=== PATIENT | female | born 1945 | race Caucasian/White ===

== ENCOUNTER 2017-07-29 16:50 | Inpatient (IN) | payer MEDICARE, MEDICAID ==
[2017-07-29] VITALS (8 sets, daily range): BP systolic 99–152; BP diastolic 57–74; PULSE 112–167; RESP 18–34; TEMP 97.9; O2SAT 92–100
[~2017-07-29] VITALS: Ht 162.6 cm; Wt 87.0 kg
[~2017-07-29 16:50] MED LIST: AMLO10TA2 PO; ASPI1TAB57 PO; ATOR40TA16 PO; LISI10TA3 PO; MELO15TA20 PO; METF500T PO; VARE1 PO; VENTAER INH
[2017-07-29] MEDS ORDERED: IODIXANOL 320 MG/ML 10 ML VIAL (for Rad CT) IVCONTRAST ONE (16:51)
[2017-07-29] MEDS ORDERED: SODIUM CHLORIDE 0.9% FLUSH 10 ML FLUSH IVF PRN (17:00)
[2017-07-29] MEDS ORDERED: methylPREDNISolone SOD SUCC 125 MG/2 ML VIAL IV PUSH ONE (17:00)
--- NOTE | 2017-07-29 17:06 | PD ---
HPI Chief Complaint: respiratory Time Seen by Provider: 17:00 Travel History International Travel<30 days: No Contact w/Intl Traveler<30days: No History of Present Illness HPI 71-year-old female with PMH of CAD status post CABG, PVD, DM, HTN, COPD, current smoker presents to the ED via EMS for evaluation at 2 day history of worsening shortness of breath. Also complains of tight sensation in the chest. That pain is rated 3/10. No alleviating or exacerbating factors reported. Patient states that the chest pain is chronic but has been worse over the last 2 days. Patient states that she could not sleep lying down last night and had to move to the recliner. She endorses chronic cough productive of pale sputum. She endorses edema in the lower extremities, worsening over the last few days. She denies fevers, chills, palpitations, nausea, vomiting, dysuria. EMS reports that they administered 2 albuterol treatments and gave the patient 3 doses of sublingual nitroglycerin en route. Patient states chest pain is now resolved. Patient took 325 mg of aspirin today. Industrial Psychology Teacher is Dr. Madden. [facility] Social History Tobacco Use: Yes Allergies-Medications (Allergen,Severity, Reaction): Coded Allergies: No Known Allergies (Unverified Allergy, Unknown, 07/29/17) Reported Meds & Prescriptions Reported Meds & Active Scripts Active Metformin (Metformin HCl) 500 Mg Tab 500 Mg PO DAILY With a meal Atorvastatin (Atorvastatin Calcium) 40 Mg Tab 40 Mg PO HS Lisinopril 10 Mg Tab 10 Mg PO DAILY Amlodipine (Amlodipine Besylate) 10 Mg Tab 10 Mg PO DAILY Reported Gabapentin 300 Mg Cap 300 Mg PO HS Aspirin 81 (Aspirin) 81 Mg Tabdr 325 Mg PO DAILY 30 Days Ventolin Hfa 18 GM Inh (Albuterol Sulfate) 90 Mcg/Act Aer 2 Puff INH Q4H PRN Review of Systems Except as stated in HPI: all other systems reviewed are Neg Physical Exam Narrative GENERAL: Well-nourished, well-developed white female in mild respiratory distress. SKIN: Focused skin assessment warm/dry. HEAD: Normocephalic. EYES: No scleral icterus. No injection or drainage. NECK: Supple, trachea midline. No JVD or lymphadenopathy. CARDIOVASCULAR: Irregularly irregular rate and rhythm without murmurs, gallops, or rubs. CHEST: Nontender throughout without deformity or crepitus. No retractions. RESPIRATORY: Breath sounds tight and wheezing bilaterally. Positive accessory muscle use. GASTROINTESTINAL: Abdomen soft, non-tender, nondistended. MUSCULOSKELETAL: No cyanosis. 1+ edema to the mid smith bilaterally. BACK: Nontender without obvious deformity. No CVA tenderness. Data Data Last Documented VS Vital Signs Date Time Temp Pulse Resp B/P (MAP) Pulse Ox O2 Delivery O2 Flow Rate FiO2 07/29/17 19:32 23 07/29/17 18:39 112 111/64 (80) 99 BiPAP 07/29/17 18:02 4.00 07/29/17 16:55 97.9 Orders Orders Complete Blood Count With Diff (07/29/17 17:00) Comprehensive Metabolic Panel (07/29/17 17:00) B-Type Natriuretic Peptide (07/29/17 17:00) Act Partial Throm Time (Ptt) (07/29/17 17:00) Prothrombin Time / Inr (Pt) (07/29/17 17:00) Magnesium (Mg) (07/29/17 17:00) Ckmb (Isoenzyme) Profile (07/29/17 17:00) Troponin I (07/29/17 17:00) Urinalysis - C+S If Indicated (07/29/17 17:00) Iv Access Insert/Monitor (07/29/17 17:00) Electrocardiogram (07/29/17 17:00) Ecg Monitoring (07/29/17 17:00) Oximetry (07/29/17 17:00) Oxygen Administration (07/29/17 17:00) Chest, Single Ap (07/29/17 17:00) Ct Pulmonary Angiogram (07/29/17 17:00) Sodium Chloride 0.9% Flush (Ns Flush) (07/29/17 17:00) Methylprednisolone So Succ Inj (Solumedr (07/29/17 17:00) Albuterol-Ipratropium Neb (Duoneb Neb) (07/29/17 17:00) Nitroglycerin 2% Oint (Nitroglycerin 2% (07/29/17 17:15) Furosemide Inj (Lasix Inj) (07/29/17 18:15) Diltiazem Inj (Cardizem Inj) (07/29/17 18:15) Heparin Inj (Heparin Inj) (07/29/17 18:15) Heparin Inj (Heparin Inj) (07/30/17 00:15) Heparin Inj (Heparin Inj) (07/30/17 00:15) Heparin-D5w 25,000 U/250 Ml (Heparin-D5w (07/29/17 18:15) Resp Bipap / Cpap Non Invas Vt (07/29/17 ) Morphine Inj (Morphine Inj) (07/29/17 18:30) Ondansetron Inj (Zofran Inj) (07/29/17 18:30) Electrocardiogram (07/29/17 17:48) Iodixanol 320 Inj (Rad Ct) (Visipaque 32 (07/29/17 16:51) Act Partial Throm Time (Ptt) (07/30/17 01:30) Admit Order (Ed Use Only) (07/29/17 19:42) Labs Laboratory Tests Test 07/29/17 17:10 White Blood Count 14.9 TH/MM3 Red Blood Count 4.16 MIL/MM3 Hemoglobin 13.4 GM/DL Hematocrit 40.6 % Mean Corpuscular Volume 97.6 FL Mean Corpuscular Hemoglobin 32.3 PG Mean Corpuscular Hemoglobin Concent 33.1 % Red Cell Distribution Width 13.5 % Platelet Count 307 TH/MM3 Mean Platelet Volume 8.8 FL Neutrophils (%) (Auto) 79.7 % Lymphocytes (%) (Auto) 11.4 % Monocytes (%) (Auto) 7.4 % Eosinophils (%) (Auto) 1.0 % Basophils (%) (Auto) 0.5 % Neutrophils # (Auto) 11.9 TH/MM3 Lymphocytes # (Auto) 1.7 TH/MM3 Monocytes # (Auto) 1.1 TH/MM3 Eosinophils # (Auto) 0.2 TH/MM3 Basophils # (Auto) 0.1 TH/MM3 CBC Comment DIFF FINAL Differential Comment Prothrombin Time 10.3 SEC Prothromb Time International Ratio 1.0 RATIO Activated Partial Thromboplast Time 26.9 SEC Blood Urea Nitrogen 20 MG/DL Creatinine 1.59 MG/DL Random Glucose 131 MG/DL Total Protein 8.1 GM/DL Albumin 3.9 GM/DL Calcium Level 9.2 MG/DL Magnesium Level 1.9 MG/DL Alkaline Phosphatase 92 U/L Aspartate Amino Transf (AST/SGOT) 26 U/L Alanine Aminotransferase (ALT/SGPT) 23 U/L Total Bilirubin 0.4 MG/DL Sodium Level 138 MEQ/L Potassium Level 4.3 MEQ/L Chloride Level 104 MEQ/L Carbon Dioxide Level 22.5 MEQ/L Anion Gap 12 MEQ/L Estimat Glomerular Filtration Rate 32 ML/MIN Total Creatine Kinase 91 U/L Troponin I 0.39 NG/ML B-Type Natriuretic Peptide 493 PG/ML MDM Medical Decision Making Medical Screen Exam Complete: Yes Emergency Medical Condition: Yes Differential Diagnosis COPD exacerbation versus pneumonia versus ACS versus angina versus CHF versus other Narrative Course 71-year-old female with PMH of CAD status post CABG, PVD, DM, HTN, COPD, current smoker presents to the ED via EMS for evaluation at 2 day history of worsening SOB and orthopnea. Also complains of tight sensation in the chest, rated 3/10. She endorses chronic cough productive of pale sputum. She endorses worsening edema in the lower extremities 2 days. EMS reports that they administered 2 albuterol treatments and gave the patient 3 doses of sublingual nitroglycerin en route. Patient states chest pain is now resolved. Patient took 325 mg of aspirin today. Industrial Psychology Teacher is Dr. Madden. Patient afebrile, heart rate 139, BP 152/74, respiratory rate 34 with a O2 saturation of 92% on room air on presentation. On exam this is an obese white female in no acute distress. Heart rate irregularly irregular with tight and wheezy breath sounds bilaterally. 1+ LE edema bilaterally. EKG rate 40, A. fib with RVR. Normal axis. ST depression in the lateral leads. Reviewed by Dr. Sigala. CXR: Mild bibasilar infiltrates, interstitial changes in both lung valle. Troponin: 0.39. BNP 493 CBC: WBC 14.9. Hemoglobin 13.4. INR 1.0. CMP: BUN 20, creatinine 1.59. Glucose 131. Patient began to complain of chest pain and repeat EKG was performed with no evolving changes. Nitro paste was applied. On recheck O2 saturations in the low 90s despite 4 L by nasal cannula. BiPAP was applied. Patient was administered 10 mg Cardizem, 40 mg Lasix, heparin bolus and drip was initiated. Patient complained of arthritic pain and was administered 4 mg morphine with an accompanying dose of Zofran. Dr. Porter spoke with Dr. Miller, section maintainer for Dr. Madden, who is agreeable with the care plan and would like the patient made nothing by mouth at midnight. Plan to admit to the residents. The patient is agreeable to this plan. I spoke with the residents who agreed to accept the patient to the medicine service under Dr. Sun. Please see medicine notes for disposition. Ana Paula Fitzgerald Jul 29, 2017 17:05
[2017-07-29] MEDS: RESP: ALBUTEROL 2.5 MG/IPRATROPIUM 0.5 MG NEB (SCH) INH ×2 (17:14→17:15)
[2017-07-29] MEDS ORDERED: ASPIRIN 325 MG TAB PO ONE (17:15)
[2017-07-29] MEDS ORDERED: NITROGLYCERIN 2% OINT 1 GM PACKET TOP ONE (17:15)
--- NOTE | 2017-07-29 17:20 | RADRPT ---
EXAM DATE/TIME: 07/29/2017 17:12 [facility] COMPARISON: No previous studies available for comparison. INDICATIONS : Patient states chest pains. MEDICAL HISTORY : Hypertension. SURGICAL HISTORY : CABG. ENCOUNTER: Initial ACUITY: 1 day PAIN SCORE: 6/10 LOCATION: Bilateral chest FINDINGS: A single view of the chest demonstrates mild infiltrates in both lung bases. There is interstitial ch anges bilaterally suggestive of some interstitial disease. Heart size is within normal limits. There is evidence of previous cardiothoracic surgery. No significant pleural effusions. The bony structures are grossly intact. Board Certified Radiologist. This report was verified electronically. Conclusion: Mild bibasilar infiltrates. Interstitial changes in both lung valle.
[2017-07-29] MEDS ORDERED: GABA300C5 PO (17:26)
[2017-07-29 17:35] LABS: AUTOMATED NEUTROPHIL # 11.9 TH/MM3 (1.8-7.7); BASOPHIL # 0.1 TH/MM3 (0-0.2); BASOPHIL % 0.5 % (0.0-2.0); EOSINOPHIL # 0.2 TH/MM3 (0-0.4); HEMATOCRIT 40.6 % (35.0-46.0); HEMOGLOBIN 13.4 GM/DL (11.6-15.3); LYMPH % 11.4 % (9.0-44.0); LYMPHOCYTE # 1.7 TH/MM3 (1.0-4.8); MEAN CELL VOLUME 97.6 FL (80.0-100.0); MEAN CORPUSCULAR HEMOGLOBIN 32.3 PG (27.0-34.0); MEAN CORPUSCULAR HGB CONC 33.1 % (32.0-36.0); MEAN PLATELET VOLUME 8.8 FL (7.0-11.0); MONO % 7.4 % (0.0-8.0); MONOCYTE # 1.1 TH/MM3 (0-0.9); NEUT % 79.7 % (16.0-70.0); PLATELET COUNT 307 TH/MM3 (150-450); RED BLOOD COUNT 4.16 MIL/MM3 (4.00-5.30); RED CELL DISTRIBUTION WIDTH 13.5 % (11.6-17.2); WHITE BLOOD COUNT 14.9 TH/MM3 (4.0-11.0)
[2017-07-29 17:47] LABS: PROTHROMBIN TIME - PATIENT 10.3 SEC (9.8-11.6)
[2017-07-29 18:02] LABS: ALBUMIN 3.9 GM/DL (3.4-5.0); AST (GOT) 26 U/L (15-37); BICARBONATE 22.5 MEQ/L (21.0-32.0); BLOOD UREA NITROGEN 20 MG/DL (7-18); CALCIUM 9.2 MG/DL (8.5-10.1); CHLORIDE 104 MEQ/L (98-107); CREATININE 1.59 MG/DL (0.50-1.00); GLOMERULAR FILTRATION RATE 32 ML/MIN (>89); GLUCOSE,RANDOM 131 MG/DL (74-106); MAGNESIUM 1.9 MG/DL (1.5-2.5); SODIUM (NA) 138 MEQ/L (136-145)
[2017-07-29 18:04] LABS: ALKALINE PHOSPHATASE 92 U/L (45-117); ALT (GPT) 23 U/L (10-53); TOTAL BILIRUBIN ADULT 0.4 MG/DL (0.2-1.0); TOTAL PROTEIN 8.1 GM/DL (6.4-8.2); TROPONIN I 0.39 NG/ML (0.02-0.05)
[2017-07-29] MEDS ORDERED: FUROSEMIDE 40 MG/4 ML VIAL IV PUSH ONE (18:15)
[2017-07-29] MEDS ORDERED: ACETAMINOPHEN/HYDROcodone 325 MG/5 MG TAB PO ONE (18:15)
[2017-07-29] MEDS ORDERED: DILTIAZEM HCL 25 MG/5 ML VIAL IV ONE (18:15)
[2017-07-29] MEDS ORDERED: HEPARIN SODIUM - IV 10,000 UNITS/10 ML VIAL IV ONE (18:15)
[2017-07-29] MEDS ORDERED: MORPHINE SULFATE 2 MG/ML SYRINGE IV PUSH ONE (18:30)
[2017-07-29] MEDS ORDERED: ONDANSETRON HCL 4 MG/2 ML VIAL IV PUSH ONE (18:30)
--- NOTE | 2017-07-29 18:43 | PD ---
Physical Exam Date Seen by Provider: Jul 29, 2017 Time Seen by Provider: 17:30 Narrative I, Dr. Cole, have reviewed the advance practice practitioner's documentation and am in agreement, met with the patient face to face, made the diagnosis, and the medical decision making was done by me. *My assessment and Findings: Patient seen and evaluated with PA, please see PA notes for further details. She is here for worsening Dyspnea on exertion, chest discomfort, and comes in in respiratory distress. She is tachycardic with A. fib with RVR in the 140s. EKG is notable for T-wave depressions in the lateral leads, questionable underlying unstable angina. Had been given nitroglycerin by EMS with some relief. Saturations are low in the ER. Workup was initiated and nitroglycerin given. Laboratory Tests Test 07/29/17 17:10 White Blood Count 14.9 TH/MM3 (4.0-11.0) Neutrophils (%) (Auto) 79.7 % (16.0-70.0) Neutrophils # (Auto) 11.9 TH/MM3 (1.8-7.7) Monocytes # (Auto) 1.1 TH/MM3 (0-0.9) Blood Urea Nitrogen 20 MG/DL (7-18) Creatinine 1.59 MG/DL (0.50-1.00) Random Glucose 131 MG/DL (74-106) Estimat Glomerular Filtration Rate 32 ML/MIN (>89) Troponin I 0.39 NG/ML (0.02-0.05) B-Type Natriuretic Peptide 493 PG/ML (0-100) Last 24 hours Impressions Chest X-Ray 07/29/17 1700 Signed Impressions: Service Date/Time: Saturday, July 29, 2017 17:12 - CONCLUSION: Mild bibasilar infiltrates. Interstitial changes in both lung valle. MD Chest x-ray is concerning for bilateral infiltrates, questionable underlying pulmonary edema. BNP is 500. She also has elevated troponin as well. She is initiated on Cardizem drip and bolus for rate control, nitroglycerin was given, heparin initiated due to new onset A. fib since we did not know any previous history. Lasix was also given. Case was discussed with Dr. Miller and he states he keep the patient n.p.o. after midnight. He would consider putting the patient on nitroglycerin drip if the above is not improving her symptoms. She was also put on BiPAP as well for respiratory distress. Case is discussed with family practice resident service for admission for further treatment. Data Data Last Documented VS Vital Signs Date Time Temp Pulse Resp B/P (MAP) Pulse Ox O2 Delivery O2 Flow Rate FiO2 07/29/17 18:02 167 24 120/64 (82) 93 Nasal Cannula 4.00 07/29/17 16:55 97.9 Orders Orders Complete Blood Count With Diff (07/29/17 17:00) Comprehensive Metabolic Panel (07/29/17 17:00) B-Type Natriuretic Peptide (07/29/17 17:00) Act Partial Throm Time (Ptt) (07/29/17:00) Prothrombin Time / Inr (Pt) (07/29/17:00) Magnesium (Mg) (07/29/17 17:00) Ckmb (Isoenzyme) Profile (07/29/17 17:00) Troponin I (07/29/17:00) Urinalysis - C+S If Indicated (07/29/17 17:00) Iv Access Insert/Monitor (07/29/17 17:00) Electrocardiogram (07/29/17 17:00) Ecg Monitoring (07/29/17:00) Oximetry (07/29/17 17:00) Oxygen Administration (07/29/17 17:00) Chest, Single Ap (07/29/17 17:00) Ct Pulmonary Angiogram (07/29/17 17:00) Sodium Chloride 0.9% Flush (Ns Flush) (07/29/17 17:00) Methylprednisolone So Succ Inj (Solumedr (07/29/17 17:00) Albuterol-Ipratropium Neb (Duoneb Neb) (07/29/17 17:00) Nitroglycerin 2% Oint (Nitroglycerin 2% (07/29/17 17:15) Furosemide Inj (Lasix Inj) (07/29/17 18:15) Diltiazem Inj (Cardizem Inj) (07/29/17 18:15) Heparin Inj (Heparin Inj) (07/29/17 18:15) Heparin Inj (Heparin Inj) (07/30/17 00:15) Heparin Inj (Heparin Inj) (07/30/17 00:15) Heparin-D5w 25,000 U/250 Ml (Heparin-D5w (07/29/17 18:15) Resp Bipap / Cpap Non Invas Vt (07/29/17 ) Morphine Inj (Morphine Inj) (07/29/17 18:30) Ondansetron Inj (Zofran Inj) (07/29/17 18:30) Labs Laboratory Tests Test 07/29/17 17:10 White Blood Count 14.9 TH/MM3 Red Blood Count 4.16 MIL/MM3 Hemoglobin 13.4 GM/DL Hematocrit 40.6 % Mean Corpuscular Volume 97.6 FL Mean Corpuscular Hemoglobin 32.3 PG Mean Corpuscular Hemoglobin Concent 33.1 % Red Cell Distribution Width 13.5 % Platelet Count 307 TH/MM3 Mean Platelet Volume 8.8 FL Neutrophils (%) (Auto) 79.7 % Lymphocytes (%) (Auto) 11.4 % Monocytes (%) (Auto) 7.4 % Eosinophils (%) (Auto) 1.0 % Basophils (%) (Auto) 0.5 % Neutrophils # (Auto) 11.9 TH/MM3 Lymphocytes # (Auto) 1.7 TH/MM3 Monocytes # (Auto) 1.1 TH/MM3 Eosinophils # (Auto) 0.2 TH/MM3 Basophils # (Auto) 0.1 TH/MM3 CBC Comment DIFF FINAL Differential Comment Prothrombin Time 10.3 SEC Prothromb Time International Ratio 1.0 RATIO Activated Partial Thromboplast Time 26.9 SEC Blood Urea Nitrogen 20 MG/DL Creatinine 1.59 MG/DL Random Glucose 131 MG/DL Total Protein 8.1 GM/DL Albumin 3.9 GM/DL Calcium Level 9.2 MG/DL Magnesium Level 1.9 MG/DL Alkaline Phosphatase 92 U/L Aspartate Amino Transf (AST/SGOT) 26 U/L Alanine Aminotransferase (ALT/SGPT) 23 U/L Total Bilirubin 0.4 MG/DL Sodium Level 138 MEQ/L Potassium Level 4.3 MEQ/L Chloride Level 104 MEQ/L Carbon Dioxide Level 22.5 MEQ/L Anion Gap 12 MEQ/L Estimat Glomerular Filtration Rate 32 ML/MIN Total Creatine Kinase 91 U/L Troponin I 0.39 NG/ML [facility] Medical Record Reviewed: Yes Supervised Visit with JEFFERY: Yes Diagnosis Primary Impression: New onset a-fib Additional Impressions: CHF (congestive heart failure) Unstable angina Admitting Information Admitting Physician Requests: Admit Aida Cole MD Jul 29, 2017 18:43
[2017-07-29] MEDS: HEPARIN-D5W 25,000 U/250 ML 250 ML IV PRN (19:29)
--- NOTE | 2017-07-29 19:36 | RADRPT ---
EXAM DATE/TIME: 07/29/2017 19:11 [facility] COMPARISON: No previous studies available for comparison. INDICATIONS : Chest pain, shortness of breath. IV CONTRAST: 75 cc Visipaque (iodixanol) IV RADIATION DOSE: 10.84 CTDIvol (mGy) MEDICAL HISTORY : Hypertension. SURGICAL HISTORY : CABG Hysterectomy. ENCOUNTER: Initial ACUITY: 1 day PAIN SCALE: 4/10 LOCATION: chest TECHNIQUE: Volumetric scanning of the chest was performed using a pulmonary embolism protocol MIP images were re constructed. Using automated exposure control and adjustment of the mA and/or kV according to patien t size, radiation dose was kept as low as reasonably achievable to obtain optimal diagnostic quality images. DICOM format image data is available electronically for review and comparison. Follow-up recommendations for detected pulmonary nodules are based at a minimum on nodule size and pa tient risk factors according to Fleischner Society Guidelines. FINDINGS: PULMONARY ARTERIES: No filling defects are seen in the pulmonary arteries through the segmental level. LUNGS: There is increased density at the posterior lower lobes bilaterally. PLEURAE: There is no pleural thickening or pleural effusion. MEDIASTINUM: There is good visualization of the great vessels of the middle mediastinum. No evidence of mediastin al or hilar adenopathy/mass. Atherosclerotic calcifications are present. MUSCULOSKELETAL: The patient is status post sternotomy. Spurs are seen in the thoracic spine. MISCELLANEOUS: The visualized upper abdominal organs demonstrate no acute abnormality. CONCLUSION: 1. No pulmonary embolus. 2. Bibasilar areas of consolidation or atelectasis. Jhony Cabrera MD on July 29, 2017 at 19:32 Board Certified Radiologist. This report was verified electronically.
[2017-07-29] MEDS ORDERED: NITROGLYCERIN 0.4 MG SL 25 TABS/BTL SL PRN (20:00)
[2017-07-29] MEDS ORDERED: SODIUM CHLORIDE 0.9% FLUSH 10 ML FLUSH IV FLUSH PRN (20:00)
[2017-07-29] MEDS ORDERED: BISACODYL 10 MG SUPP RECTAL PRN (20:00)
[2017-07-29] MEDS ORDERED: NALOXONE HCL 0.4 MG/ML AMP IV PUSH PRN (20:00)
[2017-07-29] MEDS ORDERED: SENNOSIDES 8.6 MG TAB PO PRN (20:00)
[2017-07-29] MEDS ORDERED: MAGNESIUM HYDROXIDE SUSP 30 ML CUP PO PRN (20:00)
[2017-07-29] MEDS ORDERED: LACTULOSE SYRUP 20 GM/30 ML CUP PO PRN (20:00)
--- NOTE | 2017-07-29 20:18 | HHI.HP ---
HPI Service Family Medicine Primary Care Physician Priyank Freire MD Admission Diagnosis A. fib RVR, elevated troponin, respiratory distress Diagnoses: International Travel<30 Days: No Contact w/Intl Traveler<30days: No Known Affected Area: No History of Present Illness Patient is a 71-year-old female with past medical history of CAD s/p CABG, PVD, DM, HTN, COPD brought to the ED via [facility] after she developed sxs of severe chest pain and shortness of breath. Patient states that she has chronic history of constant CP and SOB but today it was the worst it has been and she decided to call 911. CP is worst with exertion. Endorses palpitations, LE swelling, weight gain, and orthopnea. Denies N/V, abdominal pain, blurry vision. Patient also has history of Left arm pain and states she currently has Left arm pain worst from wrist to hand, she attributes this pain to arthritis but has not be officially diagnosed. 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 Quinteros. Patient reports she had an echo done last wk. She is not on home oxygen and ambulates with a walker at baseline. In the ED patient was found to be in A. fib with RVR, elevated troponin of 0.39 and with heart rate ranging from 110--160s. She was started on heparin drip, given Cardizem 10 mg IV1, lasix 40mg IV x1, morphine 4mg x1, nitroglycerin x1, solumedrol 125mg IV x1, duoneb x3. Patient took home medications aspirin 325mg and atorvastatin this a.m. Patient was also placed on BiPAP due to low oxygen saturation of 92. Review of Systems Constitutional: COMPLAINS OF: Fatigue (past couple months), Weight gain (in 6mons), Dizziness (today, now resolved), Change in appetite (today), DENIES: Fever, Weight loss, Chills Eyes: DENIES: Blurred vision, Vision loss Ears, nose, mouth, throat: COMPLAINS OF: Throat pain, Running Nose Respiratory: COMPLAINS OF: Cough (chronic), Wheezing, Sputum production (pale yellow), Shortness of breath Cardiovascular: COMPLAINS OF: Chest pain, Palpitations, Lower Extremity Edema, DENIES: Syncope Gastrointestinal: DENIES: Abdominal pain, Diarrhea, Nausea, Vomiting Genitourinary: COMPLAINS OF: Urinary frequency, DENIES: Dysuria Musculoskeletal: COMPLAINS OF: Back pain (chronic) Integumentary: DENIES: Rash Hematologic/lymphatic: DENIES: Bruising Neurologic: COMPLAINS OF: Localized weakness (chronic, left arem pain ), Paresthesias (hands), DENIES: Headache Past Family Social History Past Medical History Chronic Lower back pain Diabetes Type 2 - controlled metformin Hypertension Chronic Kidney Disease stage 3 (GFR 39, in 12/2016) COPD A fib Past Surgical History 3 stents in lower extremity Dr. Gardiner; 2015 (Left and right legs, and abdominal aorta) Right knee replacement; 2014 Dr. Alexander Lumbar Spine L5-S1 repair (2 spacers and rods, some hardware removed during second surgery); 2013 Dr. Valdes Right and Left Cataracts; 2005/2006, Dr. Montoya Triple CABG 2005; Dr. Romano Total Hysterectomy 1974 Foot surgery in 1972 Reported Medications Prescriptions Reviewed Last Reconciled on 05/23/17 10:51 by PRIYANK FREIRE 05/22/17 Metformin (Metformin) 500 Mg Tab 500 MG PO DAILY for Blood Sugar Management, #90 TAB 3 Refills Prov: Priyank Freire MD 05/22/17 Atorvastatin (Atorvastatin) 40 Mg Tab 40 MG PO HS for Cholesterol Management, #90 TAB 3 Refills Prov: Priyank Freire MD 05/21/17 Lisinopril (Lisinopril) 10 Mg Tab 10 MG PO DAILY, #90 TAB 3 Refills Prov: Priyank Freire MD 05/11/17 03/18/[address] (Aspirin 81) 81 Mg Tabdr 325MG PO DAILY for 30 Days, #30 TAB 0 Refills Reported 01/09/17 Amlodipine (Amlodipine) 10 Mg Tab 10 MG PO DAILY for Blood Pressure Management, #90 TAB 2 Refills Prov: Ap Huerta MD, R3 01/09/17 Albuterol 18 GM Inh (Ventolin Hfa 18 GM Inh) 90 Mcg/Act Aer 2 PUFF INH Q4H Y for SHORTNESS OF BREATH, #1 INHALER 0 Refills-- 5 -6 times a day advair BID, restarted last wk Allergies: Coded Allergies: No Known Allergies (Unverified Allergy, Unknown, 07/29/17) Family History Father - Diabetes Mellitus, passed at age of 69 y/o Mother - Ovarian cancer at the age 53 y/o 2 sisters - Good health 82 y/o, Nandini 76 y/o 3 children - healthy, son with HTN Social History Retired, lives alone and independent in activities of ADLs. Ambulates with walker at baseline. Current smoker: 1/2 pack per day since a couple of wks ago, prior smoking habit: 1 ppd for past 55 years, Denies alcohol and illicit drug use Son's contact info: Madhav Sosa [phone] Physical Exam Vital Signs Vital Signs Date Time Temp Pulse Resp B/P (MAP) Pulse Ox O2 Delivery O2 Flow Rate FiO2 07/29/17 19:51 121 20 115/64 (81) 100 BiPAP 100 07/29/17 19:32 23 07/29/17 18:39 112 23 111/64 (80) 99 BiPAP 07/29/17 18:02 167 24 120/64 (82) 93 Nasal Cannula 4.00 07/29/17 17:17 28 92 Nasal Cannula 4.00 07/29/17 17:10 93 Nasal Cannula 4.00 07/29/17 16:55 97.9 139 34 152/74 (100) 92 Physical Exam GENERAL: This is a well-nourished, well-developed patient, in no apparent distress. SKIN: No rashes, ecchymoses or lesions. Cool and dry. HEAD: Atraumatic. Normocephalic. EYES: Pupils equal round and reactive. Extraocular motions intact. No scleral icterus. No injection or drainage. ENT: Nose without bleeding, purulent drainage or septal hematoma. Unable to examine throat as pt was on Bipap machine. NECK: Trachea midline. No JVD or lymphadenopathy. Supple, nontender, no meningeal signs. CARDIOVASCULAR: irregular rate and rhythm without murmurs, gallops, or rubs. Chest pain not reproducible upon palpation. RESPIRATORY: Clear to auscultation. No wheezes, rales, or rhonchi. Limited to due bipap machine. GASTROINTESTINAL: Obese abdomen, soft, non-tender, nondistended. No hepato- splenomegaly, or palpable masses. No guarding. MUSCULOSKELETAL: Extremities without clubbing or cyanosis, +2 pedal edema noted BL. No joint tenderness, effusion, or edema noted. No calf tenderness. +2 DP pulses BL. NEUROLOGICAL: Awake and alert. Cranial nerves II through XII intact. Motor and sensory grossly within normal limits. Five out of 5 muscle strength in all muscle groups. Normal speech. Laboratory Laboratory Tests Test 07/29/17 17:10 White Blood Count 14.9 Red Blood Count 4.16 Hemoglobin 13.4 Hematocrit 40.6 Mean Corpuscular Volume 97.6 Mean Corpuscular Hemoglobin 32.3 Mean Corpuscular Hemoglobin Concent 33.1 Red Cell Distribution Width 13.5 Platelet Count 307 Mean Platelet Volume 8.8 Neutrophils (%) (Auto) 79.7 Lymphocytes (%) (Auto) 11.4 Monocytes (%) (Auto) 7.4 Eosinophils (%) (Auto) 1.0 Basophils (%) (Auto) 0.5 Neutrophils # (Auto) 11.9 Lymphocytes # (Auto) 1.7 Monocytes # (Auto) 1.1 Eosinophils # (Auto) 0.2 Basophils # (Auto) 0.1 CBC Comment DIFF FINAL Differential Comment Prothrombin Time 10.3 Prothromb Time International Ratio 1.0 Activated Partial Thromboplast Time 26.9 Blood Urea Nitrogen 20 Creatinine 1.59 Random Glucose 131 Total Protein 8.1 Albumin 3.9 Calcium Level 9.2 Magnesium Level 1.9 Alkaline Phosphatase 92 Aspartate Amino Transf (AST/SGOT) 26 Alanine Aminotransferase (ALT/SGPT) 23 Total Bilirubin 0.4 Sodium Level 138 Potassium Level 4.3 Chloride Level 104 Carbon Dioxide Level 22.5 Anion Gap 12 Estimat Glomerular Filtration Rate 32 Total Creatine Kinase 91 Troponin I 0.39 B-Type Natriuretic Peptide 493 Result Diagram: 07/29/170 07/29/17 171 Imaging Last Impressions Chest X-Ray 07/29/171699 Signed Impressions: Service Date/Time: Saturday, July 29, 2017 17:12 - CONCLUSION: Mild bibasilar infiltrates. Interstitial changes in both lung valle. CT Angiography 07/29/171699 Signed Impressions: Service Date/Time: Saturday, July 29, 2017 19:11 - CONCLUSION: 1. No pulmonary embolus. 2. Bibasilar areas of consolidation or atelectasis. MD Melecio Vazquez VTE Risk Assessment Caprini VTE Risk Assessment: Mod/High Risk (score >= 2) Caprini Risk Assessment Model Point Value = 1 Point Value = 2 Point Value = 3 Point Value = 5 Age 41-60 Minor surgery BMI > 25 kg/m2 Swollen legs Varicose veins or History of unexplained or recurrent spontaneous Oral contraceptives or hormone replacement Sepsis (< 1 month) Serious lung disease, including pneumonia (< 1 month) Abnormal pulmonary function Acute myocardial infarction Congestive heart failure (< 1 month) History of inflammatory bowel disease Medical patient at bed rest Age 61-74 Arthroscopic surgery Major open surgery (> 45 min) Laparoscopic surgery (> 45 min) Malignancy Confined to bed (> 72 hours) Immobilizing plaster cast Central venous access Age >= 75 History of VTE Family history of VTE Factor V Leiden Prothrombin [id number] Lupus anticoagulant Anticardiolipin antibodies Elevated serum homocysteine Heparin-induced thrombocytopenia Other congenital or acquired thrombophilia Stroke (< 1 month) Elective arthroplasty Hip, pelvis, or leg fracture Acute spinal cord injury (< 1 month) Prophylaxis Regimen Total Risk Factor Score Risk Level Prophylaxis Regimen 0-1 Low Early ambulation 2 Moderate Order ONE of the following: *Sequential Compression Device (SCD) *Heparin 5000 units SQ BID 3-4 Higher Order ONE of the following medications: *Heparin 5000 units SQ TID *Enoxaparin/Lovenox 40 mg SQ daily (WT < 150 kg, CrCl > 30 mL/min) *Enoxaparin/Lovenox 30 mg SQ daily (WT < 150 kg, CrCl > 10-29 mL/min) *Enoxaparin/Lovenox 30 mg SQ BID (WT < 150 kg, CrCl > 30 mL/min) AND/OR *Sequential Compression Device (SCD) 5 or more Highest Order ONE of the following medications: *Heparin 5000 units SQ TID (Preferred with Epidurals) *Enoxaparin/Lovenox 40 mg SQ daily (WT < 150 kg, CrCl > 30 mL/min) *Enoxaparin/Lovenox 30 mg SQ daily (WT < 150 kg, CrCl > 10-29 mL/min) *Enoxaparin/Lovenox 30 mg SQ BID (WT < 150 kg, CrCl > 30 mL/min) AND *Sequential Compression Device (SCD) Assessment and Plan Assessment and Plan Patient is a 71-year-old female with past medical history of CAD s/p CABG, PVD, DM, HTN, COPD brought to the ED via [facility] after she developed sxs of severe chest pain and shortness of breath. In he ED patient was found to be in A. fib with RVR, elevated troponin of 0.39 with heart rate ranging from 110--160s and oxygen saturations in the low 90s. Patient admitted for management of NSTEMI and respiratory distress. Code Status Full code Discussed Condition With SDW Dr. Kaden Carter Problem List: (1) NSTEMI (non-ST elevated myocardial infarction) ICD Codes: I21.4 - Non-ST elevation (NSTEMI) myocardial infarction Status: Acute Plan: EKG: Atrial fib with RVR troponin x1 of 0.39 with heart rate ranging from 110--160s In the ED started on heparin drip, given Cardizem 10 mg IV1, lasix 40mg IV x1, morphine 4mg x1, nitroglycerin x1, solumedrol 125mg IV x1, duoneb x3. Patient took home medications aspirin 325mg and atorvastatin this a.m. Patient with improved sxs Imaging: CTA-No pulmonary embolus. Babasilar areas of consolidation or atelectasis BNP of 493, no hx of CHF. Will f/u results of echo that was done last wk per pt. Placed on telemetry Cardiology consulted, appreciate recommendations -patient to be NPO after midnight Trend serial troponin and blueprint duplicator VS f/u am labs (2) Atrial fibrillation with RVR ICD Codes: I48.91 - Unspecified atrial fibrillation Plan: On admission patient found to be in A. fib with RVR on EKG Unclear where this this is new onset although patient stated that she has palpitation "all the time". Patient not on warfarin or any other rhythm alternating agent. Patient asymptomatic, with HR ranging 110-1 Patient received 1 dose of Cardizem 10 mg IV Cardizem drip when necessary with goal heart rate less than or equal to 110. Place on telemetry Will continue to monitor (3) Diabetes ICD Codes: E11.9 - Type 2 diabetes mellitus without complications Plan: Home metformin medication held Placed on SSI low dose hypoglycemia protocol monitor AccuChecks (4) Hypertension ICD Codes: I10 - Essential (primary) hypertension Status: Chronic Plan: resume home medications tomorrow patient given cardizem 10mg IV x1 in the ED BP 123/90s during exam continue to monitor (5) COPD (chronic obstructive pulmonary disease) ICD Codes: J44.9 - Chronic obstructive pulmonary disease, unspecified Status: Chronic Plan: Patient given solumedrol and 3 duoneb treatments in the ED continue to monitor respiratory status After admission exam respiratory therapist were reassessed patient for need of Bipap machine. Pt tolerated being off bipap machine and was placed on NC at 4L Duoneb PRN (6) Chronic kidney disease (CKD) ICD Codes: N18.9 - Chronic kidney disease, unspecified Plan: BUN- 20/Cr- 1.59 Avoid nephrotoxic agents continue to monitor Patient not on HD (7) Nutrition, metabolism, and development symptoms ICD Codes: R63.8 - Other symptoms and signs concerning food and fluid intake Plan: Fluids: not indicated at this time Electrolytes: replete as needed Nutrition: NPO after midnight based on cardiology ( Dr. Miller's) recommendation. DVT ppx: hepatin ggt Physician Certification 2 Midnight Certification Type: Admission for Inpatient Services Order for Inpatient Services The services are ordered in accordance with Medicare regulations or non- Medicare payer requirements, as applicable. In the case of services not specified as inpatient-only, they are appropriately provided as inpatient services in accordance with the 2-midnight benchmark. Estimated LOS (days): 4 days is the estimated time the patient will need to remain in the hospital, assuming treatment plan goals are met and no additional complications. Post-Hospital Plan: Not yet determined Problem Qualifiers (1) Diabetes: (2) Chronic kidney disease (CKD): Qualified Codes: N18.3 - Chronic kidney disease, stage 3 (moderate) Kassi Shah MD, R1 Jul 29, 2017 20:18
[2017-07-29] MEDS ORDERED: DILTIAZEM INJ 125 MG in SODIUM CHLORIDE 0.9% INJ 100 ML IV PRN (21:00)
[2017-07-29] MEDS ORDERED: GLUCAGON 1 MG/ML VIAL OTHER PRN (21:00)
[2017-07-29] MEDS ORDERED: DEXTROSE 50% IN WATER 50 ML VIAL(D50) IV PUSH PRN (21:00)
[2017-07-29] MEDS ORDERED: ATORVASTATIN 40 MG TAB PO SCH (21:00)
[2017-07-29] MEDS: GABAPENTIN 300 MG CAP PO SCH (21:53)
[2017-07-29] MEDS: SODIUM CHLORIDE 0.9% FLUSH 10 ML FLUSH IV FLUSH SCH (21:53)
[2017-07-29] MEDS: DOCUSATE SODIUM 50 MG/SENNA 8.6 MG TAB PO SCH (21:54)
[2017-07-29] MEDS: INSULIN ASPART SUPPLEMENTAL SCALE SQ SCH (21:55)
[2017-07-30] VITALS (19 sets, daily range): BP systolic 90–124; BP diastolic 53–71; PULSE 96–130; RESP 12–32; TEMP 96.1–97.7; O2SAT 92–97
[2017-07-30] MEDS ORDERED: HEPARIN SODIUM - IV 10,000 UNITS/10 ML VIAL IV PRN (00:15)
[2017-07-30 01:03] LABS: TROPONIN I 1.26 NG/ML (0.02-0.05)
[2017-07-30 02:08] LABS: BILIRUBIN, URINE NEG (NEG); BLOOD, URINE NEG (NEG); GLUCOSE,URINE NEG (NEG); HYALINE CAST, URINE 1 /lpf (RARE); KETONE, URINE NEG (NEG); MUCUS URINE FEW /lpf (OCC); NITRITE,URINE NEG (NEG); SQUAMOUS EPITHELIAL CELL URINE 1 /hpf (0-5); TRANSITIONAL EPI CELLS, URINE 1 /hpf; URINE COLOR YELLOW (YELLW/STRAW); URINE LEUKOCYTE ESTERASE LARGE (NEG)
[2017-07-30 05:41] LABS: TROPONIN I 2.18 NG/ML (0.02-0.05)
[2017-07-30] MEDS: INSULIN ASPART SUPPLEMENTAL SCALE SQ SCH ×4 (08:00→20:27)
[2017-07-30] MEDS: SODIUM CHLORIDE 0.9% FLUSH 10 ML FLUSH IV FLUSH SCH ×2 (08:52→19:42)
[2017-07-30] MEDS: METOPROLOL TARTRATE 25 MG TAB PO SCH ×2 (08:52→19:43)
[2017-07-30] MEDS: DOCUSATE SODIUM 50 MG/SENNA 8.6 MG TAB PO SCH ×2 (08:52→19:43)
[2017-07-30] MEDS: ASPIRIN EC 325 MG TABEC PO SCH (08:52)
[2017-07-30] MEDS: LISINOPRIL 5 MG TAB PO SCH (08:57)
[2017-07-30] MEDS ORDERED: LISINOPRIL 10 MG TAB PO SCH (09:00)
[2017-07-30 09:29] LABS: CHOLESTEROL/ HDL RATIO 2.89 RATIO; HDL CHOLESTEROL 51.2 MG/DL (40.0-60.0)
[2017-07-30] MEDS ORDERED: LEVOFLOXACIN 750 MG TAB PO ONE (09:30)
[2017-07-30] MEDS ORDERED: RESP: ALBUTEROL 2.5 MG/3 ML NEB (PRN) INH (09:30)
--- NOTE | 2017-07-30 10:31 | HHI.FPPN ---
Subjective Remarks No acute events overnight. Patient states she is breathing better this morning. Denies substernal chest pain but continues to complain of chest discomfort at the R chest wall. Eating breakfast this morning and tolerating well. (Agustin King MD R1) Objective Vitals Vital Signs Date Time Temp Pulse Resp B/P (MAP) Pulse Ox O2 Delivery O2 Flow Rate FiO2 07/30/17 10:00 126 07/30/17 09:15 95 Nasal Cannula 3.00 07/30/17 09:00 97.7 129 32 97/64 (75) 97 07/30/17 08:00 07/30/17 06:30 103 18 105/69 (81) 96 Room Air 07/30/17 06:27 62 117/66 (83) 68 122/70 (87) 124/71 (88) 07/30/17 05:16 117 90/55 (67) 95 Nasal Cannula 4.00 07/30/17 01:12 106 20 94/53 (67) 94 Nasal Cannula 4.00 07/30/17 00:00 116 20 102/60 (74) 97 Nasal Cannula 4.00 07/29/17 22:52 113 18 102/71 (81) 95 Nasal Cannula 4.00 07/29/17 21:58 115 20 99/70 (80) 94 Nasal Cannula 4.00 07/29/17 21:09 122 20 123/57 (79) 95 Nasal Cannula 4.00 07/29/17 19:51 121 20 115/64 (81) 100 BiPAP 100 07/29/17 19:32 23 07/29/17 18:39 112 23 111/64 (80) 99 BiPAP 07/29/17 18:17 97 100 07/29/17 18:02 167 24 120/64 (82) 93 Nasal Cannula 4.00 07/29/17 17:17 28 92 Nasal Cannula 4.00 07/29/17 17:10 Nasal Cannula 4.00 07/29/17 17:10 93 Nasal Cannula 4.00 07/29/17 16:55 97.9 139 34 152/74 (100) 92 (Agustin King MD R1) Result Diagram: 07/29/17 1710 07/29/17 1710 Objective Remarks GENERAL: This is a well-nourished, well-developed patient, in no apparent distress. NC in place and sitting upright in bed comfortably. SKIN: No rashes, ecchymoses or lesions. Cool and dry. HEAD: Atraumatic. Normocephalic. EYES: Pupils equal round and reactive. Extraocular motions intact. No scleral icterus. No injection or drainage. ENT: Nose without bleeding, purulent drainage or septal hematoma. NECK: Trachea midline. No JVD or lymphadenopathy. Supple, nontender, no meningeal signs. CARDIOVASCULAR: irregular rate and rhythm without murmurs, gallops, or rubs. RESPIRATORY: Clear to auscultation. No wheezes, rales, or rhonchi. GASTROINTESTINAL: Obese abdomen, soft, non-tender, nondistended. No hepato- splenomegaly, or palpable masses. No guarding. MUSCULOSKELETAL: Extremities without clubbing or cyanosis, +2 pedal edema noted BL. No joint tenderness, effusion, or edema noted. No calf tenderness. +2 DP pulses BL. NEUROLOGICAL: Awake and alert. Cranial nerves II through XII intact. Motor and sensory grossly within normal limits. Five out of 5 muscle strength in all muscle groups. Normal speech. (Agustin King MD R1) A/P Assessment and Plan Patient is a 71-year-old female with past medical history of CAD s/p CABG, PVD, DM, HTN, COPD brought to the ED via [facility] after she developed sxs of severe chest pain and shortness of breath. In he ED patient was found to be in A. fib with RVR, elevated troponin of 0.39 with heart rate ranging from 110--160s and oxygen saturations in the low 90s. Patient admitted for management of NSTEMI and respiratory distress. Troponins trended up to 2.18 on morning of 07/30. Cardiology consulted and patient is electing to allow kidney function to improve prior to heart cath. (Agustin King MD R1) Attending Attestation Table rounds this morning with Dr Green, Dr Kaden Carter, Dr King and Dr Shah Patients admission and hospital course discussed in detail EMR reviewed Patient interviewed and examined with medical team Agree with contents of above documentation See Orders (En Sun MD) Problem List: (1) NSTEMI (non-ST elevated myocardial infarction) ICD Codes: I21.4 - Non-ST elevation (NSTEMI) myocardial infarction Status: Acute Plan: EKG: Atrial fib with RVR troponin elevated at 0.39 -> increased to 2.18 on morning of 07/30 In the ED started on heparin drip, given Cardizem 10 mg IV1, lasix 40mg IV x1, morphine 4mg x1, nitroglycerin x1, solumedrol 125mg IV x1, duoneb x3. Patient with improved sxs Placed on telemetry Imaging: CTA-No pulmonary embolus. Babasilar areas of consolidation or atelectasis BNP of 493, no hx of CHF. Echocardiogram pending Cardiology consulted - will await improvement in renal function prior to proceeding with heart cath Continuing Heparin drip protocol Starting ASA 325mg po daily Lipitor 40mg po HS (2) Atrial fibrillation with RVR ICD Codes: I48.91 - Unspecified atrial fibrillation Plan: On admission patient found to be in A. fib with RVR on EKG Unclear where this this is new onset although patient stated that she has palpitation "all the time". Patient not on warfarin or any other rhythm alternating agent. Patient asymptomatic, with HR ranging 110-160 on admission Patient received 1 dose of Cardizem 10 mg IV in ED HR from 100-120 on morning of 07/30 Starting on Metoprolol Tartrate 25mg po BID Metoprolol Tartrate 5mg IV push PRN for HR >110 Telemetry Will continue to monitor (3) COPD (chronic obstructive pulmonary disease) ICD Codes: J44.9 - Chronic obstructive pulmonary disease, unspecified Status: Chronic Plan: Patient given solumedrol and 3 duoneb treatments in the ED Respiratory status improved but still requiring NC With CT findings showing bibasilar consolidation and increase oxygen demand, will treat for COPD exacerbation Levaquin 750mg once, 500mg [id number] (due to creatinine clearance less than 30) for 5 days (started 07/30) Prednisone 50mg daily for 5 days Duonebs, Albuterol PRN (4) Diabetes ICD Codes: E11.9 - Type 2 diabetes mellitus without complications Plan: Home metformin medication held Placed on SSI low dose hypoglycemia protocol monitor AccuChecks (5) Hypertension ICD Codes: I10 - Essential (primary) hypertension Status: Chronic Plan: Borderline hypotensive since admission Lisinopril 2.5mg po daily (decrease from home dose of 10mg) Holding home Amlodipine for now (6) Chronic kidney disease (CKD) ICD Codes: N18.9 - Chronic kidney disease, unspecified Plan: BUN- 20/Cr- 1.59 - received contrast with CT scan in ED Avoid nephrotoxic agents Will continue to trend daily - will need improvement prior to heart cath (7) Nutrition, metabolism, and development symptoms ICD Codes: R63.8 - Other symptoms and signs concerning food and fluid intake Plan: Fluids: not indicated at this time Electrolytes: replete as needed Nutrition: Clear liquid diet DVT ppx: hepatin ggt (Agustin King MD R1) Problem Qualifiers (1) Diabetes: (2) Chronic kidney disease (CKD): Qualified Codes: N18.3 - Chronic kidney disease, stage 3 (moderate) Agustin King MD R1 Jul 30, 2017 10:31 En Sun MD Jul 30, 2017 19:40
[2017-07-30] MEDS: RESP: ALBUTEROL 2.5 MG/IPRATROPIUM 0.5 MG NEB (SCH) INH ×3 (10:34→20:59)
[2017-07-30] MEDS: predniSONE 20 MG TAB PO SCH (10:46)
--- NOTE | 2017-07-30 10:54 | MB ---
cc: Sabi Madden MD DATE: 07/30/2017 REASON FOR CONSULTATION: New onset atrial fibrillation and congestive heart failure. HISTORY OF PRESENT ILLNESS: Ms. Sosa is a 71-year-old lady who does have a history of a CABG x 3 in 2005 with subsequent stenting of the SVG to the RCA and a known EF of 34%. She also has a history of hypertension, hyperlipidemia, diabetes, tobacco abuse and severe PAD with stenting in both of her legs and aorta. The patient had been doing well at home recently. She, in fact, was asymptomatic and undergoing preop evaluation for which she had a nuclear stress test. This did reveal an EF of 34%. There was a large inferolateral area of ischemia. There was also a basal infarct. The patient was asymptomatic until yesterday. She reports yesterday morning she began experiencing symptoms of progressive shortness of breath. She did have some chest pain as well, and this subsequently presented her emergency room visit. In the ER, she was found to be short of breath and in atrial fibrillation with rapid ventricular rate. She underwent a CT scan for PE which was negative. Cardiology was subsequently consulted. This morning, the patient reports that her chest pain has resolved. She still has some shortness of breath, although it is markedly improved. PAST MEDICAL HISTORY: Significant for severe CAD with prior CABG and subsequent stenting as above, ischemic cardiomyopathy, hypertension, hyperlipidemia, diabetes, severe PAD, chronic kidney disease with a recent creatinine of 1.7, tobacco abuse, COPD, and lower back pain. PAST SURGICAL HISTORY: Includes CABG, multiple peripheral stents, right knee replacement, lumbar spine repair, bilateral cataracts, hysterectomy and foot surgery. OUTPATIENT MEDICATIONS: Includes metformin, atorvastatin, lisinopril, aspirin, amlodipine, albuterol. SOCIAL HISTORY: The patient does live alone and continues to smoke. FAMILY HISTORY: Noncontributory. REVIEW OF SYSTEMS: The patient has had a great deal of back pain. Except for this and what is mentioned in the HPI, all 12 systems are negative. PHYSICAL EXAMINATION: VITAL SIGNS: 120, 18, blood pressure is 105/____. GENERAL: She is an obese female who is in no apparent distress. NECK: Free from JVD. LUNGS: Very decreased, but clear to auscultation. CARDIOVASCULAR EXAMINATION: She has an irregularly irregular rhythm. No rubs or gallops were appreciated. ABDOMEN: Soft. EXTREMITIES: Free from edema. LABORATORY DATA: White count of 14.9, creatinine of 1.59 and a BUN of 20. Her initial troponin was 0.39 and increased to a peak of 2.18. The BNP is 493. EKG shows atrial fibrillation with rapid ventricular rate. CT: 75 mL of contrast was used. There are bibasilar areas of consolidation or atelectasis and no pulmonary embolism was appreciated. IMPRESSIONS: Elevated troponin - This is likely multifactorial and certainly a primary ischemic event cannot be completely excluded at this time, although it does seem more likely that it is a secondary NH to the new onset of atrial fibrillation with rapid ventricular rate in the setting of severe kidney disease and preexisting coronary artery disease. In any case, she will need to be managed conservatively initially as she just had a contrast load less than 24 hours ago and has been on metformin. I discussed extensively with her whether or not we should proceed with heart catheterization. She understands that she would be at elevated risk because of her renal insufficiency and that we would likely have to wait several days to allow for her kidneys to stabilize and the inherent risks of catheterization which include, but are not limited to a several percent risk for , myocardial infarction, cerebrovascular accident, peripheral disease complications and bleeding and significant risk for her further renal impairment and even hemodialysis, the patient does wish to proceed with a heart catheterization when it is felt reasonable. In the interim, we will manage her conservatively. New onset atrial fibrillation - The patient does need to be rate controlled. We will use beta blockers given her LV impairment and ACS status. We also extensively discussed future anticoagulation as her CHADS-VASc score is at least a 5 with a point for female, over 65, hypertension, diabetes and PAD. She is going to call her insurance to see if she has any coverage for the new agents. Shortness of breath - This is likely multifactorial with severe chronic obstructive pulmonary disease, possibly congestive heart failure. Ischemic cardiomyopathy - As above. Hyperlipidemia - The patient notes that I recently increased her statin to 80 and she had to back it off to 40 as she had severe cramps. Smoking- asked to quit Sabi Madden MD BAB/DL/ , 08:10 AM , 09:03 AM NAIF
--- NOTE | 2017-07-30 14:02 | EKG ---
Date Performed: 07/29/2017 Time Performed: 17:06:23 PTAGE: 71 years EKG: ATRIAL FIBRILLATION WITH RAPID VENTRICULAR RESPONSE NONSPECIFIC ST & T-WAVE ABNORMALITY CAN NOT EXCLUDE ISCHEMIA ABNORMAL RHYTHM ECG NO PREVIOUS TRACING DOCTOR: Marco Vaca Interpretating Date/Time 07/30/2017 14:01:16
--- NOTE | 2017-07-30 14:03 | EKG ---
Date Performed: 07/29/2017 Time Performed: 17:48:37 PTAGE: 71 years EKG: ATRIAL FIBRILLATION WITH RAPID VENTRICULAR RESPONSE NONSPECIFIC ST & T-WAVE ABNORMALITY CAN NOT EXCLUDE ISCHEMIA ABNORMAL ECG Since PREVIOUS TRACING , no significant change noted PREVIOUS TRACING DOCTOR: Marco Vaca Interpretating Date/Time 07/30/2017 14:01:40
--- NOTE | 2017-07-30 14:03 | EKG ---
Date Performed: 07/29/2017 Time Performed: 19:54:48 PTAGE: 71 years EKG: ATRIAL FIBRILLATION WITH RAPID VENTRICULAR RESPONSE NONSPECIFIC ST & T-WAVE ABNORMALITY ABN ORMAL RHYTHM ECG Compared to PREVIOUS TRACING , the ventricular rate is slower. PREVIOUS TRACIN07/29/2017 17.48 DOCTOR: Marco Vaca Interpretating Date/Time 07/30/2017 14:01:55
[2017-07-30] MEDS: METOPROLOL TARTRATE 5 MG/5 ML VIAL IV PUSH PRN ×2 (14:48→19:40)
[2017-07-30] MEDS: PANTOPRAZOLE SOD 40 MG DELAYED RELEASE TAB PO SCH (18:19)
[2017-07-30] MEDS: NITROGLYCERIN 0.4 MG SL 25 TABS/BTL SL PRN ×2 (18:41→18:47)
[2017-07-30] MEDS: HEPARIN-D5W 25,000 U/250 ML 250 ML IV PRN (18:44)
[2017-07-30] MEDS: MORPHINE SULFATE 4 MG/ML INJ IV PUSH PRN (19:41)
[2017-07-30] MEDS: ONDANSETRON HCL 4 MG/2 ML VIAL IVP PRN (19:42)
[2017-07-30] MEDS: GABAPENTIN 300 MG CAP PO SCH (19:43)
[2017-07-30] MEDS: ATORVASTATIN 40 MG TAB PO SCH (19:43)
[2017-07-30] MEDS ORDERED: CHLORHEXIDINE GLUCONATE 2 % 1 PACK (2 CLOTHS)(extra cloths) TOPICAL PRN (21:30)
[2017-07-31] VITALS (17 sets, daily range): BP systolic 84–112; BP diastolic 62–76; PULSE 83–129; RESP 9–25; TEMP 96.1–98; O2SAT 89–96
[2017-07-31] MEDS: CHLORHEXIDINE GLUCONATE 2 % 1 PACK (2 CLOTHS)(taper/protocol) TOPICAL SCH (04:00)
[2017-07-31] MEDS: RESP: ALBUTEROL 2.5 MG/IPRATROPIUM 0.5 MG NEB (SCH) INH ×4 (04:21→20:38)
[2017-07-31] MEDS: METOPROLOL TARTRATE 5 MG/5 ML VIAL IV PUSH PRN ×2 (05:31→17:59)
[2017-07-31] MEDS: MORPHINE SULFATE 4 MG/ML INJ IV PUSH PRN (05:32)
[2017-07-31] MEDS: ONDANSETRON HCL 4 MG/2 ML VIAL IVP PRN (05:34)
--- NOTE | 2017-07-31 05:48 | RADRPT ---
EXAM DATE/TIME: 07/31/2017 04:41 [facility] COMPARISON: CT PULMONARY ANGIOGRAM, July 29, 2017, 19:11. CHEST SINGLE AP, July 29, 2017, 17:12. INDICATIONS : Cough. MEDICAL HISTORY : Hypertension. SURGICAL HISTORY : CABG. ENCOUNTER: Subsequent ACUITY: 3 days PAIN SCORE: 0/10 LOCATION: chest FINDINGS: Improved consolidation at the bases, now very mild. No effusion seen. No pneumothorax. Heart size stable, upper limits of normal. Patient has had previous median sternotomy. CONCLUSION: Decreasing bibasilar consolidation. Jhony Cheung MD on July 31, 2017 at 5:45 Board Certified Radiologist. This report was verified electronically.
[2017-07-31 05:50] LABS: AUTOMATED NEUTROPHIL # 12.3 TH/MM3 (1.8-7.7); HEMATOCRIT 35.6 % (35.0-46.0); HEMOGLOBIN 11.7 GM/DL (11.6-15.3); MEAN CELL VOLUME 97.1 FL (80.0-100.0); MEAN PLATELET VOLUME 9.2 FL (7.0-11.0); MONO % 5.5 % (0.0-8.0); MONOCYTE # 0.8 TH/MM3 (0-0.9); NEUT % 87.5 % (16.0-70.0); PLATELET COUNT 289 TH/MM3 (150-450); RED BLOOD COUNT 3.66 MIL/MM3 (4.00-5.30); RED CELL DISTRIBUTION WIDTH 13.2 % (11.6-17.2); WHITE BLOOD COUNT 14.1 TH/MM3 (4.0-11.0)
[2017-07-31 06:12] LABS: BICARBONATE 24.7 MEQ/L (21.0-32.0); CALCIUM 8.4 MG/DL (8.5-10.1); CREATININE 1.91 MG/DL (0.50-1.00)
[2017-07-31 06:27] LABS: TROPONIN I 1.76 NG/ML (0.02-0.05)
[2017-07-31] MEDS: INSULIN ASPART SUPPLEMENTAL SCALE SQ SCH ×4 (08:00→20:12)
[2017-07-31] MEDS: LISINOPRIL 5 MG TAB PO SCH (08:25)
[2017-07-31] MEDS: METOPROLOL TARTRATE 25 MG TAB PO SCH ×2 (08:26→19:56)
[2017-07-31] MEDS: predniSONE 20 MG TAB PO SCH (08:26)
[2017-07-31] MEDS: PANTOPRAZOLE SOD 40 MG DELAYED RELEASE TAB PO SCH (08:26)
[2017-07-31] MEDS: ASPIRIN EC 325 MG TABEC PO SCH (08:26)
[2017-07-31] MEDS: SODIUM CHLORIDE 0.9% FLUSH 10 ML FLUSH IV FLUSH SCH ×2 (08:27→20:12)
[2017-07-31] MEDS: DOCUSATE SODIUM 50 MG/SENNA 8.6 MG TAB PO SCH ×2 (08:27→20:00)
[2017-07-31] MEDS ORDERED: LEVOFLOXACIN 500 MG TAB PO SCH (09:00)
--- NOTE | 2017-07-31 10:36 | HHI.FPPN ---
Subjective Remarks Patient was seen and examined this morning. She denies chest pain and difficulty breathing now but did have chest pain overnight associated with tachycardic rate in the 130s, relieved after nitroglycerin and metoprolol. She wants advance in her diet today. She has reportedly only urinated 3 times since arrival to hospital. No bowel movement yet. Objective Vitals Vital Signs Date Time Temp Pulse Resp B/P (MAP) Pulse Ox O2 Delivery O2 Flow Rate FiO2 07/31/17 10:00 122 07/31/17 08:00 96.1 110 17 109/67 (81) 96 07/31/17 08:00 110 07/31/17 07:53 93 Nasal Cannula 3.00 07/31/17 07:00 92 Nasal Cannula 4.00 07/31/17 06:00 86 07/31/17 04:00 98.0 110 12 84/62 (69) 94 07/31/17 04:00 104 07/31/17 03:00 107 20 92/68 (76) 93 07/31/17 02:20 89 Nasal Cannula 4.00 07/31/17 02:00 115 15 99/64 (76) 90 07/31/17 02:00 115 07/31/17 01:00 113 12 101/70 (80) 89 07/31/17 01:00 113 12 101/70 (80) 89 07/31/17 00:01 97.5 120 12 105/72 (83) 90 07/31/17 00:00 93 Nasal Cannula 3.00 07/31/17 00:00 129 07/30/17 23:00 125 12 96/62 (73) 93 07/30/17 22:00 118 15 102/67 (79) 93 07/30/17 22:00 130 07/30/17 21:00 96 16 99/61 (74) 94 07/30/17 20:59 93 Nasal Cannula 3.00 07/30/17 20:00 92 Nasal Cannula 3.00 07/30/17 20:00 97.5 121 16 101/68 (79) 92 07/30/17 20:00 106 07/30/17 19:00 126 07/30/17 18:52 22 07/30/17 18:00 124 07/30/17 16:00 96.1 121 18 102/62 (75) 97 07/30/17 16:00 121 07/30/17 15:00 124 07/30/17 14:00 122 07/30/17 12:00 96.5 120 28 100/59 (73) 95 07/30/17 12:00 120 I/O 07/30/17 07/30/17 07/30/17 07/31/17 07/31/17 07/31/17 07:00 15:00 23:00 07:00 15:00 23:00 Intake Total 720 ml 1031 ml Output Total 525 ml 500 ml Balance 195 ml 531 ml Intake Oral 720 ml 700 ml IV Total 331 ml Output Urine Total 525 ml 500 ml # Bowel Movements 0 Result Diagram: 07/31/17 0425 07/31/17 0425 Imaging Last Impressions Chest X-Ray 07/31/17 0600 Signed Impressions: Service Date/Time: Monday, July 31, 2017 04:41 - CONCLUSION: Decreasing bibasilar consolidation. Jhony Cheung MD CT Angiography 07/29/17 1700 Signed Impressions: Service Date/Time: Saturday, July 29, 2017 19:11 - CONCLUSION: 1. No pulmonary embolus. 2. Bibasilar areas of consolidation or atelectasis. Jhony Cabrera MD Objective Remarks GENERAL: This is a well-nourished, well-developed patient, in no apparent distress. NC in place and sitting upright in bed comfortably. SKIN: No rashes, ecchymoses or lesions. Cool and dry. HEAD: Atraumatic. Normocephalic. EYES: Pupils equal round and reactive. Extraocular motions intact. No scleral icterus. No injection or drainage. ENT: Nose without bleeding or drainage. CARDIOVASCULAR: Irregular rate and rhythm without murmurs. RESPIRATORY: Clear to auscultation. No wheezes, rales, or rhonchi. GASTROINTESTINAL: Obese abdomen, soft, non-tender, nondistended. No hepato- splenomegaly, or palpable masses. No guarding. MUSCULOSKELETAL: Extremities without clubbing or cyanosis, +2 pedal edema noted BL. No joint tenderness, effusion, or edema noted. No calf tenderness. +2 DP pulses BL. NEUROLOGICAL: Awake and alert. Cranial nerves II through XII intact. Motor and sensory grossly within normal limits. Five out of 5 muscle strength in all muscle groups. Normal speech. Medications and IVs Inpatient Medications Albuterol Sulfate (Albuterol Neb) 2.5 mg Q2HR NEB PRN INH SHORTNESS OF BREATH; Start 07/30/17 at 09:30 Albuterol/ Ipratropium (Duoneb Neb) 1 ampule Q6HR NEB INH Last administered on 07/31/17at 07:51; Start 07/30/17 at 10:00 Amlodipine Besylate (Norvasc) 10 mg DAILY PO ; Start 07/30/17 at 09:00; Stop at 09:00; Status DC Aspirin (Ecotrin Ec) 325 mg DAILY PO Last administered on 07/31/17at 08:26; Start 07/30/17 at 09:00 Atorvastatin Calcium (Lipitor) 40 mg HS PO Last administered on 07/30/17at 19:43 ; Start 07/30/17 at 21:00 Bisacodyl (Dulcolax Supp) 10 mg DAILY PRN RECTAL SEVERE CONSITIPATION; Start at 20:00 Chlorhexidine Gluconate (Chlorhexidine 2% Cloth) 3 pack UNSCH PRN TOPICAL HYGIENIC CARE; Start 07/30/17 at 21:30; Stop 08/04/17 at 21:15 Dextrose (D50w (Vial) Inj) 50 ml UNSCH PRN IV PUSH HYPOGLYCEMIA-SEE COMMENTS; Start 07/29/17 at 21:00 Diltiazem HCl (Cardizem Cd) 240 mg DAILY PO Last administered on 07/31/17at 11: 07; Start 07/31/17 at 11:00 Diltiazem HCl (Cardizem Inj) 15 mg ONCE ONCE IV Last administered on at 10:58; Start 07/31/17 at 11:00; Stop 07/31/17 at 11:01; Status DC Diltiazem HCl 125 mg/Sodium Chloride 125 ml @ 5 mls/hr TITRATE PRN IV Tachycardia; Start 07/29/17 at 21:00; Stop 07/30/17 at 08:16; Status DC Furosemide (Lasix Inj) 40 mg ONCE ONCE IV PUSH Last administered on 07/29/17at 18:27; Start 07/29/17 at 18:15; Stop 07/29/17 at 18:18; Status DC Gabapentin (Neurontin) 300 mg HS PO Last administered on 07/30/17 19:43; Start 07/29/17 at 21:00 Glucagon (Glucagon Inj) 1 mg UNSCH PRN OTHER HYPOGLYCEMIA-SEE COMMENTS; Start 07/29/17 at 21:00 Heparin Sodium (Porcine) (Heparin Inj) 2,500 units UNSCH PRN IV APTT 25 TO 39; Start 07/30/17 at 00:15 Heparin Sodium/ Dextrose 250 ml @ 10 mls/hr TITRATE PRN IV Coagulation Management Last administered on 07/30/17at 18:44; Start 07/29/17 at 18:15 Insulin Aspart (NovoLOG SUPPLEMENTAL SCALE) 1 ACHS SLIDING SCALE SQ Last administered on 07/31/17 08:00; Start 07/29/17 at 21:00 Lactulose (Lactulose Liq) 30 ml DAILY PRN PO SEVERE CONSITIPATION; Start at 20:00 Levofloxacin (Levaquin) 500 mg Q48H PO ; Start 08/01/17 at 09:00 Lisinopril (Prinivil) 2.5 mg DAILY PO Last administered on 07/31/17 08:25; Start 07/30/17 at 09:00 Magnesium Hydroxide (Milk Of Magnesia Liq) 30 ml Q12H PRN PO Mild constipation ; Start 07/29/17 at 20:00 Methylprednisolone Sodium Succinate (SoluMEDROL INJ) 125 mg ONCE ONCE IV PUSH Last administered on 07/29/17 17:30; Start 07/29/17 at 17:00; Stop 07/29/17 at 17:02; Status DC Metoprolol Tartrate (Lopressor Inj) 5 mg Q6H PRN IV PUSH HR >110 Last administered on 07/31/17 05:31; Start 07/30/17 at 09:00 Metoprolol Tartrate (Lopressor) 25 mg Q12HR PO Last administered on 07/31/17 08:26; Start 07/30/17 at 09:00 Miscellaneous Information Patient in critical care unit? Ass... Q361D .XX Last administered on 07/30/17 21:30; Start 07/30/17 at 21:30 Morphine Sulfate (Morphine Inj) 2 mg Q30M PRN IV PUSH CHEST PAIN Last administered on 07/31/17 05:32; Start 07/29/17 at 21:15 Naloxone HCl (Narcan Inj) 0.4 mg UNSCH PRN IV PUSH SEE LABEL COMMENTS; Start at 20:00 Nitroglycerin (Nitroglycerin 2% Oint) 1 inch ONCE ONCE TOP Last administered on 07/29/17at 17:30; Start 07/29/17 at 17:15; Stop 07/30/17 at 08:16; Status DC Nitroglycerin (Nitrostat Sl) 0.4 mg Q5M PRN SL CHEST PAIN Last administered on 07/30/17at 18:47; Start 07/29/17 at 21:15 Ondansetron HCl (Zofran Inj) 4 mg Q6H PRN IVP NAUSEA OR VOMITING Last administered on 07/31/17 05:34; Start 07/29/17 at 20:00 Pantoprazole Sodium (Protonix) 40 mg DAILY PO Last administered on 07/31/17 08 :26; Start 07/30/17 at 18:00 Prednisone (Deltasone) 40 mg DAILY PO Last administered on 07/31/17 08:26; Start 07/30/17 at 09:30; Stop 08/04/17 at 09:29 Senna/Docusate Sodium (Neyda-Colace) 1 tab BID PO Last administered on 19:43; Start 07/29/17 at 21:00 Sennosides (Senokot) 17.2 mg Q12H PRN PO Moderate constipation; Start 07/29/17 at 20:00 Sodium Chloride (NS Flush) 2 ml BID IV FLUSH Last administered on 07/31/17 08: 27; Start 07/29/17 at 21:00 Urinary Catheter: No Vascular Central Line Catheter: No A/P Assessment and Plan Patient is a 71-year-old female with past medical history of CAD s/p CABG, PVD, DM, HTN, COPD brought to the ED via [facility] after she developed sxs of severe chest pain and shortness of breath. In he ED patient was found to be in A. fib with RVR, elevated troponin of 0.39 with heart rate ranging from 110--160s and oxygen saturations in the low 90s. Patient admitted for management of NSTEMI and respiratory distress. Troponin trended up to 2.18 on morning of 07/30. Cardiology consulted, anticipate cath but patient has MARSHALL thus deferring cath at this time, heparin gtt and a fib management continuing at this time. Discharge Planning SDW Dr. King, DW Dr. Sun Problem List: (1) NSTEMI (non-ST elevated myocardial infarction) ICD Codes: I21.4 - Non-ST elevation (NSTEMI) myocardial infarction Status: Acute Plan: EKG: Atrial fib with RVR troponin elevated at 0.39 -> 2.18 --> 1.76 In the ED started on heparin drip, given Cardizem 10 mg IV1, Lasix 40mg IV x1, morphine 4mg x1, nitroglycerin x1, solumedrol 125mg IV x1, duoneb x3. Bipap transitioned to NC in ED Placed on telemetry Imaging: CTA-No pulmonary embolus. Bibasilar areas of consolidation or atelectasis BNP of 493, no hx of CHF. Echocardiogram pending Cardiology consulted - will await improvement in renal function prior to proceeding with heart cath Continuing Heparin drip protocol Starting ASA 325mg po daily Lipitor 40mg po HS Cardizem for atrial fibrillation (2) Atrial fibrillation with RVR ICD Codes: I48.91 - Unspecified atrial fibrillation Plan: On admission patient found to be in A. fib with RVR on EKG Unclear where this this is new onset although patient stated that she has palpitation "all the time". Patient not on warfarin or any other rhythm alternating agent. Patient asymptomatic, with HR ranging 110-160 on admission Patient received 1 dose of Cardizem 10 mg IV in ED Telemetry Will continue to monitor 07/30: Metoprolol Tartrate 25mg po BID, Metoprolol Tartrate 5mg IV push PRN for HR >110 07/31: HR 130s this AM. Cardizem 15mg IV x 1 then cardizem PO 240mg daily per cardiology (3) COPD (chronic obstructive pulmonary disease) ICD Codes: J44.9 - Chronic obstructive pulmonary disease, unspecified Status: Chronic Plan: Patient given solumedrol and 3 duoneb treatments in the ED Respiratory status improved but still requiring NC With CT findings showing bibasilar consolidation and increase oxygen demand, will treat for COPD exacerbation Levaquin 750mg once, 500mg [id number] (due to creatinine clearance less than 30) for 5 days (started 07/30) Prednisone 50mg daily for 5 days Duonebs, Albuterol PRN (4) Diabetes ICD Codes: E11.9 - Type 2 diabetes mellitus without complications Plan: Home metformin medication held Placed on SSI low dose hypoglycemia protocol monitor AccuChecks (5) Hypertension ICD Codes: I10 - Essential (primary) hypertension Status: Chronic Plan: Borderline hypotensive since admission Lisinopril 2.5mg PO daily (decrease from home dose of 10mg) Holding home Amlodipine for now Metoprolol 25mg PO BID started 07/30 Cardizem 240mg PO daily started 07/31 (6) Chronic kidney disease (CKD) ICD Codes: N18.9 - Chronic kidney disease, unspecified Plan: BUN- 26/Cr- 1.91, slightly worse today - received contrast with CT scan in ED Avoid nephrotoxic agents Will continue to trend daily - will need improvement prior to heart cath Careful PO hydration given CHF (7) Nutrition, metabolism, and development symptoms ICD Codes: R63.8 - Other symptoms and signs concerning food and fluid intake Plan: Fluids: careful hydration given CHF, PO Electrolytes: replete as needed Nutrition: Diabetic diet, pt will need to be NPO except meds the evening before cath DVT ppx: hepatin ggt Problem Qualifiers (1) Diabetes: (2) Chronic kidney disease (CKD): Qualified Codes: N18.9 - Chronic kidney disease, unspecified Kylah Carter MD Jul 31, 2017 10:35
--- NOTE | 2017-07-31 10:59 | PD.CARD.PN ---
Subjective Subjective Remarks Intermittent chest pain Objective Medications Current Medications Medications (Trade) Dose Ordered Sig/Hilda Route Start Time Stop Time Status Last Admin (Heparin Inj) 5,000 units UNSCH PRN IV 07/30/17 00:15 (Heparin Inj) 2,500 units UNSCH PRN IV 07/30/17 00:15 Heparin Sodium/ Dextrose 250 ml @ 10 mls/hr TITRATE PRN IV 07/29/17 18:15 07/30/17 18:44 (NS Flush) 2 ml UNSCH PRN IV FLUSH 07/29/17 20:00 07/30/17 19:43 (NS Flush) 2 ml BID IV FLUSH 07/29/17 21:00 07/31/17 08:27 (Zofran Inj) 4 mg Q6H PRN IVP 07/29/17 20:00 07/31/17 05:34 (Narcan Inj) 0.4 mg UNSCH PRN IV PUSH 07/29/17 20:00 (Neyda-Colace) 1 tab BID PO 07/29/17 21:00 07/30/17 19:43 (Milk Of Magnesia Liq) 30 ml Q12H PRN PO 07/29/17 20:00 (Senokot) 17.2 mg Q12H PRN PO 07/29/17 20:00 (Dulcolax Supp) 10 mg DAILY PRN RECTAL 07/29/17 20:00 (Lactulose Liq) 30 ml DAILY PRN PO 07/29/17 20:00 (Ecotrin Ec) 325 mg DAILY PO 07/30/17 09:00 07/31/17 08:26 (Neurontin) 300 mg HS PO 07/29/17 21:00 07/30/17 19:43 (D50w (Vial) Inj) 50 ml UNSCH PRN IV PUSH 07/29/17 21:00 (Glucagon Inj) 1 mg UNSCH PRN OTHER 07/29/17 21:00 (NovoLOG SUPPLEMENTAL SCALE) 1 ACHS SLIDING SCALE SQ 07/29/17 21:00 07/31/17 08:00 (Morphine Inj) 2 mg Q30M PRN IV PUSH 07/29/17 21:15 07/31/17 05:32 (Nitrostat Sl) 0.4 mg Q5M PRN SL 07/29/17 21:15 07/30/17 18:47 (Duoneb Neb) 1 ampule Q6HR NEB PRN NEB 07/29/17 22:15 (Prinivil) 2.5 mg DAILY PO 07/30/17 09:00 07/31/17 08:25 (Lopressor) 25 mg Q12HR PO 07/30/17 09:00 07/31/17 08:26 (Lipitor) 40 mg HS PO 07/30/17 21:00 07/30/17 19:43 (Lopressor Inj) 5 mg Q6H PRN IV PUSH 07/30/17 09:00 07/31/17 05:31 (Deltasone) 40 mg DAILY PO 07/30/17 09:30 08/04/17 09:29 07/31/17 08:26 (Duoneb Neb) 1 ampule Q6HR NEB INH 07/30/17 10:00 07/31/17 07:51 (Albuterol Neb) 2.5 mg Q2HR NEB PRN INH 07/30/17 09:30 (Levaquin) 500 mg Q48H PO 08/01/17 09:00 (Protonix) 40 mg DAILY PO 07/30/17 18:00 07/31/17 08:26 Miscellaneous Information Patient in critical care unit? Ass... Q361D .XX 07/30/17 21:30 07/30/17 21:30 (Chlorhexidine 2% Cloth) 3 pack DAILY@04 TOPICAL 07/31/17 04:00 08/04/17 04:01 07/31/17 04:00 (Chlorhexidine 2% Cloth) 3 pack UNSCH PRN TOPICAL 07/30/17 21:30 08/04/17 21:15 (Cardizem Cd) 240 mg DAILY PO 07/31/17 11:00 UNV Vital Signs / I&O Vital Signs Date Time Temp Pulse Resp B/P (MAP) Pulse Ox O2 Delivery O2 Flow Rate FiO2 07/31/17 10:00 122 07/31/17 08:00 96.1 110 17 109/67 (81) 96 07/31/17 08:00 110 07/31/17 07:53 93 Nasal Cannula 3.00 07/31/17 07:00 92 Nasal Cannula 4.00 07/31/17 06:00 86 07/31/17 04:00 98.0 110 12 84/62 (69) 94 07/31/17 04:00 104 07/31/17 03:00 107 20 92/68 (76) 93 07/31/17 02:20 89 Nasal Cannula 4.00 07/31/17 02:00 115 15 99/64 (76) 90 07/31/17 02:00 115 07/31/17 01:00 113 12 101/70 (80) 89 07/31/17 01:00 113 12 101/70 (80) 89 07/31/17 00:01 97.5 120 12 105/72 (83) 90 07/31/17 00:00 93 Nasal Cannula 3.00 07/31/17 00:00 129 07/30/17 23:00 125 12 96/62 (73) 93 07/30/17 22:00 118 15 102/67 (79) 93 07/30/17 22:00 130 07/30/17 21:00 96 16 99/61 (74) 94 07/30/17 20:59 93 Nasal Cannula 3.00 07/30/17 20:00 92 Nasal Cannula 3.00 07/30/17 20:00 97.5 121 16 101/68 (79) 92 07/30/17 20:00 106 07/30/17 19:00 126 07/30/17 18:52 22 07/30/17 18:00 124 07/30/17 16:00 96.1 121 18 102/62 (75) 97 07/30/17 16:00 121 07/30/17 15:00 124 07/30/17 14:00 122 07/30/17 12:00 96.5 120 28 100/59 (73) 95 07/30/17 12:00 120 I/O 07/30/17 07/30/17 07/30/17 07/31/17 07/31/17 07/31/17 07:00 15:00 23:00 07:00 15:00 23:00 Intake Total 720 ml 1031 ml Output Total 525 ml 500 ml Balance 195 ml 531 ml Intake Oral 720 ml 700 ml IV Total 331 ml Output Urine Total 525 ml 500 ml # Bowel Movements 0 Physical Exam Obese, anxious Chest: Wheezing B/L CV S1S2 irr irr tachy Tele AF RVR Abd soft Ext poor LE pulses, intact radial pulses Laboratory Laboratory Tests Test 07/30/17 12:22 07/31/17 04:25 Activated Partial Thromboplast Time 40.8 SEC 44.5 SEC White Blood Count 14.1 TH/MM3 Red Blood Count 3.66 MIL/MM3 Hemoglobin 11.7 GM/DL Hematocrit 35.6 % Mean Corpuscular Volume 97.1 FL Mean Corpuscular Hemoglobin 32.0 PG Mean Corpuscular Hemoglobin Concent 33.0 % Red Cell Distribution Width 13.2 % Platelet Count 289 TH/MM3 Mean Platelet Volume 9.2 FL Neutrophils (%) (Auto) 87.5 % Lymphocytes (%) (Auto) 7.0 % Monocytes (%) (Auto) 5.5 % Eosinophils (%) (Auto) 0.0 % Basophils (%) (Auto) 0.0 % Neutrophils # (Auto) 12.3 TH/MM3 Lymphocytes # (Auto) 1.0 TH/MM3 Monocytes # (Auto) 0.8 TH/MM3 Eosinophils # (Auto) 0.0 TH/MM3 Basophils # (Auto) 0.0 TH/MM3 CBC Comment DIFF FINAL Differential Comment Blood Urea Nitrogen 41 MG/DL Creatinine 1.91 MG/DL Random Glucose 153 MG/DL Calcium Level 8.4 MG/DL Sodium Level 133 MEQ/L Potassium Level 4.8 MEQ/L Chloride Level 97 MEQ/L Carbon Dioxide Level 24.7 MEQ/L Anion Gap 11 MEQ/L Estimat Glomerular Filtration Rate 26 ML/MIN Troponin I 1.76 NG/ML Imaging Last 24 hours Impressions Chest X-Ray 07/31/17 0600 Signed Impressions: Service Date/Time: Monday, July 31, 2017 04:41 - CONCLUSION: Decreasing bibasilar consolidation. Jhony Cheung MD Assessment and Plan Problem List: (1) Tobacco use disorder ICD Codes: F17.200 - Nicotine dependence, unspecified, uncomplicated Plan: counseled cessation (2) Noncompliance ICD Codes: Z91.19 - Patient's noncompliance with other medical treatment and regimen Plan: Has continued to smoke despite CABG, COPD and multiple vascular procedures (3) NSTEMI (non-ST elevated myocardial infarction) ICD Codes: I21.4 - Non-ST elevation (NSTEMI) myocardial infarction Status: Acute (4) Chronic kidney disease (CKD) ICD Codes: N18.9 - Chronic kidney disease, unspecified Plan: Creatinine is worse from yesterday - unsafe to do heart cath (5) Atrial fibrillation with RVR ICD Codes: I48.91 - Unspecified atrial fibrillation Plan: add diltiazem CD 240mg daily. 15 mg IV now to bring HR down Assessment and Plan Prognosis guarded/ complicated patient. Known severe vascular disease. Problem Qualifiers (1) Chronic kidney disease (CKD): Qualified Codes: N18.9 - Chronic kidney disease, unspecified Marco Vaca MD Jul 31, 2017 10:59
[2017-07-31] MEDS ORDERED: DILTIAZEM HCL 50 MG/10 ML VIAL IV ONE (11:00)
[2017-07-31] MEDS: DILTIAZEM-CD 240 MG CAP ER PO SCH (11:07)
--- NOTE | 2017-07-31 11:35 | EKG ---
Date Performed: 07/30/2017 Time Performed: 05:50:52 PTAGE: 71 years EKG: ATRIAL FIBRILLATION WITH RAPID VENTRICULAR RESPONSE NONSPECIFIC ST & T-WAVE ABNORMALITY ABN ORMAL RHYTHM ECG PREVIOUS TRACING : 07/29/2017 23.33 Since the previous tracing, no significant change noted DOCTOR: Karel Carter Interpretating Date/Time 07/31/2017 11:31:00
--- NOTE | 2017-07-31 11:35 | EKG ---
Date Performed: 07/29/2017 Time Performed: 23:33:27 PTAGE: 71 years EKG: ATRIAL FIBRILLATION WITH RAPID VENTRICULAR RESPONSE NONSPECIFIC ST & T-WAVE ABNORMALITY ABN ORMAL RHYTHM ECG PREVIOUS TRACING : 07/29/2017 19.54 Since the previous tracing, no significant change noted DOCTOR: Karel Carter Interpretating Date/Time 07/31/2017 11:30:50
[2017-07-31] MEDS: NITROGLYCERIN 0.4 MG SL 25 TABS/BTL SL PRN ×2 (17:43→18:05)
[2017-07-31] MEDS: ATORVASTATIN 40 MG TAB PO SCH (19:55)
[2017-07-31] MEDS: GABAPENTIN 300 MG CAP PO SCH (19:59)
[2017-07-31] MEDS: HEPARIN-D5W 25,000 U/250 ML 250 ML IV PRN (21:26)
[2017-08-01] VITALS (14 sets, daily range): BP systolic 99–116; BP diastolic 56–76; PULSE 64–119; RESP 10–27; TEMP 96.6–98.1; O2SAT 88–94
[2017-08-01] MEDS: METOPROLOL TARTRATE 5 MG/5 ML VIAL IV PUSH PRN (00:05)
[2017-08-01 03:35] LABS: AUTOMATED NEUTROPHIL # 9.6 TH/MM3 (1.8-7.7); BASOPHIL % 0.1 % (0.0-2.0); HEMOGLOBIN 11.8 GM/DL (11.6-15.3); LYMPHOCYTE # 0.9 TH/MM3 (1.0-4.8); MEAN CELL VOLUME 97.2 FL (80.0-100.0); MEAN CORPUSCULAR HEMOGLOBIN 32.8 PG (27.0-34.0); MEAN CORPUSCULAR HGB CONC 33.7 % (32.0-36.0); MONO % 3.4 % (0.0-8.0); MONOCYTE # 0.4 TH/MM3 (0-0.9); NEUT % 88.5 % (16.0-70.0); PLATELET COUNT 266 TH/MM3 (150-450); RED CELL DISTRIBUTION WIDTH 13.2 % (11.6-17.2); WHITE BLOOD COUNT 10.9 TH/MM3 (4.0-11.0)
[2017-08-01 03:54] LABS: BICARBONATE 23.4 MEQ/L (21.0-32.0); CALCIUM 8.1 MG/DL (8.5-10.1); CREATININE 1.95 MG/DL (0.50-1.00)
[2017-08-01] MEDS: CHLORHEXIDINE GLUCONATE 2 % 1 PACK (2 CLOTHS)(taper/protocol) TOPICAL SCH (04:00)
[2017-08-01] MEDS: RESP: ALBUTEROL 2.5 MG/IPRATROPIUM 0.5 MG NEB (SCH) INH ×4 (04:29→21:28)
[2017-08-01] MEDS: INSULIN ASPART SUPPLEMENTAL SCALE SQ SCH ×4 (07:44→20:39)
[2017-08-01] MEDS: DILTIAZEM-CD 240 MG CAP ER PO SCH (07:45)
[2017-08-01] MEDS: SODIUM CHLORIDE 0.9% FLUSH 10 ML FLUSH IV FLUSH SCH ×2 (07:45→20:29)
[2017-08-01] MEDS: LEVOFLOXACIN 500 MG TAB PO SCH (07:45)
[2017-08-01] MEDS: ASPIRIN EC 325 MG TABEC PO SCH (07:46)
[2017-08-01] MEDS: predniSONE 20 MG TAB PO SCH (07:46)
[2017-08-01] MEDS: DOCUSATE SODIUM 50 MG/SENNA 8.6 MG TAB PO SCH ×2 (07:46→20:29)
[2017-08-01] MEDS: PANTOPRAZOLE SOD 40 MG DELAYED RELEASE TAB PO SCH (07:46)
[2017-08-01] MEDS: METOPROLOL TARTRATE 25 MG TAB PO SCH ×2 (07:46→20:28)
[2017-08-01] MEDS: LISINOPRIL 5 MG TAB PO SCH (09:00)
--- NOTE | 2017-08-01 10:11 | HHI.FPPN ---
Subjective Remarks No acute events overnight. Patient states that her chest pain is mild compared to admission. Yesterday she reported decreased urinary output, somewhat improved today. Her only complaint is a headache that she has had over the last couple of days. Denies shortness of breath, nausea or vomiting. Objective Vitals Vital Signs Date Time Temp Pulse Resp B/P (MAP) Pulse Ox O2 Delivery O2 Flow Rate FiO2 08/01/17 10:06 92 Nasal Cannula 3.00 08/01/17 10:00 68 08/01/17 08:00 76 08/01/17 08:00 97.4 76 27 116/56 (76) 90 08/01/17 07:00 92 Nasal Cannula 4.00 08/01/17 06:00 74 08/01/17 04:00 97.6 86 15 106/63 (77) 92 08/01/17 04:00 86 08/01/17 02:00 85 08/01/17 00:00 119 08/01/17 00:00 97.8 119 10 109/72 (84) 92 07/31/17 22:00 112 07/31/17 20:38 94 Nasal Cannula 4.00 07/31/17 20:00 99 07/31/17 20:00 97.6 99 25 112/76 (88) 93 07/31/17 19:00 92 Nasal Cannula 4.00 07/31/17 18:19 24 07/31/17 18:00 102 07/31/17 16:00 96.1 115 14 93/63 (73) 94 07/31/17 16:00 115 07/31/17 14:00 85 07/31/17 12:00 97.4 83 9 110/69 (83) 91 07/31/17 12:00 83 I/O 07/31/17 07/31/17 07/31/17 08/01/17 08/01/17 08/01/17 07:00 15:00 23:00 07:00 15:00 23:00 Intake Total 1031 ml 730 ml 342 ml Output Total 500 ml 525 ml 500 ml Balance 531 ml 205 ml -158 ml Intake Oral 700 ml 480 ml 240 ml IV Total 331 ml 250 ml 102 ml Output Urine Total 500 ml 525 ml 500 ml # Voids 2 # Bowel Movements 0 0 Result Diagram: 08/01/17 0256 08/01/17 0256 Objective Remarks GENERAL: This is a well-nourished, well-developed patient, in no apparent distress. NC in place and sitting upright in bed comfortably. Speaking in full sentences SKIN: No rashes, ecchymoses or lesions. Cool and dry. HEAD: Atraumatic. Normocephalic. EYES: Pupils equal round and reactive. Extraocular motions intact. No scleral icterus. No injection or drainage. ENT: Nose without bleeding or drainage. CARDIOVASCULAR: Irregular rate and rhythm without murmurs. RESPIRATORY: Clear to auscultation. No wheezes, rales, or rhonchi. GASTROINTESTINAL: Obese abdomen, soft, non-tender, nondistended. No hepato- splenomegaly, or palpable masses. No guarding. MUSCULOSKELETAL: Extremities without clubbing or cyanosis, +2 pedal edema noted BL -unchanged from prior exam. No joint tenderness, effusion, or edema noted. No calf tenderness. +2 DP pulses BL. NEUROLOGICAL: Awake and alert. Cranial nerves II through XII intact. Motor and sensory grossly within normal limits. Five out of 5 muscle strength in all muscle groups. Normal speech. A/P Assessment and Plan Patient is a 71-year-old female with past medical history of CAD s/p CABG, PVD, DM, HTN, COPD brought to the ED via [facility] after she developed sxs of severe chest pain and shortness of breath. In he ED patient was found to be in A. fib with RVR, elevated troponin of 0.39 with heart rate ranging from 110--160s and oxygen saturations in the low 90s. Patient admitted for management of NSTEMI and respiratory distress. Troponin trended up to 2.18 on morning of 07/30. Cardiology consulted, anticipate cath but patient has MARSHALL thus deferring cath at this time, heparin gtt and a fib management continuing at this time. Consulting nephrology on 08/01 as patient's creatinine remains elevated and reported decreased urinary output on 07/31. Renal ultrasound pending. Discharge Planning Patient needs heart cath prior to discharge, will need improvement in renal function prior to that. Problem List: (1) NSTEMI (non-ST elevated myocardial infarction) ICD Codes: I21.4 - Non-ST elevation (NSTEMI) myocardial infarction Status: Acute Plan: EKG: Atrial fib with RVR troponin elevated at 0.39 -> 2.18 --> 1.76 In the ED started on heparin drip, given Cardizem 10 mg IV1, Lasix 40mg IV x1, morphine 4mg x1, nitroglycerin x1, solumedrol 125mg IV x1, duoneb x3. Bipap transitioned to NC in ED Placed on telemetry Imaging: CTA-No pulmonary embolus. Bibasilar areas of consolidation or atelectasis BNP of 493, no hx of CHF. Echocardiogram pending Cardiology consulted - will await improvement in renal function prior to proceeding with heart cath Continuing Heparin drip protocol Starting ASA 325mg po daily Lipitor 40mg po HS Cardizem for atrial fibrillation PT assessment stating patient will need home health with home PT at discharge (2) Atrial fibrillation with RVR ICD Codes: I48.91 - Unspecified atrial fibrillation Plan: On admission patient found to be in A. fib with RVR on EKG Unclear where this this is new onset although patient stated that she has palpitation "all the time". Patient not on warfarin or any other rhythm alternating agent. Patient asymptomatic, with HR ranging 110-160 on admission Patient received 1 dose of Cardizem 10 mg IV in ED Telemetry Will continue to monitor 07/30: Metoprolol Tartrate 25mg po BID, Metoprolol Tartrate 5mg IV push PRN for HR >110 07/31: HR 130s this AM. Cardizem 15mg IV x 1 then cardizem PO 240mg daily per cardiology (3) COPD (chronic obstructive pulmonary disease) ICD Codes: J44.9 - Chronic obstructive pulmonary disease, unspecified Status: Chronic Plan: Patient given solumedrol and 3 duoneb treatments in the ED Respiratory status improved but still requiring NC With CT findings showing bibasilar consolidation and increase oxygen demand, will treat for COPD exacerbation Levaquin 750mg once, 500mg [id number] (due to creatinine clearance less than 30) for 5 days (started 07/30) Prednisone 50mg daily for 5 days Duonebs, Albuterol PRN (4) Diabetes ICD Codes: E11.9 - Type 2 diabetes mellitus without complications Plan: Home metformin medication held Placed on SSI low dose hypoglycemia protocol monitor AccuChecks (5) Hypertension ICD Codes: I10 - Essential (primary) hypertension Status: Chronic Plan: Borderline hypotensive since admission Lisinopril 2.5mg PO daily (decrease from home dose of 10mg) Holding home Amlodipine for now Metoprolol 25mg PO BID started 07/30 Cardizem 240mg PO daily started 07/31 (6) Chronic kidney disease (CKD) ICD Codes: N18.9 - Chronic kidney disease, unspecified Plan: BUN- 45/Cr- 1.95, slightly worse today - received contrast with CT scan in ED Avoid nephrotoxic agents Will continue to trend daily - will need improvement prior to heart cath Careful PO hydration given CHF Consulting nephrology as patient will need improvement in renal function prior to heart cath Renal ultrasound ordered as patient only reported urinating twice today on 07/31 and stated she was having difficulty urinating (7) Nutrition, metabolism, and development symptoms ICD Codes: R63.8 - Other symptoms and signs concerning food and fluid intake Plan: Fluids: careful hydration given CHF, PO Electrolytes: replete as needed Nutrition: Diabetic diet, pt will need to be NPO except meds the evening before cath DVT ppx: hepatin ggt Problem Qualifiers (1) Diabetes: (2) Chronic kidney disease (CKD): Qualified Codes: N18.9 - Chronic kidney disease, unspecified Agustin King MD R1 Aug 01, 2017 10:11
[2017-08-01] MEDS: ACETAMINOPHEN 325 MG TAB PO PRN (11:46)
--- NOTE | 2017-08-01 12:11 | RADRPT ---
EXAM DATE/TIME: 08/01/2017 11:15 [facility] COMPARISON: No previous studies available for comparison. INDICATIONS : Increased BUN/Creatinine. MEDICAL HISTORY : Hypercholesterolemia. Chronic obstructive pulmonary disease. Hypertension. Diabetes. Coronary artery disease. SURGICAL HISTORY : Hysterectomy. CABG. Spinal fusion. Right kne surgery. Stents in both legs. Cataract surgery. ENCOUNTER: Initial ACUITY: 1 day PAIN SCORE: 0/10 LOCATION: Bilateral flank MEASUREMENTS: RIGHT KIDNEY: 9.2 x 4.3 x 4.3 cm LEFT KIDNEY: 9.8 x 5.3 x 1.2 cm FINDINGS: RIGHT KIDNEY: The right kidney is small and atrophic in appearance with cortical thinning and increased echogenicit y. There is no focal mass or hydronephrosis. LEFT KIDNEY: The left kidney is small and atrophic in appearance with cortical thinning and increased echogenicity . There is no focal mass or hydronephrosis. BLADDER: Within normal limits given the degree of distension. CONCLUSION: 1. No hydronephrosis. 2. The kidneys are small and atrophic with increased echogenicity characteristic of medical renal dis ease. Corwin Shine MD on August 01, 2017 at 12:08 Board Certified Radiologist. This report was verified electronically.
--- NOTE | 2017-08-01 13:21 | PD.CARD.PN ---
Subjective Subjective Remarks Intermittent left-side chest pain but not nearly as severe as she had on admit Objective Medications Current Medications Medications (Trade) Dose Ordered Sig/Hilda Route Start Time Stop Time Status Last Admin (Heparin Inj) 5,000 units UNSCH PRN IV 07/30/17 00:15 07/31/17 21:26 (Heparin Inj) 2,500 units UNSCH PRN IV 07/30/17 00:15 Heparin Sodium/ Dextrose 250 ml @ 10 mls/hr TITRATE PRN IV 07/29/17 18:15 07/31/17 21:26 (NS Flush) 2 ml UNSCH PRN IV FLUSH 07/29/17 20:00 07/30/17 19:43 (NS Flush) 2 ml BID IV FLUSH 07/29/17 21:00 08/01/17 07:45 (Zofran Inj) 4 mg Q6H PRN IVP 07/29/17 20:00 07/31/17 05:34 (Narcan Inj) 0.4 mg UNSCH PRN IV PUSH 07/29/17 20:00 (Neyda-Colace) 1 tab BID PO 07/29/17 21:00 08/01/17 07:46 (Milk Of Magnesia Liq) 30 ml Q12H PRN PO 07/29/17 20:00 (Senokot) 17.2 mg Q12H PRN PO 07/29/17 20:00 (Dulcolax Supp) 10 mg DAILY PRN RECTAL 07/29/17 20:00 (Lactulose Liq) 30 ml DAILY PRN PO 07/29/17 20:00 (Ecotrin Ec) 325 mg DAILY PO 07/30/17 09:00 08/01/17 07:46 (Neurontin) 300 mg HS PO 07/29/17 21:00 07/30/17 19:43 (D50w (Vial) Inj) 50 ml UNSCH PRN IV PUSH 07/29/17 21:00 (Glucagon Inj) 1 mg UNSCH PRN OTHER 07/29/17 21:00 (NovoLOG SUPPLEMENTAL SCALE) 1 ACHS SLIDING SCALE SQ 07/29/17 21:00 08/01/17 11:51 (Morphine Inj) 2 mg Q30M PRN IV PUSH 07/29/17 21:15 07/31/17 05:32 (Nitrostat Sl) 0.4 mg Q5M PRN SL 07/29/17 21:15 07/31/17 18:05 (Duoneb Neb) 1 ampule Q6HR NEB PRN NEB 07/29/17 22:15 (Lopressor) 25 mg Q12HR PO 07/30/17 09:00 08/01/17 07:46 (Lipitor) 40 mg HS PO 07/30/17 21:00 07/31/17 19:55 (Lopressor Inj) 5 mg Q6H PRN IV PUSH 07/30/17 09:00 08/01/17 00:05 (Deltasone) 40 mg DAILY PO 07/30/17 09:30 08/04/17 09:29 08/01/17 07:46 (Duoneb Neb) 1 ampule Q6HR NEB INH 07/30/17 10:00 08/01/17 10:06 (Albuterol Neb) 2.5 mg Q2HR NEB PRN INH 07/30/17 09:30 (Levaquin) 500 mg Q48H PO 08/01/17 09:00 08/01/17 07:45 (Protonix) 40 mg DAILY PO 07/30/17 18:00 08/01/17 07:46 Miscellaneous Information Patient in critical care unit? Ass... [id number] .XX 07/30/17 21:30 07/30/17 21:30 (Chlorhexidine 2% Cloth) 3 pack DAILY@04 TOPICAL 07/31/17 04:00 08/04/17 04:01 07/31/17 04:00 (Chlorhexidine 2% Cloth) 3 pack UNSCH PRN TOPICAL 07/30/17 21:30 08/04/17 21:15 (Cardizem Cd) 240 mg DAILY PO 07/31/17 11:00 08/01/17 07:45 (Tylenol) 650 mg Q6H PRN PO 08/01/17 11:30 08/01/17 11:46 (Nitroglycerin 2% Oint) 0.75 inch Q6HR TOPICAL 08/01/17 13:15 UNV Vital Signs / I&O Vital Signs Date Time Temp Pulse Resp B/P (MAP) Pulse Ox O2 Delivery O2 Flow Rate FiO2 08/01/17 10:06 92 Nasal Cannula 3.00 08/01/17 10:00 68 08/01/17 08:00 76 08/01/17 08:00 97.4 76 27 116/56 (76) 90 08/01/17 07:00 92 Nasal Cannula 4.00 08/01/17 06:00 74 08/01/17 04:00 97.6 86 15 106/63 (77) 92 08/01/17 04:00 86 08/01/17 02:00 85 08/01/17 00:00 119 08/01/17 00:00 97.8 119 10 109/72 (84) 92 07/31/17 22:00 112 07/31/17 20:38 94 Nasal Cannula 4.00 07/31/17 20:00 99 07/31/17 20:00 97.6 99 25 112/76 (88) 93 07/31/17 19:00 92 Nasal Cannula 4.00 07/31/17 18:19 24 07/31/17 18:00 102 07/31/17 16:00 96.1 115 14 93/63 (73) 94 07/31/17 16:00 115 07/31/17 14:00 85 I/O 07/31/17 07/31/17 07/31/17 08/01/17 08/01/17 08/01/17 07:00 15:00 23:00 07:00 15:00 23:00 Intake Total 1031 ml 730 ml 342 ml Output Total 500 ml 525 ml 500 ml Balance 531 ml 205 ml -158 ml Intake Oral 700 ml 480 ml 240 ml IV Total 331 ml 250 ml 102 ml Output Urine Total 500 ml 525 ml 500 ml # Voids 2 # Bowel Movements 0 0 Physical Exam Obese, anxious Chest: no wheezing/ clear CV S1S2 irr irr regular rate Tele AF cVR Abd soft Ext no edema. I can feel a right femoral pulse. Radial pulses are weak Laboratory Laboratory Tests Test 07/31/17 18:07 08/01/17 02:56 08/01/17 07:21 08/01/17 10:19 Activated Partial Thromboplast Time 20.7 SEC 48.4 SEC 51.1 SEC 49.7 SEC White Blood Count 10.9 TH/MM3 Red Blood Count 3.60 MIL/MM3 Hemoglobin 11.8 GM/DL Hematocrit 35.0 % Mean Corpuscular Volume 97.2 FL Mean Corpuscular Hemoglobin 32.8 PG Mean Corpuscular Hemoglobin Concent 33.7 % Red Cell Distribution Width 13.2 % Platelet Count 266 TH/MM3 Mean Platelet Volume 9.0 FL Neutrophils (%) (Auto) 88.5 % Lymphocytes (%) (Auto) 8.0 % Monocytes (%) (Auto) 3.4 % Eosinophils (%) (Auto) 0.0 % Basophils (%) (Auto) 0.1 % Neutrophils # (Auto) 9.6 TH/MM3 Lymphocytes # (Auto) 0.9 TH/MM3 Monocytes # (Auto) 0.4 TH/MM3 Eosinophils # (Auto) 0.0 TH/MM3 Basophils # (Auto) 0.0 TH/MM3 CBC Comment DIFF FINAL Differential Comment Blood Urea Nitrogen 45 MG/DL Creatinine 1.95 MG/DL Random Glucose 155 MG/DL Calcium Level 8.1 MG/DL Sodium Level 131 MEQ/L Potassium Level 4.8 MEQ/L Chloride Level 98 MEQ/L Carbon Dioxide Level 23.4 MEQ/L Anion Gap 10 MEQ/L Estimat Glomerular Filtration Rate 25 ML/MIN Imaging Last 24 hours Impressions Renal Ultrasound 08/01/17 0000 Signed Impressions: Service Date/Time: Tuesday, August 01, 2017 11:15 - CONCLUSION: 1. No hydronephrosis. 2. The kidneys are small and atrophic with increased echogenicity characteristic of medical renal disease. Corwin Shine MD Assessment and Plan Problem List: (1) Tobacco use disorder ICD Codes: F17.200 - Nicotine dependence, unspecified, uncomplicated Plan: she says she has quit as of this admit (2) Noncompliance ICD Codes: Z91.19 - Patient's noncompliance with other medical treatment and regimen (3) NSTEMI (non-ST elevated myocardial infarction) ICD Codes: I21.4 - Non-ST elevation (NSTEMI) myocardial infarction Status: Acute (4) Chronic kidney disease (CKD) ICD Codes: N18.9 - Chronic kidney disease, unspecified Plan: creatinine has gone up slightly (5) Atrial fibrillation with RVR ICD Codes: I48.91 - Unspecified atrial fibrillation Plan: heart rate now controlled better (6) Morbid obesity ICD Codes: E66.01 - Morbid (severe) obesity due to excess calories Assessment and Plan DC lisinopril. Add NTP. Will consider cath if creat comes down. Agree with renal consult Problem Qualifiers (1) Chronic kidney disease (CKD): Qualified Codes: N18.9 - Chronic kidney disease, unspecified Marco Vaca MD Aug 01, 2017 13:21
--- NOTE | 2017-08-01 13:35 | MB ---
cc: Fouzia Lay MD DATE: 08/01/2017 REASON FOR CONSULTATION: Elevated BUN and creatinine, for evaluation. HISTORY OF PRESENT ILLNESS: This is a 71-year-old female with past medical history of hypertension, diabetes mellitus, ischemic heart disease, post coronary artery bypass grafting, chronic obstructive pulmonary disease, diabetes mellitus, peripheral vascular disease, and possible chronic kidney disease, who came to the hospital with atrial fibrillation and rapid ventricular rate. I was called to see the patient because of elevated BUN and creatinine. The patient has a creatinine of 1.59 on admission, which has gone up to 1.9 and now it is stable at 1.9. She also has low sodium. It was normal in the beginning, but now it is 131. Patient has increase in troponin. She was seen by the machine operator hop picker and the impression was possible cardiac ischemia and will need cardiac catheterization once the kidney function is stabilized or better. Patient has a CTA was also done on admission, which shows that she has bibasilar consolidation and no pulmonary embolism. The patient denies any chest pain now, but she had some chest pain when she came in. She has mild shortness of breath. She has no dysuria or hematuria. She has a history of taking nonsteroidal anti-inflammatory drugs and recently she is only taking aspirin 325 mg once a day. PAST MEDICAL HISTORY: Hypertension, diabetes mellitus, ischemic heart disease, chronic obstructive pulmonary disease, peripheral vascular disease, diabetes mellitus, and chronic kidney disease. PAST SURGICAL HISTORY: Coronary artery bypass grafting in 2006, hysterectomy, foot surgery, cataract surgery, lumbar spine surgery, right knee replacement, cardiac catheterization with stent in 2016. REVIEW OF SYSTEMS: Patient has generalized weakness, feeling tired, has mild shortness of breath and occasionally has palpitations. No chest pain now, but she had some chest pain when she came in. Denies any headache or dizziness, no nausea or vomiting. No abdominal pain. No history of diarrhea. No dysuria or hematuria. SOCIAL HISTORY: The patient recently moved to this area. She smokes about 1/2 pack per day, has been smoking 1 pack per day for more than 50 years. There is no history of heavy alcoholism. FAMILY HISTORY: Noncontributory. ALLERGIES: SHE HAS NO KNOWN DRUG ALLERGIES. MEDICATIONS: Currently she is on following medications: 1. Neyda-Colace 1 tablet b.i.d. 2. Aspirin 325 mg once a day. 3. Lisinopril 2.5 mg once a day. 4. Prednisone 40 mg once a day. 5. Protonix 40 mg daily. 6. Cardizem 240 mg once a day. 7. Neurontin 300 mg daily. 8. Lipitor 40 mg at bedtime. 9. DuoNeb nebulizer. 10. Lopressor 25 mg q.12 hours. 11. Levaquin 500 mg q.48 hours. 12. Insulin aspart sliding scale. 13. Zofran as needed. PHYSICAL EXAMINATION: GENERAL: Awake, alert. She is not in acute distress. VITAL SIGNS: Her last blood pressure is 116/56, temperature 97.4, oxygen saturation on 3 liters nasal cannula is 92%. The blood pressure occasionally was in the lower side and the lowest reading we have was 84/62 and this was yesterday cell operation supervisor. HEENT: Pupils are mid constricted. Nonicteric sclerae. Conjunctivae are normal. NECK: Supple. JVD is not elevated. LUNGS: The patient has bilateral good air entry with occasional wheezing. HEART: S1, S2, irregular rhythm. ABDOMEN: Soft, lax, distended, nontender. Bowel sounds positive. EXTREMITIES: There is mild pedal edema. INVESTIGATIONS: WBC count is 10.9, hemoglobin 11.8, platelet count of 266, neutrophils 88.5%. Sodium 131, potassium 4.8, chloride 98, bicarbonate 23.4, BUN 45, creatinine 1.9, glucose 8.1. Troponin I is 1.76. Cholesterol is 148, LDL 86, HDL 51.2. AST, ALT was normal on admission. Total protein is 8.1 with albumin of 3.9. PTT is 49.7. Urinalysis showing trace proteinuria. Urine culture showing 50-100,000 mixed aurora. Ultrasound of the kidney was done which shows both kidneys are smaller in size with no hydronephrosis. There is some atrophy with echogenicity. Chest x-ray was done which shows a decreasing bibasilar consolidation. A CT angiogram was done which shows no pulmonary embolism and showing some consolidation. ASSESSMENT AND PLAN: 1. Chronic kidney disease with some acute worsening. 2. Atrial fibrillation with rapid ventricular rate. 3. Ischemic heart disease with possible acute ischemia. 4. Diabetes mellitus. 5. Hypertension. 6. Increased troponin. The patient has chronic kidney disease with mild proteinuria. 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 The kidneys are a little bit smaller in size. Acute worsening could be from the hypotension or could be related to CT angiogram with contrast. At present, she is nonoliguric. Creatinine is stable. Blood pressure is still on the lower side, but it is better than before. Avoid any nephrotoxins and continue to follow the urine output and the BUN and creatinine. Once the creatinine starts improving, then it will be a better time to do the cardiac catheterization if needed. Thank you for the consultation. I will follow the patient while she is in the hospital. Jessica Lay MD AQJ/BONG , 12:57 PM , 01:34 PM
[2017-08-01] MEDS: HEPARIN-D5W 25,000 U/250 ML 250 ML IV PRN (14:27)
[2017-08-01] MEDS: NITROGLYCERIN 2% OINT 1 GM PACKET TOPICAL SCH ×2 (14:27→17:40)
[2017-08-01] MEDS: GABAPENTIN 300 MG CAP PO SCH (20:28)
[2017-08-01] MEDS: ATORVASTATIN 40 MG TAB PO SCH (20:28)
[2017-08-02] VITALS (13 sets, daily range): BP systolic 97–131; BP diastolic 54–75; PULSE 81–131; RESP 18–29; TEMP 97.6–98.4; O2SAT 86–94
[2017-08-02] MEDS: RESP: ALBUTEROL 2.5 MG/IPRATROPIUM 0.5 MG NEB (SCH) INH ×4 (04:00→21:07)
[2017-08-02] MEDS: CHLORHEXIDINE GLUCONATE 2 % 1 PACK (2 CLOTHS)(taper/protocol) TOPICAL SCH (04:00)
[2017-08-02 05:59] LABS: AUTOMATED NEUTROPHIL # 8.3 TH/MM3 (1.8-7.7); BASOPHIL % 0.2 % (0.0-2.0); HEMATOCRIT 35.2 % (35.0-46.0); HEMOGLOBIN 11.8 GM/DL (11.6-15.3); LYMPH % 14.6 % (9.0-44.0); LYMPHOCYTE # 1.5 TH/MM3 (1.0-4.8); MEAN CELL VOLUME 97.6 FL (80.0-100.0); MEAN CORPUSCULAR HEMOGLOBIN 32.6 PG (27.0-34.0); MEAN CORPUSCULAR HGB CONC 33.4 % (32.0-36.0); MEAN PLATELET VOLUME 9.5 FL (7.0-11.0); MONO % 6.8 % (0.0-8.0); MONOCYTE # 0.7 TH/MM3 (0-0.9); NEUT % 78.4 % (16.0-70.0); PLATELET COUNT 274 TH/MM3 (150-450); RED CELL DISTRIBUTION WIDTH 13.2 % (11.6-17.2); WHITE BLOOD COUNT 10.6 TH/MM3 (4.0-11.0)
[2017-08-02] MEDS: NITROGLYCERIN 2% OINT 1 GM PACKET TOPICAL SCH ×4 (06:12→17:05)
[2017-08-02 06:26] LABS: BICARBONATE 22.6 MEQ/L (21.0-32.0); CALCIUM 8.6 MG/DL (8.5-10.1); CREATININE 1.99 MG/DL (0.50-1.00)
[2017-08-02 06:43] LABS: TROPONIN I 0.78 NG/ML (0.02-0.05)
[2017-08-02] MEDS: METOPROLOL TARTRATE 25 MG TAB PO SCH ×2 (07:35→21:20)
[2017-08-02] MEDS: predniSONE 20 MG TAB PO SCH (07:36)
[2017-08-02] MEDS: ASPIRIN EC 325 MG TABEC PO SCH (07:36)
[2017-08-02] MEDS: SODIUM CHLORIDE 0.9% FLUSH 10 ML FLUSH IV FLUSH SCH ×2 (07:36→21:19)
[2017-08-02] MEDS: DILTIAZEM-CD 240 MG CAP ER PO SCH (07:36)
[2017-08-02] MEDS: INSULIN ASPART SUPPLEMENTAL SCALE SQ SCH ×4 (07:36→22:11)
[2017-08-02] MEDS: DOCUSATE SODIUM 50 MG/SENNA 8.6 MG TAB PO SCH ×2 (07:36→21:20)
[2017-08-02] MEDS: PANTOPRAZOLE SOD 40 MG DELAYED RELEASE TAB PO SCH (07:36)
--- NOTE | 2017-08-02 13:09 | RADRPT ---
EXAM DATE/TIME: 08/02/2017 12:52 [facility] COMPARISON: No previous studies available for comparison. INDICATIONS : Chest pain and shortness of breath. MEDICAL HISTORY : Chronic obstructive pulmonary disease. Diabetes mellitus type II. Hypertension. SURGICAL HISTORY : CABG. ENCOUNTER: Subsequent ACUITY: 3 days PAIN SCORE: 8/10 LOCATION: Bilateral chest FINDINGS: Heart is mildly enlarged. Postsurgical changes from previous CABG are noted. Generalized interstitial vascular prominence is noted. Small bilateral effusions are identified. Mild right basilar airspace disease is noted. CONCLUSION: 1. Cardiomegaly with mild CHF 2. Small bilateral effusions 3. Status post CABG Forrest Killian MD on August 02, 2017 at 13:06 Board Certified Radiologist. This report was verified electronically.
--- NOTE | 2017-08-02 15:54 | PD.CARD.PN ---
Subjective Subjective Remarks c/o constipation. Has been at bedrest Objective Medications Current Medications Medications (Trade) Dose Ordered Sig/Hilda Route Start Time Stop Time Status Last Admin (Heparin Inj) 5,000 units UNSCH PRN IV 07/30/17 00:15 07/31/17 21:26 (Heparin Inj) 2,500 units UNSCH PRN IV 07/30/17 00:15 Heparin Sodium/ Dextrose 250 ml @ 10 mls/hr TITRATE PRN IV 07/29/17 18:15 08/01/17 14:27 (NS Flush) 2 ml UNSCH PRN IV FLUSH 07/29/17 20:00 07/30/17 19:43 (NS Flush) 2 ml BID IV FLUSH 07/29/17 21:00 08/02/17 07:36 (Zofran Inj) 4 mg Q6H PRN IVP 07/29/17 20:00 07/31/17 05:34 (Narcan Inj) 0.4 mg UNSCH PRN IV PUSH 07/29/17 20:00 (Neyda-Colace) 1 tab BID PO 07/29/17 21:00 08/02/17 07:36 (Milk Of Magnesia Liq) 30 ml Q12H PRN PO 07/29/17 20:00 (Senokot) 17.2 mg Q12H PRN PO 07/29/17 20:00 (Dulcolax Supp) 10 mg DAILY PRN RECTAL 07/29/17 20:00 (Lactulose Liq) 30 ml DAILY PRN PO 07/29/17 20:00 (Ecotrin Ec) 325 mg DAILY PO 07/30/17 09:00 08/02/17 07:36 (Neurontin) 300 mg HS PO 07/29/17 21:00 07/30/17 19:43 (D50w (Vial) Inj) 50 ml UNSCH PRN IV PUSH 07/29/17 21:00 (Glucagon Inj) 1 mg UNSCH PRN OTHER 07/29/17 21:00 (NovoLOG SUPPLEMENTAL SCALE) 1 ACHS SLIDING SCALE SQ 07/29/17 21:00 08/02/17 12:15 (Morphine Inj) 2 mg Q30M PRN IV PUSH 07/29/17 21:15 07/31/17 05:32 (Nitrostat Sl) 0.4 mg Q5M PRN SL 07/29/17 21:15 07/31/17 18:05 (Duoneb Neb) 1 ampule Q6HR NEB PRN NEB 07/29/17 22:15 (Lopressor) 25 mg Q12HR PO 07/30/17 09:00 08/02/17 07:35 (Lipitor) 40 mg HS PO 07/30/17 21:00 08/01/17 20:28 (Lopressor Inj) 5 mg Q6H PRN IV PUSH 07/30/17 09:00 08/01/17 00:05 (Deltasone) 40 mg DAILY PO 07/30/17 09:30 08/04/17 09:29 08/02/17 07:36 (Duoneb Neb) 1 ampule Q6HR NEB INH 07/30/17 10:00 08/02/17 14:48 (Albuterol Neb) 2.5 mg Q2HR NEB PRN INH 07/30/17 09:30 (Levaquin) 500 mg Q48H PO 08/01/17 09:00 08/01/17 07:45 (Protonix) 40 mg DAILY PO 07/30/17 18:00 08/02/17 07:36 Miscellaneous Information Patient in critical care unit? Ass... Q361D .XX 07/30/17 21:30 07/30/17 21:30 (Chlorhexidine 2% Cloth) 3 pack DAILY@04 TOPICAL 07/31/17 04:00 08/04/17 04:01 08/02/17 04:00 (Chlorhexidine 2% Cloth) 3 pack UNSCH PRN TOPICAL 07/30/17 21:30 08/04/17 21:15 (Cardizem Cd) 240 mg DAILY PO 07/31/17 11:00 08/02/17 07:36 (Tylenol) 650 mg Q6H PRN PO 08/01/17 11:30 08/01/17 11:46 (Nitroglycerin 2% Oint) 0.75 inch Q6HR TOPICAL 08/01/17 13:15 08/02/17 12:15 Vital Signs / I&O Vital Signs Date Time Temp Pulse Resp B/P (MAP) Pulse Ox O2 Delivery O2 Flow Rate FiO2 08/02/17 12:00 86 08/02/17 12:00 97.7 86 29 110/75 (87) 88 08/02/17 10:00 81 08/02/17 09:36 91 Nasal Cannula 5.00 08/02/17 08:00 88 08/02/17 08:00 97.7 88 26 131/66 (87) 86 08/02/17 07:00 92 Nasal Cannula 5.00 08/02/17 06:00 85 08/02/17 04:00 97.7 82 18 111/69 (83) 91 08/02/17 04:00 82 08/02/17 02:00 85 08/02/17 00:00 92 08/02/17 00:00 97.6 92 24 104/55 (71) 92 08/01/17 22:00 90 08/01/17 21:28 92 Nasal Cannula 5.00 08/01/17 20:00 96.6 72 23 115/76 (89) 94 08/01/17 20:00 72 08/01/17 19:00 90 Nasal Cannula 4.00 08/01/17 18:00 82 08/01/17 16:00 98.1 78 18 112/59 (76) 92 08/01/17 16:00 78 I/O 08/01/17 08/01/17 08/01/17 08/02/17 08/02/17 08/02/17 07:00 15:00 23:00 07:00 15:00 23:00 Intake Total 342 ml 250 ml 401.8 ml 382 ml Output Total 500 ml 500 ml 700 ml Balance -158 ml 250 ml -98.2 ml -318 ml Intake Oral 240 ml 360 ml 240 ml IV Total 102 ml 250 ml 41.8 ml 142 ml Output Urine Total 500 ml 500 ml 700 ml # Bowel Movements 0 0 0 Physical Exam Obese, anxious Chest: no wheezing/ clear CV S1S2 irr irr regular rate Tele AF. HR increased to 130 when i had her sit up Abd soft Ext no edema. I can feel a right femoral pulse. Radial pulses are weak Laboratory Laboratory Tests Test 08/01/17 16:33 08/02/17 04:22 08/02/17 08:17 08/02/17 11:58 Activated Partial Thromboplast Time 54.0 SEC 116.4 SEC 54.4 SEC White Blood Count 10.6 TH/MM3 Red Blood Count 3.60 MIL/MM3 Hemoglobin 11.8 GM/DL Hematocrit 35.2 % Mean Corpuscular Volume 97.6 FL Mean Corpuscular Hemoglobin 32.6 PG Mean Corpuscular Hemoglobin Concent 33.4 % Red Cell Distribution Width 13.2 % Platelet Count 274 TH/MM3 Mean Platelet Volume 9.5 FL Neutrophils (%) (Auto) 78.4 % Lymphocytes (%) (Auto) 14.6 % Monocytes (%) (Auto) 6.8 % Eosinophils (%) (Auto) 0.0 % Basophils (%) (Auto) 0.2 % Neutrophils # (Auto) 8.3 TH/MM3 Lymphocytes # (Auto) 1.5 TH/MM3 Monocytes # (Auto) 0.7 TH/MM3 Eosinophils # (Auto) 0.0 TH/MM3 Basophils # (Auto) 0.0 TH/MM3 CBC Comment DIFF FINAL Differential Comment Blood Urea Nitrogen 52 MG/DL Creatinine 1.99 MG/DL Random Glucose 125 MG/DL Calcium Level 8.6 MG/DL Sodium Level 131 MEQ/L Potassium Level 4.2 MEQ/L Chloride Level 98 MEQ/L Carbon Dioxide Level 22.6 MEQ/L Anion Gap 10 MEQ/L Estimat Glomerular Filtration Rate 25 ML/MIN Troponin I 0.78 NG/ML Imaging Last 24 hours Impressions Chest X-Ray 08/02/17 0600 Signed Impressions: Service Date/Time: Wednesday, August 02, 2017 12:52 - CONCLUSION: 1. Cardiomegaly with mild CHF 2. Small bilateral effusions 3. Status post CABG Forrest Killian MD Assessment and Plan Problem List: (1) Tobacco use disorder ICD Codes: F17.200 - Nicotine dependence, unspecified, uncomplicated (2) Noncompliance ICD Codes: Z91.19 - Patient's noncompliance with other medical treatment and regimen (3) NSTEMI (non-ST elevated myocardial infarction) ICD Codes: I21.4 - Non-ST elevation (NSTEMI) myocardial infarction Status: Acute (4) Chronic kidney disease (CKD) ICD Codes: N18.9 - Chronic kidney disease, unspecified Plan: creatinine has not trended down yet (5) Atrial fibrillation with RVR ICD Codes: I48.91 - Unspecified atrial fibrillation Plan: rate too fast. Increase metoprolol to 50mg bid (6) Morbid obesity ICD Codes: E66.01 - Morbid (severe) obesity due to excess calories Assessment and Plan Will plan heart cath once creat trends down. Problem Qualifiers (1) Chronic kidney disease (CKD): Qualified Codes: N18.9 - Chronic kidney disease, unspecified Marco Vaca MD Aug 02, 2017 15:54
--- NOTE | 2017-08-02 16:06 | HHI.NPPN ---
Subjective History of Present Illness 71-year-old female with past medical history of hypertension, diabetes mellitus, ischemic heart disease, post coronary artery bypass grafting, chronic obstructive pulmonary disease, diabetes mellitus, peripheral vascular disease, and possible chronic kidney disease, who came to the hospital with atrial fibrillation and rapid ventricular rate. I was called to see the patient because of elevated BUN and creatinine. The patient has a creatinine of 1.59 on admission. Additional Remarks Patient is alert, no Chest pain, has mild SOB, with nasal cannula. Review of Systems General Constitutional: Fatigue Cardiovascular Cardiac: MARQUEZ Objective Data Data Vital Signs Date Time Temp Pulse Resp B/P (MAP) Pulse Ox O2 Delivery O2 Flow Rate FiO2 08/02/17 12:00 86 08/02/17 12:00 97.7 86 29 110/75 (87) 88 08/02/17 10:00 81 08/02/17 09:36 91 Nasal Cannula 5.00 08/02/17 08:00 88 08/02/17 08:00 97.7 88 26 131/66 (87) 86 08/02/17 07:00 92 Nasal Cannula 5.00 08/02/17 06:00 85 08/02/17 04:00 97.7 82 18 111/69 (83) 91 08/02/17 04:00 82 08/02/17 02:00 85 08/02/17 00:00 92 08/02/17 00:00 97.6 92 24 104/55 (71) 92 08/01/17 22:00 90 08/01/17 21:28 92 Nasal Cannula 5.00 08/01/17 20:00 96.6 72 23 115/76 (89) 94 08/01/17 20:00 72 08/01/17 19:00 90 Nasal Cannula 4.00 08/01/17 18:00 82 -: 08/02/17 0422 08/02/17 0422 Physical Exam General Appearance: No Acute Distress, Comfortable Eyes Eye Exam: Pupils Equal Throat Throat Exam: Oral Mucosa Marcy & Moist Neck Neck Exam: Neck Supple Pulmonary Resp Exam: Breath Sounds Equal, No Distress, Rhonchi, Decreased Bases, Diminished Breath Sounds Cardiology CV Exam: Regular, Normal Sinus Rhythm Gastrointestinal/Abdomen GI Exam: Soft, Non-Tender, Bowel Sounds Present Extremeties Extremities Exam: Trace Edema Neurologic Neuro Exam: Alert, Awake, Oriented Psychiatric Psych Exam: Appropriate Responses Assessment/Plan Assessment Summary: MARSHALL/Acute Renal Failure, Hypertension, CKD Stage III Problem List: (1) NSTEMI (non-ST elevated myocardial infarction) ICD Codes: I21.4 - Non-ST elevation (NSTEMI) myocardial infarction Status: Acute (2) Hypertension ICD Codes: I10 - Essential (primary) hypertension Status: Chronic (3) Diabetes ICD Codes: E11.9 - Type 2 diabetes mellitus without complications (4) COPD (chronic obstructive pulmonary disease) ICD Codes: J44.9 - Chronic obstructive pulmonary disease, unspecified Status: Chronic (5) New onset a-fib ICD Codes: I48.91 - Unspecified atrial fibrillation Status: Acute (6) Chronic kidney disease (CKD) ICD Codes: N18.9 - Chronic kidney disease, unspecified Plan Patient has stage 3 chronic kidney disease, possibly due to Hypertensive or Diabetic renal disease. Now develop MARSHALL, possibly related to contrast. Creatinine is still elevated at 1.8, K is normal. Non oliguric. Metoprolol increased. BP is stable. Avoid Nephrotoxins, and follow the urine out put and BMP. Problem Qualifiers (1) Diabetes: (2) Chronic kidney disease (CKD): Qualified Codes: N18.9 - Chronic kidney disease, unspecified Jessica Lay MD Aug 02, 2017 16:06
[2017-08-02] MEDS: HEPARIN-D5W 25,000 U/250 ML 250 ML IV PRN (17:14)
--- NOTE | 2017-08-02 18:00 | HHI.FPPN ---
Subjective Remarks Patient seen and examined bedside. Patient has been on 5 L nasal cannula for the last 2 days. She states her shortness of breath has much improved but it is still present. Her chest pain has much improved as well. When she came in on the day of admission she had severe chest pain. Over the last 2 days she has felt occasional epigastric pain and she says it feels like acid reflux. She has not had any radiation down either arm. She has not had any nausea vomiting or sweating associated with the chest pain. No acute events overnight. No fever/ chills. No dizziness. Objective Vitals Vital Signs Date Time Temp Pulse Resp B/P (MAP) Pulse Ox O2 Delivery O2 Flow Rate FiO2 08/02/17 16:00 95 08/02/17 14:00 83 08/02/17 12:00 86 08/02/17 12:00 97.7 86 29 110/75 (87) 88 08/02/17 10:00 81 08/02/17 09:36 91 Nasal Cannula 5.00 08/02/17 08:00 88 08/02/17 08:00 97.7 88 26 131/66 (87) 86 08/02/17 07:00 92 Nasal Cannula 5.00 08/02/17 06:00 85 08/02/17 04:00 97.7 82 18 111/69 (83) 91 08/02/17 04:00 82 08/02/17 02:00 85 08/02/17 00:00 92 08/02/17 00:00 97.6 92 24 104/55 (71) 92 08/01/17 22:00 90 08/01/17 21:28 92 Nasal Cannula 5.00 08/01/17 20:00 96.6 72 23 115/76 (89) 94 08/01/17 20:00 72 08/01/17 19:00 90 Nasal Cannula 4.00 08/01/17 18:00 82 I/O 08/01/17 08/01/17 08/01/17 08/02/17 08/02/17 08/02/17 07:00 15:00 23:00 07:00 15:00 23:00 Intake Total 342 ml 250 ml 401.8 ml 382 ml Output Total 500 ml 500 ml 700 ml Balance -158 ml 250 ml -98.2 ml -318 ml Intake Oral 240 ml 360 ml 240 ml IV Total 102 ml 250 ml 41.8 ml 142 ml Output Urine Total 500 ml 500 ml 700 ml # Bowel Movements 0 0 0 Result Diagram: 08/02/1742108/02/17421 Objective Remarks GENERAL: This is a well-nourished, well-developed patient, in no apparent distress. NC in place and 5 L and sitting upright in bed comfortably. Speaking in full sentences SKIN: No rashes, ecchymoses or lesions. Cool and dry. HEAD: Atraumatic. Normocephalic. EYES: Pupils equal round and reactive. Extraocular motions intact. No scleral icterus. No injection or drainage. ENT: Nose without bleeding or drainage. CARDIOVASCULAR: Irregular rate and rhythm without murmurs. RESPIRATORY: Clear to auscultation. No wheezes, rales, or rhonchi. GASTROINTESTINAL: Obese abdomen, soft, non-tender, nondistended. No hepato- splenomegaly, or palpable masses. No guarding. MUSCULOSKELETAL: Extremities without clubbing or cyanosis, +2 pedal edema noted BL -unchanged from prior exam. No joint tenderness, effusion, or edema noted. No calf tenderness. +2 DP pulses BL. NEUROLOGICAL: Awake and alert. Cranial nerves II through XII intact. Motor and sensory grossly within normal limits. Five out of 5 muscle strength in all muscle groups. Normal speech. A/P Assessment and Plan Patient is a 71-year-old female with past medical history of CAD s/p CABG, PVD, DM, HTN, COPD brought to the ED via [facility] after she developed sxs of severe chest pain and shortness of breath. In he ED patient was found to be in A. fib with RVR, elevated troponin of 0.39 with heart rate ranging from 110--160s and oxygen saturations in the low 90s. Patient admitted for management of NSTEMI and respiratory distress. Troponin trended up to 2.18 on morning of 07/30. Cardiology consulted, anticipate cath but patient has MARSHALL thus deferring cath at this time, heparin gtt and a fib management continuing at this time. Consulting nephrology on 08/01 as patient's creatinine remains elevated and reported decreased urinary output on 07/31. Renal ultrasound reveals small atrophic kidneys characteristic of medical renal disease. Discharge Planning Patient needs heart cath prior to discharge, will need improvement in renal function prior to that. Problem List: (1) NSTEMI (non-ST elevated myocardial infarction) ICD Codes: I21.4 - Non-ST elevation (NSTEMI) myocardial infarction Status: Acute Plan: EKG: Atrial fib with RVR troponin elevated at 0.39 -> 2.18 --> 1.76 In the ED started on heparin drip, given Cardizem 10 mg IV1, Lasix 40mg IV x1, morphine 4mg x1, nitroglycerin x1, solumedrol 125mg IV x1, duoneb x3. Bipap transitioned to NC in ED Placed on telemetry Imaging: CTA-No pulmonary embolus. Bibasilar areas of consolidation or atelectasis BNP of 493, no hx of CHF. Echocardiogram pending Cardiology consulted - will await improvement in renal function prior to proceeding with heart cath, awaiting for creatinine to trend down Continuing Heparin drip protocol ASA 325mg po daily Lipitor 40mg po HS Cardizem for atrial fibrillation Metoprolol 50 mg twice a day Repeat EKG ordered by cardiology today PT assessment stating patient will need home health with home PT at discharge (2) Atrial fibrillation with RVR ICD Codes: I48.91 - Unspecified atrial fibrillation Plan: On admission patient found to be in A. fib with RVR on EKG Unclear where this this is new onset although patient stated that she has palpitation "all the time". Patient not on warfarin or any other rhythm alternating agent. Patient asymptomatic, with HR ranging 110-160 on admission Patient received 1 dose of Cardizem 10 mg IV in ED Telemetry Will continue to monitor 07/30: Metoprolol Tartrate 25mg po BID, Metoprolol Tartrate 5mg IV push PRN for HR >110 07/31: HR 130s this AM. Cardizem 15mg IV x 1 then cardizem PO 240mg daily per cardiology (3) COPD (chronic obstructive pulmonary disease) ICD Codes: J44.9 - Chronic obstructive pulmonary disease, unspecified Status: Chronic Plan: Patient given solumedrol and 3 duoneb treatments in the ED Respiratory status improved but still requiring NC With CT findings showing bibasilar consolidation and increase oxygen demand, will treat for COPD exacerbation Levaquin 750mg once, 500mg [id number] (due to creatinine clearance less than 30) for 5 days (started 07/30) Prednisone 50mg daily for 5 days (done on 08/04) Duonebs, Albuterol PRN (4) Diabetes ICD Codes: E11.9 - Type 2 diabetes mellitus without complications Plan: Home metformin medication held Placed on SSI low dose hypoglycemia protocol monitor AccuChecks BG range 120-244 (5) Hypertension ICD Codes: I10 - Essential (primary) hypertension Status: Chronic Plan: Borderline hypotensive since admission Lisinopril 2.5mg PO daily (decrease from home dose of 10mg) Holding home Amlodipine for now Metoprolol 25mg PO BID started 07/30, Increased to 50mg BID on 08/02 Cardizem 240mg PO daily started 07/31 (6) Chronic kidney disease (CKD) ICD Codes: N18.9 - Chronic kidney disease, unspecified Plan: Creat 1.9 (from 1.59 on admission) - received contrast with CT scan in ED Avoid nephrotoxic agents Will continue to trend daily - will need improvement prior to heart cath Careful PO hydration given CHF Consulting nephrology as patient will need improvement in renal function prior to heart cath (7) Nutrition, metabolism, and development symptoms ICD Codes: R63.8 - Other symptoms and signs concerning food and fluid intake Plan: Fluids: careful hydration given CHF, PO Electrolytes: replete as needed Nutrition: Diabetic diet, pt will need to be NPO except meds the evening before cath DVT ppx: hepatin ggt Problem Qualifiers (1) Diabetes: (2) Chronic kidney disease (CKD): Qualified Codes: N18.9 - Chronic kidney disease, unspecified Freya Rush MD R2 Aug 02, 2017 18:00
[2017-08-02] MEDS: ATORVASTATIN 40 MG TAB PO SCH (21:20)
[2017-08-02] MEDS: GABAPENTIN 300 MG CAP PO SCH (21:20)
[2017-08-02] MEDS: HEPARIN SODIUM - IV 10,000 UNITS/10 ML VIAL IV PRN (22:33)
[2017-08-03] VITALS (16 sets, daily range): BP systolic 105–146; BP diastolic 57–79; PULSE 65–94; RESP 16–24; TEMP 97.6–98.4; O2SAT 92–97
[2017-08-03] MEDS: NITROGLYCERIN 2% OINT 1 GM PACKET TOPICAL SCH ×5 (00:27→23:07)
[2017-08-03] MEDS: RESP: ALBUTEROL 2.5 MG/IPRATROPIUM 0.5 MG NEB (SCH) INH (03:36)
[2017-08-03] MEDS: CHLORHEXIDINE GLUCONATE 2 % 1 PACK (2 CLOTHS)(taper/protocol) TOPICAL SCH ×2 (04:00→23:07)
[2017-08-03 06:51] LABS: AUTOMATED NEUTROPHIL # 6.2 TH/MM3 (1.8-7.7); BASOPHIL % 0.3 % (0.0-2.0); EOSINOPHIL % 0.2 % (0.0-4.0); HEMATOCRIT 34.6 % (35.0-46.0); HEMOGLOBIN 11.5 GM/DL (11.6-15.3); LYMPH % 22.3 % (9.0-44.0); MEAN CELL VOLUME 97.4 FL (80.0-100.0); MEAN CORPUSCULAR HEMOGLOBIN 32.3 PG (27.0-34.0); MEAN CORPUSCULAR HGB CONC 33.2 % (32.0-36.0); MEAN PLATELET VOLUME 9.6 FL (7.0-11.0); MONOCYTE # 0.8 TH/MM3 (0-0.9); NEUT % 68.2 % (16.0-70.0); PLATELET COUNT 269 TH/MM3 (150-450); RED BLOOD COUNT 3.55 MIL/MM3 (4.00-5.30); RED CELL DISTRIBUTION WIDTH 13.1 % (11.6-17.2); WHITE BLOOD COUNT 9.1 TH/MM3 (4.0-11.0)
[2017-08-03 07:12] LABS: ALBUMIN 3.3 GM/DL (3.4-5.0); ALT (GPT) 30 U/L (10-53); AST (GOT) 15 U/L (15-37); BICARBONATE 26.3 MEQ/L (21.0-32.0); BLOOD UREA NITROGEN 45 MG/DL (7-18); CALCIUM 8.5 MG/DL (8.5-10.1); CHLORIDE 104 MEQ/L (98-107); CREATININE 2.17 MG/DL (0.50-1.00); GLOMERULAR FILTRATION RATE 22 ML/MIN (>89); GLUCOSE,RANDOM 101 MG/DL (74-106); SODIUM (NA) 136 MEQ/L (136-145)
[2017-08-03 07:13] LABS: ALKALINE PHOSPHATASE 62 U/L (45-117); TOTAL BILIRUBIN ADULT 0.3 MG/DL (0.2-1.0); TOTAL PROTEIN 6.6 GM/DL (6.4-8.2)
[2017-08-03] MEDS: INSULIN ASPART SUPPLEMENTAL SCALE SQ SCH ×4 (08:00→20:08)
[2017-08-03] MEDS: METOPROLOL TARTRATE 25 MG TAB PO SCH ×2 (08:52→20:07)
[2017-08-03] MEDS: PANTOPRAZOLE SOD 40 MG DELAYED RELEASE TAB PO SCH (08:52)
[2017-08-03] MEDS: DOCUSATE SODIUM 50 MG/SENNA 8.6 MG TAB PO SCH ×2 (08:52→20:08)
[2017-08-03] MEDS: LEVOFLOXACIN 500 MG TAB PO SCH (08:53)
[2017-08-03] MEDS: DILTIAZEM-CD 240 MG CAP ER PO SCH (08:53)
[2017-08-03] MEDS: ASPIRIN EC 325 MG TABEC PO SCH (08:53)
[2017-08-03] MEDS: predniSONE 20 MG TAB PO SCH (08:53)
--- NOTE | 2017-08-03 09:21 | PD.CARD.PN ---
Subjective Subjective Remarks No angina. HR goes up with minimal activity Objective Medications Current Medications Medications (Trade) Dose Ordered Sig/Hilda Route Start Time Stop Time Status Last Admin (Heparin Inj) 5,000 units UNSCH PRN IV 07/30/17 00:15 07/31/17 21:26 (Heparin Inj) 2,500 units UNSCH PRN IV 07/30/17 00:15 08/02/17 22:33 Heparin Sodium/ Dextrose 250 ml @ 10 mls/hr TITRATE PRN IV 07/29/17 18:15 08/02/17 17:14 (NS Flush) 2 ml UNSCH PRN IV FLUSH 07/29/17 20:00 07/30/17 19:43 (NS Flush) 2 ml BID IV FLUSH 07/29/17 21:00 08/02/17 21:19 (Zofran Inj) 4 mg Q6H PRN IVP 07/29/17 20:00 07/31/17 05:34 (Narcan Inj) 0.4 mg UNSCH PRN IV PUSH 07/29/17 20:00 (Neyda-Colace) 1 tab BID PO 07/29/17 21:00 08/03/17 08:52 (Milk Of Magnesia Liq) 30 ml Q12H PRN PO 07/29/17 20:00 (Senokot) 17.2 mg Q12H PRN PO 07/29/17 20:00 (Dulcolax Supp) 10 mg DAILY PRN RECTAL 07/29/17 20:00 (Lactulose Liq) 30 ml DAILY PRN PO 07/29/17 20:00 (Ecotrin Ec) 325 mg DAILY PO 07/30/17 09:00 08/03/17 08:53 (Neurontin) 300 mg HS PO 07/29/17 21:00 08/02/17 21:20 (D50w (Vial) Inj) 50 ml UNSCH PRN IV PUSH 07/29/17 21:00 (Glucagon Inj) 1 mg UNSCH PRN OTHER 07/29/17 21:00 (NovoLOG SUPPLEMENTAL SCALE) 1 ACHS SLIDING SCALE SQ 07/29/17 21:00 08/02/17 22:11 (Morphine Inj) 2 mg Q30M PRN IV PUSH 07/29/17 21:15 07/31/17 05:32 (Nitrostat Sl) 0.4 mg Q5M PRN SL 07/29/17 21:15 07/31/17 18:05 (Duoneb Neb) 1 ampule Q6HR NEB PRN NEB 07/29/17 22:15 (Lipitor) 40 mg HS PO 07/30/17 21:00 08/02/17 21:20 (Lopressor Inj) 5 mg Q6H PRN IV PUSH 07/30/17 09:00 08/01/17 00:05 (Deltasone) 40 mg DAILY PO 07/30/17 09:30 08/04/17 09:29 08/03/17 08:53 (Duoneb Neb) 1 ampule Q6HR NEB INH 07/30/17 10:00 08/03/17 03:36 (Albuterol Neb) 2.5 mg Q2HR NEB PRN INH 07/30/17 09:30 (Levaquin) 500 mg Q48H PO 08/01/17 09:00 08/03/17 08:53 (Protonix) 40 mg DAILY PO 07/30/17 18:00 08/03/17 08:52 Miscellaneous Information Patient in critical care unit? Ass... Q361D .XX 07/30/17 21:30 07/30/17 21:30 (Chlorhexidine 2% Cloth) 3 pack DAILY@04 TOPICAL 07/31/17 04:00 08/04/17 04:01 08/03/17 04:00 (Chlorhexidine 2% Cloth) 3 pack UNSCH PRN TOPICAL 07/30/17 21:30 08/04/17 21:15 (Cardizem Cd) 240 mg DAILY PO 07/31/17 11:00 08/03/17 08:53 (Tylenol) 650 mg Q6H PRN PO 08/01/17 11:30 08/01/17 11:46 (Nitroglycerin 2% Oint) 0.75 inch Q6HR TOPICAL 08/01/17 13:15 08/03/17 06:16 (Lopressor) 50 mg Q12HR PO 08/02/17 21:00 08/03/17 08:52 Vital Signs / I&O Vital Signs Date Time Temp Pulse Resp B/P (MAP) Pulse Ox O2 Delivery O2 Flow Rate FiO2 08/03/17 08:00 98.0 90 17 146/66 (92) 92 08/03/17 06:00 94 08/03/17 04:00 97.7 79 20 105/65 (78) 96 08/03/17 04:00 79 08/03/17 02:00 84 08/03/17 00:00 98.4 86 20 116/79 (91) 93 08/03/17 00:00 91 08/02/17 21:07 93 Nasal Cannula 4.00 08/02/17 20:00 98.4 131 20 104/71 (82) 94 08/02/17 20:00 131 08/02/17 19:00 95 Nasal Cannula 5.00 08/02/17 18:00 113 08/02/17 16:00 95 08/02/17 16:00 98.2 95 20 97/54 (68) 94 08/02/17 14:00 83 08/02/17 12:00 86 08/02/17 12:00 97.7 86 29 110/75 (87) 88 08/02/17 10:00 81 08/02/17 09:36 91 Nasal Cannula 5.00 I/O 08/02/17 08/02/17 08/02/17 08/03/17 08/03/17 08/03/17 07:00 15:00 23:00 07:00 15:00 23:00 Intake Total 382 ml 310.8 ml 360 ml Output Total 700 ml 1100 ml 1200 ml Balance -318 ml -789.2 ml -840 ml Intake Oral 240 ml 300 ml 360 ml IV Total 142 ml 10.8 ml Output Urine Total 700 ml 1100 ml 1200 ml # Bowel Movements 0 0 0 Physical Exam Obese, anxious Chest: no wheezing/ clear CV S1S2 irr irr regular rate Tele AF. HR increases with minimal activity Abd soft Ext no edema. I can feel a right femoral pulse. Radial pulses are weak Laboratory Laboratory Tests Test 08/02/17 11:58 08/02/17 16:26 08/02/17 20:36 08/03/17 05:22 Activated Partial Thromboplast Time 54.4 SEC 39.2 SEC 36.0 SEC 45.2 SEC White Blood Count 9.1 TH/MM3 Red Blood Count 3.55 MIL/MM3 Hemoglobin 11.5 GM/DL Hematocrit 34.6 % Mean Corpuscular Volume 97.4 FL Mean Corpuscular Hemoglobin 32.3 PG Mean Corpuscular Hemoglobin Concent 33.2 % Red Cell Distribution Width 13.1 % Platelet Count 269 TH/MM3 Mean Platelet Volume 9.6 FL Neutrophils (%) (Auto) 68.2 % Lymphocytes (%) (Auto) 22.3 % Monocytes (%) (Auto) 9.0 % Eosinophils (%) (Auto) 0.2 % Basophils (%) (Auto) 0.3 % Neutrophils # (Auto) 6.2 TH/MM3 Lymphocytes # (Auto) 2.0 TH/MM3 Monocytes # (Auto) 0.8 TH/MM3 Eosinophils # (Auto) 0.0 TH/MM3 Basophils # (Auto) 0.0 TH/MM3 CBC Comment DIFF FINAL Differential Comment Blood Urea Nitrogen 45 MG/DL Creatinine 2.17 MG/DL Random Glucose 101 MG/DL Total Protein 6.6 GM/DL Albumin 3.3 GM/DL Calcium Level 8.5 MG/DL Alkaline Phosphatase 62 U/L Aspartate Amino Transf (AST/SGOT) 15 U/L Alanine Aminotransferase (ALT/SGPT) 30 U/L Total Bilirubin 0.3 MG/DL Sodium Level 136 MEQ/L Potassium Level 4.3 MEQ/L Chloride Level 104 MEQ/L Carbon Dioxide Level 26.3 MEQ/L Anion Gap 6 MEQ/L Estimat Glomerular Filtration Rate 22 ML/MIN Assessment and Plan Problem List: (1) Tobacco use disorder ICD Codes: F17.200 - Nicotine dependence, unspecified, uncomplicated (2) NSTEMI (non-ST elevated myocardial infarction) ICD Codes: I21.4 - Non-ST elevation (NSTEMI) myocardial infarction Status: Acute (3) Chronic kidney disease (CKD) ICD Codes: N18.9 - Chronic kidney disease, unspecified Plan: Creatinine has gone up again. Cath pushed back - maybe Thursday? (4) Atrial fibrillation with RVR ICD Codes: I48.91 - Unspecified atrial fibrillation Plan: Increase Dilt to 360mg. (5) Morbid obesity ICD Codes: E66.01 - Morbid (severe) obesity due to excess calories Assessment and Plan Will plan heart cath once creat trends down. Problem Qualifiers (1) Chronic kidney disease (CKD): Qualified Codes: N18.9 - Chronic kidney disease, unspecified Marco Vaca MD Aug 03, 2017 09:21
[2017-08-03] MEDS: SODIUM CHLORIDE 0.9% FLUSH 10 ML FLUSH IV FLUSH SCH ×2 (10:16→20:06)
--- NOTE | 2017-08-03 15:02 | HHI.FPPN ---
Subjective Remarks Mrs. Sosa reports doing well today. She reports that her chest pain has subsided. She reports that her breathing is "better." She has not had a bowel movement over the past several days. She does report some acid reflux symptoms. She is concerned that she is not getting her meals on time, and that the quality of food is poor. She denies any fevers or chills. He does admit to adequate by mouth intake, and normal urinary functions. She has had 2.3 L of output over the past 24 hours. Objective Vitals Vital Signs Date Time Temp Pulse Resp B/P (MAP) Pulse Ox O2 Delivery O2 Flow Rate FiO2 08/03/17 12:00 98.2 80 16 105/59 (74) 97 08/03/17 08:00 98.0 90 17 146/66 (92) 92 08/03/17 08:00 90 08/03/17 07:00 98 Nasal Cannula 4.00 08/03/17 06:00 94 08/03/17 04:00 97.7 79 20 105/65 (78) 96 08/03/17 04:00 79 08/03/17 02:00 84 08/03/17 00:00 98.4 86 20 116/79 (91) 93 08/03/17 00:00 91 08/02/17 21:07 93 Nasal Cannula 4.00 08/02/17 20:00 98.4 131 20 104/71 (82) 94 08/02/17 20:00 131 08/02/17 19:00 95 Nasal Cannula 5.00 08/02/17 18:00 113 08/02/17 16:00 95 08/02/17 16:00 98.2 95 20 97/54 (68) 94 I/O 08/02/17 08/02/17 08/02/17 08/03/17 08/03/17 08/03/17 07:00 15:00 23:00 07:00 15:00 23:00 Intake Total 382 ml 310.8 ml 360 ml Output Total 700 ml 1100 ml 1200 ml Balance -318 ml -789.2 ml -840 ml Intake Oral 240 ml 300 ml 360 ml IV Total 142 ml 10.8 ml Output Urine Total 700 ml 1100 ml 1200 ml # Bowel Movements 0 0 0 Result Diagram: 08/03/1752108/03/17521 Imaging Last 72 hours Impressions Chest X-Ray 08/02/17 0600 Signed Impressions: Service Date/Time: Wednesday, August 02, 2017 12:52 - CONCLUSION: 1. Cardiomegaly with mild CHF 2. Small bilateral effusions 3. Status post CABG Forrest Killian MD Renal Ultrasound 08/01/17 0000 Signed Impressions: Service Date/Time: Tuesday, August 01, 2017 11:15 - CONCLUSION: 1. No hydronephrosis. 2. The kidneys are small and atrophic with increased echogenicity characteristic of medical renal disease. Corwin Shine MD Objective Remarks GENERAL: This is a well-nourished, well-developed patient, in no apparent distress. NC in place and 5 L and sitting upright in bed comfortably. Speaking in full sentences SKIN: No rashes, ecchymoses or lesions. Cool and dry. HEAD: Atraumatic. Normocephalic. EYES: Pupils equal round and reactive. Extraocular motions intact. No scleral icterus. No injection or drainage. ENT: Nose without bleeding or drainage. CARDIOVASCULAR: Irregular rate and rhythm without murmurs. RESPIRATORY: Clear to auscultation. No wheezes, rales, or rhonchi. GASTROINTESTINAL: Obese abdomen, soft, non-tender, nondistended. No hepato- splenomegaly, or palpable masses. No guarding. MUSCULOSKELETAL: Extremities without clubbing or cyanosis, +2 pedal edema noted BL -unchanged from prior exam. No joint tenderness, effusion, or edema noted. No calf tenderness. +2 DP pulses BL. NEUROLOGICAL: Awake and alert. Cranial nerves II through XII intact. Motor and sensory grossly within normal limits. Five out of 5 muscle strength in all muscle groups. Normal speech. A/P Assessment and Plan Patient is a 71-year-old female with past medical history of CAD s/p CABG, PVD, DM, HTN, COPD brought to the ED via [facility] after she developed sxs of severe chest pain and shortness of breath. In he ED patient was found to be in A. fib with RVR, elevated troponin of 0.39 with heart rate ranging from 110--160s and oxygen saturations in the low 90s. Patient admitted for management of NSTEMI and respiratory distress. Troponin trended up to 2.18 on morning of 07/30. Cardiology consulted, anticipate cath but patient has MARSHALL thus deferring cath at this time, heparin gtt and a fib management continuing at this time. Consulting nephrology on 08/01 as patient's creatinine remains elevated and reported decreased urinary output on 07/31. Renal ultrasound reveals small atrophic kidneys characteristic of medical renal disease. Discharge Planning Patient needs heart cath prior to discharge, will need improvement in renal function prior to that. Problem List: (1) NSTEMI (non-ST elevated myocardial infarction) ICD Codes: I21.4 - Non-ST elevation (NSTEMI) myocardial infarction Status: Acute Plan: EKG: Atrial fib with RVR troponin elevated at 0.39 -> 2.18 --> 1.76 In the ED started on heparin drip, given Cardizem 10 mg IV1, Lasix 40mg IV x1, morphine 4mg x1, nitroglycerin x1, solumedrol 125mg IV x1, duoneb x3. Bipap transitioned to NC in ED Placed on telemetry Imaging: CTA-No pulmonary embolus. Bibasilar areas of consolidation or atelectasis BNP of 493, no hx of CHF. Echocardiogram pending Cardiology consulted - will await improvement in renal function prior to proceeding with heart cath, awaiting for creatinine to trend down. Continuing Heparin drip protocol ASA 325mg po daily Lipitor 40mg po HS Cardizem for atrial fibrillation - increased to 360 mg daily. Metoprolol 50 mg twice a day. PT assessment stating patient will need home health with home PT at discharge. (2) Atrial fibrillation with RVR ICD Codes: I48.91 - Unspecified atrial fibrillation Plan: On admission patient found to be in A. fib with RVR on EKG Unclear where this this is new onset although patient stated that she has palpitation "all the time". Patient not on warfarin or any other rhythm alternating agent. Patient asymptomatic, with HR ranging 110-160 on admission Patient received 1 dose of Cardizem 10 mg IV in ED Telemetry Will continue to monitor 07/30: Metoprolol Tartrate 25mg po BID, Metoprolol Tartrate 5mg IV push PRN for HR >110 07/31: HR 130s this AM. Cardizem 15mg IV x 1 then cardizem PO 240mg daily per cardiology 08/03: Increased dose of metoprolol to 40 mg twice a day, as well as diltiazem 360 mg daily. Having increased heart rate with minimal activity. (3) COPD (chronic obstructive pulmonary disease) ICD Codes: J44.9 - Chronic obstructive pulmonary disease, unspecified Status: Chronic Plan: Patient given solumedrol and 3 duoneb treatments in the ED Respiratory status improved but still requiring NC With CT findings showing bibasilar consolidation and increase oxygen demand, will treat for COPD exacerbation Levaquin 750mg once, 500mg [id number] (due to creatinine clearance less than 30) for 5 days (started 07/30) Prednisone 50mg daily for 5 days (done on 08/04) Duonebs, Albuterol PRN (4) Diabetes ICD Codes: E11.9 - Type 2 diabetes mellitus without complications Plan: Home metformin medication held Placed on SSI low dose hypoglycemia protocol monitor AccuChecks BG range 120-244 (5) Hypertension ICD Codes: I10 - Essential (primary) hypertension Status: Chronic Plan: Borderline hypotensive since admission Lisinopril 2.5mg PO daily (decrease from home dose of 10mg) Holding home Amlodipine for now Metoprolol 25mg PO BID started 07/30, Increased to 50mg BID on 08/02 Cardizem 240mg PO daily started 07/31, increased to 360 mg qd on 08/03. (6) Chronic kidney disease (CKD) ICD Codes: N18.9 - Chronic kidney disease, unspecified Plan: Creat 1.9 (from 1.59 on admission) - received contrast with CT scan in ED Avoid nephrotoxic agents Will continue to trend daily - will need improvement prior to heart cath Careful PO hydration given CHF Appreciate the assistance of nephrology. (7) Nutrition, metabolism, and development symptoms ICD Codes: R63.8 - Other symptoms and signs concerning food and fluid intake Plan: Fluids: careful hydration given CHF, PO Electrolytes: replete as needed Nutrition: Diabetic diet, pt will need to be NPO except meds the evening before cath DVT ppx: hepatin ggt Problem Qualifiers (1) Diabetes: (2) Chronic kidney disease (CKD): Qualified Codes: N18.9 - Chronic kidney disease, unspecified Ap Huerta MD, R3 Aug 03, 2017 15:02
--- NOTE | 2017-08-03 16:37 | HHI.NPPN ---
Subjective History of Present Illness 71-year-old female with past medical history of hypertension, diabetes mellitus, ischemic heart disease, post coronary artery bypass grafting, chronic obstructive pulmonary disease, diabetes mellitus, peripheral vascular disease, and possible chronic kidney disease, who came to the hospital with atrial fibrillation and rapid ventricular rate. I was called to see the patient because of elevated BUN and creatinine. The patient has a creatinine of 1.59 on admission. Additional Remarks Patient is alert, no Chest pain, and has mild SOB. Heparin gtt infusing. (Sujatha Barrett) General Problems: Heart Disease Renal Failure: Chronic, Acute, Stage III (Jessica Lay MD) Review of Systems General Constitutional: Fatigue (Sujatha Barrett) Respiratory Lungs: SOB Respiratory Remarks Mild (Sujatha Barrett) Cardiovascular Cardiac: MARQUEZ Cardiac Remarks No CP (Sujatha Barrett) Gastrointestinal GI Remarks No abdominal pain (Sujatha Barrett) Objective Data Data Vital Signs Date Time Temp Pulse Resp B/P (MAP) Pulse Ox O2 Delivery O2 Flow Rate FiO2 08/03/17 16:00 78 08/03/17 14:00 77 08/03/17 12:00 98.2 80 16 105/59 (74) 97 08/03/17 12:00 80 08/03/17 10:00 81 08/03/17 08:00 98.0 90 17 146/66 (92) 92 08/03/17 08:00 90 08/03/17 07:00 98 Nasal Cannula 4.00 08/03/17 06:00 94 08/03/17 04:00 97.7 79 20 105/65 (78) 96 08/03/17 04:00 79 08/03/17 02:00 84 08/03/17 00:00 98.4 86 20 116/79 (91) 93 08/03/17 00:00 91 08/02/17 21:07 93 Nasal Cannula 4.00 08/02/17 20:00 98.4 131 20 104/71 (82) 94 08/02/17 20:00 131 08/02/17 19:00 95 Nasal Cannula 5.00 08/02/17 18:00 113 (Sujatha Barrett) -: 08/03/17 0522 08/03/17 0522 Imaging Last Impressions Chest X-Ray 08/02/17 0600 Signed Impressions: Service Date/Time: Wednesday, August 02, 2017 12:52 - CONCLUSION: 1. Cardiomegaly with mild CHF 2. Small bilateral effusions 3. Status post CABG Forrest Killian MD Renal Ultrasound 08/01/17 0000 Signed Impressions: Service Date/Time: Tuesday, August 01, 2017 11:15 - CONCLUSION: 1. No hydronephrosis. 2. The kidneys are small and atrophic with increased echogenicity characteristic of medical renal disease. Corwin Shine MD CT Angiography 07/29/17 1700 Signed Impressions: Service Date/Time: Saturday, July 29, 2017 19:11 - CONCLUSION: 1. No pulmonary embolus. 2. Bibasilar areas of consolidation or atelectasis. Jhony Cabrera MD (Sujatha Barrett) Physical Exam General Appearance: No Acute Distress, Comfortable (Sujatha Barrett) Eyes Eye Exam: Pupils Equal (Sujatha Barrett) Throat Throat Exam: Oral Mucosa [place] & Moist (Sujatha Barrett) Neck Neck Exam: Neck Supple (Sujatha Barrett) Pulmonary Resp Exam: Breath Sounds Equal, No Distress, Rhonchi, Decreased Bases, Diminished Breath Sounds (Sujatha BarrettP) Cardiology CV Exam: Regular, Normal Sinus Rhythm (Sujatha Barrett) Gastrointestinal/Abdomen GI Exam: Soft, Non-Tender, Bowel Sounds Present (Sujatha Barrett) Extremeties Extremities Exam: Trace Edema (Sujatha Barrett) Neurologic Neuro Exam: Alert, Awake, Oriented (Sujatha Barrett) Psychiatric Psych Exam: Appropriate Responses (Sujatha Barrett) Assessment/Plan Assessment Summary: MARSHALL/Acute Renal Failure, Hypertension, CKD Stage III Problem List: (1) NSTEMI (non-ST elevated myocardial infarction) ICD Codes: I21.4 - Non-ST elevation (NSTEMI) myocardial infarction Status: Acute (2) Hypertension ICD Codes: I10 - Essential (primary) hypertension Status: Chronic (3) Diabetes ICD Codes: E11.9 - Type 2 diabetes mellitus without complications (4) COPD (chronic obstructive pulmonary disease) ICD Codes: J44.9 - Chronic obstructive pulmonary disease, unspecified Status: Chronic (5) New onset a-fib ICD Codes: I48.91 - Unspecified atrial fibrillation Status: Acute (6) Chronic kidney disease (CKD) ICD Codes: N18.9 - Chronic kidney disease, unspecified Plan Patient has stage 3 chronic kidney disease, possibly due to Hypertensive or Diabetic renal disease. Now develop MARSHALL, possibly related to contrast. Creatinine at 2.17 up from 1.99 Plan Fluids encouraged Avoid Nephrotoxins Follow the urine out put and BMP. (Sujatha Barrett) Problem List: (1) Atrial fibrillation with RVR ICD Codes: I48.91 - Unspecified atrial fibrillation (2) Chronic kidney disease (CKD) ICD Codes: N18.9 - Chronic kidney disease, unspecified (3) Hypertension ICD Codes: I10 - Essential (primary) hypertension Status: Chronic (4) Diabetes ICD Codes: E11.9 - Type 2 diabetes mellitus without complications (5) COPD (chronic obstructive pulmonary disease) ICD Codes: J44.9 - Chronic obstructive pulmonary disease, unspecified Status: Chronic (6) NSTEMI (non-ST elevated myocardial infarction) ICD Codes: I21.4 - Non-ST elevation (NSTEMI) myocardial infarction Status: Acute Plan Patient seen and examined, agree with above. Creatinine still increasing, possibly has Contrast related. (Jessica Lay MD) Problem Qualifiers (1) Diabetes: (2) Chronic kidney disease (CKD): Qualified Codes: N18.9 - Chronic kidney disease, unspecified Sujatha Barrett Aug 03, 2017 16:37 Jessica Lay MD Aug 03, 2017 18:21
[2017-08-03] MEDS: DILTIAZEM-CD 120 MG CAP ER PO SCH (17:42)
[2017-08-03] MEDS: HEPARIN SODIUM - IV 10,000 UNITS/10 ML VIAL IV PRN (18:26)
[2017-08-03] MEDS: ATORVASTATIN 40 MG TAB PO SCH (20:06)
[2017-08-03] MEDS: GABAPENTIN 300 MG CAP PO SCH (20:07)
[2017-08-03] MEDS: HEPARIN-D5W 25,000 U/250 ML 250 ML IV PRN (20:18)
[2017-08-04] VITALS (14 sets, daily range): BP systolic 90–121; BP diastolic 57–77; PULSE 74–98; RESP 12–37; TEMP 97.7–98.6; O2SAT 95–97
[2017-08-04 04:33] LABS: BICARBONATE 25.7 MEQ/L (21.0-32.0); CALCIUM 8.2 MG/DL (8.5-10.1); CREATININE 1.98 MG/DL (0.50-1.00)
[2017-08-04] MEDS: NITROGLYCERIN 2% OINT 1 GM PACKET TOPICAL SCH ×4 (05:18→22:47)
[2017-08-04] MEDS: INSULIN ASPART SUPPLEMENTAL SCALE SQ SCH ×4 (08:00→22:46)
[2017-08-04] MEDS ORDERED: DILTIAZEM-CD 240 MG CAP ER PO SCH (09:00)
[2017-08-04] MEDS: ASPIRIN EC 325 MG TABEC PO SCH (09:15)
[2017-08-04] MEDS: PANTOPRAZOLE SOD 40 MG DELAYED RELEASE TAB PO SCH (09:15)
[2017-08-04] MEDS: DOCUSATE SODIUM 50 MG/SENNA 8.6 MG TAB PO SCH ×2 (09:15→21:00)
[2017-08-04] MEDS: predniSONE 20 MG TAB PO SCH (09:15)
[2017-08-04] MEDS: METOPROLOL TARTRATE 25 MG TAB PO SCH ×2 (09:16→21:00)
--- NOTE | 2017-08-04 10:05 | PD.CARD.PN ---
Subjective Subjective Remarks No angina. Objective Medications Current Medications Medications (Trade) Dose Ordered Sig/Hilda Route Start Time Stop Time Status Last Admin (Heparin Inj) 5,000 units UNSCH PRN IV 07/30/17 00:15 07/31/17 21:26 (Heparin Inj) 2,500 units UNSCH PRN IV 07/30/17 00:15 08/03/17 18:26 Heparin Sodium/ Dextrose 250 ml @ 10 mls/hr TITRATE PRN IV 07/29/17 18:15 08/03/17 20:18 (NS Flush) 2 ml UNSCH PRN IV FLUSH 07/29/17 20:00 07/30/17 19:43 (NS Flush) 2 ml BID IV FLUSH 07/29/17 21:00 08/03/17 20:06 (Zofran Inj) 4 mg Q6H PRN IVP 07/29/17 20:00 07/31/17 05:34 (Narcan Inj) 0.4 mg UNSCH PRN IV PUSH 07/29/17 20:00 (Neyda-Colace) 1 tab BID PO 07/29/17 21:00 08/04/17 09:15 (Milk Of Magnesia Liq) 30 ml Q12H PRN PO 07/29/17 20:00 08/03/17 10:15 (Senokot) 17.2 mg Q12H PRN PO 07/29/17 20:00 (Dulcolax Supp) 10 mg DAILY PRN RECTAL 07/29/17 20:00 (Lactulose Liq) 30 ml DAILY PRN PO 07/29/17 20:00 (Ecotrin Ec) 325 mg DAILY PO 07/30/17 09:00 08/04/17 09:15 (Neurontin) 300 mg HS PO 07/29/17 21:00 08/03/17 20:07 (D50w (Vial) Inj) 50 ml UNSCH PRN IV PUSH 07/29/17 21:00 (Glucagon Inj) 1 mg UNSCH PRN OTHER 07/29/17 21:00 (NovoLOG SUPPLEMENTAL SCALE) 1 ACHS SLIDING SCALE SQ 07/29/17 21:00 08/04/17 08:00 (Morphine Inj) 2 mg Q30M PRN IV PUSH 07/29/17 21:15 07/31/17 05:32 (Nitrostat Sl) 0.4 mg Q5M PRN SL 07/29/17 21:15 07/31/17 18:05 (Duoneb Neb) 1 ampule Q6HR NEB PRN NEB 07/29/17 22:15 (Lipitor) 40 mg HS PO 07/30/17 21:00 08/03/17 20:06 (Lopressor Inj) 5 mg Q6H PRN IV PUSH 07/30/17 09:00 08/01/17 00:05 (Albuterol Neb) 2.5 mg Q2HR NEB PRN INH 07/30/17 09:30 (Levaquin) 500 mg Q48H PO 08/01/17 09:00 08/03/17 08:53 (Protonix) 40 mg DAILY PO 07/30/17 18:00 08/04/17 09:15 Miscellaneous Information Patient in critical care unit? Ass... [id number] .XX 07/30/17 21:30 07/30/17 21:30 (Chlorhexidine 2% Cloth) 3 pack UNSCH PRN TOPICAL 07/30/17 21:30 08/04/17 21:15 (Tylenol) 650 mg Q6H PRN PO 08/01/17 11:30 08/01/17 11:46 (Nitroglycerin 2% Oint) 0.75 inch Q6HR TOPICAL 08/01/17 13:15 08/04/17 05:18 (Lopressor) 50 mg Q12HR PO 08/02/17 21:00 08/04/17 09:16 (Cardizem Cd) 120 mg DAILY@1600 PO 08/03/17 16:00 08/03/17 17:42 (Cardizem Cd) 240 mg DAILY PO 08/04/17 09:00 08/04/17 09:15 Vital Signs / I&O Vital Signs Date Time Temp Pulse Resp B/P (MAP) Pulse Ox O2 Delivery O2 Flow Rate FiO2 08/04/17 06:00 78 08/04/17 04:00 77 08/04/17 04:00 98.6 79 12 116/63 (80) 97 08/04/17 02:00 83 08/04/17 00:00 98.2 74 14 111/61 (78) 96 08/04/17 00:00 74 08/03/17 23:00 74 08/03/17 22:01 71 08/03/17 22:00 70 08/03/17 21:00 70 08/03/17 20:47 95 Nasal Cannula 4.00 08/03/17 20:00 65 08/03/17 20:00 97.6 65 24 111/59 (76) 94 08/03/17 19:00 94 Nasal Cannula 4.00 08/03/17 18:00 98.2 69 19 105/57 (73) 95 08/03/17 16:00 78 08/03/17 14:00 77 08/03/17 12:00 98.2 80 16 105/59 (74) 97 08/03/17 12:00 80 I/O 08/03/17 08/03/17 08/03/17 08/04/17 08/04/17 08/04/17 07:00 15:00 23:00 07:00 15:00 23:00 Intake Total 360 ml 1250 ml 480 ml Output Total 1200 ml 1500 ml Balance -840 ml -250 ml 480 ml Intake Oral 360 ml 1000 ml 480 ml IV Total 250 ml Output Urine Total 1200 ml 1500 ml # Voids 4 # Bowel Movements 0 1 3 Physical Exam Obese, anxious Chest: no wheezing/ clear CV S1S2 irr irr regular rate Tele AF. HR MUCH BETTER CONTROLLED Abd soft Ext no edema. I can feel a right femoral pulse. Radial pulses are weak Creatinine has gone down from the previous day instead of up for the first time this admit Laboratory Laboratory Tests Test 08/03/17 15:48 08/04/17 03:18 08/04/17 05:08 08/04/17 07:24 Activated Partial Thromboplast Time 34.3 SEC 209.6 SEC 104.1 SEC Blood Urea Nitrogen 44 MG/DL Creatinine 1.98 MG/DL Random Glucose 125 MG/DL Calcium Level 8.2 MG/DL Sodium Level 136 MEQ/L Potassium Level 4.8 MEQ/L Chloride Level 102 MEQ/L Carbon Dioxide Level 25.7 MEQ/L Anion Gap 8 MEQ/L Estimat Glomerular Filtration Rate 25 ML/MIN Assessment and Plan Problem List: (1) Tobacco use disorder ICD Codes: F17.200 - Nicotine dependence, unspecified, uncomplicated (2) NSTEMI (non-ST elevated myocardial infarction) ICD Codes: I21.4 - Non-ST elevation (NSTEMI) myocardial infarction Status: Acute (3) Chronic kidney disease (CKD) ICD Codes: N18.9 - Chronic kidney disease, unspecified (4) Atrial fibrillation with RVR ICD Codes: I48.91 - Unspecified atrial fibrillation Plan: now controlled (5) Morbid obesity ICD Codes: E66.01 - Morbid (severe) obesity due to excess calories Assessment and Plan Will plan heart cath 7:30AM tomorrow Problem Qualifiers (1) Chronic kidney disease (CKD): Qualified Codes: N18.9 - Chronic kidney disease, unspecified Marco Vaca MD Aug 04, 2017 10:05
--- NOTE | 2017-08-04 10:31 | HHI.FPPN ---
Subjective Remarks Patient seen and examined bedside this morning. Patient continues to feel 2 out of 8 chest discomfort that has not changed. She denies any changes in her chest pain. Denies any radiation down either arm. Patient denies any shortness of breath or dizziness. She is eating and drinking without difficulty. She has spoken with the special effects artist this morning is excited for the patient to catheterization tomorrow. Objective Vitals Vital Signs Date Time Temp Pulse Resp B/P (MAP) Pulse Ox O2 Delivery O2 Flow Rate FiO2 08/04/17 06:00 78 08/04/17 04:00 77 08/04/17 04:00 98.6 79 12 116/63 (80) 97 08/04/17 02:00 83 08/04/17 00:00 98.2 74 14 111/61 (78) 96 08/04/17 00:00 74 08/03/17 23:00 74 08/03/17 22:01 71 08/03/17 22:00 70 08/03/17 21:00 70 08/03/17 20:47 95 Nasal Cannula 4.00 08/03/17 20:00 65 08/03/17 20:00 97.6 65 24 111/59 (76) 94 08/03/17 19:00 94 Nasal Cannula 4.00 08/03/17 18:00 98.2 69 19 105/57 (73) 95 08/03/17 16:00 78 08/03/17 14:00 77 08/03/17 12:00 98.2 80 16 105/59 (74) 97 08/03/17 12:00 80 I/O 08/03/17 08/03/17 08/03/17 08/04/17 08/04/17 08/04/17 07:00 15:00 23:00 07:00 15:00 23:00 Intake Total 360 ml 1250 ml 480 ml Output Total 1200 ml 1500 ml Balance -840 ml -250 ml 480 ml Intake Oral 360 ml 1000 ml 480 ml IV Total 250 ml Output Urine Total 1200 ml 1500 ml # Voids 4 # Bowel Movements 0 1 3 Result Diagram: 08/03/17 0522 08/04/17 0318 Objective Remarks GENERAL: This is a well-nourished, well-developed patient, in no apparent distress. NC in place and 5 L and sitting upright in bed comfortably. Speaking in full sentences SKIN: No rashes, ecchymoses or lesions. Cool and dry. HEAD: Atraumatic. Normocephalic. EYES: Pupils equal round and reactive. Extraocular motions intact. No scleral icterus. No injection or drainage. ENT: Nose without bleeding or drainage. CARDIOVASCULAR: Irregular rate and rhythm without murmurs. RESPIRATORY: Clear to auscultation. No wheezes, rales, or rhonchi. GASTROINTESTINAL: Obese abdomen, soft, non-tender, nondistended. No hepato- splenomegaly, or palpable masses. No guarding. MUSCULOSKELETAL: Extremities without clubbing or cyanosis, +2 pedal edema noted BL -unchanged from prior exam. No joint tenderness, effusion, or edema noted. No calf tenderness. +2 DP pulses BL. NEUROLOGICAL: Awake and alert. Cranial nerves II through XII intact. Motor and sensory grossly within normal limits. Five out of 5 muscle strength in all muscle groups. Normal speech. A/P Assessment and Plan Patient is a 71-year-old female with past medical history of CAD s/p CABG, PVD, DM, HTN, COPD brought to the ED via [facility] after she developed sxs of severe chest pain and shortness of breath. In he ED patient was found to be in A. fib with RVR, elevated troponin of 0.39 with heart rate ranging from 110--160s and oxygen saturations in the low 90s. Patient admitted for management of NSTEMI and respiratory distress. Nephrology has been consulted for MARSHALL on CKD, thought to be due to contrast for imaging. Creatinine downtrending over last day, and patient scheduled for catheterization tomorrow. Discharge Planning Patient needs heart cath prior to discharge Problem List: (1) NSTEMI (non-ST elevated myocardial infarction) ICD Codes: I21.4 - Non-ST elevation (NSTEMI) myocardial infarction Status: Acute Plan: EKG: Atrial fib with RVR On admission: troponin elevated at 0.39 -> 2.18 --> 1.76 In the ED started on heparin drip, given Cardizem 10 mg IV1, Lasix 40mg IV x1, morphine 4mg x1, nitroglycerin x1, solumedrol 125mg IV x1, duoneb x3. Bipap transitioned to NC in ED Placed on telemetry Imaging: CTA-No pulmonary embolus. Bibasilar areas of consolidation or atelectasis BNP of 493, no hx of CHF. Echocardiogram pending Cardiology consulted -plan for cardiac catheterization tomorrow on 08/05 Continuing Heparin drip protocol ASA 325mg po daily Lipitor 40mg po HS Cardizem for atrial fibrillation -240 mg daily Metoprolol 50 mg twice a day Nitroglycerin ointment every 6 scheduled. PT assessment stating patient will need home health with home PT at discharge. (2) Atrial fibrillation with RVR ICD Codes: I48.91 - Unspecified atrial fibrillation Plan: Heart rate 78 today, no tachycardia last 24 hours On admission patient found to be in A. fib with RVR on EKG Unclear where this this is new onset although patient stated that she has palpitation "all the time". Patient not on warfarin or any other rhythm alternating agent. Patient asymptomatic, with HR ranging 110-160 on admission Patient received 1 dose of Cardizem 10 mg IV in ED Telemetry Will continue to monitor 07/30: Metoprolol Tartrate 25mg po BID, Metoprolol Tartrate 5mg IV push PRN for HR >110 07/31: HR 130s this AM. Cardizem 15mg IV x 1 then cardizem PO 240mg daily per cardiology 08/03: Increased dose of metoprolol to 40 mg twice a day, as well as diltiazem 360 mg daily. Having increased heart rate with minimal activity. (3) COPD (chronic obstructive pulmonary disease) ICD Codes: J44.9 - Chronic obstructive pulmonary disease, unspecified Status: Chronic Plan: Patient given solumedrol and 3 duoneb treatments in the ED Respiratory status improved but still requiring NC 4 L s/p treatment for COPD exacerbation Levaquin 750mg once, 500mg [id number] (due to creatinine clearance less than 30) for 5 days ( 07/30 - 08/04, 2 doses only given q48 for MARSHALL) Prednisone 50mg daily for 5 days (07/30- 08/04) Duonebs, Albuterol PRN Chest x-ray on admission 07/29: Mild bibasilar infiltrates, interstitial changes Chest x-ray on 08/02: Mild CHF with mild bilateral effusions, no consolidations (4) Diabetes ICD Codes: E11.9 - Type 2 diabetes mellitus without complications Plan: Home metformin medication held Placed on SSI low dose hypoglycemia protocol monitor AccuChecks BG range 120-244, patient on steroids (5) Hypertension ICD Codes: I10 - Essential (primary) hypertension Status: Chronic Plan: Borderline hypotensive since admission Holding home Amlodipine for now Metoprolol 50mg BID Cardizem 240mg PO daily (6) Chronic kidney disease (CKD) ICD Codes: N18.9 - Chronic kidney disease, unspecified Plan: Creat 1.9 (from 1.59 on admission) - received contrast with CT scan in ED Avoid nephrotoxic agents Will continue to trend daily - will need improvement prior to heart cath Careful PO hydration given CHF Appreciate the assistance of nephrology. (7) Nutrition, metabolism, and development symptoms ICD Codes: R63.8 - Other symptoms and signs concerning food and fluid intake Plan: Fluids: careful hydration given CHF, PO, nothing by mouth at midnight for cath Electrolytes: replete as needed Nutrition: Diabetic diet, pt will need to be NPO except meds the evening before cath DVT ppx: hepatin ggt Problem Qualifiers (1) Diabetes: (2) Chronic kidney disease (CKD): Qualified Codes: N18.9 - Chronic kidney disease, unspecified Freya Rush MD R2 Aug 04, 2017 10:31
[2017-08-04] MEDS: SODIUM CHLORIDE 0.9% FLUSH 10 ML FLUSH IV FLUSH SCH ×2 (11:54→22:44)
[2017-08-04] MEDS: HEPARIN SODIUM - IV 10,000 UNITS/10 ML VIAL IV PRN (12:02)
[2017-08-04] MEDS ORDERED: diphenhydrAMINE HCL 25 MG CAP PO SCH (12:15)
[2017-08-04] MEDS ORDERED: DIAZEPAM 5 MG TAB PO SCH (12:15)
--- NOTE | 2017-08-04 15:16 | HHI.NPPN ---
Subjective General Problems: Heart Disease Renal Failure: Chronic, Acute, Stage III History of Present Illness 71-year-old female with past medical history of hypertension, diabetes mellitus, ischemic heart disease, post coronary artery bypass grafting, chronic obstructive pulmonary disease, diabetes mellitus, peripheral vascular disease, and possible chronic kidney disease, who came to the hospital with atrial fibrillation and rapid ventricular rate. I was called to see the patient because of elevated BUN and creatinine. The patient has a creatinine of 1.59 on admission. Additional Remarks Patient is alert, no Chest pain, and has mild SOB. Heparin gtt infusing. Plans for heart cath tomorrow. (Sujatha Barrett) Review of Systems General Constitutional: Fatigue (Sujatha Barrett) Respiratory Lungs: SOB Respiratory Remarks Mild (Sujatha Barrett) Cardiovascular Cardiac: MARQUEZ Cardiac Remarks No CP (Sujatha Barrett) Gastrointestinal GI Remarks No abdominal pain (Sujatha Barrett) Objective Data Data Vital Signs Date Time Temp Pulse Resp B/P (MAP) Pulse Ox O2 Delivery O2 Flow Rate FiO2 08/04/17 10:38 97 Nasal Cannula 4.00 08/04/17 06:00 78 08/04/17 04:00 77 08/04/17 04:00 98.6 79 12 116/63 (80) 97 08/04/17 02:00 83 08/04/17 00:00 98.2 74 14 111/61 (78) 96 08/04/17 00:00 74 08/03/17 23:00 74 08/03/17 22:01 71 08/03/17 22:00 70 08/03/17 21:00 70 08/03/17 20:47 95 Nasal Cannula 4.00 08/03/17 20:00 65 08/03/17 20:00 97.6 65 24 111/59 (76) 94 08/03/17 19:00 94 Nasal Cannula 4.00 08/03/17 18:00 98.2 69 19 105/57 (73) 95 08/03/17 16:00 78 (Sujatha Barrett) -: 08/03/17 0522 08/04/17 0318 Imaging Last Impressions Chest X-Ray 08/02/17 0600 Signed Impressions: Service Date/Time: Wednesday, August 02, 2017 12:52 - CONCLUSION: 1. Cardiomegaly with mild CHF 2. Small bilateral effusions 3. Status post CABG Forrest Killian MD Renal Ultrasound 08/01/17 0000 Signed Impressions: Service Date/Time: Tuesday, August 01, 2017 11:15 - CONCLUSION: 1. No hydronephrosis. 2. The kidneys are small and atrophic with increased echogenicity characteristic of medical renal disease. Corwin Shine MD CT Angiography 07/29/17 1700 Signed Impressions: Service Date/Time: Saturday, July 29, 2017 19:11 - CONCLUSION: 1. No pulmonary embolus. 2. Bibasilar areas of consolidation or atelectasis. Jhony Cabrera MD (GelSujatha carlos. BEHAVIORAL SCIENCES INSTRUCTOR) Physical Exam General Appearance: No Acute Distress, Comfortable (GellermannSelenaSujatha M. BEHAVIORAL SCIENCES INSTRUCTOR) Eyes Eye Exam: Pupils Equal (GellerSelena channe M. BEHAVIORAL SCIENCES INSTRUCTOR) Throat Throat Exam: Oral Mucosa Foyil & Moist (GellerSelena channe M. BEHAVIORAL SCIENCES INSTRUCTOR) Neck Neck Exam: Neck Supple (GellermannSelenaSujatha M. BEHAVIORAL SCIENCES INSTRUCTOR) Pulmonary Resp Exam: Breath Sounds Equal, No Distress, Diminished Breath Sounds (GellerSelena channe M. BEHAVIORAL SCIENCES INSTRUCTOR) Cardiology CV Exam: Regular, Normal Sinus Rhythm (GellerSelena channe M. BEHAVIORAL SCIENCES INSTRUCTOR) Gastrointestinal/Abdomen GI Exam: Soft, Non-Tender, Bowel Sounds Present (GellermannSelenaSujatha M. BEHAVIORAL SCIENCES INSTRUCTOR) Extremeties Extremities Exam: Trace Edema (LudylerSelena channe M. BEHAVIORAL SCIENCES INSTRUCTOR) Neurologic Neuro Exam: Alert, Awake, Oriented (GellerSelena channe M. BEHAVIORAL SCIENCES INSTRUCTOR) Psychiatric Psych Exam: Appropriate Responses (GellerSelena channe M. BEHAVIORAL SCIENCES INSTRUCTOR) Assessment/Plan Assessment Summary: MARSHALL/Acute Renal Failure, Hypertension, CKD Stage III Problem List: (1) Atrial fibrillation with RVR ICD Codes: I48.91 - Unspecified atrial fibrillation (2) Chronic kidney disease (CKD) ICD Codes: N18.9 - Chronic kidney disease, unspecified (3) Hypertension ICD Codes: I10 - Essential (primary) hypertension Status: Chronic (4) Diabetes ICD Codes: E11.9 - Type 2 diabetes mellitus without complications (5) COPD (chronic obstructive pulmonary disease) ICD Codes: J44.9 - Chronic obstructive pulmonary disease, unspecified Status: Chronic (6) NSTEMI (non-ST elevated myocardial infarction) ICD Codes: I21.4 - Non-ST elevation (NSTEMI) myocardial infarction Status: Acute Plan Patient has stage 3 chronic kidney disease, possibly due to Hypertensive or Diabetic renal disease. Develop MARSHALL, possibly related to contrast. Creatinine improved at 1.98 from 2.17 today Plan Plan for heart cath tomorrow will order IVF for 12 hours prior to procedure. Discussed MIKE and risk factors. Follow the urine out put and BMP. (Sujatha Barrett) Plan Patient seen and examined, agree with above. Creatinine slightly better, for Cardiac Cath. in AM. (Jessica Lay MD) Problem Qualifiers (1) Chronic kidney disease (CKD): Qualified Codes: N18.9 - Chronic kidney disease, unspecified (2) Diabetes: Sujatha Barrett Aug 04, 2017 15:16 Jessica Lay MD Aug 04, 2017 18:53
[2017-08-04] MEDS: DILTIAZEM-CD 120 MG CAP ER PO SCH (18:13)
[2017-08-04] MEDS: RESP: ALBUTEROL 2.5 MG/IPRATROPIUM 0.5 MG NEB (PRN) NEB (20:34)
[2017-08-04] MEDS: ATORVASTATIN 40 MG TAB PO SCH (22:44)
[2017-08-04] MEDS: SODIUM CHLOR 0.9% 1000 ML INJ 1,000 ML IV SCH (22:44)
[2017-08-04] MEDS: GABAPENTIN 300 MG CAP PO SCH (22:45)
[2017-08-05] VITALS (19 sets, daily range): BP systolic 105–156; BP diastolic 59–106; PULSE 64–125; RESP 12–34; TEMP 97.4–98.9; O2SAT 90–100
[2017-08-05 05:56] LABS: AUTOMATED NEUTROPHIL # 9.9 TH/MM3 (1.8-7.7); BASOPHIL % 0.4 % (0.0-2.0); EOSINOPHIL % 0.1 % (0.0-4.0); HEMATOCRIT 34.1 % (35.0-46.0); HEMOGLOBIN 11.1 GM/DL (11.6-15.3); LYMPH % 13.8 % (9.0-44.0); LYMPHOCYTE # 1.7 TH/MM3 (1.0-4.8); MEAN CELL VOLUME 98.1 FL (80.0-100.0); MEAN CORPUSCULAR HGB CONC 32.6 % (32.0-36.0); MEAN PLATELET VOLUME 9.7 FL (7.0-11.0); MONO % 5.9 % (0.0-8.0); MONOCYTE # 0.7 TH/MM3 (0-0.9); NEUT % 79.8 % (16.0-70.0); PLATELET COUNT 265 TH/MM3 (150-450); RED BLOOD COUNT 3.48 MIL/MM3 (4.00-5.30); RED CELL DISTRIBUTION WIDTH 13.5 % (11.6-17.2); WHITE BLOOD COUNT 12.3 TH/MM3 (4.0-11.0)
[2017-08-05] MEDS: NITROGLYCERIN 2% OINT 1 GM PACKET TOPICAL SCH ×3 (06:04→17:12)
[2017-08-05 06:19] LABS: BICARBONATE 25.8 MEQ/L (21.0-32.0); CALCIUM 8.4 MG/DL (8.5-10.1); CREATININE 1.72 MG/DL (0.50-1.00)
[2017-08-05] MEDS ORDERED: HEPARIN-NS/PF FLUSH BAG 2,000 ML IV FLUSH ONE (07:24)
[2017-08-05] MEDS: SODIUM CHLOR 0.9% 1000 ML INJ 1,000 ML IV SCH ×5 (07:25→22:23)
[2017-08-05] MEDS ORDERED: LIDOCAINE HCL 1% PF 30 ML VIAL ONE (07:32)
[2017-08-05] MEDS ORDERED: MIDAZOLAM HCL 2 MG/2 ML VIAL ONE (07:43)
[2017-08-05] MEDS ORDERED: MORPHINE SULFATE 10 MG/ML INJ ONE (07:55)
[2017-08-05] MEDS: INSULIN ASPART SUPPLEMENTAL SCALE SQ SCH ×4 (08:00→20:14)
[2017-08-05] MEDS ORDERED: VERAPAMIL HCL 5 MG/2 ML VIAL ONE (08:44)
[2017-08-05] MEDS ORDERED: HEPARIN SODIUM - IV 10,000 UNITS/10 ML VIAL ONE (08:44)
[2017-08-05] MEDS ORDERED: NITROGLYCERIN INJ 5 ML ONE (08:44)
[2017-08-05] MEDS: PANTOPRAZOLE SOD 40 MG DELAYED RELEASE TAB PO SCH (09:00)
[2017-08-05] MEDS: DOCUSATE SODIUM 50 MG/SENNA 8.6 MG TAB PO SCH ×2 (09:00→20:14)
[2017-08-05] MEDS ORDERED: STERILE WATER FOR INJECTION 10 ML VIAL ONE (09:49)
[2017-08-05] MEDS ORDERED: BIVALIRUDIN 250 MG VIAL ONE (09:49)
[2017-08-05] MEDS ORDERED: PHENYLEPHRINE HCL 10 MG/ML VIAL ONE (09:55)
[2017-08-05] MEDS ORDERED: ONDANSETRON HCL 4 MG/2 ML VIAL ONE (10:02)
[2017-08-05] MEDS ORDERED: FUROSEMIDE 40 MG/4 ML VIAL ONE (10:37)
[2017-08-05] MEDS ORDERED: TICAGRELOR 90 MG TAB PO ONE ×2 (10:41)
[2017-08-05] MEDS ORDERED: BIVALIRUDIN INJ 250 MG in SODIUM CHLORIDE 0.9% INJ 50 ML IV SCH (10:50)
[2017-08-05] MEDS ORDERED: MISC INFORMATION XX ONE (11:00)
[2017-08-05] MEDS ORDERED: ATROPINE SULFATE 1 MG/ML VIAL IV PUSH PRN (11:00)
[2017-08-05] MEDS ORDERED: SODIUM CHLORIDE 0.9% FLUSH 10 ML FLUSH IV FLUSH PRN (11:00)
[2017-08-05] MEDS ORDERED: ONDANSETRON HCL 4 MG/2 ML VIAL IV PUSH PRN (11:00)
[2017-08-05] MEDS ORDERED: BACITRACIN OINT 0.9 GM PKT TOP ONE (11:00)
--- NOTE | 2017-08-05 11:01 | CATHPROC ---
TrackIF HIS Report Study Information Study Number Admission Scheduled Start Study Start [id number] Jul 29 2017 7:44PM 08/05/2017 Aug 05 2017 7:01AM [place] [facility] Cardiac Catheterization Admit Source Facility Department Other [facility] - Seafood Service Team Member Physician and Clinical Staff Initial Marco Moreira Screw Machine Tool Setter Zuleima Agarwal,BENITO Other Kelsey Victor ,RT(R) Recorder Enoch OLIVER, Barbara Brunner,RT(R) Procedures Performed Procedure Location (Site) Vessel Name Coronary Angiograms LCA Left Coronary Coronary Angiograms EWING-LAD Left Coronary Coronary Angiograms SVG-PDA Right Coronary Coronary Angiograms Gft. Stump 1 SVG Graft Drug Eluting Inflatio CIRC Prox CIRC Drug Eluting Inflatio Lft Main Ost Left Coronary IVUS CIRC Prox CIRC L Heart Cath Pacemaker Temp Fem Vein (right) Femoral Vein PTCA CIRC Prox CIRC Rotablator Lft Main Ost Left Coronary Stent CIRC Prox CIRC Wire insertion Fem Art (right) Femoral Art Equipment Time Cornice Maker Description Size Mfg Part Number Used/Scraped [id number] 09:48 [employer] WIRE, ASAAL GRANDSLAM 300CM 300CM Used *[id number] 08:49 YOO HIRSCH PACING CATHETER J CURVE FR 5 Used *[id number] TRANSDUCER, TRUWAVE [id number] 07:53 YOO HIRSCH * Used W/STOCKCOCK *[id number] 09:21 [employer]OSTON SCI[employer] CATHETER, FR1.5 ROTA-LINK FR 1.5 Used *[id number] 09:06 [employer] WIRE, ROTA-WIRE FLOPPY 330CM 330CM Used *[id number] INTRODUCER SET, [id number] 07:54 [employer]. FR 5 Used MICROPUNCTURE *[id number] 534-660T *[id number] 534-617T *[id number] 534-672T *8820734 534-642T *0071516 670-054-00 *5312730 670-056-00 *5673515 778-056-00 *[id number] [id number] 07:53 MEDLINE INDUSTRIES PACK, CCL CUSTOM * Used *[id number] 07:53 MEDLINE PACER PEN, SKIN DUAL W/ RULER * Used *[id number] BALLOON, 1.25 X 15MM [id number] 09:46 MEDTRONIC 15MM Used SPRINTER LEGEND OTW *6915152 [id number] 09:55 MEDTRONIC BALLOON, 2.5 X 20MM EUPHORA 20MM Used *[id number] BALLOON, 3.5 X 15MM NC [id number] 10:21 MEDTRONIC 15MM Used EUPHORA *[id number] 10:03 MEDTRONIC STENT, 2.75 18MM JORGE LUIS 2.75 18MM Used *7054872 [id number] 09:38 MEDTRONIC STENT, 2.75 18MM JORGE LUIS 2.75 18MM Used *[id number] [id number] 10:08 MEDTRONIC STENT, 3.5 15MM JORGE LUIS 3.5 15MM Used *0845218 [id number] 09:00 Spins.FM MEDICAL 30 ASHUTOSH INDEFLATOR Used *[id number] 08:48 Spins.FM MEDICAL SHEATH, FR6.5 PRELUDE 11CM FR 6.5 038ACT Used *4758127 [id number]- 07:53 Spins.FM MEDICAL SHEATH, FR6.5 PRELUDE 11CM FR 6.5 038ACT Used *4432632 [id number] 07:53 Spins.FM MEDICAL WIRE, 3MMJ .035 180CM 180CM Used *[id number] [id number] 07:53 NAMIC MANIFOLD, 4 PORT * Used *[id number] 07:53 NYCOMED OMNIPAQUE, 350 MG, 100ML 100ML [id number] Used 09:07 NYCOMED OMNIPAQUE, 350 MG, 150ML 150ML [id number] Used 09:07 NYCOMED OMNIPAQUE, 350 MG, 150ML 150ML [id number] Used [id number] 07:53 [employer] BLANKET,WARM AIR CCL * Used *[id number] [id number] 08:55 TERUMO MEDICAL SHEATH, FR7 TERUMO (10CM) FR 7 Used *[id number] CATHETER, NAKNEK EYE FLANDREAU [id number] 10:18 VOLCANO Used IMAGING *[id number] Equipment Model, Serial, Lot Number and Expiration Data Description Model Number Serial Number Lot Number Expiration Date STENT, 2.75 18MM JORGE LUIS [id number] 02-12-2019 STENT, 2.75 18MM JORGE LUIS [id number] 04-02-2019 STENT, 3.5 15MM JORGE LUIS [id number] 03-10-2019 WIRE, ROTA-WIRE FLOPPY 330CM [id number] 12-18-2018 History: Current Medications Medication Dosage/Unit Route Frequency Last Date/Time Taken Statins (any) Beta Rae Imdur ASA History: Allergies Allergy Reaction NKDA History: Risk Factors Family History of Hypertension Dyslipidemia Previous DE Previous Heart Failure Premature CAD Yes No No No No Prior Valve Prior PCI Prior CABG Prior CABGDate Surgery No No Yes 05/04/2005 Cerebrovascular Peripheral Artery Chronic Lung On Dialysis Diabetes Diabetes Therapy Disease Disease Disease No No Yes Yes Yes Oral History: Stress Tests Stress or Imaging Studies Performed No Labs Hgb (g/dl) Hct (%) WBC (l/cumm) Platelets (thousands) 11.60-17.00 35.00-51.00 4.00-11.00 150.00-450.00 11.1 34.1 12.3 265 Glucose (mg/dl) BUN (mg/dl) Creatinine (mg/dl) BUN:Creatinine (1:x) 74.00-106.00 7.00-18.00 0.50-1.30 10.00-20.00 134 39 1.7 22.9 Na (meq/l) K (meq/l) 136.00-145.00 3.50-5.10 137 4.6 INR (PTT:PT) 0.90-1.10 1 Troponin I (ng/ml) CPK (u/l) 0.02-0.05 26.00-308.00 0.8 173 Medication Medication Total Dose (Bolus/Oral) Medication Total Dosage/Unit 1% XYLOCAINE 10 mL ANGIOMAX BOLUS 14 mL BRILINTA 180 mg FENTANYL 50 mcg LASIX 40 mg MORPHINE 8 mg VERSED 2 mg ZOFRAN 8 mg Medications (Bolus/Oral) Medication Time Given Dosage/Unit Administered By Reason MORPHINE 08/05/2017 7:56:26 AM 4 mg Zuleima Agarwal 4 mg MORPHINE given by Zuleima Agarwal, RN via Peripheral IV. Ordered by Marco Vaca. 1% XYLOCAINE 08/05/2017 7:58:11 AM 10 mL Marco Vaca 10 mL 1% XYLOCAINE given by Marco Vaca in Right Groin via Subcutaneous. Ordered by Marco Vaca. VERSED 08/05/2017 7:59:42 AM 1 mg Zuleima Agarwal 1 mg VERSED given by Zuleima Agarwal RN via Peripheral IV. Ordered by Marco Vaca. MORPHINE 08/05/2017 8:29:48 AM 4 mg Zuleima Agarwal 4 mg MORPHINE given by Zuleima Agarwal RN via Peripheral IV. Ordered by Marco Vaca. ANGIOMAX BOLUS 08/05/2017 9:06:52 AM 14 mL Zuleima Agarwal 14 mL ANGIOMAX BOLUS given by Zuleima Agarwal RN via Peripheral IV. Ordered by Marco Vaca. VERSED 08/05/2017 9:54:27 AM 1 mg Zuleima Agrawal 1 mg VERSED given in lab by Zuleima Agarwal RN via Peripheral IV. Ordered by Marco Vaca. FENTANYL 08/05/2017 9:55:43 AM 50 mcg Zuleima Agarwal 50 mcg FENTANYL given in lab by Zuleima Agarwal RN via Peripheral IV. Ordered by Marco Vaca. ZOFRAN 08/05/2017 10:04:29 AM 4 mg Zuleima Agarwal 4 mg ZOFRAN given in lab by Zuleima Agarwal RN via Central IV. Ordered by Marco Vaca. ZOFRAN 08/05/2017 10:04:53 AM 4 mg Zuleima Agarwal 4 mg ZOFRAN given in lab by Zuleima Agarwal RN via Central IV. Ordered by Marco Vaca. LASIX 08/05/2017 10:39:33 AM 40 mg Zuleima Agarwal 40 mg LASIX given in lab by Zuleima Agarwal RN via Peripheral IV. Ordered by Marco Vaca. BRILINTA 08/05/2017 10:40:53 AM 180 mg Zuleima Agarwal 180 mg BRILINTA given in lab by Zuleima Agarwal RN. Ordered by Marco Vaca. Medication (Drip) Medication Time Given Dosage/Unit Concentration/Unit Diluent (ml) Solution ANGIOMAX DRIP 08/05/2017 9:08:11 AM 1.75 mg/kg/hr 250 mg 50 NaCl .9 1.75 mg/kg/hr ANGIOMAX DRIP given by Zuleima Agarwal RN via Peripheral IV. Pump/Drip Flow = 31.5 ml/ hr using NaCl .9 with a concentration of 250 mg in 50 ml. Ordered by Marco Vaca. ELEN-SYNEPHRINE 08/05/2017 9:54:23 AM 50 mcg 50 mcg ELEN-SYNEPHRINE given in lab by Zuleima Agarwal, RN via Peripheral IV. Ordered by Marco Vaca . ELEN-SYNEPHRINE 08/05/2017 9:55:09 AM 50 mcg 50 mcg ELEN-SYNEPHRINE given in lab by Zuleima Agarwal, RN via Peripheral IV. Ordered by Marco Vaca . Initial Case Assessment Cardiovascular HR NIBP Chest Pain 74 128/77 0 Edema Present Skin color Skin None Normal Warm Dry Circulatory - Right Pulses Dorsalis Pedis Femoral 1 1 Scale (0,1,2,3,4,d) Circulatory - Left Pulses Dorsalis Pedis Femoral 1 1 Scale (0,1,2,3,4,d) Neurological State Oriented to time-place- Alert Moves all extremities person Respiration - General SpO2 (%) 93 Chronological Log Time Study Chronological Log 7:19:43 Patient arrived via Bed. 7:19:45 Patient Name, D.O.B, / Armband Verified By R.N. 7:19:48 Consent signed by the physician and the patient and verified by the Seafood Service Team Member staff. 7:19:50 Pre-op and post- op instructions given; patient acknowledges understanding of instructions. 7:19:54 Patient has been NPO for More than 6Hrs. 7:32:50 History and physical on the chart or being dictated. 7:34:32 Skin Breakdown- none reported by patient Vitals capture started with the following parameters, Patient=Adult, Interval=5 min, Initial P qqvfofg=304 mmHg, 7:34:39 Deflation Rate=5 mmHg, Cuff placed on Unknown 7:35:13 Darren Prominences Protected 7:35:19 HR=88 bpm, YVAH=422/77 mmhg, Resp=17 B/min, Julissa=10 7:40:55 HR=73 bpm, DBPN=677/62 mmhg, SpO2=93.0 %, Resp=18 B/min, Ziegler=2 7:42:40 Reference ECG taken Assessment: Initial Case, HR=74 BPM, HWCQ=330/77 mmhg, Chest Pain=0, Edema=None, Color=Normal, S kin = Warm, Dry Right Pulses: Christian Ped=1, Femoral=1 7:43:18 Left Pulses: Christian Ped=1, Femoral=1 Neurological: State=Alert, Ox3, ZUNIGA Respiration: SpO2=93 % 7:44:06 Bilateral groins prepped with 2% chlorhexidine, and draped after a 3 minute waiting time. 7:45:17 HR=86 bpm, CBVM=358/81 mmhg, SpO2=96.0 %, Resp=21 B/min, Ziegler=2 7:47:47 MD paged 7:48:58 Pressure channel 1 zeroed. 7:50:18 HR=82 bpm, YQKT=548/81 mmhg, Resp=14 B/min, Ziegler=2 7:51:06 MD arrived. 7:55:21 HR=71 bpm, DVXP=094/68 mmhg, SpO2=97.0 %, Resp=17 B/min, Ziegler=2 7:56:26 4 mg MORPHINE given by Zuleima Agarwal, RN via Peripheral IV. Ordered by Marco Vaca. Time Out. Correct patient, correct procedure, correct physician, power injector loaded, or not l oaded with contrast with 7:57:09 surgical team present. Time Out Concurred by MD and individual staff in procedure. 7:58:00 Case Start 7:58:11 10 mL 1% XYLOCAINE given by Marco Vaca in Right Groin via Subcutaneous. Ordered by Marco Vaca. 7:59:42 1 mg VERSED given by Zuleima Agarwal, RN via Peripheral IV. Ordered by Marco Vaca. 8:00:20 HR=73 bpm, ENTD=550/79 mmhg, SpO2=95.0 %, Resp=28 B/min, Ziegler=2 8:01:10 Access site was Right Femoral Artery. A INTRODUCER SET, MICROPUNCTURE FR 5 was advanced into the Fem Art (right) using the Modified Se anne 8:01:28 technique. A SHEATH, FR6.5 PRELUDE 11CM FR 6.5 was exchanged in the Fem Art (right). This was necessary in order to 8:01:45 accomodate a larger catheter. A MPA-2 INFINITI CATHETER FR 6 was advanced over a wire. 8:02:10 Recorded Pressure: Ao, HR=79, Condition=Condition 1 8:02:45 (Aorta) Ao 123/66/92 8:04:45 The SVG-PDA was injected and visualized at various angles. OMNIPAQUE, 350 MG, 100ML 100ML us ed. 8:05:19 HR=72 bpm, UAMO=586/72 mmhg, SpO2=91.0 %, Resp=12 B/min, Ziegler=4 After removing the current catheter a LCB INFINITI CATHETER FR 6 was advanced over a WIRE, 3MMJ .035 180CM 8:06:51 180CM. 8:10:11 The Gft. Stump 1 was injected and visualized at various angles. 8:10:22 HR=78 bpm, GHLR=479/79 mmhg, SpO2=93.0 %, Resp=11 B/min, Ziegler=4 After removing the current catheter a JL 4.5 INFINITI CATHETER FR 6 was advanced over a WIRE, 3M MJ .035 180CM 8:14:32 180CM. 8:15:51 The LCA was injected and visualized at various angles. OMNIPAQUE, 350 MG, 100ML 100ML used. 8:15:56 HR=81 bpm, XJVB=576/80 mmhg, SpO2=95.0 %, Resp=16 B/min, Ziegler=4 8:20:20 HR=72 bpm, TAWG=164/76 mmhg, SpO2=94.0 %, Resp=11 B/min, Ziegler=4 8:25:21 HR=78 bpm, YJUL=811/85 mmhg, SpO2=92.0 %, Resp=14 B/min, Ziegler=4 After removing the current catheter a MISHA INFINITI CATHETER FR 6 was advanced over a WIRE, 3MMJ .035 180CM 8:26:51 180CM. 8:29:48 4 mg MORPHINE given by Zuleima Agarwal, BENITO via Peripheral IV. Ordered by Marco Vaca. 8:29:51 The EWING-LAD was injected and visualized at various angles. OMNIPAQUE, 350 MG, 100ML 100ML u sed. 8:30:24 HR=76 bpm, YOVF=136/73 mmhg, SpO2=93.0 %, Resp=15 B/min, Ziegler=4 8:35:15 Catheter was removed 8:35:21 HR=96 bpm, BMYA=108/81 mmhg, SpO2=93.0 %, Resp=11 B/min, Ziegler=4 8:40:27 HR=71 bpm, PDBC=491/75 mmhg, SpO2=94.0 %, Resp=2 B/min, Ziegler=4 8:45:30 HR=80 bpm, STBX=582/65 mmhg, SpO2=93.0 %, Resp=11 B/min, Ziegler=4 8:47:22 Access site was Right Femoral Vein. A SHEATH, FR6.5 PRELUDE 11CM FR 6.5 was advanced into the Fem Vein (right) using the Modified Se anne 8:47:30 technique. 8:49:31 A PACING CATHETER J CURVE FR 5 was advanced to the right ventricle. Rate = 50, Output = 0.2, MA = 5. 8:50:21 HR=56 bpm, XHIU=288/80 mmhg, SpO2=94.0 %, Resp=17 B/min, Ziegler=4 8:54:57 Lead placement verified under fluoroscopy A SHEATH, FR7 TERUMO (10CM) FR 7 was exchanged in the Fem Art (right). This was necessary in ord er to 8:55:23 accomodate a larger catheter. 8:55:24 HR=67 bpm, VBRY=334/76 mmhg, SpO2=93.0 %, Resp=9 B/min, Ziegler=4 8:58:41 A XB 4.0 GUIDE CATHETER FR 7 was advanced over a wire. 9:00:27 HR=77 bpm, NUBY=963/78 mmhg, SpO2=92 %, Resp=14 B/min, Ziegler=4 After removing the current catheter a XB 4.0 GUIDE CATHETER FR 6 was advanced over a WIRE, 3MMJ .035 180CM 9:03:44 180CM. 9:05:28 HR=71 bpm, INJA=650/80 mmhg, SpO2=95.0 %, Resp=14 B/min, Ziegler=4 9:06:52 14 mL ANGIOMAX BOLUS given by Zuleima Agarwal, BENITO via Peripheral IV. Ordered by Deann Vaca After removing the current catheter a XB 3.5 GUIDE CATHETER FR 6 was advanced over a WIRE, 3MMJ .035 180CM 9:07:26 180CM. 1.75 mg/kg/hr ANGIOMAX DRIP given by Zuleima Agarwal, BENITO via Peripheral IV. Pump/Drip Flow = 31. 5 ml/hr using 9:08:11 NaCl .9 with a concentration of 250 mg in 50 ml. Ordered by Marco Vaca. 9:10:31 HR=96 bpm, FNZZ=719/69 mmhg, SpO2=93.0 %, Resp=16 B/min, Ziegler=4 9:11:11 A WIRE, ROTA-WIRE FLOPPY 330CM 330CM was inserted via Fem Art (right). 9:15:28 HR=83 bpm, FJAF=119/84 mmhg, SpO2=94.0 %, Resp=16 B/min, Ziegler=4 9:20:29 HR=91 bpm, QTQP=537/81 mmhg, SpO2=92.0 %, Resp=11 B/min 9:25:28 HR=72 bpm, PFZE=005/88 mmhg, SpO2=93.0 %, Resp=16 B/min, Ziegler=4 9:27:20 A CATHETER, FR1.5 ROTA-LINK FR 1.5 was advanced throuogh the XB 3.5 GUIDE CATHETER FR 6 into the Lft Main Ost. 9:30:31 HR=75 bpm, BBAM=939/74 mmhg, SpO2=93.0 %, Resp=7 B/min, Ziegler=4 A CATHETER, FR1.5 ROTA-LINK FR 1.5 was advanced through the XB 3.5 GUIDE CATHETER FR 6 over a WI RE, ROTA- 9:31:19 WIRE FLOPPY 330CM 330CM. After placement in the Lft Main Ost the rotoblator was set from ~HI RPM~,000 rpm to ~LOWRPM~,000 rpm and was passed ~PASSES~ times through the lesion. A CATHETER, FR1.5 ROTA-LINK FR 1.5 was advanced through the XB 3.5 GUIDE CATHETER FR 6 over a WI RE, ROTA- 9:32:51 WIRE FLOPPY 330CM 330CM. After placement in the Lft Main Ost the rotoblator was set from ~HI RPM~,000 rpm to ~LOWRPM~,000 rpm and was passed ~PASSES~ times through the lesion. 9:35:28 HR=78 bpm, NIBP=97/63 mmhg, SpO2=90.0 %, Resp=10 B/min, Ziegler=4 9:37:08 Jackson removed A STENT, 2.75 18MM JORGE LUIS 2.75 18MM was advanced through a XB 3.5 GUIDE CATHETER FR 6 over a WIRE, ROTA- 9:40:16 WIRE FLOPPY 330CM 330CM. 9:40:27 HR=78 bpm, NIBP=82/55 mmhg, Resp=11 B/min, Ziegler=4 9:45:22 HR=78 bpm, NIBP=86/61 mmhg, SpO2=89.0 %, Resp=14 B/min, Ziegler=4 9:45:52 Stent not deployed. Stent removed and intact. A BALLOON, 1.25 X 15MM SPRINTER LEGEND OTW 15MM was inserted over WIRE, ROTA-WIRE FLOPPY 330CM 3 30CM 9:46:02 via the Lft Main Ost. 9:50:10 The previous wire was exchanged for a WIRE, ASAHI GRANDSLAM 300CM 300CM. 9:50:27 HR=78 bpm, NIBP=78/53 mmhg, SpO2=90 %, Resp=10 B/min, Ziegler=4 9:50:30 Balloon Removed. 9:54:23 50 mcg ELEN-SYNEPHRINE given in lab by Zuleima Agarwal RN via Peripheral IV. Ordered by Marco Roth. 9:54:27 1 mg VERSED given in lab by Zuleima Agarwal RN via Peripheral IV. Ordered by Marco Vaca. A BALLOON, 2.5 X 20MM EUPHORA 20MM was inserted over WIRE, ASAHI GRANDSLAM 300CM 300CM via the Fem Art 9:54:51 (right). 9:55:09 50 mcg ELEN-SYNEPHRINE given in lab by Zuleima Agarwal RN via Peripheral IV. Ordered by Marco Roth. 9:55:24 HR=78 bpm, NIBP=78/53 mmhg, SpO2=90 %, Resp=18 B/min, Ziegler=4 9:55:43 50 mcg FENTANYL given in lab by Zuleima Agarwal RN via Peripheral IV. Ordered by Yara Vaca. A BALLOON, 2.5 X 20MM EUPHORA 20MM over a WIRE, ASAHI GRANDSLAM 300CM 300CM in the CIRC Prox wa s 9:56:29 inflated using a 30 ASHUTOSH INDEFLATOR at 8 ashutosh for 25 sec. A BALLOON, 2.5 X 20MM EUPHORA 20MM over a WIRE, ASAHI GRANDSLAM 300CM 300CM in the CIRC Prox wa s 9:57:17 inflated using a 30 ASHUTOSH INDEFLATOR at 8 ashutosh for 30 sec. 9:58:24 Balloon Removed. An STENT, 2.75 18MM JORGE LUIS 2.75 18MM Drug eluding Stent was inserted through a XB 3.[address] FR 6 10:00:30 over a WIRE, ASAAL GRANDSLAM 300CM 300CM. A STENT, 2.75 18MM JORGE LUIS 2.75 18MM was deployed using a 30 ASHUTOSH INDEFLATOR at 6 atmospheres for 2 0 seconds in 10:00:49 the CIRC Prox. 10:00:54 HR=78 bpm, NRWE=321/65 mmhg, SpO2=87.0 %, Resp=11 B/min, Ziegler=4 A STENT, 2.75 18MM JORGE LUIS 2.75 18MM was advanced through a XB 3.5 GUIDE CATHETER FR 6 over a WIRE , [facility] 10:03:43 GRANDSLAM 300CM 300CM. 10:04:29 4 mg ZOFRAN given in lab by Zuleima Agarwal, BENITO via Central IV. Ordered by Marco Vaca. A STENT, 2.75 18MM JORGE LUIS 2.75 18MM was deployed using a 30 ASHUTOSH INDEFLATOR at 14 atmospheres for 40 seconds 10:04:37 in the CIRC Prox. 10:04:53 4 mg ZOFRAN given in lab by Zuleima Agarwal, RN via Central IV. Ordered by Marco Vaca. 10:05:28 HR=78 bpm, NIBP=86/62 mmhg, SpO2=86.0 %, Resp=17 B/min, Ziegler=3 A STENT, 3.5 15MM JORGE LUIS 3.5 15MM was advanced through a XB 3.5 GUIDE CATHETER FR 6 over a WIRE, ASAHI 10:08:02 GRANDSLAM 300CM 300CM. A STENT, 3.5 15MM JORGE LUIS 3.5 15MM was deployed using a 30 ASHUTOSH INDEFLATOR at 18 atmospheres for 30 seconds in 10:09:37 the Lft Main Ost. 10:10:25 HR=78 bpm, NIBP=79/57 mmhg, SpO2=84.0 %, Resp=16 B/min, Ziegler=3 10:15:53 HR=78 bpm, PMVM=219/70 mmhg, SpO2=87.0 %, Resp=15 B/min, Ziegler=3 10:17:47 An CATHETER, NAKNEK EYE FLANDREAU IMAGING was advanced through the lesion. Images saved on to IVUS hard drive 10:20:30 HR=65 bpm, EWJF=695/66 mmhg, SpO2=88.0 %, Resp=11 B/min, Ziegler=4 10:22:15 IVUS catheter removed A BALLOON, 3.5 X 15MM NC EUPHORA 15MM was inserted over WIRE, ASANENA GRANDSLAM 300CM 300CM via t he CIRC 10:22:18 Prox. 10:24:17 Balloon Removed. 10:24:27 Wire removed 10:25:25 Catheter was removed 10:25:33 HR=65 bpm, JWBI=504/70 mmhg, SpO2=88.0 %, Resp=19 B/min, Ziegler=4 10:28:38 Case End 10:28:43 TEMPORARY PACING WIRE REMOVED 10:30:09 In the Fem Art (right) the SHEATH, FR7 TERUMO (10CM) FR [address] by Yamileth Rodriguez RT(R). 10:30:20 In the Fem Vein (right) the SHEATH, FR6.5 PRELUDE 11CM FR 6.[address] by Barbara Payne RT(R). 10:30:32 HR=65 bpm, OJGZ=174/74 mmhg, SpO2=85.0 %, Resp=22 B/min, Ziegler=4 10:31:58 Sterile dressing applied to site 10:32:01 No case complications noted. 10:35:23 Bedside Report will be given. 10:35:25 HR=71 bpm, HIDE=226/80 mmhg, SpO2=77.0 %, Resp=20 B/min 10:39:33 40 mg LASIX given in lab by Zuleima Agarwal, RN via Peripheral IV. Ordered by Deann Vaca 10:40:53 180 mg BRILINTA given in lab by Zuleima Agarwal, RN. Ordered by Marco Vaca. 10:41:07 HR=72 bpm, HPBP=348/89 mmhg, SpO2=89.0 %, Resp=20 B/min, Ziegler=4 10:45:37 HR=78 bpm, QPVE=655/75 mmhg, SpO2=97.0 %, Resp=21 B/min, Ziegler=2 10:49:07 CIC called. Spoke to Vivi 10:50:30 HR=76 bpm, BTKN=047/81 mmhg, SpO2=99.0 %, Resp=10 B/min 10:50:52 Vitals capture stopped. 10:56:58 [facility] to [facility] 10:57:01 A Left Heart Cath was performed. End Study - Contrast Media Used In Study Contrast Total Opened (mL) Total Used (mL) Total Wasted (mL) Omnipaque 200 200 0 End Study - Maximum Contrast Load Max Contrast Load (mL) 264.7 End Study - Radiation Exposure Fluoro Time (minutes) 36.8 End Study - Patient Disposition Complications Transferred To Interventional Outcome No Critical Care Bed successful
--- NOTE | 2017-08-05 11:15 | MA ---
cc: Marco Vaca MD DATE: 08/05/2017 PROCEDURE PERFORMED: Coronary angiography, bypass graft angiography, rotational atherectomy of the left main coronary artery, balloon angioplasty and drug-eluting stent implantation in the proximal circumflex artery and left main coronary artery, temporary transvenous pacemaker via the right femoral vein. DESCRIPTION OF PROCEDURE: The patient was brought to the cardiac prosthetics lab technician in a fasting state. The right groin was prepped in sterile fashion. Using a micropuncture set, access was obtained in the right femoral artery and a 6 [place] sheath placed. Only a single stick was needed. Angiography was obtained of the vein graft to the right coronary artery first. Angiography of the occluded vein graft to the circumflex was performed second. Angiography of the huslia left coronary artery was then performed. This was with a left 4.5 Katie. Angiography of the left internal mammary bypass was performed using an MISHA catheter. Films were studied. Decided the patient needed intervention on the left main. Intravenous Angiomax was started. Access was obtained in the right femoral vein. A 5 [place] balloon tipped pacemaker was inserted into the right ventricle and backup pacing initiated. A 7 [place] XB4 guide would not adequately engage. A 6 [place] XB4 guide seemed large, so I went to a 6 [place] XB3.5 guide without sideholes and was able to engage adequately. A Rotafloppy wire was then used to pass the left main stenosis and it went into the circumflex vessel. The wire was carefully positioned distally in the circumflex. Rotational atherectomy was then performed using a 1.5 mm bur. Angiography now demonstrated a dissection in the proximal circumflex vessel, which was markedly tortuous. I tried to direct stent, but the stent would not cross. I used a 1.5 mm Sprinter over the wire balloon to exchange to a [place] wire into the distal circumflex vessel. Balloon angioplasty was obtained of the proximal circumflex with a 2.5 mm balloon. I then proceeded in placing 3 stents sequentially. Most distal stent that goes out a ways into the circumflex artery was a 2.75 x 18 mm Tino stent at 6 atmospheres. Overlapping with this was a 2.75 x 18 mm Fellows stent at 14 atmospheres. Overlapping with this extending out to the ostium of the left main was a 3.5 x 15 mm Tino balloon deployed at 18 atmospheres. Angiography demonstrated optimal positioning of the left main stent. Intravascular ultrasound was performed. I was considering doing repeat balloon angioplasty the process of catheter exchanges and loss of wire position. Angiographic result looks excellent. She became unstable during the procedure with drops in blood pressure and drops in saturation and drops in heart rate. The temporary pacemaker took care of the latter. By the end of the case, she was in her own rhythm. Blood pressure came up over 100 without pharmacological assistance. Sats diminished at the end of the case. She received 40 of Lasix IV. Total contrast load was 200 mL. Total fluids administered was 1 liter of normal saline. FINDINGS: 1. HEMODYNAMICS: Aortic pressure is 123/66 with a mean of 92. 2. CORONARY ANGIOGRAPHY: Left main coronary artery has a 99% ostial stenosis, bifurcates into the LAD and circumflex vessels. The LAD has smooth 20% stenosis. It feeds a very large diagonal branch, which has about 40% mid disease and somewhat diffuse disease. There is competitive flow in the LAD. The LAD itself beyond the diagonal probably has 90% stenosis with competitive flow from the internal mammary artery. The circumflex artery has occlusion of the graft. Circumflex artery has 60% proximal stenosis, which is calcified on a curve. It gives off a few small marginal branches. The right coronary artery is totally occluded proximally. 3. BYPASS GRAFTS: Left internal mammary bypass graft is widely patent to the mid LAD. There is a widely patent vein graft to the posterior descending artery branch of the right coronary artery. Graft shows diffuse disease. Worst part of this is in the middle of the graft where it is about 30% stenosed. The saphenous vein graft to the circumflex artery demonstrates sequential 99% subtotal lesions with only JATIN 1 flow. 4. RESULTS OF STENTING: Following stenting of the left main and proximal circumflex artery, 0% residual stenosis had been achieved with scientology of grade JATIN 3 flow. CONCLUSIONS: 1. Three-vessel coronary artery disease. 2. Continued patency of the left internal mammary artery to the left anterior descending and a saphenous vein graft to the right coronary artery. 3. Probably recent closure of the vein graft to the circumflex artery. 4. Critical left main disease, now successfully stented. 5. Dissection of the proximal circumflex artery with stenosis, now successfully stented. PLAN: The patient is being given Brilinta. Will continue aspirin, Brilinta. Angiomax will run in and then be stopped and then her sheaths will be pulled out manually. She will be readmitted back to her ICU bed to carefully watch her renal function. MD MELL Landon/LILIA , 10:47 AM , 11:14 AM
[2017-08-05] MEDS ORDERED: IOHEXOL 350 MG/ML 100 ML BTL (for Cath Lab) OTHER ONE (11:23)
[2017-08-05] MEDS: SODIUM CHLORIDE 0.9% FLUSH 10 ML FLUSH IV FLUSH SCH ×2 (11:55→20:12)
--- NOTE | 2017-08-05 12:54 | EKG ---
Date Performed: 08/05/2017 Time Performed: 11:41:04 PTAGE: 71 years EKG: ATRIAL FIBRILLATION MINIMAL ST DEPRESSION ABNORMAL RHYTHM ECG PREVIOUS TRACING : 07/30/2017 05.50 DOCTOR: Nicola Garcia Interpretating Date/Time 08/05/2017 12:54:12
--- NOTE | 2017-08-05 15:08 | HHI.FPPN ---
Subjective Remarks Patient seen and examined after catheterization procedure today. Patient seems tired and says that she is not sure what happened and the procedure but she feels that it was a very long procedure. Patient denies any current chest pain or shortness of breath. Patient denies any dizziness. Vital signs stable. Objective Vitals Vital Signs Date Time Temp Pulse Resp B/P (MAP) Pulse Ox O2 Delivery O2 Flow Rate FiO2 08/05/17 14:00 125 08/05/17 12:30 86 17 144/70 (94) 95 08/05/17 12:00 98.0 85 21 133/60 (84) 100 147/72 (97) 08/05/17 12:00 85 08/05/17 11:45 104 34 147/75 (99) 96 08/05/17 11:30 76 19 151/75 (100) 100 08/05/17 11:15 85 26 151/72 (98) 90 08/05/17 07:00 84 28 105/63 (77) 96 08/05/17 07:00 84 28 105/63 (77) 96 08/05/17 07:00 96 Nasal Cannula 4.00 08/05/17 06:00 77 08/05/17 04:00 98.2 72 12 105/62 (76) 97 08/05/17 04:00 72 08/05/17 02:00 76 08/05/17 00:00 98.9 79 13 108/59 (75) 97 08/05/17 00:00 79 08/04/17 22:00 78 08/04/17 20:00 98 08/04/17 20:00 98.0 98 37 121/73 (89) 96 08/04/17 19:09 97 Nasal Cannula 4.00 08/04/17 19:00 98 Nasal Cannula 4.00 08/04/17 18:00 75 08/04/17 16:00 76 08/04/17 16:00 97.7 76 21 90/57 (68) 97 I/O 08/04/17 08/04/17 08/04/17 08/05/17 08/05/17 08/05/17 07:00 15:00 23:00 07:00 15:00 23:00 Intake Total 480 ml 850 ml 480 ml 1042 ml Output Total 1400 ml Balance 480 ml -550 ml 480 ml 1042 ml Intake Oral 480 ml 850 ml 480 ml IV Total 1042 ml Output Urine Total 1400 ml # Voids 4 3 # Bowel Movements 3 1 2 Result Diagram: 08/05/17 0414 08/05/17 0411 Objective Remarks GENERAL: This is a well-nourished, well-developed patient, in no apparent distress. NC in place and 5 L and sitting upright in bed comfortably. Speaking in full sentences SKIN: No rashes, ecchymoses or lesions. Cool and dry. HEAD: Atraumatic. Normocephalic. EYES: Pupils equal round and reactive. Extraocular motions intact. No scleral icterus. No injection or drainage. ENT: Nose without bleeding or drainage. CARDIOVASCULAR: Irregular rate and rhythm without murmurs. RESPIRATORY: Clear to auscultation. No wheezes, rales, or rhonchi. GASTROINTESTINAL: Obese abdomen, soft, non-tender, nondistended. No hepato- splenomegaly, or palpable masses. No guarding. MUSCULOSKELETAL: Extremities without clubbing or cyanosis, +2 pedal edema noted BL -unchanged from prior exam. No joint tenderness, effusion, or edema noted. No calf tenderness. +2 DP pulses BL. NEUROLOGICAL: Awake and alert. Cranial nerves II through XII intact. Motor and sensory grossly within normal limits. Five out of 5 muscle strength in all muscle groups. Normal speech. A/P Assessment and Plan Patient is a 71-year-old female with past medical history of CAD s/p CABG, PVD, DM, HTN, COPD brought to the ED via [facility] after she developed sxs of severe chest pain and shortness of breath. In he ED patient was found to be in A. fib with RVR, elevated troponin of 0.39 with heart rate ranging from 110--160s and oxygen saturations in the low 90s. Patient admitted for management of NSTEMI and respiratory distress. Nephrology has been consulted for MARSHALL on CKD, thought to be due to contrast for imaging. Creatinine downtrending over last day, and authorization completed on 08/05. Catheterization reveals three-vessel coronary artery disease, with critical left main disease stented and proximal circumflex artery stented. Discharge Planning Patient needs heart cath prior to discharge Problem List: (1) NSTEMI (non-ST elevated myocardial infarction) ICD Codes: I21.4 - Non-ST elevation (NSTEMI) myocardial infarction Status: Acute Plan: Catheterization reveals three-vessel coronary artery disease, with critical left main disease stented and proximal circumflex artery stented. f/u recs of cardiology: continue Brilinta, Aspirin, f/u Creat EKG: Atrial fib with RVR On admission: troponin elevated at 0.39 -> 2.18 --> 1.76 In the ED started on heparin drip, given Cardizem 10 mg IV1, Lasix 40mg IV x1, morphine 4mg x1, nitroglycerin x1, solumedrol 125mg IV x1, duoneb x3. Bipap transitioned to NC in ED Placed on telemetry Imaging: CTA-No pulmonary embolus. Bibasilar areas of consolidation or atelectasis BNP of 493, no hx of CHF. Echocardiogram pending Cardiology consulted -cardiac catheterization 08/05, f/u recs Continuing Heparin drip protocol ASA 325mg po daily Lipitor 40mg po HS Cardizem for atrial fibrillation -240 mg daily Metoprolol 50 mg twice a day Nitroglycerin ointment every 6 scheduled. PT assessment stating patient will need home health with home PT at discharge. (2) Atrial fibrillation with RVR ICD Codes: I48.91 - Unspecified atrial fibrillation Plan: Rate and rhythm has been well controlled over last 24 hours On admission patient found to be in A. fib with RVR on EKG Unclear where this this is new onset although patient stated that she has palpitation "all the time". Patient not on warfarin or any other rhythm alternating agent. Patient asymptomatic, with HR ranging 110-160 on admission Patient received 1 dose of Cardizem 10 mg IV in ED Telemetry Will continue to monitor 07/30: Metoprolol Tartrate 25mg po BID, Metoprolol Tartrate 5mg IV push PRN for HR >110 07/31: HR 130s this AM. Cardizem 15mg IV x 1 then cardizem PO 240mg daily per cardiology 08/03: Increased dose of metoprolol to 40 mg twice a day, as well as diltiazem 360 mg daily. Having increased heart rate with minimal activity. (3) COPD (chronic obstructive pulmonary disease) ICD Codes: J44.9 - Chronic obstructive pulmonary disease, unspecified Status: Chronic Plan: Patient given solumedrol and 3 duoneb treatments in the ED Respiratory status improved but still requiring NC 4 L s/p treatment for COPD exacerbation Levaquin 750mg once, 500mg [id number] (due to creatinine clearance less than 30) for 5 days ( 07/30 - 08/04, 2 doses only given q48 for MARSHALL) Prednisone 50mg daily for 5 days (07/30- 08/04) Duonebs, Albuterol PRN Chest x-ray on admission 07/29: Mild bibasilar infiltrates, interstitial changes Chest x-ray on 08/02: Mild CHF with mild bilateral effusions, no consolidations (4) Diabetes ICD Codes: E11.9 - Type 2 diabetes mellitus without complications Plan: Home metformin medication held Placed on SSI low dose hypoglycemia protocol monitor AccuChecks BG range 120-244, patient on steroids (5) Hypertension ICD Codes: I10 - Essential (primary) hypertension Status: Chronic Plan: Borderline hypotensive since admission Holding home Amlodipine for now Metoprolol 50mg BID Cardizem 240mg PO daily (6) Chronic kidney disease (CKD) ICD Codes: N18.9 - Chronic kidney disease, unspecified Plan: Creat 1.72 (from 1.59 on admission) - received contrast with CT scan in ED Avoid nephrotoxic agents Will continue to trend daily - will need improvement prior to heart cath Careful PO hydration given CHF Appreciate the assistance of nephrology. (7) Nutrition, metabolism, and development symptoms ICD Codes: R63.8 - Other symptoms and signs concerning food and fluid intake Plan: Fluids: careful hydration given CHF, PO Electrolytes: replete as needed Nutrition: Heart healthy diet DVT ppx: hepatin ggt Problem Qualifiers (1) Diabetes: (2) Chronic kidney disease (CKD): Qualified Codes: N18.9 - Chronic kidney disease, unspecified Freya Rush MD R2 Aug 05, 2017 15:08
[2017-08-05] MEDS: DILTIAZEM HCL 60 MG TAB PO SCH ×2 (15:33→20:15)
[2017-08-05] MEDS: ACETAMINOPHEN 325 MG TAB PO PRN (15:33)
--- NOTE | 2017-08-05 16:18 | HHI.NPPN ---
Subjective General Problems: Heart Disease Renal Failure: Chronic, Acute, Stage III History of Present Illness 71-year-old female with past medical history of hypertension, diabetes mellitus, ischemic heart disease, post coronary artery bypass grafting, chronic obstructive pulmonary disease, diabetes mellitus, peripheral vascular disease, and possible chronic kidney disease, who came to the hospital with atrial fibrillation and rapid ventricular rate. I was called to see the patient because of elevated BUN and creatinine. The patient has a creatinine of 1.59 on admission. Additional Remarks Patient is lying flat complaining of back discomfort s/p heart cath. (Sujatha Barrett) Review of Systems General Constitutional: Fatigue (Sujatha Barrett) Respiratory Lungs: SOB Respiratory Remarks Mild (Sujatha Barrett) Cardiovascular Cardiac: MARQUEZ Cardiac Remarks No CP (Sujatha Barrett) Gastrointestinal GI Remarks No abdominal pain (Sujatha Barrett) Objective Data Data 08/05/17 08/06/17 19:00 07:00 Intake Total 1042 ml Balance 1042 ml IV Total 1042 ml Vital Signs Date Time Temp Pulse Resp B/P (MAP) Pulse Ox O2 Delivery O2 Flow Rate FiO2 08/05/17 14:00 125 08/05/17 12:30 86 17 144/70 (94) 95 08/05/17 12:00 98.0 85 21 133/60 (84) 100 147/72 (97) 08/05/17 12:00 85 08/05/17 11:45 104 34 147/75 (99) 96 08/05/17 11:30 76 19 151/75 (100) 100 08/05/17 11:15 85 26 151/72 (98) 90 08/05/17 07:00 84 28 105/63 (77) 96 08/05/17 07:00 84 28 105/63 (77) 96 08/05/17 07:00 96 Nasal Cannula 4.00 08/05/17 06:00 77 08/05/17 04:00 98.2 72 12 105/62 (76) 97 08/05/17 04:00 72 08/05/17 02:00 76 08/05/17 00:00 98.9 79 13 108/59 (75) 97 08/05/17 00:00 79 08/04/17 22:00 78 08/04/17 20:00 98 08/04/17 20:00 98.0 98 37 121/73 (89) 96 08/04/17 19:09 97 Nasal Cannula 4.00 08/04/17 19:00 98 Nasal Cannula 4.00 08/04/17 18:00 75 (Sujatha Barrett) -: 08/05/17 0414 08/05/17 0411 Physical Exam General Appearance: No Acute Distress, Comfortable (Sujatha Barrett) Eyes Eye Exam: Pupils Equal (Sujatha Barrett) Throat Throat Exam: Oral Mucosa [place] & Moist (Sujatha Barrett) Neck Neck Exam: Neck Supple (Sujatha Barrett) Pulmonary Resp Exam: Breath Sounds Equal, No Distress, Diminished Breath Sounds (Sujatha Barrett) Cardiology CV Exam: Regular, Normal Sinus Rhythm (Sujatha Barrett) Gastrointestinal/Abdomen GI Exam: Soft, Non-Tender, Bowel Sounds Present (Sujatha Barrett) Extremeties Extremities Exam: Trace Edema (Sujatha Barrett) Neurologic Neuro Exam: Alert, Awake, Oriented (Sujatha Barrett) Psychiatric Psych Exam: Appropriate Responses (Sujatha Barrett) Assessment/Plan Assessment Summary: MARSHALL/Acute Renal Failure, Hypertension, CKD Stage III Problem List: (1) Chronic kidney disease (CKD) ICD Codes: N18.9 - Chronic kidney disease, unspecified Plan: Patient has stage 3 chronic kidney disease, possibly due to Hypertensive or Diabetic renal disease. Develop MARSHALL, possibly related to contrast. Creatinine improved at 1.78 from 1.98 today Plan S/P heart cath continue to run IVF until tomorrow Continue to follow the urine out put and BMP. labs in AM (2) Atrial fibrillation with RVR ICD Codes: I48.91 - Unspecified atrial fibrillation (3) Hypertension ICD Codes: I10 - Essential (primary) hypertension Status: Chronic (4) Diabetes ICD Codes: E11.9 - Type 2 diabetes mellitus without complications (5) COPD (chronic obstructive pulmonary disease) ICD Codes: J44.9 - Chronic obstructive pulmonary disease, unspecified Status: Chronic (6) NSTEMI (non-ST elevated myocardial infarction) ICD Codes: I21.4 - Non-ST elevation (NSTEMI) myocardial infarction Status: Acute Plan . (Sujatha Barrett) Problem List: (1) Chronic kidney disease (CKD) ICD Codes: N18.9 - Chronic kidney disease, unspecified Plan: Patient has stage 3 chronic kidney disease, possibly due to Hypertensive or Diabetic renal disease. Develop MARSHALL, possibly related to contrast. Creatinine improved at 1.78 from 1.98 today Plan S/P heart cath continue to run IVF until tomorrow Continue to follow the urine out put and BMP. labs in AM. Patient seen and examined, agree with above. Seen Post Cardiac Cath. Follow the urine out put and BMP. (2) Atrial fibrillation with RVR ICD Codes: I48.91 - Unspecified atrial fibrillation (3) Hypertension ICD Codes: I10 - Essential (primary) hypertension Status: Chronic (4) Diabetes ICD Codes: E11.9 - Type 2 diabetes mellitus without complications (5) COPD (chronic obstructive pulmonary disease) ICD Codes: J44.9 - Chronic obstructive pulmonary disease, unspecified Status: Chronic (6) NSTEMI (non-ST elevated myocardial infarction) ICD Codes: I21.4 - Non-ST elevation (NSTEMI) myocardial infarction Status: Acute (Jessica Lay MD) Problem Qualifiers (1) Chronic kidney disease (CKD): Qualified Codes: N18.9 - Chronic kidney disease, unspecified (2) Diabetes: Sujatha Barrett Aug 05, 2017 16:18 Jessica Lay MD Aug 05, 2017 18:13
[2017-08-05] MEDS: ATORVASTATIN 40 MG TAB PO SCH (20:12)
[2017-08-05] MEDS: GABAPENTIN 300 MG CAP PO SCH (20:13)
[2017-08-05] MEDS: METOPROLOL TARTRATE 50 MG TAB PO SCH (20:13)
[2017-08-05] MEDS ORDERED: METOPROLOL TARTRATE 25 MG TAB PO SCH (21:00)
[2017-08-05] MEDS ORDERED: NITROGLYCERIN 2% OINT 1 GM PACKET TOPICAL PRN (22:45)
--- NOTE | 2017-08-05 23:01 | HHI.PR ---
Addendum to Inpatient Note Addendum Reason: Additional Documentation Additional Information S: Resident team was paged by nursing staff to clarify IV fluid orders, standing nitroglycerin order, and more importantly, because patient was complaining of shortness of breath. Patient reports that she just can't seem " to get her breath." She takes 5 or 6 deep breaths and feels that she's better for about a minute, then goes back to feeling like she just can't get her breath. She denies any chest pain, diaphoresis, visual changes, abdominal pain. She reports a little bit of lightheadedness and a little bit of nonproductive cough. O: Vitals: Pulse in the 50s to 60s, blood pressure 108/77, pulse ox 95% on 4 L nasal cannula, respiratory rate 21 Gen.: Elderly female lying in bed in no acute distress HEENT: Moist mucous membranes. Neck: No JVD Cardiovascular: Irregularly irregular borderline bradycardic Respiratory: Clear to auscultation patient bilaterally. No increased work of breathing. No signs of respiratory distress. Abdomen: Soft, nontender, nondistended. Extremities: No pitting edema. No calf tenderness. Neuro: Afocal. Alert and oriented. A/P: Patient is a 71-year-old female with a history of COPD, postop day 0 status post cardiac catheterization who complains of shortness of breath. -Vital signs and physical exam stable -EKG c/f new flipped T waves in V4,5,6; called motor analyst Dr. Vaca who did not seem concerned, and said these changes are to be expected. He was okay with breathing treatments. -No signs of fluid overload on exam. Nevertheless, stopped IVF and ordered nitro PRN instead of scheduled. -If EKG is not concerning for UT, will likely continue breathing treatments. -Considered getting cardiac enzymes, but they will likely still be elevated from initial insult s/d/w Dr. Matt Olmos,Corwin Spann MD R2 Aug 05, 2017 23:01
[2017-08-06] VITALS (12 sets, daily range): BP systolic 97–131; BP diastolic 51–76; PULSE 71–97; RESP 13–33; TEMP 97.5–98.7; O2SAT 95–99
[2017-08-06 04:23] LABS: AUTOMATED NEUTROPHIL # 8.1 TH/MM3 (1.8-7.7); BASOPHIL % 0.4 % (0.0-2.0); EOSINOPHIL # 0.1 TH/MM3 (0-0.4); EOSINOPHIL % 1.2 % (0.0-4.0); HEMATOCRIT 35.7 % (35.0-46.0); LYMPH % 18.5 % (9.0-44.0); LYMPHOCYTE # 2.1 TH/MM3 (1.0-4.8); MEAN CELL VOLUME 96.9 FL (80.0-100.0); MEAN CORPUSCULAR HEMOGLOBIN 32.5 PG (27.0-34.0); MEAN CORPUSCULAR HGB CONC 33.6 % (32.0-36.0); MEAN PLATELET VOLUME 8.5 FL (7.0-11.0); MONO % 9.7 % (0.0-8.0); MONOCYTE # 1.1 TH/MM3 (0-0.9); NEUT % 70.2 % (16.0-70.0); PLATELET COUNT 268 TH/MM3 (150-450); RED BLOOD COUNT 3.68 MIL/MM3 (4.00-5.30); RED CELL DISTRIBUTION WIDTH 13.5 % (11.6-17.2); WHITE BLOOD COUNT 11.5 TH/MM3 (4.0-11.0)
[2017-08-06 04:57] LABS: BICARBONATE 28.8 MEQ/L (21.0-32.0); CALCIUM 8.5 MG/DL (8.5-10.1); CREATININE 1.62 MG/DL (0.50-1.00)
[2017-08-06] MEDS: DILTIAZEM HCL 60 MG TAB PO SCH ×4 (05:07→21:40)
[2017-08-06] MEDS: INSULIN ASPART SUPPLEMENTAL SCALE SQ SCH ×4 (08:00→20:38)
[2017-08-06] MEDS: SODIUM CHLORIDE 0.9% FLUSH 10 ML FLUSH IV FLUSH SCH ×2 (08:13→20:36)
[2017-08-06] MEDS: METOPROLOL TARTRATE 50 MG TAB PO SCH ×2 (08:14→20:38)
[2017-08-06] MEDS: TICAGRELOR 90 MG TAB PO SCH ×2 (08:14→20:36)
[2017-08-06] MEDS: PANTOPRAZOLE SOD 40 MG DELAYED RELEASE TAB PO SCH (08:14)
[2017-08-06] MEDS: DOCUSATE SODIUM 50 MG/SENNA 8.6 MG TAB PO SCH ×2 (08:14→20:38)
[2017-08-06] MEDS: ASPIRIN 81 MG CHEW TAB PO SCH (08:14)
--- NOTE | 2017-08-06 08:46 | PD.CARD.PN ---
Subjective Subjective Remarks No angina. Was SOB last night Objective Medications Current Medications Medications (Trade) Dose Ordered Sig/Hilda Route Start Time Stop Time Status Last Admin (Narcan Inj) 0.4 mg UNSCH PRN IV PUSH 07/29/17 20:00 (Neyda-Colace) 1 tab BID PO 07/29/17 21:00 08/06/17 08:14 (Milk Of Magnesia Liq) 30 ml Q12H PRN PO 07/29/17 20:00 08/03/17 10:15 (Senokot) 17.2 mg Q12H PRN PO 07/29/17 20:00 (Dulcolax Supp) 10 mg DAILY PRN RECTAL 07/29/17 20:00 (Lactulose Liq) 30 ml DAILY PRN PO 07/29/17 20:00 (Neurontin) 300 mg HS PO 07/29/17 21:00 08/05/17 20:13 (D50w (Vial) Inj) 50 ml UNSCH PRN IV PUSH 07/29/17 21:00 (Glucagon Inj) 1 mg UNSCH PRN OTHER 07/29/17 21:00 (NovoLOG SUPPLEMENTAL SCALE) 1 ACHS SLIDING SCALE SQ 07/29/17 21:00 08/05/17 17:12 (Morphine Inj) 2 mg Q30M PRN IV PUSH 07/29/17 21:15 07/31/17 05:32 (Nitrostat Sl) 0.4 mg Q5M PRN SL 07/29/17 21:15 07/31/17 18:05 (Duoneb Neb) 1 ampule Q6HR NEB PRN NEB 07/29/17 22:15 08/04/17 20:34 (Lipitor) 40 mg HS PO 07/30/17 21:00 08/05/17 20:12 (Lopressor Inj) 5 mg Q6H PRN IV PUSH 07/30/17 09:00 08/01/17 00:05 (Albuterol Neb) 2.5 mg Q2HR NEB PRN INH 07/30/17 09:30 08/05/17 19:13 (Protonix) 40 mg DAILY PO 07/30/17 18:00 08/06/17 08:14 Miscellaneous Information Patient in critical care unit? Ass... Q361D .XX 07/30/17 21:30 07/30/17 21:30 (Tylenol) 650 mg Q6H PRN PO 08/01/17 11:30 08/05/17 15:33 (Cardizem Cd) 240 mg DAILY PO 08/04/17 09:00 Future Hold 08/04/17 09:15 (Benadryl) 25 mg BAND LEADER PO 08/04/17 12:15 08/08/17 12:14 08/05/17 07:09 (Valium) 5 mg BAND LEADER PO 08/04/17 12:15 08/08/17 12:14 08/05/17 07:09 (NS Flush) 2 ml UNSCH PRN IV FLUSH 08/05/17 11:00 08/06/17 08:13 (NS Flush) 2 ml BID IV FLUSH 08/05/17 21:00 08/06/17 08:13 (Aspirin Chew) 81 mg DAILY PO 08/06/17 09:00 08/06/17 08:14 (Brilinta) 90 mg BID PO 08/06/17 09:00 08/06/17 08:14 (Atropine Inj) 0.5 mg UNSCH PRN IV PUSH 08/05/17 11:00 (Zofran Inj) 4 mg Q4H PRN IV PUSH 08/05/17 11:00 08/05/17 10:03 (Lopressor) 50 mg Q12HR PO 08/05/17 21:00 08/06/17 08:14 (Cardizem) 60 mg Q6H PO 08/05/17 16:00 08/06/17 05:07 (Nitroglycerin 2% Oint) 0.75 inch Q6H PRN TOPICAL 08/05/17 22:45 Vital Signs / I&O Vital Signs Date Time Temp Pulse Resp B/P (MAP) Pulse Ox O2 Delivery O2 Flow Rate FiO2 08/06/17 06:00 89 08/06/17 04:00 98.7 88 16 130/76 (94) 97 08/06/17 04:00 88 08/06/17 02:00 76 08/06/17 00:00 71 08/06/17 00:00 98.3 71 13 102/60 (74) 97 08/05/17 22:00 64 08/05/17 21:16 98 Nasal Cannula 4.00 08/05/17 20:00 86 08/05/17 20:00 97.4 86 21 117/69 (85) 96 Arterial Line 08/05/17 19:15 96 Nasal Cannula 4.00 08/05/17 19:00 96 Nasal Cannula 4.00 08/05/17 18:00 88 08/05/17 16:00 118 08/05/17 16:00 97.6 118 13 124/80 (95) 96 08/05/17 15:00 103 17 110/72 (85) 97 08/05/17 14:00 125 25 126/61 (82) 91 08/05/17 14:00 125 08/05/17 13:00 121 23 156/106 (123) 90 145/75 (98) 08/05/17 12:30 86 17 144/70 (94) 95 08/05/17 12:00 98.0 85 21 133/60 (84) 100 147/72 (97) 08/05/17 12:00 85 08/05/17 11:45 104 34 147/75 (99) 96 08/05/17 11:30 76 19 151/75 (100) 100 08/05/17 11:15 85 26 151/72 (98) 90 08/05/17 09:55 57 74/30 I/O 08/05/17 08/05/17 08/05/17 08/06/17 08/06/17 08/06/17 07:00 15:00 23:00 07:00 15:00 23:00 Intake Total 480 ml 1042 ml 1836 ml 340 ml Output Total 2500 ml Balance 480 ml 1042 ml -664 ml 340 ml Intake Oral 480 ml 236 ml 240 ml IV Total 1042 ml 1600 ml 100 ml Output Urine Total 2500 ml # Voids 3 4 # Bowel Movements 2 0 Physical Exam Obese, anxious Chest: few basilar crackles CV S1S2 irr irr regular rate Tele AF controlled Abd soft Ext no edema. right groin OK Creatinine has gone down. Laboratory Laboratory Tests Test 08/05/17 14:22 08/06/17 04:02 Activated Partial Thromboplast Time 52.7 SEC White Blood Count 11.5 TH/MM3 Red Blood Count 3.68 MIL/MM3 Hemoglobin 12.0 GM/DL Hematocrit 35.7 % Mean Corpuscular Volume 96.9 FL Mean Corpuscular Hemoglobin 32.5 PG Mean Corpuscular Hemoglobin Concent 33.6 % Red Cell Distribution Width 13.5 % Platelet Count 268 TH/MM3 Mean Platelet Volume 8.5 FL Neutrophils (%) (Auto) 70.2 % Lymphocytes (%) (Auto) 18.5 % Monocytes (%) (Auto) 9.7 % Eosinophils (%) (Auto) 1.2 % Basophils (%) (Auto) 0.4 % Neutrophils # (Auto) 8.1 TH/MM3 Lymphocytes # (Auto) 2.1 TH/MM3 Monocytes # (Auto) 1.1 TH/MM3 Eosinophils # (Auto) 0.1 TH/MM3 Basophils # (Auto) 0.0 TH/MM3 CBC Comment DIFF FINAL Differential Comment Blood Urea Nitrogen 35 MG/DL Creatinine 1.62 MG/DL Random Glucose 82 MG/DL Calcium Level 8.5 MG/DL Sodium Level 138 MEQ/L Potassium Level 4.3 MEQ/L Chloride Level 102 MEQ/L Carbon Dioxide Level 28.8 MEQ/L Anion Gap 7 MEQ/L Estimat Glomerular Filtration Rate 31 ML/MIN Total Creatine Kinase 44 U/L Assessment and Plan Problem List: (1) Tobacco use disorder ICD Codes: F17.200 - Nicotine dependence, unspecified, uncomplicated (2) NSTEMI (non-ST elevated myocardial infarction) ICD Codes: I21.4 - Non-ST elevation (NSTEMI) myocardial infarction Status: Acute (3) Chronic kidney disease (CKD) ICD Codes: N18.9 - Chronic kidney disease, unspecified (4) Atrial fibrillation with RVR ICD Codes: I48.91 - Unspecified atrial fibrillation Plan: Rate OK now. Will wait at least another day before starting anticoagulation. (5) Morbid obesity ICD Codes: E66.01 - Morbid (severe) obesity due to excess calories (6) Stented coronary artery ICD Codes: Z95.5 - Presence of coronary angioplasty implant and graft Plan: currently on ASA and Brilinta. Assessment and Plan Transfer out of ICU. Consult physical therapy/ begin moblization. Problem Qualifiers (1) Chronic kidney disease (CKD): Qualified Codes: N18.9 - Chronic kidney disease, unspecified Marco Vaca MD Aug 06, 2017 08:46
--- NOTE | 2017-08-06 09:42 | HHI.NPPN ---
Subjective General Problems: Heart Disease Renal Failure: Chronic, Acute, Stage III History of Present Illness 71-year-old female with past medical history of hypertension, diabetes mellitus, ischemic heart disease, post coronary artery bypass grafting, chronic obstructive pulmonary disease, diabetes mellitus, peripheral vascular disease, and possible chronic kidney disease, who came to the hospital with atrial fibrillation and rapid ventricular rate. I was called to see the patient because of elevated BUN and creatinine. The patient has a creatinine of 1.59 on admission. Additional Remarks Patient sitting up in bed. Some SOB last night but improved this morning. (Sujatha Barrett) Review of Systems General Constitutional: Fatigue (Sujatha Barrett) Respiratory Lungs: SOB Respiratory Remarks Mild (Sujatha Barrett) Cardiovascular Cardiac: MARQUEZ Cardiac Remarks No CP (Sujatha Barrett) Gastrointestinal GI Remarks No abdominal pain (Sujatha Barrett) Objective Data Data Vital Signs Date Time Temp Pulse Resp B/P (MAP) Pulse Ox O2 Delivery O2 Flow Rate FiO2 08/06/17 06:00 89 08/06/17 04:00 98.7 88 16 130/76 (94) 97 08/06/17 04:00 88 08/06/17 02:00 76 08/06/17 00:00 71 08/06/17 00:00 98.3 71 13 102/60 (74) 97 08/05/17 22:00 64 08/05/17 21:16 98 Nasal Cannula 4.00 08/05/17 20:00 86 08/05/17 20:00 97.4 86 21 117/69 (85) 96 Arterial Line 08/05/17 19:15 96 Nasal Cannula 4.00 08/05/17 19:00 96 Nasal Cannula 4.00 08/05/17 18:00 88 08/05/17 16:00 118 08/05/17 16:00 97.6 118 13 124/80 (95) 96 08/05/17 15:00 103 17 110/72 (85) 97 08/05/17 14:00 125 25 126/61 (82) 91 08/05/17 14:00 125 08/05/17 13:00 121 23 156/106 (123) 90 145/75 (98) 08/05/17 12:30 86 17 144/70 (94) 95 08/05/17 12:00 98.0 85 21 133/60 (84) 100 147/72 (97) 08/05/17 12:00 85 08/05/17 11:45 104 34 147/75 (99) 96 08/05/17 11:30 76 19 151/75 (100) 100 08/05/17 11:15 85 26 151/72 (98) 90 08/05/17 09:55 57 74/30 (Sujatha Barrett) -: 08/06/17 0402 08/06/17 0402 Imaging Last Impressions Chest X-Ray 08/02/17 0600 Signed Impressions: Service Date/Time: Wednesday, August 02, 2017 12:52 - CONCLUSION: 1. Cardiomegaly with mild CHF 2. Small bilateral effusions 3. Status post CABG Forrest Killian MD Renal Ultrasound 08/01/17 0000 Signed Impressions: Service Date/Time: Tuesday, August 01, 2017 11:15 - CONCLUSION: 1. No hydronephrosis. 2. The kidneys are small and atrophic with increased echogenicity characteristic of medical renal disease. Corwin Shine MD CT Angiography 07/29/17 1700 Signed Impressions: Service Date/Time: Saturday, July 29, 2017 19:11 - CONCLUSION: 1. No pulmonary embolus. 2. Bibasilar areas of consolidation or atelectasis. Jhony Cabrera MD (Sujatha Barrett) Physical Exam General Appearance: No Acute Distress, Comfortable (Sujatha Barrett) Eyes Eye Exam: Pupils Equal (Sujatha Barrett) Throat Throat Exam: Oral Mucosa [place] & Moist (Sujatha Barrett) Neck Neck Exam: Neck Supple (Sujatha Barrett) Pulmonary Resp Exam: Breath Sounds Equal, No Distress, Diminished Breath Sounds (Sujatha Barrett) Cardiology CV Exam: Regular, Normal Sinus Rhythm (Sujatha Barrett) Gastrointestinal/Abdomen GI Exam: Soft, Non-Tender, Bowel Sounds Present (Sujatha Barrett) Extremeties Extremities Exam: Trace Edema (Sujatha Barrett) Neurologic Neuro Exam: Alert, Awake, Oriented (Sujatha Barrett) Psychiatric Psych Exam: Appropriate Responses (Sujatha Barrett) Assessment/Plan Assessment Summary: MARSHALL/Acute Renal Failure, Hypertension, CKD Stage III Problem List: (1) Chronic kidney disease (CKD) ICD Codes: N18.9 - Chronic kidney disease, unspecified Plan: Patient has stage 3 chronic kidney disease, possibly due to Hypertensive or Diabetic renal disease. Develop MARSHALL, possibly related to contrast. Creatinine improving at 1.62 from 1.71 S/P heart cath 4/4 with stent placement Plan IVF is discontinued Continue to follow the urine out put and BMP. PT for mobilization (2) Atrial fibrillation with RVR ICD Codes: I48.91 - Unspecified atrial fibrillation (3) Hypertension ICD Codes: I10 - Essential (primary) hypertension Status: Chronic (4) Diabetes ICD Codes: E11.9 - Type 2 diabetes mellitus without complications (5) COPD (chronic obstructive pulmonary disease) ICD Codes: J44.9 - Chronic obstructive pulmonary disease, unspecified Status: Chronic (6) NSTEMI (non-ST elevated myocardial infarction) ICD Codes: I21.4 - Non-ST elevation (NSTEMI) myocardial infarction Status: Acute Plan . (Sujatha Barrett) Problem List: (1) Chronic kidney disease (CKD) ICD Codes: N18.9 - Chronic kidney disease, unspecified Plan: Patient has stage 3 chronic kidney disease, possibly due to Hypertensive or Diabetic renal disease. Develop MARSHALL, possibly related to contrast. Creatinine improving at 1.62 from 1.71 S/P heart cath 4/4 with stent placement Plan IVF is discontinued Continue to follow the urine out put and BMP. PT for mobilization. Patient seen and examined, agree with above. Develop SOB, CXR noted. Started on antibiotics, follow the Vanco. level. (2) Atrial fibrillation with RVR ICD Codes: I48.91 - Unspecified atrial fibrillation (3) Hypertension ICD Codes: I10 - Essential (primary) hypertension Status: Chronic (4) Diabetes ICD Codes: E11.9 - Type 2 diabetes mellitus without complications (5) COPD (chronic obstructive pulmonary disease) ICD Codes: J44.9 - Chronic obstructive pulmonary disease, unspecified Status: Chronic (6) NSTEMI (non-ST elevated myocardial infarction) ICD Codes: I21.4 - Non-ST elevation (NSTEMI) myocardial infarction Status: Acute (Jessica Lay MD) Problem Qualifiers (1) Chronic kidney disease (CKD): Qualified Codes: N18.9 - Chronic kidney disease, unspecified (2) Diabetes: Sujatha Barrett Aug 06, 2017 09:42 Jessica Lay MD Aug 06, 2017 18:39
[2017-08-06] MEDS: RESP: ALBUTEROL 2.5 MG/IPRATROPIUM 0.5 MG NEB (PRN) NEB ×2 (10:33→20:53)
--- NOTE | 2017-08-06 10:38 | HHI.FPPN ---
Subjective Remarks Patient seen and examined bedside this morning. Patient experienced shortness of breath and was evaluated by the on-call team. Her shortness of breath felt like" it was hard to catch her breath" and felt different from her COPD exacerbations in the past. She did not have any chest pain during the episode. EKG was done revealing T-wave inversions, this information was relayed to the on -call night disabilities services officer Dr. Vaca who confirmed that this is normal status post catheterization. (Freya Rush MD R2) Objective Vitals Vital Signs Date Time Temp Pulse Resp B/P (MAP) Pulse Ox O2 Delivery O2 Flow Rate FiO2 08/06/17 09:53 96 Nasal Cannula 3.00 08/06/17 07:00 98 Nasal Cannula 2.00 08/06/17 06:00 89 08/06/17 04:00 98.7 88 16 130/76 (94) 97 08/06/17 04:00 88 08/06/17 02:00 76 08/06/17 00:00 71 08/06/17 00:00 98.3 71 13 102/60 (74) 97 08/05/17 22:00 64 08/05/17 21:16 98 Nasal Cannula 4.00 08/05/17 20:00 86 08/05/17 20:00 97.4 86 21 117/69 (85) 96 Arterial Line 08/05/17 19:15 96 Nasal Cannula 4.00 08/05/17 19:00 96 Nasal Cannula 4.00 08/05/17 18:00 88 08/05/17 16:00 118 08/05/17 16:00 97.6 118 13 124/80 (95) 96 08/05/17 15:00 103 17 110/72 (85) 97 08/05/17 14:00 125 25 126/61 (82) 91 08/05/17 14:00 125 08/05/17 13:00 121 23 156/106 (123) 90 145/75 (98) 08/05/17 12:30 86 17 144/70 (94) 95 08/05/17 12:00 98.0 85 21 133/60 (84) 100 147/72 (97) 08/05/17 12:00 85 08/05/17 11:45 104 34 147/75 (99) 96 08/05/17 11:30 76 19 151/75 (100) 100 08/05/17 11:15 85 26 151/72 (98) 90 I/O 08/05/17 08/05/17 08/05/17 08/06/17 08/06/17 08/06/17 07:00 15:00 23:00 07:00 15:00 23:00 Intake Total 480 ml 1042 ml 1836 ml 340 ml Output Total 2500 ml Balance 480 ml 1042 ml -664 ml 340 ml Intake Oral 480 ml 236 ml 240 ml IV Total 1042 ml 1600 ml 100 ml Output Urine Total 2500 ml # Voids 3 4 # Bowel Movements 2 0 (Freya Rush MD R2) Result Diagram: 08/06/1740108/06/17401 Objective Remarks GENERAL: This is a well-nourished, well-developed patient, in no apparent distress. NC in place and 5 L and sitting upright in bed comfortably. Speaking in full sentences SKIN: No rashes, ecchymoses or lesions. Cool and dry. HEAD: Atraumatic. Normocephalic. EYES: Pupils equal round and reactive. Extraocular motions intact. No scleral icterus. No injection or drainage. ENT: Nose without bleeding or drainage. CARDIOVASCULAR: Irregular rate and rhythm without murmurs. RESPIRATORY: Clear to auscultation. Wheezing on inspiration in lower lobes GASTROINTESTINAL: Obese abdomen, soft, non-tender, nondistended. No hepato- splenomegaly, or palpable masses. No guarding. MUSCULOSKELETAL: Extremities without clubbing or cyanosis, +2 pedal edema noted BL -unchanged from prior exam. No joint tenderness, effusion, or edema noted. No calf tenderness. +2 DP pulses BL. NEUROLOGICAL: Awake and alert. Cranial nerves II through XII intact. Motor and sensory grossly within normal limits. Five out of 5 muscle strength in all muscle groups. Normal speech. (Freya Rush MD R2) A/P Assessment and Plan Patient is a 71-year-old female with past medical history of CAD s/p CABG, PVD, DM, HTN, COPD brought to the ED via [facility] after she developed sxs of severe chest pain and shortness of breath. In he ED patient was found to be in A. fib with RVR, elevated troponin of 0.39 with heart rate ranging from 110--160s and oxygen saturations in the low 90s. Patient admitted for management of NSTEMI and respiratory distress. Nephrology has been consulted for MARSHALL on CKD, thought to be due to contrast for imaging. Creatinine downtrending since admission on , and catheterization completed on 08/05. Catheterization reveals three-vessel coronary artery disease, with critical left main disease stented and proximal circumflex artery stented. Discharge Planning Patient needs heart cath prior to discharge (Freya Rush MD R2) Attending Attestation Patient seen and examined, discussed with resident team. I agree with assessment and management as documented and discussed with me. Pt reports SOB has improved, with acute onset overnight. CXR demontrates LLL pneumonia, and antibiotics have been appropriately initiated. Pt is stable; transfer from ICU to floor today. (Dionne Metcalf MD) Problem List: (1) NSTEMI (non-ST elevated myocardial infarction) ICD Codes: I21.4 - Non-ST elevation (NSTEMI) myocardial infarction Status: Acute Plan: Catheterization reveals three-vessel coronary artery disease, with critical left main disease stented and proximal circumflex artery stented.' EKG with T-wave inversions overnight, deemed to be okay by cardiology f/u recs of cardiology: continue Brilinta, Aspirin, f/u Creat, will wait at least one more day before starting anticoagulation EKG: Atrial fib with RVR On admission: troponin elevated at 0.39 -> 2.18 --> 1.76 In the ED started on heparin drip, given Cardizem 10 mg IV1, Lasix 40mg IV x1, morphine 4mg x1, nitroglycerin x1, solumedrol 125mg IV x1, duoneb x3. Bipap transitioned to NC in ED Placed on telemetry Imaging: CTA-No pulmonary embolus. Bibasilar areas of consolidation or atelectasis BNP of 493, no hx of CHF. Echocardiogram pending Cardiology consulted -cardiac catheterization 08/05, f/u recs Continuing Heparin drip protocol ASA 325mg po daily Lipitor 40mg po HS Cardizem for atrial fibrillation -240 mg daily Metoprolol 50 mg twice a day Nitroglycerin ointment every 6 scheduled. PT assessment stating patient will need home health with home PT at discharge. (2) Atrial fibrillation with RVR ICD Codes: I48.91 - Unspecified atrial fibrillation Plan: Rate and rhythm has been well controlled over last 24 hours And start anticoagulation in the next 1-2 days On admission patient found to be in A. fib with RVR on EKG Unclear where this this is new onset although patient stated that she has palpitation "all the time". Patient not on warfarin or any other rhythm alternating agent. Patient asymptomatic, with HR ranging 110-160 on admission Patient received 1 dose of Cardizem 10 mg IV in ED Telemetry Will continue to monitor 07/30: Metoprolol Tartrate 25mg po BID, Metoprolol Tartrate 5mg IV push PRN for HR >110 07/31: HR 130s this AM. Cardizem 15mg IV x 1 then cardizem PO 240mg daily per cardiology 08/03: Increased dose of metoprolol to 40 mg twice a day, as well as diltiazem 360 mg daily. Having increased heart rate with minimal activity. (3) COPD (chronic obstructive pulmonary disease) ICD Codes: J44.9 - Chronic obstructive pulmonary disease, unspecified Status: Chronic Plan: Shortness of breath last night Differential includes atelectasis versus COPD exacerbation versus cardiac Patient is on DuoNeb every 6 when necessary shortness of breath, with albuterol PRN Incentive spirometry and PT/OT ordered s/p treatment for COPD exacerbation Levaquin 750mg once, 500mg [id number] (due to creatinine clearance less than 30) for 5 days ( 07/30 - 08/04, 2 doses only given q48 for MARSHALL) Prednisone 50mg daily for 5 days (07/30- 08/04) Duonebs, Albuterol PRN Chest x-ray on admission 07/29: Mild bibasilar infiltrates, interstitial changes Chest x-ray on 08/02: Mild CHF with mild bilateral effusions, no consolidations (4) Diabetes ICD Codes: E11.9 - Type 2 diabetes mellitus without complications Plan: Home metformin medication held Placed on SSI low dose hypoglycemia protocol monitor AccuChecks BG range 120-244, patient on steroids (5) Hypertension ICD Codes: I10 - Essential (primary) hypertension Status: Chronic Plan: Follow-up recommendations per cardiology Holding home Amlodipine for now Metoprolol 50mg BID Cardizem 60 mg every 6 hours (6) Chronic kidney disease (CKD) ICD Codes: N18.9 - Chronic kidney disease, unspecified Plan: Creat 1.72 (from 1.59 on admission) - received contrast with CT scan in ED Avoid nephrotoxic agents Will continue to trend daily - will need improvement prior to heart cath Careful PO hydration given CHF Appreciate the assistance of nephrology. (7) Nutrition, metabolism, and development symptoms ICD Codes: R63.8 - Other symptoms and signs concerning food and fluid intake Plan: Fluids: careful hydration given CHF, PO Electrolytes: replete as needed Nutrition: Heart healthy diet DVT ppx: SCDs, plan to start anticoagulation for Afibb in next 1-2 days (Freya Rush MD R2) Problem Qualifiers (1) Diabetes: (2) Chronic kidney disease (CKD): Qualified Codes: N18.9 - Chronic kidney disease, unspecified Freya Rush MD R2 Aug 06, 2017 10:38 Dionne Metcalf MD Aug 07, 2017 20:24
--- NOTE | 2017-08-06 12:48 | RADRPT ---
EXAM DATE/TIME: 08/06/2017 12:01 [facility] COMPARISON: CHEST PA & LAT, August 02, 2017, 12:52. INDICATIONS : Short of breath. MEDICAL HISTORY : Chronic obstructive pulmonary disease. Diabetes mellitus type II. Hypertension. SURGICAL HISTORY : CABG. Coronary artery stent. ENCOUNTER: Initial ACUITY: 3 days PAIN SCORE: 0/10 LOCATION: Bilateral chest FINDINGS: Focal consolidation with a small effusion seen posteriorly the left lung base. Right lung currently r easonably clear. No pneumothorax. Heart size stable, upper limits of normal. Patient has had previous median sternotomy. CONCLUSION: Left lower lobe pneumonia with adjacent small pleural effusion. Jhony Cheung MD on August 06, 2017 at 12:46 Board Certified Radiologist. This report was verified electronically.
--- NOTE | 2017-08-06 13:56 | EKG ---
Date Performed: 08/06/2017 Time Performed: 07:06:46 PTAGE: 71 years EKG: ATRIAL FIBRILLATION ST DEVIATION AND MODERATE T-WAVE ABNORMALITY, CONSIDER INFERIOR ISCHEMI A ABNORMAL ECG Since the PREVIOUS TRACING , no significant change noted PREVIOUS TRACIN08/05/2017 11.41 DOCTOR: Diane Morrell Interpretating Date/Time 08/06/2017 13:55:11
[2017-08-06] MEDS ORDERED: Vancomycin Consult Pharmacy 1 EA OTHER SCH (14:00)
[2017-08-06] MEDS ORDERED: PIPERACIL-TAZO 4.5 GM PREMIX 100 ML IV SCH (15:00)
[2017-08-06] MEDS ORDERED: VANCOMYCIN INJ 1,250 MG in SODIUM CHLOR 0.9% 250 ML INJ 250 ML IV ONE (18:00)
[2017-08-06] MEDS: PIPERACIL-TAZO 3.375 GM PREMIX 50 ML IV SCH (20:36)
[2017-08-06] MEDS: ATORVASTATIN 40 MG TAB PO SCH (20:37)
[2017-08-06] MEDS: GABAPENTIN 300 MG CAP PO SCH (20:38)
[2017-08-07] VITALS (7 sets, daily range): BP systolic 100–129; BP diastolic 53–75; PULSE 52–100; RESP 17–22; TEMP 97.6–98.1; O2SAT 94–99
[2017-08-07] MEDS: PIPERACIL-TAZO 3.375 GM PREMIX 50 ML IV SCH ×4 (01:51→19:57)
[2017-08-07] MEDS: DILTIAZEM HCL 60 MG TAB PO SCH ×4 (04:26→21:21)
[2017-08-07] MEDS: INSULIN ASPART SUPPLEMENTAL SCALE SQ SCH ×4 (08:00→20:07)
--- NOTE | 2017-08-07 09:32 | PD.CARD.PN ---
Subjective Subjective Remarks SOB supine. Constipated Objective Medications Current Medications Medications (Trade) Dose Ordered Sig/Hilda Route Start Time Stop Time Status Last Admin (Narcan Inj) 0.4 mg UNSCH PRN IV PUSH 07/29/17 20:00 (Neyda-Colace) 1 tab BID PO 07/29/17 21:00 08/06/17 20:38 (Milk Of Magnesia Liq) 30 ml Q12H PRN PO 07/29/17 20:00 08/03/17 10:15 (Senokot) 17.2 mg Q12H PRN PO 07/29/17 20:00 (Dulcolax Supp) 10 mg DAILY PRN RECTAL 07/29/17 20:00 (Lactulose Liq) 30 ml DAILY PRN PO 07/29/17 20:00 (Neurontin) 300 mg HS PO 07/29/17 21:00 08/06/17 20:38 (D50w (Vial) Inj) 50 ml UNSCH PRN IV PUSH 07/29/17 21:00 (Glucagon Inj) 1 mg UNSCH PRN OTHER 07/29/17 21:00 (NovoLOG SUPPLEMENTAL SCALE) 1 ACHS SLIDING SCALE SQ 07/29/17 21:00 08/05/17 17:12 (Morphine Inj) 2 mg Q30M PRN IV PUSH 07/29/17 21:15 07/31/17 05:32 (Nitrostat Sl) 0.4 mg Q5M PRN SL 07/29/17 21:15 07/31/17 18:05 (Duoneb Neb) 1 ampule Q6HR NEB PRN NEB 07/29/17 22:15 08/06/17 20:53 (Lipitor) 40 mg HS PO 07/30/17 21:00 08/06/17 20:37 (Lopressor Inj) 5 mg Q6H PRN IV PUSH 07/30/17 09:00 08/01/17 00:05 (Albuterol Neb) 2.5 mg Q2HR NEB PRN INH 07/30/17 09:30 08/05/17 19:13 (Protonix) 40 mg DAILY PO 07/30/17 18:00 08/06/17 08:14 Miscellaneous Information Patient in critical care unit? Ass... Q361D .XX 07/30/17 21:30 07/30/17 21:30 (Tylenol) 650 mg Q6H PRN PO 08/01/17 11:30 08/05/17 15:33 (Cardizem Cd) 240 mg DAILY PO 08/04/17 09:00 Future Hold 08/04/17 09:15 (Benadryl) 25 mg BODY AND FRAME MAN PO 08/04/17 12:15 08/08/17 12:14 08/05/17 07:09 (Valium) 5 mg BODY AND FRAME MAN PO 08/04/17 12:15 08/08/17 12:14 08/05/17 07:09 (NS Flush) 2 ml UNSCH PRN IV FLUSH 08/05/17 11:00 08/06/17 08:13 (NS Flush) 2 ml BID IV FLUSH 08/05/17 21:00 08/06/17 20:36 (Aspirin Chew) 81 mg DAILY PO 08/06/17 09:00 08/06/17 08:14 (Brilinta) 90 mg BID PO 08/06/17 09:00 08/06/17 20:36 (Atropine Inj) 0.5 mg UNSCH PRN IV PUSH 08/05/17 11:00 (Zofran Inj) 4 mg Q4H PRN IV PUSH 08/05/17 11:00 08/05/17 10:03 (Lopressor) 50 mg Q12HR PO 08/05/17 21:00 08/06/17 20:38 (Cardizem) 60 mg Q6H PO 08/05/17 16:00 08/07/17 04:26 (Nitroglycerin 2% Oint) 0.75 inch Q6H PRN TOPICAL 08/05/17 22:45 Pharmacy Profile Note 0 ml @ 0 mls/hr UNSCH OTHER 08/06/17 14:00 Piperacillin Sod/ Tazobactam Sod 50 ml @ 100 mls/hr Q6H IV 08/06/17 20:00 08/07/17 01:51 Vancomycin HCl 1000 mg/Sodium Chloride 250 ml @ 250 mls/hr Q24H IV 08/07/17 18:00 Miscellaneous Information SPECIFIC LAB TO BE DRAWN:[facility] TROUGH DATE TO BE DREthel.. ONCE ONCE .XX 08/09/17 17:45 08/09/17 17:46 Vital Signs / I&O Vital Signs Date Time Temp Pulse Resp B/P (MAP) Pulse Ox O2 Delivery O2 Flow Rate FiO2 08/07/17 04:00 98.1 94 19 103/59 (74) 97 08/07/17 00:00 97.7 70 20 120/57 (78) 94 08/06/17 22:15 97.7 97 19 116/56 (76) 95 08/06/17 22:15 Nasal Cannula 2.00 08/06/17 20:56 96 Nasal Cannula 2.50 08/06/17 20:00 98.6 86 17 124/58 (80) 95 08/06/17 20:00 86 08/06/17 19:00 95 Nasal Cannula 2.00 08/06/17 16:00 98.3 90 13 122/65 (84) 97 08/06/17 16:00 90 08/06/17 12:30 97.5 81 33 97/51 (66) 99 08/06/17 12:00 81 08/06/17 09:53 96 Nasal Cannula 3.00 I/O 08/06/17 08/06/17 08/06/17 08/07/17 08/07/17 08/07/17 07:00 15:00 23:00 07:00 15:00 23:00 Intake Total 340 ml 1356.5 ml 240 ml Output Total 1400 ml 550 ml Balance 340 ml -43.5 ml -310 ml Intake Oral 240 ml 944 ml 240 ml IV Total 100 ml 412.5 ml Output Urine Total 1400 ml 550 ml # Voids 4 # Bowel Movements 0 0 Physical Exam Obese, anxious Chest: exp wheezes CV S1S2 irr irr regular rate Tele AF controlled Abd soft Ext no edema. right groin OK Labs pending Laboratory Laboratory Tests Test 07/29/17 17:10 07/30/17 01:46 07/30/17 04:55 07/30/17 08:15 Prothrombin Time 10.3 SEC Prothromb Time International Ratio 1.0 RATIO Blood Urea Nitrogen 20 MG/DL Creatinine 1.59 MG/DL Random Glucose 131 MG/DL Total Protein 8.1 GM/DL Albumin 3.9 GM/DL Calcium Level 9.2 MG/DL Magnesium Level 1.9 MG/DL Alkaline Phosphatase 92 U/L Aspartate Amino Transf (AST/SGOT) 26 U/L Alanine Aminotransferase (ALT/SGPT) 23 U/L Total Bilirubin 0.4 MG/DL Sodium Level 138 MEQ/L Potassium Level 4.3 MEQ/L Chloride Level 104 MEQ/L Carbon Dioxide Level 22.5 MEQ/L B-Type Natriuretic Peptide 493 PG/ML Urine Color YELLOW Urine Turbidity CLEAR Urine pH 5.0 Urine Specific [place] 1.037 Urine Protein TRACE mg/dL Urine Glucose (UA) NEG mg/dL Urine Ketones NEG mg/dL Urine Occult Blood NEG Urine Nitrite NEG Urine Bilirubin NEG Urine Urobilinogen LESS THAN 2.0 MG/DL Urine Leukocyte Esterase LARGE Urine RBC 1 /hpf Urine WBC 13 /hpf Urine Squamous Epithelial Cells 1 /hpf Urine Transitional Epithelial Cells 1 /hpf Urine Hyaline Casts 1 /lpf Urine Mucus FEW /lpf Microscopic Urinalysis Comment CULTURE INDICATED Triglycerides Level 54 MG/DL Cholesterol Level 148 MG/DL LDL Cholesterol 86 MG/DL HDL Cholesterol 51.2 MG/DL Cholesterol/HDL Ratio 2.89 RATIO Nasal Screen MRSA (PCR) MRSA NOT DETECTED Test 08/02/17 04:22 08/03/17 05:22 08/05/17 14:22 08/06/17 04:02 Troponin I 0.78 NG/ML Blood Urea Nitrogen 45 MG/DL 35 MG/DL Creatinine 2.17 MG/DL 1.62 MG/DL Random Glucose 101 MG/DL 82 MG/DL Total Protein 6.6 GM/DL Albumin 3.3 GM/DL Calcium Level 8.5 MG/DL 8.5 MG/DL Alkaline Phosphatase 62 U/L Aspartate Amino Transf (AST/SGOT) 15 U/L Alanine Aminotransferase (ALT/SGPT) 30 U/L Total Bilirubin 0.3 MG/DL Sodium Level 136 MEQ/L 138 MEQ/L Potassium Level 4.3 MEQ/L 4.3 MEQ/L Chloride Level 104 MEQ/L 102 MEQ/L Carbon Dioxide Level 26.3 MEQ/L 28.8 MEQ/L Activated Partial Thromboplast Time 52.7 SEC White Blood Count 11.5 TH/MM3 Red Blood Count 3.68 MIL/MM3 Hemoglobin 12.0 GM/DL Hematocrit 35.7 % Mean Corpuscular Volume 96.9 FL Mean Corpuscular Hemoglobin 32.5 PG Mean Corpuscular Hemoglobin Concent 33.6 % Red Cell Distribution Width 13.5 % Platelet Count 268 TH/MM3 Mean Platelet Volume 8.5 FL Neutrophils (%) (Auto) 70.2 % Lymphocytes (%) (Auto) 18.5 % Monocytes (%) (Auto) 9.7 % Eosinophils (%) (Auto) 1.2 % Basophils (%) (Auto) 0.4 % Neutrophils # (Auto) 8.1 TH/MM3 Lymphocytes # (Auto) 2.1 TH/MM3 Monocytes # (Auto) 1.1 TH/MM3 Eosinophils # (Auto) 0.1 TH/MM3 Basophils # (Auto) 0.0 TH/MM3 CBC Comment DIFF FINAL Differential Comment Anion Gap 7 MEQ/L Estimat Glomerular Filtration Rate 31 ML/MIN Total Creatine Kinase 44 U/L Imaging Last 48 hours Impressions Chest X-Ray 08/06/17 0000 Signed Impressions: Service Date/Time: August 12:01 - CONCLUSION: Left lower lobe pneumonia with adjacent small pleural effusion. Jhony Cheung MD Assessment and Plan Problem List: (1) Tobacco use disorder ICD Codes: F17.200 - Nicotine dependence, unspecified, uncomplicated (2) NSTEMI (non-ST elevated myocardial infarction) ICD Codes: I21.4 - Non-ST elevation (NSTEMI) myocardial infarction Status: Acute (3) Chronic kidney disease (CKD) ICD Codes: N18.9 - Chronic kidney disease, unspecified Plan: Await results of lab - large contrast load from PCI but well hydrated and hopefully will be OK (4) Atrial fibrillation with RVR ICD Codes: I48.91 - Unspecified atrial fibrillation (5) Morbid obesity ICD Codes: E66.01 - Morbid (severe) obesity due to excess calories (6) Stented coronary artery ICD Codes: Z95.5 - Presence of coronary angioplasty implant and graft Plan: Complex but successful procedure (7) Debilitated patient ICD Codes: R53.81 - Other malaise Plan: Prolonged bedrest has left her weak. PT Problem Qualifiers (1) Chronic kidney disease (CKD): Qualified Codes: N18.9 - Chronic kidney disease, unspecified Marco Vaca MD Aug 07, 2017 09:32
[2017-08-07] MEDS: METOPROLOL TARTRATE 50 MG TAB PO SCH ×2 (09:52→19:58)
[2017-08-07] MEDS: TICAGRELOR 90 MG TAB PO SCH ×2 (09:52→19:58)
[2017-08-07] MEDS: PANTOPRAZOLE SOD 40 MG DELAYED RELEASE TAB PO SCH (09:52)
[2017-08-07] MEDS: DOCUSATE SODIUM 50 MG/SENNA 8.6 MG TAB PO SCH ×2 (09:52→19:58)
[2017-08-07] MEDS: ASPIRIN 81 MG CHEW TAB PO SCH (09:53)
[2017-08-07] MEDS: SODIUM CHLORIDE 0.9% FLUSH 10 ML FLUSH IV FLUSH SCH ×2 (09:58→19:59)
[2017-08-07 10:32] LABS: HEMATOCRIT 36.1 % (35.0-46.0); HEMOGLOBIN 12.2 GM/DL (11.6-15.3); MEAN CELL VOLUME 96.5 FL (80.0-100.0); MEAN CORPUSCULAR HEMOGLOBIN 32.5 PG (27.0-34.0); MEAN CORPUSCULAR HGB CONC 33.7 % (32.0-36.0); MEAN PLATELET VOLUME 8.7 FL (7.0-11.0); PLATELET COUNT 252 TH/MM3 (150-450); RED BLOOD COUNT 3.74 MIL/MM3 (4.00-5.30); RED CELL DISTRIBUTION WIDTH 13.5 % (11.6-17.2); WHITE BLOOD COUNT 10.6 TH/MM3 (4.0-11.0)
[2017-08-07 11:00] LABS: BICARBONATE 30.8 MEQ/L (21.0-32.0); CALCIUM 8.7 MG/DL (8.5-10.1); CREATININE 1.85 MG/DL (0.50-1.00)
--- NOTE | 2017-08-07 11:39 | EKG ---
Date Performed: 08/05/2017 Time Performed: 23:06:02 PTAGE: 71 years EKG: Atrial fibrillation. LVH with secondary repolarization abnormality Extensive ST-T changes m ay be due to hypertrophy and/or ischemia Abnormal ECG PREVIOUS TRACING 08/05/17 Since the prior tracing, the inferolateral T-wave changes are new. Cli nical correlation will be important. DOCTOR: Diane Morrell Interpretating Date/Time 08/07/2017 11:38:20
[2017-08-07] MEDS: APIXABAN 2.5 MG TABLET PO SCH ×2 (11:44→19:58)
[2017-08-07] MEDS: RESP: ALBUTEROL 2.5 MG/IPRATROPIUM 0.5 MG NEB (PRN) NEB (12:10)
--- NOTE | 2017-08-07 12:24 | HHI.NPPN ---
Subjective General Problems: Heart Disease Renal Failure: Chronic, Acute, Stage III History of Present Illness 71-year-old female with past medical history of hypertension, diabetes mellitus, ischemic heart disease, post coronary artery bypass grafting, chronic obstructive pulmonary disease, diabetes mellitus, peripheral vascular disease, and possible chronic kidney disease, who came to the hospital with atrial fibrillation and rapid ventricular rate. I was called to see the patient because of elevated BUN and creatinine. The patient has a creatinine of 1.59 on admission. Additional Remarks Patient reports continued SOB. Mild lower extremity edema. Reports that she just does not feel well. (Sujatha Barrett) Review of Systems General Constitutional: Fatigue (Sujatha Barrett) Respiratory Lungs: SOB Respiratory Remarks Mild (Sujatha Barrett) Cardiovascular Cardiac: Chest Pain, MARQUEZ (Sujatha Barrett) Gastrointestinal GI Remarks No abdominal pain (Sujatha Barrett) Objective Data Data Vital Signs Date Time Temp Pulse Resp B/P (MAP) Pulse Ox O2 Delivery O2 Flow Rate FiO2 08/07/17 12:14 95 Nasal Cannula 2.00 08/07/17 08:00 97.6 52 18 101/61 (74) 94 08/07/17 04:00 98.1 94 19 103/59 (74) 97 08/07/17 00:00 97.7 70 20 120/57 (78) 94 08/06/17 22:15 97.7 97 19 116/56 (76) 95 08/06/17 22:15 Nasal Cannula 2.00 08/06/17 20:56 96 Nasal Cannula 2.50 08/06/17 20:00 98.6 86 17 124/58 (80) 95 08/06/17 20:00 86 08/06/17 19:00 95 Nasal Cannula 2.00 08/06/17 16:00 98.3 90 13 122/65 (84) 97 08/06/17 16:00 90 08/06/17 12:30 97.5 81 33 97/51 (66) 99 (Sujatha Barrett) -: 08/07/17 0958 08/07/17 0958 Microbiology 08/06/17 Aerobic Blood Culture - Preliminary, Resulted NO GROWTH IN 1 DAY 08/06/17 Anaerobic Blood Culture - Preliminary, Resulted NO GROWTH IN 1 DAY 08/06/17 Aerobic Blood Culture - Preliminary, Resulted NO GROWTH IN 1 DAY 08/06/17 Anaerobic Blood Culture - Preliminary, Resulted NO GROWTH IN 1 DAY Imaging Last Impressions Chest X-Ray 08/06/17 0000 Signed Impressions: Service Date/Time: August 12:01 - CONCLUSION: Left lower lobe pneumonia with adjacent small pleural effusion. Jhony Cheung MD Renal Ultrasound 08/01/17 0000 Signed Impressions: Service Date/Time: Tuesday, August 01, 2017 11:15 - CONCLUSION: 1. No hydronephrosis. 2. The kidneys are small and atrophic with increased echogenicity characteristic of medical renal disease. Corwin Shine MD CT Angiography 07/29/17 1700 Signed Impressions: Service Date/Time: Saturday, July 29, 2017 19:11 - CONCLUSION: 1. No pulmonary embolus. 2. Bibasilar areas of consolidation or atelectasis. Jhony Cabrera MD (Sujatha Barrett) Physical Exam General Appearance: No Acute Distress, Comfortable (LudylerSujatha chan. FRUIT PRESERVER) Eyes Eye Exam: Pupils Equal (Sujatha BarrettP) Throat Throat Exam: Oral Mucosa Gandy & Moist (Sujatha Barrett. FRUIT PRESERVER) Neck Neck Exam: Neck Supple (GellerSujatha chan. FRUIT PRESERVER) Pulmonary Resp Exam: Breath Sounds Equal, No Distress, Diminished Breath Sounds (LudylerSujatha chan. FRUIT PRESERVER) Cardiology CV Exam: Regular, Normal Sinus Rhythm (Sujatha Barrett. FRUIT PRESERVER) Gastrointestinal/Abdomen GI Exam: Soft, Non-Tender, Bowel Sounds Present (LudylerSujatha chan. FRUIT PRESERVER) Extremeties Extremities Exam: Trace Edema (Sujatha Barrett. FRUIT PRESERVER) Neurologic Neuro Exam: Alert, Awake, Oriented (Sujatha Barrett. FRUIT PRESERVER) Psychiatric Psych Exam: Appropriate Responses (Sujatha BarrettP) Assessment/Plan Assessment Summary: MARSHALL/Acute Renal Failure, Hypertension, CKD Stage III Problem List: (1) Chronic kidney disease (CKD) ICD Codes: N18.9 - Chronic kidney disease, unspecified Plan: Patient has stage 3 chronic kidney disease, possibly due to Hypertensive or Diabetic renal disease. Develop MARSHALL, possibly related to contrast. Creatinine slightly increased at 1.85 from 1.63 S/P heart cath 4/4 with stent placement Plan Left lower lobe pneumonia on zosyn and vancomycin Continue to follow the urine out put and BMP. (2) Atrial fibrillation with RVR ICD Codes: I48.91 - Unspecified atrial fibrillation Plan: rate controlled on Eliquis (3) Hypertension ICD Codes: I10 - Essential (primary) hypertension Status: Chronic (4) Diabetes ICD Codes: E11.9 - Type 2 diabetes mellitus without complications Plan: Maintain BS 140 to 180 mg/dl (5) COPD (chronic obstructive pulmonary disease) ICD Codes: J44.9 - Chronic obstructive pulmonary disease, unspecified Status: Chronic Plan: Breathing treatments PRN (6) NSTEMI (non-ST elevated myocardial infarction) ICD Codes: I21.4 - Non-ST elevation (NSTEMI) myocardial infarction Status: Acute Plan: S/P stent placement Plan . (Sujatha Barrett) Problem List: (1) Chronic kidney disease (CKD) ICD Codes: N18.9 - Chronic kidney disease, unspecified Plan: Patient has stage 3 chronic kidney disease, possibly due to Hypertensive or Diabetic renal disease. Develop MARSHALL, possibly related to contrast. Creatinine slightly increased at 1.85 from 1.63 S/P heart cath 4/4 with stent placement Plan Left lower lobe pneumonia on Zosyn and vancomycin Continue to follow the urine out put and BMP. Patient seen and examined, agree with above. Creatinine increase slightly to 1.8, follow the BMP. (2) Atrial fibrillation with RVR ICD Codes: I48.91 - Unspecified atrial fibrillation Plan: rate controlled on Eliquis (3) Hypertension ICD Codes: I10 - Essential (primary) hypertension Status: Chronic (4) Diabetes ICD Codes: E11.9 - Type 2 diabetes mellitus without complications Plan: Maintain BS 140 to 180 mg/dl (5) COPD (chronic obstructive pulmonary disease) ICD Codes: J44.9 - Chronic obstructive pulmonary disease, unspecified Status: Chronic Plan: Breathing treatments PRN (6) NSTEMI (non-ST elevated myocardial infarction) ICD Codes: I21.4 - Non-ST elevation (NSTEMI) myocardial infarction Status: Acute Plan: S/P stent placement (Jessica Lay MD) Problem Qualifiers (1) Chronic kidney disease (CKD): Qualified Codes: N18.9 - Chronic kidney disease, unspecified (2) Diabetes: Sujatha Barrett Aug 07, 2017 12:24 Jessica Lay MD Aug 07, 2017 17:48
--- NOTE | 2017-08-07 15:57 | EKG ---
Date Performed: 08/07/2017 Time Performed: 12:26:30 PTAGE: 71 years EKG: ATRIAL FIBRILLATION NONSPECIFIC ST & T-WAVE ABNORMALITY ABNORMAL RHYTHM ECG PREVIOUS TRACING : 08/06/2017 07.06 No significant change from previous tracing noted. DOCTOR: Kosta Augustine Interpretating Date/Time 08/07/2017 15:55:48
[2017-08-07] MEDS: VANCOMYCIN 1,000 MG/NS 250 ML IV SCH ×2 (17:09)
--- NOTE | 2017-08-07 19:30 | HHI.FPPN ---
Subjective Remarks Patient was seen and evaluated this afternoon. She reports left-sided 2/10 non- reproducible chest pain since earlier in the morning. Topical nitroglycerin did not relieve her pain. She voices annoyance over the pain rather than concern. She is also questioning the lack of physical therapy she has received since the cath. Patient denies shortness of breath, nausea, vomiting, diarrhea and constipation. All questions were answered. (Adelaida Renteria MD R1) Objective Vitals Vital Signs Date Time Temp Pulse Resp B/P (MAP) Pulse Ox O2 Delivery O2 Flow Rate FiO2 08/07/17 16:00 97.6 81 22 129/75 (93) 99 08/07/17 12:14 95 Nasal Cannula 2.00 08/07/17 12:00 98.0 100 22 100/53 (69) 96 08/07/17 08:00 76 08/07/17 08:00 96 Nasal Cannula 2.00 100 08/07/17 08:00 97.6 52 18 101/61 (74) 94 08/07/17 04:00 98.1 94 19 103/59 (74) 97 08/07/17 00:00 97.7 70 20 120/57 (78) 94 08/06/17 22:15 97.7 97 19 116/56 (76) 95 08/06/17 22:15 Nasal Cannula 2.00 08/06/17 20:56 96 Nasal Cannula 2.50 08/06/17 20:00 98.6 86 17 124/58 (80) 95 08/06/17 20:00 86 08/06/17 19:00 95 Nasal Cannula 2.00 I/O 08/06/17 08/06/17 08/06/17 08/07/17 08/07/17 08/07/17 07:00 15:00 23:00 07:00 15:00 23:00 Intake Total 340 ml 1356.5 ml 240 ml 50 ml 1500 ml Output Total 1400 ml 550 ml 1000 ml Balance 340 ml -43.5 ml -310 ml 50 ml 500 ml Intake Oral 240 ml 944 ml 240 ml 1200 ml IV Total 100 ml 412.5 ml 50 ml 300 ml Output Urine Total 1400 ml 550 ml 1000 ml # Voids 4 # Bowel Movements 0 0 0 (Adelaida Renteria MD R1) Result Diagram: 08/07/17 0958 08/07/17 0958 Other Results EKG 08/07: ATRIAL FIBRILLATION NONSPECIFIC ST & T-WAVE ABNORMALITY ABNORMAL RHYTHM ECG. Imaging Last 72 hours Impressions Chest X-Ray 08/06/17 0000 Signed Impressions: Service Date/Time: August 12:01 - CONCLUSION: Left lower lobe pneumonia with adjacent small pleural effusion. Jhony Cheung MD Objective Remarks GENERAL: This is a well-nourished, well-developed patient, in no apparent distress. NC in place; patient receiving 2 L oxygen. She is speaking in complete sentences. SKIN: No rashes, ecchymoses or lesions. Warm and dry. HEAD: Atraumatic. Normocephalic. EYES: Pupils equal round. Extraocular motions intact. No scleral icterus. No injection or drainage. ENT: Nose without bleeding or drainage. CARDIOVASCULAR: Irregular rate and rhythm without murmurs. Chest pain non- reproducible. RESPIRATORY: Clear to auscultation. Wheezing on inspiration in lower lobes. GASTROINTESTINAL: Obese abdomen, soft, non-tender, nondistended. No hepato- splenomegaly, or palpable masses. No guarding. MUSCULOSKELETAL: Extremities without clubbing or cyanosis. No joint tenderness, effusion, or edema noted. No calf tenderness. NEUROLOGICAL: Awake and alert. Cranial nerves II through XII intact. Motor and sensory grossly within normal limits. Five out of 5 muscle strength in all muscle groups. Normal speech. Medications and IVs Current Medications Medications (Trade) Dose Ordered Sig/Hilda Route Start Time Stop Time Status Last Admin (Narcan Inj) 0.4 mg UNSCH PRN IV PUSH 07/29/17 20:00 (Neyda-Colace) 1 tab BID PO 07/29/17 21:00 08/07/17 09:52 (Milk Of Magnesia Liq) 30 ml Q12H PRN PO 07/29/17 20:00 08/03/17 10:15 (Senokot) 17.2 mg Q12H PRN PO 07/29/17 20:00 (Dulcolax Supp) 10 mg DAILY PRN RECTAL 07/29/17 20:00 (Lactulose Liq) 30 ml DAILY PRN PO 07/29/17 20:00 08/07/17 17:08 (Neurontin) 300 mg HS PO 07/29/17 21:00 08/06/17 20:38 (D50w (Vial) Inj) 50 ml UNSCH PRN IV PUSH 07/29/17 21:00 (Glucagon Inj) 1 mg UNSCH PRN OTHER 07/29/17 21:00 (NovoLOG SUPPLEMENTAL SCALE) 1 ACHS SLIDING SCALE SQ 07/29/17 21:00 08/05/17 17:12 (Morphine Inj) 2 mg Q30M PRN IV PUSH 07/29/17 21:15 07/31/17 05:32 (Nitrostat Sl) 0.4 mg Q5M PRN SL 07/29/17 21:15 07/31/17 18:05 (Duoneb Neb) 1 ampule Q6HR NEB PRN NEB 07/29/17 22:15 08/07/17 12:10 (Lipitor) 40 mg HS PO 07/30/17 21:00 08/06/17 20:37 (Lopressor Inj) 5 mg Q6H PRN IV PUSH 07/30/17 09:00 08/01/17 00:05 (Albuterol Neb) 2.5 mg Q2HR NEB PRN INH 07/30/17 09:30 08/05/17 19:13 (Protonix) 40 mg DAILY PO 07/30/17 18:00 08/07/17 09:52 Miscellaneous Information Patient in critical care unit? Ass... Q361D .XX 07/30/17 21:30 07/30/17 21:30 (Tylenol) 650 mg Q6H PRN PO 08/01/17 11:30 08/05/17 15:33 (Cardizem Cd) 240 mg DAILY PO 08/04/17 09:00 Future Hold 08/04/17 09:15 (Benadryl) 25 mg BEAUTY THERAPIST PO 08/04/17 12:15 08/08/17 12:14 08/05/17 07:09 (Valium) 5 mg BEAUTY THERAPIST PO 08/04/17 12:15 08/08/17 12:14 08/05/17 07:09 (NS Flush) 2 ml UNSCH PRN IV FLUSH 08/05/17 11:00 08/06/17 08:13 (NS Flush) 2 ml BID IV FLUSH 08/05/17 21:00 08/07/17 09:58 (Aspirin Chew) 81 mg DAILY PO 08/06/17 09:00 08/07/17 09:53 (Brilinta) 90 mg BID PO 08/06/17 09:00 08/07/17 09:52 (Atropine Inj) 0.5 mg UNSCH PRN IV PUSH 08/05/17 11:00 (Zofran Inj) 4 mg Q4H PRN IV PUSH 08/05/17 11:00 08/05/17 10:03 (Lopressor) 50 mg Q12HR PO 08/05/17 21:00 08/07/17 09:52 (Cardizem) 60 mg Q6H PO 08/05/17 16:00 08/07/17 15:09 (Nitroglycerin 2% Oint) 0.75 inch Q6H PRN TOPICAL 08/05/17 22:45 08/07/17 12:04 Pharmacy Profile Note 0 ml @ 0 mls/hr UNSCH OTHER 08/06/17 14:00 Piperacillin Sod/ Tazobactam Sod 50 ml @ 100 mls/hr Q6H IV 08/06/17 20:00 08/07/17 15:09 Vancomycin HCl 1000 mg/Sodium Chloride 250 ml @ 250 mls/hr Q24H IV 08/07/17 18:00 08/07/17 17:09 Miscellaneous Information SPECIFIC LAB TO BE DRAWN:[facility] TROUGH DATE TO BE DR... ONCE ONCE .XX 08/09/17 17:45 08/09/17 17:46 (Eliquis) 2.5 mg BID PO 08/07/17 11:00 08/07/17 11:44 (Adelaida Renteria MD R1) Urinary Catheter: No (Adelaida Renteria MD R1) Vascular Central Line Catheter: No (Adelaida Renteria MD R1) A/P Assessment and Plan Patient is a 71-year-old female with a past medical history of CAD s/p CABG, PVD , DM, HTN, COPD brought to the ED via [facility] after she developed symptoms of severe chest pain and shortness of breath. In he ED patient was found to be in A. fib with RVR, elevated troponin of 0.39 with heart rate ranging from 110-- 160s and oxygen saturations in the low 90s. Patient admitted for management of NSTEMI and respiratory distress. Nephrology has been consulted for MARSHALL on CKD, thought to be due to contrast for imaging. Creatinine downtrending since admission on 07/29, and catheterization completed on 08/05. Catheterization reveals three-vessel coronary artery disease, with critical left main disease stented and proximal circumflex artery stented. Discharge Planning Pending clinical improvement. PT recommends PT at rehab. (Adelaida Renteria MD R1) Attending Attestation Patient seen, examined, and discussed with resident team. I agree with assessment and management as documented and discussed with me. PT reports mild chest pain, 2/10, since this morning. Unchanged with nitropaste. EKGs, troponins reassuring. PT entering the room at the time of our exam. Anticipate discharge to SNF in the next few days. (Dionne Metcalf MD) Problem List: (1) NSTEMI (non-ST elevated myocardial infarction) ICD Codes: I21.4 - Non-ST elevation (NSTEMI) myocardial infarction Status: Acute Plan: Catheterization reveals three-vessel coronary artery disease, with critical left main disease stented and proximal circumflex artery stented. Cardiology recommendation after cath 08/05: continue Brilinta, Aspirin, f/u creat , will wait at least one more day before starting anticoagulation 08/07: Patient reports 2/10 non-reproducible left-sided chest pain not relieved with nitroglycerin. Troponin elevated but downtrending. EKG with ATRIAL FIBRILLATION NONSPECIFIC ST & T-WAVE ABNORMALITY ABNORMAL RHYTHM ECG. Serial troponin and EKG pending. Follow-up. PT assessment recommends patient will need home health with home PT at discharge. Hospital Course: On admission: * EKG: Atrial fib with RVR * Troponin elevated at 0.39 -> 2.18 --> 1.76 * In the ED started on heparin drip, given Cardizem 10 mg IV1, Lasix 40mg IV x1 , morphine 4mg x1, nitroglycerin x1, solumedrol 125mg IV x1, duoneb x3. * Bipap transitioned to NC in ED * Placed on telemetry Cardiology consulted -cardiac catheterization 08/05. Heparin drip protocol. ASA 325mg po daily. Lipitor 40mg po HS. Cardizem for atrial fibrillation -240 mg daily. Metoprolol 50 mg twice a day. Nitroglycerin ointment every 6 scheduled. (2) Atrial fibrillation with RVR ICD Codes: I48.91 - Unspecified atrial fibrillation Plan: Irregular rate and rhythm today. HR <100. Metoprolol 50mg q12hr. Metoprolol 5mg q6hr IV PRN HR >110. Eliquis 2.5mg PO BID. Hospital Course: * On admission patient found to be in A. fib with RVR on EKG. Unclear whether this is new onset although patient stated that she has palpitation "all the time ". Patient not on warfarin or any other rhythm alternating agent. * Patient asymptomatic, with HR ranging 110-160 on admission. * Patient received 1 dose of Cardizem 10 mg IV in ED. * Telemetry. * Will continue to monitor. 07/30: Metoprolol Tartrate 25mg po BID, Metoprolol Tartrate 5mg IV push PRN for HR >110 07/31: HR 130s this AM. Cardizem 15mg IV x 1 then cardizem PO 240mg daily per cardiology 08/03: Increased dose of metoprolol to 40 mg twice a day, as well as diltiazem 360 mg daily. Having increased heart rate with minimal activity. (3) COPD (chronic obstructive pulmonary disease) ICD Codes: J44.9 - Chronic obstructive pulmonary disease, unspecified Status: Chronic Plan: Shortness of breath 08/07. Reports no relief with breathing treatments. Differential includes atelectasis versus COPD exacerbation versus cardiac origin. DuoNeb q6hr PRN Shortness of breath Albuterol 2.5mg q2hr PRN Shortness of breath Incentive spirometry. Hospital Course: s/p treatment for COPD exacerbation. Levaquin 750mg once, 500mg [id number] (due to creatinine clearance less than 30) for 5 days ( 07/30 - 08/04, 2 doses only given q48 for MARSHALL). Prednisone 50mg daily for 5 days (07/30- 08/04). Chest x-ray on admission 07/29: Mild bibasilar infiltrates, interstitial changes. Chest x-ray on 08/02: Mild CHF with mild bilateral effusions, no consolidations. (4) Diabetes ICD Codes: E11.9 - Type 2 diabetes mellitus without complications Plan: Blood glucose range over 24hr: 110-154. Home metformin medication held. Placed on SSI low dose. Hypoglycemia protocol. Monitor AccuChecks. (5) Hypertension ICD Codes: I10 - Essential (primary) hypertension Status: Chronic Plan: Patient with history of hypertension. * Home meds held. * Monitor. (6) Chronic kidney disease (CKD) ICD Codes: N18.9 - Chronic kidney disease, unspecified Plan: Cr 1.85 on 08/07. Small increase likely due to cath. Will continue to trend and monitor closely. Avoid nephrotoxic agents. Will continue to trend daily. (7) Nutrition, metabolism, and development symptoms ICD Codes: R63.8 - Other symptoms and signs concerning food and fluid intake Plan: Fluids: Tolerating PO. Electrolytes: Monitor and replete as necessary. Nutrition: Heart healthy diet. DVT prophylaxis: SCDs, Eliquis (Adelaida Renteria MD R1) Problem Qualifiers (1) Diabetes: (2) Chronic kidney disease (CKD): Qualified Codes: N18.9 - Chronic kidney disease, unspecified Adelaida Renteria MD R1 Aug 07, 2017 19:30 Dionne Metcalf MD Aug 07, 2017 20:57
[2017-08-07] MEDS: ATORVASTATIN 40 MG TAB PO SCH (19:57)
[2017-08-07] MEDS: GABAPENTIN 300 MG CAP PO SCH (19:58)
[2017-08-08] VITALS (9 sets, daily range): BP systolic 113–124; BP diastolic 65–78; PULSE 67–105; RESP 16–20; TEMP 97.7–99.3; O2SAT 91–98
[2017-08-08] MEDS: PIPERACIL-TAZO 3.375 GM PREMIX 50 ML IV SCH ×4 (03:01→20:35)
[2017-08-08] MEDS: DILTIAZEM HCL 60 MG TAB PO SCH ×4 (04:10→21:31)
[2017-08-08] MEDS: INSULIN ASPART SUPPLEMENTAL SCALE SQ SCH ×4 (07:54→21:33)
[2017-08-08 08:59] LABS: AUTOMATED NEUTROPHIL # 8.4 TH/MM3 (1.8-7.7); BASOPHIL # 0.1 TH/MM3 (0-0.2); BASOPHIL % 0.5 % (0.0-2.0); EOSINOPHIL # 0.4 TH/MM3 (0-0.4); EOSINOPHIL % 3.2 % (0.0-4.0); HEMATOCRIT 34.6 % (35.0-46.0); HEMOGLOBIN 11.3 GM/DL (11.6-15.3); LYMPH % 12.1 % (9.0-44.0); LYMPHOCYTE # 1.4 TH/MM3 (1.0-4.8); MEAN CELL VOLUME 96.6 FL (80.0-100.0); MEAN CORPUSCULAR HEMOGLOBIN 31.7 PG (27.0-34.0); MEAN CORPUSCULAR HGB CONC 32.8 % (32.0-36.0); MEAN PLATELET VOLUME 8.4 FL (7.0-11.0); MONO % 11.5 % (0.0-8.0); MONOCYTE # 1.3 TH/MM3 (0-0.9); NEUT % 72.7 % (16.0-70.0); PLATELET COUNT 241 TH/MM3 (150-450); RED BLOOD COUNT 3.58 MIL/MM3 (4.00-5.30); RED CELL DISTRIBUTION WIDTH 13.6 % (11.6-17.2); WHITE BLOOD COUNT 11.6 TH/MM3 (4.0-11.0)
[2017-08-08 09:00] LABS: BICARBONATE 25.4 MEQ/L (21.0-32.0); CALCIUM 8.5 MG/DL (8.5-10.1); CREATININE 1.83 MG/DL (0.50-1.00)
[2017-08-08] MEDS: DOCUSATE SODIUM 50 MG/SENNA 8.6 MG TAB PO SCH ×2 (09:00→20:35)
[2017-08-08] MEDS: TICAGRELOR 90 MG TAB PO SCH ×2 (09:23→21:31)
[2017-08-08] MEDS: PANTOPRAZOLE SOD 40 MG DELAYED RELEASE TAB PO SCH (09:23)
[2017-08-08] MEDS: ASPIRIN 81 MG CHEW TAB PO SCH (09:23)
[2017-08-08] MEDS: APIXABAN 2.5 MG TABLET PO SCH ×2 (09:24→20:36)
[2017-08-08] MEDS: SODIUM CHLORIDE 0.9% FLUSH 10 ML FLUSH IV FLUSH SCH ×2 (09:25→20:36)
[2017-08-08] MEDS: METOPROLOL TARTRATE 50 MG TAB PO SCH ×2 (10:12→20:35)
[2017-08-08] MEDS: RESP: ALBUTEROL 2.5 MG/IPRATROPIUM 0.5 MG NEB (PRN) NEB (15:30)
[2017-08-08] MEDS: VANCOMYCIN 1,000 MG/NS 250 ML IV SCH ×2 (17:11)
--- NOTE | 2017-08-08 17:17 | EKG ---
Date Performed: 08/07/2017 Time Performed: 17:21:59 PTAGE: 71 years EKG: ATRIAL FIBRILLATION NONSPECIFIC ST-T CHANGE Since the previous tracing, no significant gaytan ge noted ABNORMAL ECG PREVIOUS TRACING : 08/07/2017 12.26 DOCTOR: Jose F Soto Interpretating Date/Time 08/08/2017 17:17:05
--- NOTE | 2017-08-08 17:53 | HHI.NPPN ---
Subjective General Problems: Heart Disease Renal Failure: Chronic, Acute, Stage III History of Present Illness 71-year-old female with past medical history of hypertension, diabetes mellitus, ischemic heart disease, post coronary artery bypass grafting, chronic obstructive pulmonary disease, diabetes mellitus, peripheral vascular disease, and possible chronic kidney disease, who came to the hospital with atrial fibrillation and rapid ventricular rate. I was called to see the patient because of elevated BUN and creatinine. The patient has a creatinine of 1.59 on admission. Additional Remarks Patient Mild lower extremity edema. Review of Systems General Constitutional: Fatigue Respiratory Lungs: SOB Respiratory Remarks Mild Cardiovascular Cardiac: Chest Pain, MARQUEZ Gastrointestinal GI Remarks No abdominal pain Objective Data Data Vital Signs Date Time Temp Pulse Resp B/P (MAP) Pulse Ox O2 Delivery O2 Flow Rate FiO2 08/08/17 16:00 98.2 80 19 114/78 (90) 08/08/17 16:00 82 08/08/17 12:00 97.8 88 18 118/67 (84) 94 08/08/17 12:00 100 08/08/17 10:42 98 Nasal Cannula 1.00 08/08/17 08:00 97.7 85 20 124/78 (93) 91 08/08/17 08:00 Nasal Cannula 2.00 100 08/08/17 08:00 94 08/08/17 04:12 Nasal Cannula 2.00 08/08/17 04:00 88 08/08/17 04:00 98.5 72 16 113/65 (81) 94 08/08/17 00:00 98.9 105 17 116/65 (82) 96 08/08/17 00:00 Nasal Cannula 2.00 08/08/17 00:00 67 08/07/17 20:00 83 08/07/17 20:00 97.8 87 17 124/59 (80) 95 08/07/17 19:30 Nasal Cannula 2.00 -: 08/08/17 0750 08/08/17 0711 Physical Exam General Appearance: No Acute Distress, Comfortable Eyes Eye Exam: Pupils Equal Throat Throat Exam: Oral Mucosa [place] & Moist Neck Neck Exam: Neck Supple Pulmonary Resp Exam: Breath Sounds Equal, No Distress, Diminished Breath Sounds Cardiology CV Exam: Regular, Normal Sinus Rhythm Gastrointestinal/Abdomen GI Exam: Soft, Non-Tender, Bowel Sounds Present Extremeties Extremities Exam: Trace Edema Neurologic Neuro Exam: Alert, Awake, Oriented Psychiatric Psych Exam: Appropriate Responses Assessment/Plan Assessment Summary: MARSHALL/Acute Renal Failure, Hypertension, CKD Stage III Problem List: (1) Chronic kidney disease (CKD) ICD Codes: N18.9 - Chronic kidney disease, unspecified Plan: Patient has stage 3 chronic kidney disease, possibly due to Hypertensive or Diabetic renal disease. Develop MARSHALL, possibly related to contrast. Creatinine slightly increased at 1.85 from 1.63 S/P heart cath 08/05 with stent placement Plan Left lower lobe pneumonia on Zosyn and vancomycin Continue to follow the urine out put and BMP. Patient seen and examined, agree with above. Creatinine increase slightly to 1.8, follow the BMP. Dr. Lay to follow (2) Atrial fibrillation with RVR ICD Codes: I48.91 - Unspecified atrial fibrillation Plan: rate controlled on Eliquis (3) Hypertension ICD Codes: I10 - Essential (primary) hypertension Status: Chronic (4) Diabetes ICD Codes: E11.9 - Type 2 diabetes mellitus without complications Plan: Maintain BS 140 to 180 mg/dl (5) COPD (chronic obstructive pulmonary disease) ICD Codes: J44.9 - Chronic obstructive pulmonary disease, unspecified Status: Chronic Plan: Breathing treatments PRN (6) NSTEMI (non-ST elevated myocardial infarction) ICD Codes: I21.4 - Non-ST elevation (NSTEMI) myocardial infarction Status: Acute Plan: S/P stent placement Plan . Problem Qualifiers (1) Chronic kidney disease (CKD): Qualified Codes: N18.9 - Chronic kidney disease, unspecified (2) Diabetes: Dang Conde MD Aug 08, 2017 17:53
--- NOTE | 2017-08-08 17:54 | HHI.FPPN ---
Subjective Remarks Patient was seen and evaluated this morning. She feels well overall. Patient denies shortness of breath, chest pain and abdominal pain, nausea, vomiting, diarrhea and constipation. All questions were answered. (Adelaida Renteria MD R1) Objective Vitals Vital Signs Date Time Temp Pulse Resp B/P (MAP) Pulse Ox O2 Delivery O2 Flow Rate FiO2 08/08/17 16:00 98.2 80 19 114/78 (90) 08/08/17 16:00 82 08/08/17 12:00 97.8 88 18 118/67 (84) 94 08/08/17 12:00 100 08/08/17 10:42 98 Nasal Cannula 1.00 08/08/17 08:00 97.7 85 20 124/78 (93) 91 08/08/17 08:00 Nasal Cannula 2.00 100 08/08/17 08:00 94 08/08/17 04:12 Nasal Cannula 2.00 08/08/17 04:00 88 08/08/17 04:00 98.5 72 16 113/65 (81) 94 08/08/17 00:00 98.9 105 17 116/65 (82) 96 08/08/17 00:00 Nasal Cannula 2.00 08/08/17 00:00 67 08/07/17 20:00 83 08/07/17 20:00 97.8 87 17 124/59 (80) 95 08/07/17 19:30 Nasal Cannula 2.00 I/O 08/07/17 08/07/17 08/07/17 08/08/17 08/08/17 08/08/17 07:00 15:00 23:00 07:00 15:00 23:00 Intake Total 240 ml 50 ml 1500 ml 360 ml Output Total 550 ml 1000 ml Balance -310 ml 50 ml 500 ml 360 ml Intake Oral 240 ml 1200 ml 360 ml IV Total 50 ml 300 ml Output Urine Total 550 ml 1000 ml # Voids 3 # Bowel Movements 0 0 1 (Adelaida Renteria MD R1) Result Diagram: 08/08/17 0750 08/08/17 0711 Imaging Last 72 hours Impressions Chest X-Ray 08/06/17 0000 Signed Impressions: Service Date/Time: August 12:01 - CONCLUSION: Left lower lobe pneumonia with adjacent small pleural effusion. Jhony Cheung MD Objective Remarks GENERAL: This is a well-nourished, well-developed patient, in no apparent distress. NC in place; patient receiving 2 L oxygen. She is speaking in complete sentences. SKIN: No rashes, ecchymoses or lesions. Warm and dry. HEAD: Atraumatic. Normocephalic. EYES: Pupils equal round. Extraocular motions intact. No scleral icterus. No injection or drainage. ENT: Nose without bleeding or drainage. CARDIOVASCULAR: Regular rate and rhythm without murmurs. RESPIRATORY: Clear to auscultation. Wheezing on inspiration in lower lobes. GASTROINTESTINAL: Obese abdomen, soft, non-tender, nondistended. No hepato- splenomegaly, or palpable masses. No guarding. MUSCULOSKELETAL: Extremities without clubbing or cyanosis. No joint tenderness, effusion, or edema noted. No calf tenderness. NEUROLOGICAL: Awake and alert. Cranial nerves II through XII intact. Motor and sensory grossly within normal limits. Five out of 5 muscle strength in all muscle groups. Normal speech. Medications and IVs Current Medications Medications (Trade) Dose Ordered Sig/Hilda Route Start Time Stop Time Status Last Admin (Narcan Inj) 0.4 mg UNSCH PRN IV PUSH 07/29/17 20:00 (Neyda-Colace) 1 tab BID PO 07/29/17 21:00 08/07/17 19:58 (Milk Of Magnesia Liq) 30 ml Q12H PRN PO 07/29/17 20:00 08/03/17 10:15 (Senokot) 17.2 mg Q12H PRN PO 07/29/17 20:00 (Dulcolax Supp) 10 mg DAILY PRN RECTAL 07/29/17 20:00 (Lactulose Liq) 30 ml DAILY PRN PO 07/29/17 20:00 08/07/17 17:08 (Neurontin) 300 mg HS PO 07/29/17 21:00 08/07/17 19:58 (D50w (Vial) Inj) 50 ml UNSCH PRN IV PUSH 07/29/17 21:00 (Glucagon Inj) 1 mg UNSCH PRN OTHER 07/29/17 21:00 (NovoLOG SUPPLEMENTAL SCALE) 1 ACHS SLIDING SCALE SQ 07/29/17 21:00 08/07/17 20:07 (Morphine Inj) 2 mg Q30M PRN IV PUSH 07/29/17 21:15 07/31/17 05:32 (Nitrostat Sl) 0.4 mg Q5M PRN SL 07/29/17 21:15 07/31/17 18:05 (Duoneb Neb) 1 ampule Q6HR NEB PRN NEB 07/29/17 22:15 08/08/17 15:30 (Lipitor) 40 mg HS PO 07/30/17 21:00 08/07/17 19:57 (Lopressor Inj) 5 mg Q6H PRN IV PUSH 07/30/17 09:00 08/01/17 00:05 (Albuterol Neb) 2.5 mg Q2HR NEB PRN INH 07/30/17 09:30 08/05/17 19:13 (Protonix) 40 mg DAILY PO 07/30/17 18:00 08/08/17 09:23 Miscellaneous Information Patient in critical care unit? Ass... Q361D .XX 07/30/17 21:30 07/30/17 21:30 (Tylenol) 650 mg Q6H PRN PO 08/01/17 11:30 08/05/17 15:33 (Cardizem Cd) 240 mg DAILY PO 08/04/17 09:00 Future Hold 08/04/17 09:15 (NS Flush) 2 ml UNSCH PRN IV FLUSH 08/05/17 11:00 08/06/17 08:13 (NS Flush) 2 ml BID IV FLUSH 08/05/17 21:00 08/08/17 09:25 (Aspirin Chew) 81 mg DAILY PO 08/06/17 09:00 08/08/17 09:23 (Brilinta) 90 mg BID PO 08/06/17 09:00 08/08/17 09:23 (Atropine Inj) 0.5 mg UNSCH PRN IV PUSH 08/05/17 11:00 (Zofran Inj) 4 mg Q4H PRN IV PUSH 08/05/17 11:00 08/05/17 10:03 (Lopressor) 50 mg Q12HR PO 08/05/17 21:00 08/08/17 10:12 (Cardizem) 60 mg Q6H PO 08/05/17 16:00 08/08/17 17:10 (Nitroglycerin 2% Oint) 0.75 inch Q6H PRN TOPICAL 08/05/17 22:45 08/07/17 12:04 Pharmacy Profile Note 0 ml @ 0 mls/hr UNSCH OTHER 08/06/17 14:00 Piperacillin Sod/ Tazobactam Sod 50 ml @ 100 mls/hr Q6H IV 08/06/17 20:00 08/08/17 13:40 Vancomycin HCl 1000 mg/Sodium Chloride 250 ml @ 250 mls/hr Q24H IV 08/07/17 18:00 08/08/17 17:11 Miscellaneous Information SPECIFIC LAB TO BE DRAWN:VANCO TROUGH DATE TO BE DR... ONCE ONCE .XX 08/09/17 17:45 08/09/17 17:46 (Eliquis) 2.5 mg BID PO 08/07/17 11:00 08/08/17 09:24 (Adelaida Renteria MD R1) Urinary Catheter: No (Adelaida Renteria MD R1) Vascular Central Line Catheter: No (Adelaida Renteria MD R1) A/P Assessment and Plan Patient is a 71-year-old female with a past medical history of CAD s/p CABG, PVD , DM, HTN, COPD brought to the ED via [facility] after she developed symptoms of severe chest pain and shortness of breath. In he ED patient was found to be in A. fib with RVR, elevated troponin of 0.39 with heart rate ranging from 110-- 160s and oxygen saturations in the low 90s. Patient admitted for management of NSTEMI and respiratory distress. Nephrology has been consulted for MARSHALL on CKD, thought to be due to contrast for imaging. Creatinine downtrending since admission on 07/29, and catheterization completed on 08/05. Catheterization reveals three-vessel coronary artery disease, with critical left main disease stented and proximal circumflex artery stented. Discharge Planning Pending clinical improvement. PT recommends PT at rehab. (Adelaida Renteria MD R1) Attending Attestation Patient seen,examined, and discussed with Dr Renteria. I agree with assessment and management as documented and discussed with me. Pt without new complaints. Denies SOB, chest pain. Anticipate discharge Thursday, once SNF arranged. (Dionne Metcalf MD) Problem List: (1) NSTEMI (non-ST elevated myocardial infarction) ICD Codes: I21.4 - Non-ST elevation (NSTEMI) myocardial infarction Status: Acute Plan: Catheterization reveals three-vessel coronary artery disease, with critical left main disease stented and proximal circumflex artery stented. Cardiology recommendation after cath 08/05: continue Brilinta, Aspirin, f/u creat , will wait at least one more day before starting anticoagulation 08/07: Patient reports 06/13 non-reproducible left-sided chest pain not relieved with nitroglycerin. Troponin elevated but downtrending. EKG with ATRIAL FIBRILLATION NONSPECIFIC ST & T-WAVE ABNORMALITY ABNORMAL RHYTHM ECG. Serial troponin and EKG pending. Follow-up. PT assessment recommends patient will need home health with home PT at discharge. 08/08: Patient reports resolution of chest pain. Discharge likely on Thursday. Hospital Course: On admission: * EKG: Atrial fib with RVR * Troponin elevated at 0.39 -> 2.18 --> 1.76 * In the ED started on heparin drip, given Cardizem 10 mg IV1, Lasix 40mg IV x1 , morphine 4mg x1, nitroglycerin x1, solumedrol 125mg IV x1, duoneb x3. * Bipap transitioned to NC in ED * Placed on telemetry Cardiology consulted -cardiac catheterization 08/05. Heparin drip protocol. ASA 325mg po daily. Lipitor 40mg po HS. Cardizem for atrial fibrillation -240 mg daily. Metoprolol 50 mg twice a day. Nitroglycerin ointment every 6 scheduled. (2) Atrial fibrillation with RVR ICD Codes: I48.91 - Unspecified atrial fibrillation Plan: Regular rate and rhythm today. HR <100. Metoprolol 50mg q12hr. Metoprolol 5mg q6hr IV PRN HR >110. Eliquis 2.5mg PO BID. Hospital Course: * On admission patient found to be in A. fib with RVR on EKG. Unclear whether this is new onset although patient stated that she has palpitation "all the time ". Patient not on warfarin or any other rhythm alternating agent. * Patient asymptomatic, with HR ranging 110-160 on admission. * Patient received 1 dose of Cardizem 10 mg IV in ED. * Telemetry. * Will continue to monitor. 07/30: Metoprolol Tartrate 25mg po BID, Metoprolol Tartrate 5mg IV push PRN for HR >110 07/31: HR 130s this AM. Cardizem 15mg IV x 1 then cardizem PO 240mg daily per cardiology 08/03: Increased dose of metoprolol to 40 mg twice a day, as well as diltiazem 360 mg daily. Having increased heart rate with minimal activity. (3) COPD (chronic obstructive pulmonary disease) ICD Codes: J44.9 - Chronic obstructive pulmonary disease, unspecified Status: Chronic Plan: Continues with shortness of breath 08/08. Reports no relief with breathing treatments. Differential includes atelectasis versus COPD exacerbation versus cardiac origin. DuoNeb q6hr PRN Shortness of breath Albuterol 2.5mg q2hr PRN Shortness of breath Incentive spirometry. Hospital Course: s/p treatment for COPD exacerbation. Levaquin 750mg once, 500mg [id number] (due to creatinine clearance less than 30) for 5 days ( 07/30 - 08/04, 2 doses only given q48 for MARSHALL). Prednisone 50mg daily for 5 days (07/30- 08/04). Chest x-ray on admission 07/29: Mild bibasilar infiltrates, interstitial changes. Chest x-ray on 08/02: Mild CHF with mild bilateral effusions, no consolidations. (4) Diabetes ICD Codes: E11.9 - Type 2 diabetes mellitus without complications Plan: Blood glucose range over 24hr: 109-143. Home metformin medication held. Placed on SSI low dose. Hypoglycemia protocol. Monitor AccuChecks. (5) Hypertension ICD Codes: I10 - Essential (primary) hypertension Status: Chronic Plan: Patient with history of hypertension. * Home meds held. * Monitor. (6) Chronic kidney disease (CKD) ICD Codes: N18.9 - Chronic kidney disease, unspecified Plan: Cr 1.83 on 08/08. Will continue to trend and monitor closely. Avoid nephrotoxic agents. Will continue to trend daily. (7) Nutrition, metabolism, and development symptoms ICD Codes: R63.8 - Other symptoms and signs concerning food and fluid intake Plan: Fluids: Tolerating PO. Electrolytes: Monitor and replete as necessary. Nutrition: Heart healthy diet. DVT prophylaxis: SCDs, Eliquis (Adelaida Renteria MD R1) Problem Qualifiers (1) Diabetes: (2) Chronic kidney disease (CKD): Qualified Codes: N18.9 - Chronic kidney disease, unspecified Adelaida Renteria MD R1 Aug 08, 2017 17:54 Dionne Metcalf MD Aug 09, 2017 08:10
[2017-08-08] MEDS: ACETAMINOPHEN 325 MG TAB PO PRN (19:34)
[2017-08-08] MEDS: GABAPENTIN 300 MG CAP PO SCH (20:35)
[2017-08-08] MEDS: ATORVASTATIN 40 MG TAB PO SCH (20:35)
[2017-08-08] MEDS ORDERED: ACETAMINOPHEN 325 MG TAB PO PRN (21:00)
[2017-08-08] MEDS: ACETAMINOPHEN/HYDROcodone 325 MG/5 MG TAB PO PRN (21:31)
[2017-08-09] VITALS (10 sets, daily range): BP systolic 116–131; BP diastolic 56–66; PULSE 61–100; RESP 19–22; TEMP 97.4–98; O2SAT 95–98
[2017-08-09] MEDS: ACETAMINOPHEN/HYDROcodone 325 MG/5 MG TAB PO PRN ×3 (02:13→18:33)
[2017-08-09] MEDS: PIPERACIL-TAZO 3.375 GM PREMIX 50 ML IV SCH ×4 (02:13→20:24)
[2017-08-09] MEDS: DILTIAZEM HCL 60 MG TAB PO SCH ×4 (04:29→22:44)
[2017-08-09 07:57] LABS: AUTOMATED NEUTROPHIL # 8.2 TH/MM3 (1.8-7.7); BASOPHIL % 0.3 % (0.0-2.0); EOSINOPHIL # 0.4 TH/MM3 (0-0.4); EOSINOPHIL % 3.2 % (0.0-4.0); HEMATOCRIT 34.7 % (35.0-46.0); HEMOGLOBIN 11.2 GM/DL (11.6-15.3); LYMPH % 14.2 % (9.0-44.0); LYMPHOCYTE # 1.6 TH/MM3 (1.0-4.8); MEAN CELL VOLUME 97.7 FL (80.0-100.0); MEAN CORPUSCULAR HEMOGLOBIN 31.6 PG (27.0-34.0); MEAN CORPUSCULAR HGB CONC 32.3 % (32.0-36.0); MEAN PLATELET VOLUME 8.7 FL (7.0-11.0); MONO % 11.4 % (0.0-8.0); MONOCYTE # 1.3 TH/MM3 (0-0.9); NEUT % 70.9 % (16.0-70.0); PLATELET COUNT 222 TH/MM3 (150-450); RED BLOOD COUNT 3.54 MIL/MM3 (4.00-5.30); RED CELL DISTRIBUTION WIDTH 13.6 % (11.6-17.2); WHITE BLOOD COUNT 11.6 TH/MM3 (4.0-11.0)
[2017-08-09] MEDS: INSULIN ASPART SUPPLEMENTAL SCALE SQ SCH ×4 (08:00→20:44)
[2017-08-09 08:13] LABS: ALBUMIN 2.9 GM/DL (3.4-5.0); ALT (GPT) 21 U/L (10-53); AST (GOT) 9 U/L (15-37); BICARBONATE 25.9 MEQ/L (21.0-32.0); BLOOD UREA NITROGEN 22 MG/DL (7-18); CALCIUM 8.6 MG/DL (8.5-10.1); CHLORIDE 104 MEQ/L (98-107); CREATININE 1.74 MG/DL (0.50-1.00); GLOMERULAR FILTRATION RATE 29 ML/MIN (>89); GLUCOSE,RANDOM 89 MG/DL (74-106); SODIUM (NA) 139 MEQ/L (136-145)
[2017-08-09 08:16] LABS: ALKALINE PHOSPHATASE 55 U/L (45-117); TOTAL BILIRUBIN ADULT 0.5 MG/DL (0.2-1.0); TOTAL PROTEIN 6.5 GM/DL (6.4-8.2)
[2017-08-09] MEDS: PANTOPRAZOLE SOD 40 MG DELAYED RELEASE TAB PO SCH (08:54)
[2017-08-09] MEDS: APIXABAN 2.5 MG TABLET PO SCH ×2 (08:54→20:26)
[2017-08-09] MEDS: ASPIRIN 81 MG CHEW TAB PO SCH (08:54)
[2017-08-09] MEDS: METOPROLOL TARTRATE 50 MG TAB PO SCH ×2 (08:54→20:25)
[2017-08-09] MEDS: TICAGRELOR 90 MG TAB PO SCH ×2 (08:54→20:25)
[2017-08-09] MEDS: DOCUSATE SODIUM 50 MG/SENNA 8.6 MG TAB PO SCH ×2 (08:55→20:25)
[2017-08-09] MEDS: SODIUM CHLORIDE 0.9% FLUSH 10 ML FLUSH IV FLUSH SCH ×2 (08:56→20:24)
[2017-08-09] MEDS: RESP: ALBUTEROL 2.5 MG/IPRATROPIUM 0.5 MG NEB (PRN) NEB ×3 (12:45→21:34)
--- NOTE | 2017-08-09 12:47 | HHI.FPPN ---
Subjective Remarks Patient was seen and evaluated this morning. She feels well overall. Patient denies shortness of breath at rest, chest pain and abdominal pain, nausea, vomiting, diarrhea and constipation. Patient would like to shower and freshen up. All questions were answered. (Adelaida Renteria MD R1) Objective Vitals Vital Signs Date Time Temp Pulse Resp B/P (MAP) Pulse Ox O2 Delivery O2 Flow Rate FiO2 08/09/17 12:00 68 08/09/17 08:00 97.4 65 22 120/63 (82) 98 08/09/17 08:00 Nasal Cannula 2.00 100 08/09/17 07:04 97.8 86 20 116/61 (79) 97 08/09/17 03:48 61 08/09/17 00:08 Nasal Cannula 2.00 08/09/17 00:08 98.0 69 20 117/56 (76) 98 08/08/17 23:41 80 08/08/17 20:34 Nasal Cannula 2.00 08/08/17 20:34 99.3 89 20 123/72 (89) 95 08/08/17 19:55 81 08/08/17 16:00 98.2 80 19 114/78 (90) 08/08/17 16:00 82 I/O 08/08/17 08/08/17 08/08/17 08/09/17 08/09/17 08/09/17 07:00 15:00 23:00 07:00 15:00 23:00 Intake Total 360 ml 200 ml 2050 ml 50 ml 240 ml Balance 360 ml 200 ml 2050 ml 50 ml 240 ml Intake Oral 360 ml 1750 ml 240 ml IV Total 200 ml 300 ml 50 ml # Voids 3 6 2 # Bowel Movements 1 4 (Adelaida Renteria MD R1) Result Diagram: 08/09/17 0650 08/09/17 0650 Objective Remarks GENERAL: This is a well-nourished, well-developed patient, in no apparent distress. NC in place; patient receiving 2 L oxygen. She is speaking in complete sentences. SKIN: Warm and dry. HEAD: Atraumatic. Normocephalic. EYES: Pupils equal round. Extraocular motions intact. No scleral icterus. No injection or drainage. ENT: Nose without bleeding or drainage. CARDIOVASCULAR: Regular rate and rhythm without murmurs. RESPIRATORY: Clear to auscultation. Mild crackles noted in lower lobes. GASTROINTESTINAL: Obese abdomen, soft, non-tender, nondistended. No hepato- splenomegaly, or palpable masses. No guarding. MUSCULOSKELETAL: Extremities without clubbing or cyanosis. No joint tenderness, effusion, or edema noted. No calf tenderness. NEUROLOGICAL: Awake and alert. Cranial nerves II through XII intact. Motor and sensory grossly within normal limits. Five out of 5 muscle strength in all muscle groups. Normal speech. Medications and IVs Current Medications Medications (Trade) Dose Ordered Sig/Hilda Route Start Time Stop Time Status Last Admin (Narcan Inj) 0.4 mg UNSCH PRN IV PUSH 07/29/17 20:00 (Neyda-Colace) 1 tab BID PO 07/29/17 21:00 08/07/17 19:58 (Milk Of Magnesia Liq) 30 ml Q12H PRN PO 07/29/17 20:00 08/03/17 10:15 (Senokot) 17.2 mg Q12H PRN PO 07/29/17 20:00 (Dulcolax Supp) 10 mg DAILY PRN RECTAL 07/29/17 20:00 (Lactulose Liq) 30 ml DAILY PRN PO 07/29/17 20:00 08/07/17 17:08 (Neurontin) 300 mg HS PO 07/29/17 21:00 08/08/17 20:35 (D50w (Vial) Inj) 50 ml UNSCH PRN IV PUSH 07/29/17 21:00 (Glucagon Inj) 1 mg UNSCH PRN OTHER 07/29/17 21:00 (NovoLOG SUPPLEMENTAL SCALE) 1 ACHS SLIDING SCALE SQ 07/29/17 21:00 08/08/17 21:33 (Morphine Inj) 2 mg Q30M PRN IV PUSH 07/29/17 21:15 07/31/17 05:32 (Nitrostat Sl) 0.4 mg Q5M PRN SL 07/29/17 21:15 07/31/17 18:05 (Duoneb Neb) 1 ampule Q6HR NEB PRN NEB 07/29/17 22:15 08/08/17 15:30 (Lipitor) 40 mg HS PO 07/30/17 21:00 08/08/17 20:35 (Lopressor Inj) 5 mg Q6H PRN IV PUSH 07/30/17 09:00 08/01/17 00:05 (Albuterol Neb) 2.5 mg Q2HR NEB PRN INH 07/30/17 09:30 08/05/17 19:13 (Protonix) 40 mg DAILY PO 07/30/17 18:00 08/09/17 08:54 Miscellaneous Information Patient in critical care unit? Ass... Q361D .XX 07/30/17 21:30 07/30/17 21:30 (Cardizem Cd) 240 mg DAILY PO 08/04/17 09:00 Future Hold 08/04/17 09:15 (NS Flush) 2 ml UNSCH PRN IV FLUSH 08/05/17 11:00 08/06/17 08:13 (NS Flush) 2 ml BID IV FLUSH 08/05/17 21:00 08/08/17 20:36 (Aspirin Chew) 81 mg DAILY PO 08/06/17 09:00 08/09/17 08:54 (Brilinta) 90 mg BID PO 08/06/17 09:00 08/09/17 08:54 (Atropine Inj) 0.5 mg UNSCH PRN IV PUSH 08/05/17 11:00 (Zofran Inj) 4 mg Q4H PRN IV PUSH 08/05/17 11:00 08/05/17 10:03 (Lopressor) 50 mg Q12HR PO 08/05/17 21:00 08/09/17 08:54 (Cardizem) 60 mg Q6H PO 08/05/17 16:00 08/09/17 09:01 (Nitroglycerin 2% Oint) 0.75 inch Q6H PRN TOPICAL 08/05/17 22:45 08/07/17 12:04 Pharmacy Profile Note 0 ml @ 0 mls/hr UNSCH OTHER 08/06/17 14:00 Piperacillin Sod/ Tazobactam Sod 50 ml @ 100 mls/hr Q6H IV 08/06/17 20:00 08/09/17 08:50 Vancomycin HCl 1000 mg/Sodium Chloride 250 ml @ 250 mls/hr Q24H IV 08/07/17 18:00 08/08/17 17:11 Miscellaneous Information SPECIFIC LAB TO BE DRAWN:VANCO TROUGH DATE TO BE .. ONCE ONCE .XX 08/09/17 17:45 08/09/17 17:46 (Eliquis) 2.5 mg BID PO 08/07/17 11:00 08/09/17 08:54 (Tylenol) 650 mg Q6H PRN PO 08/08/17 21:00 ([place] 5-325 Mg) 1 tab Q4H PRN PO 08/08/17 21:00 08/09/17 11:00 (Adelaida Renteria MD R1) Urinary Catheter: No (Adelaida Renteria MD R1) Vascular Central Line Catheter: No (Adelaida Renteria MD R1) A/P Assessment and Plan Patient is a 71-year-old female with a past medical history of CAD s/p CABG, PVD , DM, HTN, COPD brought to the ED via [facility] after she developed symptoms of severe chest pain and shortness of breath. In he ED patient was found to be in A. fib with RVR, elevated troponin of 0.39 with heart rate ranging from 110-- 160s and oxygen saturations in the low 90s. Patient admitted for management of NSTEMI and respiratory distress. Nephrology has been consulted for MARSHALL on CKD, thought to be due to contrast for imaging. Creatinine downtrending since admission on 07/29, and catheterization completed on 08/05. Catheterization reveals three-vessel coronary artery disease, with critical left main disease stented and proximal circumflex artery stented. Discharge Planning Pending clinical improvement. PT recommends PT at rehab. (Adelaida Renteria MD R1) Attending Attestation Patient seen and examined, discussed with Dr Renteria. I agree with assessment and management as documented and discussed with me. Pt reports no new concerns. She is seen after her shower, and is winded a bit getting back into bed. 96-96% on room air at the time of my exam, after ~45 minutes off oxygen supplementation for shower. She denies chest pain. Await auth from insurance for SNF placement. (Dionne Metcalf MD) Problem List: (1) NSTEMI (non-ST elevated myocardial infarction) ICD Codes: I21.4 - Non-ST elevation (NSTEMI) myocardial infarction Status: Acute Plan: Catheterization reveals three-vessel coronary artery disease, with critical left main disease stented and proximal circumflex artery stented. Cardiology recommendation after cath 08/05: continue Brilinta, Aspirin, f/u creat , will wait at least one more day before starting anticoagulation 08/07: Patient reports 2/10 non-reproducible left-sided chest pain not relieved with nitroglycerin. Troponin elevated but downtrending. EKG with ATRIAL FIBRILLATION NONSPECIFIC ST & T-WAVE ABNORMALITY ABNORMAL RHYTHM ECG. Serial troponin and EKG pending. Follow-up. PT assessment recommends patient will need home health with home PT at discharge. 08/08: Patient reports resolution of chest pain. Discharge likely on Thursday. 08/09: Patient denies chest pain. Discharge likely on Thursday. Hospital Course: On admission: * EKG: Atrial fib with RVR * Troponin elevated at 0.39 -> 2.18 --> 1.76 * In the ED started on heparin drip, given Cardizem 10 mg IV1, Lasix 40mg IV x1 , morphine 4mg x1, nitroglycerin x1, solumedrol 125mg IV x1, duoneb x3. * Bipap transitioned to NC in ED * Placed on telemetry Cardiology consulted -cardiac catheterization 08/05. Heparin drip protocol. ASA 325mg po daily. Lipitor 40mg po HS. Cardizem for atrial fibrillation -240 mg daily. Metoprolol 50 mg twice a day. Nitroglycerin ointment every 6 scheduled. (2) Atrial fibrillation with RVR ICD Codes: I48.91 - Unspecified atrial fibrillation Plan: Regular rate and rhythm today. HR <100. Metoprolol 50mg q12hr. Metoprolol 5mg q6hr IV PRN HR >110. Eliquis 2.5mg PO BID. Hospital Course: * On admission patient found to be in A. fib with RVR on EKG. Unclear whether this is new onset although patient stated that she has palpitation "all the time ". Patient not on warfarin or any other rhythm alternating agent. * Patient asymptomatic, with HR ranging 110-160 on admission. * Patient received 1 dose of Cardizem 10 mg IV in ED. * Telemetry. * Will continue to monitor. 07/30: Metoprolol Tartrate 25mg po BID, Metoprolol Tartrate 5mg IV push PRN for HR >110 07/31: HR 130s this AM. Cardizem 15mg IV x 1 then cardizem PO 240mg daily per cardiology 08/03: Increased dose of metoprolol to 40 mg twice a day, as well as diltiazem 360 mg daily. Having increased heart rate with minimal activity. (3) COPD (chronic obstructive pulmonary disease) ICD Codes: J44.9 - Chronic obstructive pulmonary disease, unspecified Status: Chronic Plan: Continues with shortness of breath 08/09. Reports no relief with breathing treatments. Differential includes atelectasis versus COPD exacerbation versus cardiac origin. DuoNeb q6hr PRN Shortness of breath Albuterol 2.5mg q2hr PRN Shortness of breath Incentive spirometry. Hospital Course: s/p treatment for COPD exacerbation. Levaquin 750mg once, 500mg [id number] (due to creatinine clearance less than 30) for 5 days ( 07/30 - 08/04, 2 doses only given q48 for MARSHALL). Prednisone 50mg daily for 5 days (07/30- 08/04). Chest x-ray on admission 07/29: Mild bibasilar infiltrates, interstitial changes. Chest x-ray on 08/02: Mild CHF with mild bilateral effusions, no consolidations. (4) Diabetes ICD Codes: E11.9 - Type 2 diabetes mellitus without complications Plan: Blood glucose range over 24hr: 100-223. Home metformin medication held. Placed on SSI low dose. Hypoglycemia protocol. Monitor AccuChecks. (5) Hypertension ICD Codes: I10 - Essential (primary) hypertension Status: Chronic Plan: Patient with history of hypertension. * Home meds held. * Monitor. (6) Chronic kidney disease (CKD) ICD Codes: N18.9 - Chronic kidney disease, unspecified Plan: Cr 1.74 on 08/09. Will continue to trend and monitor closely. Avoid nephrotoxic agents. Will continue to trend daily. (7) Nutrition, metabolism, and development symptoms ICD Codes: R63.8 - Other symptoms and signs concerning food and fluid intake Plan: Fluids: Tolerating PO. Electrolytes: Monitor and replete as necessary. Nutrition: Heart healthy diet. DVT prophylaxis: SCDs, Eliquis (Adelaida Renteria MD R1) Problem Qualifiers (1) Diabetes: (2) Chronic kidney disease (CKD): Qualified Codes: N18.9 - Chronic kidney disease, unspecified Adelaida Renteria MD R1 Aug 09, 2017 12:47 Dionne Metcalf MD Aug 10, 2017 14:35
--- NOTE | 2017-08-09 14:48 | HHI.NPPN ---
Subjective General Problems: Heart Disease Renal Failure: Chronic, Acute, Stage III History of Present Illness 71-year-old female with past medical history of hypertension, diabetes mellitus, ischemic heart disease, post coronary artery bypass grafting, chronic obstructive pulmonary disease, diabetes mellitus, peripheral vascular disease, and possible chronic kidney disease, who came to the hospital with atrial fibrillation and rapid ventricular rate. I was called to see the patient because of elevated BUN and creatinine. The patient has a creatinine of 1.59 on admission. Additional Remarks Patient Mild lower extremity edema. Review of Systems General Constitutional: Fatigue Respiratory Lungs: SOB Respiratory Remarks Mild Cardiovascular Cardiac: Chest Pain, MARQUEZ Gastrointestinal GI Remarks No abdominal pain Objective Data Data 08/09/17 08/10/17 19:00 07:00 Intake Total 240 ml Balance 240 ml Intake Oral 240 ml # Voids 2 Vital Signs Date Time Temp Pulse Resp B/P (MAP) Pulse Ox O2 Delivery O2 Flow Rate FiO2 08/09/17 12:00 68 08/09/17 12:00 97.5 72 21 118/66 (83) 96 08/09/17 08:00 97.4 65 22 120/63 (82) 98 08/09/17 08:00 Nasal Cannula 2.00 100 08/09/17 07:04 97.8 86 20 116/61 (79) 97 08/09/17 03:48 61 08/09/17 00:08 Nasal Cannula 2.00 08/09/17 00:08 98.0 69 20 117/56 (76) 98 08/08/17 23:41 80 08/08/17 20:34 Nasal Cannula 2.00 08/08/17 20:34 99.3 89 20 123/72 (89) 95 08/08/17 19:55 81 08/08/17 16:00 98.2 80 19 114/78 (90) 08/08/17 16:00 82 -: 08/09/17 0650 08/09/17 0650 Physical Exam General Appearance: No Acute Distress, Comfortable Eyes Eye Exam: Pupils Equal Throat Throat Exam: Oral Mucosa [place] & Moist Neck Neck Exam: Neck Supple Pulmonary Resp Exam: Breath Sounds Equal, No Distress, Diminished Breath Sounds Cardiology CV Exam: Regular, Normal Sinus Rhythm Gastrointestinal/Abdomen GI Exam: Soft, Non-Tender, Bowel Sounds Present Extremeties Extremities Exam: Trace Edema Neurologic Neuro Exam: Alert, Awake, Oriented Psychiatric Psych Exam: Appropriate Responses Assessment/Plan Assessment Summary: MARSHALL/Acute Renal Failure, Hypertension, CKD Stage III Problem List: (1) Chronic kidney disease (CKD) ICD Codes: N18.9 - Chronic kidney disease, unspecified Plan: Patient has stage 3 chronic kidney disease, possibly due to Hypertensive or Diabetic renal disease. Develop MARSHALL, possibly related to contrast. Creatinine slightly increased at 1.85 from 1.63 S/P heart cath 08/05 with stent placement Plan Left lower lobe pneumonia on Zosyn and vancomycin Continue to follow the urine out put and BMP. Creatinine decrease slightly to 1.7, follow the BMP. Dr. Lay to follow (2) Atrial fibrillation with RVR ICD Codes: I48.91 - Unspecified atrial fibrillation Plan: rate controlled on Eliquis (3) Hypertension ICD Codes: I10 - Essential (primary) hypertension Status: Chronic (4) Diabetes ICD Codes: E11.9 - Type 2 diabetes mellitus without complications Plan: Maintain BS 140 to 180 mg/dl (5) COPD (chronic obstructive pulmonary disease) ICD Codes: J44.9 - Chronic obstructive pulmonary disease, unspecified Status: Chronic Plan: Breathing treatments PRN (6) NSTEMI (non-ST elevated myocardial infarction) ICD Codes: I21.4 - Non-ST elevation (NSTEMI) myocardial infarction Status: Acute Plan: S/P stent placement Plan . Problem Qualifiers (1) Chronic kidney disease (CKD): Qualified Codes: N18.9 - Chronic kidney disease, unspecified (2) Diabetes: Dang Conde MD Aug 09, 2017 14:48
[2017-08-09] MEDS ORDERED: PHARMACY ORDERED LAB ONE (17:45)
[2017-08-09] MEDS: VANCOMYCIN 1,000 MG/NS 250 ML IV SCH ×2 (18:32)
[2017-08-09] MEDS: GABAPENTIN 300 MG CAP PO SCH (20:25)
[2017-08-09] MEDS: ATORVASTATIN 40 MG TAB PO SCH (20:25)
[2017-08-09] MEDS ORDERED: LORazepam 1 MG TAB PO PRN (22:45)
[2017-08-10] VITALS (12 sets, daily range): BP systolic 96–130; BP diastolic 58–80; PULSE 60–97; RESP 18–21; TEMP 97.3–99.2; O2SAT 97–98
[2017-08-10] MEDS: PIPERACIL-TAZO 3.375 GM PREMIX 50 ML IV SCH ×2 (01:53→08:36)
[2017-08-10] MEDS: DILTIAZEM HCL 60 MG TAB PO SCH (04:40)
[2017-08-10] MEDS ORDERED: ADVA250A INH (04:58)
[2017-08-10] MEDS: RESP: ALBUTEROL 2.5 MG/IPRATROPIUM 0.5 MG NEB (PRN) NEB (05:02)
[2017-08-10 07:29] LABS: HEMATOCRIT 34.3 % (35.0-46.0); HEMOGLOBIN 11.2 GM/DL (11.6-15.3); MEAN CELL VOLUME 97.6 FL (80.0-100.0); MEAN CORPUSCULAR HGB CONC 32.8 % (32.0-36.0); MEAN PLATELET VOLUME 8.4 FL (7.0-11.0); PLATELET COUNT 200 TH/MM3 (150-450); RED BLOOD COUNT 3.51 MIL/MM3 (4.00-5.30); RED CELL DISTRIBUTION WIDTH 13.6 % (11.6-17.2); WHITE BLOOD COUNT 10.7 TH/MM3 (4.0-11.0)
[2017-08-10 07:48] LABS: BICARBONATE 24.5 MEQ/L (21.0-32.0); CALCIUM 8.5 MG/DL (8.5-10.1); CREATININE 1.65 MG/DL (0.50-1.00)
[2017-08-10] MEDS: INSULIN ASPART SUPPLEMENTAL SCALE SQ SCH ×4 (08:00→21:00)
--- NOTE | 2017-08-10 08:00 | PD.CARD.PN ---
Subjective Subjective Remarks No angina. Noticing ongoing dyspnea Objective Medications Current Medications Medications (Trade) Dose Ordered Sig/Hilda Route Start Time Stop Time Status Last Admin (Narcan Inj) 0.4 mg UNSCH PRN IV PUSH 07/29/17 20:00 (Neyda-Colace) 1 tab BID PO 07/29/17 21:00 08/07/17 19:58 (Milk Of Magnesia Liq) 30 ml Q12H PRN PO 07/29/17 20:00 08/03/17 10:15 (Senokot) 17.2 mg Q12H PRN PO 07/29/17 20:00 (Dulcolax Supp) 10 mg DAILY PRN RECTAL 07/29/17 20:00 (Lactulose Liq) 30 ml DAILY PRN PO 07/29/17 20:00 08/07/17 17:08 (Neurontin) 300 mg HS PO 07/29/17 21:00 08/09/17 20:25 (D50w (Vial) Inj) 50 ml UNSCH PRN IV PUSH 07/29/17 21:00 (Glucagon Inj) 1 mg UNSCH PRN OTHER 07/29/17 21:00 (NovoLOG SUPPLEMENTAL SCALE) 1 ACHS SLIDING SCALE SQ 07/29/17 21:00 08/08/17 21:33 (Morphine Inj) 2 mg Q30M PRN IV PUSH 07/29/17 21:15 07/31/17 05:32 (Nitrostat Sl) 0.4 mg Q5M PRN SL 07/29/17 21:15 07/31/17 18:05 (Duoneb Neb) 1 ampule Q6HR NEB PRN NEB 07/29/17 22:15 08/10/17 05:02 (Lipitor) 40 mg HS PO 07/30/17 21:00 08/09/17 20:25 (Lopressor Inj) 5 mg Q6H PRN IV PUSH 07/30/17 09:00 08/01/17 00:05 (Albuterol Neb) 2.5 mg Q2HR NEB PRN INH 07/30/17 09:30 08/05/17 19:13 (Protonix) 40 mg DAILY PO 07/30/17 18:00 08/09/17 08:54 Miscellaneous Information Patient in critical care unit? Ass... Q361D .XX 07/30/17 21:30 07/30/17 21:30 (Cardizem Cd) 240 mg DAILY PO 08/04/17 09:00 Future Hold 08/04/17 09:15 (NS Flush) 2 ml UNSCH PRN IV FLUSH 08/05/17 11:00 08/06/17 08:13 (NS Flush) 2 ml BID IV FLUSH 08/05/17 21:00 08/09/17 20:24 (Aspirin Chew) 81 mg DAILY PO 08/06/17 09:00 08/09/17 08:54 (Brilinta) 90 mg BID PO 08/06/17 09:00 08/09/17 20:25 (Atropine Inj) 0.5 mg UNSCH PRN IV PUSH 08/05/17 11:00 (Zofran Inj) 4 mg Q4H PRN IV PUSH 08/05/17 11:00 08/05/17 10:03 (Lopressor) 50 mg Q12HR PO 08/05/17 21:00 08/09/17 20:25 (Cardizem) 60 mg Q6H PO 08/05/17 16:00 08/10/17 04:40 (Nitroglycerin 2% Oint) 0.75 inch Q6H PRN TOPICAL 08/05/17 22:45 08/07/17 12:04 Pharmacy Profile Note 0 ml @ 0 mls/hr UNSCH OTHER 08/06/17 14:00 Piperacillin Sod/ Tazobactam Sod 50 ml @ 100 mls/hr Q6H IV 08/06/17 20:00 08/10/17 01:53 Vancomycin HCl 1000 mg/Sodium Chloride 250 ml @ 250 mls/hr Q24H IV 08/07/17 18:00 08/09/17 18:32 (Eliquis) 2.5 mg BID PO 08/07/17 11:00 08/09/17 20:26 (Tylenol) 650 mg Q6H PRN PO 08/08/17 21:00 ([place] 5-325 Mg) 1 tab Q4H PRN PO 08/08/17 21:00 08/09/17 18:33 Miscellaneous Information SPECIFIC LAB TO BE DRAWN:[facility] TROUGH DATE TO BE DREthel.. ONCE ONCE .XX 08/10/17 17:45 08/10/17 17:46 (Ativan) 1 mg Q6H PRN PO 08/09/17 22:45 08/09/17 22:44 Vital Signs / I&O Vital Signs Date Time Temp Pulse Resp B/P (MAP) Pulse Ox O2 Delivery O2 Flow Rate FiO2 08/10/17 04:42 99.2 82 18 111/80 (90) 98 08/10/17 04:42 Nasal Cannula 2.00 08/10/17 03:46 72 08/10/17 00:00 Nasal Cannula 2.00 08/10/17 00:00 98.8 80 21 130/60 (83) 97 08/09/17 23:44 76 08/09/17 21:37 95 21 08/09/17 20:00 97.9 100 19 131/63 (85) 96 08/09/17 20:00 Room Air 08/09/17 19:45 77 08/09/17 16:00 97.4 72 19 121/64 (83) 98 08/09/17 16:00 87 08/09/17 12:00 68 08/09/17 12:00 97.5 72 21 118/66 (83) 96 08/09/17 08:00 97.4 65 22 120/63 (82) 98 08/09/17 08:00 Nasal Cannula 2.00 100 I/O 08/09/17 08/09/17 08/09/17 08/10/17 08/10/17 08/10/17 07:00 15:00 23:00 07:00 15:00 23:00 Intake Total 50 ml 240 ml 850 ml 600 ml Balance 50 ml 240 ml 850 ml 600 ml Intake Oral 240 ml 800 ml 550 ml IV Total 50 ml 50 ml 50 ml # Voids 2 3 4 # Bowel Movements 2 1 Physical Exam Obese, anxious Chest: decreased at bases CV S1S2 irr irr regular rate Tele AF controlled Abd soft Ext no edema. right groin OK Labs show kidneys stable Laboratory Laboratory Tests Test 08/10/17 00:18 08/10/17 06:15 Troponin I 0.16 NG/ML White Blood Count 10.7 TH/MM3 Red Blood Count 3.51 MIL/MM3 Hemoglobin 11.2 GM/DL Hematocrit 34.3 % Mean Corpuscular Volume 97.6 FL Mean Corpuscular Hemoglobin 32.0 PG Mean Corpuscular Hemoglobin Concent 32.8 % Red Cell Distribution Width 13.6 % Platelet Count 200 TH/MM3 Mean Platelet Volume 8.4 FL Blood Urea Nitrogen 17 MG/DL Creatinine 1.65 MG/DL Random Glucose 108 MG/DL Calcium Level 8.5 MG/DL Sodium Level 135 MEQ/L Potassium Level 4.0 MEQ/L Chloride Level 102 MEQ/L Carbon Dioxide Level 24.5 MEQ/L Anion Gap 9 MEQ/L Estimat Glomerular Filtration Rate 30 ML/MIN Assessment and Plan Problem List: (1) Tobacco use disorder ICD Codes: F17.200 - Nicotine dependence, unspecified, uncomplicated (2) NSTEMI (non-ST elevated myocardial infarction) ICD Codes: I21.4 - Non-ST elevation (NSTEMI) myocardial infarction Status: Acute (3) Chronic kidney disease (CKD) ICD Codes: N18.9 - Chronic kidney disease, unspecified Plan: stable since cath (4) Atrial fibrillation with RVR ICD Codes: I48.91 - Unspecified atrial fibrillation Plan: controlled (5) Morbid obesity ICD Codes: E66.01 - Morbid (severe) obesity due to excess calories (6) Stented coronary artery ICD Codes: Z95.5 - Presence of coronary angioplasty implant and graft (7) Debilitated patient ICD Codes: R53.81 - Other malaise (8) Dyspnea ICD Codes: R06.00 - Dyspnea, unspecified Plan: CHF vs COPD vs pneumonia vs Brilinta. Check CXR Assessment and Plan Check CXR PA and lat Problem Qualifiers (1) Chronic kidney disease (CKD): Qualified Codes: N18.9 - Chronic kidney disease, unspecified Marco Vaca MD Aug 10, 2017 08:00
[2017-08-10] MEDS: PANTOPRAZOLE SOD 40 MG DELAYED RELEASE TAB PO SCH (08:36)
[2017-08-10] MEDS: ASPIRIN 81 MG CHEW TAB PO SCH (08:37)
[2017-08-10] MEDS: APIXABAN 2.5 MG TABLET PO SCH ×2 (08:37→20:57)
[2017-08-10] MEDS: DOCUSATE SODIUM 50 MG/SENNA 8.6 MG TAB PO SCH ×2 (08:38→20:56)
[2017-08-10] MEDS: TICAGRELOR 90 MG TAB PO SCH ×2 (08:38→20:57)
[2017-08-10] MEDS: METOPROLOL TARTRATE 50 MG TAB PO SCH ×2 (08:38→20:57)
--- NOTE | 2017-08-10 09:36 | HHI.FPPN ---
Subjective Remarks Patient has been seen and evaluated this morning. She reports shortness of breath overnight. Per patient, cardiology explained that her shortness of breath may likely be due to Brilinta; there is no plan to make medication change. The patient is optimistic about transition to rehab today. She denies shortness of breath this morning, she denies chest pain, nausea, vomiting, diarrhea and constipation. All questions were answered. (Adelaida Renteria MD R1) Objective Vitals Vital Signs Date Time Temp Pulse Resp B/P (MAP) Pulse Ox O2 Delivery O2 Flow Rate FiO2 08/10/17 08:00 97.3 95 18 105/58 (74) 98 08/10/17 04:42 99.2 82 18 111/80 (90) 98 08/10/17 04:42 Nasal Cannula 2.00 08/10/17 03:46 72 08/10/17 00:00 Nasal Cannula 2.00 08/10/17 00:00 98.8 80 21 130/60 (83) 97 08/09/17 23:44 76 08/09/17 21:37 95 21 08/09/17 20:00 97.9 100 19 131/63 (85) 96 08/09/17 20:00 Room Air 08/09/17 19:45 77 08/09/17 16:00 97.4 72 19 121/64 (83) 98 08/09/17 16:00 87 08/09/17 12:00 68 08/09/17 12:00 97.5 72 21 118/66 (83) 96 I/O 08/09/17 08/09/17 08/09/17 08/10/17 08/10/17 08/10/17 07:00 15:00 23:00 07:00 15:00 23:00 Intake Total 50 ml 240 ml 850 ml 600 ml Balance 50 ml 240 ml 850 ml 600 ml Intake Oral 240 ml 800 ml 550 ml IV Total 50 ml 50 ml 50 ml # Voids 2 3 4 # Bowel Movements 2 1 (Adelaida Renteria MD R1) Result Diagram: 08/10/17 0615 08/10/17 0615 Objective Remarks GENERAL: This is a well-nourished, well-developed patient, in no apparent distress. NC in place; patient receiving 2 L oxygen. She is speaking in complete sentences. SKIN: Warm and dry. HEAD: Atraumatic. Normocephalic. EYES: Pupils equal round. Extraocular motions intact. No scleral icterus. No injection or drainage. ENT: Nose without bleeding or drainage. CARDIOVASCULAR: Regular rate and rhythm without murmurs. RESPIRATORY: Clear to auscultation. Mild crackles noted in lower lobes. GASTROINTESTINAL: Obese abdomen, soft, non-tender, nondistended. No hepato- splenomegaly, or palpable masses. No guarding. MUSCULOSKELETAL: Extremities without clubbing or cyanosis. No joint tenderness, effusion, or edema noted. No calf tenderness. NEUROLOGICAL: Awake and alert. Cranial nerves II through XII intact. Motor and sensory grossly within normal limits. Five out of 5 muscle strength in all muscle groups. Normal speech. Medications and IVs Current Medications Medications (Trade) Dose Ordered Sig/Hilda Route Start Time Stop Time Status Last Admin (Narcan Inj) 0.4 mg UNSCH PRN IV PUSH 07/29/17 20:00 (Neyda-Colace) 1 tab BID PO 07/29/17 21:00 08/07/17 19:58 (Milk Of Magnesia Liq) 30 ml Q12H PRN PO 07/29/17 20:00 08/03/17 10:15 (Senokot) 17.2 mg Q12H PRN PO 07/29/17 20:00 (Dulcolax Supp) 10 mg DAILY PRN RECTAL 07/29/17 20:00 (Lactulose Liq) 30 ml DAILY PRN PO 07/29/17 20:00 08/07/17 17:08 (Neurontin) 300 mg HS PO 07/29/17 21:00 08/09/17 20:25 (D50w (Vial) Inj) 50 ml UNSCH PRN IV PUSH 07/29/17 21:00 (Glucagon Inj) 1 mg UNSCH PRN OTHER 07/29/17 21:00 (NovoLOG SUPPLEMENTAL SCALE) 1 ACHS SLIDING SCALE SQ 07/29/17 21:00 08/08/17 21:33 (Morphine Inj) 2 mg Q30M PRN IV PUSH 07/29/17 21:15 07/31/17 05:32 (Nitrostat Sl) 0.4 mg Q5M PRN SL 07/29/17 21:15 07/31/17 18:05 (Duoneb Neb) 1 ampule Q6HR NEB PRN NEB 07/29/17 22:15 08/10/17 05:02 (Lipitor) 40 mg HS PO 07/30/17 21:00 08/09/17 20:25 (Lopressor Inj) 5 mg Q6H PRN IV PUSH 07/30/17 09:00 08/01/17 00:05 (Albuterol Neb) 2.5 mg Q2HR NEB PRN INH 07/30/17 09:30 08/05/17 19:13 (Protonix) 40 mg DAILY PO 07/30/17 18:00 08/10/17 08:36 Miscellaneous Information Patient in critical care unit? Ass... Q361D .XX 07/30/17 21:30 07/30/17 21:30 (Cardizem Cd) 240 mg DAILY PO 08/04/17 09:00 Future Hold 08/04/17 09:15 (NS Flush) 2 ml UNSCH PRN IV FLUSH 08/05/17 11:00 08/06/17 08:13 (NS Flush) 2 ml BID IV FLUSH 08/05/17 21:00 08/09/17 20:24 (Aspirin Chew) 81 mg DAILY PO 08/06/17 09:00 08/10/17 08:37 (Brilinta) 90 mg BID PO 08/06/17 09:00 08/10/17 08:38 (Atropine Inj) 0.5 mg UNSCH PRN IV PUSH 08/05/17 11:00 (Zofran Inj) 4 mg Q4H PRN IV PUSH 08/05/17 11:00 08/05/17 10:03 (Lopressor) 50 mg Q12HR PO 08/05/17 21:00 08/10/17 08:38 Pharmacy Profile Note 0 ml @ 0 mls/hr UNSCH OTHER 08/06/17 14:00 Piperacillin Sod/ Tazobactam Sod 50 ml @ 100 mls/hr Q6H IV 08/06/17 20:00 08/10/17 08:36 Vancomycin HCl 1000 mg/Sodium Chloride 250 ml @ 250 mls/hr Q24H IV 08/07/17 18:00 08/09/17 18:32 (Eliquis) 2.5 mg BID PO 08/07/17 11:00 08/10/17 08:37 (Tylenol) 650 mg Q6H PRN PO 08/08/17 21:00 ([place] 5-325 Mg) 1 tab Q4H PRN PO 08/08/17 21:00 08/09/17 18:33 Miscellaneous Information SPECIFIC LAB TO BE DRAWN:[facility]AN[facility] TROUGH DATE TO BE DR... ONCE ONCE .XX 08/10/17 17:45 08/10/17 17:46 (Ativan) 1 mg Q6H PRN PO 08/09/17 22:45 08/09/17 22:44 (Cardizem Cd) 240 mg DAILY PO 08/10/17 09:00 (Imdur) 30 mg DAILY@07 PO 08/10/17 08:00 (Adelaida Renteria MD R1) Urinary Catheter: No (Adelaida Renteria MD R1) Vascular Central Line Catheter: No (Adelaida Renteria MD R1) A/P Assessment and Plan Patient is a 71-year-old female with a past medical history of CAD s/p CABG, PVD , DM, HTN, COPD brought to the ED via [facility] after she developed symptoms of severe chest pain and shortness of breath. In he ED patient was found to be in A. fib with RVR, elevated troponin of 0.39 with heart rate ranging from 110-- 160s and oxygen saturations in the low 90s. Patient admitted for management of NSTEMI and respiratory distress. Nephrology has been consulted for MARSHALL on CKD, thought to be due to contrast for imaging. Creatinine downtrending since admission on 07/29, and catheterization completed on 08/05. Catheterization reveals three-vessel coronary artery disease, with critical left main disease stented and proximal circumflex artery stented. Discharge Planning Likely today. PT recommends PT at rehab. (Adelaida Renteria MD R1) Attending Attestation Patient seen and examined, discussed with resident team. I agree with assessment and management as documented and discussed with me. Pt reports some anxiety and SOB overnight. She denies any chest pain. She feels ready for discharge to SNF - await auth from insurance, as well as echo report as ordered by cardiology this morning. (Dionne Metcalf MD) Problem List: (1) NSTEMI (non-ST elevated myocardial infarction) ICD Codes: I21.4 - Non-ST elevation (NSTEMI) myocardial infarction Status: Acute Plan: Catheterization reveals three-vessel coronary artery disease, with critical left main disease stented and proximal circumflex artery stented. Cardiology recommendation after cath 08/05: continue Brilinta, Aspirin, f/u creat , will wait at least one more day before starting anticoagulation 08/07: Patient reports 2/10 non-reproducible left-sided chest pain not relieved with nitroglycerin. Troponin elevated but downtrending. EKG with ATRIAL FIBRILLATION NONSPECIFIC ST & T-WAVE ABNORMALITY ABNORMAL RHYTHM ECG. Serial troponin and EKG pending. Follow-up. PT assessment recommends patient will need home health with home PT at discharge. 08/08: Patient reports resolution of chest pain. Discharge likely on Thursday. 08/09: Patient denies chest pain. Discharge likely on Thursday. 08/10: Patient reports shortness of breath overnight but denies any this morning. She denies chest pain. Likely discharge today. Hospital Course: On admission: * EKG: Atrial fib with RVR * Troponin elevated at 0.39 -> 2.18 --> 1.76 * In the ED started on heparin drip, given Cardizem 10 mg IV1, Lasix 40mg IV x1 , morphine 4mg x1, nitroglycerin x1, solumedrol 125mg IV x1, duoneb x3. * Bipap transitioned to NC in ED * Placed on telemetry Cardiology consulted -cardiac catheterization 08/05. Heparin drip protocol. ASA 325mg po daily. Lipitor 40mg po HS. Cardizem for atrial fibrillation -240 mg daily. Metoprolol 50 mg twice a day. Nitroglycerin ointment every 6 scheduled. (2) Atrial fibrillation with RVR ICD Codes: I48.91 - Unspecified atrial fibrillation Plan: Regular rate and rhythm today. HR <100. Metoprolol 50mg q12hr. Metoprolol 5mg q6hr IV PRN HR >110. Eliquis 2.5mg PO BID. Hospital Course: * On admission patient found to be in A. fib with RVR on EKG. Unclear whether this is new onset although patient stated that she has palpitation "all the time ". Patient not on warfarin or any other rhythm alternating agent. * Patient asymptomatic, with HR ranging 110-160 on admission. * Patient received 1 dose of Cardizem 10 mg IV in ED. * Telemetry. * Will continue to monitor. 07/30: Metoprolol Tartrate 25mg po BID, Metoprolol Tartrate 5mg IV push PRN for HR >110 07/31: HR 130s this AM. Cardizem 15mg IV x 1 then cardizem PO 240mg daily per cardiology 08/03: Increased dose of metoprolol to 40 mg twice a day, as well as diltiazem 360 mg daily. Having increased heart rate with minimal activity. (3) COPD (chronic obstructive pulmonary disease) ICD Codes: J44.9 - Chronic obstructive pulmonary disease, unspecified Status: Chronic Plan: Continues with shortness of breath 08/10. Reports no relief with breathing treatments. Differential includes atelectasis versus COPD exacerbation versus cardiac origin. DuoNeb q6hr PRN Shortness of breath Albuterol 2.5mg q2hr PRN Shortness of breath Incentive spirometry. Walking test prior to discharge. Hospital Course: s/p treatment for COPD exacerbation. Levaquin 750mg once, 500mg [id number] (due to creatinine clearance less than 30) for 5 days ( 07/30 - 08/04, 2 doses only given q48 for MARSHALL). Prednisone 50mg daily for 5 days (07/30- 08/04). Chest x-ray on admission 07/29: Mild bibasilar infiltrates, interstitial changes. Chest x-ray on 08/02: Mild CHF with mild bilateral effusions, no consolidations. (4) Diabetes ICD Codes: E11.9 - Type 2 diabetes mellitus without complications Plan: Blood glucose range over 24hr: 100-141. Home metformin medication held. Placed on SSI low dose. Hypoglycemia protocol. Monitor AccuChecks. (5) Hypertension ICD Codes: I10 - Essential (primary) hypertension Status: Chronic Plan: Patient with history of hypertension. * Home meds held. * Monitor. (6) Chronic kidney disease (CKD) ICD Codes: N18.9 - Chronic kidney disease, unspecified Plan: Cr 1.65 on 08/10. Will continue to trend and monitor closely. Avoid nephrotoxic agents. Will continue to trend daily. (7) Nutrition, metabolism, and development symptoms ICD Codes: R63.8 - Other symptoms and signs concerning food and fluid intake Plan: Fluids: Tolerating PO. Electrolytes: Monitor and replete as necessary. Nutrition: Heart healthy diet. DVT prophylaxis: SCDs, Eliquis (Adelaida Renteria MD R1) Problem Qualifiers (1) Diabetes: (2) Chronic kidney disease (CKD): Qualified Codes: N18.9 - Chronic kidney disease, unspecified Adelaida Renteria MD R1 Aug 10, 2017 09:36 Dionne Metcalf MD Aug 10, 2017 19:59
[2017-08-10] MEDS ORDERED: APIX2.5T PO (09:42)
[2017-08-10] MEDS ORDERED: BRIL90TA PO (09:42)
[2017-08-10] MEDS ORDERED: Albuterol-Ipratropium Neb NEB (09:42)
[2017-08-10] MEDS ORDERED: METO-309 PO (09:42)
--- NOTE | 2017-08-10 10:28 | HHI.NPPN ---
Subjective General Problems: Heart Disease Renal Failure: Chronic, Acute, Stage III History of Present Illness 71-year-old female with past medical history of hypertension, diabetes mellitus, ischemic heart disease, post coronary artery bypass grafting, chronic obstructive pulmonary disease, diabetes mellitus, peripheral vascular disease, and possible chronic kidney disease, who came to the hospital with atrial fibrillation and rapid ventricular rate. I was called to see the patient because of elevated BUN and creatinine. The patient has a creatinine of 1.59 on admission. Additional Remarks OOB in Chair. SOB has improved no edema. (Sujatha Barrett) Review of Systems Cardiovascular Cardiac: MARQUEZ Cardiac Remarks Denies CP (Sujatha Barrett) Gastrointestinal GI Remarks No abdominal pain (Sujatha Barrett) Objective Data Data Vital Signs Date Time Temp Pulse Resp B/P (MAP) Pulse Ox O2 Delivery O2 Flow Rate FiO2 08/10/17 08:00 97.3 95 18 105/58 (74) 98 08/10/17 04:42 99.2 82 18 111/80 (90) 98 08/10/17 04:42 Nasal Cannula 2.00 08/10/17 03:46 72 08/10/17 00:00 Nasal Cannula 2.00 08/10/17 00:00 98.8 80 21 130/60 (83) 97 08/09/17 23:44 76 08/09/17 21:37 95 21 08/09/17 20:00 97.9 100 19 131/63 (85) 96 08/09/17 20:00 Room Air 08/09/17 19:45 77 08/09/17 16:00 97.4 72 19 121/64 (83) 98 08/09/17 16:00 87 08/09/17 12:00 68 08/09/17 12:00 97.5 72 21 118/66 (83) 96 (Sujatha Barrett) -: 08/10/17 0615 08/10/17 0615 Imaging Last Impressions Chest X-Ray 08/06/17 0000 Signed Impressions: Service Date/Time: August 12:01 - CONCLUSION: Left lower lobe pneumonia with adjacent small pleural effusion. Jhony Cheung MD Renal Ultrasound 08/01/17 0000 Signed Impressions: Service Date/Time: Tuesday, August 01, 2017 11:15 - CONCLUSION: 1. No hydronephrosis. 2. The kidneys are small and atrophic with increased echogenicity characteristic of medical renal disease. Corwin Shine MD CT Angiography 07/29/17 1700 Signed Impressions: Service Date/Time: Saturday, July 29, 2017 19:11 - CONCLUSION: 1. No pulmonary embolus. 2. Bibasilar areas of consolidation or atelectasis. Jhony Cabrera MD (Gellermann,Sujatha M. CRM ARCHITECT) Physical Exam General Appearance: No Acute Distress, Comfortable (Gellermann,Sujatha M. CRM ARCHITECT) Eyes Eye Exam: Pupils Equal (Gellermann,Sujatha M. CRM ARCHITECT) Throat Throat Exam: Oral Mucosa [place] & Moist (Gellermann,Sujatha M. CRM ARCHITECT) Neck Neck Exam: Neck Supple (Gellermann,Sujatha M. CRM ARCHITECT) Pulmonary Resp Exam: Breath Sounds Equal, No Distress, Diminished Breath Sounds (Gellermann,Sujatha M. CRM ARCHITECT) Cardiology CV Exam: Regular, Normal Sinus Rhythm (Gellermann,Sujatha M. CRM ARCHITECT) Gastrointestinal/Abdomen GI Exam: Soft, Non-Tender, Bowel Sounds Present (Gellermann,Sujatha M. CRM ARCHITECT) Extremeties Extremities Exam: Trace Edema (Gellermann,Sujatha M. CRM ARCHITECT) Neurologic Neuro Exam: Alert, Awake, Oriented (Gellermann,Sujatha M. CRM ARCHITECT) Psychiatric Psych Exam: Appropriate Responses (GellermannSujatha M. CRM ARCHITECT) Assessment/Plan Assessment Summary: MARSHALL/Acute Renal Failure, Hypertension, CKD Stage III Problem List: (1) Chronic kidney disease (CKD) ICD Codes: N18.9 - Chronic kidney disease, unspecified Plan: Patient has stage 3 chronic kidney disease, possibly due to Hypertensive or Diabetic renal disease. Develop MARSHALL, possibly related to contrast. Creatinine stable S/P heart cath 08/05 with stent placement Plan Plans for possible discharge today Creatinine is stable Continue to avoid nephrotoxins (2) Atrial fibrillation with RVR ICD Codes: I48.91 - Unspecified atrial fibrillation Plan: rate controlled on Eliquis (3) Hypertension ICD Codes: I10 - Essential (primary) hypertension Status: Chronic (4) Diabetes ICD Codes: E11.9 - Type 2 diabetes mellitus without complications Plan: Maintain BS 140 to 180 mg/dl (5) COPD (chronic obstructive pulmonary disease) ICD Codes: J44.9 - Chronic obstructive pulmonary disease, unspecified Status: Chronic Plan: Breathing treatments PRN (6) NSTEMI (non-ST elevated myocardial infarction) ICD Codes: I21.4 - Non-ST elevation (NSTEMI) myocardial infarction Status: Acute Plan: S/P stent placement Plan . (Sujatha Barrett) Problem List: (1) Chronic kidney disease (CKD) ICD Codes: N18.9 - Chronic kidney disease, unspecified Plan: Patient has stage 3 chronic kidney disease, possibly due to Hypertensive or Diabetic renal disease. Develop MARSHALL, possibly related to contrast. Creatinine stable S/P heart cath 08/05 with stent placement Plan Plans for possible discharge today Creatinine is stable Continue to avoid nephrotoxins. Patient seen and examine, agree with above. Creatinine is slightly better. (2) Atrial fibrillation with RVR ICD Codes: I48.91 - Unspecified atrial fibrillation Plan: rate controlled on Eliquis (3) Hypertension ICD Codes: I10 - Essential (primary) hypertension Status: Chronic (4) Diabetes ICD Codes: E11.9 - Type 2 diabetes mellitus without complications Plan: Maintain BS 140 to 180 mg/dl (5) COPD (chronic obstructive pulmonary disease) ICD Codes: J44.9 - Chronic obstructive pulmonary disease, unspecified Status: Chronic Plan: Breathing treatments PRN (6) NSTEMI (non-ST elevated myocardial infarction) ICD Codes: I21.4 - Non-ST elevation (NSTEMI) myocardial infarction Status: Acute Plan: S/P stent placement (Jessica Lay MD) Problem Qualifiers (1) Chronic kidney disease (CKD): Qualified Codes: N18.9 - Chronic kidney disease, unspecified (2) Diabetes: Sujatha Barrett Aug 10, 2017 10:27 Jessica Lay MD Aug 10, 2017 19:04
[2017-08-10] MEDS: DILTIAZEM-CD 240 MG CAP ER PO SCH (11:16)
[2017-08-10] MEDS: ISOSORBIDE MONONITRATE 30 MG CR TAB (IMDUR) PO SCH (11:16)
[2017-08-10] MEDS: SODIUM CHLORIDE 0.9% FLUSH 10 ML FLUSH IV FLUSH SCH ×2 (11:16→21:00)
--- NOTE | 2017-08-10 11:18 | RADRPT ---
EXAM DATE/TIME: 08/10/2017 10:06 [facility] COMPARISON: CHEST PA & LAT, August 06, 2017, 12:01. INDICATIONS : Short of breath, chest pain MEDICAL HISTORY : Chronic obstructive pulmonary disease. Congestive heart failure. Diabetes mellitus type II. AAA SURGICAL HISTORY : CABG. Coronary artery stent. Abdominal aortic aneurysm repair. ENCOUNTER: Subsequent ACUITY: 4 - 6 days PAIN SCORE: 5/10 LOCATION: Bilateral chest FINDINGS: The cardiac silhouette is normal in transverse diameter. Median sternotomy wires are present. There i s prominence of the central pulmonary vasculature with indistinct vascular margins compatible with va scular congestion but no evidence of overt failure. No pleural effusions are identified. CONCLUSION: Cardiomegaly and findings of vascular congestion without overt failure. The findings are improved whe n compared with the prior exam. Karel Olson MD on August 10, 2017 at 11:12 Board Certified Radiologist. This report was verified electronically.
--- NOTE | 2017-08-10 15:28 | EKG ---
Date Performed: 08/09/2017 Time Performed: 18:09:02 PTAGE: 71 years EKG: Atrial fibrillation. Poor R wave progression - probable normal variant Inferior/lateral ST- T changes are nonspecific Since the previous tracing, no significant change noted Abnormal ECG PREVIOUS TRACING : 08/07/2017 17.21 DOCTOR: Payal Ramirez Interpretating Date/Time 08/10/2017 15:20:07
[2017-08-10] MEDS: LEVOFLOXACIN 750 MG TAB PO SCH (15:54)
[2017-08-10] MEDS ORDERED: ISOS30TA3 PO (16:44)
[2017-08-10] MEDS ORDERED: DILT240C44 PO (16:44)
[2017-08-10] MEDS ORDERED: ASPI81 PO (16:46)
--- NOTE | 2017-08-10 16:51 | HHI.DS ---
Discharge Summary Admission Date Jul 29, 2017 at 19:44 Discharge Date: Aug 11, 2017 Admitting Diagnosis A. fib RVR, elevated troponin, respiratory distress (1) NSTEMI (non-ST elevated myocardial infarction) Plan: Catheterization reveals three-vessel coronary artery disease, with critical left main disease stented and proximal circumflex artery stented. Cardiology recommendation after cath 08/05: continue Brilinta, Aspirin, f/u creat , will wait at least one more day before starting anticoagulation 08/07: Patient reports 2/10 non-reproducible left-sided chest pain not relieved with nitroglycerin. Troponin elevated but downtrending. EKG with ATRIAL FIBRILLATION NONSPECIFIC ST & T-WAVE ABNORMALITY ABNORMAL RHYTHM ECG. Serial troponin and EKG pending. Follow-up. PT assessment recommends patient will need home health with home PT at discharge. 08/08: Patient reports resolution of chest pain. Discharge likely on Thursday. 08/09: Patient denies chest pain. Discharge likely on Thursday. 08/10: Patient reports shortness of breath overnight but denies any this morning. She denies chest pain. Likely discharge today. Hospital Course: On admission: * EKG: Atrial fib with RVR * Troponin elevated at 0.39 -> 2.18 --> 1.76 * In the ED started on heparin drip, given Cardizem 10 mg IV1, Lasix 40mg IV x1 , morphine 4mg x1, nitroglycerin x1, solumedrol 125mg IV x1, duoneb x3. * Bipap transitioned to NC in ED * Placed on telemetry Cardiology consulted -cardiac catheterization 08/05. Heparin drip protocol. ASA 325mg po daily. Lipitor 40mg po HS. Cardizem for atrial fibrillation -240 mg daily. Metoprolol 50 mg twice a day. Nitroglycerin ointment every 6 scheduled. ICD Codes: I21.4 - Non-ST elevation (NSTEMI) myocardial infarction Status: Acute (2) Atrial fibrillation with RVR Plan: Regular rate and rhythm today. HR <100. Metoprolol 50mg q12hr. Metoprolol 5mg q6hr IV PRN HR >110. Eliquis 2.5mg PO BID. Hospital Course: * On admission patient found to be in A. fib with RVR on EKG. Unclear whether this is new onset although patient stated that she has palpitation "all the time ". Patient not on warfarin or any other rhythm alternating agent. * Patient asymptomatic, with HR ranging 110-160 on admission. * Patient received 1 dose of Cardizem 10 mg IV in ED. * Telemetry. * Will continue to monitor. 07/30: Metoprolol Tartrate 25mg po BID, Metoprolol Tartrate 5mg IV push PRN for HR >110 07/31: HR 130s this AM. Cardizem 15mg IV x 1 then cardizem PO 240mg daily per cardiology 08/03: Increased dose of metoprolol to 40 mg twice a day, as well as diltiazem 360 mg daily. Having increased heart rate with minimal activity. ICD Codes: I48.91 - Unspecified atrial fibrillation (3) COPD (chronic obstructive pulmonary disease) Plan: Continues with shortness of breath 08/10. Reports no relief with breathing treatments. Differential includes atelectasis versus COPD exacerbation versus cardiac origin. DuoNeb q6hr PRN Shortness of breath Albuterol 2.5mg q2hr PRN Shortness of breath Incentive spirometry. Walking test prior to discharge. Hospital Course: s/p treatment for COPD exacerbation. Levaquin 750mg once, 500mg [id number] (due to creatinine clearance less than 30) for 5 days ( 07/30 - 08/04, 2 doses only given q48 for MARSHALL). Prednisone 50mg daily for 5 days (07/30- 08/04). Chest x-ray on admission 07/29: Mild bibasilar infiltrates, interstitial changes. Chest x-ray on 08/02: Mild CHF with mild bilateral effusions, no consolidations. ICD Codes: J44.9 - Chronic obstructive pulmonary disease, unspecified Status: Chronic (4) Diabetes Plan: Blood glucose range over 24hr: 100-141. Home metformin medication held. Placed on SSI low dose. Hypoglycemia protocol. Monitor AccuChecks. ICD Codes: E11.9 - Type 2 diabetes mellitus without complications (5) Hypertension Plan: Patient with history of hypertension. * Home meds held. * Monitor. ICD Codes: I10 - Essential (primary) hypertension Status: Chronic (6) Chronic kidney disease (CKD) Plan: Cr 1.65 on 08/10. Will continue to trend and monitor closely. Avoid nephrotoxic agents. Will continue to trend daily. ICD Codes: N18.9 - Chronic kidney disease, unspecified (7) Nutrition, metabolism, and development symptoms Plan: Fluids: Tolerating PO. Electrolytes: Monitor and replete as necessary. Nutrition: Heart healthy diet. DVT prophylaxis: SCDs, Eliquis ICD Codes: R63.8 - Other symptoms and signs concerning food and fluid intake Brief History Patient is a 71-year-old female with past medical history of CAD s/p CABG, PVD, DM, HTN, COPD brought to the ED via [facility] after she developed sxs of severe chest pain and shortness of breath. Patient states that she has chronic history of constant CP and SOB but today it was the worst it has been and she decided to call 911. CP is worst with exertion. Endorses palpitations, LE swelling, weight gain, and orthopnea. Denies N/V, abdominal pain, blurry vision. Patient also has history of Left arm pain and states she currently has Left arm pain worst from wrist to hand, she attributes this pain to arthritis but has not be officially diagnosed. Patient's jewel sawyer is Dr. Quinteros. Patient reports she had an echo done last wk. She is not on home oxygen and ambulates with a walker at baseline. In the ED patient was found to be in A. fib with RVR, elevated troponin of 0.39 and with heart rate ranging from 110--160s. She was started on heparin drip, given Cardizem 10 mg IV1, lasix 40mg IV x1, morphine 4mg x1, nitroglycerin x1, solumedrol 125mg IV x1, duoneb x3. Patient took home medications aspirin 325mg and atorvastatin this a.m. Patient was also placed on BiPAP due to low oxygen saturation of 92. CBC/BMP: 08/10/17 0615 08/10/17 0615 Significant Findings Laboratory Tests Test 08/07/17 20:09 08/08/17 07:11 08/08/17 07:50 08/08/17 17:28 Troponin I 0.45 NG/ML (0.02-0.05) Blood Urea Nitrogen 24 MG/DL (7-18) Creatinine 1.83 MG/DL (0.50-1.00) Estimat Glomerular Filtration Rate 27 ML/MIN (>89) White Blood Count 11.6 TH/MM3 (4.0-11.0) Red Blood Count 3.58 MIL/MM3 (4.00-5.30) Hemoglobin 11.3 GM/DL (11.6-15.3) Hematocrit 34.6 % (35.0-46.0) Neutrophils (%) (Auto) 72.7 % (16.0-70.0) Monocytes (%) (Auto) 11.5 % (0.0-8.0) Neutrophils # (Auto) 8.4 TH/MM3 (1.8-7.7) Monocytes # (Auto) 1.3 TH/MM3 (0-0.9) Test 08/09/17 06:50 08/10/17 00:18 08/10/17 06:15 White Blood Count 11.6 TH/MM3 (4.0-11.0) Red Blood Count 3.54 MIL/MM3 (4.00-5.30) 3.51 MIL/MM3 (4.00-5.30) Hemoglobin 11.2 GM/DL (11.6-15.3) 11.2 GM/DL (11.6-15.3) Hematocrit 34.7 % (35.0-46.0) 34.3 % (35.0-46.0) Neutrophils (%) (Auto) 70.9 % (16.0-70.0) Monocytes (%) (Auto) 11.4 % (0.0-8.0) Neutrophils # (Auto) 8.2 TH/MM3 (1.8-7.7) Monocytes # (Auto) 1.3 TH/MM3 (0-0.9) Blood Urea Nitrogen 22 MG/DL (7-18) Creatinine 1.74 MG/DL (0.50-1.00) 1.65 MG/DL (0.50-1.00) Albumin 2.9 GM/DL (3.4-5.0) Aspartate Amino Transf (AST/SGOT) 9 U/L (15-37) Estimat Glomerular Filtration Rate 29 ML/MIN (>89) 30 ML/MIN (>89) Troponin I 0.16 NG/ML (0.02-0.05) Random Glucose 108 MG/DL (74-106) Sodium Level 135 MEQ/L (136-145) PE at Discharge GENERAL: This is a well-nourished, well-developed patient, in no apparent distress. NC in place; patient receiving 2 L oxygen. She is speaking in complete sentences. SKIN: Warm and dry. HEAD: Atraumatic. Normocephalic. EYES: Pupils equal round. Extraocular motions intact. No scleral icterus. No injection or drainage. ENT: Nose without bleeding or drainage. CARDIOVASCULAR: Regular rate and rhythm without murmurs. RESPIRATORY: Clear to auscultation. Mild crackles noted in lower lobes. GASTROINTESTINAL: Obese abdomen, soft, non-tender, nondistended. No hepato- splenomegaly, or palpable masses. No guarding. MUSCULOSKELETAL: Extremities without clubbing or cyanosis. No joint tenderness, effusion, or edema noted. No calf tenderness. NEUROLOGICAL: Awake and alert. Cranial nerves II through XII intact. Motor and sensory grossly within normal limits. Five out of 5 muscle strength in all muscle groups. Normal speech. Hospital Course Patient is a 71-year-old female with past medical history of CAD s/p CABG, PVD, DM, HTN, COPD brought to the ED via [facility] after she developed sxs of severe chest pain and shortness of breath. In the ED she was found be in A. fib with RVR with an elevated troponin and admitted for an STEMI in respiratory distress. Cardiology and nephrology was following and delaying the catheterization until AKA I was stabilized. Creatinine finally down trended and catheterization was completed on 08/05. Three-vessel disease was noted and 2 stents were placed. On day of discharge patient does not have any chest pain or shortness of breath and is ready to go to a SNF. Pt Condition on Discharge: Stable Discharge Disposition: Discharge to SNF Discharge Instructions DIET: Follow Instructions for: Heart Healthy Diet Activities you can perform: Regular-No Restrictions New Medications: Levofloxacin (Levofloxacin) 750 Mg Tablet 750 MG PO DAILY for Infection for 4 Days, #4 TAB 0 Refills Oxygen tank (Oxygen tank) 1 Ea Tank LITER PA.CANULA CONTINUOUS for HYPOXEMIA PREVENTION, #1 Oxygen Concentrator Portable Gaseous 2 L/min via Nasal Cannula Continuous For 99 months Apixaban (Eliquis) 2.5 Mg Tab 2.5 MG PO BID, #60 TAB Aspirin (Tgt Aspirin) 81 Mg Chw 81 MG PO DAILY for 30 Days, #30 EA Diltiazem CD 24 HR (Diltiazem CD 24 HR) 240 Mg Caper 240 MG PO DAILY for 30 Days, #30 CAP Isosorbide Mononitrate ER (Isosorbide Mononitrate ER) 30 Mg Sagar 30 MG PO DAILY@07 for 30 Days, #30 TAB Metoprolol Tartrate (Lopressor) 50 Mg Tab 50 MG PO Q12HR, #60 TAB Ticagrelor (Brilinta) 90 Mg Tab 90 MG PO BID, #60 TAB [Albuterol-Ipratropium Neb] () 1 AMPULE NEBU 1 AMPULE NEB Q6HR NEB PRN for SHORTNESS OF BREATH for 14 Days, #56 AMPULE Continued Medications: Albuterol 18 GM Inh (Ventolin Hfa 18 GM Inh) 90 Mcg/Act Aer 2 PUFF INH Q4H PRN for SHORTNESS OF BREATH, #1 INHALER 0 Refills Atorvastatin (Atorvastatin) 40 Mg Tab 40 MG PO HS for Cholesterol Management, #90 TAB 3 Refills Fluticasone-Salmeterol Inh (Advair Diskus Inh) 250-50 Mcg/Blist Aer 1 PUFF INH BID, #1 INHALER 0 Refills Rinse mouth after use. Gabapentin (Gabapentin) 300 Mg Cap 300 MG PO HS, #30 CAP 0 Refills Metformin (Metformin) 500 Mg Tab 500 MG PO DAILY for Blood Sugar Management, #90 TAB 3 Refills With a meal Discontinued Medications: Amlodipine (Amlodipine) 10 Mg Tab 10 MG PO DAILY for Blood Pressure Management, #90 TAB [address] (Aspirin 81) 81 Mg Tabdr 325 MG PO DAILY for 30 Days, #120 TAB 0 Refills Lisinopril (Lisinopril) 10 Mg Tab 10 MG PO DAILY, #90 TAB 3 Refills Freya Rush MD R2 Aug 10, 2017 16:51
--- NOTE | 2017-08-10 16:51 | HHI.DCPOC ---
Discharge Care Plan Diagnosis: (1) CHF (congestive heart failure) (2) New onset a-fib (3) COPD (chronic obstructive pulmonary disease) Goals to Promote Your Health * To prevent worsening of your condition and complications * To maintain your health at the optimal level Directions to Meet Your Goals Take your medications as prescribed Follow your dietary instruction Follow activity as directed Keep your appointments as scheduled Take your immunizations and boosters as scheduled If your symptoms worsen call your PCP, if no PCP go to Urgent Care Center or Emergency Room Smoking is Dangerous to Your Health. Avoid second hand smoke Call the 24-hour hour crisis hotline for domestic abuse at Freya Rush MD R2 Aug 10, 2017 16:51
[2017-08-10] MEDS ORDERED: LEVO750T3 PO (16:54)
[2017-08-10] MEDS ORDERED: PHARMACY ORDERED LAB ONE (17:45)
[2017-08-10] MEDS: ATORVASTATIN 40 MG TAB PO SCH (20:57)
[2017-08-10] MEDS: GABAPENTIN 300 MG CAP PO SCH (20:57)
[2017-08-11 00:48] VITALS: BP 112/63; PULSE 84; RESP 16; O2SAT 98
[2017-08-11 03:48] VITALS: PULSE 75
[2017-08-11 04:52] VITALS: BP 128/57; PULSE 86; RESP 16; TEMP 98.1; O2SAT 97
[2017-08-11] MEDS: ISOSORBIDE MONONITRATE 30 MG CR TAB (IMDUR) PO SCH (06:07)
[2017-08-11 07:14] LABS: HEMATOCRIT 31.9 % (35.0-46.0); HEMOGLOBIN 10.7 GM/DL (11.6-15.3); MEAN CELL VOLUME 96.8 FL (80.0-100.0); MEAN CORPUSCULAR HEMOGLOBIN 32.4 PG (27.0-34.0); MEAN CORPUSCULAR HGB CONC 33.4 % (32.0-36.0); MEAN PLATELET VOLUME 8.5 FL (7.0-11.0); PLATELET COUNT 202 TH/MM3 (150-450); RED CELL DISTRIBUTION WIDTH 13.5 % (11.6-17.2)
[2017-08-11] MEDS ORDERED: OXYGENTANK NAS.CANULA (07:27)
[2017-08-11 07:41] LABS: ALBUMIN 2.9 GM/DL (3.4-5.0); BICARBONATE 26.3 MEQ/L (21.0-32.0); BLOOD UREA NITROGEN 16 MG/DL (7-18); CALCIUM 8.9 MG/DL (8.5-10.1); CHLORIDE 107 MEQ/L (98-107); CREATININE 1.61 MG/DL (0.50-1.00); GLOMERULAR FILTRATION RATE 31 ML/MIN (>89); GLUCOSE,RANDOM 90 MG/DL (74-106); SODIUM (NA) 139 MEQ/L (136-145)
[2017-08-11 07:42] LABS: ALT (GPT) 18 U/L (10-53); AST (GOT) 12 U/L (15-37)
[2017-08-11 07:44] LABS: ALKALINE PHOSPHATASE 63 U/L (45-117); TOTAL BILIRUBIN ADULT 0.6 MG/DL (0.2-1.0); TOTAL PROTEIN 6.8 GM/DL (6.4-8.2)
[2017-08-11 08:00] VITALS: BP 97/61; PULSE 73; PULSE 85; RESP 20; TEMP 97.2; O2SAT 95
[2017-08-11] MEDS: INSULIN ASPART SUPPLEMENTAL SCALE SQ SCH ×2 (08:00→12:00)
[2017-08-11] MEDS: METOPROLOL TARTRATE 50 MG TAB PO SCH (08:15)
[2017-08-11] MEDS: TICAGRELOR 90 MG TAB PO SCH (08:15)
[2017-08-11] MEDS: SODIUM CHLORIDE 0.9% FLUSH 10 ML FLUSH IV FLUSH SCH (08:15)
[2017-08-11] MEDS: APIXABAN 2.5 MG TABLET PO SCH (08:15)
[2017-08-11] MEDS: PANTOPRAZOLE SOD 40 MG DELAYED RELEASE TAB PO SCH (08:15)
[2017-08-11] MEDS: ASPIRIN 81 MG CHEW TAB PO SCH (08:15)
[2017-08-11] MEDS: DILTIAZEM-CD 240 MG CAP ER PO SCH (08:15)
[2017-08-11] MEDS: LEVOFLOXACIN 750 MG TAB PO SCH (08:15)
[2017-08-11] MEDS: DOCUSATE SODIUM 50 MG/SENNA 8.6 MG TAB PO SCH (08:35)
[2017-08-11 12:00] VITALS: BP 109/66; PULSE 78; RESP 20; TEMP 97.8; O2SAT 99
--- NOTE | 2017-08-11 12:00 | HHI.FPPN ---
Subjective Remarks Patient was seen and evaluated this morning. She is doing well. She states that neither the ECHO nor the walk test were completed yesterday. She denies chest pain, shortness of breath, nausea, vomiting, diarrhea and constipation. She is eager to be discharged to SNF. At this time, discharge is held up by a delayed response from patient's insurance company to the authorization request. All questions were answered. (Adelaida Renteria MD R1) Objective Vitals Vital Signs Date Time Temp Pulse Resp B/P (MAP) Pulse Ox O2 Delivery O2 Flow Rate FiO2 08/11/17 08:00 85 08/11/17 08:00 97.2 73 20 97/61 (73) 95 08/11/17 08:00 Nasal Cannula 3.00 08/11/17 04:52 98.1 86 16 128/57 (80) 97 08/11/17 04:00 Nasal Cannula 3.00 08/11/17 03:48 75 08/11/17 00:48 84 16 112/63 (79) 98 08/11/17 00:00 Nasal Cannula 2.00 08/10/17 23:44 95 08/10/17 21:46 21 08/10/17 21:00 Nasal Cannula 2.00 08/10/17 20:07 97 08/10/17 20:00 97.8 94 18 100/68 (79) 98 08/10/17 16:57 98 2.00 08/10/17 16:41 70 08/10/17 16:00 97.5 74 20 108/77 (87) 98 08/10/17 13:20 60 08/10/17 13:20 98 Nasal Cannula 2.00 08/10/17 12:00 97.3 80 18 96/64 (75) 98 I/O 08/10/17 08/10/17 08/10/17 08/11/17 08/11/17 08/11/17 07:00 15:00 23:00 07:00 15:00 23:00 Intake Total 600 ml 640 ml Balance 600 ml 640 ml Intake Oral 550 ml 640 ml IV Total 50 ml # Voids 4 3 2 # Bowel Movements 1 2 (Adelaida Renteria MD R1) Result Diagram: 08/11/17 0545 08/11/17 0545 Imaging Last 72 hours Impressions Chest X-Ray 08/10/17 0000 Signed Impressions: Service Date/Time: Thursday, August 10, 2017 10:06 - CONCLUSION: Cardiomegaly and findings of vascular congestion without overt failure. The findings are improved when compared with the prior exam. Karel Olson MD Objective Remarks GENERAL: This is a well-nourished, well-developed patient, in no apparent distress. NC in place; patient receiving 2 L oxygen. She is speaking in complete sentences. SKIN: Warm and dry. HEAD: Atraumatic. Normocephalic. EYES: Pupils equal round. Extraocular motions intact. No scleral icterus. No injection or drainage. ENT: Nose without bleeding or drainage. CARDIOVASCULAR: Regular rate and rhythm without murmurs. RESPIRATORY: Clear to auscultation. Mild crackles noted in lower lobes. GASTROINTESTINAL: Obese abdomen, soft, non-tender, nondistended. No hepato- splenomegaly, or palpable masses. No guarding. MUSCULOSKELETAL: Extremities without clubbing or cyanosis. No joint tenderness, effusion, or edema noted. No calf tenderness. NEUROLOGICAL: Awake and alert. Cranial nerves II through XII intact. Motor and sensory grossly within normal limits. Five out of 5 muscle strength in all muscle groups. Normal speech. Medications and IVs Current Medications Medications (Trade) Dose Ordered Sig/Hilda Route Start Time Stop Time Status Last Admin (Narcan Inj) 0.4 mg UNSCH PRN IV PUSH 07/29/17 20:00 (Neyda-Colace) 1 tab BID PO 07/29/17 21:00 08/07/17 19:58 (Milk Of Magnesia Liq) 30 ml Q12H PRN PO 07/29/17 20:00 08/03/17 10:15 (Senokot) 17.2 mg Q12H PRN PO 07/29/17 20:00 (Dulcolax Supp) 10 mg DAILY PRN RECTAL 07/29/17 20:00 (Lactulose Liq) 30 ml DAILY PRN PO 07/29/17 20:00 08/07/17 17:08 (Neurontin) 300 mg HS PO 07/29/17 21:00 08/10/17 20:57 (D50w (Vial) Inj) 50 ml UNSCH PRN IV PUSH 07/29/17 21:00 (Glucagon Inj) 1 mg UNSCH PRN OTHER 07/29/17 21:00 (NovoLOG SUPPLEMENTAL SCALE) 1 ACHS SLIDING SCALE SQ 07/29/17 21:00 08/08/17 21:33 (Morphine Inj) 2 mg Q30M PRN IV PUSH 07/29/17 21:15 07/31/17 05:32 (Nitrostat Sl) 0.4 mg Q5M PRN SL 07/29/17 21:15 07/31/17 18:05 (Duoneb Neb) 1 ampule Q6HR NEB PRN NEB 07/29/17 22:15 08/10/17 05:02 (Lipitor) 40 mg HS PO 07/30/17 21:00 08/10/17 20:57 (Lopressor Inj) 5 mg Q6H PRN IV PUSH 07/30/17 09:00 08/01/17 00:05 (Albuterol Neb) 2.5 mg Q2HR NEB PRN INH 07/30/17 09:30 08/05/17 19:13 (Protonix) 40 mg DAILY PO 07/30/17 18:00 08/11/17 08:15 Miscellaneous Information Patient in critical care unit? Ass... [id number] .XX 07/30/17 21:30 07/30/17 21:30 (Cardizem Cd) 240 mg DAILY PO 08/04/17 09:00 Future Hold 08/04/17 09:15 (NS Flush) 2 ml UNSCH PRN IV FLUSH 08/05/17 11:00 08/06/17 08:13 (NS Flush) 2 ml BID IV FLUSH 08/05/17 21:00 08/11/17 08:15 (Aspirin Chew) 81 mg DAILY PO 08/06/17 09:00 08/11/17 08:15 (Brilinta) 90 mg BID PO 08/06/17 09:00 08/11/17 08:15 (Atropine Inj) 0.5 mg UNSCH PRN IV PUSH 08/05/17 11:00 (Zofran Inj) 4 mg Q4H PRN IV PUSH 08/05/17 11:00 08/05/17 10:03 (Lopressor) 50 mg Q12HR PO 08/05/17 21:00 08/11/17 08:15 (Eliquis) 2.5 mg BID PO 08/07/17 11:00 08/11/17 08:15 (Tylenol) 650 mg Q6H PRN PO 08/08/17 21:00 (Ativan) 1 mg Q6H PRN PO 08/09/17 22:45 08/09/17 22:44 (Cardizem Cd) 240 mg DAILY PO 08/10/17 09:00 08/11/17 08:15 (Imdur) 30 mg DAILY@07 PO 08/10/17 08:00 08/11/17 06:07 (Levaquin) 750 mg DAILY PO 08/10/17 15:00 08/11/17 08:15 (Adelaida Renteria MD R1) Urinary Catheter: No (Adelaida Renteria MD R1) Vascular Central Line Catheter: No (Adelaida Renteria MD R1) A/P Assessment and Plan Patient is a 71-year-old female with a past medical history of CAD s/p CABG, PVD , DM, HTN, COPD brought to the ED via [facility] after she developed symptoms of severe chest pain and shortness of breath. In he ED patient was found to be in A. fib with RVR, elevated troponin of 0.39 with heart rate ranging from 110-- 160s and oxygen saturations in the low 90s. Patient admitted for management of NSTEMI and respiratory distress. Nephrology has been consulted for MARSHALL on CKD, thought to be due to contrast for imaging. Creatinine downtrending since admission on 07/29, and catheterization completed on 08/05. Catheterization reveals three-vessel coronary artery disease, with critical left main disease stented and proximal circumflex artery stented. Discharge Planning Discharge to SNF likely today, awaiting authorization. (Adelaida Renteria MD R1) Attending Attestation Patient seen and examined, discussed with resident team. I agree with assessment and management as documented and discussed with me. Pt without complaints. She denies CP, SOB. She feels ready to be discharged to SNF, once authorization is received from insurance. (Dionne Metcalf MD) Problem List: (1) NSTEMI (non-ST elevated myocardial infarction) ICD Codes: I21.4 - Non-ST elevation (NSTEMI) myocardial infarction Status: Acute Plan: Cardiology consulted - cardiac catheterization 08/05. Catheterization reveals three-vessel coronary artery disease, with critical left main disease stented and proximal circumflex artery stented. Cardiology recommendation after cath 08/05: continue Brilinta, Aspirin 08/11: Patient denies chest pain and shortness of breath. She feels well and is eager to be transitioned to SNF. Hospital Course: On admission: * EKG: Atrial fib with RVR. * Troponin elevated at 0.39 -> 2.18 --> 1.76. * Placed on telemetry. 08/07: Patient reports 2/10 non-reproducible left-sided chest pain not relieved with nitroglycerin. Troponin elevated but downtrending. EKG with ATRIAL FIBRILLATION NONSPECIFIC ST & T-WAVE ABNORMALITY ABNORMAL RHYTHM ECG. Serial troponin and EKG pending. Follow-up. PT assessment recommends patient will need home health with home PT at discharge. 08/08: Patient reports resolution of chest pain. Discharge likely on Thursday. 08/09: Patient denies chest pain. Discharge likely on Thursday. 08/10: Patient reports shortness of breath overnight but denies any this morning. She denies chest pain. Likely discharge today. (2) Atrial fibrillation with RVR ICD Codes: I48.91 - Unspecified atrial fibrillation Plan: Regular rate and rhythm today. HR <100. Metoprolol 50mg q12hr. Metoprolol 5mg q6hr IV PRN HR >110. Eliquis 2.5mg PO BID. Hospital Course: * On admission patient found to be in A. fib with RVR on EKG. Unclear whether this is new onset although patient stated that she has palpitation "all the time ". Patient not on warfarin or any other rhythm alternating agent. * Patient asymptomatic, with HR ranging 110-160 on admission. * Patient received 1 dose of Cardizem 10 mg IV in ED. * Telemetry. * Will continue to monitor. 07/30: Metoprolol Tartrate 25mg po BID, Metoprolol Tartrate 5mg IV push PRN for HR >110 07/31: HR 130s this AM. Cardizem 15mg IV x 1 then cardizem PO 240mg daily per cardiology 08/03: Increased dose of metoprolol to 40 mg twice a day, as well as diltiazem 360 mg daily. Having increased heart rate with minimal activity. (3) COPD (chronic obstructive pulmonary disease) ICD Codes: J44.9 - Chronic obstructive pulmonary disease, unspecified Status: Chronic Plan: Improved shortness of breath 08/11. DuoNeb q6hr PRN Shortness of breath Albuterol 2.5mg q2hr PRN Shortness of breath Incentive spirometry. Walk test prior to discharge. Hospital Course: * s/p treatment for COPD exacerbation. * Levaquin 750mg once, 500mg [id number] (due to creatinine clearance less than 30 ) for 5 days ( 07/30 - 08/04, 2 doses only given q48 for MARSHALL). * Prednisone 50mg daily for 5 days (07/30- 08/04). * Chest x-ray on admission 07/29: Mild bibasilar infiltrates, interstitial changes. * Chest x-ray on 08/02: Mild CHF with mild bilateral effusions, no consolidations. * Chest x-ray on 08/10: Cardiomegaly and findings of vascular congestion without overt failure. The findings are improved when compared with prior exam. (4) Diabetes ICD Codes: E11.9 - Type 2 diabetes mellitus without complications Plan: Blood glucose range over 24hr: 89 - 122. Home metformin medication held. Placed on SSI low dose. Hypoglycemia protocol. Monitor AccuChecks. (5) Hypertension ICD Codes: I10 - Essential (primary) hypertension Status: Chronic Plan: Patient with history of hypertension. * Home meds held. * Monitor. (6) Chronic kidney disease (CKD) ICD Codes: N18.9 - Chronic kidney disease, unspecified Plan: Cr 1.61 on 08/11. Will continue to trend and monitor closely. Avoid nephrotoxic agents. Will continue to trend daily. (7) Nutrition, metabolism, and development symptoms ICD Codes: R63.8 - Other symptoms and signs concerning food and fluid intake Plan: Fluids: Tolerating PO. Electrolytes: Monitor and replete as necessary. Nutrition: Heart healthy diet. DVT prophylaxis: SCDs, Eliquis (Adelaida Renteria MD R1) Problem Qualifiers (1) Diabetes: (2) Chronic kidney disease (CKD): Qualified Codes: N18.9 - Chronic kidney disease, unspecified Adelaida Renteria MD R1 Aug 11, 2017 12:00 Dionne Metcalf MD Aug 12, 2017 12:30
--- NOTE | 2017-08-11 16:38 | ECHRPT ---
Indication: Atherosclerotic heart disease of council coronary artery with unstable angina pectoris CONCLUSIONS Technically very difficult study. The left ventricular systolic function is low normal to mildly re duced with an estimated ejection fraction of 45-50%. Regional wall motion abnormalities cannot be excluded. Wall thickness is measured at the upper limits of normal. Left ventricular size is upper normal. Mild mitral valve regurgitation. Trace aortic valve regurgitation. Moderate leaflet sclerosis without evidence for aortic stenosis. There is mild tricuspid regurgitation. The estimated pulmonary arterial pressure is 37 mmHg. BP: 97 / 61 HR: 85 Rhythm: MEASUREMENTS (Male / Female) Normal Values Technical Quality: 2D ECHO LV Diastolic Diameter PLAX 5.4 cm 4.2 - 5.9 / 3.9 - 5.3 cm LV Systolic Diameter PLAX 4.2 cm IVS Diastolic Thickness 1.1 cm 0.6 - 1.0 / 0.6 - 0.9 cm LVPW Diastolic Thickness 1.0 cm 0.6 - 1.0 / 0.6 - 0.9 cm LV Relative Wall Thickness 0.4 LVOT Diameter 2.2 cm M-MODE Aortic Root Diameter MM 3.2 cm LA Systolic Diameter MM 4.3 cm LA Ao Ratio MM 1.3 AV Cusp Separation MM 1.7 cm DOPPLER AV Peak Velocity 207.0 cm/s AV Peak Gradient 17.1 mmHg AI Peak Velocity 403.5 cm/s AI Peak Gradient 65.1 mmHg AI Pressure Half Time 508.0 ms LVOT Peak Velocity 79.0 cm/s LVOT Peak Gradient 2.5 mmHg AV Area Cont Eq pk 1.5 cm MR Peak Velocity 481.0 cm/s MR Peak Gradient 92.5 mmHg TR Peak Velocity 261.0 cm/s TR Peak Gradient 27.2 mmHg Right Atrial Pressure 10.0 mmHg Pulmonary Artery Systolic Pressu 37.2 mmHg Right Ventricular Systolic Press 37.2 mmHg PV Peak Velocity 78.7 cm/s PV Peak Gradient 2.5 mmHg FINDINGS LEFT VENTRICLE Technically very difficult study. The left ventricular systolic function is low normal to mildly re duced with an estimated ejection fraction of 45-50%. Regional wall motion abnormalities cannot be excluded. Wall thickness is measured at the upper limits of normal. Left ventricular size is upper normal. RIGHT VENTRICLE Normal right ventricular size and systolic function. LEFT ATRIUM The left atrial size is normal. RIGHT ATRIUM The right atrial size is normal. ATRIAL SEPTUM Normal atrial septal thickness without atrial level shunting by limited color doppler interrogation. AORTA The aortic root and proximal ascending aorta are normal in size on limited imaging. MITRAL VALVE Mild mitral valve regurgitation. AORTIC VALVE Trace aortic valve regurgitation. Moderate leaflet sclerosis without evidence for aortic stenosis. TRICUSPID VALVE There is mild tricuspid regurgitation. The estimated pulmonary arterial pressure is 37 mmHg. PULMONARY VALVE No pulmonary valve regurgitation or stenosis. VESSELS The inferior vena cava is normal in size. PERICARDIUM No pericardial effusion. Kosta Augustine MD (Electronically Signed) Final Date:11 August 2017 16:37
--- NOTE | 2017-08-11 17:55 | HHI.NPPN ---
Subjective General Problems: Heart Disease Renal Failure: Chronic, Acute, Stage III History of Present Illness 71-year-old female with past medical history of hypertension, diabetes mellitus, ischemic heart disease, post coronary artery bypass grafting, chronic obstructive pulmonary disease, diabetes mellitus, peripheral vascular disease, and possible chronic kidney disease, who came to the hospital with atrial fibrillation and rapid ventricular rate. I was called to see the patient because of elevated BUN and creatinine. The patient has a creatinine of 1.59 on admission. Additional Remarks Patient seen in the afternoon, breathing is better, with nasal cannula. Review of Systems Cardiovascular Cardiac: MARQUEZ Cardiac Remarks Denies CP Gastrointestinal GI Remarks No abdominal pain Objective Data Data Vital Signs Date Time Temp Pulse Resp B/P (MAP) Pulse Ox O2 Delivery O2 Flow Rate FiO2 08/11/17 08:00 85 08/11/17 08:00 97.2 73 20 97/61 (73) 95 08/11/17 08:00 Nasal Cannula 3.00 08/11/17 04:52 98.1 86 16 128/57 (80) 97 08/11/17 04:00 Nasal Cannula 3.00 08/11/17 03:48 75 08/11/17 00:48 84 16 112/63 (79) 98 08/11/17 00:00 Nasal Cannula 2.00 08/10/17 23:44 95 08/10/17 21:46 21 08/10/17 21:00 Nasal Cannula 2.00 08/10/17 20:07 97 08/10/17 20:00 97.8 94 18 100/68 (79) 98 -: 08/11/17 0545 08/11/17 0545 Physical Exam General Appearance: No Acute Distress, Comfortable Eyes Eye Exam: Pupils Equal Throat Throat Exam: Oral Mucosa Hodges & Moist Neck Neck Exam: Neck Supple Pulmonary Resp Exam: Breath Sounds Equal, No Distress, Diminished Breath Sounds Cardiology CV Exam: Regular, Normal Sinus Rhythm Gastrointestinal/Abdomen GI Exam: Soft, Non-Tender, Bowel Sounds Present Extremeties Extremities Exam: Trace Edema Neurologic Neuro Exam: Alert, Awake, Oriented Psychiatric Psych Exam: Appropriate Responses Assessment/Plan Assessment Summary: MARSHALL/Acute Renal Failure, Hypertension, CKD Stage III Problem List: (1) Chronic kidney disease (CKD) ICD Codes: N18.9 - Chronic kidney disease, unspecified Plan: Patient has stage 3 chronic kidney disease, possibly due to Hypertensive or Diabetic renal disease. Develop MARSHALL, possibly related to contrast. Creatinine stable S/P heart cath 08/05 with stent placement Plan Plans for possible discharge today Has stage 3 chronic kidney disease and develop MARSHALL, most likely contrast related. Creatinine is stable, now 1.6, close to her baseline. Now for D/C to SNF. Follow up with me in 1 month. (2) Atrial fibrillation with RVR ICD Codes: I48.91 - Unspecified atrial fibrillation Plan: rate controlled on Eliquis (3) Hypertension ICD Codes: I10 - Essential (primary) hypertension Status: Chronic (4) Diabetes ICD Codes: E11.9 - Type 2 diabetes mellitus without complications Plan: Maintain BS 140 to 180 mg/dl (5) COPD (chronic obstructive pulmonary disease) ICD Codes: J44.9 - Chronic obstructive pulmonary disease, unspecified Status: Chronic Plan: Breathing treatments PRN (6) NSTEMI (non-ST elevated myocardial infarction) ICD Codes: I21.4 - Non-ST elevation (NSTEMI) myocardial infarction Status: Acute Plan: S/P stent placement Plan . Problem Qualifiers (1) Chronic kidney disease (CKD): Qualified Codes: N18.9 - Chronic kidney disease, unspecified (2) Diabetes: Jessica Lay MD Aug 11, 2017 17:54
== END 2017-08-11 14:50 | DRG 246 ==
LOC: NEPE 16:50 → NEDA 19:44 → NEDH 07-30 03:50 → HIME 07-30 08:05 → N04A 08-06 22:02
PROVIDERS: ADMIT Family Medicine; ATTEND Family Medicine
PROC: 5A09357 Assistance with Respiratory Ventilation, Less than 24 Consecutive Hours, Continuous Positive Airway Pressure (ICD-10-PCS; 2017-07-29)
PROC: X2C0361 Extirpation of Matter from Coronary Artery, One Artery using Orbital Atherectomy Technology, Percutaneous Approach, New Technology Group 1 (ICD-10-PCS; 2017-08-05)
PROC: B241ZZ3 Ultrasonography of Multiple Coronary Arteries, Intravascular (ICD-10-PCS; 2017-08-05)
PROC: 4A023N7 Measurement of Cardiac Sampling and Pressure, Left Heart, Percutaneous Approach (ICD-10-PCS; 2017-08-05)
PROC: B2121ZZ Fluoroscopy of Single Coronary Artery Bypass Graft using Low Osmolar Contrast (ICD-10-PCS; 2017-08-05)
PROC: B2181ZZ Fluoroscopy of Left Internal Mammary Bypass Graft using Low Osmolar Contrast (ICD-10-PCS; 2017-08-05)
PROC: B2111ZZ Fluoroscopy of Multiple Coronary Arteries using Low Osmolar Contrast (ICD-10-PCS; 2017-08-05)
PROC: 027136Z Dilation of Coronary Artery, Two Arteries with Three Drug-eluting Intraluminal Devices, Percutaneous Approach (ICD-10-PCS; principal; 2017-08-05 07:30)
DX: I21.4 Non-ST elevation (NSTEMI) myocardial infarction (principal); J18.9 Pneumonia, unspecified organism; N17.9 Acute kidney failure, unspecified; I13.0 Hypertensive heart and chronic kidney disease with heart failure and stage 1 through stage 4 chronic kidney disease, or unspecified chronic kidney disease; E11.22 Type 2 diabetes mellitus with diabetic chronic kidney disease; E11.51 Type 2 diabetes mellitus with diabetic peripheral angiopathy without gangrene; I50.9 Heart failure, unspecified; E66.01 Morbid (severe) obesity due to excess calories; I25.719 Atherosclerosis of autologous vein coronary artery bypass graft(s) with unspecified angina pectoris; J44.0 Chronic obstructive pulmonary disease with (acute) lower respiratory infection; J44.1 Chronic obstructive pulmonary disease with (acute) exacerbation; R06.03 Acute respiratory distress; I25.119 Atherosclerotic heart disease of native coronary artery with unspecified angina pectoris; I48.91 Unspecified atrial fibrillation; N18.3 Chronic kidney disease, stage 3 (moderate); F17.210 Nicotine dependence, cigarettes, uncomplicated; M19.90 Unspecified osteoarthritis, unspecified site; Z96.651 Presence of right artificial knee joint; K21.9 Gastro-esophageal reflux disease without esophagitis; K59.00 Constipation, unspecified; Z95.820 Peripheral vascular angioplasty status with implants and grafts; Z95.1 Presence of aortocoronary bypass graft; Z90.710 Acquired absence of both cervix and uterus; Z91.19 Patient's noncompliance with other medical treatment and regimen; Z80.41 Family history of malignant neoplasm of ovary; Z83.3 Family history of diabetes mellitus; Z68.32 Body mass index [BMI] 32.0-32.9, adult; E78.5 Hyperlipidemia, unspecified; I25.5 Ischemic cardiomyopathy; M54.5 Low back pain; Z79.84 Long term (current) use of oral hypoglycemic drugs; Z79.82 Long term (current) use of aspirin
CPT/HCPCS: 33210; 71045; 71046; 71275; 76775; 80048; 80053; 80061; 81001; 82550; 82948; 83735; 83880; 84484; 85025; 85027; 85610; 85730; 87040; 87086; 87641; 92933; 92978; 93005; 93306; 93454; 94002; 94150; 94640; 94664; 96374; 96375; 99152; 99153; C1714; C1725; C1753; C1769; C1874; C1887; C1893; J0583; J1644; J1815; J1940; J2250; J2270; J2370; J2405; J2543; J2930; J3370; J7030; J7050; J7512; J7613; Q9967

== ENCOUNTER 2017-09-09 12:42 | Observation (INO) | payer MEDICARE ==
[~2017-09-09] VITALS: Ht 162.6 cm; Wt 83.7 kg
[2017-09-09] MEDS: BUDESONIDE-FORMOTEROL 160/4.5 MCG INHALER INH SCH
[~2017-09-09 12:42] MED LIST changes: +ADVA250A INH; -AMLO10TA2 PO; +APIX2.5T PO; -ASPI1TAB57 PO; +ASPI81 PO; +Albuterol-Ipratropium Neb NEB; +BRIL90TA PO; +DILT240C44 PO; +GABA300C5 PO; +ISOS30TA3 PO; +LEVO750T3 PO; -LISI10TA3 PO; -MELO15TA20 PO; +METO-309 PO; +OXYGENTANK NAS.CANULA; -VARE1 PO
[2017-09-09 12:55] VITALS: BP 129/82; PULSE 142; RESP 22; TEMP 98.4; O2SAT 93; O2SAT 97
[2017-09-09] MEDS ORDERED: SODIUM CHLORIDE 0.9% FLUSH 10 ML FLUSH IVF PRN (13:00)
[2017-09-09] MEDS ORDERED: METOPROLOL TARTRATE 5 MG/5 ML VIAL IV PUSH ONE (13:00)
[2017-09-09 13:09] VITALS: BP 110/54; PULSE 120; RESP 22; O2SAT 98
[2017-09-09] MEDS ORDERED: AMLO5TAB2 PO (13:19)
[2017-09-09] MEDS ORDERED: FURO20TA PO (13:19)
[2017-09-09] MEDS ORDERED: LYRI150C PO (13:19)
[2017-09-09] MEDS ORDERED: LISI10TA3 PO (13:19)
[2017-09-09] MEDS ORDERED: HYDR-3516 PO (13:19)
[2017-09-09] MEDS ORDERED: PLAV75TA29 PO (13:19)
[2017-09-09 13:27] LABS: AUTOMATED NEUTROPHIL # 5.9 TH/MM3 (1.8-7.7); BASOPHIL # 0.1 TH/MM3 (0-0.2); EOSINOPHIL # 0.4 TH/MM3 (0-0.4); EOSINOPHIL % 4.2 % (0.0-4.0); HEMATOCRIT 34.3 % (35.0-46.0); HEMOGLOBIN 11.4 GM/DL (11.6-15.3); LYMPH % 17.9 % (9.0-44.0); LYMPHOCYTE # 1.6 TH/MM3 (1.0-4.8); MEAN CELL VOLUME 94.7 FL (80.0-100.0); MEAN CORPUSCULAR HEMOGLOBIN 31.4 PG (27.0-34.0); MEAN CORPUSCULAR HGB CONC 33.2 % (32.0-36.0); MEAN PLATELET VOLUME 9.3 FL (7.0-11.0); MONO % 9.1 % (0.0-8.0); MONOCYTE # 0.8 TH/MM3 (0-0.9); NEUT % 67.8 % (16.0-70.0); PLATELET COUNT 215 TH/MM3 (150-450); RED BLOOD COUNT 3.63 MIL/MM3 (4.00-5.30); RED CELL DISTRIBUTION WIDTH 14.5 % (11.6-17.2); WHITE BLOOD COUNT 8.8 TH/MM3 (4.0-11.0)
[2017-09-09 13:39] LABS: INTERNATIONAL NORMALIZED RATIO 1.1 RATIO; PROTHROMBIN TIME - PATIENT 11.5 SEC (9.8-11.6)
--- NOTE | 2017-09-09 13:39 | RADRPT ---
EXAM DATE/TIME: 09/09/2017 13:09 [facility] COMPARISON: CHEST SINGLE AP, July 31, 2017, 4:41. INDICATIONS : Chest pains with pressure and shortness of breath. MEDICAL HISTORY : Myocardial infarction. SURGICAL HISTORY : Coronary artery stent. CABG. ENCOUNTER: Initial ACUITY: 2 days PAIN SCORE: 5/10 LOCATION: Bilateral chest FINDINGS: A single view of the chest demonstrates the lungs to be symmetrically aerated without evidence of mas s, infiltrate or effusion. Sternal wires previous bypass are noted. The cardiomediastinal contours are unremarkable. Osseous structures are intact. CONCLUSION: No acute disease. Mat Franz MD FACR on September 09, 2017 at 13:36 Board Certified Radiologist. This report was verified electronically.
[2017-09-09 13:45] LABS: ALBUMIN 3.7 GM/DL (3.4-5.0); AST (GOT) 23 U/L (15-37); BICARBONATE 21.6 MEQ/L (21.0-32.0); BLOOD UREA NITROGEN 17 MG/DL (7-18); CALCIUM 9.3 MG/DL (8.5-10.1); CHLORIDE 104 MEQ/L (98-107); GLOMERULAR FILTRATION RATE 26 ML/MIN (>89); GLUCOSE,RANDOM 103 MG/DL (74-106); MAGNESIUM 1.8 MG/DL (1.5-2.5); SODIUM (NA) 137 MEQ/L (136-145)
[2017-09-09 13:52] LABS: ALKALINE PHOSPHATASE 100 U/L (45-117); ALT (GPT) 23 U/L (10-53); TOTAL BILIRUBIN ADULT 0.6 MG/DL (0.2-1.0); TOTAL PROTEIN 7.5 GM/DL (6.4-8.2); TROPONIN I LESS THAN 0.02 NG/ML (0.02-0.05)
--- NOTE | 2017-09-09 14:22 | HHI.HP ---
[facility] Service Family Medicine Primary Care Physician Barak Madden MD (Ditcher Operator) Admission Diagnosis Diagnoses: International Travel<30 Days: No Contact w/Intl Traveler<30days: No Known Affected Area: No History of Present Illness 71-year-old female with a significant cardiac history including triple bypass in 2005, nstemi with 2 stent placement in 08/2017; being closely followed with her health promotion manager, Dr. Madden. Patient states she checks her heart rate regularly with her blood pressure cuff. She states for most days since being discharged in August, her heart rate has been elevated greater than 110; she states she saw her health promotion manager a couple of weeks ago, but she is not sure what her heart rate was at that time. Patient states earlier today she was with her sister and her sister commented that she did not look good. She noticed her heart rate was elevated to 130. She called her health promotion manager office who recommended she come to the emergency room. Patient states overall she has been feeling very tired for the past few weeks. She states she will walk 10 paces and become out of breath. Furthermore, she is unable to lay flat; she states she sleeps in a recliner and when she lays flat, she becomes severely short of breath. She has been feeling palpitations since being in the emergency room, and not before. Her health promotion manager was reached while the patient was in the emergency room and it was recommended to discontinue amlodipine and start rate control with p.o. Cardizem. She denies chest pain, nausea, vomiting, fever, chills. (Dayo Parry MD R3) Review of Systems Constitutional: DENIES: Fever, Chills Eyes: DENIES: Blurred vision, Diplopia Respiratory: COMPLAINS OF: Cough, Sputum production, Shortness of breath, DENIES: Apneas Cardiovascular: COMPLAINS OF: Palpitations, DENIES: Chest pain, Syncope Gastrointestinal: COMPLAINS OF: Constipation, DENIES: Abdominal pain, Black stools, Bloody stools, Diarrhea, Nausea, Vomiting Neurologic: DENIES: Abnormal gait, Headache Psychiatric: DENIES: Anxiety, Confusion (Dayo Parry MD R3) Past Family Social History Past Medical History Chronic Lower back pain Diabetes Type 2 - controlled metformin Hypertension Chronic Kidney Disease stage 3 (GFR 39, in 12/2016) COPD A fib Past Surgical History Cardiac stents x 2 on 08/2017 3 stents in lower extremity Dr. Gardiner; 2016 (Left and right legs, and abdominal aorta) Right knee replacement; 2014 Dr. Alexander Lumbar Spine L5-S1 repair (2 spacers and rods, some hardware removed during second surgery); 2013 Dr. Valdes Right and Left Cataracts; , Dr. Montoya Triple CABG 2005; Dr. Romano Total Hysterectomy 1974 Foot surgery in 1973 Reported Medications Reported Meds & Active Scripts Active Oxygen tank (Oxygen) 1 Ea Tank Liter PA.CANULA CONTINUOUS Oxygen Concentrator Portable Gaseous 2 L/min via Nasal Cannula Continuous (she is not on this at home, but is trying to get it) For 99 months Isosorbide Mononitrate ER (Isosorbide Mononitrate) 30 Mg Sagar 30 Mg PO DAILY@ 07 30 Days Diltiazem CD 24 HR 240 Mg Caper 240 Mg PO DAILY 30 Days [Albuterol-Ipratropium Neb] 1 AMPULE Nebu 1 Ampule NEB Q6HR NEB PRN 14 Days Lopressor (Metoprolol Tartrate) 25 Mg Tab 25 Mg PO Q12HR Metformin (Metformin HCl) 500 Mg Tab 500 Mg PO DAILY With a meal Atorvastatin (Atorvastatin Calcium) 40 Mg Tab 40 Mg PO HS Reported Lyrica (Pregabalin) 150 Mg Cap 150 Mg PO DAILY Furosemide 20 Mg Tab 20 Mg PO DAILY Plavix (Clopidogrel Bisulfate) 75 Mg Tab 75 Mg PO DAILY Lisinopril 10 Mg Tab 10 Mg PO DAILY Amlodipine (Amlodipine Besylate) 5 Mg Tab 5 Mg PO DAILY- stopping this per cardiology Hydrocodone-Acetaminophen 5-325 mg Tab 1 Tab PO Q6H PRN- for back pain Advair Diskus Inh (Fluticasone-Salmeterol Inh) 250-50 Mcg/Blist Aer 1 Puff INH BID Rinse mouth after use. Gabapentin 300 Mg Cap 300 Mg PO HS Ventolin Hfa 18 GM Inh (Albuterol Sulfate) 90 Mcg/Act Aer 2 Puff INH Q4H PRN (Dayo Parry MD R3) Allergies: Coded Allergies: No Known Allergies (Unverified Allergy, Unknown, 07/29/17) Active Ordered Medications Active Medications Metoprolol Tartrate (Lopressor Inj) 5 mg ONCE ONCE IV PUSH Last administered on 09/09/17at 13:07; Admin Dose 5 MG; Start 09/09/17 at 13:00; Stop 09/09/17 at 13: 02; Status DC Sodium Chloride (NS Flush) 2 ml UNSCH PRN IVF; Start 09/09/17 at 13:00 Family History Father - Diabetes Mellitus, passed at age of 69 y/o Mother - Ovarian cancer at the age 53 y/o 2 sisters - Good health 82 y/o, Nandini 76 y/o 3 children - healthy, son with HTN Social History Retired, lives alone and independent in activities of ADLs; however her sister goes to the grocery store. Ambulates with walker at baseline. Current smoker: 4 cigarettes per day since a couple of wks ago, prior smoking habit:1 ppd for past 55 years, Denies alcohol and illicit drug use Son's contact info: Madhav Sosa [phone] (Dayo Parry MD R3) Physical Exam Vital Signs Vital Signs Date Time Temp Pulse Resp B/P (MAP) Pulse Ox O2 Delivery O2 Flow Rate FiO2 09/09/17 13:09 120 22 110/54 (72) 98 Nasal Cannula 2.00 09/09/17 12:55 97 Nasal Cannula 2.00 09/09/17 12:55 97 Nasal Cannula 2.00 09/09/17 12:55 98.4 142 22 129/82 (98) 93 09/09/17 12:55 135 24 93 Room Air Physical Exam GENERAL: This is a well-nourished, well-developed patient, in no apparent distress. SKIN: Cool and dry. HEAD: Atraumatic. Normocephalic. No temporal or scalp tenderness. EYES: Pupils equal round and reactive. Extraocular motions intact. No scleral icterus. No injection or drainage. ENT: Nose without bleeding, purulent drainage or septal hematoma. Throat without erythema, tonsillar hypertrophy or exudate. Uvula midline. Airway patent. NECK: Trachea midline. No JVD or lymphadenopathy. Supple, nontender, no meningeal signs. CARDIOVASCULAR: Tachycardic rate and irregular rhythm without murmurs, gallops, or rubs. RESPIRATORY: Mild expiratory wheezes, more prominent on the right. GASTROINTESTINAL: Abdomen soft, non-tender, nondistended. No hepato-splenomegaly , or palpable masses. No guarding. MUSCULOSKELETAL: Extremities without clubbing, cyanosis, or edema. No joint tenderness, effusion. Mild 1+ pedal edema of the right foot. No calf tenderness. Negative Homans sign bilaterally. NEUROLOGICAL: Awake and alert. Cranial nerves II through XII intact. Motor and sensory grossly within normal limits. Five out of 5 muscle strength in all muscle groups. Normal speech. Laboratory Laboratory Tests Test 09/09/17 13:00 White Blood Count 8.8 Red Blood Count 3.63 Hemoglobin 11.4 Hematocrit 34.3 Mean Corpuscular Volume 94.7 Mean Corpuscular Hemoglobin 31.4 Mean Corpuscular Hemoglobin Concent 33.2 Red Cell Distribution Width 14.5 Platelet Count 215 Mean Platelet Volume 9.3 Neutrophils (%) (Auto) 67.8 Lymphocytes (%) (Auto) 17.9 Monocytes (%) (Auto) 9.1 Eosinophils (%) (Auto) 4.2 Basophils (%) (Auto) 1.0 Neutrophils # (Auto) 5.9 Lymphocytes # (Auto) 1.6 Monocytes # (Auto) 0.8 Eosinophils # (Auto) 0.4 Basophils # (Auto) 0.1 CBC Comment DIFF FINAL Differential Comment Prothrombin Time 11.5 Prothromb Time International Ratio 1.1 Activated Partial Thromboplast Time 27.1 Blood Urea Nitrogen 17 Creatinine 1.90 Random Glucose 103 Total Protein 7.5 Albumin 3.7 Calcium Level 9.3 Magnesium Level 1.8 Alkaline Phosphatase 100 Aspartate Amino Transf (AST/SGOT) 23 Alanine Aminotransferase (ALT/SGPT) 23 Total Bilirubin 0.6 Sodium Level 137 Potassium Level 4.0 Chloride Level 104 Carbon Dioxide Level 21.6 Anion Gap 11 Estimat Glomerular Filtration Rate 26 Total Creatine Kinase 97 Troponin I LESS THAN 0.02 B-Type Natriuretic Peptide 699 Lipase 73 (Dayo Parry MD R3) Result Diagram: 09/09/17 1300 09/09/17 1300 Imaging Last Impressions Chest X-Ray 09/09/17 1300 Signed Impressions: Service Date/Time: Saturday, September 09, 2017 13:09 - CONCLUSION: No acute disease. Mat Franz MD FACR (Dayo Parry MD R3) Caprini VTE Risk Assessment Caprini VTE Risk Assessment: Mod/High Risk (score >= 2) Caprini Risk Assessment Model Point Value = 1 Point Value = 2 Point Value = 3 Point Value = 5 Age 41-60 Minor surgery BMI > 25 kg/m2 Swollen legs Varicose veins or History of unexplained or recurrent spontaneous Oral contraceptives or hormone replacement Sepsis (< 1 month) Serious lung disease, including pneumonia (< 1 month) Abnormal pulmonary function Acute myocardial infarction Congestive heart failure (< 1 month) History of inflammatory bowel disease Medical patient at bed rest Age 61-74 Arthroscopic surgery Major open surgery (> 45 min) Laparoscopic surgery (> 45 min) Malignancy Confined to bed (> 72 hours) Immobilizing plaster cast Central venous access Age >= 75 History of VTE Family history of VTE Factor V Leiden Prothrombin [id number] Lupus anticoagulant Anticardiolipin antibodies Elevated serum homocysteine Heparin-induced thrombocytopenia Other congenital or acquired thrombophilia Stroke (< 1 month) Elective arthroplasty Hip, pelvis, or leg fracture Acute spinal cord injury (< 1 month) Prophylaxis Regimen Total Risk Factor Score Risk Level Prophylaxis Regimen 0-1 Low Early ambulation 2 Moderate Order ONE of the following: *Sequential Compression Device (SCD) *Heparin 5000 units SQ BID 3-4 Higher Order ONE of the following medications: *Heparin 5000 units SQ TID *Enoxaparin/Lovenox 40 mg SQ daily (WT < 150 kg, CrCl > 30 mL/min) *Enoxaparin/Lovenox 30 mg SQ daily (WT < 150 kg, CrCl > 10-29 mL/min) *Enoxaparin/Lovenox 30 mg SQ BID (WT < 150 kg, CrCl > 30 mL/min) AND/OR *Sequential Compression Device (SCD) 5 or more Highest Order ONE of the following medications: *Heparin 5000 units SQ TID (Preferred with Epidurals) *Enoxaparin/Lovenox 40 mg SQ daily (WT < 150 kg, CrCl > 30 mL/min) *Enoxaparin/Lovenox 30 mg SQ daily (WT < 150 kg, CrCl > 10-29 mL/min) *Enoxaparin/Lovenox 30 mg SQ BID (WT < 150 kg, CrCl > 30 mL/min) AND *Sequential Compression Device (SCD) (Dayo Parry MD R3) Assessment and Plan Assessment and Plan 71-year-old female with extensive cardiac history presents with atrial fibrillation RVR. Given 5 mg IV metoprolol in the emergency room, will continue with Cardizem 60 mg p.o. 4 times daily and cardiology consult. Code Status Full code Discussed Condition With Dr. Shaikh (Dayo Parry MD R3) Problem List: (1) Atrial fibrillation with RVR ICD Codes: I48.91 - Unspecified atrial fibrillation Status: Acute Plan: Per HPI, likely patient has been in RVR for multiple days Admit to CCU Cardiology, Dr. Madden, consulted Repeat ECHO Given 5 mg IV metoprolol in the emergency room Per cardiology, continue Cardizem p.o. 60 mg 4 times daily Continue metoprolol 50 mg twice daily If continues to fail obtaining rate control, consider increasing cardizem vs IV metoprolol vs amiodarone vs digoxin Anticoagulation as below and per cardiology recommendations Chads 2 score greater than 2 monitoring coordinator (2) CAD (coronary artery disease) ICD Codes: I25.10 - Atherosclerotic heart disease of [place] coronary artery without angina pectoris Status: Chronic Plan: History of triple bypass and recently 2 stents placed in August Continues to smoke Follows with cardiology Continue Plavix, atorvastatin, lisinopril Smoking abuse counseling provided (3) CHF (congestive heart failure) ICD Codes: I50.9 - Heart failure, unspecified Status: Chronic Plan: Echo 08/2017-ejection fraction 45-50% Continue metoprolol, lisinopril, Lasix Cardiology consulted (4) COPD (chronic obstructive pulmonary disease) ICD Codes: J44.9 - Chronic obstructive pulmonary disease, unspecified Status: Chronic Plan: Patient needs to quit smoking Counseling provided Continue inhalers while inpatient Patient is requesting oxygen, may need an oxygen walk test prior to discharge Oxygen as needed to keep sats greater than 92% while inpatient (5) Diabetes ICD Codes: E11.9 - Type 2 diabetes mellitus without complications Plan: Continue medical management as above On metformin as an outpatient, will hold while inpatient; Given kidney disease, patient may need to be on a different medication ( glipizide) upon discharge; to be discussed with the patient Sliding scale insulin while inpatient (6) Hypertension ICD Codes: I10 - Essential (primary) hypertension Status: Chronic Plan: Continue medications as above (7) Chronic kidney disease (CKD) ICD Codes: N18.9 - Chronic kidney disease, unspecified Plan: Avoid nephrotoxins May need to change metformin as an outpatient given low GFR (8) Nutrition, metabolism, and development symptoms ICD Codes: R63.8 - Other symptoms and signs concerning food and fluid intake Status: Acute Plan: Fluids: Tolerating p.o. Electrolytes: Monitor and replace as needed Nutrition: Heart healthy diet Prophylaxis: Heparin 3 times daily (Dayo Parry MD R3) Problem List: (1) Atrial fibrillation with RVR ICD Codes: I48.91 - Unspecified atrial fibrillation Status: Acute Plan: Per HPI, likely patient has been in RVR for multiple days Admit to CCU Cardiology, Dr. Madden, consulted Repeat ECHO Given 5 mg IV metoprolol in the emergency room Per cardiology, continue Cardizem p.o. 60 mg 4 times daily Continue metoprolol 50 mg twice daily If continues to fail obtaining rate control, consider increasing cardizem vs IV metoprolol vs amiodarone vs digoxin Anticoagulation as below and per cardiology recommendations Chads 2 score greater than 2 monitoring coordinator (2) CAD (coronary artery disease) ICD Codes: I25.10 - Atherosclerotic heart disease of [place] coronary artery without angina pectoris Status: Chronic Plan: History of triple bypass and recently 2 stents placed in August Continues to smoke Follows with cardiology Continue Plavix, atorvastatin, lisinopril Smoking abuse counseling provided (3) CHF (congestive heart failure) ICD Codes: I50.9 - Heart failure, unspecified Status: Chronic Plan: Echo 08/2017-ejection fraction 45-50% Continue metoprolol, lisinopril, Lasix Cardiology consulted (4) COPD (chronic obstructive pulmonary disease) ICD Codes: J44.9 - Chronic obstructive pulmonary disease, unspecified Status: Chronic Plan: Patient needs to quit smoking Counseling provided Continue inhalers while inpatient Patient is requesting oxygen, may need an oxygen walk test prior to discharge Oxygen as needed to keep sats greater than 92% while inpatient (5) Diabetes ICD Codes: E11.9 - Type 2 diabetes mellitus without complications Plan: Continue medical management as above On metformin as an outpatient, will hold while inpatient; Given kidney disease, patient may need to be on a different medication ( glipizide) upon discharge; to be discussed with the patient Sliding scale insulin while inpatient (6) Hypertension ICD Codes: I10 - Essential (primary) hypertension Status: Chronic Plan: Continue medications as above (7) Chronic kidney disease (CKD) ICD Codes: N18.9 - Chronic kidney disease, unspecified Plan: Avoid nephrotoxins May need to change metformin as an outpatient given low GFR (8) Nutrition, metabolism, and development symptoms ICD Codes: R63.8 - Other symptoms and signs concerning food and fluid intake Status: Acute Plan: Fluids: Tolerating p.o. Electrolytes: Monitor and replace as needed Nutrition: Heart healthy diet Prophylaxis: Heparin 3 times daily Patient will be placed on Lovenox. We will then transfer him to Eliquis or rel. See the residents documentation for details. I saw and evaluated the patient regarding the guadalupe portions of this evaluation and agree with the residents findings and plans as written. Parts of this note were created using [employer] voice recognition software program. While efforts were made to correct any mistakes made by this software, some mistakes, errors, and omissions may remain in the final note that were not caught when the note was originally created. Plan of care was discussed and agreed upon with the patient as specifically documented in the above note. An opportunity to ask questions with explanation was provided. Patient voiced understanding on all information reviewed and discussed. (Adi Paz MD) Physician Certification 2 Midnight Certification Type: Admission for Inpatient Services Order for Inpatient Services The services are ordered in accordance with Medicare regulations or non- Medicare payer requirements, as applicable. In the case of services not specified as inpatient-only, they are appropriately provided as inpatient services in accordance with the 2-midnight benchmark. Estimated LOS (days): 2 days is the estimated time the patient will need to remain in the hospital, assuming treatment plan goals are met and no additional complications. Post-Hospital Plan: Not yet determined (Dayo Parry MD R3) Problem Qualifiers (1) CAD (coronary artery disease): Qualified Codes: I25.10 - Atherosclerotic heart disease of [place] coronary artery without angina pectoris (2) CHF (congestive heart failure): Qualified Codes: I50.9 - Heart failure, unspecified (3) COPD (chronic obstructive pulmonary disease): Qualified Codes: J44.9 - Chronic obstructive pulmonary disease, unspecified (4) Diabetes: Qualified Codes: E11.8 - Type 2 diabetes mellitus with unspecified complications (5) Hypertension: Qualified Codes: I10 - Essential (primary) hypertension (6) Chronic kidney disease (CKD): Qualified Codes: N18.3 - Chronic kidney disease, stage 3 (moderate) Dayo Parry MD R3 September 09, 2017 14:22 Adi Paz MD September 10, 2017 14:48
[2017-09-09] MEDS ORDERED: ALBUTEROL SULFATE 90 MCG/ACT HFA 8 GM INHALER INH PRN (14:45)
[2017-09-09] MEDS ORDERED: ACETAMINOPHEN/HYDROcodone 325 MG/5 MG TAB PO PRN (14:45)
--- NOTE | 2017-09-09 14:53 | PD ---
HPI Chief Complaint: Cardiac Complaint Time Seen by Provider: 12:52 Travel History International Travel<30 days: No Contact w/Intl Traveler<30days: No Traveled to known affect area: No History of Present Illness HPI 71-year-old female that presents to the ED for evaluation of shortness of breath with exertion and heart rate elevated. Patient was recently evaluated here just about a month ago. Patient was admitted to the hospital secondary to A. fib and RVR with COPD exacerbation and had to have a heart cath that showed severe stenosis of the arteries having to have 3 stents. She states that ever since having the stents and being released she has been having shortness of breath but she is noted that is being worsening the past couple of days. Per patient she today check her heart rate and was very high. She try to call her cone examiner Dr. Madden and the recommended that she comes here because of her heart rate being so high. She states compliance with her medications. She takes amlodipine, Cardizem as well as metoprolol and Plavix. She denies any chest pain. No chest pressure. Per patient she does not have any other symptoms and she had when she had the stents other than the shortness of breath. She denies any head injury. No falls. She does have a history of COPD and continues to smoke. History of high cholesterol and hypertension. She has currently no pain. No urinary or bowel movement issues. PFSH Past Medical History Arthritis: Yes Cancer: No Cardiovascular Problems: Yes High Cholesterol: Yes Chest Pain: Yes COPD: Yes Coronary Artery Disease: Yes Diabetes: Yes Diminished Hearing: No Hypertension: Yes Musculoskeletal: Yes Neurologic: No Psychiatric: No Respiratory: Yes Ectopic : Yes Past Surgical History Cardiac Surgery: Yes (triple bypass) Hysterectomy: Yes Other Surgery: Yes (right knee, karen feet, stents L and R leg AND Aorta, cataracts, detached ret) Social History Alcohol Use: Yes (RARELY) Tobacco Use: Yes Substance Use: No Allergies-Medications (Allergen,Severity, Reaction): Coded Allergies: No Known Allergies (Unverified Allergy, Unknown, 07/29/17) Reported Meds & Prescriptions Reported Meds & Active Scripts Active Oxygen tank (Oxygen) 1 Ea Tank Liter PA.CANLOOKSIMA CONTINUOUS Oxygen Concentrator Portable Gaseous 2 L/min via Nasal Cannula Continuous For 99 months Levofloxacin 750 Mg Tablet 750 Mg PO DAILY 4 Days Tgt Aspirin (Aspirin) 81 Mg Chw 81 Mg PO DAILY 30 Days Isosorbide Mononitrate ER (Isosorbide Mononitrate) 30 Mg Sagar 30 Mg PO DAILY@ 07 30 Days [Albuterol-Ipratropium Neb] 1 AMPULE Nebu 1 Ampule NEB Q6HR NEB PRN 14 Days Lopressor (Metoprolol Tartrate) 50 Mg Tab 50 Mg PO Q12HR Brilinta (Ticagrelor) 90 Mg Tab 90 Mg PO BID Metformin (Metformin HCl) 500 Mg Tab 500 Mg PO DAILY With a meal Atorvastatin (Atorvastatin Calcium) 40 Mg Tab 40 Mg PO HS Reported Lyrica (Pregabalin) 150 Mg Cap 150 Mg PO DAILY Furosemide 20 Mg Tab 20 Mg PO DAILY Plavix (Clopidogrel Bisulfate) 75 Mg Tab 75 Mg PO DAILY Lisinopril 10 Mg Tab 10 Mg PO DAILY Amlodipine (Amlodipine Besylate) 5 Mg Tab 5 Mg PO DAILY Hydrocodone-Acetaminophen 5-325 mg Tab 1 Tab PO Q6H PRN Advair Diskus Inh (Fluticasone-Salmeterol Inh) 250-50 Mcg/Blist Aer 1 Puff INH BID Rinse mouth after use. Ventolin Hfa 18 GM Inh (Albuterol Sulfate) 90 Mcg/Act Aer 2 Puff INH Q4H PRN Review of Systems Except as stated in HPI: all other systems reviewed are Neg Physical Exam Narrative GENERAL: SKIN: Warm and dry. HEAD: Atraumatic. Normocephalic. EYES: Pupils equal and round. No scleral icterus. No injection or drainage. ENT: No nasal bleeding or discharge. Mucous membranes pink and moist. Tongue is midline. No blood deviation. NECK: Trachea midline. No JVD. CARDIOVASCULAR: Irregular rate and rhythm. No murmurs, S3, S4. RESPIRATORY: No accessory muscle use. Clear to auscultation. Breath sounds equal bilaterally. GASTROINTESTINAL: Abdomen soft, non-tender, nondistended. Hepatic and splenic margins not palpable. MUSCULOSKELETAL: Extremities without clubbing, cyanosis, or edema. No obvious deformities. Full range of motion of the upper and lower extremities bilaterally. 2+ pulses bilaterally. NEUROLOGICAL: Awake and alert. No obvious cranial nerve deficits. Motor grossly within normal limits. Five out of 5 muscle strength in the arms and legs. Normal speech. PSYCHIATRIC: Appropriate mood and affect; insight and judgment normal. Data Data Last Documented VS Vital Signs Date Time Temp Pulse Resp B/P (MAP) Pulse Ox O2 Delivery O2 Flow Rate FiO2 09/09/17 13:09 120 22 110/54 (72) 98 Nasal Cannula 2.00 09/09/17 12:55 98.4 Orders Orders Electrocardiogram (09/09/17 13:00) B-Type Natriuretic Peptide (09/09/17 13:00) Ckmb (Isoenzyme) Profile (09/09/17 13:00) Complete Blood Count With Diff (09/09/17:) Comprehensive Metabolic Panel (09/09/17:00) Magnesium (Mg) (09/09/17:00) Prothrombin Time / Inr (Pt) (09/09/17:00) Act Partial Throm Time (Ptt) (09/09/17:00) Troponin I (09/09/17:00) Lipase (09/09/17 13:00) Chest, Single Ap (09/09/17:00) Ecg Monitoring (09/09/17:00) Bilateral Bp Monitoring (09/09/17:00) Iv Access Insert/Monitor (09/09/17:00) Oximetry (09/09/17 13:00) Oxygen Administration (09/09/17 13:00) Sodium Chloride 0.9% Flush (Ns Flush) (09/09/17 13:00) Metoprolol Tartrate Inj (Lopressor Inj) (09/09/17 13:00) Admit Order (Ed Use Only) (09/09/17 14:29) Labs Laboratory Tests Test 09/09/17 13:00 White Blood Count 8.8 TH/MM3 Red Blood Count 3.63 MIL/MM3 Hemoglobin 11.4 GM/DL Hematocrit 34.3 % Mean Corpuscular Volume 94.7 FL Mean Corpuscular Hemoglobin 31.4 PG Mean Corpuscular Hemoglobin Concent 33.2 % Red Cell Distribution Width 14.5 % Platelet Count 215 TH/MM3 Mean Platelet Volume 9.3 FL Neutrophils (%) (Auto) 67.8 % Lymphocytes (%) (Auto) 17.9 % Monocytes (%) (Auto) 9.1 % Eosinophils (%) (Auto) 4.2 % Basophils (%) (Auto) 1.0 % Neutrophils # (Auto) 5.9 TH/MM3 Lymphocytes # (Auto) 1.6 TH/MM3 Monocytes # (Auto) 0.8 TH/MM3 Eosinophils # (Auto) 0.4 TH/MM3 Basophils # (Auto) 0.1 TH/MM3 CBC Comment DIFF FINAL Differential Comment Prothrombin Time 11.5 SEC Prothromb Time International Ratio 1.1 RATIO Activated Partial Thromboplast Time 27.1 SEC Blood Urea Nitrogen 17 MG/DL Creatinine 1.90 MG/DL Random Glucose 103 MG/DL Total Protein 7.5 GM/DL Albumin 3.7 GM/DL Calcium Level 9.3 MG/DL Magnesium Level 1.8 MG/DL Alkaline Phosphatase 100 U/L Aspartate Amino Transf (AST/SGOT) 23 U/L Alanine Aminotransferase (ALT/SGPT) 23 U/L Total Bilirubin 0.6 MG/DL Sodium Level 137 MEQ/L Potassium Level 4.0 MEQ/L Chloride Level 104 MEQ/L Carbon Dioxide Level 21.6 MEQ/L Anion Gap 11 MEQ/L Estimat Glomerular Filtration Rate 26 ML/MIN Total Creatine Kinase 97 U/L Troponin I LESS THAN 0.02 NG/ML B-Type Natriuretic Peptide 699 PG/ML Lipase 73 U/L MDM Medical Decision Making Medical Screen Exam Complete: Yes Emergency Medical Condition: Yes Medical Record Reviewed: Yes Interpretation(s) EKG showed atrial fibrillation in RVR HR of 130s Troponin and CK-MB negative. CBC & BMP Diagram 09/09/17 13:00 Total Protein 7.5, Albumin 3.7, Calcium Level 9.3, Magnesium Level 1.8, Alkaline Phosphatase 100, Aspartate Amino Transf (AST/SGOT) 23, Alanine Aminotransferase (ALT/SGPT) 23, Total Bilirubin 0.6 Last Impressions Chest X-Ray 09/09/17 1300 Signed Impressions: Service Date/Time: Saturday, September 09, 2017 13:09 - CONCLUSION: No acute disease. Mat Franz MD FACR BNP in the 600s Differential Diagnosis Atrial fibrillation versus atrial fibrillation RVR versus COPD versus ACS Narrative Course 71-year-old female that presents to the ED for evaluation of shortness of breath and elevated heart rate. Patient was properly examined and was found to have signs and symptoms very consistent with appears to be atrial fibrillation with RVR. Unfortunately we have no Cardizem in the ED IV so patient was given metoprolol IV to help with a heart rate after discussing the case with my attending Dr. Shaikh. However he was initially in the 160s 140s and they came down to the 130s 110s. Her blood pressure became down a little bit as well from 130 systolic to 100 systolic. Patient still symptomatic. Patient still in A. fib RVR. Labs and imaging were essentially unremarkable otherwise. Recommendation is transfer admission for further eval and treatment of the A. fib and RVR. Case discussed with my attending Dr. Shaikh who agrees with admission plan. Case discussed with Dr. Madden who recommends at this time stopping the amlodipine and starting patient on p.o. Cardizem to help with the rate. Dr. Harding for the residents agreed to admission to the resident team. Diagnosis Primary Impression: Atrial fibrillation with RVR Admitting Information Admitting Physician Requests: Admit Reynaldo Mckeon September 09, 2017 14:53
[2017-09-09] MEDS ORDERED: BISACODYL 10 MG SUPP RECTAL PRN (15:00)
[2017-09-09] MEDS ORDERED: ONDANSETRON HCL 4 MG/2 ML VIAL IVP PRN (15:00)
[2017-09-09] MEDS ORDERED: LACTULOSE SYRUP 20 GM/30 ML CUP PO PRN (15:00)
[2017-09-09] MEDS ORDERED: SENNOSIDES 8.6 MG TAB PO PRN (15:00)
[2017-09-09] MEDS ORDERED: NALOXONE HCL 0.4 MG/ML AMP IV PUSH PRN (15:00)
[2017-09-09] MEDS ORDERED: ACETAMINOPHEN 325 MG TAB PO PRN (15:00)
[2017-09-09] MEDS ORDERED: MAGNESIUM HYDROXIDE SUSP 30 ML CUP PO PRN (15:00)
[2017-09-09] MEDS ORDERED: SODIUM CHLORIDE 0.9% FLUSH 10 ML FLUSH IV FLUSH PRN (15:00)
[2017-09-09] MEDS: DILTIAZEM HCL 60 MG TAB PO SCH ×2 (15:29→21:39)
[2017-09-09] MEDS ORDERED: RESP: ALBUTEROL 2.5 MG/IPRATROPIUM 0.5 MG NEB (PRN) NEB (15:30)
[2017-09-09] MEDS ORDERED: GLUCAGON 1 MG/ML VIAL OTHER PRN (16:00)
[2017-09-09] MEDS ORDERED: DEXTROSE 50% IN WATER 50 ML VIAL(D50) IV PUSH PRN (16:00)
[2017-09-09] MEDS ORDERED: DIGOXIN 0.5 MG/2 ML VIAL IV PUSH ONE (17:00)
--- NOTE | 2017-09-09 17:20 | MB ---
cc: Kosta Augustine MD, Beth A MD DATE: 09/09/2017 REASON FOR CONSULTATION: Atrial fibrillation with a rapid ventricular response. HISTORY OF PRESENT ILLNESS: The patient is a 71-year-old white female, followed in our office by Dr. Sabi Madden, with a history of multiple medical problems including paroxysmal atrial fibrillation, coronary artery disease, diabetes, COPD, hypertension, peripheral vascular disease, and chronic renal insufficiency, who presented to the hospital with fairly severe dyspnea on exertion as well as rapid palpitations. Since she was discharged from the hospital about a month ago, she has noticed progressively worsening shortness of breath. In the last few days, she has also noticed rapid palpitations, most notably today. At times, she has felt mildly lightheaded without syncope or near syncope. She denies pedal edema, paroxysmal nocturnal dyspnea, but has had to sleep in a recliner at night. She reports compliance with her medications. Since coming in to the hospital, her dyspnea has considerably improved. The patient also denies cough, fever, hemoptysis, pleurisy, and angina. PAST MEDICAL HISTORY: 1. Paroxysmal atrial fibrillation diagnosed 07/30/2017. 2. Coronary artery disease, status post 3-vessel bypass surgery 2005 and subsequent stent of the vein graft to the right coronary artery. Her last heart catheterization was by Dr. Marco Vaca 08/05/2017 showing 99% ostial left main, 20% proximal LAD, 40% mid LAD, 90% mid LAD, 60% proximal left circumflex, totally occluded proximal right coronary, patent left internal mammary artery to the LAD, 30% mid lesion in the vein graft to the posterior descending artery, subtotally occluded vein graft to the left circumflex with sequential 99% lesions. She subsequently underwent a complex rotational atherectomy of the left main and stenting of the left circumflex/left main using two 2.75 mm Resolute [place] stents as well as a 3.5 mm Resolute [place] stent. 3. Diabetes. 4. Chronic obstructive pulmonary disease. 5. Hypertension. 6. Hyperlipidemia. 7. Mild ischemic cardiomyopathy with ejection fraction 45-50% by echo 08/11/2017. 8. Peripheral vascular disease with history of bilateral lower extremity vascular stents, as well as reported stenting of the aorta. It is unclear whether this was for an abdominal aortic aneurysm. 9. Chronic renal insufficiency. MEDICATIONS: Her cardiac medications at home were reviewed, as they are all in a grocery bag. They include: 1. Clopidogrel 75 mg daily. 2. Lisinopril 10 mg daily. 3. Amlodipine 5 mg daily. 4. Atorvastatin 40 mg at bedtime. 5. Isosorbide mononitrate 30 mg daily. 6. Metoprolol 25 mg b.i.d. 7. Furosemide 20 mg daily. ALLERGIES: NO KNOWN DRUG ALLERGIES. FAMILY HISTORY: Noncontributory. SOCIAL HISTORY: The patient smokes about 2-3 cigarettes a day. She denies alcohol abuse. REVIEW OF SYSTEMS: As any history of present illness, otherwise negative or noncontributory. She also denies headache, visual changes, unilateral weakness or numbness, abdominal pain, melena, dyspepsia, or bright red blood per rectum. PHYSICAL EXAMINATION: VITAL SIGNS: Her blood pressure 110/54 with a pulse of 120, respirations 22. GENERAL: She is a well-developed, well-nourished white female, in no acute distress. NECK: Jugular venous pressure is normal. Carotid pulses are 2+ bilaterally and without bruits. CHEST: Examination reveals clear lung valle. HEART: She has a tachycardic irregular rhythm with a grade II/ mid to late systolic murmur at the apex. No definite gallop is audible. ABDOMEN: She has a soft, obese, nontender abdomen. Bowel sounds are present. There is no definite hepatosplenomegaly. EXTREMITIES: Reveals no clubbing, cyanosis or edema. DIAGNOSTIC STUDIES: EKG shows atrial fibrillation, nonspecific ST and T-wave abnormalities. LABORATORY DATA: Includes BUN 17, creatinine 1.90. CK 97, troponin less than 0.02. Potassium 4.0. WBC 8.8, hemoglobin 11.4, platelets 215. IMAGING STUDIES: Chest x-ray shows no acute disease. IMPRESSION: Increased shortness of breath, elevated heart rates in this 71-year-old white female with history of paroxysmal atrial fibrillation diagnosed 07/30/2017, history of coronary artery disease, status post fairly recent stenting of the left main and left circumflex by Dr. Marco Vaca, diabetes, chronic obstructive pulmonary disease, chronic renal insufficiency, peripheral vascular disease, ejection fraction 45-50%. At this time, her heart rates continue to be mildly elevated. There is no definite evidence for acute coronary syndrome or pulmonary embolism. Her medication list at the present time in comparison to what she was discharged home on last admission is very confusing. For some reason she is no longer taking Brilinta, but rather Plavix. For some reason she is no longer on aspirin. In addition, it appears she was discharged on Eliquis 2.5 mg b.i.d., which she is also not taking. In addition, amlodipine was stopped last admission in favor of Cardizem, which she has not been taking. Her metoprolol dose was supposed to be 50 mg b.i.d. and she has been taking only half of this dosage. Indeed, her thromboembolic risk with the atrial fibrillation is high. RECOMMENDATIONS: 1) Sort out all her medications. At this point, would continue the Plavix and resume daily baby aspirin, stop her lisinopril given her renal insufficiency, stop amlodipine in favor of Cardizem, resume Eliquis 2.5 mg b.i.d., resume the higher dosing of metoprolol 50 mg b.i.d. MD ANIRUDH Moreira/KD , 04:56 PM , 05:19 PM MTDD
[2017-09-09 17:51] VITALS: BP 102/56; PULSE 90; RESP 19; O2SAT 94
[2017-09-09] MEDS ORDERED: HEPARIN SODIUM - SQ 10,000 UNITS/ML VIAL SQ SCH (18:00)
[2017-09-09] MEDS: INSULIN ASPART SUPPLEMENTAL SCALE SQ SCH ×2 (18:31→21:00)
[2017-09-09 18:35] VITALS: BP 115/65; PULSE 77; RESP 20; O2SAT 97
[2017-09-09] MEDS ORDERED: ENOXAPARIN SODIUM 80 MG/0.8 ML SYRINGE SQ SCH (20:00)
[2017-09-09] MEDS ORDERED: ATORVASTATIN 40 MG TAB PO SCH (21:00)
[2017-09-09 21:17] VITALS: BP 119/90; PULSE 78; RESP 16; TEMP 97.5; O2SAT 95
[2017-09-09] MEDS: APIXABAN 2.5 MG TABLET PO SCH (21:39)
[2017-09-09] MEDS: DOCUSATE SODIUM 50 MG/SENNA 8.6 MG TAB PO SCH (21:39)
[2017-09-09] MEDS: SODIUM CHLORIDE 0.9% FLUSH 10 ML FLUSH IV FLUSH SCH (21:40)
[2017-09-09] MEDS: METOPROLOL TARTRATE 50 MG TAB PO SCH (21:40)
[2017-09-10] VITALS (17 sets, daily range): BP systolic 100–121; BP diastolic 55–82; PULSE 50–90; RESP 18–20; TEMP 97.5–98.2; O2SAT 93–97
[2017-09-10] MEDS ORDERED: ISOSORBIDE MONONITRATE 30 MG CR TAB (IMDUR) PO SCH (07:00)
--- NOTE | 2017-09-10 07:39 | PD.CARD.PN ---
Subjective Subjective Remarks Feeling "much better". Denies palpitations, CP, dyspnea, dizziness. Slept fairly well. Objective Medications Item Value Date Time Clopidogrel 75 mg 09/10/17 0900 Bisulfate DAILY/PO (Plavix) Furosemide 20 mg 09/10/17 0900 (Lasix) DAILY/PO Aspirin 81 mg 09/10/17 0900 (Ecotrin Ec) DAILY/PO Isosorbide 30 mg 09/10/17 0700 Mononitrate DAILY@07/PO (Imdur) Atorvastatin 40 mg 09/09/17 2100 Calcium HS/PO 09/09/172139 (Lipitor) Metoprolol 50 mg 09/09/17 2100 Tartrate Q12HR/PO 09/09/17 214 (Lopressor) Apixaban 2.5 mg 09/09/172099 (Eliquis) BID/PO 09/09/172138 Diltiazem HCl 60 mg 09/09/17 1600 (Cardizem) QID/PO 09/09/172138 Current Medications Medications (Trade) Dose Ordered Sig/Hilda Route Start Time Stop Time Status Last Admin (Proair Hfa Inh) 2 puff Q4H PRN INH 09/09/17 14:45 (Lipitor) 40 mg HS PO 09/09/17 21:00 09/09/17 21:40 (Plavix) 75 mg DAILY PO 09/10/17 09:00 (Lasix) 20 mg DAILY PO 09/10/17 09:00 ([place] 5-325 Mg) 1 tab Q6H PRN PO 09/09/17 14:45 (Imdur) 30 mg DAILY@07 PO 09/10/17 07:00 (Lopressor) 50 mg Q12HR PO 09/09/17 21:00 09/09/17 21:40 (Lyrica) 150 mg DAILY PO 09/10/17 09:00 (Symbicort 160-4.5 Mcg Inh) 2 puff BID INH 09/09/17 21:00 09/09/17 00:00 (Duoneb Neb) 1 ampule Q6HR NEB PRN NEB 09/09/17 15:30 (NS Flush) 2 ml UNSCH PRN IV FLUSH 09/09/17 15:00 (NS Flush) 2 ml BID IV FLUSH 09/09/17 21:00 09/09/17 21:40 (Tylenol) 650 mg Q4H PRN PO 09/09/17 15:00 (Zofran Inj) 4 mg Q6H PRN IVP 09/09/17 15:00 (Narcan Inj) 0.4 mg UNSCH PRN IV PUSH 09/09/17 15:00 (Neyda-Colace) 1 tab BID PO 09/09/17 21:00 09/09/17 21:39 (Milk Of Magnesia Liq) 30 ml Q12H PRN PO 09/09/17 15:00 (Senokot) 17.2 mg Q12H PRN PO 09/09/17 15:00 (Dulcolax Supp) 10 mg DAILY PRN RECTAL 09/09/17 15:00 (Lactulose Liq) 30 ml DAILY PRN PO 09/09/17 15:00 (Cardizem) 60 mg QID PO 09/09/17 16:00 09/09/17 21:39 (D50w (Vial) Inj) 50 ml UNSCH PRN IV PUSH 09/09/17 16:00 (Glucagon Inj) 1 mg UNSCH PRN OTHER 09/09/17 16:00 (NovoLOG SUPPLEMENTAL SCALE) 1 ACHS SLIDING SCALE SQ 09/09/17 17:00 (Ecotrin Ec) 81 mg DAILY PO 09/10/17 09:00 (Eliquis) 2.5 mg BID PO 09/09/17 21:00 09/09/17 21:39 Vital Signs / I&O Vital Signs Date Time Temp Pulse Resp B/P (MAP) Pulse Ox O2 Delivery O2 Flow Rate FiO2 09/10/17 05:00 98.2 68 18 119/70 (86) 96 09/10/17 04:30 60 09/10/17 00:00 77 09/09/17 21:17 97.5 78 16 119/90 (100) 95 09/09/17 20:15 09/09/17 18:35 77 20 115/65 (82) 97 Nasal Cannula 2.00 09/09/17 17:51 90 19 102/56 (71) 94 Nasal Cannula 2.00 09/09/17 13:09 120 22 110/54 (72) 98 Nasal Cannula 2.00 09/09/17 12:55 97 Nasal Cannula 2.00 09/09/17 12:55 97 Nasal Cannula 2.00 09/09/17 12:55 98.4 142 22 129/82 (98) 93 09/09/17 12:55 135 24 93 Room Air I/O 09/09/17 09/09/17 09/09/17 09/10/17 09/10/17 09/10/17 07:00 15:00 23:00 07:00 15:00 23:00 Intake Total 240 ml Output Total 900 ml Balance -660 ml Intake Oral 240 ml Output Urine Total 900 ml Physical Exam GENERAL: Well developed, well nourished. No acute distress. HEENT: Jugular venous pressure is normal. CHEST: Lungs clear to auscultation bilaterally. Unlabored respiratory effort. CARDIAC: Irregular rate and rhythm without S3, S4. I/ systolic murmur apex. ABDOMEN: Soft, nontender, no hepatosplenomegaly. Bowel sounds present. EXTREMITIES: No clubbing, cyanosis, or edema. Laboratory Laboratory Tests Test 09/09/17 13:00 09/09/17 18:30 09/10/17 00:28 White Blood Count 8.8 TH/MM3 Red Blood Count 3.63 MIL/MM3 Hemoglobin 11.4 GM/DL Hematocrit 34.3 % Mean Corpuscular Volume 94.7 FL Mean Corpuscular Hemoglobin 31.4 PG Mean Corpuscular Hemoglobin Concent 33.2 % Red Cell Distribution Width 14.5 % Platelet Count 215 TH/MM3 Mean Platelet Volume 9.3 FL Neutrophils (%) (Auto) 67.8 % Lymphocytes (%) (Auto) 17.9 % Monocytes (%) (Auto) 9.1 % Eosinophils (%) (Auto) 4.2 % Basophils (%) (Auto) 1.0 % Neutrophils # (Auto) 5.9 TH/MM3 Lymphocytes # (Auto) 1.6 TH/MM3 Monocytes # (Auto) 0.8 TH/MM3 Eosinophils # (Auto) 0.4 TH/MM3 Basophils # (Auto) 0.1 TH/MM3 CBC Comment DIFF FINAL Differential Comment Prothrombin Time 11.5 SEC Prothromb Time International Ratio 1.1 RATIO Activated Partial Thromboplast Time 27.1 SEC Blood Urea Nitrogen 17 MG/DL Creatinine 1.90 MG/DL Random Glucose 103 MG/DL Total Protein 7.5 GM/DL Albumin 3.7 GM/DL Calcium Level 9.3 MG/DL Magnesium Level 1.8 MG/DL Alkaline Phosphatase 100 U/L Aspartate Amino Transf (AST/SGOT) 23 U/L Alanine Aminotransferase (ALT/SGPT) 23 U/L Total Bilirubin 0.6 MG/DL Sodium Level 137 MEQ/L Potassium Level 4.0 MEQ/L Chloride Level 104 MEQ/L Carbon Dioxide Level 21.6 MEQ/L Anion Gap 11 MEQ/L Estimat Glomerular Filtration Rate 26 ML/MIN Total Creatine Kinase 97 U/L Troponin I LESS THAN 0.02 NG/ML 0.02 NG/ML LESS THAN 0.02 NG/ML B-Type Natriuretic Peptide 699 PG/ML Lipase 73 U/L Imaging Last 24 hours Impressions Chest X-Ray 09/09/17 1300 Signed Impressions: Service Date/Time: Saturday, September 09, 2017 13:09 - CONCLUSION: No acute disease. Mat Franz MD FACR Assessment and Plan Problem List: (1) Paroxysmal atrial fibrillation ICD Codes: I48.0 - Paroxysmal atrial fibrillation Status: Acute Plan: Remains in atrial fibrillation. HR's much better on current medical regimen. Back on Eliquis 2.5 mg bid. REC OK to discharge home today from cardiac standpoint on current medications except change diltiazem to long acting form; she needs concise list of what medications she should be taking she has f/u with Dr. Madden later this month (2) CAD (coronary artery disease) ICD Codes: I25.10 - Atherosclerotic heart disease of [place] coronary artery without angina pectoris Status: Chronic Plan: CAD status stable s/p recent complex PCI of left main and left circumflex. No recurrent angina. Negative cardiac enzymes. Continue Plavix and baby aspirin. (3) Hypertension ICD Codes: I10 - Essential (primary) hypertension Status: Chronic Plan: Stable. Normotensive. Code Status full code Discussed Condition With patient Problem Qualifiers (1) CAD (coronary artery disease): Qualified Codes: I25.10 - Atherosclerotic heart disease of [place] coronary artery without angina pectoris (2) Hypertension: Qualified Codes: I10 - Essential (primary) hypertension Kosta Augustine MD September 10, 2017 07:38
[2017-09-10] MEDS: INSULIN ASPART SUPPLEMENTAL SCALE SQ SCH ×2 (08:00→12:00)
[2017-09-10] MEDS: APIXABAN 2.5 MG TABLET PO SCH (08:11)
[2017-09-10] MEDS: BUDESONIDE-FORMOTEROL 160/4.5 MCG INHALER INH SCH (08:12)
[2017-09-10] MEDS: SODIUM CHLORIDE 0.9% FLUSH 10 ML FLUSH IV FLUSH SCH (08:12)
[2017-09-10] MEDS: DOCUSATE SODIUM 50 MG/SENNA 8.6 MG TAB PO SCH (08:13)
[2017-09-10] MEDS: METOPROLOL TARTRATE 50 MG TAB PO SCH (08:13)
[2017-09-10 08:17] LABS: CALCIUM 9.3 MG/DL (8.5-10.1); CREATININE 1.65 MG/DL (0.50-1.00)
[2017-09-10] MEDS ORDERED: LISINOPRIL 10 MG TAB PO SCH (09:00)
[2017-09-10] MEDS ORDERED: FUROSEMIDE 20 MG TAB PO SCH (09:00)
[2017-09-10] MEDS ORDERED: DILTIAZEM-CD 240 MG CAP ER PO SCH (09:00)
[2017-09-10] MEDS ORDERED: ASPIRIN EC 81 MG TABEC PO SCH (09:00)
[2017-09-10] MEDS ORDERED: CLOPIDOGREL 75 MG TAB PO SCH (09:00)
[2017-09-10] MEDS ORDERED: PREGABALIN 75 MG CAP PO SCH (09:00)
--- NOTE | 2017-09-10 11:12 | HHI.FPPN ---
Subjective Remarks No acute events overnight. Patient feeling much better this morning. No chest pain, dizziness, palpitations. (Agustin King MD R1) Objective Vitals Vital Signs Date Time Temp Pulse Resp B/P (MAP) Pulse Ox O2 Delivery O2 Flow Rate FiO2 09/10/17 08:15 97.5 71 20 121/82 (95) 95 09/10/17 05:00 98.2 68 18 119/70 (86) 96 09/10/17 04:30 60 09/10/17 00:00 77 09/09/17 21:17 97.5 78 16 119/90 (100) 95 09/09/17 20:15 09/09/17 18:35 77 20 115/65 (82) 97 Nasal Cannula 2.00 09/09/17 17:51 90 19 102/56 (71) 94 Nasal Cannula 2.00 09/09/17 13:09 120 22 110/54 (72) 98 Nasal Cannula 2.00 09/09/17 12:55 97 Nasal Cannula 2.00 09/09/17 12:55 97 Nasal Cannula 2.00 09/09/17 12:55 98.4 142 22 129/82 (98) 93 09/09/17 12:55 135 24 93 Room Air I/O 09/09/17 09/09/17 09/09/17 09/10/17 09/10/17 09/10/17 07:00 15:00 23:00 07:00 15:00 23:00 Intake Total 240 ml Output Total 900 ml Balance -660 ml Intake Oral 240 ml Output Urine Total 900 ml (Agustin King MD R1) Result Diagram: 09/09/17 1300 09/10/17 0653 Objective Remarks GENERAL: This is a well-nourished, well-developed patient, in no apparent distress. SKIN: Cool and dry. CARDIOVASCULAR: Normal rate and irregular rhythm without murmurs, gallops, or rubs. RESPIRATORY: Clear to auscultation bilaterally. GASTROINTESTINAL: Abdomen soft, non-tender, nondistended. No hepato-splenomegaly , or palpable masses. No guarding. MUSCULOSKELETAL: Extremities without clubbing, cyanosis, or edema. No joint tenderness, effusion. No calf tenderness. NEUROLOGICAL: Awake and alert. Normal speech. (Agustin King MD R1) A/P Assessment and Plan 71-year-old female with extensive cardiac history presents with atrial fibrillation RVR. Given 5 mg IV metoprolol in the emergency room, will continue with Cardizem 60 mg p.o. 4 times daily and cardiology consult. Rate controlled on Cardizem and cardiology cleared for discharge on 09/10 Discharge Planning Discharge today (Agustin King MD R1) Problem List: (1) Atrial fibrillation with RVR ICD Codes: I48.91 - Unspecified atrial fibrillation Status: Acute Plan: Per HPI, likely patient has been in RVR for multiple days Admitted to [facility]U Cardiology, Dr. Madden, consulted Repeat ECHO pending Given 5 mg IV metoprolol in the emergency room Per cardiology, continue Cardizem p.o. 60 mg 4 times daily -rate well controlled on this medication and will switch to long-acting Cardizem on discharge Continue metoprolol 50 mg twice daily Anticoagulation as below and per cardiology recommendations -starting Eliquis along with home medications (2) CAD (coronary artery disease) ICD Codes: I25.10 - Atherosclerotic heart disease of [place] coronary artery without angina pectoris Status: Chronic Plan: History of triple bypass and recently 2 stents placed in August Continues to smoke Follows with cardiology Continue Plavix, atorvastatin, lisinopril Smoking abuse counseling provided (3) CHF (congestive heart failure) ICD Codes: I50.9 - Heart failure, unspecified Status: Chronic Plan: Echo 08/2017-ejection fraction 45-50% Continue metoprolol, lisinopril, Lasix Cardiology consulted (4) COPD (chronic obstructive pulmonary disease) ICD Codes: J44.9 - Chronic obstructive pulmonary disease, unspecified Status: Chronic Plan: Patient needs to quit smoking Counseling provided Continue inhalers while inpatient Patient is requesting oxygen, may need an oxygen walk test prior to discharge Oxygen as needed to keep sats greater than 92% while inpatient (5) Diabetes ICD Codes: E11.9 - Type 2 diabetes mellitus without complications Plan: Continue medical management as above On metformin as an outpatient, will hold while inpatient; Sliding scale insulin while inpatient (6) Hypertension ICD Codes: I10 - Essential (primary) hypertension Status: Chronic Plan: Continue medications as above (7) Chronic kidney disease (CKD) ICD Codes: N18.9 - Chronic kidney disease, unspecified Plan: Avoid nephrotoxins May need to change metformin as an outpatient given low GFR (8) Nutrition, metabolism, and development symptoms ICD Codes: R63.8 - Other symptoms and signs concerning food and fluid intake Status: Acute Plan: Fluids: Tolerating p.o. Electrolytes: Monitor and replace as needed Nutrition: Heart healthy diet Prophylaxis: Heparin 3 times daily (Agustin King MD R1) Problem List: (1) Atrial fibrillation with RVR ICD Codes: I48.91 - Unspecified atrial fibrillation Status: Acute Plan: Per HPI, likely patient has been in RVR for multiple days Admitted to CCU Cardiology, Dr. Madden, consulted Repeat ECHO pending Given 5 mg IV metoprolol in the emergency room Per cardiology, continue Cardizem p.o. 60 mg 4 times daily -rate well controlled on this medication and will switch to long-acting Cardizem on discharge Continue metoprolol 50 mg twice daily Anticoagulation as below and per cardiology recommendations -starting Eliquis along with home medications (2) CAD (coronary artery disease) ICD Codes: I25.10 - Atherosclerotic heart disease of [place] coronary artery without angina pectoris Status: Chronic Plan: History of triple bypass and recently 2 stents placed in August Continues to smoke Follows with cardiology Continue Plavix, atorvastatin, lisinopril Smoking abuse counseling provided (3) CHF (congestive heart failure) ICD Codes: I50.9 - Heart failure, unspecified Status: Chronic Plan: Echo 08/2017-ejection fraction 45-50% Continue metoprolol, lisinopril, Lasix Cardiology consulted (4) COPD (chronic obstructive pulmonary disease) ICD Codes: J44.9 - Chronic obstructive pulmonary disease, unspecified Status: Chronic Plan: Patient needs to quit smoking Counseling provided Continue inhalers while inpatient Patient is requesting oxygen, may need an oxygen walk test prior to discharge Oxygen as needed to keep sats greater than 92% while inpatient (5) Diabetes ICD Codes: E11.9 - Type 2 diabetes mellitus without complications Plan: Continue medical management as above On metformin as an outpatient, will hold while inpatient; Sliding scale insulin while inpatient (6) Hypertension ICD Codes: I10 - Essential (primary) hypertension Status: Chronic Plan: Continue medications as above (7) Chronic kidney disease (CKD) ICD Codes: N18.9 - Chronic kidney disease, unspecified Plan: Avoid nephrotoxins May need to change metformin as an outpatient given low GFR (8) Nutrition, metabolism, and development symptoms ICD Codes: R63.8 - Other symptoms and signs concerning food and fluid intake Status: Acute Plan: Fluids: Tolerating p.o. Electrolytes: Monitor and replace as needed Nutrition: Heart healthy diet Prophylaxis: Heparin 3 times daily See the residents documentation for details. I saw and evaluated the patient regarding the guadalupe portions of this evaluation and agree with the residents findings and plans as written. Parts of this note were created using [employer] voice recognition software program. While efforts were made to correct any mistakes made by this software, some mistakes, errors, and omissions may remain in the final note that were not caught when the note was originally created. Plan of care was discussed and agreed upon with the patient as specifically documented in the above note. An opportunity to ask questions with explanation was provided. Patient voiced understanding on all information reviewed and discussed. (Adi Paz MD) Problem Qualifiers (1) CAD (coronary artery disease): Qualified Codes: I25.10 - Atherosclerotic heart disease of [place] coronary artery without angina pectoris (2) CHF (congestive heart failure): Qualified Codes: I50.9 - Heart failure, unspecified (3) COPD (chronic obstructive pulmonary disease): Qualified Codes: J44.9 - Chronic obstructive pulmonary disease, unspecified (4) Diabetes: Qualified Codes: E11.8 - Type 2 diabetes mellitus with unspecified complications (5) Hypertension: Qualified Codes: I10 - Essential (primary) hypertension (6) Chronic kidney disease (CKD): Qualified Codes: N18.3 - Chronic kidney disease, stage 3 (moderate) Agustin King MD R1 September 10, 2017 11:12 Adi Paz MD September 10, 2017 14:49
[2017-09-10] MEDS ORDERED: DILT240C44 PO (11:18)
[2017-09-10] MEDS ORDERED: APIX2.5T PO (11:19)
--- NOTE | 2017-09-10 11:21 | HHI.DCPOC ---
Discharge Care Plan Diagnosis: (1) Atrial fibrillation with RVR (2) CAD (coronary artery disease) (3) CHF (congestive heart failure) (4) Chronic kidney disease (CKD) (5) Diabetes Goals to Promote Your Health * To prevent worsening of your condition and complications * To maintain your health at the optimal level Directions to Meet Your Goals Take your medications as prescribed Follow your dietary instruction Follow activity as directed Keep your appointments as scheduled Take your immunizations and boosters as scheduled If your symptoms worsen call your PCP, if no PCP go to Urgent Care Center or Emergency Room Smoking is Dangerous to Your Health. Avoid second hand smoke Call the 24-hour hour crisis hotline for domestic abuse at Agustin King MD R1 September 10, 2017 11:21
[2017-09-10] MEDS ORDERED: OXYGENTANK NAS.CANULA (13:39)
--- NOTE | 2017-09-10 18:48 | ECHRPT ---
Indication: EF assessment of CHF CONCLUSIONS Mildly dilated left ventricle. Wall thickness is normal. The left ventricular systolic function is jccupdws-et-sowfzew reduced with an estimated ejection fra ction in the range of 35-40%. There is global left ventricular dysfunction. The left atrial size is bxcvxvpu-fd-ecqcsgvq dilated. The right atrial size is moderately dilated. Mild thickening of the mitral valve leaflets. severe mitral valve regurgitation. Aortic valve sclerosis is present. Mild aortic valve regurgitation. There is moderate tricuspid regurgitation. The estimated pulmonary arterial pressure is 44.3 mmHg. possible mild mitral valve stenosis peak gradient=9 mm hg BP: / HR: Rhythm: Atrial fibrillation, Atrial flut ter MEASUREMENTS (Male / Female) Normal Values Technical Quality:Fair 2D ECHO LV Diastolic Diameter PLAX 6.1 cm 4.2 - 5.9 / 3.9 - 5.3 cm LV Systolic Diameter PLAX 5.1 cm IVS Diastolic Thickness 0.9 cm 0.6 - 1.0 / 0.6 - 0.9 cm LVPW Diastolic Thickness 0.9 cm 0.6 - 1.0 / 0.6 - 0.9 cm LV Relative Wall Thickness 0.3 RV Internal Dim ED PLAX 2.7 cm LVOT Diameter 2.3 cm Aortic Root Diameter 2.9 cm LA Systolic Diameter LX 4.7 cm 3.0 - 4.0 / 2.7 - 3.8 cm M-MODE AV Cusp Separation MM 1.3 cm DOPPLER AV Peak Velocity 191.5 cm/s AV Peak Gradient 14.7 mmHg AV Mean Gradient 8.5 mmHg AV Velocity Time Integral 34.4 cm LVOT Peak Velocity 45.0 cm/s LVOT Peak Gradient 0.8 mmHg LVOT Velocity Time Integral 9.5 cm AV Area Cont Eq vti 1.1 cm AV Area Cont Eq pk 1.0 cm Mitral E Point Velocity 147.5 cm/s LV E' Lateral Velocity 13.3 cm/s Mitral E to LV E' Lateral Ratio 11.1 LV E' Septal Velocity 7.1 cm/s Mitral E to LV E' Septal Ratio 20.7 TR Peak Velocity 293.0 cm/s TR Peak Gradient 34.3 mmHg Right Atrial Pressure 10.0 mmHg Pulmonary Artery Systolic Pressu 44.3 mmHg Right Ventricular Systolic Press 44.3 mmHg PV Peak Velocity 57.3 cm/s PV Peak Gradient 1.3 mmHg FINDINGS LEFT VENTRICLE Mildly dilated left ventricle. Wall thickness is normal. The left ventricular systolic function is eyaidwij-gh-guzatjw reduced with an estimated ejection fra ction in the range of 35-40%. There is global left ventricular dysfunction. RIGHT VENTRICLE Normal right ventricular size and systolic function. LEFT ATRIUM The left atrial size is chxzuvjh-wj-qvlxympy dilated. RIGHT ATRIUM The right atrial size is moderately dilated. ATRIAL SEPTUM No atrial level shunt is demonstrated by color flow Doppler interrogation. AORTA The aortic root and proximal ascending aorta are not well visualized. MITRAL VALVE Mild thickening of the mitral valve leaflets. Yyutjweq-rc-eocclr mitral valve regurgitation. AORTIC VALVE Aortic valve sclerosis is present. Mild aortic valve regurgitation. TRICUSPID VALVE There is moderate tricuspid regurgitation. The estimated pulmonary arterial pressure is 44.3 mmHg. PULMONARY VALVE No pulmonary valve regurgitation or stenosis. VESSELS The inferior vena cava is normal in size. PERICARDIUM No pericardial effusion. Jonathan Johnson MD, FACC, [facility] (Electronically Signed) Final Date:10 Sep 2017 18:47
--- NOTE | 2017-09-10 20:35 | EKG ---
Date Performed: 09/09/2017 Time Performed: 12:56:11 PTAGE: 71 years EKG: ATRIAL FIBRILLATION WITH RAPID VENTRICULAR RESPONSE Diffuse ST-T wave abnormalities. Cannot exclude ischemia. The ventricular yrerl6n faster and the ST-T changes are more Prominant when compar ed to previous tracing. ABNORMAL ECG PREVIOUS TRACING : 08/09/2017 18.09 DOCTOR: Marco Vaca Interpretating Date/Time 09/10/2017 20:34:36
--- NOTE | 2017-09-10 20:37 | EKG ---
Date Performed: 09/09/2017 Time Performed: 19:12:00 PTAGE: 71 years EKG: ATRIAL FIBRILLATION WITH SLOW VENTRICULAR RESPONSE NONSPECIFIC ST & T-WAVE ABNORMALITY When compared to previous tracing, the rate is slower and the ST Changes are less prominent. ABNORMAL ECG PREVIOUS TRACING : 09/09/2017 12.56 DOCTOR: Marco Vaca Interpretating Date/Time 09/10/2017 20:35:48
--- NOTE | 2017-09-10 20:38 | EKG ---
Date Performed: 09/10/2017 Time Performed: 00:38:16 PTAGE: 71 years EKG: Atrial fibrillation with controlled ventricular rate. Possible anterior infarct - age undet ermined Inferior/lateral ST-T changes are nonspecific Since previous tracing, no significant change n oted Abnormal ECG PREVIOUS TRACING : 09/09/2017 19.12 DOCTOR: Marco Vaca Interpretating Date/Time 09/10/2017 20:36:45
== END 2017-09-10 16:44 | disposition home or self-care (01) ==
LOC: NEPE 12:42 → NEDA 14:30 → INTOOBSV 14:30 → HCIS 20:16
PROVIDERS: ADMIT Family Medicine; ATTEND Family Medicine
DX: I48.0 Paroxysmal atrial fibrillation (principal); R00.0 Tachycardia, unspecified; R94.31 Abnormal electrocardiogram [ECG] [EKG]; I25.10 Atherosclerotic heart disease of native coronary artery without angina pectoris; I13.0 Hypertensive heart and chronic kidney disease with heart failure and stage 1 through stage 4 chronic kidney disease, or unspecified chronic kidney disease; I50.9 Heart failure, unspecified; N18.3 Chronic kidney disease, stage 3 (moderate); E11.22 Type 2 diabetes mellitus with diabetic chronic kidney disease; I25.5 Ischemic cardiomyopathy; J44.9 Chronic obstructive pulmonary disease, unspecified; E11.51 Type 2 diabetes mellitus with diabetic peripheral angiopathy without gangrene; E78.5 Hyperlipidemia, unspecified; I25.2 Old myocardial infarction; R00.2 Palpitations; M54.5 Low back pain; G89.29 Other chronic pain; F17.210 Nicotine dependence, cigarettes, uncomplicated; Z79.899 Other long term (current) drug therapy; Z79.84 Long term (current) use of oral hypoglycemic drugs; Z95.5 Presence of coronary angioplasty implant and graft
CPT/HCPCS: 71045; 80048; 80053; 82550; 82948; 83690; 83735; 83880; 84484; 85025; 85610; 85730; 93005; 93308; 94618; 97162; 99285; G0378; J1160

== ENCOUNTER 2017-09-24 02:08 | Inpatient (IN) | payer MEDICARE, MEDICAID ==
[2017-09-24] VITALS (25 sets, daily range): BP systolic 105–164; BP diastolic 57–94; PULSE 63–138; RESP 14–28; TEMP 97.5–98.9; O2SAT 96–100
[~2017-09-24] VITALS: Ht 160 cm; Wt 81.9 kg
[~2017-09-24 02:08] MED LIST changes: -ASPI81 PO; +FURO20TA PO; -GABA300C5 PO; +HYDR-3516 PO; -LEVO750T3 PO; +LISI10TA3 PO; +LYRI150C PO; +PLAV75TA29 PO
--- NOTE | 2017-09-24 02:18 | PD ---
HPI . respiratory failure Chief Complaint: Respiratory Distress Time Seen by Provider: 02:16 Travel History International Travel<30 days: No Contact w/Intl Traveler<30days: No Traveled to known affect area: No History of Present Illness HPI Patient is a 72-year-old female who has a shortness of breath and RVR A. fib and then his deteriorating could not breathe a prone CPAP she failed CPAP she got anxious pull that off started to desat to 68 they said if they could intubate her she said yes she agrees to be intubated with 2 of Versed and etomidate and then repeated to Versed again and she comes in intubated satting 100% blood pressure 148/100 heart rate is A. fib at a rate of 170 down to 120 irregularly irregular she is unable to give HPI or ROS due to be intubated and respiratory distress and sedated PFSH Past Medical History Arthritis: Yes Heart Rhythm Problems: Yes (Afib) Cancer: No Cardiovascular Problems: Yes High Cholesterol: Yes Chest Pain: No COPD: Yes Coronary Artery Disease: Yes Diabetes: Yes Patient Takes Glucophage: No (EDGAR) Diminished Hearing: No Gastrointestinal Disorders: Yes GERD: Yes Hypertension: Yes Implanted Vascular Access Dvce: Yes Musculoskeletal: Yes Neurologic: No Psychiatric: No Respiratory: Yes Ulcer: Yes Tetanus Vaccination: Unknown Influenza Vaccination: No Ectopic : Yes Past Surgical History Body Medical Devices: rods, screws, spacers in lumbar spine Cardiac Surgery: Yes (triple bypass) Eye Surgery: Yes (bilat cataract, detached retina 10 years ago.) Hysterectomy: Yes Joint Replacement: Yes (right knee 6 years ago.) Oral Surgery: Yes (Esophagus stretched) Other Surgery: Yes (right knee, karen feet, stents L and R leg AND Aorta, cataracts, detached ret) Social History Alcohol Use: Yes (RARELY) Tobacco Use: Yes Substance Use: No Allergies-Medications (Allergen,Severity, Reaction): Coded Allergies: No Known Allergies (Unverified Allergy, Unknown, 09/24/17) Reported Meds & Prescriptions Reported Meds & Active Scripts Active Oxygen tank (Oxygen) 1 Ea Tank Liter PA.CANULA CONTINUOUS Oxygen Concentrator Portable Gaseous 2 L/min via Nasal Cannula Continuous For 99 months Eliquis (Apixaban) 2.5 Mg Tab 2.5 Mg PO BID Diltiazem CD 24 HR 240 Mg Caper 240 Mg PO DAILY 30 Days Oxygen tank (Oxygen) 1 Ea Tank Liter PA.CANRent Jungle CONTINUOUS Oxygen Concentrator Portable Gaseous 2 L/min via Nasal Cannula Continuous For 99 months Isosorbide Mononitrate ER (Isosorbide Mononitrate) 30 Mg Sagar 30 Mg PO DAILY@ 07 30 Days [Albuterol-Ipratropium Neb] 1 AMPULE Nebu 1 Ampule NEB Q6HR NEB PRN 14 Days Lopressor (Metoprolol Tartrate) 50 Mg Tab 50 Mg PO Q12HR Brilinta (Ticagrelor) 90 Mg Tab 90 Mg PO BID Metformin (Metformin HCl) 500 Mg Tab 500 Mg PO DAILY With a meal Atorvastatin (Atorvastatin Calcium) 40 Mg Tab 40 Mg PO HS Reported Lyrica (Pregabalin) 150 Mg Cap 150 Mg PO DAILY Furosemide 20 Mg Tab 20 Mg PO DAILY Plavix (Clopidogrel Bisulfate) 75 Mg Tab 75 Mg PO DAILY Lisinopril 10 Mg Tab 10 Mg PO DAILY Hydrocodone-Acetaminophen 5-325 mg Tab 1 Tab PO Q6H PRN Advair Diskus Inh (Fluticasone-Salmeterol Inh) 250-50 Mcg/Blist Aer 1 Puff INH BID Rinse mouth after use. Ventolin Hfa 18 GM Inh (Albuterol Sulfate) 90 Mcg/Act Aer 2 Puff INH Q4H PRN Review of Systems ROS Limitations: Intubated, Unresponsive Physical Exam Narrative GENERAL: Patient is intubated sedated with Versed ET tube in place air in the abdomen ET tube is in place by auscultation SKIN: Warm and dry. Diaphoretic HEAD: Atraumatic. Normocephalic. EYES: Pupils equal and round. No scleral icterus. No injection or drainage. ENT: No nasal bleeding or discharge. Mucous membranes pink and moist. NECK: Trachea midline. No JVD. CARDIOVASCULAR: Irregularly irregular rapid heart rate 144 fluctuating down to 120 RESPIRATORY: No accessory muscle use. Clear to auscultation. Breath sounds equal bilaterally. Coarse breath sounds auscultated at the axilla bilaterally right is louder than the left GASTROINTESTINAL: Abdomen soft, non-tender, nondistended. Hepatic and splenic margins not palpable. MUSCULOSKELETAL: Extremities 1+ edema. No obvious deformities. NEUROLOGICAL: Sedated unconscious intubated she is not fighting the tube at this time its. PSYCHIATRIC: Sedated obtunded Data Data Last Documented VS Orders Orders Chest, Single Ap (09/24/17 ) Complete Blood Count With Diff (09/24/17 02:18) Comprehensive Metabolic Panel (09/24/17 02:18) Ckmb (Isoenzyme) Profile (09/24/17 02:18) Troponin I (09/24/17 02:18) Lipase (09/24/17 02:18) Magnesium (Mg) (09/24/17 02:18) Propofol 1000 Mg/100 Ml Inj (Diprivan 10 (09/24/17 02:26) Propofol 1000 Mg/100 Ml Inj (Diprivan 10 (09/24/17 02:30) Fentanyl Drip (Fentanyl Drip) (09/24/17 02:30) Midazolam 100 Mg/100 Ml Inj (Versed Inj) (09/24/17 02:30) Fentanyl Drip (Fentanyl Drip) (09/24/17 02:36) Midazolam 50 Mg/50 Ml Inj (Versed Inj) (09/24/17 02:36) Ceftriaxone Inj (Rocephin Inj) (09/24/17 02:45) B-Type Natriuretic Peptide (09/24/17 02:41) Midazolam 50 Mg/50 Ml Inj (Versed Inj) (09/24/17 03:00) Arterial Blood Gas (Abg) (09/24/17 02:44) C Diff Toxin Pcr (09/24/17 02:59) Urinary Catheter Management DEB.Q8H (09/24/17 02:59) Urinalysis - C+S If Indicated (09/24/17 03:05) Nitroglycerin 2% Oint (Nitroglycerin 2% (09/24/17 03:45) Electrocardiogram (09/24/17 ) Admit Order (Ed Use Only) (09/24/17 04:05) Labs Laboratory Tests Test 09/24/17 02:39 09/24/17 02:44 09/24/17 03:07 White Blood Count 10.1 TH/MM3 Red Blood Count 3.78 MIL/MM3 Hemoglobin 11.6 GM/DL Hematocrit 36.5 % Mean Corpuscular Volume 96.7 FL Mean Corpuscular Hemoglobin 30.6 PG Mean Corpuscular Hemoglobin Concent 31.7 % Red Cell Distribution Width 15.3 % Platelet Count 296 TH/MM3 Mean Platelet Volume 9.2 FL Neutrophils (%) (Auto) 63.8 % Lymphocytes (%) (Auto) 23.0 % Monocytes (%) (Auto) 6.2 % Eosinophils (%) (Auto) 6.4 % Basophils (%) (Auto) 0.6 % Neutrophils # (Auto) 6.5 TH/MM3 Lymphocytes # (Auto) 2.3 TH/MM3 Monocytes # (Auto) 0.6 TH/MM3 Eosinophils # (Auto) 0.6 TH/MM3 Basophils # (Auto) 0.1 TH/MM3 CBC Comment DIFF FINAL Differential Comment Blood Urea Nitrogen 18 MG/DL Creatinine 1.65 MG/DL Random Glucose 182 MG/DL Total Protein 7.7 GM/DL Albumin 3.5 GM/DL Calcium Level 8.3 MG/DL Magnesium Level 2.0 MG/DL Alkaline Phosphatase 136 U/L Aspartate Amino Transf (AST/SGOT) 50 U/L Alanine Aminotransferase (ALT/SGPT) 63 U/L Total Bilirubin 0.5 MG/DL Sodium Level 140 MEQ/L Potassium Level 4.4 MEQ/L Chloride Level 106 MEQ/L Carbon Dioxide Level 24.9 MEQ/L Anion Gap 9 MEQ/L Estimat Glomerular Filtration Rate 30 ML/MIN Total Creatine Kinase 51 U/L Troponin I LESS THAN 0.02 NG/ML B-Type Natriuretic Peptide 692 PG/ML Lipase 93 U/L Blood Gas Puncture Site LT RADIAL Blood Gas Patient Temperature 98.6 Blood Gas HCO3 25 mmol/L Blood Gas Base Excess -1.5 mmol/L Blood Gas Oxygen Saturation 98 % Arterial Blood pH 7.25 Arterial Blood Partial Pressure CO2 59 mmHg Arterial Blood Partial Pressure O2 451 mmHG Arterial Blood Oxygen Content 16.7 Vol % Arterial Blood Carboxyhemoglobin 1.3 % Arterial Blood Methemoglobin 0.7 % Blood Gas Hemoglobin 11.3 G/DL Oxygen Delivery Device VENT Blood Gas Ventilator Setting PRVC/AC Blood Gas Inspired Oxygen 100 % Urine Color YELLOW Urine Turbidity CLEAR Urine pH 5.5 Urine Specific Lee 1.008 Urine Protein TRACE mg/dL Urine Glucose (UA) NEG mg/dL Urine Ketones NEG mg/dL Urine Occult Blood NEG Urine Nitrite NEG Urine Bilirubin NEG Urine Urobilinogen LESS THAN 2.0 MG/DL Urine Leukocyte Esterase NEG Urine WBC LESS THAN 1 /hpf Urine Squamous Epithelial Cells <1 /hpf Urine Bacteria RARE /hpf Urine Hyaline Casts 2 /lpf Microscopic Urinalysis Comment CATH-CULTURE IND Stool C. difficile Toxin (PCR) POSITIVE Stl C. difficile Toxin Epiderm 027 PRESUMPTIVE NEGATIVE MDM Medical Decision Making Medical Screen Exam Complete: Yes Emergency Medical Condition: Yes Medical Record Reviewed: Yes Differential Diagnosis PNA vs CHF vs COPD with CO2 retention vs PTX vs brochitis vs aspiration PNA vs ACS arrhythmia cuasing sudden SOB to failure Narrative Course pt intubated in the field and sedated has CHEST XRAY Appears CHF and possible RLL PNA trated with lasix and antibiotics and admitted to ICU labs reviewed Chest xray reviewed for ET placement and diagnosis Critical Care Narrative 30 mins Diagnosis Primary Impression: Respiratory failure Qualified Codes: J96.00 - Acute respiratory failure, unspecified whether with hypoxia or hypercapnia Additional Impression: CHF (congestive heart failure) Qualified Codes: I50.9 - Heart failure, unspecified Admitting Information Admitting Physician Requests: Gulshan Boss MD September 24, 2017 02:18
[2017-09-24] MEDS ORDERED: PROPOFOL 1000 MG/100 ML BTL IV STA (02:26)
[2017-09-24] MEDS ORDERED: MIDAZOLAM 100 MG/100 ML INJ 100 ML IV PRN (02:30)
[2017-09-24] MEDS ORDERED: fentaNYL DRIP 250 ML IV PRN (02:30)
[2017-09-24] MEDS ORDERED: PROPOFOL 1000 MG/100 ML INJ 100 ML IV PRN (02:30)
[2017-09-24] MEDS ORDERED: MIDAZOLAM 50 MG/50 ML INJ 50 ML IV ONE (02:36)
[2017-09-24] MEDS ORDERED: fentaNYL DRIP 250 ML ONE (02:36)
[2017-09-24] MEDS ORDERED: cefTRIAXone INJ 1,000 MG in SODIUM CHLORIDE 0.9% INJ 100 ML IV ONE (02:45)
--- NOTE | 2017-09-24 02:45 | RADRPT ---
EXAM DATE: 09/24/2017 2:35 AM EDT AGE/SEX: 72 years / Female INDICATIONS: Intubation. Respiratory failure. CLINICAL DATA: This is the patient's initial encounter. Patient reports that signs and symptoms have been present for 1 day and indicates a pain score of Nonresponsive. MEDICAL/SURGICAL HISTORY: Chronic obstructive pulmonary disease. Diabetes mellitus type II. C ongestive heart failure. AAA Coronary artery stent. Abdominal aortic aneurysm repair. CABG. COMPARISON: [facility], CHEST SINGLE AP, 09/09/2017. . FINDINGS: A single AP semierect portable view of the chest was obtained and demonstrates new hazy opacity in th e perihilar regions and both lung bases right greater than left. There is no distinct effusion. The h eart size is mildly enlarged. Endotracheal tube is been placed with the tip approximately 4 cm above the corazon. The patient is again noted to be status post median sternotomy. There are overlying elect rocardiogram leads and oxygen tubing. CONCLUSION: 1. Status post intubation. 2. New bilateral hazy opacity of concern for pulmonary edema. 3. Mild cardiomegaly. Electronically signed by: Corwin Shine MD 09/24/2017 2:44 AM EDT
[2017-09-24] MEDS: MIDAZOLAM 50 MG/NS 50 ML DRIP Premix IV PRN ×2 (02:51→21:15)
[2017-09-24 02:57] LABS: AUTOMATED NEUTROPHIL # 6.5 TH/MM3 (1.8-7.7); BASOPHIL # 0.1 TH/MM3 (0-0.2); BASOPHIL % 0.6 % (0.0-2.0); EOSINOPHIL # 0.6 TH/MM3 (0-0.4); EOSINOPHIL % 6.4 % (0.0-4.0); HEMATOCRIT 36.5 % (35.0-46.0); HEMOGLOBIN 11.6 GM/DL (11.6-15.3); LYMPHOCYTE # 2.3 TH/MM3 (1.0-4.8); MEAN CELL VOLUME 96.7 FL (80.0-100.0); MEAN CORPUSCULAR HEMOGLOBIN 30.6 PG (27.0-34.0); MEAN CORPUSCULAR HGB CONC 31.7 % (32.0-36.0); MEAN PLATELET VOLUME 9.2 FL (7.0-11.0); MONO % 6.2 % (0.0-8.0); MONOCYTE # 0.6 TH/MM3 (0-0.9); NEUT % 63.8 % (16.0-70.0); PLATELET COUNT 296 TH/MM3 (150-450); RED BLOOD COUNT 3.78 MIL/MM3 (4.00-5.30); RED CELL DISTRIBUTION WIDTH 15.3 % (11.6-17.2); WHITE BLOOD COUNT 10.1 TH/MM3 (4.0-11.0)
[2017-09-24 03:18] LABS: ALBUMIN 3.5 GM/DL (3.4-5.0); AST (GOT) 50 U/L (15-37); BICARBONATE 24.9 MEQ/L (21.0-32.0); BLOOD UREA NITROGEN 18 MG/DL (7-18); CALCIUM 8.3 MG/DL (8.5-10.1); CHLORIDE 106 MEQ/L (98-107); CREATININE 1.65 MG/DL (0.50-1.00); GLOMERULAR FILTRATION RATE 30 ML/MIN (>89); GLUCOSE,RANDOM 182 MG/DL (74-106); SODIUM (NA) 140 MEQ/L (136-145)
[2017-09-24 03:23] LABS: ALKALINE PHOSPHATASE 136 U/L (45-117); ALT (GPT) 63 U/L (10-53); TOTAL BILIRUBIN ADULT 0.5 MG/DL (0.2-1.0); TOTAL PROTEIN 7.7 GM/DL (6.4-8.2); TROPONIN I LESS THAN 0.02 NG/ML (0.02-0.05)
[2017-09-24] MEDS ORDERED: NITROGLYCERIN 2% OINT 1 GM PACKET TOPICAL ONE (03:45)
[2017-09-24 04:19] LABS: BACTERIA, URINE RARE /hpf; BILIRUBIN, URINE NEG (NEG); BLOOD, URINE NEG (NEG); GLUCOSE,URINE NEG (NEG); HYALINE CAST, URINE 2 /lpf (RARE); KETONE, URINE NEG (NEG); NITRITE,URINE NEG (NEG); PH, URINE 5.5 (5.0-8.5); SQUAMOUS EPITHELIAL CELL URINE <1 /hpf (0-5); URINE COLOR YELLOW (YELLW/STRAW); URINE LEUKOCYTE ESTERASE NEG (NEG)
[2017-09-24] MEDS ORDERED: SODIUM CHLORIDE 0.9% FLUSH 10 ML FLUSH IV FLUSH PRN (05:45)
[2017-09-24] MEDS ORDERED: SENNOSIDES 8.6 MG TAB PO PRN (05:45)
[2017-09-24] MEDS ORDERED: ACETAMINOPHEN 325 MG TAB PO PRN (05:45)
[2017-09-24] MEDS ORDERED: LACTULOSE SYRUP 20 GM/30 ML CUP PO PRN (05:45)
[2017-09-24] MEDS ORDERED: RESP: ALBUTEROL 2.5 MG/3 ML NEB (PRN) INH (05:45)
[2017-09-24] MEDS ORDERED: BISACODYL 10 MG SUPP RECTAL PRN (05:45)
[2017-09-24] MEDS ORDERED: CHLORHEXIDINE GLUCONATE 2 % 1 PACK (2 CLOTHS) TOP PRN (05:45)
[2017-09-24] MEDS ORDERED: MAGNESIUM HYDROXIDE SUSP 30 ML CUP PO PRN (05:45)
[2017-09-24] MEDS ORDERED: NURSING INFORMATION XX SCH (05:45)
[2017-09-24] MEDS: DILTIAZEM HCL 60 MG TAB OG-TUBE SCH ×3 (06:00→17:32)
[2017-09-24] MEDS ORDERED: PANTOPRAZOLE SODIUM 40 MG VIAL IV PUSH SCH (08:00)
[2017-09-24] MEDS: SODIUM CHLORIDE 0.9% FLUSH 10 ML FLUSH IV FLUSH SCH ×2 (08:04→20:20)
[2017-09-24] MEDS ORDERED: DOCUSATE SODIUM 50 MG/SENNA 8.6 MG TAB PO SCH (09:00)
[2017-09-24] MEDS ORDERED: metroNIDAZOLE 500 MG INJ 100 ML IV SCH (09:00)
[2017-09-24] MEDS ORDERED: LANSOPRAZOLE SOLUTAB 30 MG TAB G-TUBE SCH (09:00)
--- NOTE | 2017-09-24 10:23 | HHI.HP ---
HPI Service Family Medicine Primary Care Physician Priyank Freire MD Admission Diagnosis Resp failure CHF Diagnoses: Chief Complaint: SOB International Travel<30 Days: No Contact w/Intl Traveler<30days: No Known Affected Area: No History of Present Illness Ms Sosa is a 72 YO female w/PMHx COPD, CAD s/p 3 vessel CABG 2009 and left heart cath (w/2 stents) August 2017, Afib with RVR, HLD, DM and GERD who presents to the ED with SOB and in Afib RVR at rate to 170 who failed prone CPAP , desaturated to 68%, then agreed to intubation. Pt was intubated and sedated with versed, etomidate, fentanyl and propofol. S/p intubation pt satted at 100% , RVR reduced to 120, and then to 90s this morning. Pt unable to provide HPI or ROS due to resp distress last night, then intubation/sedation. Pt had 3 vessel CABG of left main, circumflex, LAD with two stents placed in August. Follow up ECHO 09/10/17 shows EF 35-40% mild LV dilation and global dysfunction, normal RV , LA mod-severe dilation with mod-severe MR, RA dilation with moderate TR, mild aortic regurg, and pulm artery pressure 44.3 mmHg. Pt is followed by Dr Madden. Review of Systems ROS Limitations: Clinical Condition, Intubated Past Family Social History Past Medical History CAD s/p 3 vessel CABG (w/ 2 stents) August 2017 AFib w/RVR CHF HTN HLD COPD with 2L O2 requirement DM CKD GERD Past Surgical History Left heart cath August 2017 3 stents in lower extremity Dr. Gardiner; 2015 (Left and right legs, and abdominal aorta) Right knee replacement; 2014 Dr. Alexander Lumbar Spine L5-S1 repair (2 spacers and rods, some hardware removed during second surgery); 2013 Dr. Valdes Right and Left Cataracts; , Dr. Montoya Triple CABG 2004; Dr. Romano Total Hysterectomy 1973 Bilateral foot surgery in 1972 Esophageal surgery (stretched) Reported Medications Reported Meds & Active Scripts Active Oxygen tank (Oxygen) 1 Ea Tank Liter PA.CANULA CONTINUOUS Oxygen Concentrator Portable Gaseous 2 L/min via Nasal Cannula Continuous For 99 months Eliquis (Apixaban) 2.5 Mg Tab 2.5 Mg PO BID Diltiazem CD 24 HR 240 Mg Caper 240 Mg PO DAILY 30 Days Oxygen tank (Oxygen) 1 Ea Tank Liter PA.CANULA CONTINUOUS Oxygen Concentrator Portable Gaseous 2 L/min via Nasal Cannula Continuous For 99 months Isosorbide Mononitrate ER (Isosorbide Mononitrate) 30 Mg Sagar 30 Mg PO DAILY@ 07 30 Days [Albuterol-Ipratropium Neb] 1 AMPULE Nebu 1 Ampule NEB Q6HR NEB PRN 14 Days Lopressor (Metoprolol Tartrate) 50 Mg Tab 50 Mg PO Q12HR Brilinta (Ticagrelor) 90 Mg Tab 90 Mg PO BID Metformin (Metformin HCl) 500 Mg Tab 500 Mg PO DAILY With a meal Atorvastatin (Atorvastatin Calcium) 40 Mg Tab 40 Mg PO HS Reported Lyrica (Pregabalin) 150 Mg Cap 150 Mg PO DAILY Furosemide 20 Mg Tab 20 Mg PO DAILY Plavix (Clopidogrel Bisulfate) 75 Mg Tab 75 Mg PO DAILY Lisinopril 10 Mg Tab 10 Mg PO DAILY Hydrocodone-Acetaminophen 5-325 mg Tab 1 Tab PO Q6H PRN Advair Diskus Inh (Fluticasone-Salmeterol Inh) 250-50 Mcg/Blist Aer 1 Puff INH BID Rinse mouth after use. Ventolin Hfa 18 GM Inh (Albuterol Sulfate) 90 Mcg/Act Aer 2 Puff INH Q4H PRN Allergies: Coded Allergies: No Known Allergies (Unverified Allergy, Unknown, 09/24/17) Active Ordered Medications Current Medications Medications (Trade) Dose Ordered Sig/Hilda Route Start Time Stop Time Status Last Admin Propofol 100 ml @ 0 mls/hr TITRATE PRN IV 09/24/17 02:30 09/24/17 02:46 Fentanyl Citrate 250 ml @ 5 mls/hr TITRATE PRN IV 09/24/17 02:30 09/24/17 02:46 Midazolam HCl 50 ml @ 2 mls/hr TITRATE PRN IV 09/24/17 03:00 09/24/17 02:51 (Cardizem) 60 mg Q6HR OG-TUBE 09/24/17 06:00 09/24/17 06:00 (NS Flush) 2 ml UNSCH PRN IV FLUSH 09/24/17 05:45 (NS Flush) 2 ml BID IV FLUSH 09/24/17 09:00 (Tylenol) 650 mg Q6H PRN PO 09/24/17 05:45 (Duoneb Neb) 1 ampule Q6HR NEB INH 09/24/17 10:00 (Albuterol Neb) 2.5 mg Q2HR NEB PRN INH 09/24/17 05:45 ([facility] Information) 1 Q361D XX 09/24/17 05:45 09/24/17 05:45 (Chlorhexidine 2% Cloth) 3 pack Taper DAILY@04 TOP 09/25/17 04:00 09/21/18 03:59 (Chlorhexidine 2% Cloth) 3 pack UNSCH PRN TOP 09/24/17 05:45 (Neyda-Colace) 1 tab BID PO 09/24/17 09:00 (Milk Of Magnesia Liq) 30 ml Q12H PRN PO 09/24/17 05:45 (Senokot) 17.2 mg Q12H PRN PO 09/24/17 05:45 (Dulcolax Supp) 10 mg DAILY PRN RECTAL 09/24/17 05:45 (Lactulose Liq) 30 ml DAILY PRN PO 09/24/17 05:45 (Protonix Inj) 40 mg Q24H IV PUSH 09/24/17 08:00 Metronidazole 100 ml @ 100 mls/hr Q8H IV 09/24/17 09:00 Family History Father - Diabetes Mellitus, passed at age of 69 y/o Mother - Ovarian cancer at the age 53 y/o 2 sisters - Good health 82 y/o, Nandini 76 y/o mental problems 3 children - healthy, son with HTN (reported from previous H&P) Social History EtOH - rarely Tobacco - yes; 1ppd x 55 years Other drugs - no 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) Physical Exam Vital Signs Vital Signs Date Time Temp Pulse Resp B/P (MAP) Pulse Ox O2 Delivery O2 Flow Rate FiO2 09/24/17 08:57 100 60 09/24/17 08:00 97.5 95 17 105/57 (73) 100 09/24/17 08:00 95 09/24/17 06:36 86 09/24/17 06:35 100 09/24/17 06:34 97.7 86 14 128/66 (86) 100 09/24/17 06:25 09/24/17 06:10 96 60 09/24/17 05:06 100 80 09/24/17 05:05 98.7 87 16 109/71 (84) 100 Ventilator 60 09/24/17 04:01 91 14 112/59 (76) 100 Ventilator 80 09/24/17 03:11 107 14 115/60 (78) 100 Ventilator 100 09/24/17 02:55 100 Ventilator 80 09/24/17 02:53 100 09/24/17 02:53 104 14 123/81 (95) 100 Ventilator 100 09/24/17 02:30 126 18 164/92 (116) 100 Ventilator 100 09/24/17 02:22 100 100 09/24/17 02:11 98.9 138 28 148/94 (112) 100 Ventilator 100 Physical Exam GENERAL: This is a well-nourished, well-developed patient in no apparent distress, intubated and sedated in the ICU. SKIN: No rashes, ecchymoses or lesions. Cool and dry. HEAD: Atraumatic. Normocephalic. No temporal or scalp tenderness. EYES: Pupils equal round and reactive. Extraocular motions intact. No scleral icterus. No injection or drainage. ENT: Nose without drainage. Airway maintained by intubation. NECK: Trachea midline. No JVD or lymphadenopathy. Supple, nontender, no meningeal signs. CARDIOVASCULAR: Irregular rate and rhythm without murmurs, gallops, or rubs. RESPIRATORY: Clear to auscultation. Breath sounds equal bilaterally. No wheezes , rales, or rhonchi. No crackles. Intubated on PRVC/AC with TV 0.45L/5.5L min/ PEEP 5/FiO2 45% GASTROINTESTINAL: Abdomen soft, non-tender, nondistended. No hepato-splenomegaly , or palpable masses. No guarding. Normal BS. : [place] in place draining yellow urine w/o sediment. MUSCULOSKELETAL: Extremities cool and dry without clubbing, cyanosis, or edema. No joint tenderness, effusion, or edema noted. Right knee surgical scar well healed. No calf tenderness or erythema. NEUROLOGICAL: Intubated and sedated. Does not withdraw to painful stimuli; does not arouse to name/voice. Does not follow commands. Laboratory Laboratory Tests Test 09/24/17 02:39 09/24/17 02:44 09/24/17 03:07 09/24/17 06:30 White Blood Count 10.1 Red Blood Count 3.78 Hemoglobin 11.6 Hematocrit 36.5 Mean Corpuscular Volume 96.7 Mean Corpuscular Hemoglobin 30.6 Mean Corpuscular Hemoglobin Concent 31.7 Red Cell Distribution Width 15.3 Platelet Count 296 Mean Platelet Volume 9.2 Neutrophils (%) (Auto) 63.8 Lymphocytes (%) (Auto) 23.0 Monocytes (%) (Auto) 6.2 Eosinophils (%) (Auto) 6.4 Basophils (%) (Auto) 0.6 Neutrophils # (Auto) 6.5 Lymphocytes # (Auto) 2.3 Monocytes # (Auto) 0.6 Eosinophils # (Auto) 0.6 Basophils # (Auto) 0.1 CBC Comment DIFF FINAL Differential Comment Blood Urea Nitrogen 18 Creatinine 1.65 Random Glucose 182 Total Protein 7.7 Albumin 3.5 Calcium Level 8.3 Magnesium Level 2.0 Alkaline Phosphatase 136 Aspartate Amino Transf (AST/SGOT) 50 Alanine Aminotransferase (ALT/SGPT) 63 Total Bilirubin 0.5 Sodium Level 140 Potassium Level 4.4 Chloride Level 106 Carbon Dioxide Level 24.9 Anion Gap 9 Estimat Glomerular Filtration Rate 30 Total Creatine Kinase 51 Troponin I LESS THAN 0.02 B-Type Natriuretic Peptide 692 Lipase 93 Blood Gas Puncture Site LT RADIAL Blood Gas Patient Temperature 98.6 Blood Gas HCO3 25 Blood Gas Base Excess -1.5 Blood Gas Oxygen Saturation 98 Arterial Blood pH 7.25 Arterial Blood Partial Pressure CO2 59 Arterial Blood Partial Pressure O2 451 Arterial Blood Oxygen Content 16.7 Arterial Blood Carboxyhemoglobin 1.3 Arterial Blood Methemoglobin 0.7 Blood Gas Hemoglobin 11.3 Oxygen Delivery Device VENT Blood Gas Ventilator Setting PRVC/AC Blood Gas Inspired Oxygen 100 Urine Color YELLOW Urine Turbidity CLEAR Urine pH 5.5 Urine Specific [place] 1.008 Urine Protein TRACE Urine Glucose (UA) NEG Urine Ketones NEG Urine Occult Blood NEG Urine Nitrite NEG Urine Bilirubin NEG Urine Urobilinogen LESS THAN 2.0 Urine Leukocyte Esterase NEG Urine WBC LESS THAN 1 Urine Squamous Epithelial Cells <1 Urine Bacteria RARE Urine Hyaline Casts 2 Microscopic Urinalysis Comment CATH-CULTURE IND Stool C. difficile Toxin (PCR) POSITIVE Stl C. difficile Toxin Epiderm 027 PRESUMPTIVE NEGATIVE Date/Time Source Procedure Growth Status 09/24/17 05:47 Sputum Endotracheal Gram Stain Pending Received 09/24/17 05:47 Sputum Endotracheal Sputum Culture Pending Received 09/24/17 03:07 Urine Catheterized Urine Urine Culture Pending Received Result Diagram: 09/24/17 0239 09/24/17 0239 Imaging Last Impressions Chest X-Ray 09/24/17 0000 Signed Impressions: CONCLUSION: 1. Status post intubation. 2. New bilateral hazy opacity of concern for pulmonary edema. 3. Mild cardiomegaly. Septic Shock Reassessment Septic shock perfusion: reassessment completed Caprini VTE Risk Assessment Caprini VTE Risk Assessment: Mod/High Risk (score >= 2) Caprini Risk Assessment Model Point Value = 1 Point Value = 2 Point Value = 3 Point Value = 5 Age 41-60 Minor surgery BMI > 25 kg/m2 Swollen legs Varicose veins or History of unexplained or recurrent spontaneous Oral contraceptives or hormone replacement Sepsis (< 1 month) Serious lung disease, including pneumonia (< 1 month) Abnormal pulmonary function Acute myocardial infarction Congestive heart failure (< 1 month) History of inflammatory bowel disease Medical patient at bed rest Age 61-74 Arthroscopic surgery Major open surgery (> 45 min) Laparoscopic surgery (> 45 min) Malignancy Confined to bed (> 72 hours) Immobilizing plaster cast Central venous access Age >= 75 History of VTE Family history of VTE Factor V Leiden Prothrombin [id number] Lupus anticoagulant Anticardiolipin antibodies Elevated serum homocysteine Heparin-induced thrombocytopenia Other congenital or acquired thrombophilia Stroke (< 1 month) Elective arthroplasty Hip, pelvis, or leg fracture Acute spinal cord injury (< 1 month) Prophylaxis Regimen Total Risk Factor Score Risk Level Prophylaxis Regimen 0-1 Low Early ambulation 2 Moderate Order ONE of the following: *Sequential Compression Device (SCD) *Heparin 5000 units SQ BID 3-4 Higher Order ONE of the following medications: *Heparin 5000 units SQ TID *Enoxaparin/Lovenox 40 mg SQ daily (WT < 150 kg, CrCl > 30 mL/min) *Enoxaparin/Lovenox 30 mg SQ daily (WT < 150 kg, CrCl > 10-29 mL/min) *Enoxaparin/Lovenox 30 mg SQ BID (WT < 150 kg, CrCl > 30 mL/min) AND/OR *Sequential Compression Device (SCD) 5 or more Highest Order ONE of the following medications: *Heparin 5000 units SQ TID (Preferred with Epidurals) *Enoxaparin/Lovenox 40 mg SQ daily (WT < 150 kg, CrCl > 30 mL/min) *Enoxaparin/Lovenox 30 mg SQ daily (WT < 150 kg, CrCl > 10-29 mL/min) *Enoxaparin/Lovenox 30 mg SQ BID (WT < 150 kg, CrCl > 30 mL/min) AND *Sequential Compression Device (SCD) Assessment and Plan Assessment and Plan 72 YO female w/PMHx COPD, CAD s/p 3 vessel CABG (w/2 stents) August 2017, Afib with RVR, HLD, DM and GERD who presents to the ED with SOB and in Afib RVR at rate to 170 who failed prone CPAP and was intubated and admitted to ICU with Afib w/RVR, CHF, pulmonary edema, and acute hypoxic respiratory failure; subsequently found C Diff positive on PCR. Impression: ABG pH 7.35 / PCO2 59 / PO2 451 / HCO3 16.7 - acute respiratory acidosis CBC wnl CMP showing Cr 1.65 / GFR est 30; serum glucose 182; slightly elevated LFTs AST 50 / ALT 63 / AP 136 with normal Lipase EKG non-specific ST changes; AFib/RVR, low voltage extremity leads; QTc 430 BNP 692 Troponin <0.02 x2 UA with rare bacteria, 2 hyaline casts, trace protein; urine cx pending CXR showing bilateral hazy opacities with pulm edema and mild cardiomegaly sputum cx pending C Diff tox PCR positive PLAN: 1. Respiratory pt presenting with respiratory acidosis and acute respiratory failure in setting of low cardiac reserve and failed prone CPAP in ED -Pt intubated and sedated with versed, etomidate, fentanyl, propofol: versed 2mg /hr, fentanyl 50mcg/hr, propofol 7.2ml/hr -administered Rocephin 1g IV in ED -Vent settings: PRVC/AC with TV 0.45L/14bpm/5.5L/min/PEEP 5.0/FiO2 45% - pulse ox 100% -CXR showing bilateral hazy opacities with pulm edema and mild cardiomegaly -Daily CPAP trials with goal of extubation -Hold home Albuterol due to RVR -Duonebs scheduled q6h, with PRN q4h -Continue home Advair 1 puff BID -Hold steroids due to normal lung exam/no crackles -CXR tomorrow 2. Cardiovascular pt presenting with uncontrolled AFib with RVR to 170; EKG w/AFib RVR, non- specific ST changes; ECHO 09/10/17 EF 35-40% w/mod-severe MR, TR, LV dysfunction -Rate controlled in low 90s on Diltiazem 60mg q6h per OG-tube -Hold home dose Dilt 240mg; possible non-compliance -Hold home dose Lasix 20mg daily -Lasix 40mg IV due to pulm edema, CHF -Isosorbide nitrate topical PRN -Serial troponins x2, r/o ischemia -Cardiology consult, Dr Madden -Continue home dose medications: -Metoprolol tartrate 50mg q12h -Eliquis 2.5mg BID -Plavix 75mg daily -Brilinta 90mg BID -Atorvastatin 40mg qhs -Hold home Lisinopril 10mg daily -Hold home Isosorbide nitrate ER 30mg 3. GI/Liver -C Diff positive on PCR; no reported diarrhea thus far; possible maroon stool reported; Hgb 10.6 -Discontinue Flagyl 500mg IV q8h started in ED -Start Vancomycin 125mg via OG-tube q6h -Stop Protonix 40mg IV daily -Start Pepcid 20mg liquid daily via OG tube -Contact precautions -Elevated LFTs with normal Lipase -Abdominal/Liver US -GI consulted 4. Endocrine/DM -Hold home Metformin -Low SSI -Accuchecks 5. /Renal / CKD -Cr 1.65 on admission, close to known baseline this year -Hold Lisinopril to avoid hypotension -Caution on IV fluids due to presenting with pulm edema 6. Neuro -Neuro checks per protocol 7. FEN/GI/PPx: Fluids: holding for now Electrolytes: wnl Nutrition: Start Glucerna 1.5 at 30cc/hr and advance towards goal of 60cc/hr GI: Pepcid as above PPx: Plavix, Eliquis, Brilinta as above PRN bowel regimen; scheduled Neyda-colace discontinued due to C Diff positive Tylenol 650mg q6h pain or fever >100.4 PT/OT/ST tomorrow Code Status FULL Discussed Condition With Dr Washington Problem List: (1) FEN/GI/PPx (2) C. difficile colitis ICD Codes: A04.72 - Enterocolitis due to Clostridium difficile, not specified as recurrent (3) COPD (chronic obstructive pulmonary disease) ICD Codes: J44.9 - Chronic obstructive pulmonary disease, unspecified Status: Chronic (4) Diabetes ICD Codes: E11.9 - Type 2 diabetes mellitus without complications (5) Hypertension ICD Codes: I10 - Essential (primary) hypertension Status: Chronic (6) Chronic kidney disease (CKD) ICD Codes: N18.9 - Chronic kidney disease, unspecified (7) CAD (coronary artery disease) ICD Codes: I25.10 - Atherosclerotic heart disease of [place] coronary artery without angina pectoris Status: Chronic (8) Atrial fibrillation with RVR ICD Codes: I48.91 - Unspecified atrial fibrillation Status: Acute (9) Respiratory failure ICD Codes: J96.90 - Respiratory failure, unspecified, unspecified whether with hypoxia or hypercapnia Status: Acute (10) CHF (congestive heart failure) ICD Codes: I50.9 - Heart failure, unspecified Status: Chronic (11) Tobacco use disorder ICD Codes: F17.200 - Nicotine dependence, unspecified, uncomplicated (12) Dyspnea ICD Codes: R06.00 - Dyspnea, unspecified Physician Certification 2 Midnight Certification Type: Admission for Inpatient Services Order for Inpatient Services The services are ordered in accordance with Medicare regulations or non- Medicare payer requirements, as applicable. In the case of services not specified as inpatient-only, they are appropriately provided as inpatient services in accordance with the 2-midnight benchmark. Estimated LOS (days): 3 days is the estimated time the patient will need to remain in the hospital, assuming treatment plan goals are met and no additional complications. Post-Hospital Plan: Not yet determined Problem Qualifiers (1) Respiratory failure: Qualified Codes: J96.00 - Acute respiratory failure, unspecified whether with hypoxia or hypercapnia (2) CHF (congestive heart failure): Qualified Codes: I50.9 - Heart failure, unspecified Hay Cervantes MD R1 September 24, 2017 10:22
--- NOTE | 2017-09-24 11:57 | PD.CONS ---
HPI History of Present Illness This is a 72 year old frail female who was admitted on 09/24/2017 with shortness of breath and rapid atrial fib to the intensive care unit. According to the record patient initially agreed to intubation and is currently being managed with ventilator and sedation. Gastroenterology was consulted for maroon stools and according to the record patient has been on Eliquis. Currently Eliquis is on hold. Current heart rate noted 81 atrial fibrillation, NG tube with small red specks and clear serous drainage connected to suction. Patient has Longoria catheter with clear yellow urine. Current labs include hemoglobin at 11.6, recheck was done and shows 10.6. WBC count 10.1, LFTs AST 50, ALT 63 which could be related to shock liver. Current bilirubin 0.5. Alkaline phosphatase 136. Patient is positive for C. difficile and according to the staff was discharged from [facility] back in August to a SNF. (Shirlene Avila) PFSH Past Medical History Medical history according to the record arthritis Atrial fib Cardiovascular disease Hyperlipidemia COPD Coronary artery disease Diabetes GERD Hypertension Arthritis Past Surgical History According to the record lumbar's spine surgery with gm and screws Triple bypass Bilateral cataract surgery for detached retina 10 years ago Hysterectomy Joint replacement right knee Previous dilation of esophagus (Shirlene Avila) Coded Allergies: No Known Allergies (Unverified Allergy, Unknown, 09/24/17) Medications Administered Medications Medications (Trade) Dose Ordered Sig/Hilda Route PRN Reason Start Time Stop Time Status Last Admin Dose Admin Propofol 100 ml @ 0 mls/hr TITRATE PRN IV SEDATION 09/24/17 02:30 09/24/17 02:46 Fentanyl Citrate 250 ml @ 5 mls/hr TITRATE PRN IV SEDATION 09/24/17 02:30 09/24/17 02:46 Midazolam HCl 50 ml @ 2 mls/hr TITRATE PRN IV SEDATION 09/24/17 03:00 09/24/17 02:51 Diltiazem HCl (Cardizem) 60 mg Q6HR OG-TUBE 09/24/17 06:00 09/24/17 06:00 Miscellaneous Information ([facility] Nursing Information) 1 [id number] XX 09/24/17 05:45 09/24/17 05:45 Metronidazole 100 ml @ 100 mls/hr Q8H IV 09/24/17 09:00 09/24/17 10:10 Family History Unknown Social History Unknown except the patient was recently discharged from the hospital and was sent to a SNF (Shirlene Avila) GI Exam Vitals I&O Vital Signs Date Time Temp Pulse Resp B/P (MAP) Pulse Ox O2 Delivery O2 Flow Rate FiO2 09/24/17 11:04 100 45 09/24/17 10:00 84 09/24/17 08:57 100 60 09/24/17 08:00 97.5 95 17 105/57 (73) 100 09/24/17 08:00 95 09/24/17 08:00 100 09/24/17 06:36 86 09/24/17 06:35 100 09/24/17 06:34 97.7 86 14 128/66 (86) 100 09/24/17 06:25 09/24/17 06:10 96 60 09/24/17 05:06 100 80 09/24/17 05:05 98.7 87 16 109/71 (84) 100 Ventilator 60 09/24/17 04:01 91 14 112/59 (76) 100 Ventilator 80 09/24/17 03:11 107 14 115/60 (78) 100 Ventilator 100 09/24/17 02:55 100 Ventilator 80 09/24/17 02:53 100 09/24/17 02:53 104 14 123/81 (95) 100 Ventilator 100 09/24/17 02:30 126 18 164/92 (116) 100 Ventilator 100 09/24/17 02:22 100 100 09/24/17 02:11 98.9 138 28 148/94 (112) 100 Ventilator 100 I/O 09/23/17 09/23/17 09/23/17 09/24/17 09/24/17 09/24/17 07:00 15:00 23:00 07:00 15:00 23:00 Intake Total 100 ml Balance 100 ml Intake IV Total 100 ml Imaging Last Impressions Chest X-Ray 09/24/17 0000 Signed Impressions: CONCLUSION: 1. Status post intubation. 2. New bilateral hazy opacity of concern for pulmonary edema. 3. Mild cardiomegaly. Laboratory Test 09/24/17 02:39 09/24/17 02:44 09/24/17 03:07 5/24/18 06:30 White Blood Count 10.1 TH/MM3 Red Blood Count 3.78 MIL/MM3 Hemoglobin 11.6 GM/DL Hematocrit 36.5 % Mean Corpuscular Volume 96.7 FL Mean Corpuscular Hemoglobin 30.6 PG Mean Corpuscular Hemoglobin Concent 31.7 % Red Cell Distribution Width 15.3 % Platelet Count 296 TH/MM3 Mean Platelet Volume 9.2 FL Neutrophils (%) (Auto) 63.8 % Lymphocytes (%) (Auto) 23.0 % Monocytes (%) (Auto) 6.2 % Eosinophils (%) (Auto) 6.4 % Basophils (%) (Auto) 0.6 % Neutrophils # (Auto) 6.5 TH/MM3 Lymphocytes # (Auto) 2.3 TH/MM3 Monocytes # (Auto) 0.6 TH/MM3 Eosinophils # (Auto) 0.6 TH/MM3 Basophils # (Auto) 0.1 TH/MM3 CBC Comment DIFF FINAL Differential Comment Blood Urea Nitrogen 18 MG/DL Creatinine 1.65 MG/DL Random Glucose 182 MG/DL Total Protein 7.7 GM/DL Albumin 3.5 GM/DL Calcium Level 8.3 MG/DL Magnesium Level 2.0 MG/DL Alkaline Phosphatase 136 U/L Aspartate Amino Transf (AST/SGOT) 50 U/L Alanine Aminotransferase (ALT/SGPT) 63 U/L Total Bilirubin 0.5 MG/DL Sodium Level 140 MEQ/L Potassium Level 4.4 MEQ/L Chloride Level 106 MEQ/L Carbon Dioxide Level 24.9 MEQ/L Anion Gap 9 MEQ/L Estimat Glomerular Filtration Rate 30 ML/MIN Total Creatine Kinase 51 U/L Troponin I LESS THAN 0.02 NG/ML B-Type Natriuretic Peptide 692 PG/ML Lipase 93 U/L Blood Gas Puncture Site LT RADIAL Blood Gas Patient Temperature 98.6 Blood Gas HCO3 25 mmol/L Blood Gas Base Excess -1.5 mmol/L Blood Gas Oxygen Saturation 98 % Arterial Blood pH 7.25 Arterial Blood Partial Pressure CO2 59 mmHg Arterial Blood Partial Pressure O2 451 mmHG Arterial Blood Oxygen Content 16.7 Vol % Arterial Blood Carboxyhemoglobin 1.3 % Arterial Blood Methemoglobin 0.7 % Blood Gas Hemoglobin 11.3 G/DL Oxygen Delivery Device VENT Blood Gas Ventilator Setting PRVC/AC Blood Gas Inspired Oxygen 100 % Urine Color YELLOW Urine Turbidity CLEAR Urine pH 5.5 Urine Specific Asher 1.008 Urine Protein TRACE mg/dL Urine Glucose (UA) NEG mg/dL Urine Ketones NEG mg/dL Urine Occult Blood NEG Urine Nitrite NEG Urine Bilirubin NEG Urine Urobilinogen LESS THAN 2.0 MG/DL Urine Leukocyte Esterase NEG Urine WBC LESS THAN 1 /hpf Urine Squamous Epithelial Cells <1 /hpf Urine Bacteria RARE /hpf Urine Hyaline Casts 2 /lpf Microscopic Urinalysis Comment CATH-CULTURE IND Stool C. difficile Toxin (PCR) POSITIVE Stl C. difficile Toxin Epiderm 027 PRESUMPTIVE NEGATIVE Nasal Screen MRSA (PCR) MRSA NOT DETECTED Test 09/24/17 10:26 Hemoglobin 10.6 GM/DL Troponin I LESS THAN 0.02 NG/ML Date/Time Source Procedure Growth Status 09/24/17 05:47 Sputum Endotracheal Gram Stain Pending Received 09/24/17 05:47 Sputum Endotracheal Sputum Culture Pending Received 09/24/17 03:07 Urine Catheterized Urine Urine Culture Pending Received Physical Examination HEENT: normocephalic; atraumatic; no jaundice. Throat is clear. NECK: Neck is supple, no JVD, no lymphadenopathy. CHEST: Diminished breath sounds in her bases positive rhonchi CARDIAC: Irregular rhythm, 81 ABDOMEN: Round, soft, bowel sounds soft EXTREMITIES: Some mild generalized edema SKIN: Pale no rash; no jaundice. DOCENT COORDINATOR: Sedated (Shirlene Avila) Assessment and Plan Assessment: (1) Morbid obesity ICD Codes: E66.01 - Morbid (severe) obesity due to excess calories (2) C. difficile colitis ICD Codes: A04.72 - Enterocolitis due to Clostridium difficile, not specified as recurrent Plan 72-year-old morbidly obese female admitted on 09/24/2017 with shortness of breath and rapid atrial fib which required intubation on admission. She is currently being managed in the intensive care unit now with a controlled heart rate of atrial fib 81 and on sedation and ventilator management. Currently patient has some mild elevated LFTs which is probably related to shock liver and she is also positive for C. difficile. Current hemoglobin on admission 11.6 now 10.6. Was noted on admission that she had maroon stools and had been on Eliquis and GI was consulted. According to the nurses she has had no further maroon stools, and Eliquis is on hold. Patient was discharged sometime back in August to a [facility] and is now returned back to the hospital positive for C. difficile. Current abdomen is soft round, obese,, NG tube has some small red specks and clear serous drainage noted and connected to suction. Plan N.p.o. for now Flagyl IV Protonix IV Antiemetics Hold Eliquis for now Monitor for any further bleeding or maroon stools , Hemoccult if needed Transfuse as necessary Monitor lab There is currently no family is present but maintained supportive care Further recommendations to follow Patient was seen per myself and Dr. Gleason, note was written on his behalf (Shirlene Avila) Physician Comments Patient seen and examined Agree with above Continue with current supportive care Monitor labs Patient also noted to have mild elevation of the liver function tests with an abnormality seen on the ultrasound suggestive of a liver possibly cystic mass versus hemangioma it is also noted the patient has chronic kidney disease and as such is unable to receive contrast at this point for a better evaluation For now we will continue to monitor labs Once renal function improves I think we need to pursue either contrasted CT or an MRI to further evaluate this mass Tumor markers have been ordered (Tomasz Gleason MD) Shirlene Avila September 24, 2017 11:57 Tomasz Gleason MD September 24, 2017 21:46
[2017-09-24] MEDS ORDERED: RESP: ALBUTEROL 2.5 MG/IPRATROPIUM 0.5 MG NEB (PRN) NEB (12:00)
[2017-09-24] MEDS ORDERED: NITROGLYCERIN 2% OINT 1 GM PACKET TOPICAL PRN (12:00)
--- NOTE | 2017-09-24 13:12 | RADRPT ---
EXAM DATE: 09/24/2017 10:38 AM EDT AGE/SEX: 72 years / Female INDICATIONS: Elevated liver function tests and creatinine. CLINICAL DATA: This is the patient's subsequent encounter. Patient reports that signs and symptoms h ave been present for 1 day and indicates a pain score of Nonresponsive. MEDICAL/SURGICAL HISTORY: . MS. Hypercholesterol. HTN. COPD. GERD. Diabetic. Ectopic preg [place]. . Right knee surgery. Bilateral foot surgery. Stents right and left leg. Aortic stent. Sp inal fusion. Hysterectomy. CABG. COMPARISON: [facility] [place], [place] PULMONARY ANGIOGRAM, 07/29/2017. . No external comparison. MEASUREMENTS: Liver:__ 18.4 cm. Common Bile Duct:___ 9mm. Right Kidney:___9.3 x 4.6 x 4.6 . Left Kidney:___10.0 x 4.0 x 4.7 . Spleen:___12.4 . Aorta: The proximal portion measures 2.0 cm maximal. FINDINGS: Liver: There is a hyperechoic subcapsular mass in the right lobe of the liver measuring 1.2 x 1.8 x 1.0 cm. Liver otherwise demonstrates normal echogenicity without significant volume loss or intrahepa tic ductal dilatation. Portal Vein: Hepatofugal flow seen in portal vein. Common Duct: Slightly prominent measuring up to 9 mm without focal lesion. Gallbladder: Multiple nonshadowing nonmobile echogenic foci in the gallbladder measuring up to 9 mm . No significant gallbladder wall thickening. No pericholecystic fluid or sonographic Montalvo sign. Ga llbladder Wall: 2 mm Pancreas: Slightly prominent pancreatic duct. Otherwise, unremarkable. Right Kidney: No mass or hydronephrosis. Measures Left Kidney: No mass or hydronephrosis. Measures Ascites: Trace ascites with fluid primarily near the inferior margin of the liver. Pleural Effusion: Bilateral Spleen: No focal lesion. Measures Aorta: Non aneurysmal. IVC: Within normal limits CONCLUSION: 1. 1.8 cm hypoechoic subcapsular mass in the right lobe of the liver. This may represent focal fatty infiltration. However, differential considerations include hemangioma and malignancy. Further charac terization may be performed with MRI exam on an outpatient basis as clinically warranted. 2. Slightly prominent common bile duct and pancreatic duct without focal abnormality. This is nonspe cific although a partial ampullary obstruction cannot be entirely excluded. 3. Gallbladder polyps versus adherent stones. No sonographic evidence for cholecystitis. 4. Trace ascites and small bilateral pleural effusions. Electronically signed by: Michael Licea MD 09/24/2017 1:11 PM EDT
[2017-09-24] MEDS: FAMOTIDINE 20 MG TAB NG SCH (13:45)
[2017-09-24] MEDS: VANCOMYCIN 500 MG VIAL (FOR ORAL USE ONLY) PO SCH ×3 (13:45→20:19)
[2017-09-24] MEDS: CLOPIDOGREL 75 MG TAB PO SCH (14:02)
--- NOTE | 2017-09-24 14:02 | HHI.HP ---
HPI Service Critical Care Medicine Primary Care Physician Priyank Freire MD Admission Diagnosis Resp failure CHF Diagnosis: Chief Complaint: SOB Travel History International Travel<30 Days: No Contact w/Intl Traveler <30 Da: No Traveled to Known Affected Are: No Sepsis Criteria SIRS Criteria (2 or more): Heart rate over 90 (170), RR > 20 or PaCO2 < 32 Sepsis Criteria (SIRS+source): Infect source susp/known Severe Sepsis (+one): Organ Dysfunction History of Present Illness 09/23: Ms Sosa is a 72 YO female w/PMHx COPD, CAD s/p 3 vessel CABG 2009 and left heart cath (w/2 stents) August 2017, Afib with RVR, HLD, DM and GERD who presents to the ED with SOB and in Afib RVR at rate to 170 who failed prone CPAP , desaturated to 68%, then agreed to intubation. Pt was intubated and sedated with versed, etomidate, fentanyl and propofol. S/p intubation pt satted at 100% , RVR reduced to 120, and then to 90s this morning. Pt unable to provide HPI or ROS due to resp distress last night, then intubation/sedation. Pt had 3 vessel CABG of left main, circumflex, LAD with two stents placed in August. Follow up ECHO 09/10/17 shows EF 35-40% mild LV dilation and global dysfunction, normal RV , LA mod-severe dilation with mod-severe MR, RA dilation with moderate TR, mild aortic regurg, and pulm artery pressure 44.3 mmHg. Pt is followed by Dr Madden. Review of Systems ROS Limitations: Clinical Condition, Intubated Past Family Social History Allergies: Coded Allergies: No Known Allergies (Unverified Allergy, Unknown, 09/24/17) Past Medical History Left Heart Cath (w/ 2 stents) August 2017 CAD s/p 3 vessel CABG 2004 AFib w/RVR CHF HTN HLD COPD with 2L O2 requirement DM CKD Past Surgical History Left heart cath August 2017 3 stents in lower extremity Dr. Gardiner; 2015 (Left and right legs, and abdominal aorta) Right knee replacement; 2014 Dr. Alexander Lumbar Spine L5-S1 repair (2 spacers and rods, some hardware removed during second surgery); 2013 Dr. Valdes Right and Left Cataracts; , Dr. Montoya Triple CABG 2004; Dr. Romano Total Hysterectomy 1974 Bilateral foot surgery in 1972 Esophageal surgery (stretched) Reported Medications Reported Meds & Active Scripts Active Oxygen tank (Oxygen) 1 Ea Tank Liter PA.CANULA CONTINUOUS Oxygen Concentrator Portable Gaseous 2 L/min via Nasal Cannula Continuous For 99 months Eliquis (Apixaban) 2.5 Mg Tab 2.5 Mg PO BID Diltiazem CD 24 HR 240 Mg Caper 240 Mg PO DAILY 30 Days Oxygen tank (Oxygen) 1 Ea Tank Liter PA.CANULA CONTINUOUS Oxygen Concentrator Portable Gaseous 2 L/min via Nasal Cannula Continuous For 99 months Isosorbide Mononitrate ER (Isosorbide Mononitrate) 30 Mg Sagar 30 Mg PO DAILY@ 07 30 Days [Albuterol-Ipratropium Neb] 1 AMPULE Nebu 1 Ampule NEB Q6HR NEB PRN 14 Days Lopressor (Metoprolol Tartrate) 50 Mg Tab 50 Mg PO Q12HR Brilinta (Ticagrelor) 90 Mg Tab 90 Mg PO BID Metformin (Metformin HCl) 500 Mg Tab 500 Mg PO DAILY With a meal Atorvastatin (Atorvastatin Calcium) 40 Mg Tab 40 Mg PO HS Reported Lyrica (Pregabalin) 150 Mg Cap 150 Mg PO DAILY Furosemide 20 Mg Tab 20 Mg PO DAILY Plavix (Clopidogrel Bisulfate) 75 Mg Tab 75 Mg PO DAILY Lisinopril 10 Mg Tab 10 Mg PO DAILY Hydrocodone-Acetaminophen 5-325 mg Tab 1 Tab PO Q6H PRN Advair Diskus Inh (Fluticasone-Salmeterol Inh) 250-50 Mcg/Blist Aer 1 Puff INH BID Rinse mouth after use. Ventolin Hfa 18 GM Inh (Albuterol Sulfate) 90 Mcg/Act Aer 2 Puff INH Q4H PRN Active Ordered Medications Current Medications Medications (Trade) Dose Ordered Sig/Hilda Route Start Time Stop Time Status Last Admin Propofol 100 ml @ 0 mls/hr TITRATE PRN IV 09/24/17 02:30 09/24/17 02:46 Fentanyl Citrate 250 ml @ 5 mls/hr TITRATE PRN IV 09/24/17 02:30 09/24/17 02:46 Midazolam HCl 50 ml @ 2 mls/hr TITRATE PRN IV 09/24/17 03:00 09/24/17 02:51 (Cardizem) 60 mg Q6HR OG-TUBE 09/24/17 06:00 09/24/17 06:00 (NS Flush) 2 ml UNSCH PRN IV FLUSH 09/24/17 05:45 (NS Flush) 2 ml BID IV FLUSH 09/24/17 09:00 (Tylenol) 650 mg Q6H PRN PO 09/24/17 05:45 (Duoneb Neb) 1 ampule Q6HR NEB INH 09/24/17 10:00 ([facility]) 1 Q361D XX 09/24/17 05:45 09/24/17 05:45 (Chlorhexidine 2% Cloth) 3 pack Taper DAILY@04 TOP 09/25/17 04:00 09/21/18 03:59 (Chlorhexidine 2% Cloth) 3 pack UNSCH PRN TOP 09/24/17 05:45 (Milk Of Magnesia Liq) 30 ml Q12H PRN PO 09/24/17 05:45 (Senokot) 17.2 mg Q12H PRN PO 09/24/17 05:45 (Dulcolax Supp) 10 mg DAILY PRN RECTAL 09/24/17 05:45 (Lactulose Liq) 30 ml DAILY PRN PO 09/24/17 05:45 (Duoneb Neb) 1 ampule Q4HR NEB PRN NEB 09/24/17 12:00 (Pepcid) 20 mg DAILY NG 09/24/17 11:15 (Nitroglycerin 2% Oint) 0.5 inch Q8HR PRN TOPICAL 09/24/17 12:00 (Lopressor) 50 mg Q12HR PO 09/24/17 21:00 (Eliquis) 2.5 mg BID PO 09/24/17 21:00 (Plavix) 75 mg DAILY PO 09/24/17 13:00 (Brilinta) 90 mg BID PO 09/24/17 21:00 (Lipitor) 40 mg DAILY PO 09/25/17 09:00 (VANCOMYCIN for oral use only) 125 mg QID PO 09/24/17 13:00 (Symbicort 160-4.5 Mcg Inh) 2 puff BID INH 09/24/17 21:00 Family History Father - Diabetes Mellitus, passed at age of 69 y/o Mother - Ovarian cancer at the age 53 y/o 2 sisters - Good health 82 y/o, Nandini 76 y/o 3 children - healthy, son with HTN Social History Retired, lives alone and independent in activities of ADLs. Ambulates with walker at baseline. Current smoker: 1/2 pack per day (reported 07/29/17), prior smoking habit:1 ppd for past 55 years, Denies illicit drug use Rare EtOH use Son's contact info: Madhav Sosa [phone] Physical Exam Vital Signs Vital Signs Date Time Temp Pulse Resp B/P (MAP) Pulse Ox O2 Delivery O2 Flow Rate FiO2 09/24/17 11:04 100 45 09/24/17 10:00 84 09/24/17 08:57 100 60 09/24/17 08:00 97.5 95 17 105/57 (73) 100 09/24/17 08:00 95 09/24/17 08:00 100 09/24/17 06:36 86 09/24/17 06:35 100 09/24/17 06:34 97.7 86 14 128/66 (86) 100 09/24/17 06:25 09/24/17 06:10 96 60 09/24/17 05:06 100 80 09/24/17 05:05 98.7 87 16 109/71 (84) 100 Ventilator 60 09/24/17 04:01 91 14 112/59 (76) 100 Ventilator 80 09/24/17 03:11 107 14 115/60 (78) 100 Ventilator 100 09/24/17 02:55 100 Ventilator 80 09/24/17 02:53 100 09/24/17 02:53 104 14 123/81 (95) 100 Ventilator 100 09/24/17 02:30 126 18 164/92 (116) 100 Ventilator 100 09/24/17 02:22 100 100 09/24/17 02:11 98.9 138 28 148/94 (112) 100 Ventilator 100 Physical Exam GENERAL: This is a well-nourished, well-developed patient in no apparent distress, intubated and sedated in the ICU. SKIN: No rashes, ecchymoses or lesions. Cool and dry. HEAD: Atraumatic. Normocephalic. No temporal or scalp tenderness. EYES: Pupils equal round and reactive. Extraocular motions intact. No scleral icterus. No injection or drainage. ENT: Nose without drainage. Airway maintained by intubation. NECK: Trachea midline. No JVD or lymphadenopathy. Supple, nontender, no meningeal signs. CARDIOVASCULAR: Irregular rate and rhythm without murmurs, gallops, or rubs. RESPIRATORY: Clear to auscultation. Breath sounds equal bilaterally. No wheezes , rales, or rhonchi. No crackles. Intubated on PRVC/AC with TV 0.45L/5.5L min/ PEEP 5/FiO2 45% GASTROINTESTINAL: Abdomen soft, non-tender, nondistended. No hepato-splenomegaly , or palpable masses. No guarding. Normal BS. : [place] in place draining yellow urine w/o sediment. MUSCULOSKELETAL: Extremities cool and dry without clubbing, cyanosis, or edema. No joint tenderness, effusion, or edema noted. Right knee surgical scar well healed. No calf tenderness or erythema. NEUROLOGICAL: Intubated and sedated. Does not withdraw to painful stimuli; does not arouse to name/voice. Does not follow commands. Laboratory Laboratory Tests Test 09/24/17 02:39 09/24/17 02:44 09/24/17 03:07 09/24/17 06:30 White Blood Count 10.1 Red Blood Count 3.78 Hemoglobin 11.6 Hematocrit 36.5 Mean Corpuscular Volume 96.7 Mean Corpuscular Hemoglobin 30.6 Mean Corpuscular Hemoglobin Concent 31.7 Red Cell Distribution Width 15.3 Platelet Count 296 Mean Platelet Volume 9.2 Neutrophils (%) (Auto) 63.8 Lymphocytes (%) (Auto) 23.0 Monocytes (%) (Auto) 6.2 Eosinophils (%) (Auto) 6.4 Basophils (%) (Auto) 0.6 Neutrophils # (Auto) 6.5 Lymphocytes # (Auto) 2.3 Monocytes # (Auto) 0.6 Eosinophils # (Auto) 0.6 Basophils # (Auto) 0.1 CBC Comment DIFF FINAL Differential Comment Blood Urea Nitrogen 18 Creatinine 1.65 Random Glucose 182 Total Protein 7.7 Albumin 3.5 Calcium Level 8.3 Magnesium Level 2.0 Alkaline Phosphatase 136 Aspartate Amino Transf (AST/SGOT) 50 Alanine Aminotransferase (ALT/SGPT) 63 Total Bilirubin 0.5 Sodium Level 140 Potassium Level 4.4 Chloride Level 106 Carbon Dioxide Level 24.9 Anion Gap 9 Estimat Glomerular Filtration Rate 30 Total Creatine Kinase 51 Troponin I LESS THAN 0.02 B-Type Natriuretic Peptide 692 Lipase 93 Blood Gas Puncture Site LT RADIAL Blood Gas Patient Temperature 98.6 Blood Gas HCO3 25 Blood Gas Base Excess -1.5 Blood Gas Oxygen Saturation 98 Arterial Blood pH 7.25 Arterial Blood Partial Pressure CO2 59 Arterial Blood Partial Pressure O2 451 Arterial Blood Oxygen Content 16.7 Arterial Blood Carboxyhemoglobin 1.3 Arterial Blood Methemoglobin 0.7 Blood Gas Hemoglobin 11.3 Oxygen Delivery Device VENT Blood Gas Ventilator Setting PRVC/AC Blood Gas Inspired Oxygen 100 Urine Color YELLOW Urine Turbidity CLEAR Urine pH 5.5 Urine Specific Clayton 1.008 Urine Protein TRACE Urine Glucose (UA) NEG Urine Ketones NEG Urine Occult Blood NEG Urine Nitrite NEG Urine Bilirubin NEG Urine Urobilinogen LESS THAN 2.0 Urine Leukocyte Esterase NEG Urine WBC LESS THAN 1 Urine Squamous Epithelial Cells <1 Urine Bacteria RARE Urine Hyaline Casts 2 Microscopic Urinalysis Comment CATH-CULTURE IND Stool C. difficile Toxin (PCR) POSITIVE Stl C. difficile Toxin Epiderm 027 PRESUMPTIVE NEGATIVE Nasal Screen MRSA (PCR) MRSA NOT DETECTED Test 09/24/17 10:26 Hemoglobin 10.6 Troponin I LESS THAN 0.02 Date/Time Source Procedure Growth Status 09/24/17 05:47 Sputum Endotracheal Gram Stain Pending Received 09/24/17 05:47 Sputum Endotracheal Sputum Culture Pending Received 09/24/17 03:07 Urine Catheterized Urine Urine Culture Pending Received Result Diagram: 09/24/17 1026 09/24/17 0239 Imaging Last Impressions Chest X-Ray 09/24/17 0000 Signed Impressions: CONCLUSION: 1. Status post intubation. 2. New bilateral hazy opacity of concern for pulmonary edema. 3. Mild cardiomegaly. Abdomen Ultrasound 09/24/17 0000 Signed Impressions: CONCLUSION: 1. 1.8 cm hypoechoic subcapsular mass in the right lobe of the liver. This may represent focal fatty infiltration. However, differential considerations inclu de hemangioma and malignancy. Further characterization may be performed with MR I exam on an outpatient basis as clinically warranted. 2. Slightly prominent common bile duct and pancreatic duct without focal abnor mality. This is nonspecific although a partial ampullary obstruction cannot be entirely excluded. 3. Gallbladder polyps versus adherent stones. No sonographic evidence for chol ecystitis. 4. Trace ascites and small bilateral pleural effusions. Septic Shock Reassessment Septic shock perfusion: reassessment completed Caprini VTE Risk Assessment Caprini VTE Risk Assessment: Mod/High Risk (score >= 2) Caprini Risk Assessment Model Point Value = 1 Point Value = 2 Point Value = 3 Point Value = 5 Age 41-60 Minor surgery BMI > 25 kg/m2 Swollen legs Varicose veins or History of unexplained or recurrent spontaneous Oral contraceptives or hormone replacement Sepsis (< 1 month) Serious lung disease, including pneumonia (< 1 month) Abnormal pulmonary function Acute myocardial infarction Congestive heart failure (< 1 month) History of inflammatory bowel disease Medical patient at bed rest Age 61-74 Arthroscopic surgery Major open surgery (> 45 min) Laparoscopic surgery (> 45 min) Malignancy Confined to bed (> 72 hours) Immobilizing plaster cast Central venous access Age >= 75 History of VTE Family history of VTE Factor V Leiden Prothrombin [id number] Lupus anticoagulant Anticardiolipin antibodies Elevated serum homocysteine Heparin-induced thrombocytopenia Other congenital or acquired thrombophilia Stroke (< 1 month) Elective arthroplasty Hip, pelvis, or leg fracture Acute spinal cord injury (< 1 month) Prophylaxis Regimen Total Risk Factor Score Risk Level Prophylaxis Regimen 0-1 Low Early ambulation 2 Moderate Order ONE of the following: *Sequential Compression Device (SCD) *Heparin 5000 units SQ BID 3-4 Higher Order ONE of the following medications: *Heparin 5000 units SQ TID *Enoxaparin/Lovenox 40 mg SQ daily (WT < 150 kg, CrCl > 30 mL/min) *Enoxaparin/Lovenox 30 mg SQ daily (WT < 150 kg, CrCl > 10-29 mL/min) *Enoxaparin/Lovenox 30 mg SQ BID (WT < 150 kg, CrCl > 30 mL/min) AND/OR *Sequential Compression Device (SCD) 5 or more Highest Order ONE of the following medications: *Heparin 5000 units SQ TID (Preferred with Epidurals) *Enoxaparin/Lovenox 40 mg SQ daily (WT < 150 kg, CrCl > 30 mL/min) *Enoxaparin/Lovenox 30 mg SQ daily (WT < 150 kg, CrCl > 10-29 mL/min) *Enoxaparin/Lovenox 30 mg SQ BID (WT < 150 kg, CrCl > 30 mL/min) AND *Sequential Compression Device (SCD) Assessment and Plan Problem List: (1) FEN/GI/PPx (2) Atrial fibrillation with RVR ICD Code: I48.91 - Unspecified atrial fibrillation Status: Acute (3) C. difficile colitis ICD Code: A04.72 - Enterocolitis due to Clostridium difficile, not specified as recurrent (4) Chronic kidney disease (CKD) ICD Code: N18.9 - Chronic kidney disease, unspecified (5) Hypertension ICD Code: I10 - Essential (primary) hypertension Status: Chronic (6) Tobacco use disorder ICD Code: F17.200 - Nicotine dependence, unspecified, uncomplicated (7) Dyspnea ICD Code: R06.00 - Dyspnea, unspecified (8) Diabetes ICD Code: E11.9 - Type 2 diabetes mellitus without complications (9) CAD (coronary artery disease) ICD Code: I25.10 - Atherosclerotic heart disease of upper [place] coronary artery without angina pectoris Status: Chronic (10) COPD (chronic obstructive pulmonary disease) ICD Code: J44.9 - Chronic obstructive pulmonary disease, unspecified Status: Chronic (11) CHF (congestive heart failure) ICD Code: I50.9 - Heart failure, unspecified Status: Chronic (12) Respiratory failure ICD Code: J96.90 - Respiratory failure, unspecified, unspecified whether with hypoxia or hypercapnia Status: Acute Assessment and Plan 72 YO female w/PMHx COPD, CAD s/p 3 vessel CABG (w/2 stents) August 2017, Afib with RVR, HLD, DM and GERD who presents to the ED with SOB and in Afib RVR at rate to 170 who failed prone CPAP and was intubated and admitted to ICU with Afib w/RVR, CHF, pulmonary edema, and acute hypoxic respiratory failure; subsequently found C Diff positive on PCR. Impression: A. fib with RVR Acute respiratory failure on mechanical ventilation Suspected pulmonary edema C. difficile positive ABG pH 7.35 / PCO2 59 / PO2 451 / HCO3 16.7 - acute respiratory acidosis CBC wnl CMP showing Cr 1.65 / GFR est 30; serum glucose 182; slightly elevated LFTs AST 50 / ALT 63 / AP 136 with normal Lipase EKG non-specific ST changes; AFib/RVR, low voltage extremity leads; QTc 430 BNP 692 Troponin <0.02 x2 UA with rare bacteria, 2 hyaline casts, trace protein; urine cx pending CXR showing bilateral hazy opacities with pulm edema and mild cardiomegaly sputum cx pending C Diff tox PCR positive PLAN: 1. Respiratory pt presenting with respiratory acidosis and acute respiratory failure in setting of low cardiac reserve and failed prone CPAP in ED -Pt intubated and sedated with versed, etomidate, fentanyl, propofol: versed 2mg /hr, fentanyl 50mcg/hr, propofol 7.2ml/hr -administered Rocephin 1g IV in ED -Vent settings: PRVC/AC with TV 0.45L/14bpm/5.5L/min/PEEP 5.0/FiO2 45% - pulse ox 100% -CXR showing bilateral hazy opacities with pulm edema and mild cardiomegaly -Daily CPAP trials with goal of extubation -Hold home Albuterol due to RVR -Duonebs scheduled q6h, with PRN q4h -Continue home Advair 1 puff BID -Hold steroids due to normal lung exam/no crackles -CXR tomorrow 2. Cardiovascular pt presenting with uncontrolled AFib with RVR to 170; EKG w/AFib RVR, non- specific ST changes; ECHO 09/10/17 EF 35-40% w/mod-severe MR, TR, LV dysfunction -Rate controlled in low 90s on Diltiazem 60mg q6h per OG-tube -Hold home dose Dilt 240mg; possible non-compliance -Hold home dose Lasix 20mg daily -Lasix 40mg IV due to pulm edema, CHF -Isosorbide nitrate topical PRN -Serial troponins x2, r/o ischemia -Cardiology consult, Dr Madden -Continue home dose medications: -Metoprolol tartrate 50mg q12h -Eliquis 2.5mg BID -Plavix 75mg daily -Brilinta 90mg BID -Atorvastatin 40mg qhs -Hold home Lisinopril 10mg daily -Hold home Isosorbide nitrate ER 30mg 3. GI/Liver -C Diff positive on PCR; no reported diarrhea thus far; possible maroon stool reported; Hgb 10.6 -Discontinue Flagyl 500mg IV q8h started in ED -Start Vancomycin 125mg via OG-tube q6h -Stop Protonix 40mg IV daily -Start Pepcid 20mg liquid daily via OG tube -Contact precautions -Elevated LFTs with normal Lipase -Abdominal/Liver US -GI consulted 4. Endocrine/DM -Hold home Metformin -Low SSI -Accuchecks 5. /Renal / CKD -Cr 1.65 on admission, close to known baseline this year -Hold Lisinopril to avoid hypotension -Caution on IV fluids due to presenting with pulm edema 6. Neuro -Neuro checks per protocol 7. FEN/GI/PPx: Fluids: holding for now Electrolytes: wnl Nutrition: Start Glucerna 1.5 at 30cc/hr and advance towards goal of 60cc/hr GI: Pepcid as above PPx: Plavix, Eliquis, Brilinta as above PRN bowel regimen; scheduled Neyda-colace discontinued due to C Diff positive Tylenol 650mg q6h pain or fever >100.4 PT/OT/ST tomorrow Addendum: Patient seen and examined earlier. Discussed findings, assessment and plan with Dr. Hay Cervantes. Agree with above note. Condition remains critical. Patient remains intubated on mechanical ventilation for acute respiratory failure, pulmonary edema and A. fib with RVR. Awaiting cardiology and GI evaluation. Time spent on critical care excluding procedures 45 minutes Code Status FULL Discussed Condition With Dr Washington Problem Qualifiers (1) CHF (congestive heart failure): Qualified Codes: I50.9 - Heart failure, unspecified (2) Respiratory failure: Qualified Codes: J96.00 - Acute respiratory failure, unspecified whether with hypoxia or hypercapnia Hay Cervantes MD R1 September 24, 2017 14:02 Jean Washington MD September 24, 2017 16:36
[2017-09-24] MEDS: RESP: ALBUTEROL 2.5 MG/IPRATROPIUM 0.5 MG NEB (SCH) INH ×2 (15:28→20:27)
--- NOTE | 2017-09-24 18:34 | MB ---
cc: Marco Vaca MD DATE: 09/24/2017 REASON FOR CONSULTATION: For evaluation of atrial fibrillation and coronary artery disease. HISTORY OF PRESENT ILLNESS: Zuleima Sosa is a 72-year-old woman followed by Dr. Madden. She has known coronary artery disease. I actually did her last cardiac procedure, which was a complex Rotablator stent of her left main and circumflex artery because her circumflex graft had closed. This was done 08/05/2017. I saw that she was in after that and there was big confusion on her medications. She was on Brilinta, but apparently is now on Plavix and comes in now with respiratory failure. She had to be intubated. There is no history I can obtain from the patient at this point while she is intubated, apparently developed acute respiratory distress. Chest x-ray showed some mild failure. The patient is noted to have COPD, hypertensive heart disease. Her last echocardiogram was on 09/10/2017, which showed ejection fraction 35-40%, severe mitral regurgitation, moderate tricuspid regurgitation. PAST MEDICAL HISTORY: Includes coronary artery disease, atrial fibrillation, carotid disease, chronic back pain, chronic kidney disease, diabetes, hyperlipidemia, hypertension, previous non-STEMI, obesity, arthritis, peripheral arterial disease, history of smoking. I do not know whether she is still smoking or not. PAST SURGICAL HISTORY: Includes her cardiac procedures, previous bypass surgery in 2005, foot surgery, hysterectomy, right knee replacement, peripheral stents in the past. SOCIAL HISTORY: Her last office visit, she was still smoking. PHYSICAL EXAMINATION: GENERAL: Reveals an obese white female, intubated. HEENT: Unremarkable. NECK: No obvious JVD. CHEST: Shows diminished breath sounds. There are a few rhonchi. CARDIAC: S1, S2, regular rate and rhythm, 1/6 systolic murmur. ABDOMEN: Soft. EXTREMITIES: Reveal trace edema. LABORATORY DATA AND IMAGING: Cardiac enzymes are negative. Creatinine is 1.65. AST, ALT mildly elevated. Abnormal chest x-ray seen. She is apparently guaiac positive. Abdominal ultrasound results noted. Chest x-ray shows bilateral haziness, opacity concerning for pulmonary edema. She has received IV Lasix. IMPRESSION AND PLAN: A combination of congestive heart failure, chronic obstructive pulmonary disease exacerbation. No evidence for myocardial infarction. Respiratory status is improving. Her atrial fibrillation was apparently fast before, but now under control. Further therapy to be determined. MD MELL Landon/Jamaal , 04:52 PM , 05:11 PM
[2017-09-24] MEDS: METOPROLOL TARTRATE 50 MG TAB PO SCH (20:19)
[2017-09-24] MEDS ORDERED: APIXABAN 2.5 MG TABLET PO SCH (21:00)
[2017-09-24] MEDS: TICAGRELOR 90 MG TAB PO SCH (21:16)
[2017-09-24] MEDS: BUDESONIDE-FORMOTEROL 160/4.5 MCG INHALER INH SCH (21:16)
[2017-09-25] VITALS (19 sets, daily range): BP systolic 108–155; BP diastolic 57–88; PULSE 72–155; RESP 14–28; TEMP 98.5–98.9; O2SAT 92–100
[2017-09-25] MEDS: DILTIAZEM HCL 60 MG TAB OG-TUBE SCH ×4 (00:12→16:53)
[2017-09-25] MEDS: RESP: ALBUTEROL 2.5 MG/IPRATROPIUM 0.5 MG NEB (SCH) INH ×4 (03:26→21:28)
[2017-09-25] MEDS: CHLORHEXIDINE GLUCONATE 2 % 1 PACK (2 CLOTHS) TOP SCH (04:00)
--- NOTE | 2017-09-25 06:17 | RADRPT ---
EXAM DATE: 09/25/2017 6:10 AM EDT AGE/SEX: 72 years / Female INDICATIONS: Evaluate heart size. CLINICAL DATA: This is the patient's initial encounter. Patient reports that signs and symptoms have been present for 1 day and indicates a pain score of Nonresponsive. MEDICAL/SURGICAL HISTORY: . Chronic obstructive pulmonary disease. Diabetes mellitus type II. C ongestive heart failure. . AAA Coronary artery stent. Abdominal aortic aneurysm repair. CABG. COMPARISON: [facility] [place], CHEST SINGLE AP, 09/24/2017. . FINDINGS: The ET tube and NG tube are well placed. The patient is status post sternotomy. The heart size is nor mal. The lungs are grossly clear. CONCLUSION: ET tube and NG tube in good position. The heart size is within normal limits for an AP portable chest x-ray. Electronically signed by: Jhony Cabrera MD 09/25/2017 6:16 AM EDT
--- NOTE | 2017-09-25 07:27 | EKG ---
Date Performed: 09/24/2017 Time Performed: 08:16:28 PTAGE: 72 years EKG: Atrial fibrillation. Extensive ST-T changes are nonspecific Low QRS voltages in limb leads Abnormal ECG PREVIOUS TRACING : 09/24/2017 02.23 DOCTOR: Ruby Miramontes Interpretating Date/Time 09/25/2017 07:22:19
--- NOTE | 2017-09-25 07:34 | EKG ---
Date Performed: 09/24/2017 Time Performed: 02:23:18 PTAGE: 72 years EKG: ATRIAL FIBRILLATION WITH RAPID VENTRICULAR RESPONSE ST DEVIATION AND MODERATE T-WAVE ABNORM ALITY, CONSIDER LATERAL ISCHEMIA ABNORMAL ECG INTERPRETATION BASED ON A DEFAULT AGE OF 40 YEARS NO PREVIOUS TRACING DOCTOR: Ruby Miramontes Interpretating Date/Time 09/25/2017 07:29:29
[2017-09-25] MEDS: ATORVASTATIN 40 MG TAB PO SCH (08:14)
[2017-09-25] MEDS: VANCOMYCIN 500 MG VIAL (FOR ORAL USE ONLY) PO SCH ×4 (08:14→20:35)
[2017-09-25] MEDS: TICAGRELOR 90 MG TAB PO SCH ×2 (08:14→20:34)
[2017-09-25] MEDS: FAMOTIDINE 20 MG TAB NG SCH (08:14)
[2017-09-25] MEDS: CLOPIDOGREL 75 MG TAB PO SCH (08:15)
[2017-09-25] MEDS: BUDESONIDE-FORMOTEROL 160/4.5 MCG INHALER INH SCH ×2 (08:15→20:34)
[2017-09-25] MEDS: METOPROLOL TARTRATE 50 MG TAB PO SCH ×2 (08:15→20:34)
[2017-09-25] MEDS: SODIUM CHLORIDE 0.9% FLUSH 10 ML FLUSH IV FLUSH SCH ×2 (08:16→20:35)
[2017-09-25 11:19] LABS: BASOPHIL # 0.1 TH/MM3 (0-0.2); BASOPHIL % 0.7 % (0.0-2.0); EOSINOPHIL # 0.4 TH/MM3 (0-0.4); EOSINOPHIL % 5.1 % (0.0-4.0); HEMATOCRIT 37.8 % (35.0-46.0); LYMPHOCYTE # 1.1 TH/MM3 (1.0-4.8); MEAN CELL VOLUME 95.4 FL (80.0-100.0); MEAN CORPUSCULAR HEMOGLOBIN 30.3 PG (27.0-34.0); MEAN CORPUSCULAR HGB CONC 31.8 % (32.0-36.0); MEAN PLATELET VOLUME 8.8 FL (7.0-11.0); MONO % 9.4 % (0.0-8.0); MONOCYTE # 0.7 TH/MM3 (0-0.9); NEUT % 69.8 % (16.0-70.0); PLATELET COUNT 286 TH/MM3 (150-450); RED BLOOD COUNT 3.96 MIL/MM3 (4.00-5.30); RED CELL DISTRIBUTION WIDTH 15.3 % (11.6-17.2); WHITE BLOOD COUNT 7.2 TH/MM3 (4.0-11.0)
[2017-09-25 11:46] LABS: CARCINOEMBRYONIC ANTIGEN 1.9 NG/ML (0.2-5.0)
[2017-09-25 11:47] LABS: ALBUMIN 3.3 GM/DL (3.4-5.0); ALKALINE PHOSPHATASE 131 U/L (45-117); ALT (GPT) 44 U/L (10-53); AST (GOT) 26 U/L (15-37); BICARBONATE 26.1 MEQ/L (21.0-32.0); BLOOD UREA NITROGEN 18 MG/DL (7-18); CALCIUM 9.2 MG/DL (8.5-10.1); CHLORIDE 104 MEQ/L (98-107); CREATININE 1.46 MG/DL (0.50-1.00); GLOMERULAR FILTRATION RATE 35 ML/MIN (>89); GLUCOSE,RANDOM 112 MG/DL (74-106); MAGNESIUM 2.2 MG/DL (1.5-2.5); PHOSPHORUS 2.6 MG/DL (2.5-4.9); SODIUM (NA) 139 MEQ/L (136-145); TOTAL BILIRUBIN ADULT 0.6 MG/DL (0.2-1.0); TOTAL PROTEIN 7.5 GM/DL (6.4-8.2)
--- NOTE | 2017-09-25 12:17 | HHI.GIFU ---
Subjective Remarks Ventilator support with orogastric tube Sedated but does arouse briefly to tactile stimulation Current hemoglobin 12, WBC count 7.2 Afebrile (Shirlene Avila) Objective Vitals I&O Vital Signs Date Time Temp Pulse Resp B/P (MAP) Pulse Ox O2 Delivery O2 Flow Rate FiO2 09/25/17 12:00 87 09/25/17 11:51 100 35 09/25/17 10:00 93 09/25/17 09:30 100 35 09/25/17 09:30 35 09/25/17 08:00 98.8 76 14 126/61 (82) 100 09/25/17 08:00 76 09/25/17 08:00 35 09/25/17 07:54 100 35 09/25/17 06:00 77 09/25/17 04:35 100 35 09/25/17 04:00 73 09/25/17 04:00 35 09/25/17 04:00 98.9 73 23 108/57 (74) 100 09/25/17 02:00 72 09/25/17 01:06 100 40 09/25/17 00:00 75 09/25/17 00:00 40 09/25/17 00:00 98.8 75 14 125/62 (83) 100 09/24/17 23:08 100 40 09/24/17 22:00 64 09/24/17 20:30 100 40 09/24/17 20:00 40 09/24/17 20:00 98.3 76 14 125/73 (90) 100 09/24/17 20:00 76 09/24/17 18:00 65 09/24/17 16:00 63 09/24/17 16:00 97.5 63 21 111/64 (80) 100 09/24/17 16:00 100 09/24/17 15:28 100 40 09/24/17 14:00 82 I/O 09/24/17 09/24/17 09/24/17 09/25/17 09/25/17 09/25/17 06:59 14:59 22:59 06:59 14:59 22:59 Intake Total 100 ml 428.4 ml 567 ml Output Total 1350.0 ml 425.0 ml 0 ml Balance 100 ml -921.6 ml 142.0 ml 0 ml Intake IV Total 100 ml 283.4 ml Tube Feeding 145 ml 40 ml Tube Irrigant 307 ml Other 220 ml Output Urine Total 1350 ml 325 ml Tube Feeding Residual Discard 0 ml 100.0 ml 0 ml # Bowel Movements 0 Laboratory Laboratory Tests Test 09/24/17 14:54 09/24/17 20:15 09/25/17 10:48 Troponin I LESS THAN 0.02 LESS THAN 0.02 Hemoglobin 13.0 12.0 Hepatitis A IgM Antibody NONREACTIVE Hepatitis B Surface Antigen NONREACTIVE Hepatitis B Core IgM Antibody NONREACTIVE Hepatitis C IgG Antibody NONREACTIVE White Blood Count 7.2 Red Blood Count 3.96 Hematocrit 37.8 Mean Corpuscular Volume 95.4 Mean Corpuscular Hemoglobin 30.3 Mean Corpuscular Hemoglobin Concent 31.8 Red Cell Distribution Width 15.3 Platelet Count 286 Mean Platelet Volume 8.8 Neutrophils (%) (Auto) 69.8 Lymphocytes (%) (Auto) 15.0 Monocytes (%) (Auto) 9.4 Eosinophils (%) (Auto) 5.1 Basophils (%) (Auto) 0.7 Neutrophils # (Auto) 5.0 Lymphocytes # (Auto) 1.1 Monocytes # (Auto) 0.7 Eosinophils # (Auto) 0.4 Basophils # (Auto) 0.1 CBC Comment DIFF FINAL Differential Comment Blood Urea Nitrogen 18 Creatinine 1.46 Random Glucose 112 Total Protein 7.5 Albumin 3.3 Calcium Level 9.2 Phosphorus Level 2.6 Magnesium Level 2.2 Alkaline Phosphatase 131 Aspartate Amino Transf (AST/SGOT) 26 Alanine Aminotransferase (ALT/SGPT) 44 Total Bilirubin 0.6 Sodium Level 139 Potassium Level 4.3 Chloride Level 104 Carbon Dioxide Level 26.1 Anion Gap 9 Estimat Glomerular Filtration Rate 35 Tumor Marker Alpha Fetoprotein 2.1 Carcinoembryonic Antigen 1.9 Date/Time Source Procedure Growth Status 09/24/17 05:47 Sputum Endotracheal Gram Stain - Final Resulted 09/24/17 05:47 Sputum Endotracheal Sputum Culture - Preliminary LIGHT GROWTH NORMAL RESPIRATORY KEMAL... Resulted 09/24/17 03:07 Urine Catheterized Urine Urine Culture - Preliminary NO GROWTH IN 24 HOURS. Resulted Imaging Last Impressions Chest X-Ray 09/25/17 0600 Signed Impressions: CONCLUSION: ET tube and NG tube in good position. The heart size is within normal limits fo r an AP portable chest x-ray. Abdomen Ultrasound 09/24/17 0000 Signed Impressions: CONCLUSION: 1. 1.8 cm hypoechoic subcapsular mass in the right lobe of the liver. This may represent focal fatty infiltration. However, differential considerations inclu de hemangioma and malignancy. Further characterization may be performed with MR I exam on an outpatient basis as clinically warranted. 2. Slightly prominent common bile duct and pancreatic duct without focal abnor mality. This is nonspecific although a partial ampullary obstruction cannot be entirely excluded. 3. Gallbladder polyps versus adherent stones. No sonographic evidence for chol ecystitis. 4. Trace ascites and small bilateral pleural effusions. Physical Exam HEENT: Mild facial edema, normocephalic; atraumatic; ventilator and gastric tube support NECK: Neck is supple, short obese CHEST: Diminished breath sounds CARDIAC: RRR ABDOMEN: Soft, large, obese, round, mild distention, positive bowel sounds EXTREMITIES: Mild lower extremity edema. 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 difficile colitis ICD Codes: A04.72 - Enterocolitis due to Clostridium difficile, not specified as recurrent Plan 72-year-old morbidly obese female admitted on 09/24/2017 with shortness of breath and rapid atrial fib which required intubation on admission. She is currently being managed in the intensive care unit now with a controlled heart rate of atrial fib 81 and on sedation and ventilator management. Currently patient has some mild elevated LFTs which is probably related to shock liver and she is also positive for C. difficile. Current hemoglobin on admission 11.6 now 10.6. Was noted on admission that she had maroon stools and had been on Eliquis and GI was consulted. According to the nurses she has had no further maroon stools, and Eliquis is on hold. Patient was discharged sometime back in August to a [facility] and is now returned back to the hospital positive for C. difficile. Current abdomen is soft round, obese,, NG tube has some small red specks and clear serous drainage noted and connected to suction. 09/25/2017, abdominal ultrasound noted on 09/24/2017 which showed 1.8 hyper in miotic subcapsular mass in the right lobe of liver this may be fatty liver infiltrations but needs to consider hemangioma or malignancy further characteristics may be performed per MR exam on an outpatient basis if warranted. Slightly prominent common bile duct and pancreatic duct without focal abnormality. This is nonspecific although a partial ampullary obstruction cannot be entirely excluded. Gallbladder polyps versus adherent stones no evidence of cholecystitis. Trace of ascites and small bilateral pleural effusions. Labs include alpha-fetoprotein 2.1 LFTs normal with AST 26, ALT 44, alkaline phosphatase 131, WBC count 7.2, hemoglobin 12. Patient may have cystic mass versus hemangioma and will need further evaluation once she is stable. Tumor markers normal. No further maroon stools seen since Eliquis has been held. No family present Plan N.p.o. Flagyl IV, PPI Antiemetics Patient will need CT or MRI on to evaluate mass once she is stable Monitor for any further bleeding or maroon stools , Hemoccult if needed Transfuse as necessary Monitor labs, Further recommendations to follow Patient was seen per myself and Dr. Gleason, note was written on his behalf (Shirlene Avila) Physician Comments Patient seen and examined Agree with above Continue with current supportive care Monitor labs (Tomasz Gleason MD) Shirlene Avila September 25, 2017 12:17 Tomasz Gleason MD September 25, 2017 13:22
[2017-09-25 12:23] LABS: CA 125 64.7 U/ML (0.0-30.2)
--- NOTE | 2017-09-25 14:24 | HHI.CCPN ---
Subjective Remarks/Hospital Course 09/23: Ms Sosa is a 72 YO female w/PMHx COPD, CAD s/p 3 vessel CABG 2009 and left heart cath (w/2 stents) August 2017, Afib with RVR, HLD, DM and GERD who presents to the ED with SOB and in Afib RVR at rate to 170 who failed prone CPAP , desaturated to 68%, then agreed to intubation. Pt was intubated and sedated with versed, etomidate, fentanyl and propofol. S/p intubation pt satted at 100% , RVR reduced to 120, and then to 90s this morning. Pt unable to provide HPI or ROS due to resp distress last night, then intubation/sedation. Pt had 3 vessel CABG of left main, circumflex, LAD with two stents placed in August. Follow up ECHO 09/10/17 shows EF 35-40% mild LV dilation and global dysfunction, normal RV , LA mod-severe dilation with mod-severe MR, RA dilation with moderate TR, mild aortic regurg, and pulm artery pressure 44.3 mmHg. Pt is followed by Dr Madden. 09/24: Sedated, orally intubated on mechanical ventilation. Objective Vital Signs Date Time Temp Pulse Resp B/P (MAP) Pulse Ox O2 Delivery O2 Flow Rate FiO2 09/25/17 12:00 35 09/25/17 12:00 98.5 87 16 152/77 (102) 100 09/24/17 05:05 Ventilator Intake and Output 09/25/17 09/25/17 09/26/17 08:00 16:00 00:00 Intake Total 567 ml Output Total 385.0 ml Balance 182.0 ml Result Diagram: 09/25/17 1048 09/25/17 1048 Imaging Last Impressions Chest X-Ray 09/24/17 0000 Signed Impressions: CONCLUSION: 1. Status post intubation. 2. New bilateral hazy opacity of concern for pulmonary edema. 3. Mild cardiomegaly. Abdomen Ultrasound 09/24/17 0000 Signed Impressions: CONCLUSION: 1. 1.8 cm hypoechoic subcapsular mass in the right lobe of the liver. This may represent focal fatty infiltration. However, differential considerations inclu de hemangioma and malignancy. Further characterization may be performed with MR I exam on an outpatient basis as clinically warranted. 2. Slightly prominent common bile duct and pancreatic duct without focal abnor mality. This is nonspecific although a partial ampullary obstruction cannot be entirely excluded. 3. Gallbladder polyps versus adherent stones. No sonographic evidence for chol ecystitis. 4. Trace ascites and small bilateral pleural effusions. Objective Remarks HEENT/ Neuro: Sedated, orally intubated, Pallor present, no icterus, tongue/ mucosa dry Neck: No JVD Chest/Pulm: on mech vent, good air entry bilaterally, no wheezing or crackles CVS: S1-S2 regular, no murmur GI/abdomen: soft, nontender, bowel sounds sluggish Extremities: warm bilaterally, no edema A/P Problem List: (1) FEN/GI/PPx (2) Atrial fibrillation with RVR ICD Code: I48.91 - Unspecified atrial fibrillation Status: Acute (3) C. difficile colitis ICD Code: A04.72 - Enterocolitis due to Clostridium difficile, not specified as recurrent (4) Chronic kidney disease (CKD) ICD Code: N18.9 - Chronic kidney disease, unspecified (5) Hypertension ICD Code: I10 - Essential (primary) hypertension Status: Chronic (6) Tobacco use disorder ICD Code: F17.200 - Nicotine dependence, unspecified, uncomplicated (7) Dyspnea ICD Code: R06.00 - Dyspnea, unspecified (8) Diabetes ICD Code: E11.9 - Type 2 diabetes mellitus without complications (9) CAD (coronary artery disease) ICD Code: I25.10 - Atherosclerotic heart disease of [place] coronary artery without angina pectoris Status: Chronic (10) COPD (chronic obstructive pulmonary disease) ICD Code: J44.9 - Chronic obstructive pulmonary disease, unspecified Status: Chronic (11) CHF (congestive heart failure) ICD Code: I50.9 - Heart failure, unspecified Status: Chronic (12) Respiratory failure ICD Code: J96.90 - Respiratory failure, unspecified, unspecified whether with hypoxia or hypercapnia Status: Acute Assessment and Plan 72 YO female w/PMHx COPD, CAD s/p 3 vessel CABG (w/2 stents) August 2017, Afib with RVR, HLD, DM and GERD who presents to the ED with SOB and in Afib RVR at rate to 170 who failed prone CPAP and was intubated and admitted to ICU with Afib w/RVR, CHF, pulmonary edema, and acute hypoxic respiratory failure; subsequently found C Diff positive on PCR. Impression: A. fib with RVR Acute respiratory failure on mechanical ventilation Suspected pulmonary edema C. difficile positive ABG pH 7.35 / PCO2 59 / PO2 451 / HCO3 16.7 - acute respiratory acidosis CBC wnl CMP showing Cr 1.65 / GFR est 30; serum glucose 182; slightly elevated LFTs AST 50 / ALT 63 / AP 136 with normal Lipase EKG non-specific ST changes; AFib/RVR, low voltage extremity leads; QTc 430 BNP 692 Troponin <0.02 x2 UA with rare bacteria, 2 hyaline casts, trace protein; urine cx pending CXR showing bilateral hazy opacities with pulm edema and mild cardiomegaly sputum cx C Diff tox PCR positive PLAN: 1. Respiratory pt presenting with respiratory acidosis and acute respiratory failure in setting of low cardiac reserve and failed prone CPAP in ED -Pt intubated and sedated with versed, etomidate, fentanyl, propofol: versed 2mg /hr, fentanyl 50mcg/hr, propofol 7.2ml/hr -administered Rocephin 1g IV in ED -Vent settings: PRVC/AC with TV 0.45L/14bpm/5.5L/min/PEEP 5.0/FiO2 45% - pulse ox 100% -CXR showing bilateral hazy opacities with pulm edema and mild cardiomegaly -Daily CPAP trials with goal of extubation -Hold home Albuterol due to RVR -Duonebs scheduled q6h, with PRN q4h -Continue home Advair 1 puff BID -Hold steroids due to normal lung exam/no crackles -CXR tomorrow 2. Cardiovascular pt presenting with uncontrolled AFib with RVR to 170; EKG w/AFib RVR, non- specific ST changes; ECHO 09/10/17 EF 35-40% w/mod-severe MR, TR, LV dysfunction -Rate controlled in low 90s on Diltiazem 60mg q6h per OG-tube -Hold home dose Dilt 240mg; possible non-compliance -Hold home dose Lasix 20mg daily -Lasix 40mg IV due to pulm edema, CHF -Isosorbide nitrate topical PRN -Serial troponins x2, r/o ischemia -Cardiology consulted-Dr. Vaca following. Defer antiplatelet therapy to cardiology -Continue home dose medications: -Metoprolol tartrate 50mg q12h -Eliquis 2.5mg BID -Plavix 75mg daily -Brilinta 90mg BID -Atorvastatin 40mg qhs -Hold home Lisinopril 10mg daily -Hold home Isosorbide nitrate ER 30mg 3. GI/Liver -C Diff positive on PCR; no reported diarrhea thus far; possible maroon stool reported; Hgb 10.6 -Discontinue Flagyl 500mg IV q8h started in ED -Start Vancomycin 125mg via OG-tube q6h -Stop Protonix 40mg IV daily -Start Pepcid 20mg liquid daily via OG tube -Contact precautions -Elevated LFTs with normal Lipase -Abdominal/Liver US -GI consulted 4. Endocrine/DM -Hold home Metformin -Low SSI -Accuchecks 5. /Renal / CKD -Cr 1.65 on admission, close to known baseline this year -Hold Lisinopril to avoid hypotension -Caution on IV fluids due to presenting with pulm edema 6. Neuro -Neuro checks per protocol 7. FEN/GI/PPx: Fluids: holding for now Electrolytes: wnl Nutrition: Start Glucerna 1.5 at 30cc/hr and advance towards goal of 60cc/hr GI: Pepcid as above PPx: Plavix, Eliquis, Brilinta as above PRN bowel regimen; scheduled Neyda-colace discontinued due to C Diff positive Tylenol 650mg q6h pain or fever >100.4 PT/OT/ST Time spent on critical care excluding procedures 35 minutes Problem Qualifiers (1) CHF (congestive heart failure): Qualified Codes: I50.9 - Heart failure, unspecified (2) Respiratory failure: Qualified Codes: J96.00 - Acute respiratory failure, unspecified whether with hypoxia or hypercapnia Jean Washington MD September 25, 2017 14:24
--- NOTE | 2017-09-25 17:26 | PD.CARD.PN ---
Subjective Subjective Remarks lethargic, not talking, extubated earlier today Objective Medications Current Medications Medications (Trade) Dose Ordered Sig/Hilda Route Start Time Stop Time Status Last Admin Propofol 100 ml @ 0 mls/hr TITRATE PRN IV 09/24/17 02:30 09/24/17 02:46 Fentanyl Citrate 250 ml @ 5 mls/hr TITRATE PRN IV 09/24/17 02:30 09/24/17 02:46 Midazolam HCl 50 ml @ 2 mls/hr TITRATE PRN IV 09/24/17 03:00 09/24/17 21:15 (NS Flush) 2 ml UNSCH PRN IV FLUSH 09/24/17 05:45 (NS Flush) 2 ml BID IV FLUSH 09/24/17 09:00 09/25/17 08:16 (Tylenol) 650 mg Q6H PRN PO 09/24/17 05:45 (Duoneb Neb) 1 ampule Q6HR NEB INH 09/24/17 10:00 09/25/17 15:20 ([facility]) 1 Q361D XX 09/24/17 05:45 09/24/17 05:45 (Chlorhexidine 2% Cloth) 3 pack Taper DAILY@04 TOP 09/25/17 04:00 09/21/18 03:59 09/25/17 04:00 (Chlorhexidine 2% Cloth) 3 pack UNSCH PRN TOP 09/24/17 05:45 (Milk Of Magnesia Liq) 30 ml Q12H PRN PO 09/24/17 05:45 (Senokot) 17.2 mg Q12H PRN PO 09/24/17 05:45 (Dulcolax Supp) 10 mg DAILY PRN RECTAL 09/24/17 05:45 (Lactulose Liq) 30 ml DAILY PRN PO 09/24/17 05:45 (Duoneb Neb) 1 ampule Q4HR NEB PRN NEB 09/24/17 12:00 (Pepcid) 20 mg DAILY NG 09/24/17 11:15 09/25/17 08:14 (Nitroglycerin 2% Oint) 0.5 inch Q8HR PRN TOPICAL 09/24/17 12:00 (Lopressor) 50 mg Q12HR PO 09/24/17 21:00 09/25/17 08:15 (Eliquis) 2.5 mg BID PO 09/24/17 21:00 Future Hold (Brilinta) 90 mg BID PO 09/24/17 21:00 09/25/17 08:14 (Lipitor) 40 mg DAILY PO 09/25/17 09:00 09/25/17 08:14 (VANCOMYCIN for oral use only) 125 mg QID PO 09/24/17 13:00 09/25/17 16:53 (Symbicort 160-4.5 Mcg Inh) 2 puff BID INH 09/24/17 21:00 09/24/17 21:16 (Cardizem) 90 mg Q6HR OG-TUBE 09/25/17 18:00 UNV Vital Signs / I&O Vital Signs Date Time Temp Pulse Resp B/P (MAP) Pulse Ox O2 Delivery O2 Flow Rate FiO2 09/25/17 16:00 98.6 105 22 155/72 (99) 99 09/25/17 16:00 105 09/25/17 14:25 99 Nasal Cannula 4.00 09/25/17 14:25 99 Nasal Cannula 4 09/25/17 14:00 111 09/25/17 12:00 35 09/25/17 12:00 98.5 87 16 152/77 (102) 100 09/25/17 12:00 87 09/25/17 11:51 100 35 09/25/17 10:00 93 09/25/17 09:30 100 35 09/25/17 09:30 35 09/25/17 08:00 98.8 76 14 126/61 (82) 100 09/25/17 08:00 76 09/25/17 08:00 35 09/25/17 07:54 100 35 09/25/17 06:00 77 09/25/17 04:35 100 35 09/25/17 04:00 73 09/25/17 04:00 35 09/25/17 04:00 98.9 73 23 108/57 (74) 100 09/25/17 02:00 72 09/25/17 01:06 100 40 09/25/17 00:00 75 09/25/17 00:00 40 09/25/17 00:00 98.8 75 14 125/62 (83) 100 09/24/17 23:08 100 40 09/24/17 22:00 64 09/24/17 20:30 100 40 09/24/17 20:00 40 09/24/17 20:00 98.3 76 14 125/73 (90) 100 09/24/17 20:00 76 09/24/17 18:00 65 I/O 09/24/17 09/24/17 09/24/17 09/25/17 09/25/17 09/25/17 07:00 15:00 23:00 07:00 15:00 23:00 Intake Total 100 ml 428.4 ml 567 ml Output Total 1350.0 ml 425.0 ml 0 ml Balance 100 ml -921.6 ml 142.0 ml 0 ml Intake IV Total 100 ml 283.4 ml Tube Feeding 145 ml 40 ml Tube Irrigant 307 ml Other 220 ml Output Urine Total 1350 ml 325 ml Tube Feeding Residual Discard 0 ml 100.0 ml 0 ml # Bowel Movements 0 Physical Exam lethargic Severely obese Chest: few wheezes CV S1S2 irr irr. no murmur heard (HS distant, Rate a little fast no edema Laboratory Laboratory Tests Test 09/24/17 20:15 09/25/17 10:48 Hemoglobin 13.0 GM/DL 12.0 GM/DL Troponin I LESS THAN 0.02 NG/ML Hepatitis A IgM Antibody NONREACTIVE Hepatitis B Surface Antigen NONREACTIVE Hepatitis B Core IgM Antibody NONREACTIVE Hepatitis C IgG Antibody NONREACTIVE White Blood Count 7.2 TH/MM3 Red Blood Count 3.96 MIL/MM3 Hematocrit 37.8 % Mean Corpuscular Volume 95.4 FL Mean Corpuscular Hemoglobin 30.3 PG Mean Corpuscular Hemoglobin Concent 31.8 % Red Cell Distribution Width 15.3 % Platelet Count 286 TH/MM3 Mean Platelet Volume 8.8 FL Neutrophils (%) (Auto) 69.8 % Lymphocytes (%) (Auto) 15.0 % Monocytes (%) (Auto) 9.4 % Eosinophils (%) (Auto) 5.1 % Basophils (%) (Auto) 0.7 % Neutrophils # (Auto) 5.0 TH/MM3 Lymphocytes # (Auto) 1.1 TH/MM3 Monocytes # (Auto) 0.7 TH/MM3 Eosinophils # (Auto) 0.4 TH/MM3 Basophils # (Auto) 0.1 TH/MM3 CBC Comment DIFF FINAL Differential Comment Blood Urea Nitrogen 18 MG/DL Creatinine 1.46 MG/DL Random Glucose 112 MG/DL Total Protein 7.5 GM/DL Albumin 3.3 GM/DL Calcium Level 9.2 MG/DL Phosphorus Level 2.6 MG/DL Magnesium Level 2.2 MG/DL Alkaline Phosphatase 131 U/L Aspartate Amino Transf (AST/SGOT) 26 U/L Alanine Aminotransferase (ALT/SGPT) 44 U/L Total Bilirubin 0.6 MG/DL Sodium Level 139 MEQ/L Potassium Level 4.3 MEQ/L Chloride Level 104 MEQ/L Carbon Dioxide Level 26.1 MEQ/L Anion Gap 9 MEQ/L Estimat Glomerular Filtration Rate 35 ML/MIN Tumor Marker Alpha Fetoprotein 2.1 NG/ML Carcinoembryonic Antigen 1.9 NG/ML CA 19-9 Antigen 19.0 U/ML CA 125 Antigen 64.7 U/ML Imaging Last 24 hours Impressions Chest X-Ray 09/25/17 0600 Signed Impressions: CONCLUSION: ET tube and NG tube in good position. The heart size is within normal limits fo r an AP portable chest x-ray. Assessment and Plan Problem List: (1) COPD (chronic obstructive pulmonary disease) ICD Codes: J44.9 - Chronic obstructive pulmonary disease, unspecified Status: Chronic (2) CAD (coronary artery disease) ICD Codes: I25.10 - Atherosclerotic heart disease of [place] coronary artery without angina pectoris Status: Chronic Plan: troponins nl (3) Tobacco use disorder ICD Codes: F17.200 - Nicotine dependence, unspecified, uncomplicated (4) Atrial fibrillation with RVR ICD Codes: I48.91 - Unspecified atrial fibrillation Status: Acute Plan: titrate diltiazem to 90mg q6h. Change Eliquis to 5mg bid based on recommended dose for age, body weight, creatinine. (5) Stented coronary artery ICD Codes: Z95.5 - Presence of coronary angioplasty implant and graft Plan: Surprised to see her on Brilinta and clopidogrel at same time. Stop clopidogrel. If she needs to switch to clopidogrel in future, would wait 24 hours after last dose of Brilinta and then load her with 600mg of clopidogrel. For now advise using Brilinta. Marco Vaca MD September 25, 2017 17:26
[2017-09-25] MEDS ORDERED: DILTIAZEM HCL 60 MG TAB OG-TUBE SCH (18:00)
[2017-09-25] MEDS ORDERED: DILTIAZEM HCL 30 MG TAB PO ONE (18:15)
[2017-09-25] MEDS: APIXABAN 5 MG TABLET PO SCH (20:34)
[2017-09-25] MEDS: DILTIAZEM HCL 90 MG TAB OG-TUBE SCH (23:45)
[2017-09-25] MEDS: MORPHINE SULFATE 4 MG/ML INJ IV PUSH PRN (23:45)
[2017-09-26] VITALS (37 sets, daily range): BP systolic 107–199; BP diastolic 56–94; PULSE 58–119; RESP 12–37; TEMP 97.6–98.3; O2SAT 90–100
[2017-09-26] MEDS: RESP: ALBUTEROL 2.5 MG/IPRATROPIUM 0.5 MG NEB (SCH) INH ×4 (03:10→21:19)
[2017-09-26] MEDS: CHLORHEXIDINE GLUCONATE 2 % 1 PACK (2 CLOTHS) TOP SCH (04:00)
[2017-09-26] MEDS: MORPHINE SULFATE 4 MG/ML INJ IV PUSH PRN (04:12)
[2017-09-26] MEDS: DILTIAZEM HCL 90 MG TAB OG-TUBE SCH ×3 (06:32→18:00)
--- NOTE | 2017-09-26 08:21 | PD.CARD.PN ---
Subjective Subjective Remarks Denies CP, dyspnea, dizziness, palpitations, orthopnea. Objective Medications Item Value Date Time Diltiazem HCl 90 mg 09/26/17 0000 (Cardizem) Q6HR/OG-TUBE 09/26/17 0632 Apixaban 5 mg 09/25/17 2100 (Eliquis) BID/PO 09/25/172033 Atorvastatin 40 mg 09/25/17 0900 Calcium DAILY/PO 09/25/17 0814 (Lipitor) Metoprolol 50 mg 09/24/17 2100 Tartrate Q12HR/PO 09/25/172033 (Lopressor) Ticagrelor 90 mg 09/24/17 2100 (Brilinta) BID/PO 09/25/172033 Current Medications Medications (Trade) Dose Ordered Sig/Hilda Route Start Time Stop Time Status Last Admin Propofol 100 ml @ 0 mls/hr TITRATE PRN IV 09/24/17 02:30 09/24/17 02:46 Fentanyl Citrate 250 ml @ 5 mls/hr TITRATE PRN IV 09/24/17 02:30 09/24/17 02:46 Midazolam HCl 50 ml @ 2 mls/hr TITRATE PRN IV 09/24/17 03:00 09/24/17 21:15 (NS Flush) 2 ml UNSCH PRN IV FLUSH 09/24/17 05:45 (NS Flush) 2 ml BID IV FLUSH 09/24/17 09:00 09/25/17 20:35 (Tylenol) 650 mg Q6H PRN PO 09/24/17 05:45 (Duoneb Neb) 1 ampule Q6HR NEB INH 09/24/17 10:00 09/26/17 03:10 [place] [place] 1 Q361D XX 09/24/17 05:45 09/24/17 05:45 (Chlorhexidine 2% Cloth) 3 pack Taper DAILY@04 TOP 09/25/17 04:00 09/21/18 03:59 09/26/17 04:00 (Chlorhexidine 2% Cloth) 3 pack UNSCH PRN TOP 09/24/17 05:45 (Milk Of Magnesia Liq) 30 ml Q12H PRN PO 09/24/17 05:45 (Senokot) 17.2 mg Q12H PRN PO 09/24/17 05:45 (Dulcolax Supp) 10 mg DAILY PRN RECTAL 09/24/17 05:45 (Lactulose Liq) 30 ml DAILY PRN PO 09/24/17 05:45 (Duoneb Neb) 1 ampule Q4HR NEB PRN NEB 09/24/17 12:00 (Pepcid) 20 mg DAILY NG 09/24/17 11:15 09/25/17 08:14 (Nitroglycerin 2% Oint) 0.5 inch Q8HR PRN TOPICAL 09/24/17 12:00 (Lopressor) 50 mg Q12HR PO 09/24/17 21:00 09/25/17 20:34 (Brilinta) 90 mg BID PO 09/24/17 21:00 09/25/17 20:34 (Lipitor) 40 mg DAILY PO 09/25/17 09:00 09/25/17 08:14 (VANCOMYCIN for oral use only) 125 mg QID PO 09/24/17 13:00 09/25/17 20:35 (Symbicort 160-4.5 Mcg Inh) 2 puff BID INH 09/24/17 21:00 09/25/17 20:34 (Eliquis) 5 mg BID PO 09/25/17 21:00 09/25/17 20:34 (Cardizem) 90 mg Q6HR OG-TUBE 09/26/17 00:00 09/26/17 06:32 (Tylenol) 650 mg Q4H PRN PO 09/25/17 23:30 (Morphine Inj) 2 mg Q4H PRN IV PUSH 09/25/17 23:30 09/26/17 04:12 Vital Signs / I&O Vital Signs Date Time Temp Pulse Resp B/P (MAP) Pulse Ox O2 Delivery O2 Flow Rate FiO2 09/26/17 06:00 62 09/26/17 04:00 97.6 73 27 129/77 (94) 100 09/26/17 04:00 73 09/26/17 02:00 86 09/26/17 00:00 91 09/26/17 00:00 98.3 91 19 147/81 (103) 98 09/25/17 22:00 83 09/25/17 21:31 99 Nasal Cannula 3.00 09/25/17 20:00 155 09/25/17 20:00 98.9 155 28 141/88 (105) 92 09/25/17 18:00 117 09/25/17 16:00 98.6 105 22 155/72 (99) 99 09/25/17 16:00 105 09/25/17 14:25 99 Nasal Cannula 4.00 09/25/17 14:25 99 Nasal Cannula 4 09/25/17 14:00 111 09/25/17 12:00 35 09/25/17 12:00 98.5 87 16 152/77 (102) 100 09/25/17 12:00 87 09/25/17 11:51 100 35 09/25/17 10:00 93 09/25/17 09:30 100 35 09/25/17 09:30 35 I/O 09/25/17 09/25/17 09/25/17 09/26/17 09/26/17 09/26/17 07:00 15:00 23:00 07:00 15:00 23:00 Intake Total 567 ml 178 ml 200 ml Output Total 425.0 ml 0 ml 550 ml 1600 ml Balance 142.0 ml 0 ml -372 ml -1400 ml Intake Oral 200 ml Tube Feeding 40 ml 78 ml Tube Irrigant 307 ml 100 ml Other 220 ml Output Urine Total 325 ml 550 ml 1600 ml Tube Feeding Residual Discard 100.0 ml 0 ml # Bowel Movements 0 0 0 Physical Exam GENERAL: Well developed, well nourished. No acute distress. HEENT: Jugular venous pressure is normal. CHEST: Lungs clear to auscultation anteriorly. CARDIAC: Irregular rate and rhythm without S3, S4. II/ KATHRINE base. Normal S2. ABDOMEN: Soft, nontender, no hepatosplenomegaly. Bowel sounds present. EXTREMITIES: No clubbing, cyanosis, or edema. Laboratory Laboratory Tests Test 09/25/17 10:48 White Blood Count 7.2 TH/MM3 Red Blood Count 3.96 MIL/MM3 Hemoglobin 12.0 GM/DL Hematocrit 37.8 % Mean Corpuscular Volume 95.4 FL Mean Corpuscular Hemoglobin 30.3 PG Mean Corpuscular Hemoglobin Concent 31.8 % Red Cell Distribution Width 15.3 % Platelet Count 286 TH/MM3 Mean Platelet Volume 8.8 FL Neutrophils (%) (Auto) 69.8 % Lymphocytes (%) (Auto) 15.0 % Monocytes (%) (Auto) 9.4 % Eosinophils (%) (Auto) 5.1 % Basophils (%) (Auto) 0.7 % Neutrophils # (Auto) 5.0 TH/MM3 Lymphocytes # (Auto) 1.1 TH/MM3 Monocytes # (Auto) 0.7 TH/MM3 Eosinophils # (Auto) 0.4 TH/MM3 Basophils # (Auto) 0.1 TH/MM3 CBC Comment DIFF FINAL Differential Comment Blood Urea Nitrogen 18 MG/DL Creatinine 1.46 MG/DL Random Glucose 112 MG/DL Total Protein 7.5 GM/DL Albumin 3.3 GM/DL Calcium Level 9.2 MG/DL Phosphorus Level 2.6 MG/DL Magnesium Level 2.2 MG/DL Alkaline Phosphatase 131 U/L Aspartate Amino Transf (AST/SGOT) 26 U/L Alanine Aminotransferase (ALT/SGPT) 44 U/L Total Bilirubin 0.6 MG/DL Sodium Level 139 MEQ/L Potassium Level 4.3 MEQ/L Chloride Level 104 MEQ/L Carbon Dioxide Level 26.1 MEQ/L Anion Gap 9 MEQ/L Estimat Glomerular Filtration Rate 35 ML/MIN Tumor Marker Alpha Fetoprotein 2.1 NG/ML Carcinoembryonic Antigen 1.9 NG/ML CA 19-9 Antigen 19.0 U/ML CA 125 Antigen 64.7 U/ML Assessment and Plan Problem List: (1) CHF (congestive heart failure) ICD Codes: I50.9 - Heart failure, unspecified Status: Acute Plan: Stable s/p extubation. EF by echo last month 45-50%. CHF possibly precipitated by uncontrolled HR's. Continue beta rob, add JAMES-I. (2) Paroxysmal atrial fibrillation ICD Codes: I48.0 - Paroxysmal atrial fibrillation Status: Chronic Plan: Remains in atrial fibrillation. HR's controlled today. Continue to monitor. Continue apixaban, diltiazem, metoprolol. (3) CAD (coronary artery disease) ICD Codes: I25.10 - Atherosclerotic heart disease of samish coronary artery without angina pectoris Status: Chronic Plan: Stable. No recent angina. Continue Brilinta. Code Status full code Discussed Condition With patient Problem Qualifiers (1) CHF (congestive heart failure): Qualified Codes: I50.9 - Heart failure, unspecified (2) CAD (coronary artery disease): Qualified Codes: I25.10 - Atherosclerotic heart disease of samish coronary artery without angina pectoris Kosta Augustine MD September 26, 2017 08:21
[2017-09-26] MEDS: METOPROLOL TARTRATE 50 MG TAB PO SCH ×2 (09:00→21:30)
[2017-09-26] MEDS: BUDESONIDE-FORMOTEROL 160/4.5 MCG INHALER INH SCH ×2 (09:11→21:30)
[2017-09-26] MEDS: ATORVASTATIN 40 MG TAB PO SCH (09:12)
[2017-09-26] MEDS: APIXABAN 5 MG TABLET PO SCH ×2 (09:12→21:29)
[2017-09-26] MEDS: SODIUM CHLORIDE 0.9% FLUSH 10 ML FLUSH IV FLUSH SCH ×2 (09:12→21:27)
[2017-09-26] MEDS: FAMOTIDINE 20 MG TAB NG SCH (09:12)
[2017-09-26] MEDS: ENALAPRIL MALEATE 5 MG TAB PO SCH ×2 (09:12→21:30)
[2017-09-26] MEDS: VANCOMYCIN 500 MG VIAL (FOR ORAL USE ONLY) PO SCH ×3 (09:13→18:00)
[2017-09-26] MEDS: TICAGRELOR 90 MG TAB PO SCH ×2 (09:14→21:30)
--- NOTE | 2017-09-26 18:24 | PD.CONS ---
HPI Service Family Medicine Consult Requested By Dr. Jean Washington Reason for Consult Transition to med/surg care Primary Care Physician Priyank Freire MD History of Present Illness Ms Sosa is a 72 YO female w/PMHx COPD, CAD s/p 3 vessel CABG 2009 and left heart cath (w/2 stents) August 2017, Afib, HLD, DM and GERD who presented to the ED with SOB and Afib RVR at rate to 170 who failed prone CPAP, desaturated to 68 %, then agreed to intubation. Pt was intubated 09/24 and sedated with versed, etomidate, fentanyl and propofol. S/p intubation pt satted at 100%, RVR reduced to 120, and then to 90s this morning. Pt had 3 vessel CABG of left main, circumflex, LAD with two stents placed in August. Follow up ECHO 08/11/17 shows EF 35-40% mild LV dilation and global dysfunction, normal RV, LA mod-severe dilation with moderate MR, RA dilation with moderate TR, mild aortic regurg, and pulm artery pressure 37 mmHg. Pt is followed by Dr Madden. She was extubated on 09/25 and tolerated well. At present, she says she feels "like she's being held prisoner," but denies chest pains, SOB, wheezing, abdominal pain, dysuria. On arrival at bedside she is in soft restraints of bilateral upper extremities due to having been disoriented and trying to remove her IV/Longoria and get out of the bed. staff development nurse report her being confused and occasionally agitated. No diarrhea noted. Review of Systems Constitutional: DENIES: Fatigue, Fever, Chills Endocrine: DENIES: Polyuria Eyes: DENIES: Vision loss Ears, nose, mouth, throat: DENIES: Ear Pain Respiratory: DENIES: Cough, Wheezing, Shortness of breath Cardiovascular: DENIES: Chest pain, Palpitations, Lower Extremity Edema Gastrointestinal: DENIES: Abdominal pain, Nausea Genitourinary: DENIES: Dysuria Musculoskeletal: COMPLAINS OF: Joint pain, DENIES: Muscle aches Integumentary: DENIES: Rash Hematologic/lymphatic: DENIES: Bruising Immunologic/allergic: DENIES: Urticaria Neurologic: DENIES: Headache, Localized weakness Psychiatric: COMPLAINS OF: Confusion, DENIES: Anxiety, Depression Past Family Social History Past Medical History CAD s/p 3 vessel CABG (w/ 2 stents) August 2017 AFib w/RVR CHF HTN HLD COPD with 2L O2 requirement DM CKD GERD Past Surgical History Left heart cath August 2017 3 stents in lower extremity Dr. Gardiner; 2015 (Left and right legs, and abdominal aorta) Right knee replacement; 2014 Dr. Alexander Lumbar Spine L5-S1 repair (2 spacers and rods, some hardware removed during second surgery); 2013 Dr. Valdes Right and Left Cataracts; , Dr. Montoya Triple CABG 2004; Dr. Romano Total Hysterectomy 1973 Bilateral foot surgery in 1972 Esophageal surgery (stretched) Reported Medications Reported Meds & Active Scripts Active Oxygen tank (Oxygen) 1 Ea Tank Liter PA.CANULA CONTINUOUS Oxygen Concentrator Portable Gaseous 2 L/min via Nasal Cannula Continuous For 99 months Eliquis (Apixaban) 2.5 Mg Tab 2.5 Mg PO BID Diltiazem CD 24 HR 240 Mg Caper 240 Mg PO DAILY 30 Days Oxygen tank (Oxygen) 1 Ea Tank Liter PA.CANULA CONTINUOUS Oxygen Concentrator Portable Gaseous 2 L/min via Nasal Cannula Continuous For 99 months Isosorbide Mononitrate ER (Isosorbide Mononitrate) 30 Mg Sagar 30 Mg PO DAILY@ 07 30 Days [Albuterol-Ipratropium Neb] 1 AMPULE Nebu 1 Ampule NEB Q6HR NEB PRN 14 Days Lopressor (Metoprolol Tartrate) 50 Mg Tab 50 Mg PO Q12HR Brilinta (Ticagrelor) 90 Mg Tab 90 Mg PO BID Metformin (Metformin HCl) 500 Mg Tab 500 Mg PO DAILY With a meal Atorvastatin (Atorvastatin Calcium) 40 Mg Tab 40 Mg PO HS Reported Lyrica (Pregabalin) 150 Mg Cap 150 Mg PO DAILY Furosemide 20 Mg Tab 20 Mg PO DAILY Plavix (Clopidogrel Bisulfate) 75 Mg Tab 75 Mg PO DAILY Lisinopril 10 Mg Tab 10 Mg PO DAILY Hydrocodone-Acetaminophen 5-325 mg Tab 1 Tab PO Q6H PRN Advair Diskus Inh (Fluticasone-Salmeterol Inh) 250-50 Mcg/Blist Aer 1 Puff INH BID Rinse mouth after use. Ventolin Hfa 18 GM Inh (Albuterol Sulfate) 90 Mcg/Act Aer 2 Puff INH Q4H PRN Allergies: Coded Allergies: No Known Allergies (Unverified Allergy, Unknown, 09/24/17) Active Ordered Medications Current Medications Medications (Trade) Dose Ordered Sig/Hilda Route Start Time Stop Time Status Last Admin (NS Flush) 2 ml UNSCH PRN IV FLUSH 09/24/17 05:45 (NS Flush) 2 ml BID IV FLUSH 09/24/17 09:00 09/26/17 09:12 (Duoneb Neb) 1 ampule Q6HR NEB INH 09/24/17 10:00 09/26/17 16:39 ([facility] [place] [facility] [place]) 1 Q361D XX 09/24/17 05:45 09/24/17 05:45 (Chlorhexidine 2% Cloth) 3 pack Taper DAILY@04 TOP 09/25/17 04:00 09/21/18 03:59 09/26/17 04:00 (Chlorhexidine 2% Cloth) 3 pack UNSCH PRN TOP 09/24/17 05:45 (Milk Of Magnesia Liq) 30 ml Q12H PRN PO 09/24/17 05:45 (Senokot) 17.2 mg Q12H PRN PO 09/24/17 05:45 (Dulcolax Supp) 10 mg DAILY PRN RECTAL 09/24/17 05:45 (Lactulose Liq) 30 ml DAILY PRN PO 09/24/17 05:45 (Duoneb Neb) 1 ampule Q4HR NEB PRN NEB 09/24/17 12:00 (Nitroglycerin 2% Oint) 0.5 inch Q8HR PRN TOPICAL 09/24/17 12:00 (Lopressor) 50 mg Q12HR PO 09/24/17 21:00 09/25/17 20:34 (Brilinta) 90 mg BID PO 09/24/17 21:00 09/26/17 09:14 (Lipitor) 40 mg DAILY PO 09/25/17 09:00 09/26/17 09:12 (VANCOMYCIN for oral use only) 125 mg QID PO 09/24/17 13:00 09/26/17 14:46 (Symbicort 160-4.5 Mcg Inh) 2 puff BID INH 09/24/17 21:00 09/26/17 09:11 (Eliquis) 5 mg BID PO 09/25/17 21:00 09/26/17 09:12 (Tylenol) 650 mg Q4H PRN PO 09/25/17 23:30 (Morphine Inj) 2 mg Q4H PRN IV PUSH 09/25/17 23:30 09/26/17 04:12 (Vasotec) 5 mg BID PO 09/26/17 09:00 09/26/17 09:12 (Vaseline Oint) 1 applic UNSCH PRN TOPICAL 09/26/17 18:30 (Cardizem) 90 mg Q6HR PO 09/27/17 00:00 (Pepcid) 20 mg DAILY PO 09/27/17 09:00 Family History Father - Diabetes Mellitus, passed at age of 69 y/o Mother - Ovarian cancer at the age 53 y/o 2 sisters - Good health 82 y/o, Nandini 76 y/o mental problems 3 children - healthy, son with HTN (reported from previous H&P) Social History EtOH - rarely Tobacco - yes; 1ppd x 55 years Other drugs - no 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) Physical Exam Vital Signs Vital Signs Date Time Temp Pulse Resp B/P (MAP) Pulse Ox O2 Delivery O2 Flow Rate FiO2 09/26/17 16:00 97.8 83 17 160/68 (98) 100 09/26/17 16:00 83 09/26/17 14:00 104 09/26/17 12:00 76 09/26/17 12:00 97.7 76 16 146/74 (98) 99 09/26/17 10:00 68 09/26/17 09:02 98 Nasal Cannula 2.00 09/26/17 08:00 97.9 58 12 107/56 (73) 100 09/26/17 08:00 58 09/26/17 06:00 62 09/26/17 04:00 97.6 73 27 129/77 (94) 100 09/26/17 04:00 73 09/26/17 02:00 86 09/26/17 00:00 91 09/26/17 00:00 98.3 91 19 147/81 (103) 98 09/25/17 22:00 83 09/25/17 21:31 99 Nasal Cannula 3.00 09/25/17 20:00 155 09/25/17 20:00 98.9 155 28 141/88 (105) 92 Physical Exam GENERAL: WDWN adult white female resting comfortably in bed, pleasant, NAD. SKIN: Cool and dry. 5x5 cm stage 1 sacral decubitus ulcer (redness but no skin breakdown). HEAD: NC/AT EYES: PERRL. EOMI. No conjunctival injection or drainage. ENT: MMM, OP without erythema, tonsillar swelling, or exudate. NECK: Supple. No JVD. CARDIOVASCULAR: Borderline tachycardic with regular rhythm. Normal S1/S2. No MRG RESPIRATORY: Normal rate and effort. Poor air movement but CTAB. No crackles or wheezes. GASTROINTESTINAL: Abdomen soft, non-distended, non-tender. MUSCULOSKELETAL: Extremities without clubbing, cyanosis, or edema. NEUROLOGICAL: Awake and alert. Oriented to name and location (knows it's a hospital, thinks it's [place]). Not to time (thought year was 1917). Cranial nerves II through XII grossly intact. Moves all extremities without difficulty. Normal speech. Laboratory Date/Time Source Procedure Growth Status 09/24/17 05:47 Sputum Endotracheal Gram Stain - Final Complete 09/24/17 05:47 Sputum Endotracheal Sputum Culture - Final LIGHT GROWTH NORMAL RESPIRATORY [facility] Complete 09/24/17 03:07 Urine Catheterized Urine Urine Culture - Final NO GROWTH IN 48 HOURS. Complete Result Diagram: 09/25/17 1048 09/25/17 1048 Imaging Last Impressions Chest X-Ray 09/25/17 0600 Signed Impressions: CONCLUSION: ET tube and NG tube in good position. The heart size is within normal limits fo r an AP portable chest x-ray. Abdomen Ultrasound 09/24/17 0000 Signed Impressions: CONCLUSION: 1. 1.8 cm hypoechoic subcapsular mass in the right lobe of the liver. This may represent focal fatty infiltration. However, differential considerations inclu de hemangioma and malignancy. Further characterization may be performed with MR I exam on an outpatient basis as clinically warranted. 2. Slightly prominent common bile duct and pancreatic duct without focal abnor mality. This is nonspecific although a partial ampullary obstruction cannot be entirely excluded. 3. Gallbladder polyps versus adherent stones. No sonographic evidence for chol ecystitis. 4. Trace ascites and small bilateral pleural effusions. Assessment and Plan Assessment and Plan 72 yo smoker with HTN, CHF, COPD, DM, AFib, CAD presenting with: Problem List: (1) Respiratory failure ICD Codes: J96.90 - Respiratory failure, unspecified, unspecified whether with hypoxia or hypercapnia Status: Resolved Plan: Likely due to RVR in patient with significant CAD versus pulmonary edema / CHF based on initial CXR and BNP in the 600s Now resolved, tolerated extubation well; still needing oxygen - Wean O2 as tolerated - Manage comorbid conditions as below (2) Delirium ICD Codes: R41.0 - Disorientation, unspecified Status: Acute Plan: Likely related to sedation and ICU stay; labs and exam benign - Ensure pain control: Tylenol with Thornton PRN for breakthrough - Day/night rhythm regulation - Avoid restraints if possible - Monitor clinically (3) Stage 1 skin ulcer of sacral region ICD Codes: L98.429 - Non-pressure chronic ulcer of back with unspecified severity Status: Acute Plan: Exam shows stage 1 ulcer with no skin breakdown - Ulcer prevention protocol - Consider routine wound care consult if does not improve (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 Likely represents fatty infiltrate, though malignancy could not be excluded per radiology report. Recommended MRI as outpatient to better characterize mass. CA-125 slightly elevated CEA, AFP, CA 19-9 normal - Advise MRI as outpatient (6) Atrial fibrillation with RVR ICD Codes: I48.91 - Unspecified atrial fibrillation Status: Resolved Plan: Presented with AFib in RVR, HR now at goal Troponin negative x3 - Cardiology consulted, appreciate recs - Diltiazem 90 mg PO Q6H - Anticoagulation with Eliquis - Continue telemetry; if no events next 24 hours can discontinue (7) CHF (congestive heart failure) ICD Codes: I50.9 - Heart failure, unspecified Status: Acute Plan: Symptomatically improved Initially presented with respiratory failure, pulmonary edema on CXR Echo 08/11/17 with EF 45-50%, low-normal to mild systolic dysfunction BNP in 600s on admission - Repeat CXR, BNP in AM - Resume home Lasix 20 mg PO daily - Cardiology following, appreciate recs - Continue home BB - Added enalapril 5 mg BID (8) COPD (chronic obstructive pulmonary disease) ICD Codes: J44.9 - Chronic obstructive pulmonary disease, unspecified Status: Chronic Plan: Possibly contributed to respiratory failure, though clinical picture more likely CHF Sputum culture with light growth normal respiratory aurora - Continue DuoNeb Q6H scheduled, Q6H PRN - Continue home Symbicort (9) CAD (coronary artery disease) ICD Codes: I25.10 - Atherosclerotic heart disease of ambler coronary artery without angina pectoris Status: Chronic Plan: CAD with stable angina Troponin negative x3 - Cardiology consulted, assistance appreciated - Continue Brillinta - Continue statin - CHF and AFib meds as above (10) Diabetes ICD Codes: E11.9 - Type 2 diabetes mellitus without complications Plan: On metformin at home, in good control - Hold metformin - Accu-cheks, low novolog scale - hypoglycemia protocol - glucose goal 140-180 (11) Hypertension ICD Codes: I10 - Essential (primary) hypertension Status: Chronic Plan: BP stable - Continue beta rob, ACEi, diltiazem - Vasotec PRN BP > 200/100 (12) Chronic kidney disease (CKD) ICD Codes: N18.9 - Chronic kidney disease, unspecified Status: Chronic Plan: Baseline creatinine 1.6 on review of outpatient record - Renally dose meds - Trend BMP (13) Tobacco use disorder ICD Codes: F17.200 - Nicotine dependence, unspecified, uncomplicated Plan: Can offer nicotine patch if patient requests (14) FEN/GI/PPx Plan: Fluids: Caution given CHF. PO only for now. Elecs: Monitor, replete PRN Nutrition: Diet heart healthy with 2 gm sodium restriction DVT: On Eliquis GI: Famotidine 20 mg daily Dispo: If stable tomorrow morning can transfer out of ICU. Discharge plan to be based on PT/OT recs, need for further O2 Case discussed with critical care physician Dr. Jean Washington Problem Qualifiers (1) Respiratory failure: Qualified Codes: J96.01 - Acute respiratory failure with hypoxia (2) CHF (congestive heart failure): Qualified Codes: I50.23 - Acute on chronic systolic (congestive) heart failure (3) COPD (chronic obstructive pulmonary disease): Qualified Codes: J44.9 - Chronic obstructive pulmonary disease, unspecified (4) CAD (coronary artery disease): Qualified Codes: I25.10 - Atherosclerotic heart disease of ambler coronary artery without angina pectoris (5) Diabetes: Qualified Codes: E11.22 - Type 2 diabetes mellitus with diabetic chronic kidney disease; N18.3 - Chronic kidney disease, stage 3 (moderate) (6) Hypertension: Qualified Codes: I10 - Essential (primary) hypertension (7) Chronic kidney disease (CKD): Qualified Codes: N18.3 - Chronic kidney disease, stage 3 (moderate) Pb [place] MD R2 September 26, 2017 18:24
[2017-09-26] MEDS ORDERED: PETROLATUM 30 GM TUBE TOPICAL PRN (18:30)
--- NOTE | 2017-09-26 18:40 | HHI.GIFU ---
Subjective Remarks Agitated and confused Objective Vitals I&O Vital Signs Date Time Temp Pulse Resp B/P (MAP) Pulse Ox O2 Delivery O2 Flow Rate FiO2 09/26/17 18:00 95 09/26/17 16:00 97.8 83 17 160/68 (98) 100 09/26/17 16:00 83 09/26/17 14:00 104 09/26/17 12:00 76 09/26/17 12:00 97.7 76 16 146/74 (98) 99 09/26/17 10:00 68 09/26/17 09:02 98 Nasal Cannula 2.00 09/26/17 08:00 97.9 58 12 107/56 (73) 100 09/26/17 08:00 58 09/26/17 06:00 62 09/26/17 04:00 97.6 73 27 129/77 (94) 100 09/26/17 04:00 73 09/26/17 02:00 86 09/26/17 00:00 91 09/26/17 00:00 98.3 91 19 147/81 (103) 98 09/25/17 22:00 83 09/25/17 21:31 99 Nasal Cannula 3.00 09/25/17 20:00 155 09/25/17 20:00 98.9 155 28 141/88 (105) 92 I/O 09/25/17 09/25/17 09/25/17 09/26/17 09/26/17 09/26/17 07:00 15:00 23:00 07:00 15:00 23:00 Intake Total 567 ml 178 ml 200 ml 0 ml Output Total 425.0 ml 0 ml 550 ml 1600 ml 500 ml Balance 142.0 ml 0 ml -372 ml -1400 ml -500 ml Intake Oral 200 ml 0 ml Tube Feeding 40 ml 78 ml Tube Irrigant 307 ml 100 ml Other 220 ml Output Urine Total 325 ml 550 ml 1600 ml 500 ml Tube Feeding Residual Discard 100.0 ml 0 ml # Bowel Movements 0 0 0 0 Laboratory Date/Time Source Procedure Growth Status 09/24/17 05:47 Sputum Endotracheal Gram Stain - Final Complete 09/24/17 05:47 Sputum Endotracheal Sputum Culture - Final LIGHT GROWTH NORMAL RESPIRATORY KEMAL Complete 09/24/17 03:07 Urine Catheterized Urine Urine Culture - Final NO GROWTH IN 48 HOURS. Complete Imaging Last 48 hours Impressions Chest X-Ray 09/25/17 0600 Signed Impressions: CONCLUSION: ET tube and NG tube in good position. The heart size is within normal limits fo r an AP portable chest x-ray. Physical Exam HEENT: normocephalic; atraumatic; patient has been extubated NECK: Neck is supple, short obese CHEST: Clear to auscultation CARDIAC: RRR ABDOMEN: Soft, large, obese, round, mild distention, positive bowel sounds EXTREMITIES: Mild lower extremity edema. SKIN: No obvious rash or breakdown DOOR TO DOOR SELLING AGENT: Agitated and confused Assessment and Plan Assessment: (1) Morbid obesity ICD Codes: E66.01 - Morbid (severe) obesity due to excess calories (2) C. difficile colitis ICD Codes: A04.72 - Enterocolitis due to Clostridium difficile, not specified as recurrent Plan 72-year-old morbidly obese female admitted on 09/24/2017 with shortness of breath and rapid atrial fib which required intubation on admission. She is currently being managed in the intensive care unit now with a controlled heart rate of atrial fib 81 and on sedation and ventilator management. Currently patient has some mild elevated LFTs which is probably related to shock liver and she is also positive for C. difficile. Current hemoglobin on admission 11.6 now 10.6. Was noted on admission that she had maroon stools and had been on Eliquis and GI was consulted. According to the nurses she has had no further maroon stools, and Eliquis is on hold. Patient was discharged sometime back in August to a [facility] and is now returned back to the hospital positive for C. difficile. Current abdomen is soft round, obese,, NG tube has some small red specks and clear serous drainage noted and connected to suction. 09/25/2017, abdominal ultrasound noted on 09/24/2017 which showed 1.8 hyper in miotic subcapsular mass in the right lobe of liver this may be fatty liver infiltrations but needs to consider hemangioma or malignancy further characteristics may be performed per MR exam on an outpatient basis if warranted. Slightly prominent common bile duct and pancreatic duct without focal abnormality. This is nonspecific although a partial ampullary obstruction cannot be entirely excluded. Gallbladder polyps versus adherent stones no evidence of cholecystitis. Trace of ascites and small bilateral pleural effusions. Labs include alpha-fetoprotein 2.1 LFTs normal with AST 26, ALT 44, alkaline phosphatase 131, WBC count 7.2, hemoglobin 12. Patient may have cystic mass versus hemangioma and will need further evaluation once she is stable. Tumor markers normal. No further maroon stools seen since Eliquis has been held. No family present Plan According to the nurse no bowel movements Flagyl IV, PPI Antiemetics Patient will need CT or MRI on to evaluate mass once she is stable Tumor marker reveals a slight elevation of the CA 125 this is of unclear significance at this point Monitor for any further bleeding or maroon stools , Hemoccult if needed Transfuse as necessary Monitor labs, Further recommendations to follow Tomasz Gleason MD September 26, 2017 18:40
[2017-09-26] MEDS ORDERED: ENALAPRILAT 1.25 MG/ML VIAL IV PUSH PRN (19:15)
[2017-09-26] MEDS ORDERED: DEXTROSE 50% IN WATER 50 ML VIAL(D50) IV PUSH PRN (19:45)
[2017-09-26] MEDS ORDERED: GLUCAGON 1 MG/ML VIAL OTHER PRN (19:45)
[2017-09-26] MEDS: INSULIN ASPART SUPPLEMENTAL SCALE SQ SCH (21:00)
[2017-09-26] MEDS: DILTIAZEM HCL 90 MG TAB PO SCH (23:13)
[2017-09-26] MEDS: ACETAMINOPHEN/HYDROcodone 325 MG/5 MG TAB PO PRN (23:13)
[2017-09-27] VITALS (55 sets, daily range): BP systolic 108–145; BP diastolic 55–88; PULSE 53–106; RESP 11–144; TEMP 97.5–98; O2SAT 83–100
[2017-09-27] MEDS: RESP: ALBUTEROL 2.5 MG/IPRATROPIUM 0.5 MG NEB (SCH) INH ×4 (03:45→21:24)
[2017-09-27] MEDS: CHLORHEXIDINE GLUCONATE 2 % 1 PACK (2 CLOTHS) TOP SCH (04:00)
--- NOTE | 2017-09-27 05:33 | RADRPT ---
EXAM DATE: 09/27/2017 4:47 AM EDT AGE/SEX: 72 years / Female INDICATIONS: Shortness of breath, possible pulmonary disease. CLINICAL DATA: This is the patient's subsequent encounter. Patient reports that signs and symptoms h ave been present for 3 days and indicates a pain score of Nonresponsive. MEDICAL/SURGICAL HISTORY: Chronic obstructive pulmonary disease. Diabetes mellitus type II. C ongestive heart failure. AAA. Coronary artery stent. CABG. Abdominal aortic aneurysm repair. COMPARISON: [facility], CHEST SINGLE AP, 09/25/2017. . FINDINGS: Mild and not significantly changed parenchymal consolidation seen medially of the right lung base. No pleural effusion demonstrated. No pneumothorax. Mild cardiomegaly unchanged. Endotracheal tube and nasogastric tube out. Median sternotomy changes are again noted. CONCLUSION: Mild atelectasis right medial lung base. Interim extubation and nasogastric tube removal. Electronically signed by: Jhony Cheung MD 09/27/2017 5:31 AM EDT
[2017-09-27] MEDS: DILTIAZEM HCL 90 MG TAB PO SCH (06:23)
[2017-09-27 06:42] LABS: AUTOMATED NEUTROPHIL # 4.1 TH/MM3 (1.8-7.7); BASOPHIL % 0.4 % (0.0-2.0); EOSINOPHIL # 0.3 TH/MM3 (0-0.4); EOSINOPHIL % 4.8 % (0.0-4.0); HEMATOCRIT 33.1 % (35.0-46.0); HEMOGLOBIN 10.9 GM/DL (11.6-15.3); LYMPH % 15.9 % (9.0-44.0); LYMPHOCYTE # 0.9 TH/MM3 (1.0-4.8); MEAN CELL VOLUME 93.8 FL (80.0-100.0); MEAN CORPUSCULAR HEMOGLOBIN 30.8 PG (27.0-34.0); MEAN CORPUSCULAR HGB CONC 32.8 % (32.0-36.0); MEAN PLATELET VOLUME 8.6 FL (7.0-11.0); MONO % 9.9 % (0.0-8.0); MONOCYTE # 0.6 TH/MM3 (0-0.9); PLATELET COUNT 258 TH/MM3 (150-450); RED BLOOD COUNT 3.53 MIL/MM3 (4.00-5.30)
[2017-09-27 07:11] LABS: BICARBONATE 29.2 MEQ/L (21.0-32.0); CALCIUM 9.2 MG/DL (8.5-10.1); CREATININE 1.19 MG/DL (0.50-1.00); PHOSPHORUS 2.9 MG/DL (2.5-4.9)
[2017-09-27] MEDS: INSULIN ASPART SUPPLEMENTAL SCALE SQ SCH ×4 (08:00→21:00)
[2017-09-27] MEDS: SODIUM CHLORIDE 0.9% FLUSH 10 ML FLUSH IV FLUSH SCH ×2 (09:22→22:26)
[2017-09-27] MEDS: BUDESONIDE-FORMOTEROL 160/4.5 MCG INHALER INH SCH ×2 (09:23→21:00)
[2017-09-27] MEDS: FUROSEMIDE 20 MG TAB PO SCH (09:23)
[2017-09-27] MEDS: APIXABAN 5 MG TABLET PO SCH ×2 (09:23→22:18)
[2017-09-27] MEDS: FAMOTIDINE 20 MG TAB PO SCH (09:23)
[2017-09-27] MEDS: ENALAPRIL MALEATE 5 MG TAB PO SCH ×2 (09:23→22:18)
[2017-09-27] MEDS: ATORVASTATIN 40 MG TAB PO SCH (09:23)
[2017-09-27] MEDS: METOPROLOL TARTRATE 50 MG TAB PO SCH ×2 (09:23→22:18)
[2017-09-27] MEDS: TICAGRELOR 90 MG TAB PO SCH ×2 (09:23→22:18)
[2017-09-27] MEDS ORDERED: POTASSIUM CHLORIDE 20 MEQ CONTROLLED RELEASE TAB PO ONE (09:30)
--- NOTE | 2017-09-27 09:31 | HHI.FPPN ---
Subjective Remarks Mrs. Sosa was afebrile with stable vital signs overnight; patient with normal O2 saturations. I&O -260ml overnight. Patient was alert and oriented this morning. Patient does not report chest pain , shortness of breath, or abdominal pain. Patient has been urinating on bed mejia since she removed her [place] yesterday. 1 bowel movement overnight. (Sylvester Valentin MD R3) Objective Vitals Vital Signs Date Time Temp Pulse Resp B/P (MAP) Pulse Ox O2 Delivery O2 Flow Rate FiO2 09/27/17 09:00 96 Nasal Cannula 2.00 09/27/17 06:00 80 09/27/17 04:30 76 14 97 09/27/17 04:15 74 11 99 09/27/17 04:01 80 15 109/55 (73) 100 09/27/17 04:00 97.5 09/27/17 04:00 83 14 100 09/27/17 04:00 83 09/27/17 03:45 79 22 99 09/27/17 03:30 66 17 100 09/27/17 03:15 67 11 98 09/27/17 03:00 64 12 124/66 (85) 99 09/27/17 02:45 70 24 100 09/27/17 02:30 66 15 100 09/27/17 02:15 65 16 99 09/27/17 02:01 72 16 132/59 (83) 100 09/27/17 02:00 72 09/27/17 02:00 72 21 100 09/27/17 01:45 64 13 99 09/27/17 01:30 69 51 99 09/27/17 01:15 76 34 95 09/27/17 01:00 60 12 131/61 (84) 99 09/27/17 00:45 54 28 99 09/27/17 00:30 61 18 100 09/27/17 00:15 53 20 98 09/27/17 00:01 66 20 112/56 (74) 97 09/27/17 00:00 65 09/27/17 00:00 65 26 95 09/27/17 00:00 97.7 09/26/17 23:45 75 27 99 09/26/17 23:30 76 19 09/26/17 23:15 82 27 09/26/17 23:00 93 36 09/26/17 22:45 88 37 09/26/17 22:30 68 13 98 09/26/17 22:15 78 13 98 09/26/17 22:01 75 15 156/74 (101) 99 09/26/17 22:00 76 09/26/17 22:00 76 15 99 09/26/17 21:45 91 24 99 09/26/17 21:30 110 25 90 09/26/17 21:20 97 Nasal Cannula 2.00 09/26/17 21:15 84 26 98 09/26/17 21:01 119 34 151/94 (113) 95 09/26/17 21:00 93 20 99 09/26/17 20:45 82 15 99 09/26/17 20:30 70 13 99 09/26/17 20:15 77 13 99 09/26/17 20:01 76 19 154/75 (101) 99 09/26/17 20:00 90 09/26/17 20:00 80 15 99 09/26/17 20:00 97.9 80 21 154/75 (101) 99 09/26/17 19:45 71 13 97 09/26/17 19:30 79 13 98 09/26/17 19:15 75 14 98 09/26/17 19:01 75 17 162/69 (100) 100 09/26/17 18:00 95 25 180/92 (121) 100 09/26/17 18:00 95 09/26/17 17:00 92 18 171/82 (111) 100 09/26/17 16:00 97.8 83 17 160/68 (98) 100 09/26/17 16:00 98.0 83 17 160/68 (98) 100 09/26/17 16:00 83 09/26/17 15:01 107 37 199/91 (127) 99 09/26/17 14:00 104 28 162/66 (98) 98 09/26/17 14:00 104 09/26/17 12:00 97.8 76 16 146/74 (98) 99 09/26/17 12:00 76 09/26/17 12:00 97.7 76 16 146/74 (98) 99 09/26/17 10:00 68 22 122/69 (86) 99 09/26/17 10:00 68 I/O 5/2609/26/17 09/26/17 09/27/17 09/27/17 09/27/17 07:00 15:00 23:00 07:00 15:00 23:00 Intake Total 200 ml 0 ml 240 ml Output Total 1600 ml 500 ml Balance -1400 ml -500 ml 240 ml Intake Oral 200 ml 0 ml 240 ml Output Urine Total 1600 ml 500 ml # Voids 2 # Bowel Movements 0 0 1 (Sylvester Valentin MD R3) Result Diagram: 09/27/1760409/27/17604 Imaging Last Impressions Chest X-Ray 09/27/17 07 Signed Impressions: CONCLUSION: Mild atelectasis right medial lung base. Interim extubation and nasogastric tub e removal. Abdomen Ultrasound 09/24/17 0000 Signed Impressions: CONCLUSION: 1. 1.8 cm hypoechoic subcapsular mass in the right lobe of the liver. This may represent focal fatty infiltration. However, differential considerations inclu de hemangioma and malignancy. Further characterization may be performed with MR I exam on an outpatient basis as clinically warranted. 2. Slightly prominent common bile duct and pancreatic duct without focal abnor mality. This is nonspecific although a partial ampullary obstruction cannot be entirely excluded. 3. Gallbladder polyps versus adherent stones. No sonographic evidence for chol ecystitis. 4. Trace ascites and small bilateral pleural effusions. Objective Remarks GENERAL: NAD SKIN: No visible rashes. Sacral ulcer not visualized today EYES: EOM grossly I. No conjunctival injection or drainage. ENT: MMM CARDIOVASCULAR: Regular rate and rhythm. Normal S1/S2. No MRG RESPIRATORY: Normal rate and effort. CTAB; decreased breath sounds without wheezing or focal congestion GASTROINTESTINAL: Abdomen soft, non-distended, non-tender. MUSCULOSKELETAL: Extremities without edema. NEUROLOGICAL: Awake and alert. Oriented to month/year/location. Cranial nerves grossly intact. Grossly normal peripheral motor and sensory function. Normal speech. (Sylvester Valentin MD R3) A/P Assessment and Plan 72 yo smoker with HTN, CHF, COPD, DM, AFib, CAD presenting with: (Sylvester Valentin MD R3) Attending Attestation Medical rounds with Dr Valentin this morning FMR reviewed Patient seen and examined Agree with above documentation See Orders (En Sun MD) Problem List: (1) Respiratory failure ICD Codes: J96.90 - Respiratory failure, unspecified, unspecified whether with hypoxia or hypercapnia Status: Resolved Plan: Impression: Patient intubated 09/24 after failing CPAP in ED and having desaturations <70%. ABG on admission with pH 7.25. Patient improved and was subsequently extubated. Likely due to RVR in patient with significant CAD versus pulmonary edema / CHF based on initial CXR and BNP in the 600s Now resolved, tolerated extubation well; still needing oxygen - Wean O2 as tolerated - Manage comorbid conditions as below (2) CHF (congestive heart failure) ICD Codes: I50.9 - Heart failure, unspecified Status: Acute Plan: Impression: Symptomatically improved Initially presented with respiratory failure, pulmonary edema on CXR Echo 08/11/17 with EF 45-50%, low-normal to mild systolic dysfunction BNP in 600s on admission. Per Cardiology; possibly precipitated by uncontrolled HR - Repeat CXR, BNP in AM - Resume home Lasix 20 mg PO daily -Will start KCl 10 mEq daily - Cardiology following, appreciate recs - Continue home BB - Continue enalapril 5 mg BID (3) Atrial fibrillation with RVR ICD Codes: I48.91 - Unspecified atrial fibrillation Status: Resolved Plan: Presented with AFib in RVR, HR now at goal Troponin negative x3 - Cardiology consulted, appreciate recs - Diltiazem 90 mg PO Q6H -Metoprolol 50mg BID - Anticoagulation with Eliquis - Continue telemetry (4) Delirium ICD Codes: R41.0 - Disorientation, unspecified Status: Resolved Plan: 09/27: No concern for delirium at this time Impression: Previous delerium likely related to sedation and ICU stay; labs and exam benign - Ensure pain control: Tylenol with [place] PRN for breakthrough - Avoid restraints if possible - Monitor clinically (5) Stage 1 skin ulcer of sacral region ICD Codes: L98.429 - Non-pressure chronic ulcer of back with unspecified severity Status: Acute Plan: Exam shows stage 1 ulcer with no skin breakdown - Ulcer prevention protocol - Consider routine wound care consult if does not improve (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 Likely represents fatty infiltrate, though malignancy could not be excluded per radiology report. Recommended MRI as outpatient to better characterize mass. CA-125 slightly elevated CEA, AFP, CA 19-9 normal - Advise MRI as outpatient (8) COPD (chronic obstructive pulmonary disease) ICD Codes: J44.9 - Chronic obstructive pulmonary disease, unspecified Status: Chronic Plan: Possibly contributed to respiratory failure, though clinical picture more likely CHF Sputum culture with light growth normal respiratory aurora - Continue DuoNeb Q6H scheduled, Q6H PRN - Continue home Symbicort (9) CAD (coronary artery disease) ICD Codes: I25.10 - Atherosclerotic heart disease of [place] coronary artery without angina pectoris Status: Chronic Plan: Impression: CAD; no recent angina symptoms. Troponin negative x3 - Cardiology consulted, assistance appreciated - Continue Brillinta - Continue statin -JAMES and BB as above (10) Diabetes ICD Codes: E11.9 - Type 2 diabetes mellitus without complications Plan: On metformin at home, in good control - Hold metformin - Accu-cheks, low novolog scale - hypoglycemia protocol - glucose goal 140-180 (11) Hypertension ICD Codes: I10 - Essential (primary) hypertension Status: Chronic Plan: BP stable - Continue beta rob, ACEi, diltiazem - Vasotec PRN BP > 200/100 (12) Chronic kidney disease (CKD) ICD Codes: N18.9 - Chronic kidney disease, unspecified Status: Chronic Plan: 09/27: Cr 1.19 Impression: Mild CKD chronically; Baseline creatinine 1.6 on review of outpatient record - Renally dose meds - Trend BMP (13) Tobacco use disorder ICD Codes: F17.200 - Nicotine dependence, unspecified, uncomplicated Plan: Can offer nicotine patch if patient requests (14) FEN/GI/PPx Plan: Fluids: Caution given CHF. PO only for now. Elecs: Monitor, replete PRN Nutrition: Diet heart healthy with 2 gm sodium restriction DVT: On Eliquis GI: Famotidine 20 mg daily Dispo: Will transfer to med/surg floor. Discharge plan to be based on PT/OT recs , need for further O2 Case discussed with Dr. Sun (Sylvester Valentin MD R3) Problem Qualifiers (1) Respiratory failure: Qualified Codes: J96.01 - Acute respiratory failure with hypoxia (2) CHF (congestive heart failure): Qualified Codes: I50.23 - Acute on chronic systolic (congestive) heart failure (3) COPD (chronic obstructive pulmonary disease): Qualified Codes: J44.9 - Chronic obstructive pulmonary disease, unspecified (4) CAD (coronary artery disease): Qualified Codes: I25.10 - Atherosclerotic heart disease of [place] coronary artery without angina pectoris (5) Diabetes: Qualified Codes: E11.22 - Type 2 diabetes mellitus with diabetic chronic kidney disease; N18.3 - Chronic kidney disease, stage 3 (moderate) (6) Hypertension: Qualified Codes: I10 - Essential (primary) hypertension (7) Chronic kidney disease (CKD): Qualified Codes: N18.3 - Chronic kidney disease, stage 3 (moderate) Sylvester Valentin MD R3 September 27, 2017 09:31 En Sun MD September 27, 2017 17:17
--- NOTE | 2017-09-27 11:31 | PD.CARD.PN ---
Subjective Subjective Remarks Denies CP, dizziness, palpitations, orthopnea. Mild dyspnea at rest. Objective Medications Item Value Date Time Potassium Chloride 10 meq 09/27/172099 (KCl) Q12HR/PO Furosemide 20 mg 09/27/17 0900 (Lasix) DAILY/PO 09/27/17 09 Diltiazem HCl 90 mg 09/27/17 0000 (Cardizem) Q6HR/PO 09/27/17 06 Enalapril Maleate 5 mg 09/26/17 0900 (Vasotec) BID/PO 09/27/17 09 Apixaban 5 mg 09/25/17 2100 (Eliquis) BID/PO 09/27/17922 Atorvastatin 40 mg 09/25/17899 Calcium DAILY/PO 09/27/17922 (Lipitor) Metoprolol 50 mg 09/24/172099 Tartrate Q12HR/PO 09/27/17922 (Lopressor) Ticagrelor 90 mg 09/24/172099 (Brilinta) BID/PO 09/27/17922 Current Medications Medications (Trade) Dose Ordered Sig/Hilda Route Start Time Stop Time Status Last Admin (NS Flush) 2 ml UNSCH PRN IV FLUSH 09/24/17 05:45 (NS Flush) 2 ml BID IV FLUSH 09/24/17 09:00 09/27/17 09:22 (Duoneb Neb) 1 ampule Q6HR NEB INH 09/24/17 10:00 09/27/17 09:00 ([facility] [place] [facility] Information) 1 Q361D XX 09/24/17 05:45 09/24/17 05:45 (Chlorhexidine 2% Cloth) 3 pack Taper DAILY@04 TOP 09/25/17 04:00 09/21/18 03:59 09/26/17 04:00 (Chlorhexidine 2% Cloth) 3 pack UNSCH PRN TOP 09/24/17 05:45 (Milk Of Magnesia Liq) 30 ml Q12H PRN PO 09/24/17 05:45 (Senokot) 17.2 mg Q12H PRN PO 09/24/17 05:45 (Dulcolax Supp) 10 mg DAILY PRN RECTAL 09/24/17 05:45 (Lactulose Liq) 30 ml DAILY PRN PO 09/24/17 05:45 (Duoneb Neb) 1 ampule Q4HR NEB PRN NEB 09/24/17 12:00 (Nitroglycerin 2% Oint) 0.5 inch Q8HR PRN TOPICAL 09/24/17 12:00 (Lopressor) 50 mg Q12HR PO 09/24/17 21:00 09/27/17 09:23 (Brilinta) 90 mg BID PO 09/24/17 21:00 09/27/17 09:23 (Lipitor) 40 mg DAILY PO 09/25/17 09:00 09/27/17 09:23 (VANCOMYCIN for oral use only) 125 mg QID PO 09/24/17 13:00 Future Hold 09/26/17 14:46 (Symbicort 160-4.5 Mcg Inh) 2 puff BID INH 09/24/17 21:00 09/27/17 09:23 (Eliquis) 5 mg BID PO 09/25/17 21:00 09/27/17 09:23 (Tylenol) 650 mg Q4H PRN PO 09/25/17 23:30 (Vasotec) 5 mg BID PO 09/26/17 09:00 09/27/17 09:23 (Vaseline Oint) 1 applic UNSCH PRN TOPICAL 09/26/17 18:30 (Cardizem) 90 mg Q6HR PO 09/27/17 00:00 09/27/17 06:23 (Pepcid) 20 mg DAILY PO 09/27/17 09:00 09/27/17 09:23 (Vasotec Inj) 1.25 mg Q6H PRN IV PUSH 09/26/17 19:15 ([place] 5-325 Mg) 1 tab Q6H PRN PO 09/26/17 19:15 09/26/17 23:13 (Lasix) 20 mg DAILY PO 09/27/17 09:00 09/27/17 09:23 (D50w (Vial) Inj) 50 ml UNSCH PRN IV PUSH 09/26/17 19:45 (Glucagon Inj) 1 mg UNSCH PRN OTHER 09/26/17 19:45 (NovoLOG SUPPLEMENTAL SCALE) 1 ACHS SLIDING SCALE SQ 09/26/17 21:00 (KCl) 10 meq Q12HR PO 09/27/17 21:00 Vital Signs / I&O Vital Signs Date Time Temp Pulse Resp B/P (MAP) Pulse Ox O2 Delivery O2 Flow Rate FiO2 09/27/17 11:00 97.6 72 20 126/64 (84) 100 09/27/17 10:00 82 09/27/17 09:00 96 Nasal Cannula 2.00 09/27/17 08:00 53 09/27/17 07:00 97.5 75 35 135/62 (86) 100 09/27/17 06:00 80 09/27/17 04:30 76 14 97 09/27/17 04:15 74 11 99 09/27/17 04:01 80 15 109/55 (73) 100 09/27/17 04:00 97.5 09/27/17 04:00 83 14 100 09/27/17 04:00 83 09/27/17 03:45 79 22 99 09/27/17 03:30 66 17 100 09/27/17 03:15 67 11 98 09/27/17 03:00 64 12 124/66 (85) 99 09/27/17 02:45 70 24 100 09/27/17 02:30 66 15 100 09/27/17 02:15 65 16 99 09/27/17 02:01 72 16 132/59 (83) 100 09/27/17 02:00 72 09/27/17 02:00 72 21 100 09/27/17 01:45 64 13 99 09/27/17 01:30 69 51 99 09/27/17 01:15 76 34 95 09/27/17 01:00 60 12 131/61 (84) 99 09/27/17 00:45 54 28 99 09/27/17 00:30 61 18 100 09/27/17 00:15 53 20 98 09/27/17 00:01 66 20 112/56 (74) 97 09/27/17 00:00 65 09/27/17 00:00 65 26 95 09/27/17 00:00 97.7 09/26/17 23:45 75 27 99 09/26/17 23:30 76 19 09/26/17 23:15 82 27 09/26/17 23:00 93 36 09/26/17 22:45 88 37 09/26/17 22:30 68 13 98 09/26/17 22:15 78 13 98 09/26/17 22:01 75 15 156/74 (101) 99 09/26/17 22:00 76 09/26/17 22:00 76 15 99 09/26/17 21:45 91 24 99 09/26/17 21:30 110 25 90 09/26/17 21:20 97 Nasal Cannula 2.00 09/26/17 21:15 84 26 98 09/26/17 21:01 119 34 151/94 (113) 95 09/26/17 21:00 93 20 99 09/26/17 20:45 82 15 99 09/26/17 20:30 70 13 99 09/26/17 20:15 77 13 99 09/26/17 20:01 76 19 154/75 (101) 99 09/26/17 20:00 90 09/26/17 20:00 80 15 99 09/26/17 20:00 97.9 80 21 154/75 (101) 99 09/26/17 19:45 71 13 97 09/26/17 19:30 79 13 98 09/26/17 19:15 75 14 98 09/26/17 19:01 75 17 162/69 (100) 100 09/26/17 18:00 95 25 180/92 (121) 100 09/26/17 18:00 95 09/26/17 17:00 92 18 171/82 (111) 100 09/26/17 16:00 97.8 83 17 160/68 (98) 100 09/26/17 16:00 98.0 83 17 160/68 (98) 100 09/26/17 16:00 83 09/26/17 15:01 107 37 199/91 (127) 99 09/26/17 14:00 104 28 162/66 (98) 98 09/26/17 14:00 104 09/26/17 12:00 97.8 76 16 146/74 (98) 99 09/26/17 12:00 76 09/26/17 12:00 97.7 76 16 146/74 (98) 99 I/O 09/26/17 09/26/17 09/26/17 09/27/17 09/27/17 09/27/17 07:00 15:00 23:00 07:00 15:00 23:00 Intake Total 200 ml 0 ml 240 ml Output Total 1600 ml 500 ml Balance -1400 ml -500 ml 240 ml Intake Oral 200 ml 0 ml 240 ml Output Urine Total 1600 ml 500 ml # Voids 2 # Bowel Movements 0 0 1 Physical Exam GENERAL: Well developed, well nourished. No acute distress. HEENT: Jugular venous pressure is normal. CHEST: Lungs clear to auscultation anteriorly. CARDIAC: Irregular rate and rhythm without S3, S4. II/ KATHRINE base. Normal S2. ABDOMEN: Soft, nontender, no hepatosplenomegaly. Bowel sounds present. EXTREMITIES: No clubbing, cyanosis, or edema. Laboratory Laboratory Tests Test 09/27/17 06:05 White Blood Count 6.0 TH/MM3 Red Blood Count 3.53 MIL/MM3 Hemoglobin 10.9 GM/DL Hematocrit 33.1 % Mean Corpuscular Volume 93.8 FL Mean Corpuscular Hemoglobin 30.8 PG Mean Corpuscular Hemoglobin Concent 32.8 % Red Cell Distribution Width 15.0 % Platelet Count 258 TH/MM3 Mean Platelet Volume 8.6 FL Neutrophils (%) (Auto) 69.0 % Lymphocytes (%) (Auto) 15.9 % Monocytes (%) (Auto) 9.9 % Eosinophils (%) (Auto) 4.8 % Basophils (%) (Auto) 0.4 % Neutrophils # (Auto) 4.1 TH/MM3 Lymphocytes # (Auto) 0.9 TH/MM3 Monocytes # (Auto) 0.6 TH/MM3 Eosinophils # (Auto) 0.3 TH/MM3 Basophils # (Auto) 0.0 TH/MM3 CBC Comment DIFF FINAL Differential Comment Blood Urea Nitrogen 14 MG/DL Creatinine 1.19 MG/DL Random Glucose 109 MG/DL Calcium Level 9.2 MG/DL Phosphorus Level 2.9 MG/DL Magnesium Level 2.0 MG/DL Sodium Level 142 MEQ/L Potassium Level 3.4 MEQ/L Chloride Level 105 MEQ/L Carbon Dioxide Level 29.2 MEQ/L Anion Gap 8 MEQ/L Estimat Glomerular Filtration Rate 44 ML/MIN B-Type Natriuretic Peptide 446 PG/ML Imaging Last 24 hours Impressions Chest X-Ray 09/27/17 0700 Signed Impressions: CONCLUSION: Mild atelectasis right medial lung base. Interim extubation and nasogastric tub e removal. Assessment and Plan Problem List: (1) Paroxysmal atrial fibrillation ICD Codes: I48.0 - Paroxysmal atrial fibrillation Status: Chronic Plan: Remains in atrial fibrillation. HR's controlled.. Continue apixaban, diltiazem (change to CD form), metoprolol. Will f/u as needed. (2) CHF (congestive heart failure) ICD Codes: I50.9 - Heart failure, unspecified Status: Acute Plan: Stable s/p extubation. No definite CHF by today's CXR and exam. EF by echo last month 45-50%. CHF possibly precipitated by uncontrolled HR's. Continue beta rob, JAMES-I. Will f/u as needed. (3) CAD (coronary artery disease) ICD Codes: I25.10 - Atherosclerotic heart disease of [place] coronary artery without angina pectoris Status: Chronic Plan: Stable. No recent angina. Continue Brilinta. Code Status full code Discussed Condition With patient Problem Qualifiers (1) CHF (congestive heart failure): Qualified Codes: I50.23 - Acute on chronic systolic (congestive) heart failure (2) CAD (coronary artery disease): Qualified Codes: I25.10 - Atherosclerotic heart disease of [place] coronary artery without angina pectoris Kosta Augustine MD September 27, 2017 11:31
--- NOTE | 2017-09-27 11:40 | HHI.GIFU ---
Subjective Remarks Off the ventilator sitting up in the bed sleeping on liquids Mild altered mental status but answering a few questions Patient states EGD colonoscopy years ago in another part of [place] Currently on oxygen at 2 L no shortness of breath No abdominal pain (Shirlene Avila) Objective Vitals I&O Vital Signs Date Time Temp Pulse Resp B/P (MAP) Pulse Ox O2 Delivery O2 Flow Rate FiO2 09/27/17 11:00 97.6 72 20 126/64 (84) 100 09/27/17 10:00 82 09/27/17 09:00 96 Nasal Cannula 2.00 09/27/17 08:00 53 09/27/17 07:00 97.5 75 35 135/62 (86) 100 09/27/17 06:00 80 09/27/17 04:30 76 14 97 09/27/17 04:15 74 11 99 09/27/17 04:01 80 15 109/55 (73) 100 09/27/17 04:00 97.5 09/27/17 04:00 83 14 100 09/27/17 04:00 83 09/27/17 03:45 79 22 99 09/27/17 03:30 66 17 100 09/27/17 03:15 67 11 98 09/27/17 03:00 64 12 124/66 (85) 99 09/27/17 02:45 70 24 100 09/27/17 02:30 66 15 100 09/27/17 02:15 65 16 99 09/27/17 02:01 72 16 132/59 (83) 100 09/27/17 02:00 72 09/27/17 02:00 72 21 100 09/27/17 01:45 64 13 99 09/27/17 01:30 69 51 99 09/27/17 01:15 76 34 95 09/27/17 01:00 60 12 131/61 (84) 99 09/27/17 00:45 54 28 99 09/27/17 00:30 61 18 100 09/27/17 00:15 53 20 98 09/27/17 00:01 66 20 112/56 (74) 97 09/27/17 00:00 65 09/27/17 00:00 65 26 95 09/27/17 00:00 97.7 09/26/17 23:45 75 27 99 09/26/17 23:30 76 19 09/26/17 23:15 82 27 09/26/17 23:00 93 36 09/26/17 22:45 88 37 09/26/17 22:30 68 13 98 09/26/17 22:15 78 13 98 09/26/17 22:01 75 15 156/74 (101) 99 09/26/17 22:00 76 09/26/17 22:00 76 15 99 09/26/17 21:45 91 24 99 09/26/17 21:30 110 25 90 09/26/17 21:20 97 Nasal Cannula 2.00 09/26/17 21:15 84 26 98 09/26/17 21:01 119 34 151/94 (113) 95 09/26/17 21:00 93 20 99 09/26/17 20:45 82 15 99 09/26/17 20:30 70 13 99 09/26/17 20:15 77 13 99 09/26/17 20:01 76 19 154/75 (101) 99 09/26/17 20:00 90 09/26/17 20:00 80 15 99 09/26/17 20:00 97.9 80 21 154/75 (101) 99 09/26/17 19:45 71 13 97 09/26/17 19:30 79 13 98 09/26/17 19:15 75 14 98 09/26/17 19:01 75 17 162/69 (100) 100 09/26/17 18:00 95 25 180/92 (121) 100 09/26/17 18:00 95 09/26/17 17:00 92 18 171/82 (111) 100 09/26/17 16:00 97.8 83 17 160/68 (98) 100 09/26/17 16:00 98.0 83 17 160/68 (98) 100 09/26/17 16:00 83 09/26/17 15:01 107 37 199/91 (127) 99 09/26/17 14:00 104 28 162/66 (98) 98 09/26/17 14:00 104 09/26/17 12:00 97.8 76 16 146/74 (98) 99 09/26/17 12:00 76 09/26/17 12:00 97.7 76 16 146/74 (98) 99 I/O 09/26/17 09/26/17 09/26/17 09/27/17 09/27/17 09/27/17 07:00 15:00 23:00 07:00 15:00 23:00 Intake Total 200 ml 0 ml 240 ml Output Total 1600 ml 500 ml Balance -1400 ml -500 ml 240 ml Intake Oral 200 ml 0 ml 240 ml Output Urine Total 1600 ml 500 ml # Voids 2 # Bowel Movements 0 0 1 Laboratory Laboratory Tests Test 09/27/17 06:05 White Blood Count 6.0 Red Blood Count 3.53 Hemoglobin 10.9 Hematocrit 33.1 Mean Corpuscular Volume 93.8 Mean Corpuscular Hemoglobin 30.8 Mean Corpuscular Hemoglobin Concent 32.8 Red Cell Distribution Width 15.0 Platelet Count 258 Mean Platelet Volume 8.6 Neutrophils (%) (Auto) 69.0 Lymphocytes (%) (Auto) 15.9 Monocytes (%) (Auto) 9.9 Eosinophils (%) (Auto) 4.8 Basophils (%) (Auto) 0.4 Neutrophils # (Auto) 4.1 Lymphocytes # (Auto) 0.9 Monocytes # (Auto) 0.6 Eosinophils # (Auto) 0.3 Basophils # (Auto) 0.0 CBC Comment DIFF FINAL Differential Comment Blood Urea Nitrogen 14 Creatinine 1.19 Random Glucose 109 Calcium Level 9.2 Phosphorus Level 2.9 Magnesium Level 2.0 Sodium Level 142 Potassium Level 3.4 Chloride Level 105 Carbon Dioxide Level 29.2 Anion Gap 8 Estimat Glomerular Filtration Rate 44 B-Type Natriuretic Peptide 446 Date/Time Source Procedure Growth Status 09/24/17 05:47 Sputum Endotracheal Gram Stain - Final Complete 09/24/17 05:47 Sputum Endotracheal Sputum Culture - Final LIGHT GROWTH NORMAL RESPIRATORY KEMAL Complete 09/24/17 03:07 Urine Catheterized Urine Urine Culture - Final NO GROWTH IN 48 HOURS. Complete Imaging Last Impressions Chest X-Ray 09/27/17 0700 Signed Impressions: CONCLUSION: Mild atelectasis right medial lung base. Interim extubation and nasogastric tub e removal. Abdomen Ultrasound 09/24/17 0000 Signed Impressions: CONCLUSION: 1. 1.8 cm hypoechoic subcapsular mass in the right lobe of the liver. This may represent focal fatty infiltration. However, differential considerations inclu de hemangioma and malignancy. Further characterization may be performed with MR I exam on an outpatient basis as clinically warranted. 2. Slightly prominent common bile duct and pancreatic duct without focal abnor mality. This is nonspecific although a partial ampullary obstruction cannot be entirely excluded. 3. Gallbladder polyps versus adherent stones. No sonographic evidence for chol ecystitis. 4. Trace ascites and small bilateral pleural effusions. Physical Exam HEENT: normocephalic; atraumatic; extubated, obese morbid NECK: Neck is supple, short obese CHEST: Mild diminished breath sounds CARDIAC: RRR ABDOMEN: Soft, large, obese, round, positive bowel sounds EXTREMITIES: Mild lower extremity edema. 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 (Shirlene Avila) Assessment and Plan Assessment: (1) Morbid obesity ICD Codes: E66.01 - Morbid (severe) obesity due to excess calories (2) C. difficile colitis ICD Codes: A04.72 - Enterocolitis due to Clostridium difficile, not specified as recurrent Plan 72-year-old morbidly obese female admitted on 09/24/2017 with shortness of breath and rapid atrial fib which required intubation on admission. She is currently being managed in the intensive care unit now with a controlled heart rate of atrial fib 81 and on sedation and ventilator management. Currently patient has some mild elevated LFTs which is probably related to shock liver and she is also positive for C. difficile. Current hemoglobin on admission 11.6 now 10.6. Was noted on admission that she had maroon stools and had been on Eliquis and GI was consulted. According to the nurses she has had no further maroon stools, and Eliquis is on hold. Patient was discharged sometime back in August to a [place] [facility] and is now returned back to the hospital positive for C. difficile. Current abdomen is soft round, obese,, NG tube has some small red specks and clear serous drainage noted and connected to suction. 09/25/2017, abdominal ultrasound noted on 09/24/2017 which showed 1.8 hyper in miotic subcapsular mass in the right lobe of liver this may be fatty liver infiltrations but needs to consider hemangioma or malignancy further characteristics may be performed per MR exam on an outpatient basis if warranted. Slightly prominent common bile duct and pancreatic duct without focal abnormality. This is nonspecific although a partial ampullary obstruction cannot be entirely excluded. Gallbladder polyps versus adherent stones no evidence of cholecystitis. Trace of ascites and small bilateral pleural effusions. Labs include alpha-fetoprotein 2.1 LFTs normal with AST 26, ALT 44, alkaline phosphatase 131, WBC count 7.2, hemoglobin 12. Patient may have cystic mass versus hemangioma and will need further evaluation once she is stable. Tumor markers normal. No further maroon stools seen since Eliquis has been held. No family present 09/28/2017 patient has been extubated greater than 24 hours managing with oxygen at 2 L. Patient does note history of EGD and colonoscopy years ago but does not remember exactly what the results were. She states history of GERD and takes [id number] medicines as needed. She does note history of constipation. Discussed possible EGD colonoscopy with her and currently she is refusing colonoscopy. Abdominal ultrasound results noted. No further rectal bleeding noted this was possibly due to her Eliquis. Current hemoglobin 10.9. Anemia Could be related to subcapsular bleed. Will schedule pending EGD in the a.m. evaluate for any further upper GI bleeding after MRI results in. ABD MRI ordered for a.m. to evaluate subcapsular mass in the right lobe of the liver. Tumor marker reveals a slight elevation of CA 125 but unclear significance for now. Plan Diet PPI Antiemetics MRI ABD in the morning. evaluate subcapsular bleed Consent for EGD in the a.m. pending MRI ABD. Call GI in the am . Audrey العلي. Monitor for any further bleeding or maroon stools , Hemoccult if needed Transfuse as necessary Monitor labs, Further recommendations to follow Patient was seen per myself and Dr. Gleason, note was written on his behalf (Shirlene Avila) Physician Comments Patient seen and examined Agree with above Continue with current supportive care Monitor labs Agree with MRI of the abdomen EGD tomorrow (Tomasz Gleason MD) Shirlene Avila September 27, 2017 11:40 Tomasz Gleason MD September 27, 2017 22:35
[2017-09-27] MEDS ORDERED: POTASSIUM CHLORIDE 10 MEQ CONTROLLED RELEASE TAB PO SCH (21:00)
[2017-09-27] MEDS: ACETAMINOPHEN/HYDROcodone 325 MG/5 MG TAB PO PRN (22:19)
[2017-09-27] MEDS: DILTIAZEM-CD 300 MG CAP ER PO SCH (22:26)
[2017-09-27] MEDS ORDERED: PROMETHAZINE INJ 25 MG/ML VIAL IM PRN (22:45)
[2017-09-27] MEDS ORDERED: ONDANSETRON ODT 4 MG TAB PO PRN (22:45)
[2017-09-28] VITALS (31 sets, daily range): BP systolic 106–145; BP diastolic 57–69; PULSE 63–84; RESP 13–151; TEMP 97.3–98.1; O2SAT 95–100
[2017-09-28] MEDS: RESP: ALBUTEROL 2.5 MG/IPRATROPIUM 0.5 MG NEB (SCH) INH ×2 (03:50→09:06)
[2017-09-28] MEDS: CHLORHEXIDINE GLUCONATE 2 % 1 PACK (2 CLOTHS) TOP SCH (04:00)
[2017-09-28 05:40] LABS: AUTOMATED NEUTROPHIL # 3.7 TH/MM3 (1.8-7.7); BASOPHIL % 0.5 % (0.0-2.0); EOSINOPHIL # 0.3 TH/MM3 (0-0.4); EOSINOPHIL % 5.7 % (0.0-4.0); HEMOGLOBIN 10.9 GM/DL (11.6-15.3); LYMPH % 21.3 % (9.0-44.0); LYMPHOCYTE # 1.3 TH/MM3 (1.0-4.8); MEAN CELL VOLUME 93.4 FL (80.0-100.0); MEAN CORPUSCULAR HGB CONC 33.2 % (32.0-36.0); MEAN PLATELET VOLUME 8.8 FL (7.0-11.0); MONO % 11.7 % (0.0-8.0); MONOCYTE # 0.7 TH/MM3 (0-0.9); NEUT % 60.8 % (16.0-70.0); PLATELET COUNT 264 TH/MM3 (150-450); RED BLOOD COUNT 3.53 MIL/MM3 (4.00-5.30)
[2017-09-28] MEDS: ACETAMINOPHEN/HYDROcodone 325 MG/5 MG TAB PO PRN ×2 (05:50→21:49)
[2017-09-28 06:07] LABS: BICARBONATE 29.2 MEQ/L (21.0-32.0); CALCIUM 9.4 MG/DL (8.5-10.1); CREATININE 1.29 MG/DL (0.50-1.00)
[2017-09-28] MEDS: INSULIN ASPART SUPPLEMENTAL SCALE SQ SCH ×4 (08:00→21:00)
[2017-09-28] MEDS: TICAGRELOR 90 MG TAB PO SCH (09:00)
[2017-09-28] MEDS: APIXABAN 5 MG TABLET PO SCH (09:00)
--- NOTE | 2017-09-28 09:56 | HHI.FPPN ---
Subjective Remarks Mrs. Sosa was afebrile with stable vital signs overnight. Elevated RR per EMR ( 26-33 bpm); per discussion with nursing staff patient has not actually been tachypneic. Patient accompanied by family today. Patient states that she is doing well. NO reported chest pain, shortness of breath, abdominal pain, or abnormal urination. 2 BM overnight; patient states one of these was soft but the other wasn't. Patient reports "spit"ting up yesterday (per discussion with night team , patient received Phenergan for this). (Sylvester Valentin MD R3) Objective Vitals Vital Signs Date Time Temp Pulse Resp B/P (MAP) Pulse Ox O2 Delivery O2 Flow Rate FiO2 09/28/17 09:08 98 Nasal Cannula 2.00 09/28/17 06:00 72 09/28/17 05:15 63 16 99 09/28/17 05:00 70 31 98 09/28/17 04:45 65 33 99 09/28/17 04:30 76 130 99 09/28/17 04:15 67 87 98 09/28/17 04:00 74 09/28/17 04:00 74 116 106/57 (73) 98 09/28/17 04:00 97.8 09/28/17 03:45 72 95 99 09/28/17 03:30 69 101 99 09/28/17 03:15 67 151 99 09/28/17 03:00 67 136 99 09/28/17 02:45 63 134 99 09/28/17 02:30 72 19 100 09/28/17 02:15 79 105 99 09/28/17 02:01 74 31 115/58 (77) 99 09/28/17 02:00 72 09/28/17 02:00 72 17 98 09/28/17 01:45 73 17 98 09/28/17 01:30 76 25 99 09/28/17 01:15 76 18 99 09/28/17 01:00 76 13 98 09/28/17 00:45 76 26 99 09/28/17 00:30 78 14 99 09/28/17 00:15 82 26 99 09/28/17 00:01 84 27 131/65 (87) 09/28/17 00:00 80 21 09/28/17 00:00 98.1 09/28/17 00:00 80 09/27/17 23:45 89 24 83 09/27/17 23:30 88 16 99 09/27/17 23:15 79 25 99 09/27/17 23:00 89 27 139/88 (105) 99 09/27/17 22:45 92 30 99 09/27/17 22:30 95 115 99 09/27/17 22:15 99 142 100 09/27/17 22:00 89 144 145/67 (93) 99 09/27/17 22:00 89 09/27/17 21:45 91 100 99 09/27/17 21:30 106 41 100 09/27/17 21:25 100 Nasal Cannula 2.00 09/27/17 21:15 98 29 93 09/27/17 21:01 85 122 126/77 (93) 100 09/27/17 21:00 89 24 98 09/27/17 20:45 86 111 98 09/27/17 20:30 91 33 99 09/27/17 20:15 99 18 90 09/27/17 20:01 91 127 112/69 (83) 97 09/27/17 20:00 98.0 09/27/17 20:00 81 09/27/17 20:00 81 121 99 09/27/17 19:45 103 28 96 09/27/17 19:30 92 26 99 09/27/17 19:15 99 24 100 09/27/17 18:00 105 09/27/17 16:00 92 09/27/17 15:00 97.7 88 14 108/69 (82) 100 09/27/17 14:00 88 09/27/17 12:00 78 09/27/17 11:00 97.6 72 20 126/64 (84) 100 09/27/17 10:00 82 I/O 09/27/17 09/27/17 09/27/17 09/28/17 09/28/17 09/28/17 07:00 15:00 23:00 07:00 15:00 23:00 Intake Total 240 ml 280 ml 280 ml Balance 240 ml 280 ml 280 ml Intake Oral 240 ml 280 ml 280 ml # Voids 2 3 2 # Bowel Movements 1 3 1 (Sylvester Valentin MD R3) Result Diagram: 5/28/18 0458 5/28/18 0458 Imaging Last Impressions Chest X-Ray 09/27/17 0700 Signed Impressions: CONCLUSION: Mild atelectasis right medial lung base. Interim extubation and nasogastric tub e removal. Abdomen Ultrasound 09/24/17 0000 Signed Impressions: CONCLUSION: 1. 1.8 cm hypoechoic subcapsular mass in the right lobe of the liver. This may represent focal fatty infiltration. However, differential considerations inclu de hemangioma and malignancy. Further characterization may be performed with MR I exam on an outpatient basis as clinically warranted. 2. Slightly prominent common bile duct and pancreatic duct without focal abnor mality. This is nonspecific although a partial ampullary obstruction cannot be entirely excluded. 3. Gallbladder polyps versus adherent stones. No sonographic evidence for chol ecystitis. 4. Trace ascites and small bilateral pleural effusions. Objective Remarks GENERAL: NAD SKIN: No visible rashes. Sacral ulcer not visualized today EYES: EOM grossly I. No conjunctival injection or drainage. ENT: MMM CARDIOVASCULAR: Regular rate and rhythm. No MRG RESPIRATORY: Normal rate and effort. On room air. CTAB; decreased breath sounds without wheezing or focal congestion GASTROINTESTINAL: Abdomen soft, non-distended, non-tender. MUSCULOSKELETAL: Extremities without edema. NEUROLOGICAL: Awake and alert. Oriented to month/year/location. Cranial nerves grossly intact. Grossly normal peripheral motor and sensory function. Normal speech. (Sylvester Valentin MD R3) A/P Assessment and Plan 72 yo smoker with HTN, CHF, COPD, DM, AFib, CAD presenting with: (Sylvester Valentin MD R3) Attending Attestation Patient seen and examined with Dr Valentin EMR reviewed Agree with above documentation See current orders (En Sun MD) Problem List: (1) Respiratory failure ICD Codes: J96.90 - Respiratory failure, unspecified, unspecified whether with hypoxia or hypercapnia Status: Resolved Plan: 09/28: Breathing well on room air. Normal rate Impression: Patient intubated 09/24 after failing CPAP in ED and having desaturations <70%. ABG on admission with pH 7.25. Patient improved and was subsequently extubated. Likely due to RVR in patient with significant CAD versus pulmonary edema / CHF based on initial CXR and BNP in the 600s Now resolved, tolerated extubation well; still needing oxygen - Manage comorbid conditions as below (2) CHF (congestive heart failure) ICD Codes: I50.9 - Heart failure, unspecified Status: Acute Plan: Impression: Symptomatically improved Initially presented with respiratory failure, pulmonary edema on CXR Echo 08/11/17 with EF 45-50%, low-normal to mild systolic dysfunction BNP in 600s on admission. Per Cardiology; possibly precipitated by uncontrolled HR - Resume home Lasix 20 mg PO daily -Continue KCl 10 mEq daily - Cardiology following, appreciate recs - Continue home BB - Continue enalapril 5 mg BID (3) Atrial fibrillation with RVR ICD Codes: I48.91 - Unspecified atrial fibrillation Status: Resolved Plan: Presented with AFib in RVR, HR now at goal Troponin negative x3 - Cardiology consulted, appreciate recs - Diltiazem 90 mg PO Q6H -Metoprolol 50mg BID - Anticoagulation with Eliquis - Continue telemetry (4) CAD (coronary artery disease) ICD Codes: I25.10 - Atherosclerotic heart disease of [place] coronary artery without angina pectoris Status: Chronic Plan: Impression: CAD; no recent angina symptoms. Troponin negative x3 - Cardiology consulted, assistance appreciated - Continue Brillinta - Continue statin -JAMES and BB as above (5) Delirium ICD Codes: R41.0 - Disorientation, unspecified Status: Resolved Plan: 09/27: No concern for delirium at this time Impression: Previous delirium likely related to sedation and ICU stay; labs and exam benign - Ensure pain control: Tylenol with [place] PRN for breakthrough - Avoid restraints if possible - Monitor clinically (6) Stage 1 skin ulcer of sacral region ICD Codes: L98.429 - Non-pressure chronic ulcer of back with unspecified severity Status: Acute Plan: Exam shows stage 1 ulcer with no skin breakdown - Ulcer prevention protocol - Consider routine wound care consult if does not improve (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 ICD Codes: Z22.1 - Carrier of other intestinal infectious diseases Plan: 09/28: No concern for Cdiff infection currently based on stool consistency Impression: C difficile toxin PCR positive, however patient had no diarrhea or leukocytosis or fever Suspect likely colonization - Hold vancomycin PO - Trend vitals, CBC; restart vancomycin if symptoms or signs of colitis develop (8) Abnormal findings on diagnostic imaging of abdomen ICD Codes: R93.5 - Abnormal findings on diagnostic imaging of other abdominal regions, including retroperitoneum Status: Acute Plan: Impression: Mild LFT elevations and concern for maroon colored stools on admission US Abdomen 09/24- 1.8 cm hypoechoic subcapsular mass in the right lobe of the liver. This may represent focal fatty infiltration. However, differential considerations include hemangioma and malignancy. Further characterization may be performed with MRI exam on an outpatient basis as clinically warranted. Slightly prominent common bile duct and pancreatic duct without focal abnormality. This is nonspecific although a partial ampullary obstruction cannot be entirely excluded. Gallbladder polyps versus adherent stones. No sonographic evidence for cholecystitis. Labs: LFT's: 09/24 (AST 50, ALT 63, ALKP 136) -> 09/25 (AST 50, ALT 63, ALKP 136) - likely elevated transiently from CHF CA-125 slightly elevated CEA, AFP, CA 19-9 normal -GI consulted -Plan for EGD -NPO after midnight -Hold Brilinta and Eliquis -Monitor H/H -CT abdomen w/o contrast (9) COPD (chronic obstructive pulmonary disease) ICD Codes: J44.9 - Chronic obstructive pulmonary disease, unspecified Status: Chronic Plan: Possibly contributed to respiratory failure, though clinical picture more likely CHF Sputum culture with light growth normal respiratory aurora - Continue DuoNeb Q6H scheduled, Q6H PRN - Continue home Symbicort (10) Diabetes ICD Codes: E11.9 - Type 2 diabetes mellitus without complications Plan: On metformin at home, in good control - Hold metformin - Accu-cheks, low novolog scale - hypoglycemia protocol - glucose goal 140-180 (11) Hypertension ICD Codes: I10 - Essential (primary) hypertension Status: Chronic Plan: Impression: Recently normotenstive - Continue beta rob, ACEi, diltiazem - Vasotec PRN BP > 200/100 (12) Chronic kidney disease (CKD) ICD Codes: N18.9 - Chronic kidney disease, unspecified Status: Chronic Plan: 09/28: Cr 1.29 Impression: Mild CKD chronically; Baseline creatinine 1.6 on review of outpatient record - Renally dose meds - Trend BMP (13) Tobacco use disorder ICD Codes: F17.200 - Nicotine dependence, unspecified, uncomplicated Plan: Can offer nicotine patch if patient requests (14) FEN/GI/PPx Plan: Fluids: Caution given CHF. PO only for now. Elecs: Monitor, replete PRN Nutrition: Diet heart healthy with 2 gm sodium restriction DVT: On Eliquis GI: Famotidine 20 mg daily Dispo: Will transfer to med/surg floor. Discharge plan to be based on PT/OT recs , need for further O2 Case discussed with Dr. Sun (Sylvester Valentin MD R3) Problem Qualifiers (1) Respiratory failure: Qualified Codes: J96.01 - Acute respiratory failure with hypoxia (2) CHF (congestive heart failure): Qualified Codes: I50.23 - Acute on chronic systolic (congestive) heart failure (3) CAD (coronary artery disease): Qualified Codes: I25.10 - Atherosclerotic heart disease of [place] coronary artery without angina pectoris (4) COPD (chronic obstructive pulmonary disease): Qualified Codes: J44.9 - Chronic obstructive pulmonary disease, unspecified (5) Diabetes: Qualified Codes: E11.22 - Type 2 diabetes mellitus with diabetic chronic kidney disease; N18.3 - Chronic kidney disease, stage 3 (moderate) (6) Hypertension: Qualified Codes: I10 - Essential (primary) hypertension (7) Chronic kidney disease (CKD): Qualified Codes: N18.3 - Chronic kidney disease, stage 3 (moderate) Sylvester Valentin MD R3 September 28, 2017 09:56 En Sun MD September 29, 2017 18:26
--- NOTE | 2017-09-28 11:02 | HHI.GIFU ---
Subjective Remarks Pt resting in bed, in no apparent distress Denies abdominal pain Spoke with RN Steffanie, she states no BM yet today Pt denies nausea, vomiting (Audrey Alexandra) Objective Vitals I&O Vital Signs Date Time Temp Pulse Resp B/P (MAP) Pulse Ox O2 Delivery O2 Flow Rate FiO2 09/28/17 09:08 98 Nasal Cannula 2.00 09/28/17 06:00 72 09/28/17 05:15 63 16 99 09/28/17 05:00 70 31 98 09/28/17 04:45 65 33 99 09/28/17 04:30 76 130 99 09/28/17 04:15 67 87 98 09/28/17 04:00 74 09/28/17 04:00 74 116 106/57 (73) 98 09/28/17 04:00 97.8 09/28/17 03:45 72 95 99 09/28/17 03:30 69 101 99 09/28/17 03:15 67 151 99 09/28/17 03:00 67 136 99 09/28/17 02:45 63 134 99 09/28/17 02:30 72 19 100 09/28/17 02:15 79 105 99 09/28/17 02:01 74 31 115/58 (77) 99 09/28/17 02:00 72 09/28/17 02:00 72 17 98 09/28/17 01:45 73 17 98 09/28/17 01:30 76 25 99 09/28/17 01:15 76 18 99 09/28/17 01:00 76 13 98 09/28/17 00:45 76 26 99 09/28/17 00:30 78 14 99 09/28/17 00:15 82 26 99 09/28/17 00:01 84 27 131/65 (87) 09/28/17 00:00 80 21 09/28/17 00:00 98.1 09/28/17 00:00 80 09/27/17 23:45 89 24 83 09/27/17 23:30 88 16 99 09/27/17 23:15 79 25 99 09/27/17 23:00 89 27 139/88 (105) 99 09/27/17 22:45 92 30 99 09/27/17 22:30 95 115 99 09/27/17 22:15 99 142 100 09/27/17 22:00 89 144 145/67 (93) 99 09/27/17 22:00 89 09/27/17 21:45 91 100 99 09/27/17 21:30 106 41 100 09/27/17 21:25 100 Nasal Cannula 2.00 09/27/17 21:15 98 29 93 09/27/17 21:01 85 122 126/77 (93) 100 09/27/17 21:00 89 24 98 09/27/17 20:45 86 111 98 09/27/17 20:30 91 33 99 09/27/17 20:15 99 18 90 09/27/17 20:01 91 127 112/69 (83) 97 09/27/17 20:00 98.0 09/27/17 20:00 81 09/27/17 20:00 81 121 99 09/27/17 19:45 103 28 96 09/27/17 19:30 92 26 99 09/27/17 19:15 99 24 100 09/27/17 18:00 105 09/27/17 16:00 92 09/27/17 15:00 97.7 88 14 108/69 (82) 100 09/27/17 14:00 88 09/27/17 12:00 78 09/27/17 11:00 97.6 72 20 126/64 (84) 100 I/O 09/27/17 09/27/17 09/27/17 09/28/17 09/28/17 09/28/17 07:00 15:00 23:00 07:00 15:00 23:00 Intake Total 240 ml 280 ml 280 ml Balance 240 ml 280 ml 280 ml Intake Oral 240 ml 280 ml 280 ml # Voids 2 3 2 # Bowel Movements 1 3 1 Laboratory Laboratory Tests Test 09/28/17 04:58 White Blood Count 6.0 Red Blood Count 3.53 Hemoglobin 10.9 Hematocrit 33.0 Mean Corpuscular Volume 93.4 Mean Corpuscular Hemoglobin 31.0 Mean Corpuscular Hemoglobin Concent 33.2 Red Cell Distribution Width 15.0 Platelet Count 264 Mean Platelet Volume 8.8 Neutrophils (%) (Auto) 60.8 Lymphocytes (%) (Auto) 21.3 Monocytes (%) (Auto) 11.7 Eosinophils (%) (Auto) 5.7 Basophils (%) (Auto) 0.5 Neutrophils # (Auto) 3.7 Lymphocytes # (Auto) 1.3 Monocytes # (Auto) 0.7 Eosinophils # (Auto) 0.3 Basophils # (Auto) 0.0 CBC Comment DIFF FINAL Differential Comment Blood Urea Nitrogen 15 Creatinine 1.29 Random Glucose 94 Calcium Level 9.4 Sodium Level 142 Potassium Level 3.6 Chloride Level 105 Carbon Dioxide Level 29.2 Anion Gap 8 Estimat Glomerular Filtration Rate 40 Date/Time Source Procedure Growth Status 09/24/17 05:47 Sputum Endotracheal Gram Stain - Final Complete 09/24/17 05:47 Sputum Endotracheal Sputum Culture - Final LIGHT GROWTH NORMAL RESPIRATORY KEMAL Complete 09/24/17 03:07 Urine Catheterized Urine Urine Culture - Final NO GROWTH IN 48 HOURS. Complete Imaging Last Impressions Chest X-Ray 09/27/17 0700 Signed Impressions: CONCLUSION: Mild atelectasis right medial lung base. Interim extubation and nasogastric tub e removal. Abdomen Ultrasound 09/24/17 0000 Signed Impressions: CONCLUSION: 1. 1.8 cm hypoechoic subcapsular mass in the right lobe of the liver. This may represent focal fatty infiltration. However, differential considerations inclu de hemangioma and malignancy. Further characterization may be performed with MR I exam on an outpatient basis as clinically warranted. 2. Slightly prominent common bile duct and pancreatic duct without focal abnor mality. This is nonspecific although a partial ampullary obstruction cannot be entirely excluded. 3. Gallbladder polyps versus adherent stones. No sonographic evidence for chol ecystitis. 4. Trace ascites and small bilateral pleural effusions. Physical Exam HEENT: Normocephalic; atraumatic CHEST: Even/unlabored CARDIAC: Irregularly irregular, rate controlled ABDOMEN: Soft, obese, nontender, bowel sounds active EXTREMITIES: Mild lower extremity edema. 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 difficile colitis ICD Codes: A04.72 - Enterocolitis due to Clostridium difficile, not specified as recurrent Plan Assessment: - Maroon colored stools, consult to evaluate whether Eliquis could be continued- this has already been restarted per cardiology- pt also on Brilinta for CAD - C Diff toxin positive, noted to be likely a carrier given lack of symptoms PO Vanco currently on hold, recommended to restart if symptoms develop. - Elevated LFTs On 09/24 AST-50 ALT-63 Alk phos-136 T bili-0.5 AFP-2.1 CEA-1.9 CA 19-9 19 Hepatitis panel negative US abdomen (09/24) --> 1.8 cm hypoechoic subcapsular mass in the right lobe of the liver. This may represent focal fatty infiltration. However, differential considerations include hemangioma and malignancy. Further characterization may be performed with MRI exam on an outpatient basis as clinically warranted. Slightly prominent common bile duct and pancreatic duct without focal abnormality. This is nonspecific although a partial ampullary obstruction cannot be entirely excluded. Gallbladder polyps versus adherent stones. No sonographic evidence for cholecystitis. Trace ascites and small bilateral pleural effusions. Pt unable to have MRI due to rods in her back - Anemia, normocytic - A-fib RVR on admission, now rate controlled- on Eliquis - CAD- On Brilinta- serial troponin negative- cardiology following as needed Plan EGD tomorrow Obtain consent NPO after MN Ok for diet today Hold Brilinta and Eliquis Monitor H/H CT abdomen W/O contrast (poor renal function) Further recommendations based on findings of above Pt has been seen and examined by myself and Dr. San and this note is written on his behalf (Audrey Alexandra) Physician Comments Seen and examined with SEVERIANO, no bleeding reported today. EGD rescheduled for tomorrow morning. Discussed with pt. (Darion San MD) Audrey Alexandra September 28, 2017 11:02 Darion San MD September 28, 2017 14:30
[2017-09-28] MEDS: BUDESONIDE-FORMOTEROL 160/4.5 MCG INHALER INH SCH ×2 (11:13→20:57)
[2017-09-28] MEDS: FAMOTIDINE 20 MG TAB PO SCH (11:14)
[2017-09-28] MEDS: ATORVASTATIN 40 MG TAB PO SCH (11:14)
[2017-09-28] MEDS: METOPROLOL TARTRATE 50 MG TAB PO SCH ×2 (11:15→20:56)
[2017-09-28] MEDS: ENALAPRIL MALEATE 5 MG TAB PO SCH ×2 (11:15→20:56)
[2017-09-28] MEDS: FUROSEMIDE 20 MG TAB PO SCH (11:15)
[2017-09-28] MEDS: POTASSIUM CHLORIDE 10 MEQ CONTROLLED RELEASE TAB PO SCH (11:15)
[2017-09-28] MEDS: DILTIAZEM-CD 300 MG CAP ER PO SCH (11:15)
[2017-09-28] MEDS: SODIUM CHLORIDE 0.9% FLUSH 10 ML FLUSH IV FLUSH SCH ×2 (11:17→20:57)
[2017-09-28] MEDS ORDERED: DIATRIZOATE MEGLUM/DIATRIZOATE SOD 9 ML CUP PO ONE (12:00)
--- NOTE | 2017-09-28 21:58 | RADRPT ---
EXAM DATE: 09/28/2017 9:43 PM EDT AGE/SEX: 72 years / Female INDICATIONS: Subcapsular mass on liver CLINICAL DATA: This is the patient's initial encounter. Patient reports that signs and symptoms have been present for 1 day and indicates a pain score of 0/10. MEDICAL/SURGICAL HISTORY: Cardiovascular disease. Chronic obstructive pulmonary disease. Diab etes. Hypertension, ulcer Hysterectomy. CABG. Stents in legs ORAL CONTRAST: Prescribed oral contrast ingested. RADIATION DOSE: 7.38 CTDI (mGy) COMPARISON: [facility] [place], US ABDOMEN - COMPLETE, 09/24/2017. . TECHNIQUE: Multiple contiguous axial images were obtained through the abdomen. Images were obtained using multiple row detector helical technique. Prescribed oral contrast ingested. Using dose reductio n techniques, radiation dose was kept as low as reasonably achievable to obtain optimal diagnostic qu ality images. FINDINGS: The subcapsular lesion measuring up to 1.2 cm on recent ultrasound is not identified on noncontrast C T. There is trace pleural fluid and basilar atelectasis in the lungs. No acute findings in the spleen, a drenals, kidneys or pancreas. Probable gallstones in the gallbladder. There is stent placement across an abdominal aortic aneurysm extending into the proximal iliac arteri es. No bowel obstruction. No free air or significant free fluid. There is previous fusion lower lumba r spine. CONCLUSION: 1. Subcapsular hyperechoic lesion seen on ultrasound is not clearly seen on CT. This may be better e valuated on MRI. Statistically lesion is most likely benign given circumscribed nature and increased echogenicity which can be seen with hemangioma or focal fat. Electronically signed by: Benedict Rodgers MD 09/28/2017 9:57 PM EDT
[2017-09-29] VITALS (8 sets, daily range): BP systolic 102–144; BP diastolic 57–73; PULSE 52–90; RESP 16–19; TEMP 97.5–98.2; O2SAT 99–100
[2017-09-29] MEDS: CHLORHEXIDINE GLUCONATE 2 % 1 PACK (2 CLOTHS) TOP SCH (03:22)
[2017-09-29] MEDS ORDERED: POVIDONE IODINE 5% (ANTISEPSIS KIT) 4 APPLICATIONS EACH NARE PRN (06:30)
[2017-09-29] MEDS ORDERED: LACTATED RINGER'S 1000 ML IV PRN (06:30)
[2017-09-29] MEDS ORDERED: CHLORHEXIDINE GLUCONATE 2 % 1 PACK (2 CLOTHS) TOPICAL PRN (06:30)
[2017-09-29] MEDS ORDERED: SODIUM CHLORID 0.9% 500 ML IV PRN (06:30)
[2017-09-29] MEDS: INSULIN ASPART SUPPLEMENTAL SCALE SQ SCH ×4 (08:00→21:00)
[2017-09-29] MEDS: METOPROLOL TARTRATE 50 MG TAB PO SCH ×2 (09:00→21:53)
[2017-09-29] MEDS: SODIUM CHLORIDE 0.9% FLUSH 10 ML FLUSH IV FLUSH SCH ×2 (09:26→21:55)
[2017-09-29] MEDS: ACETAMINOPHEN/HYDROcodone 325 MG/5 MG TAB PO PRN (09:27)
[2017-09-29] MEDS: POTASSIUM CHLORIDE 10 MEQ CONTROLLED RELEASE TAB PO SCH (09:27)
[2017-09-29] MEDS: ATORVASTATIN 40 MG TAB PO SCH (09:28)
[2017-09-29] MEDS: FAMOTIDINE 20 MG TAB PO SCH (09:28)
[2017-09-29] MEDS: DILTIAZEM-CD 300 MG CAP ER PO SCH (09:29)
[2017-09-29] MEDS: FUROSEMIDE 20 MG TAB PO SCH (09:29)
[2017-09-29] MEDS: ENALAPRIL MALEATE 5 MG TAB PO SCH ×2 (09:31→21:53)
[2017-09-29] MEDS: BUDESONIDE-FORMOTEROL 160/4.5 MCG INHALER INH SCH ×2 (09:31→21:54)
[2017-09-29 10:02] LABS: AUTOMATED NEUTROPHIL # 3.4 TH/MM3 (1.8-7.7); BASOPHIL % 0.8 % (0.0-2.0); EOSINOPHIL # 0.3 TH/MM3 (0-0.4); EOSINOPHIL % 5.5 % (0.0-4.0); HEMATOCRIT 33.3 % (35.0-46.0); HEMOGLOBIN 10.8 GM/DL (11.6-15.3); LYMPH % 21.6 % (9.0-44.0); LYMPHOCYTE # 1.2 TH/MM3 (1.0-4.8); MEAN CELL VOLUME 93.7 FL (80.0-100.0); MEAN CORPUSCULAR HEMOGLOBIN 30.4 PG (27.0-34.0); MEAN CORPUSCULAR HGB CONC 32.4 % (32.0-36.0); MEAN PLATELET VOLUME 8.5 FL (7.0-11.0); MONO % 10.8 % (0.0-8.0); MONOCYTE # 0.6 TH/MM3 (0-0.9); NEUT % 61.3 % (16.0-70.0); PLATELET COUNT 270 TH/MM3 (150-450); RED BLOOD COUNT 3.55 MIL/MM3 (4.00-5.30); RED CELL DISTRIBUTION WIDTH 14.8 % (11.6-17.2); WHITE BLOOD COUNT 5.6 TH/MM3 (4.0-11.0)
[2017-09-29 10:24] LABS: BICARBONATE 29.3 MEQ/L (21.0-32.0); CALCIUM 8.9 MG/DL (8.5-10.1); CREATININE 1.4 MG/DL (0.50-1.00)
--- NOTE | 2017-09-29 10:43 | HHI.FPPN ---
Subjective Remarks Mrs. Sosa was afebrile with stable vital signs overnight. Net input 320ml overnight. Patient reports 1 loose bowel movement last night and 1 this morning. Patient does not report any chest pain, shortness of breath, abdominal pain, or abnormal urination. Patient had questions regarding abdominal imaging findings and liver function which were discussed. (Sylvester Valentin MD R3) Objective Vitals Vital Signs Date Time Temp Pulse Resp B/P (MAP) Pulse Ox O2 Delivery O2 Flow Rate FiO2 09/29/17 08:00 97.6 60 19 128/63 (84) 100 09/29/17 04:00 72 09/29/17 04:00 97.8 57 17 117/57 (77) 99 09/29/17 00:00 71 09/28/17 23:53 97.3 66 17 145/69 (94) 98 09/28/17 20:32 97 Nasal Cannula 2.00 09/28/17 20:00 98.0 63 18 119/60 (79) 98 09/28/17 20:00 80 09/28/17 16:00 97.9 69 18 139/69 (92) 95 I/O 09/28/17 09/28/17 09/28/17 09/29/17 09/29/17 09/29/17 07:00 15:00 23:00 07:00 15:00 23:00 Intake Total 280 ml 720 ml Output Total 400 ml Balance 280 ml 720 ml -400 ml Intake Oral 280 ml 720 ml Output Urine Total 400 ml # Voids 2 2 # Bowel Movements 1 0 (Sylvester Valentin MD R3) Result Diagram: 09/29/17 0930 09/28/17 0458 Imaging Last Impressions Abdomen CT 09/28/17 0000 Signed Impressions: CONCLUSION: 1. Subcapsular hyperechoic lesion seen on ultrasound is not clearly seen on CT . This may be better evaluated on MRI. Statistically lesion is most likely sarita gn given circumscribed nature and increased echogenicity which can be seen with hemangioma or focal fat. Chest X-Ray 09/27/17 0700 Signed Impressions: CONCLUSION: Mild atelectasis right medial lung base. Interim extubation and nasogastric tub e removal. Abdomen Ultrasound 09/24/17 0000 Signed Impressions: CONCLUSION: 1. 1.8 cm hypoechoic subcapsular mass in the right lobe of the liver. This may represent focal fatty infiltration. However, differential considerations inclu de hemangioma and malignancy. Further characterization may be performed with MR I exam on an outpatient basis as clinically warranted. 2. Slightly prominent common bile duct and pancreatic duct without focal abnor mality. This is nonspecific although a partial ampullary obstruction cannot be entirely excluded. 3. Gallbladder polyps versus adherent stones. No sonographic evidence for chol ecystitis. 4. Trace ascites and small bilateral pleural effusions. Objective Remarks GENERAL: NAD SKIN: No visible rashes. Sacral ulcer not visualized today EYES: EOM grossly I. ENT: MMM CARDIOVASCULAR: Regular rate and rhythm; no murmurs to auscultation. No significant LE edema. RESPIRATORY: Normal rate and effort. On room air. CTAB; decreased breath sounds without wheezing or focal congestion GASTROINTESTINAL: Abdomen soft, non-distended, non-tender. MUSCULOSKELETAL: Extremities without edema. NEUROLOGICAL: Awake and alert. Cranial nerves grossly intact. Grossly normal peripheral motor and sensory function (Sylvester Valentin MD R3) A/P Assessment and Plan 72 yo F with PMH of HTN, CHF, COPD, DM, AFib, CAD presenting with: (Sylvester Valentin MD R3) Attending Attestation Medical rounds with Dr Valentin this am Patient interviewed and examination performed Agree with contents of above note See Orders (En Sun MD) Problem List: (1) CHF (congestive heart failure) ICD Codes: I50.9 - Heart failure, unspecified Status: Acute Plan: 09/29: Exam without suggestion of pulmonary vascular congestion or LE edema. Net input 320ml overnight Impression: Symptomatically improved Initially presented with respiratory failure, pulmonary edema on CXR Echo 08/11/17 with EF 45-50%, low-normal to mild systolic dysfunction BNP in 600s on admission. Per Cardiology; possibly precipitated by uncontrolled HR -Continue Lasix 20 mg PO daily -Continue KCl 10 mEq daily - Cardiology following, appreciate recs - Continue home BB - Continue enalapril 5 mg BID (2) Respiratory failure ICD Codes: J96.90 - Respiratory failure, unspecified, unspecified whether with hypoxia or hypercapnia Status: Resolved Plan: 09/29: Breathing well on 2L O2 via NC; normal rate Impression: Patient intubated 09/24 after failing CPAP in ED and having desaturations <70%. ABG on admission with pH 7.25. Patient improved and was subsequently extubated. Likely due to RVR in patient with significant CAD versus pulmonary edema / CHF based on initial CXR and BNP in the 600s Now resolved, tolerated extubation well; still needing oxygen - Manage comorbid conditions as below (3) Atrial fibrillation with RVR ICD Codes: I48.91 - Unspecified atrial fibrillation Status: Resolved Plan: Impression: Presented with AFib in RVR, HR now at goal. ACS rule-out negative - Cardiology consulted, appreciate recs - Diltiazem 90 mg PO Q6H -Metoprolol 50mg BID - Anticoagulation with Eliquis - Continue telemetry (4) CAD (coronary artery disease) ICD Codes: I25.10 - Atherosclerotic heart disease of [place] coronary artery without angina pectoris Status: Chronic Plan: Impression: CAD; no recent angina symptoms. 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 No leukocytosis or fevers Impression: C difficile toxin PCR positive, however patient had no diarrhea or leukocytosis or fever Suspect likely colonization - Hold vancomycin PO - Trend vitals, CBC; restart vancomycin if symptoms or signs of colitis develop (6) Abnormal findings on diagnostic imaging of abdomen ICD Codes: R93.5 - Abnormal findings on diagnostic imaging of other abdominal regions, including retroperitoneum Status: Acute Plan: Impression: Mild LFT elevations and concern for maroon colored stools on admission US Abdomen 09/24- 1.8 cm hypoechoic subcapsular mass in the right lobe of the liver. This may represent focal fatty infiltration. However, differential considerations include hemangioma and malignancy. Further characterization may be performed with MRI exam on an outpatient basis as clinically warranted. Slightly prominent common bile duct and pancreatic duct without focal abnormality. This is nonspecific although a partial ampullary obstruction cannot be entirely excluded. Gallbladder polyps versus adherent stones. No sonographic evidence for cholecystitis. Labs: LFT's: 09/24 (AST 50, ALT 63, ALKP 136) -> 09/25 (AST 50, ALT 63, ALKP 136) - likely elevated transiently from CHF CA-125 slightly elevated CEA, AFP, CA 19-9 normal -GI consulted -Plan for EGD 09/29 -Monitor H/H -CT abdomen w/o contrast (7) COPD (chronic obstructive pulmonary disease) ICD Codes: J44.9 - Chronic obstructive pulmonary disease, unspecified Status: Chronic Plan: Possibly contributed to respiratory failure, though clinical picture more likely CHF Sputum culture with light growth normal respiratory aurora - Continue DuoNeb Q6H scheduled, Q6H PRN - Continue home Symbicort (8) Stage 1 skin ulcer of sacral region ICD Codes: L98.429 - Non-pressure chronic ulcer of back with unspecified severity Status: Acute Plan: Exam shows stage 1 ulcer with no skin breakdown - Ulcer prevention protocol - Consider routine wound care consult if does not improve (9) Diabetes ICD Codes: E11.9 - Type 2 diabetes mellitus without complications Plan: On metformin at home, in good control - Hold metformin - Accu-cheks, low novolog scale - hypoglycemia protocol - glucose goal 140-180 (10) Hypertension ICD Codes: I10 - Essential (primary) hypertension Status: Chronic Plan: Impression: Recently normotenstive - Continue beta rob, ACEi, diltiazem - Vasotec PRN BP > 200/100 (11) Chronic kidney disease (CKD) ICD Codes: N18.9 - Chronic kidney disease, unspecified Status: Chronic Plan: Impression: Mild CKD chronically; Baseline creatinine 1.6 on review of outpatient record - Renally dose meds - Trend BMP (12) FEN/GI/PPx Plan: Fluids: Caution given CHF. PO only for now. Elecs: Monitor, replete PRN Nutrition: Diet heart healthy with 2 gm sodium restriction DVT: On Eliquis GI: Famotidine 20 mg daily Case seen and discussed with Dr. Sun (Sylvester Valentin MD R3) Problem Qualifiers (1) CHF (congestive heart failure): Qualified Codes: I50.23 - Acute on chronic systolic (congestive) heart failure (2) Respiratory failure: Qualified Codes: J96.01 - Acute respiratory failure with hypoxia (3) CAD (coronary artery disease): Qualified Codes: I25.10 - Atherosclerotic heart disease of [place] coronary artery without angina pectoris (4) COPD (chronic obstructive pulmonary disease): Qualified Codes: J44.9 - Chronic obstructive pulmonary disease, unspecified (5) Diabetes: Qualified Codes: E11.22 - Type 2 diabetes mellitus with diabetic chronic kidney disease; N18.3 - Chronic kidney disease, stage 3 (moderate) (6) Hypertension: Qualified Codes: I10 - Essential (primary) hypertension (7) Chronic kidney disease (CKD): Qualified Codes: N18.3 - Chronic kidney disease, stage 3 (moderate) Sylvester Valentin MD R3 September 29, 2017 10:43 En Sun MD September 29, 2017 18:29
[2017-09-29] MEDS ORDERED: LIDOCAINE HCL 1% PF 5 ML SYRINGE OTHER ONE (12:00)
[2017-09-29] MEDS: ACETAMINOPHEN 325 MG TAB PO PRN ×2 (12:22→18:14)
--- NOTE | 2017-09-29 13:31 | GIPROC ---
[facility] [address] [facility]. [facility], [id number] EGD PROCEDURE REPORT EXAM DATE: 09/29/2017 PATIENT NAME: Zuleima Sosa MR #: [id number] BIRTHDATE: 1945 ATTENDING: Darion San MD ORDER #: [id number] TECHNICAL ASSOC: Flaquito Baker and Jessica Gunderson STATUS: inpatient INDICATIONS: The patient is a 72 yr old female here for an EGD due to iron deficiency anemia PROCEDURE PERFORMED: EGD, diagnostic MEDICATIONS: None and Per Anesthesia. TOPICAL ANESTHETIC: CONSENT: The patient understands the risks and benefits of the procedure and understands that these risks include, but are not limited to: sedation, allergic reaction, infection, perforation and/or bleeding. Alternative means of evaluation and treatment include, among others: physical exam, x-rays, and/or surgical intervention. The patient elects to proceed with this endoscopic procedure. medical equipment was checked for proper function. Hand hygiene and appropriate measures for infection prevention was taken. After the risks, benefits and alternatives of the procedure were thoroughly explained, Informed consent was verified, confirmed and timeout was successfully executed by the treatment team. The patient was anesthetized with topical anesthesia and the Pentax [id number] endoscope was introduced through the mouth and advanced to the second portion of the duodenum. Retroflexed views revealed no abnormalities The gastroscope was then slowly withdrawn and removed. ESOPHAGUS: There was LA Class A esophagitis noted. STOMACH: There was erythematous moderate gastritis in the gastric antrum. DUODENUM: A polypoid shaped sessile polyp ranging between 3-5mm in size was found in the 1st part of the duodenum. ADVERSE EVENTS: There were no complications. IMPRESSIONS: 1. There was LA Class A esophagitis noted 2. There was erythematous gastritis in the gastric antrum 3. Sessile polyp ranging between 3-5mm in size was found in the 1st part of the duodenum 4. Retroflexed views revealed no abnormalities RECOMMENDATIONS: 1. Anti-reflux regimen 2. Continue PPI 3. Avoid NSAIDS PATIENT CONDITION: stable DISPOSITION: Inpatient REPEAT EXAM: Return 1 year EGD Darion aSn MD eSigned: Darion San MD 09/29/2017 1:30 PM cc: PATIENT NAME: Ian Zuleima Yamileth MR#: [id number]
[2017-09-30] VITALS (14 sets, daily range): BP systolic 108–118; BP diastolic 60–67; PULSE 54–76; RESP 16–18; TEMP 97.3–97.8; O2SAT 97–100
[2017-09-30] MEDS: CHLORHEXIDINE GLUCONATE 2 % 1 PACK (2 CLOTHS) TOP SCH (04:00)
[2017-09-30 05:34] LABS: AUTOMATED NEUTROPHIL # 3.4 TH/MM3 (1.8-7.7); BASOPHIL # 0.1 TH/MM3 (0-0.2); BASOPHIL % 0.9 % (0.0-2.0); EOSINOPHIL # 0.3 TH/MM3 (0-0.4); EOSINOPHIL % 4.7 % (0.0-4.0); HEMATOCRIT 33.9 % (35.0-46.0); HEMOGLOBIN 11.1 GM/DL (11.6-15.3); LYMPH % 23.3 % (9.0-44.0); LYMPHOCYTE # 1.3 TH/MM3 (1.0-4.8); MEAN CELL VOLUME 93.2 FL (80.0-100.0); MEAN CORPUSCULAR HEMOGLOBIN 30.6 PG (27.0-34.0); MEAN CORPUSCULAR HGB CONC 32.9 % (32.0-36.0); MEAN PLATELET VOLUME 8.8 FL (7.0-11.0); MONOCYTE # 0.6 TH/MM3 (0-0.9); NEUT % 61.1 % (16.0-70.0); PLATELET COUNT 251 TH/MM3 (150-450); RED BLOOD COUNT 3.64 MIL/MM3 (4.00-5.30); WHITE BLOOD COUNT 5.6 TH/MM3 (4.0-11.0)
[2017-09-30 05:50] LABS: BICARBONATE 27.9 MEQ/L (21.0-32.0); CREATININE 1.43 MG/DL (0.50-1.00)
[2017-09-30] MEDS: INSULIN ASPART SUPPLEMENTAL SCALE SQ SCH ×4 (08:00→21:00)
[2017-09-30] MEDS: FAMOTIDINE 20 MG TAB PO SCH (08:49)
[2017-09-30] MEDS: ENALAPRIL MALEATE 5 MG TAB PO SCH ×2 (08:49→21:58)
[2017-09-30] MEDS: METOPROLOL TARTRATE 50 MG TAB PO SCH ×2 (08:49→21:58)
[2017-09-30] MEDS: DILTIAZEM-CD 300 MG CAP ER PO SCH (08:49)
[2017-09-30] MEDS: POTASSIUM CHLORIDE 10 MEQ CONTROLLED RELEASE TAB PO SCH (08:49)
[2017-09-30] MEDS: ATORVASTATIN 40 MG TAB PO SCH (08:49)
[2017-09-30] MEDS: FUROSEMIDE 20 MG TAB PO SCH (08:49)
[2017-09-30] MEDS: SODIUM CHLORIDE 0.9% FLUSH 10 ML FLUSH IV FLUSH SCH ×2 (08:50→21:59)
[2017-09-30] MEDS: BUDESONIDE-FORMOTEROL 160/4.5 MCG INHALER INH SCH ×2 (08:52→21:59)
[2017-09-30] MEDS: APIXABAN 5 MG TABLET PO SCH ×2 (09:12→21:58)
[2017-09-30] MEDS: TICAGRELOR 90 MG TAB PO SCH ×2 (09:53→22:02)
--- NOTE | 2017-09-30 10:20 | HHI.GIFU ---
Subjective Remarks Pt up in bathroom, brushing her teeth Denies nausea, vomiting, abdominal pain No BM yet today, one documented from yesterday Denies blood in stool (Audrey Alexandra) Objective Vitals I&O Vital Signs Date Time Temp Pulse Resp B/P (MAP) Pulse Ox O2 Delivery O2 Flow Rate FiO2 09/30/17 08:09 97.8 76 18 111/62 (78) 97 09/30/17 08:00 74 09/30/17 04:04 57 09/30/17 04:00 97.8 54 16 116/67 (83) 99 09/30/17 00:27 66 09/29/17 23:05 98.2 52 16 104/66 (79) 100 09/29/17 20:37 97.6 57 18 102/62 (75) 99 09/29/17 19:47 71 09/29/17 16:00 97.7 63 19 115/61 (79) 100 09/29/17 16:00 85 09/29/17 12:00 97.5 90 19 144/73 (96) 100 09/29/17 12:00 67 I/O 09/29/17 09/29/17 09/29/17 09/30/17 09/30/17 09/30/17 07:00 15:00 23:00 07:00 15:00 23:00 Intake Total 100 ml 720 ml 0 ml Output Total 400 ml 450 ml 2 ml Balance -400 ml 100 ml 270 ml -2 ml Intake Oral 720 ml 0 ml Other 100 ml Output Urine Total 400 ml 450 ml 2 ml # Voids 2 # Bowel Movements 1 0 Laboratory Laboratory Tests Test 09/30/17 04:14 White Blood Count 5.6 Red Blood Count 3.64 Hemoglobin 11.1 Hematocrit 33.9 Mean Corpuscular Volume 93.2 Mean Corpuscular Hemoglobin 30.6 Mean Corpuscular Hemoglobin Concent 32.9 Red Cell Distribution Width 15.0 Platelet Count 251 Mean Platelet Volume 8.8 Neutrophils (%) (Auto) 61.1 Lymphocytes (%) (Auto) 23.3 Monocytes (%) (Auto) 10.0 Eosinophils (%) (Auto) 4.7 Basophils (%) (Auto) 0.9 Neutrophils # (Auto) 3.4 Lymphocytes # (Auto) 1.3 Monocytes # (Auto) 0.6 Eosinophils # (Auto) 0.3 Basophils # (Auto) 0.1 CBC Comment DIFF FINAL Differential Comment Blood Urea Nitrogen 17 Creatinine 1.43 Random Glucose 102 Calcium Level 9.0 Sodium Level 142 Potassium Level 3.9 Chloride Level 103 Carbon Dioxide Level 27.9 Anion Gap 11 Estimat Glomerular Filtration Rate 36 Date/Time Source Procedure Growth Status 09/24/17 05:47 Sputum Endotracheal Gram Stain - Final Complete 09/24/17 05:47 Sputum Endotracheal Sputum Culture - Final LIGHT GROWTH NORMAL RESPIRATORY KEMAL Complete 09/24/17 03:07 Urine Catheterized Urine Urine Culture - Final NO GROWTH IN 48 HOURS. Complete Imaging Last Impressions Abdomen CT 09/28/17 0000 Signed Impressions: CONCLUSION: 1. Subcapsular hyperechoic lesion seen on ultrasound is not clearly seen on CT . This may be better evaluated on MRI. Statistically lesion is most likely sarita gn given circumscribed nature and increased echogenicity which can be seen with hemangioma or focal fat. Chest X-Ray 09/27/17 0700 Signed Impressions: CONCLUSION: Mild atelectasis right medial lung base. Interim extubation and nasogastric tub e removal. Abdomen Ultrasound 09/24/17 0000 Signed Impressions: CONCLUSION: 1. 1.8 cm hypoechoic subcapsular mass in the right lobe of the liver. This may represent focal fatty infiltration. However, differential considerations inclu de hemangioma and malignancy. Further characterization may be performed with MR I exam on an outpatient basis as clinically warranted. 2. Slightly prominent common bile duct and pancreatic duct without focal abnor mality. This is nonspecific although a partial ampullary obstruction cannot be entirely excluded. 3. Gallbladder polyps versus adherent stones. No sonographic evidence for chol ecystitis. 4. Trace ascites and small bilateral pleural effusions. Physical Exam HEENT: Normocephalic; atraumatic CHEST: Even/unlabored CARDIAC: Irregularly irregular, rate controlled ABDOMEN: Soft, obese, nontender, bowel sounds active EXTREMITIES: Lower extremity edema. 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 difficile colitis ICD Codes: A04.72 - Enterocolitis due to Clostridium difficile, not specified as recurrent Plan Assessment: - Maroon colored stools, consult to evaluate whether Eliquis could be continued- this has already been restarted per cardiology- pt also on Brilinta for CAD - C Diff toxin positive, noted to be likely a carrier given lack of symptoms PO Vanco currently on hold, recommended to restart if symptoms develop. - Elevated LFTs On 09/24 AST-50 ALT-63 Alk phos-136 T bili-0.5 AFP-2.1 CEA-1.9 CA 19-9 19 Hepatitis panel negative US abdomen (09/24) --> 1.8 cm hypoechoic subcapsular mass in the right lobe of the liver. This may represent focal fatty infiltration. However, differential considerations include hemangioma and malignancy. Further characterization may be performed with MRI exam on an outpatient basis as clinically warranted. Slightly prominent common bile duct and pancreatic duct without focal abnormality. This is nonspecific although a partial ampullary obstruction cannot be entirely excluded. Gallbladder polyps versus adherent stones. No sonographic evidence for cholecystitis. Trace ascites and small bilateral pleural effusions. CT abdomen WO IV contrast (09/28) --> Subcapsular hyperechoic lesion seen on ultrasound is not clearly seen on CT. Statistically lesion is most likely benign given circumscribed nature and increased echogenicity which can be seen with hemangioma or focal fat. Pt unable to have MRI due to rods in her back - Anemia, normocytic - A-fib RVR on admission, now rate controlled- on Eliquis - CAD- On Brilinta- serial troponin negative- cardiology following as needed (09/30) Pt with no GI complaints at this time. H/H stable over night. 1 BM documented from yesterday, no obvious blood. EGD --> Class A esophagitis, erythematous gastritis in the gastric antrum, sessile polyp ranging between 3-5 mm in size in the 1st part of the duodenum. Plan EGD biopsy pending Restarted on Brilinta and Eliquis Monitor H/H H/H has remained stable, no further reports of GIB Colonoscopy to be done outpatient Regarding US/CT findings- pt unable to have MRI done- follow up outpatient GI will sign off, please reconsult as needed Have pt follow up with GI after DC Pt has been seen and examined by myself and Dr. San and this note is written on his behalf (Audrey Alexandra) Physician Comments Seen and examined with SEVERIANO, s/p egd. No complaints today. Biopsies -p. Continue treatment for c. diff. GI will sign off. FU after dc. Thank you (Darion San MD) Audrey Alexandra September 30, 2017 10:20 Darion San MD September 30, 2017 16:17
--- NOTE | 2017-09-30 11:18 | HHI.FPPN ---
Subjective Remarks Mrs. Sosa was afebrile with stable vital signs overnight. Per EMR, 1 BM overnight Patient does not report complaints at this time; she does not report chest pain , shortness of breath, abdominal pain, abnormal bowel movements, or abnormal urination. Patient discussed her home environment; she has no one able to live with her at home but has support of family members which live <5 miles away. Patient refuses rehabilitation. Patient also provided supplemental history that she uses 2 L O2 NC at night when sleeping (Sylvester Valentin MD R3) Objective Vitals Vital Signs Date Time Temp Pulse Resp B/P (MAP) Pulse Ox O2 Delivery O2 Flow Rate FiO2 09/30/17 08:09 97.8 76 18 111/62 (78) 97 09/30/17 08:00 74 09/30/17 04:04 57 09/30/17 04:00 97.8 54 16 116/67 (83) 99 09/30/17 00:27 66 09/29/17 23:05 98.2 52 16 104/66 (79) 100 09/29/17 20:37 97.6 57 18 102/62 (75) 99 09/29/17 19:47 71 09/29/17 16:00 97.7 63 19 115/61 (79) 100 09/29/17 16:00 85 09/29/17 12:00 97.5 90 19 144/73 (96) 100 09/29/17 12:00 67 I/O 09/29/17 09/29/17 09/29/17 09/30/17 09/30/17 09/30/17 07:00 15:00 23:00 07:00 15:00 23:00 Intake Total 100 ml 720 ml 0 ml Output Total 400 ml 450 ml 2 ml Balance -400 ml 100 ml 270 ml -2 ml Intake Oral 720 ml 0 ml Other 100 ml Output Urine Total 400 ml 450 ml 2 ml # Voids 2 # Bowel Movements 1 0 (Sylvester Valentin MD R3) Result Diagram: 09/30/174 09/30/17 0414 Imaging Last Impressions Abdomen CT 09/28/17 0000 Signed Impressions: CONCLUSION: 1. Subcapsular hyperechoic lesion seen on ultrasound is not clearly seen on CT . This may be better evaluated on MRI. Statistically lesion is most likely sarita gn given circumscribed nature and increased echogenicity which can be seen with hemangioma or focal fat. Chest X-Ray 09/27/17 0700 Signed Impressions: CONCLUSION: Mild atelectasis right medial lung base. Interim extubation and nasogastric tub e removal. Abdomen Ultrasound 09/24/17 0000 Signed Impressions: CONCLUSION: 1. 1.8 cm hypoechoic subcapsular mass in the right lobe of the liver. This may represent focal fatty infiltration. However, differential considerations inclu de hemangioma and malignancy. Further characterization may be performed with MR I exam on an outpatient basis as clinically warranted. 2. Slightly prominent common bile duct and pancreatic duct without focal abnor mality. This is nonspecific although a partial ampullary obstruction cannot be entirely excluded. 3. Gallbladder polyps versus adherent stones. No sonographic evidence for chol ecystitis. 4. Trace ascites and small bilateral pleural effusions. Objective Remarks GENERAL: NAD SKIN: No visible rashes. Sacral ulcer not visualized today EYES: EOM grossly I. ENT: MMM CARDIOVASCULAR: Regular rate and rhythm; no murmurs to auscultation. No significant LE edema. RESPIRATORY: Normal rate and effort. On room air. CTAB; decreased breath sounds GASTROINTESTINAL: Abdomen soft, non-distended, non-tender. MUSCULOSKELETAL: Extremities without edema. NEUROLOGICAL: Awake and alert. Cranial nerves grossly intact. Grossly normal peripheral motor and sensory function (Sylvester Valentin MD R3) A/P Assessment and Plan 72 yo F with PMH of HTN, CHF, COPD, DM, AFib, CAD presenting with: (Sylvester Valentin MD R3) Attending Attestation patient seen and examined with Dr Valentin EMR reviewed Case discussed in detail Agree with contents of note and assessment See Orders (En Sun MD) Problem List: (1) CHF (congestive heart failure) ICD Codes: I50.9 - Heart failure, unspecified Status: Acute Plan: 09/30: No concern for pulmonary vascular congestion or LE edema at this time. Net input 368ml overnight Impression: Symptomatically improved Initially presented with respiratory failure, pulmonary edema on CXR Echo 08/11/17 with EF 45-50%, low-normal to mild systolic dysfunction BNP in 600s on admission. Per Cardiology; possibly precipitated by uncontrolled HR -Continue Lasix 20 mg PO daily -Continue KCl 10 mEq daily - Cardiology following, appreciate recs - Continue home BB - Continue enalapril 5 mg BID (2) Respiratory failure ICD Codes: J96.90 - Respiratory failure, unspecified, unspecified whether with hypoxia or hypercapnia Status: Resolved Plan: 09/29: No shortness of breath. Patient saturating >95% on room air per nursing staff Impression: Patient intubated 09/24 after failing CPAP in ED and having desaturations <70%. ABG on admission with pH 7.25. Patient improved and was subsequently extubated. Likely due to RVR in patient with significant CAD versus pulmonary edema / CHF based on initial CXR and BNP in the 600s Now resolved, tolerated extubation well; still needing oxygen - Manage comorbid conditions as below (3) Atrial fibrillation with RVR ICD Codes: I48.91 - Unspecified atrial fibrillation Status: Resolved Plan: Impression: Presented with AFib in RVR, HR now at goal. ACS rule-out negative - Cardiology consulted, appreciate recs - Diltiazem 90 mg PO Q6H -Metoprolol 50mg BID - Anticoagulation with Eliquis - Continue telemetry (4) CAD (coronary artery disease) ICD Codes: I25.10 - Atherosclerotic heart disease of [place] coronary artery without angina pectoris Status: Chronic Plan: Impression: CAD; no recent angina symptoms. 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 No leukocytosis or fevers Impression: C difficile toxin PCR positive, however patient had no diarrhea or leukocytosis or fever Suspect likely colonization - Hold vancomycin PO - Trend vitals, CBC; restart vancomycin if symptoms or signs of colitis develop (6) Abnormal findings on diagnostic imaging of abdomen ICD Codes: R93.5 - Abnormal findings on diagnostic imaging of other abdominal regions, including retroperitoneum Status: Acute Plan: Impression: Mild LFT elevations and concern for maroon colored stools on admission US Abdomen 09/24- 1.8 cm hypoechoic subcapsular mass in the right lobe of the liver. This may represent focal fatty infiltration. However, differential considerations include hemangioma and malignancy. Further characterization may be performed with MRI exam on an outpatient basis as clinically warranted. Slightly prominent common bile duct and pancreatic duct without focal abnormality. This is nonspecific although a partial ampullary obstruction cannot be entirely excluded. Gallbladder polyps versus adherent stones. No sonographic evidence for cholecystitis. Labs: LFT's: 09/24 (AST 50, ALT 63, ALKP 136) -> 09/25 (AST 50, ALT 63, ALKP 136) - likely elevated transiently from CHF CA-125 slightly elevated CEA, AFP, CA 19-9 normal -GI consulted - EGD performed patient found to have duodenal polyp, esophagitis, and erythematous gastric mucosa; biopsy pending -CT abdomen w/o contrast 09/28- subcapsular hyperechoic lesion on US not clearly seen. Likely benign -Continue PPI -Monitor H/H -F/U EGD in 1 year; will sign off (7) COPD (chronic obstructive pulmonary disease) ICD Codes: J44.9 - Chronic obstructive pulmonary disease, unspecified Status: Chronic Plan: Possibly contributed to respiratory failure, though clinical picture more likely CHF Sputum culture with light growth normal respiratory aurora - Continue DuoNeb Q6H scheduled, Q6H PRN - Continue home Symbicort (8) Stage 1 skin ulcer of sacral region ICD Codes: L98.429 - Non-pressure chronic ulcer of back with unspecified severity Status: Acute Plan: Exam shows stage 1 ulcer with no skin breakdown - Ulcer prevention protocol - Consider routine wound care consult if does not improve (9) Diabetes ICD Codes: E11.9 - Type 2 diabetes mellitus without complications Plan: On metformin at home, in good control - Hold metformin - Accu-cheks, low novolog scale - hypoglycemia protocol - glucose goal 140-180 (10) Hypertension ICD Codes: I10 - Essential (primary) hypertension Status: Chronic Plan: Impression: Recently normotenstive - Continue beta rob, ACEi, diltiazem - Vasotec PRN BP > 200/100 (11) Chronic kidney disease (CKD) ICD Codes: N18.9 - Chronic kidney disease, unspecified Status: Chronic Plan: Impression: Mild CKD chronically; Baseline creatinine 1.6 on review of outpatient record Cr: 1.19 09/27 -> 1.43 today - Renally dose meds - Trend BMP (12) FEN/GI/PPx Plan: Fluids: Caution given CHF. PO only for now. Elecs: Monitor, replete PRN Nutrition: Diet heart healthy with 2 gm sodium restriction DVT: On Eliquis GI: Famotidine 20 mg daily Case seen and discussed with Dr. Sun (Sylvester Valentin MD R3) Problem Qualifiers (1) CHF (congestive heart failure): Qualified Codes: I50.23 - Acute on chronic systolic (congestive) heart failure (2) Respiratory failure: Qualified Codes: J96.01 - Acute respiratory failure with hypoxia (3) CAD (coronary artery disease): Qualified Codes: I25.10 - Atherosclerotic heart disease of [place] coronary artery without angina pectoris (4) COPD (chronic obstructive pulmonary disease): Qualified Codes: J44.9 - Chronic obstructive pulmonary disease, unspecified (5) Diabetes: Qualified Codes: E11.22 - Type 2 diabetes mellitus with diabetic chronic kidney disease; N18.3 - Chronic kidney disease, stage 3 (moderate) (6) Hypertension: Qualified Codes: I10 - Essential (primary) hypertension (7) Chronic kidney disease (CKD): Qualified Codes: N18.3 - Chronic kidney disease, stage 3 (moderate) Sylvester Valentin MD R3 September 30, 2017 11:18 En Sun MD September 30, 2017 14:55
[2017-09-30] MEDS: NYSTATIN SUSP 500,000 U/5 ML CUP SWISH-SPIT SCH ×3 (13:25→21:58)
[2017-10-01] VITALS (11 sets, daily range): BP systolic 107–133; BP diastolic 56–66; PULSE 64–75; RESP 16–18; TEMP 97.3–98.2; O2SAT 98–100
[2017-10-01] MEDS: CHLORHEXIDINE GLUCONATE 2 % 1 PACK (2 CLOTHS) TOP SCH (04:00)
[2017-10-01 05:19] LABS: AUTOMATED NEUTROPHIL # 3.5 TH/MM3 (1.8-7.7); BASOPHIL % 0.8 % (0.0-2.0); EOSINOPHIL # 0.2 TH/MM3 (0-0.4); EOSINOPHIL % 4.4 % (0.0-4.0); HEMATOCRIT 33.9 % (35.0-46.0); HEMOGLOBIN 11.1 GM/DL (11.6-15.3); LYMPH % 22.1 % (9.0-44.0); LYMPHOCYTE # 1.2 TH/MM3 (1.0-4.8); MEAN CELL VOLUME 92.9 FL (80.0-100.0); MEAN CORPUSCULAR HEMOGLOBIN 30.5 PG (27.0-34.0); MEAN CORPUSCULAR HGB CONC 32.8 % (32.0-36.0); MEAN PLATELET VOLUME 8.7 FL (7.0-11.0); MONO % 10.9 % (0.0-8.0); MONOCYTE # 0.6 TH/MM3 (0-0.9); NEUT % 61.8 % (16.0-70.0); PLATELET COUNT 287 TH/MM3 (150-450); RED BLOOD COUNT 3.64 MIL/MM3 (4.00-5.30); RED CELL DISTRIBUTION WIDTH 14.8 % (11.6-17.2); WHITE BLOOD COUNT 5.6 TH/MM3 (4.0-11.0)
[2017-10-01 05:36] LABS: BICARBONATE 28.3 MEQ/L (21.0-32.0); CALCIUM 9.2 MG/DL (8.5-10.1); CREATININE 1.5 MG/DL (0.50-1.00)
[2017-10-01] MEDS: INSULIN ASPART SUPPLEMENTAL SCALE SQ SCH ×4 (08:00→21:00)
--- NOTE | 2017-10-01 10:06 | HHI.FPPN ---
Subjective Remarks Mrs. Sosa was afebrile with stable vital signs overnight (O2 saturations 99% on 2 L O2 via NC). Weight loss of 1.4kg overnight per EMR. Urine output? but 11 voids. Patient reports some shortness of breath today that is improved when she wears oxygen; she has home O2 2L. Patient does not report cough, chest pain, abdominal pain, or abnormal urination. Patient having solid stools; she denies any diarrhea. No leg swelling. (Sylvester Valentin MD R3) Objective Vitals Vital Signs Date Time Temp Pulse Resp B/P (MAP) Pulse Ox O2 Delivery O2 Flow Rate FiO2 10/01/17 08:09 98.2 74 17 113/66 (82) 99 10/01/17 04:35 97.4 66 18 125/66 (85) 98 10/01/17 03:58 67 10/01/17 00:00 98.0 71 18 108/59 (75) 98 10/01/17 00:00 Nasal Cannula 2.00 09/30/17 23:41 70 09/30/17 22:09 99 Nasal Cannula 2.00 09/30/17 20:06 Nasal Cannula 2.00 09/30/17 20:06 97.6 66 18 118/61 (80) 100 09/30/17 19:57 72 09/30/17 16:09 97.4 62 18 112/64 (80) 99 09/30/17 16:00 75 09/30/17 13:23 97 09/30/17 12:09 97.3 56 18 108/60 (76) 99 09/30/17 12:00 65 I/O 09/30/17 09/30/17 09/30/17 10/01/17 10/01/17 10/01/17 07:00 15:00 23:00 07:00 15:00 23:00 Intake Total 0 ml 420 ml 240 ml Output Total 2 ml Balance -2 ml 420 ml 240 ml Intake Oral 0 ml 420 ml 240 ml Output Urine Total 2 ml # Voids 7 4 # Bowel Movements 0 1 1 (Sylvester Valentin MD R3) Result Diagram: 10/01/17 0350 10/01/17 0350 Imaging Last Impressions Abdomen CT 09/28/17 0000 Signed Impressions: CONCLUSION: 1. Subcapsular hyperechoic lesion seen on ultrasound is not clearly seen on CT . This may be better evaluated on MRI. Statistically lesion is most likely sarita gn given circumscribed nature and increased echogenicity which can be seen with hemangioma or focal fat. Chest X-Ray 09/27/17 0700 Signed Impressions: CONCLUSION: Mild atelectasis right medial lung base. Interim extubation and nasogastric tub e removal. Abdomen Ultrasound 09/24/17 0000 Signed Impressions: CONCLUSION: 1. 1.8 cm hypoechoic subcapsular mass in the right lobe of the liver. This may represent focal fatty infiltration. However, differential considerations inclu de hemangioma and malignancy. Further characterization may be performed with MR I exam on an outpatient basis as clinically warranted. 2. Slightly prominent common bile duct and pancreatic duct without focal abnor mality. This is nonspecific although a partial ampullary obstruction cannot be entirely excluded. 3. Gallbladder polyps versus adherent stones. No sonographic evidence for chol ecystitis. 4. Trace ascites and small bilateral pleural effusions. Objective Remarks GENERAL: NAD SKIN: No visible rashes. Sacral ulcer not visualized today EYES: EOM grossly I. ENT: MMM CARDIOVASCULAR: Regular rate and rhythm; no murmurs to auscultation. No significant LE edema. RESPIRATORY: Normal rate and effort. On room air. CTAB; decreased breath sounds GASTROINTESTINAL: Abdomen soft, non-distended, non-tender. MUSCULOSKELETAL: Extremities without edema. NEUROLOGICAL: Awake and alert. Cranial nerves grossly intact. Grossly normal peripheral motor and sensory function (Sylvester Valentin MD R3) A/P Assessment and Plan 72 yo F with PMH of HTN, CHF, COPD, DM, AFib, CAD presenting with: (Sylvester Valentin MD R3) Attending Attestation Patient examined independently and case discussed with resident physician I have read the above note and agree with the assessment/plan as discussed with me I was involved in all medical decision making for this patient Ever Roman MD (Ever Roman MD) Problem List: (1) CHF (congestive heart failure) ICD Codes: I50.9 - Heart failure, unspecified Status: Acute Plan: 10/01: No concern for pulmonary vascular congestion or LE edema at this time. Net output? 1.4 kg loss overnight w/ 11 voids. Impression: Symptomatically improved Initially presented with respiratory failure, pulmonary edema on CXR Echo 08/11/17 with EF 45-50%, low-normal to mild systolic dysfunction BNP in 600s on admission. Per Cardiology; possibly precipitated by uncontrolled HR -Continue Lasix 20 mg PO daily -Continue KCl 10 mEq daily - Cardiology following, appreciate recs - Continue home BB - Continue enalapril 5 mg BID (2) Respiratory failure ICD Codes: J96.90 - Respiratory failure, unspecified, unspecified whether with hypoxia or hypercapnia Status: Resolved Plan: 10/01: Mild shortness of breath. Patient saturating >95% on 2 L O2 via NC ; per nursing staff patient does well on room air Impression: Patient intubated 09/24 after failing CPAP in ED and having desaturations <70%. ABG on admission with pH 7.25. Patient improved and was subsequently extubated. Likely due to RVR in patient with significant CAD versus pulmonary edema / CHF based on initial CXR and BNP in the 600s Now resolved, tolerated extubation well; still needing oxygen - Manage comorbid conditions as below (3) Atrial fibrillation with RVR ICD Codes: I48.91 - Unspecified atrial fibrillation Status: Resolved Plan: Impression: Presented with AFib in RVR, HR now at goal. ACS rule-out negative - Cardiology consulted, appreciate recs - Diltiazem 90 mg PO Q6H -Metoprolol 50mg BID - Anticoagulation with Eliquis - Continue telemetry (4) CAD (coronary artery disease) ICD Codes: I25.10 - Atherosclerotic heart disease of [place] coronary artery without angina pectoris Status: Chronic Plan: Impression: CAD; no recent angina symptoms. 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 No leukocytosis or fevers Impression: C difficile toxin PCR positive, however patient had no diarrhea or leukocytosis or fever Suspect likely colonization - Hold vancomycin PO - Trend vitals, CBC; restart vancomycin if symptoms or signs of colitis develop (6) Abnormal findings on diagnostic imaging of abdomen ICD Codes: R93.5 - Abnormal findings on diagnostic imaging of other abdominal regions, including retroperitoneum Status: Acute Plan: Impression: Mild LFT elevations and concern for maroon colored stools on admission US Abdomen 09/24- 1.8 cm hypoechoic subcapsular mass in the right lobe of the liver. This may represent focal fatty infiltration. However, differential considerations include hemangioma and malignancy. Further characterization may be performed with MRI exam on an outpatient basis as clinically warranted. Slightly prominent common bile duct and pancreatic duct without focal abnormality. This is nonspecific although a partial ampullary obstruction cannot be entirely excluded. Gallbladder polyps versus adherent stones. No sonographic evidence for cholecystitis. Labs: LFT's: 09/24 (AST 50, ALT 63, ALKP 136) -> 09/25 (AST 50, ALT 63, ALKP 136) - likely elevated transiently from CHF CA-125 slightly elevated CEA, AFP, CA 19-9 normal -GI consulted - EGD performed patient found to have duodenal polyp, esophagitis, and erythematous gastric mucosa; biopsy pending -CT abdomen w/o contrast 09/28- subcapsular hyperechoic lesion on US not clearly seen. Likely benign -Continue PPI -Monitor H/H -F/U EGD in 1 year; will sign off (7) COPD (chronic obstructive pulmonary disease) ICD Codes: J44.9 - Chronic obstructive pulmonary disease, unspecified Status: Chronic Plan: Possibly contributed to respiratory failure, though clinical picture more likely CHF Sputum culture with light growth normal respiratory aurora - Continue DuoNeb Q6H scheduled, Q6H PRN - Continue home Symbicort -Chronic home O2 as needed (8) Stage 1 skin ulcer of sacral region ICD Codes: L98.429 - Non-pressure chronic ulcer of back with unspecified severity Status: Acute Plan: Exam shows stage 1 ulcer with no skin breakdown - Ulcer prevention protocol - Consider routine wound care consult if does not improve (9) Diabetes ICD Codes: E11.9 - Type 2 diabetes mellitus without complications Plan: On metformin at home, in good control - Hold metformin - Accu-cheks, low novolog scale - hypoglycemia protocol - glucose goal 140-180 (10) Hypertension ICD Codes: I10 - Essential (primary) hypertension Status: Chronic Plan: Impression: Recently normotenstive - Continue beta rob, ACEi, diltiazem - Vasotec PRN BP > 200/100 (11) Chronic kidney disease (CKD) ICD Codes: N18.9 - Chronic kidney disease, unspecified Status: Chronic Plan: Impression: Mild CKD chronically; Baseline creatinine 1.6 on review of outpatient record Cr: 1.19 09/27 -> 1.5 today - Renally dose meds - Trend BMP (12) FEN/GI/PPx Plan: Fluids: Caution given CHF. PO only for now. Elecs: Monitor, replete PRN Nutrition: Diet heart healthy with 2 gm sodium restriction DVT: On Eliquis GI: Famotidine 20 mg daily (Sylvester Valentin MD R3) Problem Qualifiers (1) CHF (congestive heart failure): Qualified Codes: I50.23 - Acute on chronic systolic (congestive) heart failure (2) Respiratory failure: Qualified Codes: J96.01 - Acute respiratory failure with hypoxia (3) CAD (coronary artery disease): Qualified Codes: I25.10 - Atherosclerotic heart disease of [place] coronary artery without angina pectoris (4) COPD (chronic obstructive pulmonary disease): Qualified Codes: J44.9 - Chronic obstructive pulmonary disease, unspecified (5) Diabetes: Qualified Codes: E11.22 - Type 2 diabetes mellitus with diabetic chronic kidney disease; N18.3 - Chronic kidney disease, stage 3 (moderate) (6) Hypertension: Qualified Codes: I10 - Essential (primary) hypertension (7) Chronic kidney disease (CKD): Qualified Codes: N18.3 - Chronic kidney disease, stage 3 (moderate) Sylvester Valentin MD R3 October 01, 2017 10:06 Ever Roman MD October 01, 2017 13:54
[2017-10-01] MEDS: NYSTATIN SUSP 500,000 U/5 ML CUP SWISH-SPIT SCH ×4 (10:42→20:54)
[2017-10-01] MEDS: BUDESONIDE-FORMOTEROL 160/4.5 MCG INHALER INH SCH ×2 (10:42→20:53)
[2017-10-01] MEDS: DILTIAZEM-CD 300 MG CAP ER PO SCH (10:43)
[2017-10-01] MEDS: TICAGRELOR 90 MG TAB PO SCH ×2 (10:43→20:54)
[2017-10-01] MEDS: ATORVASTATIN 40 MG TAB PO SCH (10:43)
[2017-10-01] MEDS: APIXABAN 5 MG TABLET PO SCH ×2 (10:43→20:57)
[2017-10-01] MEDS: FUROSEMIDE 20 MG TAB PO SCH (10:43)
[2017-10-01] MEDS: METOPROLOL TARTRATE 50 MG TAB PO SCH ×2 (10:44→20:57)
[2017-10-01] MEDS: ENALAPRIL MALEATE 5 MG TAB PO SCH ×2 (10:44→20:57)
[2017-10-01] MEDS: FAMOTIDINE 20 MG TAB PO SCH (10:44)
[2017-10-01] MEDS: POTASSIUM CHLORIDE 10 MEQ CONTROLLED RELEASE TAB PO SCH (10:44)
[2017-10-01] MEDS: SODIUM CHLORIDE 0.9% FLUSH 10 ML FLUSH IV FLUSH SCH ×2 (10:45→20:56)
--- NOTE | 2017-10-01 15:33 | HHI.DCPOC ---
Discharge Care Plan Diagnosis: (1) CHF (congestive heart failure) (2) CAD (coronary artery disease) (3) Clostridium difficile carrier Goals to Promote Your Health * To prevent worsening of your condition and complications * To maintain your health at the optimal level Directions to Meet Your Goals Take your medications as prescribed Follow your dietary instruction Follow activity as directed Keep your appointments as scheduled Take your immunizations and boosters as scheduled If your symptoms worsen call your PCP, if no PCP go to Urgent Care Center or Emergency Room Smoking is Dangerous to Your Health. Avoid second hand smoke Call the 24-hour hour crisis hotline for domestic abuse at Sylvester Valentin MD R3 October 01, 2017 15:33
[2017-10-01] MEDS ORDERED: Nystatin Liq SWISH-SPIT (15:46)
[2017-10-01] MEDS ORDERED: FAMO20TA2 PO (15:46)
[2017-10-01] MEDS ORDERED: DILT300C3 PO (15:46)
[2017-10-01] MEDS ORDERED: ENAL5TAB PO (15:46)
[2017-10-01] MEDS ORDERED: KLOR10TA PO (15:46)
[2017-10-01] MEDS ORDERED: APIX5TAB PO (15:46)
[2017-10-01] MEDS: ACETAMINOPHEN 325 MG TAB PO PRN (21:08)
[2017-10-02] VITALS (10 sets, daily range): BP systolic 96–123; BP diastolic 55–77; PULSE 60–85; RESP 16–18; TEMP 97.6–98.1; O2SAT 98–100
[2017-10-02] MEDS: CHLORHEXIDINE GLUCONATE 2 % 1 PACK (2 CLOTHS) TOP SCH (00:12)
[2017-10-02 07:26] LABS: AUTOMATED NEUTROPHIL # 3.7 TH/MM3 (1.8-7.7); BASOPHIL # 0.1 TH/MM3 (0-0.2); BASOPHIL % 0.9 % (0.0-2.0); EOSINOPHIL # 0.2 TH/MM3 (0-0.4); EOSINOPHIL % 4.1 % (0.0-4.0); HEMATOCRIT 34.5 % (35.0-46.0); HEMOGLOBIN 11.1 GM/DL (11.6-15.3); LYMPH % 23.4 % (9.0-44.0); LYMPHOCYTE # 1.4 TH/MM3 (1.0-4.8); MEAN CELL VOLUME 92.8 FL (80.0-100.0); MEAN CORPUSCULAR HGB CONC 32.3 % (32.0-36.0); MEAN PLATELET VOLUME 8.7 FL (7.0-11.0); MONO % 9.8 % (0.0-8.0); MONOCYTE # 0.6 TH/MM3 (0-0.9); NEUT % 61.8 % (16.0-70.0); PLATELET COUNT 308 TH/MM3 (150-450); RED BLOOD COUNT 3.72 MIL/MM3 (4.00-5.30); RED CELL DISTRIBUTION WIDTH 14.6 % (11.6-17.2)
[2017-10-02 07:57] LABS: BICARBONATE 26.9 MEQ/L (21.0-32.0); CALCIUM 9.1 MG/DL (8.5-10.1); CREATININE 1.55 MG/DL (0.50-1.00)
[2017-10-02] MEDS: INSULIN ASPART SUPPLEMENTAL SCALE SQ SCH ×4 (08:00→21:00)
[2017-10-02] MEDS: METOPROLOL TARTRATE 50 MG TAB PO SCH ×2 (08:47→21:53)
[2017-10-02] MEDS: ENALAPRIL MALEATE 5 MG TAB PO SCH ×2 (08:47→21:53)
[2017-10-02] MEDS: FAMOTIDINE 20 MG TAB PO SCH (08:50)
[2017-10-02] MEDS: FUROSEMIDE 20 MG TAB PO SCH (08:50)
[2017-10-02] MEDS: SODIUM CHLORIDE 0.9% FLUSH 10 ML FLUSH IV FLUSH SCH ×2 (08:51→21:54)
[2017-10-02] MEDS: NYSTATIN SUSP 500,000 U/5 ML CUP SWISH-SPIT SCH ×4 (08:51→21:54)
[2017-10-02] MEDS: POTASSIUM CHLORIDE 10 MEQ CONTROLLED RELEASE TAB PO SCH (08:51)
[2017-10-02] MEDS: TICAGRELOR 90 MG TAB PO SCH ×2 (08:51→21:53)
[2017-10-02] MEDS: APIXABAN 5 MG TABLET PO SCH ×2 (08:51→21:53)
[2017-10-02] MEDS: DILTIAZEM-CD 300 MG CAP ER PO SCH (08:51)
[2017-10-02] MEDS: ATORVASTATIN 40 MG TAB PO SCH (08:52)
[2017-10-02] MEDS: BUDESONIDE-FORMOTEROL 160/4.5 MCG INHALER INH SCH ×2 (08:52→21:53)
--- NOTE | 2017-10-02 10:59 | HHI.FPPN ---
Subjective Remarks Mrs. Sosa was afebrile with stable vital signs overnight. Patient reports normal stools. No chest pain, shortness of breath, nausea/vomiting, or abnormal urination. Patient reports being ready to go to [facility]. (Sylvester Valentin MD R3) Objective Vitals Vital Signs Date Time Temp Pulse Resp B/P (MAP) Pulse Ox O2 Delivery O2 Flow Rate FiO2 10/02/17 08:00 97.6 68 18 107/68 (81) 99 10/02/17 04:00 66 10/02/17 03:55 98.1 75 16 112/58 (76) 98 10/02/17 00:00 66 10/01/17 23:30 97.3 64 16 114/56 (75) 98 10/01/17 20:45 97.8 69 16 107/61 (76) 99 10/01/17 20:00 68 10/01/17 19:00 100 Nasal Cannula 2.00 10/01/17 17:35 100 Nasal Cannula 2.00 10/01/17 16:09 97.5 67 17 133/60 (84) 99 10/01/17 16:00 Nasal Cannula 2.00 10/01/17 12:09 97.7 75 17 126/64 (84) 100 10/01/17 12:00 Nasal Cannula 2.00 10/01/17 11:10 2.00 I/O 10/01/17 10/01/17 10/01/17 10/02/17 10/02/17 10/02/17 07:00 15:00 23:00 07:00 15:00 23:00 Intake Total 240 ml 420 ml 480 ml Balance 240 ml 420 ml 480 ml Intake Oral 240 ml 420 ml 480 ml # Voids 4 5 5 # Bowel Movements 1 2 1 (Sylvester Valentin MD R3) Result Diagram: 10/02/17 0530 10/02/17 0530 Imaging Last Impressions Abdomen CT 09/28/17 0000 Signed Impressions: CONCLUSION: 1. Subcapsular hyperechoic lesion seen on ultrasound is not clearly seen on CT . This may be better evaluated on MRI. Statistically lesion is most likely sarita gn given circumscribed nature and increased echogenicity which can be seen with hemangioma or focal fat. Chest X-Ray 09/27/17 0700 Signed Impressions: CONCLUSION: Mild atelectasis right medial lung base. Interim extubation and nasogastric tub e removal. Abdomen Ultrasound 09/24/17 0000 Signed Impressions: CONCLUSION: 1. 1.8 cm hypoechoic subcapsular mass in the right lobe of the liver. This may represent focal fatty infiltration. However, differential considerations inclu de hemangioma and malignancy. Further characterization may be performed with MR I exam on an outpatient basis as clinically warranted. 2. Slightly prominent common bile duct and pancreatic duct without focal abnor mality. This is nonspecific although a partial ampullary obstruction cannot be entirely excluded. 3. Gallbladder polyps versus adherent stones. No sonographic evidence for chol ecystitis. 4. Trace ascites and small bilateral pleural effusions. Objective Remarks GENERAL: NAD SKIN: No visible rashes. Sacral ulcer not visualized today EYES: EOM grossly I. ENT: MMM CARDIOVASCULAR: Regular rate and rhythm; no murmurs to auscultation. No significant LE edema. RESPIRATORY: Normal rate and effort. On room air. CTAB; decreased breath sounds GASTROINTESTINAL: Abdomen soft, non-distended, non-tender. MUSCULOSKELETAL: Extremities without edema. grossly normal motor function and ROM NEUROLOGICAL: Awake and alert. Cranial nerves grossly intact. Grossly normal peripheral motor and sensory function (Sylvester Valentin MD R3) A/P Assessment and Plan 72 yo F with PMH of HTN, CHF, COPD, DM, AFib, CAD presenting with: (Sylvester Valentin MD R3) Attending Attestation Pt. examined independently and case discussed with resident physicians I have read the above note and agree with the assessment/plan as discussed with me I was involved in all medical decision making for this patient Ever Roman MD (Ever Roman MD) Problem List: (1) CHF (congestive heart failure) ICD Codes: I50.9 - Heart failure, unspecified Status: Acute Plan: 10/02: No concern for pulmonary vascular congestion or LE edema at this time. Net output? 0.8 kg loss overnight w/ 10 voids. Impression: Symptomatically improved Initially presented with respiratory failure, pulmonary edema on CXR Echo 08/11/17 with EF 45-50%, low-normal to mild systolic dysfunction BNP in 600s on admission. Per Cardiology; possibly precipitated by uncontrolled HR -Continue Lasix 20 mg PO daily -Continue KCl 10 mEq daily - Cardiology following, appreciate recs - Continue home BB - Continue enalapril 5 mg BID -f/u BMP in 2-3 days to monitor Cr (2) Respiratory failure ICD Codes: J96.90 - Respiratory failure, unspecified, unspecified whether with hypoxia or hypercapnia Status: Resolved Plan: 10/01: Mild shortness of breath. Patient saturating >95% on 2 L O2 via NC ; per nursing staff patient does well on room air Impression: Patient intubated 09/24 after failing CPAP in ED and having desaturations <70%. ABG on admission with pH 7.25. Patient improved and was subsequently extubated. Likely due to RVR in patient with significant CAD versus pulmonary edema / CHF based on initial CXR and BNP in the 600s Now resolved, tolerated extubation well; still needing oxygen - Manage comorbid conditions as below (3) Atrial fibrillation with RVR ICD Codes: I48.91 - Unspecified atrial fibrillation Status: Resolved Plan: Impression: Presented with AFib in RVR, HR now at goal. ACS rule-out negative - Cardiology consulted, appreciate recs - Diltiazem 90 mg PO Q6H -Metoprolol 50mg BID - Anticoagulation with Eliquis - Continue telemetry (4) CAD (coronary artery disease) ICD Codes: I25.10 - Atherosclerotic heart disease of [place] coronary artery without angina pectoris Status: Chronic Plan: Impression: CAD; no recent angina symptoms. 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 No leukocytosis or fevers Impression: C difficile toxin PCR positive, however patient had no diarrhea or leukocytosis or fever Suspect likely colonization - Hold vancomycin PO - Trend vitals, CBC; restart vancomycin if symptoms or signs of colitis develop (6) Abnormal findings on diagnostic imaging of abdomen ICD Codes: R93.5 - Abnormal findings on diagnostic imaging of other abdominal regions, including retroperitoneum Status: Acute Plan: Impression: Mild LFT elevations and concern for maroon colored stools on admission US Abdomen 09/24- 1.8 cm hypoechoic subcapsular mass in the right lobe of the liver. This may represent focal fatty infiltration. However, differential considerations include hemangioma and malignancy. Further characterization may be performed with MRI exam on an outpatient basis as clinically warranted. Slightly prominent common bile duct and pancreatic duct without focal abnormality. This is nonspecific although a partial ampullary obstruction cannot be entirely excluded. Gallbladder polyps versus adherent stones. No sonographic evidence for cholecystitis. Labs: LFT's: 09/24 (AST 50, ALT 63, ALKP 136) -> 09/25 (AST 50, ALT 63, ALKP 136) - likely elevated transiently from CHF CA-125 slightly elevated CEA, AFP, CA 19-9 normal -GI consulted - EGD performed patient found to have duodenal polyp, esophagitis, and erythematous gastric mucosa; biopsy pending -CT abdomen w/o contrast 09/28- subcapsular hyperechoic lesion on US not clearly seen. Likely benign -Continue PPI -Monitor H/H -F/U EGD in 1 year; will sign off -Patient will f/u as outpatient with GI for biopsy results (7) COPD (chronic obstructive pulmonary disease) ICD Codes: J44.9 - Chronic obstructive pulmonary disease, unspecified Status: Chronic Plan: Possibly contributed to respiratory failure, though clinical picture more likely CHF Sputum culture with light growth normal respiratory aurora - Continue DuoNeb Q6H scheduled, Q6H PRN - Continue home Symbicort -Chronic home O2 as needed (8) Stage 1 skin ulcer of sacral region ICD Codes: L98.429 - Non-pressure chronic ulcer of back with unspecified severity Status: Acute Plan: Exam shows stage 1 ulcer with no skin breakdown - Ulcer prevention protocol - Consider routine wound care consult if does not improve (9) Diabetes ICD Codes: E11.9 - Type 2 diabetes mellitus without complications Plan: On metformin at home, in good control - Hold metformin - Accu-cheks, low novolog scale - hypoglycemia protocol - glucose goal 140-180 (10) Hypertension ICD Codes: I10 - Essential (primary) hypertension Status: Chronic Plan: Impression: Recently normotenstive - Continue beta rob, ACEi, diltiazem - Vasotec PRN BP > 200/100 (11) Chronic kidney disease (CKD) ICD Codes: N18.9 - Chronic kidney disease, unspecified Status: Chronic Plan: Impression: Mild CKD chronically; Baseline creatinine 1.6 on review of outpatient record Cr: 1.19 09/27 -> 1.5.5 today - Renally dose meds - Trend BMP (12) FEN/GI/PPx Plan: Fluids: Caution given CHF. PO only for now. Elecs: Monitor, replete PRN Nutrition: Diet heart healthy with 2 gm sodium restriction DVT: On Eliquis GI: Famotidine 20 mg daily (Sylvester Valentin MD R3) Problem Qualifiers (1) CHF (congestive heart failure): Qualified Codes: I50.23 - Acute on chronic systolic (congestive) heart failure (2) Respiratory failure: Qualified Codes: J96.01 - Acute respiratory failure with hypoxia (3) CAD (coronary artery disease): Qualified Codes: I25.10 - Atherosclerotic heart disease of [place] coronary artery without angina pectoris (4) COPD (chronic obstructive pulmonary disease): Qualified Codes: J44.9 - Chronic obstructive pulmonary disease, unspecified (5) Diabetes: Qualified Codes: E11.22 - Type 2 diabetes mellitus with diabetic chronic kidney disease; N18.3 - Chronic kidney disease, stage 3 (moderate) (6) Hypertension: Qualified Codes: I10 - Essential (primary) hypertension (7) Chronic kidney disease (CKD): Qualified Codes: N18.3 - Chronic kidney disease, stage 3 (moderate) Sylvester Valentin MD R3 Oct 02, 2017 10:59 Ever Roman MD Oct 02, 2017 15:28
[2017-10-03] VITALS (10 sets, daily range): BP systolic 104–120; BP diastolic 55–66; PULSE 54–75; RESP 16–18; TEMP 96.4–98; O2SAT 98–100
[2017-10-03] MEDS: CHLORHEXIDINE GLUCONATE 2 % 1 PACK (2 CLOTHS) TOP SCH ×2 (04:00→20:55)
[2017-10-03] MEDS: INSULIN ASPART SUPPLEMENTAL SCALE SQ SCH ×4 (08:00→21:00)
[2017-10-03] MEDS: SODIUM CHLORIDE 0.9% FLUSH 10 ML FLUSH IV FLUSH SCH ×2 (09:00→20:47)
--- NOTE | 2017-10-03 09:22 | HHI.FPPN ---
Subjective Remarks Mrs. Sosa was afebrile with stable vital signs overnight. Patient has had normal bowel movements. Patient reports some chest pain when she inspires deeply and feels that she is coughing up more sputum than usual. She also feels that she gets more tired when walking to the bathroom; she wears 2 L O2 at home. No chest pain or abdominal pain. No urinary complaints. Patient feels ready to go to rehab. (Sylvester Valentin MD R3) Objective Vitals Vital Signs Date Time Temp Pulse Resp B/P (MAP) Pulse Ox O2 Delivery O2 Flow Rate FiO2 10/03/17 07:15 Nasal Cannula 2.00 10/03/17 04:18 98.0 63 16 115/66 (82) 100 10/03/17 04:00 62 10/03/17 00:00 72 10/02/17 23:37 97.8 67 16 115/77 (90) 100 10/02/17 22:00 Nasal Cannula 2.00 10/02/17 20:53 98.0 61 16 108/55 (72) 100 10/02/17 20:00 71 10/02/17 16:00 Nasal Cannula 2.00 10/02/17 16:00 97.6 74 18 96/65 (75) 100 10/02/17 15:38 79 10/02/17 12:00 97.9 74 18 123/62 (82) 99 10/02/17 12:00 85 10/02/17 12:00 Nasal Cannula 2.00 10/02/17 11:38 Nasal Cannula 2.00 I/O 10/02/17 10/02/17 10/02/17 10/03/17 10/03/17 10/03/17 07:00 15:00 23:00 07:00 15:00 23:00 Intake Total 480 ml 240 ml Output Total 450 ml Balance 480 ml -210 ml Intake Oral 480 ml 240 ml Output Urine Total 450 ml # Voids 5 # Bowel Movements 1 1 (Sylvester Valentin MD R3) Result Diagram: 10/02/17 0530 10/02/17 0530 Imaging Last Impressions Abdomen CT 09/28/17 0000 Signed Impressions: CONCLUSION: 1. Subcapsular hyperechoic lesion seen on ultrasound is not clearly seen on CT . This may be better evaluated on MRI. Statistically lesion is most likely sarita gn given circumscribed nature and increased echogenicity which can be seen with hemangioma or focal fat. Chest X-Ray 09/27/17 0700 Signed Impressions: CONCLUSION: Mild atelectasis right medial lung base. Interim extubation and nasogastric tub e removal. Abdomen Ultrasound 09/24/17 0000 Signed Impressions: CONCLUSION: 1. 1.8 cm hypoechoic subcapsular mass in the right lobe of the liver. This may represent focal fatty infiltration. However, differential considerations inclu de hemangioma and malignancy. Further characterization may be performed with MR I exam on an outpatient basis as clinically warranted. 2. Slightly prominent common bile duct and pancreatic duct without focal abnor mality. This is nonspecific although a partial ampullary obstruction cannot be entirely excluded. 3. Gallbladder polyps versus adherent stones. No sonographic evidence for chol ecystitis. 4. Trace ascites and small bilateral pleural effusions. Objective Remarks GENERAL: NAD SKIN: No visible rashes. Sacral ulcer not visualized today EYES: EOM grossly I. ENT: MMM CARDIOVASCULAR: Regular rate and rhythm; no murmurs to auscultation. No significant LE edema. RESPIRATORY: on 2L O2 via NC. Normal rate and effort. On room air. CTAB; decreased breath sounds. Reported mild right sided chest pain on deep inspiration. GASTROINTESTINAL: Abdomen soft, non-distended, non-tender. MUSCULOSKELETAL: Extremities without edema. grossly normal motor function and ROM NEUROLOGICAL: Awake and alert. Cranial nerves grossly intact. Grossly normal peripheral motor and sensory function (Sylvester Valentin MD R3) A/P Assessment and Plan 72 yo F with PMH of HTN, CHF, COPD, DM, AFib, CAD presenting with: (Sylvester Valentin MD R3) Attending Attestation Pt. examined independently and case discussed with resident physicians. I have read the above note and agree with the assessment and plan as discussed with me. I was involved in all medical decision making for this patient. Ever Roman MD (Ever Roman MD) Problem List: (1) CHF (congestive heart failure) ICD Codes: I50.9 - Heart failure, unspecified Status: Acute Plan: 10/03: No concern for pulmonary vascular congestion or LE edema at this time. Net output 1200ml overnight. Stable weight Impression: Symptomatically improved Initially presented with respiratory failure, pulmonary edema on CXR Echo 08/11/17 with EF 45-50%, low-normal to mild systolic dysfunction BNP in 600s on admission. Per Cardiology; possibly precipitated by uncontrolled HR -Continue Lasix 20 mg PO daily -Continue KCl 10 mEq daily - Cardiology following, appreciate recs - Continue home BB - Continue enalapril 5 mg BID -f/u BMP in 2-3 days to monitor Cr (2) Respiratory failure ICD Codes: J96.90 - Respiratory failure, unspecified, unspecified whether with hypoxia or hypercapnia Status: Resolved Plan: 10/02: Some pleuritic pain on inspiration. Some shortness of breath with inspiration and sputum production. O2 sats ~100% on home O2 via NC. Impression: Patient intubated 09/24 after failing CPAP in ED and having desaturations <70%. ABG on admission with pH 7.25. Patient improved and was subsequently extubated. Likely due to RVR in patient with significant CAD versus pulmonary edema / CHF based on initial CXR and BNP in the 600s Now resolved, tolerated extubation well; still needing oxygen - Manage comorbid conditions as below -Will repeat CXR -Will repeat home O2 walk test for discharge planning with rehab (3) Atrial fibrillation with RVR ICD Codes: I48.91 - Unspecified atrial fibrillation Status: Resolved Plan: Impression: Presented with AFib in RVR, HR now at goal. ACS rule-out negative - Cardiology consulted, appreciate recs - Diltiazem 90 mg PO Q6H -Metoprolol 50mg BID - Anticoagulation with Eliquis - Continue telemetry (4) CAD (coronary artery disease) ICD Codes: I25.10 - Atherosclerotic heart disease of [place] coronary artery without angina pectoris Status: Chronic Plan: Impression: CAD; no recent angina symptoms. 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 No leukocytosis or fevers Impression: C difficile toxin PCR positive, however patient had no diarrhea or leukocytosis or fever Suspect likely colonization - Hold vancomycin PO - Trend vitals, CBC; restart vancomycin if symptoms or signs of colitis develop (6) Abnormal findings on diagnostic imaging of abdomen ICD Codes: R93.5 - Abnormal findings on diagnostic imaging of other abdominal regions, including retroperitoneum Status: Acute Plan: Impression: Mild LFT elevations and concern for maroon colored stools on admission US Abdomen 09/24- 1.8 cm hypoechoic subcapsular mass in the right lobe of the liver. This may represent focal fatty infiltration. However, differential considerations include hemangioma and malignancy. Further characterization may be performed with MRI exam on an outpatient basis as clinically warranted. Slightly prominent common bile duct and pancreatic duct without focal abnormality. This is nonspecific although a partial ampullary obstruction cannot be entirely excluded. Gallbladder polyps versus adherent stones. No sonographic evidence for cholecystitis. Labs: LFT's: 09/24 (AST 50, ALT 63, ALKP 136) -> 09/25 (AST 50, ALT 63, ALKP 136) - likely elevated transiently from CHF CA-125 slightly elevated CEA, AFP, CA 19-9 normal -GI consulted - EGD performed patient found to have duodenal polyp, esophagitis, and erythematous gastric mucosa; biopsy pending -CT abdomen w/o contrast 09/28- subcapsular hyperechoic lesion on US not clearly seen. Likely benign -Continue PPI -Monitor H/H -F/U EGD in 1 year; will sign off -Patient will f/u as outpatient with GI for biopsy results (7) COPD (chronic obstructive pulmonary disease) ICD Codes: J44.9 - Chronic obstructive pulmonary disease, unspecified Status: Chronic Plan: Possibly contributed to respiratory failure, though clinical picture more likely CHF Sputum culture with light growth normal respiratory aurora - Continue DuoNeb Q6H scheduled, Q6H PRN - Continue home Symbicort -Chronic home O2 as needed -Repeat CXR and walk test as above (8) Stage 1 skin ulcer of sacral region ICD Codes: L98.429 - Non-pressure chronic ulcer of back with unspecified severity Status: Acute Plan: Exam shows stage 1 ulcer with no skin breakdown - Ulcer prevention protocol - Consider routine wound care consult if does not improve (9) Diabetes ICD Codes: E11.9 - Type 2 diabetes mellitus without complications Plan: On metformin at home, in good control - Hold metformin - Accu-cheks, low novolog scale - hypoglycemia protocol - glucose goal 140-180 (10) Hypertension ICD Codes: I10 - Essential (primary) hypertension Status: Chronic Plan: Impression: Recently normotenstive - Continue beta rob, ACEi, diltiazem - Vasotec PRN BP > 200/100 (11) Chronic kidney disease (CKD) ICD Codes: N18.9 - Chronic kidney disease, unspecified Status: Chronic Plan: Impression: Mild CKD chronically; Baseline creatinine 1.6 on review of outpatient record Cr: 1.19 09/27 -> 1.5.5 today - Renally dose meds - Trend BMP (12) FEN/GI/PPx Plan: Fluids: Caution given CHF. PO only for now. Elecs: Monitor, replete PRN Nutrition: Diet heart healthy with 2 gm sodium restriction DVT: On Eliquis GI: Famotidine 20 mg daily (Sylvester Valentin MD R3) Problem Qualifiers (1) CHF (congestive heart failure): Qualified Codes: I50.23 - Acute on chronic systolic (congestive) heart failure (2) Respiratory failure: Qualified Codes: J96.01 - Acute respiratory failure with hypoxia (3) CAD (coronary artery disease): Qualified Codes: I25.10 - Atherosclerotic heart disease of [place] coronary artery without angina pectoris (4) COPD (chronic obstructive pulmonary disease): Qualified Codes: J44.9 - Chronic obstructive pulmonary disease, unspecified (5) Diabetes: Qualified Codes: E11.22 - Type 2 diabetes mellitus with diabetic chronic kidney disease; N18.3 - Chronic kidney disease, stage 3 (moderate) (6) Hypertension: Qualified Codes: I10 - Essential (primary) hypertension (7) Chronic kidney disease (CKD): Qualified Codes: N18.3 - Chronic kidney disease, stage 3 (moderate) Sylvester Valentin MD R3 Oct 03, 2017 09:22 Ever Roman MD Oct 03, 2017 12:14
[2017-10-03] MEDS: DILTIAZEM-CD 300 MG CAP ER PO SCH (09:28)
[2017-10-03] MEDS: NYSTATIN SUSP 500,000 U/5 ML CUP SWISH-SPIT SCH ×4 (09:28→20:55)
[2017-10-03] MEDS: FUROSEMIDE 20 MG TAB PO SCH (09:28)
[2017-10-03] MEDS: METOPROLOL TARTRATE 50 MG TAB PO SCH ×2 (09:28→20:46)
[2017-10-03] MEDS: ATORVASTATIN 40 MG TAB PO SCH (09:28)
[2017-10-03] MEDS: ENALAPRIL MALEATE 5 MG TAB PO SCH ×2 (09:29→20:47)
[2017-10-03] MEDS: FAMOTIDINE 20 MG TAB PO SCH (09:29)
[2017-10-03] MEDS: POTASSIUM CHLORIDE 10 MEQ CONTROLLED RELEASE TAB PO SCH (09:29)
[2017-10-03] MEDS: TICAGRELOR 90 MG TAB PO SCH ×2 (09:29→20:46)
[2017-10-03] MEDS: APIXABAN 5 MG TABLET PO SCH ×2 (09:30→20:46)
[2017-10-03] MEDS: BUDESONIDE-FORMOTEROL 160/4.5 MCG INHALER INH SCH ×2 (09:32→20:47)
--- NOTE | 2017-10-03 11:22 | RADRPT ---
EXAM DATE: 10/03/2017 11:18 AM EDT AGE/SEX: 72 years / Female INDICATIONS: Shortness of breath and lower chest pain with deep breathing. CLINICAL DATA: This is the patient's initial encounter. Patient reports that signs and symptoms have been present for 1 day and indicates a pain score of 2/10. MEDICAL/SURGICAL HISTORY: . Myocardial infarction. Chronic obstructive pulmonary disease. . CA BG. Cardiac stent. COMPARISON: [facility], CHEST SINGLE AP, 09/27/2017. . FINDINGS: A single AP view of the chest demonstrates the lungs to be symmetrically aerated without evidence of mass, infiltrate or effusion. Multiple intact median sternotomy wires. Heart size appears normal. Mil d tortuosity of the thoracic aorta. Osseous structures are intact. CONCLUSION: Negative examination. Electronically signed by: Debo Moore MD 10/03/2017 11:21 AM EDT
[2017-10-04] VITALS (10 sets, daily range): BP systolic 97–119; BP diastolic 55–69; PULSE 60–85; RESP 17–20; TEMP 97.1–98.1; O2SAT 98–100
[2017-10-04] MEDS: INSULIN ASPART SUPPLEMENTAL SCALE SQ SCH ×4 (07:55→21:00)
--- NOTE | 2017-10-04 08:43 | PD.CARD.PN ---
Subjective Subjective Remarks c/o mild left sided chest pain with deep breath lasting 1-3 seconds, no angina Objective Medications Current Medications Medications (Trade) Dose Ordered Sig/Hilda Route Start Time Stop Time Status Last Admin (NS Flush) 2 ml UNSCH PRN IV FLUSH 09/24/17 05:45 (NS Flush) 2 ml BID IV FLUSH 09/24/17 09:00 10/03/17 09:00 ([facility] [place] [facility] Information) 1 Q361D XX 09/24/17 05:45 09/24/17 05:45 (Chlorhexidine 2% Cloth) Taper DAILY@04 TOP 09/25/17 04:00 09/21/18 03:59 09/26/17 04:00 (Chlorhexidine 2% Cloth) 3 pack UNSCH PRN TOP 09/24/17 05:45 (Milk Of Magnesia Liq) 30 ml Q12H PRN PO 09/24/17 05:45 (Senokot) 17.2 mg Q12H PRN PO 09/24/17 05:45 (Dulcolax Supp) 10 mg DAILY PRN RECTAL 09/24/17 05:45 (Lactulose Liq) 30 ml DAILY PRN PO 09/24/17 05:45 (Duoneb Neb) 1 ampule Q4HR NEB PRN NEB 09/24/17 12:00 (Nitroglycerin 2% Oint) 0.5 inch Q8HR PRN TOPICAL 09/24/17 12:00 (Lopressor) 50 mg Q12HR PO 09/24/17 21:00 10/03/17 20:46 (Brilinta) 90 mg BID PO 09/24/17 21:00 Future hold 10/03/17 20:46 (Lipitor) 40 mg DAILY PO 09/25/17 09:00 10/03/17 09:28 (VANCOMYCIN for oral use only) 125 mg QID PO 09/24/17 13:00 Future Hold 09/26/17 14:46 (Symbicort 160-4.5 Mcg Inh) 2 puff BID INH 09/24/17 21:00 10/03/17 20:47 (Eliquis) 5 mg BID PO 09/25/17 21:00 Future hold 10/03/17 20:46 (Tylenol) 650 mg Q4H PRN PO 09/25/17 23:30 10/01/17 21:08 (Vasotec) 5 mg BID PO 09/26/17 09:00 10/03/17 20:47 (Vaseline Oint) 1 applic UNSCH PRN TOPICAL 09/26/17 18:30 (Pepcid) 20 mg DAILY PO 09/27/17 09:00 10/03/17 09:29 (Vasotec Inj) 1.25 mg Q6H PRN IV PUSH 09/26/17 19:15 ([place] 5-325 Mg) 1 tab Q6H PRN PO 09/26/17 19:15 09/29/17 09:27 (Lasix) 20 mg DAILY PO 09/27/17 09:00 10/03/17 09:28 (D50w (Vial) Inj) 50 ml UNSCH PRN IV PUSH 09/26/17 19:45 (Glucagon Inj) 1 mg UNSCH PRN OTHER 09/26/17 19:45 (NovoLOG SUPPLEMENTAL SCALE) 1 ACHS SLIDING SCALE SQ 09/26/17 21:00 10/02/17 18:59 (Phenergan Inj) 25 mg Q6H PRN IM 09/27/17 22:45 (Zofran Odt) 4 mg Q6H PRN PO 09/27/17 22:45 09/27/17 22:47 (Mycostatin Liq) 5 ml QID SWISH-SPIT 09/30/17 14:00 10/03/17 20:55 (Cardizem Cd) 240 mg DAILY PO 10/04/17 09:00 (KCl) 20 meq DAILY PO 10/04/17 09:00 Magnesium Sulfate/ Dextrose 100 ml @ 100 mls/hr ONCE PRN IV 10/04/17 08:45 10/04/17 10:45 Vital Signs / I&O Vital Signs Date Time Temp Pulse Resp B/P (MAP) Pulse Ox O2 Delivery O2 Flow Rate FiO2 10/04/17 06:00 97.8 67 18 107/59 (75) 100 10/04/17 04:43 62 10/04/17 01:39 73 112/56 (74) 10/04/17 00:42 73 10/04/17 00:00 97.1 73 17 112/69 (83) 100 10/03/17 20:51 113/59 (77) 10/03/17 20:00 66 10/03/17 20:00 97.7 65 17 104/55 (71) 99 10/03/17 16:56 96.4 72 18 113/57 (75) 98 10/03/17 16:30 59 10/03/17 12:00 97.4 55 18 120/66 (84) 99 10/03/17 12:00 70 10/03/17 11:45 Nasal Cannula 2.00 I/O 10/03/17 10/03/17 10/03/17 10/04/17 10/04/17 10/04/17 07:00 15:00 23:00 07:00 15:00 23:00 Intake Total 240 ml 480 ml 120 ml Output Total 450 ml Balance -210 ml 480 ml 120 ml Intake Oral 240 ml 480 ml 120 ml Output Urine Total 450 ml # Voids 2 2 # Bowel Movements 1 0 Physical Exam AxOx3 No JVD Chest: diminished BS CV S1S2 irr irr. no murmur heard tel: 3" pause 0617, 3.3" pause 0454. VT runs: 7 beats 01:31. 8 beats 16:23 10/03, 4 beats 19:48 10/02, 7 beats 01:31 10/02, 3 beats 10:13 10/01 no edema Assessment and Plan Problem List: (1) Paroxysmal atrial fibrillation ICD Codes: I48.0 - Paroxysmal atrial fibrillation Status: Chronic Plan: rate a little slow. Reduce Dilt from 300 to 240mg daily (2) CHF (congestive heart failure) ICD Codes: I50.9 - Heart failure, unspecified Status: Acute (3) CAD (coronary artery disease) ICD Codes: I25.10 - Atherosclerotic heart disease of [place] coronary artery without angina pectoris Status: Chronic Plan: stable, no angina (4) Ventricular tachycardia, nonsustained ICD Codes: I47.2 - Ventricular tachycardia Plan: asymptomatic. EF not low enough to need AICD. Increase KCL to 20meq to keep K+ > 4. Check magnesium level Problem Qualifiers (1) CHF (congestive heart failure): Qualified Codes: I50.23 - Acute on chronic systolic (congestive) heart failure (2) CAD (coronary artery disease): Qualified Codes: I25.10 - Atherosclerotic heart disease of [place] coronary artery without angina pectoris Marco Vaca MD Oct 04, 2017 08:43
[2017-10-04] MEDS ORDERED: MAGNESIUM SULFATE 1 GM PREMIX 100 ML IV PRN (08:45)
[2017-10-04] MEDS: POTASSIUM CHLORIDE 10 MEQ CONTROLLED RELEASE TAB PO SCH (08:58)
[2017-10-04] MEDS: ENALAPRIL MALEATE 5 MG TAB PO SCH ×2 (08:58→21:34)
[2017-10-04] MEDS: ATORVASTATIN 40 MG TAB PO SCH (08:58)
[2017-10-04] MEDS: NYSTATIN SUSP 500,000 U/5 ML CUP SWISH-SPIT SCH ×4 (08:58→21:34)
[2017-10-04] MEDS: TICAGRELOR 90 MG TAB PO SCH ×2 (08:58→21:32)
[2017-10-04] MEDS: DILTIAZEM-CD 240 MG CAP ER PO SCH (08:59)
[2017-10-04] MEDS: METOPROLOL TARTRATE 50 MG TAB PO SCH ×2 (08:59→21:33)
[2017-10-04] MEDS: FAMOTIDINE 20 MG TAB PO SCH (09:00)
[2017-10-04] MEDS: FUROSEMIDE 20 MG TAB PO SCH (09:00)
[2017-10-04] MEDS: SODIUM CHLORIDE 0.9% FLUSH 10 ML FLUSH IV FLUSH SCH ×2 (09:00→21:38)
[2017-10-04] MEDS: APIXABAN 5 MG TABLET PO SCH ×2 (09:00→21:33)
[2017-10-04] MEDS: BUDESONIDE-FORMOTEROL 160/4.5 MCG INHALER INH SCH ×2 (09:01→21:37)
--- NOTE | 2017-10-04 10:42 | HHI.FPPN ---
Subjective Remarks Mrs. Sosa was afebrile with stable vital signs overnight (mild hypotension; MAP 69). Per discussion with night team, patient had episode of nonsustained ventricular tachycardia x 7 beats last night. Patient denies feeling chest pain or any other symptoms overnight. Patient clarified her pain with deep inspiration, stating that it has been present chronically since prior to 07/2017. Patient states that she usually does not feel it unless asked to inspire deeply by a medical provider. Patient reports normal bowel movements and urination. (Sylvester Valentin MD R3) Objective Vitals Vital Signs Date Time Temp Pulse Resp B/P (MAP) Pulse Ox O2 Delivery O2 Flow Rate FiO2 10/04/17 08:00 97.7 66 18 97/55 (69) 98 10/04/17 06:00 97.8 67 18 107/59 (75) 100 10/04/17 04:43 62 10/04/17 01:39 73 112/56 (74) 10/04/17 00:42 73 10/04/17 00:00 97.1 73 17 112/69 (83) 100 10/03/17 20:51 113/59 (77) 10/03/17 20:00 66 10/03/17 20:00 97.7 65 17 104/55 (71) 99 10/03/17 16:56 96.4 72 18 113/57 (75) 98 10/03/17 16:30 59 10/03/17 12:00 97.4 55 18 120/66 (84) 99 10/03/17 12:00 70 10/03/17 11:45 Nasal Cannula 2.00 I/O 10/03/17 10/03/17 10/03/17 10/04/17 10/04/17 10/04/17 07:00 15:00 23:00 07:00 15:00 23:00 Intake Total 240 ml 480 ml 120 ml Output Total 450 ml Balance -210 ml 480 ml 120 ml Intake Oral 240 ml 480 ml 120 ml Output Urine Total 450 ml # Voids 2 2 # Bowel Movements 1 0 (Sylvester Valentin MD R3) Result Diagram: 10/02/17 0530 10/02/17 0530 Imaging Last Impressions Chest X-Ray 10/03/17 0000 Signed Impressions: CONCLUSION: Negative examination. Abdomen CT 09/28/17 0000 Signed Impressions: CONCLUSION: 1. Subcapsular hyperechoic lesion seen on ultrasound is not clearly seen on CT . This may be better evaluated on MRI. Statistically lesion is most likely sarita gn given circumscribed nature and increased echogenicity which can be seen with hemangioma or focal fat. Abdomen Ultrasound 09/24/17 0000 Signed Impressions: CONCLUSION: 1. 1.8 cm hypoechoic subcapsular mass in the right lobe of the liver. This may represent focal fatty infiltration. However, differential considerations inclu de hemangioma and malignancy. Further characterization may be performed with MR I exam on an outpatient basis as clinically warranted. 2. Slightly prominent common bile duct and pancreatic duct without focal abnor mality. This is nonspecific although a partial ampullary obstruction cannot be entirely excluded. 3. Gallbladder polyps versus adherent stones. No sonographic evidence for chol ecystitis. 4. Trace ascites and small bilateral pleural effusions. Objective Remarks GENERAL: NAD SKIN: No visible rashes. Sacral ulcer not visualized today EYES: EOM grossly I. ENT: MMM CARDIOVASCULAR: Regular rate and rhythm; no murmurs to auscultation. No significant LE edema. RESPIRATORY: on room air. Normal rate and effort. On room air. CTAB; decreased breath sounds. Continued mild left sided chest pain on deep inspiration. GASTROINTESTINAL: Abdomen soft, non-distended, non-tender. MUSCULOSKELETAL: Extremities without edema. grossly normal motor function and ROM NEUROLOGICAL: Awake and alert. Cranial nerves grossly intact. Grossly normal peripheral motor and sensory function (Sylvester Valentin MD R3) A/P Assessment and Plan 72 yo F with PMH of HTN, CHF, COPD, DM, AFib, CAD presenting with: Discharge Planning Anticipate discharge to SNF tomorrow (Sylvester Valentin MD R3) Attending Attestation Pt. examined independently and case discussed with resident physicians. I have read the above note and agree with the assessment and plan as discussed with me. I was involved in all medical decision making for this patient. Ever Roman MD (Ever Roman MD) Problem List: (1) CHF (congestive heart failure) ICD Codes: I50.9 - Heart failure, unspecified Status: Acute Plan: 10/04: No concern for pulmonary vascular congestion or LE edema at this time. Net output ? overnight. Weight gain of 1 kg. Ventricular tachycardia x7 beats overnight. Per Cardiology review- 7 beats Vtach at ~130AM, 8 beats /2 at ~1620, several other brief periods of v tach 10/02- 10/04 Impression: Symptomatically improved Initially presented with respiratory failure, pulmonary edema on CXR. Ventricular tachycardic episodes nonsustained, asymptomatic Echo 08/11/17 with EF 45-50%, low-normal to mild systolic dysfunction BNP in 600s on admission. Per Cardiology; possibly precipitated by uncontrolled HR -Continue Lasix 20 mg PO daily - Cardiology following, appreciate recs - Continue home BB - Continue enalapril 5 mg BID -Increase KCl to 20 meq daily to keep above 4 -Check Mg, BMP -Due to EF 45-50%, AICD not needed currently (2) Atrial fibrillation with RVR ICD Codes: I48.91 - Unspecified atrial fibrillation Status: Resolved Plan: Impression: Presented with AFib in RVR, HR now at goal. ACS rule-out negative - Cardiology consulted, appreciate recs -Reduce Diltiazem to 240mg daily -Metoprolol 50mg BID - Anticoagulation with Eliquis - Continue telemetry (3) Respiratory failure ICD Codes: J96.90 - Respiratory failure, unspecified, unspecified whether with hypoxia or hypercapnia Status: Resolved Plan: 10/04: Continued pleuritic pain on inspiration. Some shortness of breath with inspiration and sputum production. O2 sats ~100% on home O2 via NC. Impression: Patient intubated 09/24 after failing CPAP in ED and having desaturations <70%. ABG on admission with pH 7.25. Patient improved and was subsequently extubated. Likely due to RVR in patient with significant CAD versus pulmonary edema / CHF based on initial CXR and BNP in the 600s CXR 10/03- Negative examination - Manage comorbid conditions as below -Patient reassured that pleuritic vs MSK pain is likely of no significance at this time since chronic, no concern for pleuritic disease or intercostal injury. Patient agrees to let us know if pain changes or increases (4) CAD (coronary artery disease) ICD Codes: I25.10 - Atherosclerotic heart disease of [place] coronary artery without angina pectoris Status: Chronic Plan: Impression: CAD; no recent angina symptoms. 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 No leukocytosis or fevers Impression: C difficile toxin PCR positive, however patient had no diarrhea or leukocytosis or fever Suspect likely colonization - Hold vancomycin PO - Trend vitals, CBC; restart vancomycin if symptoms or signs of colitis develop (6) Abnormal findings on diagnostic imaging of abdomen ICD Codes: R93.5 - Abnormal findings on diagnostic imaging of other abdominal regions, including retroperitoneum Status: Acute Plan: Impression: Mild LFT elevations and concern for maroon colored stools on admission US Abdomen 09/24- 1.8 cm hypoechoic subcapsular mass in the right lobe of the liver. This may represent focal fatty infiltration. However, differential considerations include hemangioma and malignancy. Further characterization may be performed with MRI exam on an outpatient basis as clinically warranted. Slightly prominent common bile duct and pancreatic duct without focal abnormality. This is nonspecific although a partial ampullary obstruction cannot be entirely excluded. Gallbladder polyps versus adherent stones. No sonographic evidence for cholecystitis. Labs: LFT's: 09/24 (AST 50, ALT 63, ALKP 136) -> 09/25 (AST 50, ALT 63, ALKP 136) - likely elevated transiently from CHF CA-125 slightly elevated CEA, AFP, CA 19-9 normal -GI consulted - EGD performed patient found to have duodenal polyp, esophagitis, and erythematous gastric mucosa; biopsy pending -CT abdomen w/o contrast 09/28- subcapsular hyperechoic lesion on US not clearly seen. Likely benign -Continue PPI -Monitor H/H -F/U EGD in 1 year; will sign off -Patient will f/u as outpatient with GI for biopsy results (7) COPD (chronic obstructive pulmonary disease) ICD Codes: J44.9 - Chronic obstructive pulmonary disease, unspecified Status: Chronic Plan: Possibly contributed to respiratory failure, though clinical picture more likely CHF Sputum culture with light growth normal respiratory aurora CXR 10/03 unremarkable - Continue DuoNeb Q6H scheduled, Q6H PRN - Continue home Symbicort -Chronic home O2 as needed (8) Stage 1 skin ulcer of sacral region ICD Codes: L98.429 - Non-pressure chronic ulcer of back with unspecified severity Status: Acute Plan: Exam shows stage 1 ulcer with no skin breakdown - Ulcer prevention protocol - Consider routine wound care consult if does not improve (9) Diabetes ICD Codes: E11.9 - Type 2 diabetes mellitus without complications Plan: On metformin at home, in good control - Hold metformin - Accu-cheks, low novolog scale - hypoglycemia protocol - glucose goal 140-180 (10) Hypertension ICD Codes: I10 - Essential (primary) hypertension Status: Chronic Plan: Impression: Recently normotenstive - Continue beta rob, ACEi, diltiazem - Vasotec PRN BP > 200/100 (11) Chronic kidney disease (CKD) ICD Codes: N18.9 - Chronic kidney disease, unspecified Status: Chronic Plan: Impression: Mild CKD chronically; Baseline creatinine 1.6 on review of outpatient record Cr: 1.19 09/27 -> 1.5.5 today - Renally dose meds - Trend BMP (12) FEN/GI/PPx Plan: Fluids: Caution given CHF. PO only for now. Elecs: Monitor, replete PRN Nutrition: Diet heart healthy with 2 gm sodium restriction DVT: On Eliquis GI: Famotidine 20 mg daily (Sylvester Valentin MD R3) Problem Qualifiers (1) CHF (congestive heart failure): Qualified Codes: I50.23 - Acute on chronic systolic (congestive) heart failure (2) Respiratory failure: Qualified Codes: J96.01 - Acute respiratory failure with hypoxia (3) CAD (coronary artery disease): Qualified Codes: I25.10 - Atherosclerotic heart disease of [place] coronary artery without angina pectoris (4) COPD (chronic obstructive pulmonary disease): Qualified Codes: J44.9 - Chronic obstructive pulmonary disease, unspecified (5) Diabetes: Qualified Codes: E11.22 - Type 2 diabetes mellitus with diabetic chronic kidney disease; N18.3 - Chronic kidney disease, stage 3 (moderate) (6) Hypertension: Qualified Codes: I10 - Essential (primary) hypertension (7) Chronic kidney disease (CKD): Qualified Codes: N18.3 - Chronic kidney disease, stage 3 (moderate) Sylvester Valentin MD R3 Oct 04, 2017 10:42 Ever Roman MD Oct 04, 2017 13:55
[2017-10-04 12:20] LABS: BICARBONATE 26.4 MEQ/L (21.0-32.0); CALCIUM 9.1 MG/DL (8.5-10.1); CREATININE 1.78 MG/DL (0.50-1.00); MAGNESIUM 2.1 MG/DL (1.5-2.5)
[2017-10-05] VITALS (7 sets, daily range): BP systolic 98–129; BP diastolic 53–69; PULSE 57–92; RESP 17–19; TEMP 97.5–98.7; O2SAT 99–100
[2017-10-05] MEDS: CHLORHEXIDINE GLUCONATE 2 % 1 PACK (2 CLOTHS) TOP SCH (04:00)
[2017-10-05] MEDS: INSULIN ASPART SUPPLEMENTAL SCALE SQ SCH ×2 (08:00→12:00)
--- NOTE | 2017-10-05 08:52 | HHI.FPPN ---
Subjective Remarks Mrs. Sosa was afebrile with stable vital signs overnight. Patient reports starting to have diarrhea overnight; her stools changed from tannish to greenish. She estimates ~5 total episodes of diarrhea overnight. Patient also reports having had chills yesterday. Patient states that her breathing, chest pain with deep inspiration, and urinary function are unchanged. Patient tearful; reports frustration with her recent symptoms. (Sylvester Valentin MD R3) Objective Vitals Vital Signs Date Time Temp Pulse Resp B/P (MAP) Pulse Ox O2 Delivery O2 Flow Rate FiO2 10/05/17 04:00 Nasal Cannula 2.00 10/05/17 04:00 98.0 66 19 121/56 (77) 99 10/05/17 04:00 64 10/05/17 00:00 80 10/05/17 00:00 Nasal Cannula 2.00 10/05/17 00:00 97.5 68 19 129/59 (82) 100 10/04/17 20:30 Nasal Cannula 2.00 10/04/17 20:00 81 10/04/17 20:00 98.1 79 20 119/58 (78) 100 10/04/17 16:00 62 10/04/17 16:00 97.8 60 18 107/55 (72) 100 10/04/17 15:46 Nasal Cannula 2.00 10/04/17 12:35 63 10/04/17 12:00 97.3 69 18 106/58 (74) 100 I/O 10/04/17 10/04/17 10/04/17 10/05/17 10/05/17 10/05/17 07:00 15:00 23:00 07:00 15:00 23:00 Intake Total 120 ml 480 ml 0 ml Balance 120 ml 480 ml 0 ml Intake Oral 120 ml 480 ml 0 ml # Voids 2 4 2 # Bowel Movements 0 2 3 (Sylvester Valentin MD R3) Result Diagram: 10/02/17 0530 10/04/17 1108 Imaging Last Impressions Chest X-Ray 10/03/17 0000 Signed Impressions: CONCLUSION: Negative examination. Abdomen CT 09/28/17 0000 Signed Impressions: CONCLUSION: 1. Subcapsular hyperechoic lesion seen on ultrasound is not clearly seen on CT . This may be better evaluated on MRI. Statistically lesion is most likely sarita gn given circumscribed nature and increased echogenicity which can be seen with hemangioma or focal fat. Abdomen Ultrasound 09/24/17 0000 Signed Impressions: CONCLUSION: 1. 1.8 cm hypoechoic subcapsular mass in the right lobe of the liver. This may represent focal fatty infiltration. However, differential considerations inclu de hemangioma and malignancy. Further characterization may be performed with MR I exam on an outpatient basis as clinically warranted. 2. Slightly prominent common bile duct and pancreatic duct without focal abnor mality. This is nonspecific although a partial ampullary obstruction cannot be entirely excluded. 3. Gallbladder polyps versus adherent stones. No sonographic evidence for chol ecystitis. 4. Trace ascites and small bilateral pleural effusions. Objective Remarks GENERAL: NAD SKIN: No visible rashes. Sacral ulcer not visualized today EYES: EOM grossly I. ENT: MMM CARDIOVASCULAR: Regular rate and rhythm; no murmurs to auscultation. No significant LE edema. RESPIRATORY: O2 99% on 2L O2 via NC. CTAB; decreased breath sounds. GASTROINTESTINAL: Abdomen soft, non-distended, non-tender. MUSCULOSKELETAL: Extremities without edema. grossly normal motor function and ROM NEUROLOGICAL: Awake and alert. Cranial nerves grossly intact. Grossly normal peripheral motor and sensory function (Sylvester Valentin MD R3) A/P Assessment and Plan 72 yo F with PMH of HTN, CHF, COPD, DM, AFib, CAD presenting with: Discharge Planning Anticipate discharge to SNF today (Sylvester Valentin MD R3) Attending Attestation Patient examined independently and case discussed with resident physician I have read the above note and agree with the assessment/plan as discussed with me I was involved in all medical decision making for this patient Ever Roman MD (Ever Roman MD) Problem List: (1) CHF (congestive heart failure) ICD Codes: I50.9 - Heart failure, unspecified Status: Acute Plan: 10/04: No concern for pulmonary vascular congestion or LE edema at this time. Net output ? overnight. Weight gain of 1 kg. Ventricular tachycardia x7 beats overnight. Per Cardiology review- 7 beats Vtach at ~130AM, 8 beats 6/2 at ~1620, several other brief periods of v tach 10/02- 10/04. Mg 2.1. Cr 1.78 10/05: No concerns for CHF symptoms. Urine output? 1.9kg weight gain overnight Impression: Symptomatically improved Initially presented with respiratory failure, pulmonary edema on CXR. Ventricular tachycardic episodes nonsustained, asymptomatic Echo 08/11/17 with EF 45-50%, low-normal to mild systolic dysfunction BNP in 600s on admission. Per Cardiology; possibly precipitated by uncontrolled HR -Continue Lasix 20 mg PO daily - Cardiology following, appreciate recs - Continue home BB - Continue enalapril 5 mg BID -Continue KCl 20 meq daily to keep above 4 -Due to EF 45-50%, AICD not needed currently (2) Atrial fibrillation with RVR ICD Codes: I48.91 - Unspecified atrial fibrillation Status: Resolved Plan: Impression: Presented with AFib in RVR, HR now at goal. ACS rule-out negative - Cardiology consulted, appreciate recs -Reduce Diltiazem to 240mg daily -Metoprolol 50mg BID - Anticoagulation with Eliquis - Continue telemetry (3) Clostridium difficile colitis ICD Codes: A04.72 - Enterocolitis due to Clostridium difficile, not specified as recurrent Status: Acute Plan: Impression: Previously diagnosed as a c diff carrier; patient currently with greenish diarrhea x5 episodes overnight. Baseline Cr >1.5. -Will check CBC to assess disease severity. -Will start oral vancomycin 125mg QID x10 days (4) Respiratory failure ICD Codes: J96.90 - Respiratory failure, unspecified, unspecified whether with hypoxia or hypercapnia Status: Resolved Plan: 10/04: Continued pleuritic pain on inspiration. Some shortness of breath with inspiration and sputum production. O2 sats ~100% on home O2 via NC. 10/05: No change in symptoms; patient reassured. O2 saturations 99-100% on 2L ( home) O2 Impression: Patient intubated 09/24 after failing CPAP in ED and having desaturations <70%. ABG on admission with pH 7.25. Patient improved and was subsequently extubated. Likely due to RVR in patient with significant CAD versus pulmonary edema / CHF based on initial CXR and BNP in the 600s CXR 10/03- Negative examination - Manage comorbid conditions as below -Patient reassured that pleuritic vs MSK pain is likely of no significance at this time since chronic, no concern for pleuritic disease or intercostal injury. Patient agrees to let us know if pain changes or increases (5) CAD (coronary artery disease) ICD Codes: I25.10 - Atherosclerotic heart disease of [place] coronary artery without angina pectoris Status: Chronic Plan: Impression: CAD; no recent angina symptoms. ACS rule-out negative on admission - Cardiology consulted, assistance appreciated -Continue Brilinta -Continue statin -Continue Enalapril -Continue Metoprolol -Management of Atrial fibrillation and CHF as above (6) Abnormal findings on diagnostic imaging of abdomen ICD Codes: R93.5 - Abnormal findings on diagnostic imaging of other abdominal regions, including retroperitoneum Status: Acute Plan: Impression: Mild LFT elevations and concern for maroon colored stools on admission US Abdomen 09/24- 1.8 cm hypoechoic subcapsular mass in the right lobe of the liver. This may represent focal fatty infiltration. However, differential considerations include hemangioma and malignancy. Further characterization may be performed with MRI exam on an outpatient basis as clinically warranted. Slightly prominent common bile duct and pancreatic duct without focal abnormality. This is nonspecific although a partial ampullary obstruction cannot be entirely excluded. Gallbladder polyps versus adherent stones. No sonographic evidence for cholecystitis. Labs: LFT's: 09/24 (AST 50, ALT 63, ALKP 136) -> 09/25 (AST 50, ALT 63, ALKP 136) - likely elevated transiently from CHF CA-125 slightly elevated CEA, AFP, CA 19-9 normal -GI consulted - EGD performed patient found to have duodenal polyp, esophagitis, and erythematous gastric mucosa; biopsy pending -CT abdomen w/o contrast 09/28- subcapsular hyperechoic lesion on US not clearly seen. Likely benign -Continue PPI -Monitor H/H -F/U EGD in 1 year; will sign off -Patient will f/u as outpatient with GI for biopsy results (7) COPD (chronic obstructive pulmonary disease) ICD Codes: J44.9 - Chronic obstructive pulmonary disease, unspecified Status: Chronic Plan: Possibly contributed to respiratory failure, though clinical picture more likely CHF Sputum culture with light growth normal respiratory aurora CXR 10/03 unremarkable - Continue DuoNeb Q6H scheduled, Q6H PRN - Continue home Symbicort -Chronic home O2 as needed (8) Stage 1 skin ulcer of sacral region ICD Codes: L98.429 - Non-pressure chronic ulcer of back with unspecified severity Status: Acute Plan: Exam shows stage 1 ulcer with no skin breakdown - Ulcer prevention protocol - Consider routine wound care consult if does not improve (9) Diabetes ICD Codes: E11.9 - Type 2 diabetes mellitus without complications Plan: On metformin at home, in good control - Hold metformin - Accu-cheks, low novolog scale - hypoglycemia protocol - glucose goal 140-180 (10) Hypertension ICD Codes: I10 - Essential (primary) hypertension Status: Chronic Plan: Impression: Recently normotenstive - Continue beta rob, ACEi, diltiazem - Vasotec PRN BP > 200/100 (11) Chronic kidney disease (CKD) ICD Codes: N18.9 - Chronic kidney disease, unspecified Status: Chronic Plan: Impression: Mild CKD chronically; Baseline creatinine 1.6 on review of outpatient record Cr: 1.19 09/27 -> 1.78 10/04 - Renally dose meds - Trend BMP (12) FEN/GI/PPx Plan: Fluids: Caution given CHF. PO only for now. Elecs: Monitor, replete PRN Nutrition: Diet heart healthy with 2 gm sodium restriction DVT: On Eliquis GI: Famotidine 20 mg daily (Sylvester Valentin MD R3) Problem Qualifiers (1) CHF (congestive heart failure): Qualified Codes: I50.23 - Acute on chronic systolic (congestive) heart failure (2) Respiratory failure: Qualified Codes: J96.01 - Acute respiratory failure with hypoxia (3) CAD (coronary artery disease): Qualified Codes: I25.10 - Atherosclerotic heart disease of [place] coronary artery without angina pectoris (4) COPD (chronic obstructive pulmonary disease): Qualified Codes: J44.9 - Chronic obstructive pulmonary disease, unspecified (5) Diabetes: Qualified Codes: E11.22 - Type 2 diabetes mellitus with diabetic chronic kidney disease; N18.3 - Chronic kidney disease, stage 3 (moderate) (6) Hypertension: Qualified Codes: I10 - Essential (primary) hypertension (7) Chronic kidney disease (CKD): Qualified Codes: N18.3 - Chronic kidney disease, stage 3 (moderate) Sylvester Valentin MD R3 Oct 05, 2017 08:52 Ever Roman MD Oct 05, 2017 14:43
[2017-10-05] MEDS ORDERED: KLOR20TA3 PO (08:54)
[2017-10-05] MEDS ORDERED: VANC125C3 PO (08:54)
[2017-10-05 08:55] LABS: BICARBONATE 24.9 MEQ/L (21.0-32.0); CALCIUM 8.8 MG/DL (8.5-10.1); CREATININE 1.6 MG/DL (0.50-1.00)
[2017-10-05] MEDS: ENALAPRIL MALEATE 5 MG TAB PO SCH (09:15)
[2017-10-05] MEDS: SODIUM CHLORIDE 0.9% FLUSH 10 ML FLUSH IV FLUSH SCH (09:15)
[2017-10-05] MEDS: VANCOMYCIN 500 MG VIAL (FOR ORAL USE ONLY) PO SCH ×2 (09:15→13:11)
[2017-10-05] MEDS: NYSTATIN SUSP 500,000 U/5 ML CUP SWISH-SPIT SCH ×2 (09:15→13:12)
[2017-10-05] MEDS: POTASSIUM CHLORIDE 10 MEQ CONTROLLED RELEASE TAB PO SCH (09:16)
[2017-10-05] MEDS: APIXABAN 5 MG TABLET PO SCH (09:16)
[2017-10-05] MEDS: DILTIAZEM-CD 240 MG CAP ER PO SCH (09:16)
[2017-10-05] MEDS: TICAGRELOR 90 MG TAB PO SCH (09:17)
[2017-10-05] MEDS: FUROSEMIDE 20 MG TAB PO SCH (09:17)
[2017-10-05] MEDS: ATORVASTATIN 40 MG TAB PO SCH (09:18)
[2017-10-05] MEDS: BUDESONIDE-FORMOTEROL 160/4.5 MCG INHALER INH SCH (09:18)
[2017-10-05] MEDS: FAMOTIDINE 20 MG TAB PO SCH (09:18)
[2017-10-05] MEDS: METOPROLOL TARTRATE 50 MG TAB PO SCH (09:18)
[2017-10-05 13:27] LABS: AUTOMATED NEUTROPHIL # 9.5 TH/MM3 (1.8-7.7); BASOPHIL % 0.3 % (0.0-2.0); EOSINOPHIL # 0.1 TH/MM3 (0-0.4); EOSINOPHIL % 1.2 % (0.0-4.0); HEMATOCRIT 33.9 % (35.0-46.0); HEMOGLOBIN 11.4 GM/DL (11.6-15.3); LYMPH % 6.9 % (9.0-44.0); LYMPHOCYTE # 0.8 TH/MM3 (1.0-4.8); MEAN CELL VOLUME 92.6 FL (80.0-100.0); MEAN CORPUSCULAR HGB CONC 33.5 % (32.0-36.0); MEAN PLATELET VOLUME 8.6 FL (7.0-11.0); MONO % 9.4 % (0.0-8.0); MONOCYTE # 1.1 TH/MM3 (0-0.9); NEUT % 82.2 % (16.0-70.0); PLATELET COUNT 292 TH/MM3 (150-450); RED BLOOD COUNT 3.66 MIL/MM3 (4.00-5.30); RED CELL DISTRIBUTION WIDTH 15.2 % (11.6-17.2); WHITE BLOOD COUNT 11.5 TH/MM3 (4.0-11.0)
[2017-10-05] MEDS ORDERED: NORC5TAB PO (17:26)
== END 2017-10-05 18:03 | DRG 208 ==
LOC: NEPE 02:08 → NEDA 04:07 → HIMN 06:20 → N04A 09-28 23:53
PROVIDERS: ADMIT Family Medicine; ATTEND Family Medicine
PROC: 5A1945Z Respiratory Ventilation, 24-96 Consecutive Hours (ICD-10-PCS; principal; 2017-09-24)
DX: J96.01 Acute respiratory failure with hypoxia (principal); I13.0 Hypertensive heart and chronic kidney disease with heart failure and stage 1 through stage 4 chronic kidney disease, or unspecified chronic kidney disease; I50.23 Acute on chronic systolic (congestive) heart failure; N18.3 Chronic kidney disease, stage 3 (moderate); I47.2 Ventricular tachycardia; L98.428 Non-pressure chronic ulcer of back with other specified severity; A04.72 Enterocolitis due to Clostridium difficile, not specified as recurrent; J44.9 Chronic obstructive pulmonary disease, unspecified; E11.22 Type 2 diabetes mellitus with diabetic chronic kidney disease; E11.51 Type 2 diabetes mellitus with diabetic peripheral angiopathy without gangrene; E11.622 Type 2 diabetes mellitus with other skin ulcer; I48.0 Paroxysmal atrial fibrillation; Z79.84 Long term (current) use of oral hypoglycemic drugs; I25.10 Atherosclerotic heart disease of native coronary artery without angina pectoris; Z95.1 Presence of aortocoronary bypass graft; Z95.5 Presence of coronary angioplasty implant and graft; I25.2 Old myocardial infarction; K21.0 Gastro-esophageal reflux disease with esophagitis; E78.5 Hyperlipidemia, unspecified; Z79.02 Long term (current) use of antithrombotics/antiplatelets; F17.210 Nicotine dependence, cigarettes, uncomplicated; E66.01 Morbid (severe) obesity due to excess calories; Z68.32 Body mass index [BMI] 32.0-32.9, adult; Z78.1 Physical restraint status; R41.0 Disorientation, unspecified; R16.0 Hepatomegaly, not elsewhere classified; D64.9 Anemia, unspecified; Z96.651 Presence of right artificial knee joint
CPT/HCPCS: 31500; 36600; 51702; 71045; 74150; 76700; 80048; 80053; 80074; 81001; 82105; 82378; 82550; 82805; 82948; 83690; 83735; 83880; 84100; 84484; 85018; 85025; 86301; 86304; 86850; 86900; 86901; 86920; 87070; 87086; 87205; 87493; 87641; 93005; 94002; 94003; 94150; 94640; 94664; 96365; 96366; 96367; C9113; J0696; J1815; J2250; J2270; J3010; Q9963

== ENCOUNTER 2017-11-05 23:11 | Inpatient (IN) ==
[2017-11-05] MEDS ORDERED: MethylPREDNISolone Sod Succinate Inj 125 MG/2 ML Vial IV.PUSH ONE (23:15)
[2017-11-05 23:37] LABS: ABG Base Excess -1.8 mmol/L (-2-2); ABG PCO2 41 mmHg (38-42); ABG PO2 82 mmHg (61-120)
--- NOTE | 2017-11-05 23:42 | XR ---
EXAM DATE: 11/05/2017 11:38 PM EDT AGE/SEX: 72 years / Female INDICATIONS: Chest pain. EVAC. CLINICAL DATA: This is the patient's initial encounter. Patient reports that signs and symptoms have been present for 1 day and indicates a pain score of Nonresponsive. MEDICAL/SURGICAL HISTORY: . Myocardial infarction. Chronic obstructive pulmonary disease . C ABG. Cardiac stent. COMPARISON: [facility] [place] S[place], 10/03/2017. . FINDINGS: Mild and fairly diffuse bilateral interstitial opacities have developed. Parenchymal opacities are mi ldly confluent at the left base. No large effusion. No pneumothorax. Heart size upper limits of normal. Median sternotomy and CABG changes are again noted. CONCLUSION: Mild diffuse bilateral interstitial opacities suggesting early/mild pulmonary edema. Potentially supe rimposed pneumonia the left base. These findings are all new. Electronically signed by: Jhony Cheung MD 11/05/2017 11:41 PM EDT
[2017-11-05 23:52] LABS: Baso # (Auto) 0.1 th/mm3 (0.0-0.2); Eos # (Auto) 0.4 th/mm3 (0.0-0.4); Eos % (Auto) 3.7 % (0.0-4.0); Hematocrit 35.2 % (35.0-46.0); Hemoglobin 11.1 gm/dL (11.6-15.3); Lymph # (Auto) 4.1 th/mm3 (1.0-4.8); Lymph % (Auto) 34.8 % (9.0-44.0); Mean Corpuscular HGB Conc 31.5 % (32.0-36.0); Mean Corpuscular Hemoglobin 29.7 pg (27.0-34.0); Mean Corpuscular Volume 94.3 fL (80.0-100.0); Mean Platelet Volume 9.6 fL (7.0-11.0); Mono # (Auto) 1.1 th/mm3 (0.0-0.9); Mono % (Auto) 8.8 % (0.0-8.0); Neut # (Auto) 6.1 th/mm3 (1.8-7.7); Neut % (Auto) 51.7 % (16.0-70.0); Platelet Count 291 th/mm3 (150-450); Red Blood Count 3.74 mil/mm3 (4.00-5.30); Red Cell Distribution Width 17.4 % (11.6-17.2); White Blood Count 11.9 th/mm3 (4.0-11.0)
--- NOTE | 2017-11-05 23:53 | ED ---
HPI General Chief Complaint: Shortness of Breath/Dyspnea Stated Complaint: Medical, Evac Time Seen by Provider: 11/05/17 23:15 Source: patient, EMS and old records reviewed Mode of arrival: EMS Limitations: physical limitation (On BiPAP with shortness of breath) History of Present Illness Patient 72 years old. EMS reports O2 sat in the 80s on scene. She was wheezing and had rails. Nitro was given and albuterol treatments were given. O2 sat increased to the 90s on BiPAP and route to the ER. History is limited due to shortness of breath however patient states no in response to questions about pain. MD Complaint: shortness of breath Onset (ago): hour(s) (Unknown) Context: recent illness (Recent hospital discharge) Severity: moderate Consistency/Duration: constant Relieving factors: bronchodilators and upright position Known history of: COPD and congestive heart failure Treatment prior to arrival: oxygen, NIPPV and nitroglycerin Related Data Home Medications Medication Instructions Recorded Confirmed Unable to Obtain Home Meds 11/06/17 11/06/17 Allergies Allergy/AdvReac Type Severity Reaction Status Date / Time No Known Allergies Allergy Unverified 11/05/17 23:24 Review of Systems ROS Unobtainable unobtainable due to mental condition PMFSH Medical History Medical History Afib (Acute) CHF (congestive heart failure) (Acute) COPD (chronic obstructive pulmonary disease) (Acute) Social History Social History Substance History: No History of Abuse Second Hand Smoke Exposure: Yes Smoking Status: Current every day smoker Tobacco Type: Cigarettes How Often Do You Have a Drink Containing Alcohol: Monthly or less Recent Travel in [facility] within the Last 8 Weeks: No Recent Out of Country Travel within the Last 8 Weeks: No Immunization History Tetanus Immunization: >5 Years Hx Influenza Vaccine This Season: Yes Exam Narrative Exam Narrative: GENERAL: 72-year-old female pleasant well-nourished well- developed moderate distress secondary to dyspnea SKIN: Focused skin assessment warm/dry. HEAD: Atraumatic. Normocephalic. EYES: Pupils equal and round. No scleral icterus. No injection or drainage. ENT: No nasal bleeding or discharge. Mucous membranes pink and moist. NECK: Trachea midline. No JVD. CARDIOVASCULAR: Tachycardia. Irregular. RESPIRATORY: Tachypnea. Wheezing is present bilaterally. GASTROINTESTINAL: Abdomen soft, non-tender, nondistended. Hepatic and splenic margins not palpable. MUSCULOSKELETAL: No obvious deformities. No clubbing. No cyanosis. No edema. NEUROLOGICAL: Patient is awake and alert. Patient moves all extremities. PSYCHIATRIC: Appropriate anxiety. Course Reevaluation(s) Reevaluation #1: AB.362/41/23 pO2 82 Reevaluation #2: Case d/w Dr Matos prior to admission Initial Documented Vital Signs Pulse Rate 126 H 11/05/17 23:15 Respiratory Rate 24 11/05/17 23:15 Blood Pressure 194/81 H 11/05/17 23:15 Pulse Oximetry 99 11/05/17 23:15 Last Documented Vital Signs Temperature 98.4 F 11/06/17 00:28 Pulse Rate 126 H 11/06/17 01:42 Respiratory Rate 20 11/06/17 01:42 Blood Pressure 145/87 H 11/06/17 01:42 Pulse Oximetry 98 11/06/17 02:21 Medical Decision Making MDM Narrative Medical decision making narrative: Renal insufficiency is stable The BNP is just over 1000 Troponin is undetectable EKG shows atrial fibrillation The patient was started on BiPAP. She has a pneumonia. Rocephin azithromycin started. 40 mg Lasix ordered. Patient reassessed prior to admission and at that point reported compliance with all of her medications. Lab Data Lab results reviewed: Yes I reviewed the patient's lab results. Result diagrams: 11/05/17 23:30 11/05/17 23:30 Lab Results 11/05/17 11/05/17 11/05/17 Range/Units 23:23 23:30 23:30 WBC 11.9 H (4.0-11.0) th/mm3 RBC 3.74 L (4.00-5.30) mil/mm3 Hgb 11.1 L (11.6-15.3) gm/dL Hct 35.2 (35.0-46.0) % MCV 94.3 (80.0-100.0) fL MCH 29.7 (27.0-34.0) pg MCHC 31.5 L (32.0-36.0) % RDW 17.4 H (11.6-17.2) % Plt Count 291 (150-450) th/mm3 MPV 9.6 (7.0-11.0) fL Neut % (Auto) 51.7 (16.0-70.0) % Lymph % (Auto) 34.8 (9.0-44.0) % Cottle % (Auto) 8.8 H (0.0-8.0) % Eos % (Auto) 3.7 (0.0-4.0) % Baso % (Auto) 1.0 (0.0-2.0) % Neut # (Auto) 6.1 (1.8-7.7) th/mm3 Lymph # (Auto) 4.1 (1.0-4.8) th/mm3 Cottle # (Auto) 1.1 H (0.0-0.9) th/mm3 Eos # (Auto) 0.4 (0.0-0.4) th/mm3 Baso # (Auto) 0.1 (0.0-0.2) th/mm3 WBC Differential . Differential Comment Auto diff final PT (9.8-11.6) sec INR Ratio APTT (24.3-30.1) sec Puncture Site Right radial Patient Temperature 98.6 O2 Saturation 93 (90-100) % ABG pH 7.36 L (7.380-7.420) ABG pCO2 41 (38-42) mmHg ABG pO2 82 (61-120) mmHg ABG HCO3 23 (22-26) mmol/L ABG O2 Content 13.9 (12.0-20.0) Vol % ABG Base Excess -1.8 (-2-2) mmol/L ABG Methemoglobin 0.6 (0-2) % Loco Test Present Hemoglobin 10.6 L (12.0-16.0) G/DL Carboxyhemoglobin 2.2 (0-4) % O2 Delivery Device Bipap Vent Setting 12ipap/5epap Inspired O2 30 % Critical Value No Sodium 140 (136-145) meq/L Potassium 4.3 (3.5-5.1) meq/L Chloride 107 (98-107) meq/L Carbon Dioxide 21.5 (21.0-32.0) meq/L Anion Gap 12 (5-15) meq/L BUN 27 H (7-18) mg/dL Creatinine 2.19 H (0.50-1.00) mg/dL Estimated GFR 22 L (>89) mL/min Random Glucose 185 H (74-106) mg/dL Calcium 8.9 (8.5-10.1) mg/dL Total Bilirubin 0.6 (0.2-1.0) mg/dL AST 39 H (15-37) U/L ALT 55 H (10-53) U/L Alkaline Phosphatase 160 H (45-117) U/L Troponin I Less than 0.02 L (0.02-0.05) ng/mL B-Natriuretic Peptide (0-100) pg/mL Total Protein 7.9 (6.4-8.2) g/dL Albumin 3.6 (3.4-5.0) g/dL 11/05/17 11/05/17 Range/Units 23:30 23:30 WBC (4.0-11.0) th/mm3 RBC (4.00-5.30) mil/mm3 Hgb (11.6-15.3) gm/dL Hct (35.0-46.0) % MCV (80.0-100.0) fL MCH (27.0-34.0) pg MCHC (32.0-36.0) % RDW (11.6-17.2) % Plt Count (150-450) th/mm3 MPV (7.0-11.0) fL Neut % (Auto) (16.0-70.0) % Lymph % (Auto) (9.0-44.0) % Cottle % (Auto) (0.0-8.0) % Eos % (Auto) (0.0-4.0) % Baso % (Auto) (0.0-2.0) % Neut # (Auto) (1.8-7.7) th/mm3 Lymph # (Auto) (1.0-4.8) th/mm3 Cottle # (Auto) (0.0-0.9) th/mm3 Eos # (Auto) (0.0-0.4) th/mm3 Baso # (Auto) (0.0-0.2) th/mm3 WBC Differential Differential Comment PT 12.1 H (9.8-11.6) sec INR 1.2 Ratio APTT 27.2 (24.3-30.1) sec Puncture Site Patient Temperature O2 Saturation (90-100) % ABG pH (7.380-7.420) ABG pCO2 (38-42) mmHg ABG pO2 (61-120) mmHg ABG HCO3 (22-26) mmol/L ABG O2 Content (12.0-20.0) Vol % ABG Base Excess (-2-2) mmol/L ABG Methemoglobin (0-2) % Loco Test Hemoglobin (12.0-16.0) G/DL Carboxyhemoglobin (0-4) % O2 Delivery Device Vent Setting Inspired O2 % Critical Value Sodium (136-145) meq/L Potassium (3.5-5.1) meq/L Chloride (98-107) meq/L Carbon Dioxide (21.0-32.0) meq/L Anion Gap (5-15) meq/L BUN (7-18) mg/dL Creatinine (0.50-1.00) mg/dL Estimated GFR (>89) mL/min Random Glucose (74-106) mg/dL Calcium (8.5-10.1) mg/dL Total Bilirubin (0.2-1.0) mg/dL AST (15-37) U/L ALT (10-53) U/L Alkaline Phosphatase (45-117) U/L Troponin I (0.02-0.05) ng/mL B-Natriuretic Peptide 1036 H (0-100) pg/mL Total Protein (6.4-8.2) g/dL Albumin (3.4-5.0) g/dL Imaging Data Radiologist's impression: ITS Impressions Chest X-Ray 11/05/17 23:15 CONCLUSION: Mild diffuse bilateral interstitial opacities suggesting early/mild pulmonary edema. Potentially superimposed pneumonia the left base. These findings are all new. ECG Data EKG Prior to Arrival: Yes Attestation: I personally reviewed and interpreted this ECG as follows: Discharge Plan Discharge Disposition Patient Disposition: 30 Still Patient Physicians Team ED Provider: Lonnie Miller Primary Care Provider: Dionne Metcalf Attending Provider: Gregg Matos Discharge Interventions Interventions: Vital Signs Last Done: 11/06/17 01:42 Status ED Status: Admitted Patient
[2017-11-06 00:05] LABS: Activated Partial Thrombo Time 27.2 sec (24.3-30.1); INR 1.2 Ratio; Prothrombin Time 12.1 sec (9.8-11.6)
[2017-11-06 00:13] LABS: Albumin 3.6 g/dL (3.4-5.0); Anion Gap 12 meq/L (5-15); Aspartate Aminotransferase 39 U/L (15-37); Blood Urea Nitrogen 27 mg/dL (7-18); Calcium 8.9 mg/dL (8.5-10.1); Carbon Dioxide 21.5 meq/L (21.0-32.0); Chloride 107 meq/L (98-107); Glomerular Filtration Rate 22 mL/min (>89); Glucose,Random 185 mg/dL (74-106); Potassium 4.3 meq/L (3.5-5.1); Sodium 140 meq/L (136-145)
[2017-11-06 00:14] LABS: Alanine Aminotransferase 55 U/L (10-53)
[2017-11-06 00:18] LABS: Alkaline Phosphatase 160 U/L (45-117); Total Protein 7.9 g/dL (6.4-8.2)
[2017-11-06] MEDS ORDERED: Nitroglycerin Drip Premix 50 MG/250 ML BOTTLE IV.CONT PRN (01:27)
[2017-11-06] MEDS ORDERED: Azithromycin Inj 500 MG in Sodium Chlor 0.9% Inj 250 ML IV.SIG STA (01:32)
[2017-11-06] MEDS ORDERED: SODIUM CHLOR 0.9% IV.CONT PRN (01:34)
[2017-11-06] MEDS ORDERED: Labetalol HCl Inj 100 MG/20 ML Vial IV.PUSH ONE (01:34)
[2017-11-06] MEDS ORDERED: LABETALOL IV.CONT PRN (01:34)
[2017-11-06] MEDS ORDERED: Acetaminophen 325 MG Tablet PO PRN (01:58)
[2017-11-06] MEDS ORDERED: Bisacodyl 10 MG Supp RECTAL PRN (01:58)
[2017-11-06] MEDS ORDERED: Temazepam 15 MG Capsule PO PRN (01:58)
[2017-11-06] MEDS ORDERED: hydrALAZINE HCl Inj 20 MG/ML Vial IV.PUSH PRN (02:16)
[2017-11-06] MEDS ORDERED: Heparin - SQ 10,000 UNITS/ML Vial SQ SCH (03:00)
--- NOTE | 2017-11-06 03:26 | P.HPCC ---
History of Present Illness Primary Care Physician: Dionne Metcalf MD History of Present Illness: 72 years old female with known history of CHF, COPD, and paroxysmal atrial fibrillation presents for evaluation of shortness of breath. On review of chart EMS reports O2 sat in the 80s on scene. She was wheezing and had rails. Nitro was given and albuterol treatments were given in the ambulance. O2 sat increased to the 90s on BiPAP en route to the ER. In the emergency department patient continues to be in moderate respiratory distress stress with some improvement on a facemask BiPAP. Inpatient Certification: I certify that the inpatient services were ordered in accordance with Medicare regulations governing the order. This includes certification that hospital inpatient services are reasonable and necessary and in the case of services not specified as inpatient-only under 42 CFR 419.22(n), that they are appropriately provided as inpatient services in accordance to with the 2-midnight benchmark under 43 CFR 412.3(e) Estimated Total Length of Stay (Days): 5 Plans for Post Hospital Care: Not yet determined Review of Systems Unable to obtain, patient on facemask BiPAP in respiratory distress PMFSH - History History Provided By: Patient - Medical History Medical History: Medical History (Last Updated 11/05/17 @ 23:21 by Amanda Roque) Afib CHF (congestive heart failure) COPD (chronic obstructive pulmonary disease) - Tobacco History Second Hand Smoke Exposure: Yes Tobacco Use In Past 30 Days: Yes Smoking Status: Current every day smoker Tobacco Type: Cigarettes - Alcohol History How Often Do You Have a Drink Containing Alcohol: Monthly or less - Substance Use History Substance History: No History of Abuse - Travel History Recent Travel in the [place] Within the Last 8 Weeks: No Recent Travel Out of the Country Within the Last 8 Weeks: No - Immunization History Tetanus Immunization: >5 Years Hx Influenza Vaccine This Season: Yes Medications and Allergies Active Medications: Active Medications Acetaminophen (Tylenol) 650 mg PO Q6H PRN PRN Reason: PAIN 1-10 AND/OR FEVER >101F Al Hydroxide/Mg Hydroxide (Milk Of Magnjamir Liq) 30 ml PO Q12H PRN PRN Reason: Mild Constipation Albuterol (Duoneb Neb (Prn)) 1 ampul NEB Q2HR NEB PRN PRN Reason: WHEEZING Bisacodyl (Dulcolax Supp) 10 mg RECTAL DAILY PRN PRN Reason: SEVERE CONSITIPATION Chlorhexidine Gluconate (Chlorhexidine 2% Cloth) 3 pack TOPICAL DAILY@0400 MELANIE Stop: 11/11/17 03:59 Chlorhexidine Gluconate (Chlorhexidine 2% Cloth) 3 pack TOPICAL DAILY@0400 PRN PRN Reason: Extra cloth needed Stop: 11/11/17 03:59 Famotidine (Pepcid Pf Inj) 20 mg IV.PUSH DAILY MELANIE Furosemide (Lasix Inj) 20 mg IV.PUSH Q6H MELANIE Stop: 11/06/17 21:01 Heparin Sodium (Porcine) (Heparin Inj) 5,000 units SQ Q8H MELANIE Hydralazine HCl (Apresoline Inj) 20 mg IV.PUSH Q4H PRN PRN Reason: SBP>160, DBP>90 Nitroglycerin/Dextrose (Nitroglycerin Drip Premix) 50 mg in 250 mls @ 0 mls/hr IV.CONT TITRATE PRN; Protocol PRN Reason: Per Protocol Labetalol HCl 500 mg/ Sodium (Chloride) 250 mls @ 60 mls/hr IV.CONT TITRATE PRN ; Protocol PRN Reason: Per Protocol Azithromycin 500 mg/ Sodium (Chloride) 250 mls @ 250 mls/hr IV.SIG Q24H MELANIE Ceftriaxone Sodium 1,000 mg/ (Sodium Chloride) 100 mls @ 200 mls/hr IV.SIG Q12H MELANIE Labetalol HCl (Trandate Inj) 10 mg IV.PUSH Q4H PRN PRN Reason: SBP>160, DBP>90 Lactulose (Lactulose Liq) 30 ml PO DAILY PRN PRN Reason: SEVERE CONSITIPATION Morphine Sulfate (Morphine Inj) 2 mg IV.PUSH Q2H PRN PRN Reason: PAIN SCALE 6 TO 10 Ondansetron HCl (Zofran Odt) 4 mg PO Q6H PRN PRN Reason: NAUSEA OR VOMITING Senna/Docusate Sodium (Neyda-Colace) 1 tab PO BID [facility] Sennosides (Senokot) 17.2 mg PO Q12H PRN PRN Reason: Moderate Constipation Sodium Chloride (Ns Flush) 2 ml IV.FLUSH BID [facility] Sodium Chloride (Ns Flush) 2 ml IV.FLUSH PRN PRN PRN Reason: FLUSH AFTER USING IV ACCESS Temazepam (Restoril) 15 mg PO HS PRN PRN Reason: INSOMNIA Allergies Allergy/AdvReac Type Severity Reaction Status Date / Time No Known Allergies Allergy Unverified 11/05/17 23:24 Home Medications Medication Instructions Recorded Confirmed Type Unable to Obtain Home Meds 11/06/17 11/06/17 History Results - Labs CBC & Chem 7: 11/05/17 23:30 11/05/17 23:30 Labs: Short CBC 11/05/17 Range/Units 23:30 WBC 11.9 H (4.0-11.0) th/mm3 Hgb 11.1 L (11.6-15.3) gm/dL Hct 35.2 (35.0-46.0) % Plt Count 291 (150-450) th/mm3 BMP 11/05/17 23:30 Sodium 140 Potassium 4.3 Chloride 107 Carbon Dioxide 21.5 BUN 27 H Creatinine 2.19 H Calcium 8.9 Cardiac Enzymes 11/05/17 Range/Units 23:30 Troponin I Less than 0.02 L (0.02-0.05) ng/mL Liver Function 11/05/17 Range/Units 23:30 Total Bilirubin 0.6 (0.2-1.0) mg/dL AST 39 H (15-37) U/L ALT 55 H (10-53) U/L Alkaline Phosphatase 160 H (45-117) U/L Albumin 3.6 (3.4-5.0) g/dL - Imaging Impressions Chest X-Ray 11/05/17 23:15 CONCLUSION: Mild diffuse bilateral interstitial opacities suggesting early/mild pulmonary edema. Potentially superimposed pneumonia the left base. These findings are all new. Exam Vital signs: Vital Signs 11/05/17 23:15 11/06/17 00:21 11/06/17 00:28 Temperature 98.4 F Pulse Rate 126 H 121 H Respiratory Rate 24 16 Blood Pressure 194/81 H 217/150 H Pulse Oximetry 100 98 11/06/17 01:42 11/06/17 01:55 11/06/17 02:21 Temperature Pulse Rate 126 H Respiratory Rate 20 Blood Pressure 145/87 H Pulse Oximetry 98 98 98 Intake & Output 11/05/17 11/05/17 11/06/17 06:59 18:59 06:59 Intake Total 100 / 100 Balance 100 / 100 Weight 72.575 kg Intake: IV 100 / 100 Rocephin Inj 2,000 MG In NS Inj 100 / 100 100 ML @ 200 mls/hr IV.SIG STAT STA Rx#:[id number] - Constitutional moderate distress - Routine HEENT Exam Head: Present: normocephalic, atraumatic Eye: Present: PERRL ENT: Present: mucous membranes moist - Routine Neck Exam Present: supple, full ROM. Absent: JVD, carotid bruit - Routine Respiratory Exam Present: patient mechanically ventilated - Routine Cardiovascular Exam Present: S1, S2, tachycardia. Absent: gallop, rubs - Routine Abdominal Exam Present: soft, normoactive bowel sounds. Absent: tenderness - Routine Extremities Exam Absent: cyanosis, clubbing, edema - Routine Skin Exam Present: intact - Routine Neurological Exam Present: moving all extremities Caprini VTE Risk Assessment Caprini VTE Risk Assessment: Moderate/High Risk (score >= 2) Caprini Risk Assessment Model: Point Value = 1 Point Value = 2 Point Value = 3 Point Value = 5 Age 41-60 Minor surgery BMI > 25 kg/m2 Swollen legs Varicose veins or History of unexplained or recurrent spontaneous Oral contraceptives or hormone replacement Sepsis (< 1 month) Serious lung disease, including pneumonia (< 1 month) Abnormal pulmonary function Acute myocardial infarction Congestive heart failure (< 1 month) History of inflammatory bowel disease Medical patient at bed rest Age 61-74 Arthroscopic surgery Major open surgery (> 45 min) Laparoscopic surgery (> 45 min) Malignancy Confined to bed (> 72 hours) Immobilizing plaster cast Central venous access Age >= 75 History of VTE Family history of VTE Factor V Leiden Prothrombin [id number] Lupus anticoagulant Anticardiolipin antibodies Elevated serum homocysteine Heparin-induced thrombocytopenia Other congenital or acquired thrombophilia Stroke (< 1 month) Elective arthroplasty Hip, pelvis, or leg fracture Acute spinal cord injury (< 1 month) Prophylaxis Regimen: Total Risk Factor Score Risk Level Prophylaxis Regimen 0-1 Low Early ambulation 2 Moderate Order ONE of the following: *Sequential Compression Device (SCD) *Heparin 5000 units SQ BID 3-4 Higher Order ONE of the following medications: *Heparin 5000 units SQ TID *Enoxaparin/Lovenox 40 mg SQ daily (WT < 150 kg, CrCl > 30 mL/min) *Enoxaparin/Lovenox 30 mg SQ daily (WT < 150 kg, CrCl > 10-29 mL/min) *Enoxaparin/Lovenox 30 mg SQ BID (WT < 150 kg, CrCl > 30 mL/min) AND/OR *Sequential Compression Device (SCD) 5 or more Highest Order ONE of the following medications: *Heparin 5000 units SQ TID (Preferred with Epidurals) *Enoxaparin/Lovenox 40 mg SQ daily (WT < 150 kg, CrCl > 30 mL/min) *Enoxaparin/Lovenox 30 mg SQ daily (WT < 150 kg, CrCl > 10-29 mL/min) *Enoxaparin/Lovenox 30 mg SQ BID (WT < 150 kg, CrCl > 30 mL/min) AND *Sequential Compression Device (SCD) Assessment and Plan - Assessment and Plan Plan: Respiratory failure -Acute on chronic exacerbation of congestive heart failure -Blood pressure control with labetalol and hydralazine as needed -Repeat 2D echo -Rule out acute coronary syndrome with series of troponins and EKGs -Telemetry -Gentle diuresis COPD -DuoNeb scheduled as needed -BiPAP as needed -Hold steroids Atrial fibrillation History of coronary artery disease -Metoprolol tartrate 50mg q12h -Eliquis 2.5mg BID -Plavix 75mg daily -Brilinta 90mg BID -Atorvastatin 40mg qhs Diabetes mellitus -Insulin sliding scale Acute on chronic kidney injury -Patient required gentle diuresis due to fluid overload and respiratory failure -Strict I's and O's -Monitor creatinine and electrolytes Pneumonia -Questionable infiltrates on CXR -Empiric antibiotics -Follow-up cultures and de-escalate or DC per sensitivity and results DVT GI prophylaxis -Teds SCDs -Eliquis -Pepcid Critical Care: The total critical care time was 35 minutes. Time to perform other separately billable procedures was not included in the critical care time.
[2017-11-06] MEDS ORDERED: Chlorhexidine Gluconate 2% 1 Pack (2 Cloths) TOPICAL PRN (04:00)
[2017-11-06] MEDS: Chlorhexidine Gluconate 2% 1 Pack (2 Cloths) TOPICAL SCH (04:45)
--- NOTE | 2017-11-06 07:39 | ECG ---
Date Performed: 11/05/2017 Time Performed: 23:18:39 PTAGE: 72 years EKG: ATRIAL FIBRILLATION WITH RAPID VENTRICULAR RESPONSE Nonspecific ST and T wave abnormalities ABNORMAL ECG Compared to prior electrocardiogram, rate has increased . NO PREVIOUS TRACING DOCTOR: Salo Fisher Interpretating Date/Time 11/06/2017 07:38:34
--- NOTE | 2017-11-06 07:43 | ECG ---
Date Performed: 11/06/2017 Time Performed: 07:25:24 PTAGE: 72 years EKG: ATRIAL FIBRILLATION WITH RAPID VENTRICULAR RESPONSE NONSPECIFIC ST & T-WAVE ABNORMALITY ABN ORMAL ECG Compared to prior electrocardiogram, Nonspecific ST and T wave abnormalities are less yfn [place] PREVIOUS TRACING : 11/05/2017 23.18 DOCTOR: Salo Fisher Interpretating Date/Time 11/06/2017 07:42:05
[2017-11-06] MEDS: Metoprolol Tartrate 25 MG Tablet PO SCH ×2 (08:53→21:07)
[2017-11-06] MEDS: Senna/Docusate Sodium 8.6/50 MG Tablet PO SCH ×2 (08:53→21:11)
[2017-11-06] MEDS: Famotidine PF Inj 20 MG/2 ML Vial IV.PUSH SCH (08:54)
--- NOTE | 2017-11-06 10:56 | US ---
EXAM DATE: 11/06/2017 10:50 AM EDT AGE/SEX: 72 years / Female INDICATIONS: Increased lab values. CLINICAL DATA: This is the patient's subsequent encounter. Patient reports that signs and symptoms h ave been present for 1 day and indicates a pain score of 0/10. MEDICAL/SURGICAL HISTORY: Hypercholesterolemia. Chronic obstructive pulmonary disease. Gastro esophageal reflux disease. Myocardial infraction. Hypertension. Diabetic. Ectopic . . Rig ht knee surgery. Bilateral foot surgery. Stents right and left leg. Aortic stent. Spinal fusion. Hyst erectomy. CABG. COMPARISON: [facility] [place], CT ABDOMEN W/O CONTRAST, 09/28/2017. . MEASUREMENTS: Liver:__ 15.8 cm. Common Bile Duct:___ 7mm. Right Kidney:___9.2 x 4.6 x 4.4 cm. Left Kidney:___10.1 x 4.6 x 5.1 cm. Spleen:___10.4 cm. FINDINGS: Liver: Normal echotexture without focal lesion or ductal dilatation. Portal Vein: Hepatopedal flow seen in portal vein. Common Duct: No intraluminal mass or stone visualized. Gallbladder: Multiple stones. Mild wall thickening diffusely. Pancreas: The visualized portions are within normal limits Right Kidney: Normal echotexture and cortical thickness. No mass or hydronephrosis. Left Kidney: Normal echotexture and cortical thickness. No mass or hydronephrosis. Ascites: Minimal Pleural Effusion: Bilateral Spleen: No focal lesion. Aorta: Previous aneurysm endograft repair IVC: Within normal limits Other: None. CONCLUSION: Gallstones. Mild gallbladder wall thickening. Electronically signed by: Jhony Hoffmann MD 11/06/2017 10:55 AM EDT
[2017-11-06 12:24] LABS: Baso % (Auto) 0.4 % (0.0-2.0); Eos % (Auto) 0.1 % (0.0-4.0); Hematocrit 35.1 % (35.0-46.0); Hemoglobin 11.1 gm/dL (11.6-15.3); Lymph # (Auto) 0.4 th/mm3 (1.0-4.8); Lymph % (Auto) 8.2 % (9.0-44.0); Mean Corpuscular HGB Conc 31.6 % (32.0-36.0); Mean Corpuscular Hemoglobin 30.1 pg (27.0-34.0); Mean Platelet Volume 9.4 fL (7.0-11.0); Mono # (Auto) 0.1 th/mm3 (0.0-0.9); Mono % (Auto) 1.2 % (0.0-8.0); Neut # (Auto) 4.2 th/mm3 (1.8-7.7); Neut % (Auto) 90.1 % (16.0-70.0); Platelet Count 200 th/mm3 (150-450); Red Blood Count 3.69 mil/mm3 (4.00-5.30); Red Cell Distribution Width 17.6 % (11.6-17.2); White Blood Count 4.7 th/mm3 (4.0-11.0)
[2017-11-06 12:52] LABS: Alanine Aminotransferase 45 U/L (10-53); Albumin 3.6 g/dL (3.4-5.0); Anion Gap 15 meq/L (5-15); Aspartate Aminotransferase 27 U/L (15-37); Blood Urea Nitrogen 26 mg/dL (7-18); Calcium 8.8 mg/dL (8.5-10.1); Carbon Dioxide 21.3 meq/L (21.0-32.0); Chloride 105 meq/L (98-107); Glomerular Filtration Rate 25 mL/min (>89); Glucose,Random 177 mg/dL (74-106); Potassium 3.8 meq/L (3.5-5.1); Sodium 141 meq/L (136-145)
[2017-11-06 12:54] LABS: Alkaline Phosphatase 147 U/L (45-117); Total Protein 7.8 g/dL (6.4-8.2)
[2017-11-06] MEDS: dilTIAZem 60 MG Tablet PO SCH ×3 (14:03→21:07)
[2017-11-06] MEDS: Labetalol HCl Inj 100 MG/20 ML Vial IV.PUSH PRN (16:11)
[2017-11-06] MEDS ORDERED: Dextrose 50% in Water 50 ML Vial IV.PUSH PRN (16:27)
--- NOTE | 2017-11-06 16:30 | P.HPFP ---
History of Present Illness Primary Care Physician: Priyank Freire MD, R3 Chief Complaint: Shortness of breath History of Present Illness: Patient is a 72-year-old female with history significant for CHF, COPD, A. fib, recent intubation in September 2017, and diabetes. She presented on 11/05 with progressive worsening shortness of breath. She is reportedly in the 80% saturation range upon EMS evaluation and required BiPAP in route to the ER and after arrival. She was wheezing at that time with evidence of fluid overload. She did receive nitroglycerin paste in the ED but denies any chest pain. She has received albuterol treatments and IV Lasix therapy since admission and feels 80% better at time of my evaluation. She feels the BiPAP did help with her symptoms significantly and is of note using 2 L nasal cannula oxygen at home at baseline. She denies any recent changes to her medications and notes that she has been taking them regularly. She does note that she had increased level of physical activity over the last week because she was feeling well; she cleaned up her whole house and did an afternoon of gardening the day before her symptom onset. On review of systems she denies fevers, chills, nausea, vomiting, chest pain, rash, wheezing. She notes her shortness of breath is improved. She has been feeling palpitations but notes this is normal for her. She has dry mouth and does use cough drops regularly and request these today. She denies abdominal pain, dysuria, black or bloody stools, and constipation. She denies musculoskeletal pain and notes she is able to walk with walker at home. She lives alone. She endorses some fluid overload in the lower extremities but nothing out of the ordinary. EMR is reviewed and patient is noted to have had a hospitalization September 24 - October 05 for respiratory failure and complicated CHF. She is noted to have been intubated during that hospitalization. She was discharged to [facility] where she stayed for 2 weeks and went home on 10/17. She did have family there until . None of them were sick she denies other sick contacts. She has not had any recent travel. Past Medical History Left Heart Cath (w/ 2 stents) August 2017 CAD s/p 3 vessel CABG 2004 AFib w/RVR CHF HTN HLD COPD with 2L O2 requirement DM CKD Past Surgical History Left heart cath August 2017 3 stents in lower extremity Dr. Gardiner; 2016 (Left and right legs, and abdominal aorta) Right knee replacement; 2014 Dr. Alexander Lumbar Spine L5-S1 repair (2 spacers and rods, some hardware removed during second surgery); 2013 Dr. Valdes Right and Left Cataracts; , Dr. Montoya Triple CABG 2004; Dr. Romano Total Hysterectomy 1974 Bilateral foot surgery in 1972 Esophageal surgery (stretched) Reported Medications Reported Meds & Active Scripts Active Oxygen tank (Oxygen) 1 Ea Tank Liter PA.CANULA CONTINUOUS Oxygen Concentrator Portable Gaseous 2 L/min via Nasal Cannula Continuous For 99 months Eliquis (Apixaban) 2.5 Mg Tab 2.5 Mg PO BID Diltiazem CD 24 HR 240 Mg Caper 240 Mg PO DAILY 30 Days Oxygen tank (Oxygen) 1 Ea Tank Liter PA.CANULA CONTINUOUS Oxygen Concentrator Portable Gaseous 2 L/min via Nasal Cannula Continuous For 99 months Isosorbide Mononitrate ER (Isosorbide Mononitrate) 30 Mg Sagar 30 Mg PO DAILY@ 07 30 Days [Albuterol-Ipratropium Neb] 1 AMPULE Nebu 1 Ampule NEB Q6HR NEB PRN 14 Days Lopressor (Metoprolol Tartrate) 50 Mg Tab 50 Mg PO Q12HR Brilinta (Ticagrelor) 90 Mg Tab 90 Mg PO BID Metformin (Metformin HCl) 500 Mg Tab 500 Mg PO DAILY With a meal Atorvastatin (Atorvastatin Calcium) 40 Mg Tab 40 Mg PO HS Reported Lyrica (Pregabalin) 150 Mg Cap 150 Mg PO DAILY Furosemide 20 Mg Tab 20 Mg PO DAILY Plavix (Clopidogrel Bisulfate) 75 Mg Tab 75 Mg PO DAILY Lisinopril 10 Mg Tab 10 Mg PO DAILY Hydrocodone-Acetaminophen 5-325 mg Tab 1 Tab PO Q6H PRN Advair Diskus Inh (Fluticasone-Salmeterol Inh) 250-50 Mcg/Blist Aer 1 Puff INH BID Rinse mouth after use. Ventolin Hfa 18 GM Inh (Albuterol Sulfate) 90 Mcg/Act Aer 2 Puff INH Q4H PRN Active Ordered Medications Family History Father - Diabetes Mellitus, passed at age of 69 y/o Mother - Ovarian cancer at the age 53 y/o 2 sisters - Good health 82 y/o, Nandini 76 y/o 3 children - healthy, son with HTN Social History Retired, lives alone and independent in activities of ADLs. Ambulates with walker at baseline. Current smoker: 1/2 pack per day (reported 07/29/17), prior smoking habit:1 ppd for past 55 years, Denies illicit drug use Rare EtOH use Son's contact info: Madhav Sosa [phone] - Diagnosis (1) Acute exacerbation of CHF (congestive heart failure) (2) Pneumonia (3) COPD (chronic obstructive pulmonary disease) (4) Atrial fibrillation (5) Diabetes mellitus type 2 with complications (6) CKD (chronic kidney disease) stage 3, GFR 30-59 ml/min (7) History of Clostridium difficile infection (8) Nutrition, metabolism, and development symptoms Inpatient Certification: I certify that the inpatient services were ordered in accordance with Medicare regulations governing the order. This includes certification that hospital inpatient services are reasonable and necessary and in the case of services not specified as inpatient-only under 42 CFR 419.22(n), that they are appropriately provided as inpatient services in accordance to with the 2-midnight benchmark under 43 CFR 412.3(e) Estimated Total Length of Stay (Days): 5 Plans for Post Hospital Care: Not yet determined Review of Systems All other systems reviewed negative except as stated in HPI [facility] - History History Provided By: Patient - Medical History Medical History: Medical History (Last Updated 11/05/17 @ 23:21 by Amanda Roque) Afib CHF (congestive heart failure) COPD (chronic obstructive pulmonary disease) - Tobacco History Second Hand Smoke Exposure: Yes Tobacco Use In Past 30 Days: Yes Smoking Status: Current every day smoker Tobacco Type: Cigarettes - Alcohol History How Often Do You Have a Drink Containing Alcohol: Monthly or less - Substance Use History Substance History: No History of Abuse - Travel History Recent Travel in the [place] Within the Last 8 Weeks: No Recent Travel Out of the Country Within the Last 8 Weeks: No - Immunization History Tetanus Immunization: Unsure Hx Influenza Vaccine This Season: Yes Medications and Allergies Active Medications: Active Medications Acetaminophen (Tylenol) 650 mg PO Q6H PRN PRN Reason: PAIN 1-10 AND/OR FEVER >101F Al Hydroxide/Mg Hydroxide (Milk Of Magnjamir Liq) 30 ml PO Q12H PRN PRN Reason: Mild Constipation Albuterol (Duoneb Neb (Prn)) 1 ampul NEB Q2HR NEB PRN PRN Reason: WHEEZING Albuterol (Duoneb Neb ([facility])) 1 ampul NEB Q4HR NEB [facility] Last Admin: 11/06/17 15:19 Dose: 1 ampul Apixaban (Eliquis) 5 mg PO BID [facility] Last Admin: 11/06/17 08:53 Dose: 5 mg Atorvastatin Calcium (Lipitor) 80 mg PO HS [facility] Bisacodyl (Dulcolax Supp) 10 mg RECTAL DAILY PRN PRN Reason: SEVERE CONSITIPATION Chlorhexidine Gluconate (Chlorhexidine 2% Cloth) 3 pack TOPICAL DAILY@0400 [facility] Stop: 11/11/17 03:59 Last Admin: 11/06/17 04:45 Dose: 3 pack Chlorhexidine Gluconate (Chlorhexidine 2% Cloth) 3 pack TOPICAL DAILY@0400 PRN PRN Reason: Extra cloth needed Stop: 11/11/17 03:59 Clopidogrel Bisulfate (Plavix) 75 mg PO DAILY [facility] Last Admin: 11/06/17 08:53 Dose: 75 mg Dextrose (D50w Vial) 50 ml IV.PUSH UNSCH PRN PRN Reason: PER HYPOGLYCEMIA PROTOCOL Diltiazem HCl (Cardizem) 60 mg PO QID [facility] Last Admin: 11/06/17 14:03 Dose: 60 mg Famotidine (Pepcid Pf Inj) 20 mg IV.PUSH DAILY [facility] Last Admin: 11/06/17 08:54 Dose: 20 mg Furosemide (Lasix Inj) 20 mg IV.PUSH Q6H [facility] Stop: 11/06/17 21:01 Last Admin: 11/06/17 14:03 Dose: 20 mg Glucagon (Glucagon Inj) 1 mg OTHER PRN PRN PRN Reason: for Hypoglycemia Protocol Hydralazine HCl (Apresoline Inj) 20 mg IV.PUSH Q4H PRN PRN Reason: SBP>160, DBP>90 Nitroglycerin/Dextrose (Nitroglycerin Drip Premix) 50 mg in 250 mls @ 0 mls/hr IV.CONT TITRATE PRN; Protocol PRN Reason: Per Protocol Labetalol HCl 500 mg/ Sodium (Chloride) 250 mls @ 60 mls/hr IV.CONT TITRATE PRN ; Protocol PRN Reason: Per Protocol Azithromycin 500 mg/ Sodium (Chloride) 250 mls @ 250 mls/hr IV.SIG Q24H [facility] Ceftriaxone Sodium 1,000 mg/ (Sodium Chloride) 100 mls @ 200 mls/hr IV.SIG Q12H [facility] Last Admin: 11/06/17 14:03 Dose: 200 mls/hr Insulin Aspart (Novolog Insulin Suppl Scale Inj) 0 unit SQ ACHS [facility]; Protocol Labetalol HCl (Trandate Inj) 10 mg IV.PUSH Q4H PRN PRN Reason: SBP>160, DBP>90 Last Admin: 11/06/17 16:11 Dose: 10 mg Lactulose (Lactulose Liq) 30 ml PO DAILY PRN PRN Reason: SEVERE CONSITIPATION Metoprolol Tartrate (Lopressor) 25 mg PO BID [facility] Last Admin: 11/06/17 08:53 Dose: 25 mg Morphine Sulfate (Morphine Inj) 2 mg IV.PUSH Q2H PRN PRN Reason: PAIN SCALE 6 TO 10 Ondansetron HCl (Zofran Odt) 4 mg PO Q6H PRN PRN Reason: NAUSEA OR VOMITING Senna/Docusate Sodium (Neyda-Colace) 1 tab PO BID [facility] Last Admin: 11/06/17 08:53 Dose: 1 tab Sennosides (Senokot) 17.2 mg PO Q12H PRN PRN Reason: Moderate Constipation Sodium Chloride (Ns Flush) 2 ml IV.FLUSH BID [facility] Last Admin: 11/06/17 08:54 Dose: 2 ml Sodium Chloride (Ns Flush) 2 ml IV.FLUSH PRN PRN PRN Reason: FLUSH AFTER USING IV ACCESS Temazepam (Restoril) 15 mg PO HS PRN PRN Reason: INSOMNIA Ticagrelor (Brilinta) 90 mg PO BID [facility] Last Admin: 11/06/17 08:56 Dose: 90 mg Allergies Allergy/AdvReac Type Severity Reaction Status Date / Time No Known Allergies Allergy Unverified 11/05/17 23:24 Home Medications Medication Instructions Recorded Confirmed Type Unable to Obtain Home Meds 11/06/17 11/06/17 History Exam Vital signs: Vital Signs 11/05/17 23:15 11/06/17 00:21 11/06/17 00:28 Temperature 98.4 F Pulse Rate 126 H 121 H Respiratory Rate 24 16 Blood Pressure 194/81 H 217/150 H Pulse Oximetry 100 98 11/06/17 01:42 11/06/17 01:55 11/06/17 02:21 Temperature Pulse Rate 126 H Respiratory Rate 20 Blood Pressure 145/87 H Pulse Oximetry 98 98 98 11/06/17 03:45 11/06/17 03:50 11/06/17 03:59 Temperature Pulse Rate 142 H Respiratory Rate 32 H Blood Pressure Pulse Oximetry 94 L 94 L 11/06/17 04:00 11/06/17 04:01 11/06/17 04:15 Temperature 97.5 F L Pulse Rate 150 H 147 H Respiratory Rate 17 23 Blood Pressure 126/94 H Pulse Oximetry 98 98 11/06/17 05:00 11/06/17 05:30 11/06/17 06:00 Temperature Pulse Rate 119 H 121 H 123 H Respiratory Rate 13 12 12 Blood Pressure 116/75 112/73 108/73 Pulse Oximetry 98 99 100 11/06/17 07:00 11/06/17 07:30 11/06/17 08:00 Temperature Pulse Rate 129 H 118 H 124 H Respiratory Rate 18 13 13 Blood Pressure 102/69 119/74 125/77 Pulse Oximetry 100 99 100 11/06/17 08:15 11/06/17 08:23 11/06/17 08:30 Temperature Pulse Rate 133 H 121 H 122 H Respiratory Rate 14 13 11 L Blood Pressure 118/80 129/75 Pulse Oximetry 100 99 100 11/06/17 09:00 11/06/17 09:45 11/06/17 10:00 Temperature Pulse Rate 120 H 135 H 125 H Respiratory Rate 12 25 H 14 Blood Pressure 137/91 H 113/83 114/77 Pulse Oximetry 98 98 100 11/06/17 10:55 11/06/17 11:00 11/06/17 12:00 Temperature Pulse Rate 108 H 127 H 128 H Respiratory Rate 20 21 22 Blood Pressure 107/64 Pulse Oximetry 100 98 11/06/17 12:01 11/06/17 13:00 11/06/17 14:00 Temperature Pulse Rate 134 H 113 H 134 H Respiratory Rate 21 25 H 21 Blood Pressure 118/75 128/89 122/93 H Pulse Oximetry 98 96 98 11/06/17 15:00 11/06/17 15:19 Temperature Pulse Rate 125 H 127 H Respiratory Rate 14 18 Blood Pressure 120/64 Pulse Oximetry 98 99 Intake & Output 11/05/17 11/06/17 11/06/17 18:59 06:59 18:59 Intake Total 350 / 350 Output Total 1000 / 1000 Balance -650 / -650 Weight 82.5 kg Intake: IV 350 / 350 Azithromycin Inj 500 MG In NS 250 / 250 Inj 250 ML @ 250 mls/hr IV.SIG STAT STA Rx#:[id number] Rocephin Inj 2,000 MG In NS Inj 100 / 100 100 ML @ 200 mls/hr IV.SIG STAT STA Rx#:[id number] Output: Urine 1000 / 1000 Other: # Voids 1 # Bowel Movements 0 Weight On Admission 84.5 kg Narrative: GENERAL: This is a well-nourished, well-developed patient in no apparent distress, on nasal cannula. SKIN: No rashes, ecchymoses or lesions. Cool and dry. HEAD: Atraumatic. Normocephalic. No temporal or scalp tenderness. EYES: Pupils equal round and reactive. Extraocular motions intact. No scleral icterus. No injection or drainage. ENT: Nose without drainage. Airway maintained by intubation. NECK: Trachea midline. No JVD or lymphadenopathy. Supple, nontender, no meningeal signs. CARDIOVASCULAR: Irregular rate and rhythm without murmurs, gallops, or rubs. Heart rate 110s-150s on monitor. BP wnl. LEs with 2+ pitting edema bilaterally. RESPIRATORY: Clear to auscultation with notably no wheezes. Breath sounds equal bilaterally. There are bibasilar crackles. GASTROINTESTINAL: Abdomen soft, non-tender, nondistended. No hepato-splenomegaly , or palpable masses. No guarding. Normal BS. MUSCULOSKELETAL: Extremities cool and dry without clubbing, cyanosis, or edema. No joint tenderness, effusion, or edema noted. Right knee surgical scar well healed. No calf tenderness or erythema. NEUROLOGICAL: Awake and alert. No obvious cranial nerve deficits. Motor grossly within normal limits. Five out of 5 muscle strength in the arms and legs. Normal speech. PSYCHIATRIC: Appropriate mood and affect; insight and judgment normal. Results - Labs Result diagrams: 11/06/17 11:21 11/06/17 11:21 Abnormal lab results 11/05/17 11/05/17 11/05/17 Range/Units 23:23 23:30 23:30 WBC 11.9 H (4.0-11.0) th/mm3 RBC 3.74 L (4.00-5.30) mil/mm3 Hgb 11.1 L (11.6-15.3) gm/dL MCHC 31.5 L (32.0-36.0) % RDW 17.4 H (11.6-17.2) % Neut % (Auto) (16.0-70.0) % Lymph % (Auto) (9.0-44.0) % [place] % (Auto) 8.8 H (0.0-8.0) % Lymph # (Auto) (1.0-4.8) th/mm3 [place] # (Auto) 1.1 H (0.0-0.9) th/mm3 PT (9.8-11.6) sec ABG pH 7.36 L (7.380-7.420) Hemoglobin 10.6 L (12.0-16.0) G/DL BUN 27 H (7-18) mg/dL Creatinine 2.19 H (0.50-1.00) mg/dL Estimated GFR 22 L (>89) mL/min POC Glucose (68-110) mg/dl Random Glucose 185 H (74-106) mg/dL AST 39 H (15-37) U/L ALT 55 H (10-53) U/L Alkaline Phosphatase 160 H (45-117) U/L Troponin I Less than 0.02 L (0.02-0.05) ng/mL B-Natriuretic Peptide (0-100) pg/mL 11/05/17 11/05/17 11/06/17 Range/Units 23:30 23:30 04:30 WBC (4.0-11.0) th/mm3 RBC (4.00-5.30) mil/mm3 Hgb (11.6-15.3) gm/dL MCHC (32.0-36.0) % RDW (11.6-17.2) % Neut % (Auto) (16.0-70.0) % Lymph % (Auto) (9.0-44.0) % [place] % (Auto) (0.0-8.0) % Lymph # (Auto) (1.0-4.8) th/mm3 [place] # (Auto) (0.0-0.9) th/mm3 PT 12.1 H (9.8-11.6) sec ABG pH (7.380-7.420) Hemoglobin (12.0-16.0) G/DL BUN (7-18) mg/dL Creatinine (0.50-1.00) mg/dL Estimated GFR (>89) mL/min POC Glucose (68-110) mg/dl Random Glucose (74-106) mg/dL AST (15-37) U/L ALT (10-53) U/L Alkaline Phosphatase (45-117) U/L Troponin I Less than 0.02 L (0.02-0.05) ng/mL B-Natriuretic Peptide 1036 H (0-100) pg/mL 11/06/17 11/06/17 11/06/17 Range/Units 11:21 11:21 11:21 WBC (4.0-11.0) th/mm3 RBC 3.69 L (4.00-5.30) mil/mm3 Hgb 11.1 L (11.6-15.3) gm/dL MCHC 31.6 L (32.0-36.0) % RDW 17.6 H (11.6-17.2) % Neut % (Auto) 90.1 H (16.0-70.0) % Lymph % (Auto) 8.2 L (9.0-44.0) % [place] % (Auto) (0.0-8.0) % Lymph # (Auto) 0.4 L (1.0-4.8) th/mm3 [place] # (Auto) (0.0-0.9) th/mm3 PT (9.8-11.6) sec ABG pH (7.380-7.420) Hemoglobin (12.0-16.0) G/DL BUN 26 H (7-18) mg/dL Creatinine 1.94 H (0.50-1.00) mg/dL Estimated GFR 25 L (>89) mL/min POC Glucose (68-110) mg/dl Random Glucose 177 H (74-106) mg/dL AST (15-37) U/L ALT (10-53) U/L Alkaline Phosphatase 147 H (45-117) U/L Troponin I Less than 0.02 L (0.02-0.05) ng/mL B-Natriuretic Peptide (0-100) pg/mL 11/06/17 Range/Units 16:08 WBC (4.0-11.0) th/mm3 RBC (4.00-5.30) mil/mm3 Hgb (11.6-15.3) gm/dL MCHC (32.0-36.0) % RDW (11.6-17.2) % Neut % (Auto) (16.0-70.0) % Lymph % (Auto) (9.0-44.0) % [place] % (Auto) (0.0-8.0) % Lymph # (Auto) (1.0-4.8) th/mm3 [place] # (Auto) (0.0-0.9) th/mm3 PT (9.8-11.6) sec ABG pH (7.380-7.420) Hemoglobin (12.0-16.0) G/DL BUN (7-18) mg/dL Creatinine (0.50-1.00) mg/dL Estimated GFR (>89) mL/min POC Glucose 258 H (68-110) mg/dl Random Glucose (74-106) mg/dL AST (15-37) U/L ALT (10-53) U/L Alkaline Phosphatase (45-117) U/L Troponin I (0.02-0.05) ng/mL B-Natriuretic Peptide (0-100) pg/mL Short CBC 11/05/17 11/06/17 Range/Units 23:30 11:21 WBC 11.9 H 4.7 D (4.0-11.0) th/mm3 Hgb 11.1 L 11.1 L (11.6-15.3) gm/dL Hct 35.2 35.1 (35.0-46.0) % Plt Count 291 200 D (150-450) th/mm3 BMP 11/05/17 11/06/17 23:30 11:21 Sodium 140 141 Potassium 4.3 3.8 Chloride 107 105 Carbon Dioxide 21.5 21.3 BUN 27 H 26 H Creatinine 2.19 H 1.94 H Calcium 8.9 8.8 Cardiac Enzymes 11/05/17 11/06/17 11/06/17 Range/Units 23:30 04:30 11:21 Troponin I Less than 0.02 L Less than 0.02 L Less than 0.02 L (0.02-0.05) ng/mL Liver Function 11/05/17 11/06/17 Range/Units 23:30 11:21 Total Bilirubin 0.6 0.6 (0.2-1.0) mg/dL AST 39 H 27 (15-37) U/L ALT 55 H 45 (10-53) U/L Alkaline Phosphatase 160 H 147 H (45-117) U/L Albumin 3.6 3.6 (3.4-5.0) g/dL - Imaging Impressions Chest X-Ray 11/05/17 23:15 CONCLUSION: Mild diffuse bilateral interstitial opacities suggesting early/mild pulmonary edema. Potentially superimposed pneumonia the left base. These findings are all new. Abdomen Ultrasound 11/06/17 00:00 CONCLUSION: Gallstones. Mild gallbladder wall thickening. Caprini VTE Risk Assessment Caprini VTE Risk Assessment: Moderate/High Risk (score >= 2) Caprini Risk Assessment Model: Point Value = 1 Point Value = 2 Point Value = 3 Point Value = 5 Age 41-60 Minor surgery BMI > 25 kg/m2 Swollen legs Varicose veins or History of unexplained or recurrent spontaneous Oral contraceptives or hormone replacement Sepsis (< 1 month) Serious lung disease, including pneumonia (< 1 month) Abnormal pulmonary function Acute myocardial infarction Congestive heart failure (< 1 month) History of inflammatory bowel disease Medical patient at bed rest Age 61-74 Arthroscopic surgery Major open surgery (> 45 min) Laparoscopic surgery (> 45 min) Malignancy Confined to bed (> 72 hours) Immobilizing plaster cast Central venous access Age >= 75 History of VTE Family history of VTE Factor V Leiden Prothrombin [id number] Lupus anticoagulant Anticardiolipin antibodies Elevated serum homocysteine Heparin-induced thrombocytopenia Other congenital or acquired thrombophilia Stroke (< 1 month) Elective arthroplasty Hip, pelvis, or leg fracture Acute spinal cord injury (< 1 month) Prophylaxis Regimen: Total Risk Factor Score Risk Level Prophylaxis Regimen 0-1 Low Early ambulation 2 Moderate Order ONE of the following: *Sequential Compression Device (SCD) *Heparin 5000 units SQ BID 3-4 Higher Order ONE of the following medications: *Heparin 5000 units SQ TID *Enoxaparin/Lovenox 40 mg SQ daily (WT < 150 kg, CrCl > 30 mL/min) *Enoxaparin/Lovenox 30 mg SQ daily (WT < 150 kg, CrCl > 10-29 mL/min) *Enoxaparin/Lovenox 30 mg SQ BID (WT < 150 kg, CrCl > 30 mL/min) AND/OR *Sequential Compression Device (SCD) 5 or more Highest Order ONE of the following medications: *Heparin 5000 units SQ TID (Preferred with Epidurals) *Enoxaparin/Lovenox 40 mg SQ daily (WT < 150 kg, CrCl > 30 mL/min) *Enoxaparin/Lovenox 30 mg SQ daily (WT < 150 kg, CrCl > 10-29 mL/min) *Enoxaparin/Lovenox 30 mg SQ BID (WT < 150 kg, CrCl > 30 mL/min) AND *Sequential Compression Device (SCD) Assessment and Plan - Assessment (1) Acute exacerbation of CHF (congestive heart failure) Code(s): I50.9 - Heart failure, unspecified Status: Acute Plan: Patient with exacerbation of chronic congestive heart failure. She initially was in respiratory failure with BiPAP requirements and low lower oxygen levels. She improved significantly with BiPAP and is now on nasal cannula. * 2D echo pending * Patient had echo September 05, 2017 showing EF 35-40%, global ventricular dysfunction, large left atrium, severe mitral regurg, mild to moderate tricuspid regurg * Continue diuresis with Lasix 20 mg IV every 6 hours, monitor I's and O's closely, transition to p.o. Lasix once symptoms improve * Respiratory support as needed with BiPAP, nasal cannula, etc. * Patient has diuresed per EMR 0.5 cc/kg/h since arrival * Consider cardiology consult if indicated * Close blood pressure control with labetalol and hydralazine as needed if SBP greater than 180/DBP greater than 100, goal BP less than 150/90 * Will continue telemetry for now given A. fib * Of note, EKG showing A. fib with RVR, however troponin less than 0.02 3 (2) Pneumonia Code(s): J18.9 - Pneumonia, unspecified organism Status: Acute Plan: CXR 11/06 showing diffuse interstitial come opacities, possible pneumonia. Patient is coughing but nonproductive. If symptoms worsen would consider broader antibiotics given patient had relatively recent stay at [facility], however it is notable that patient has significantly improved with diuresis and respiratory support and is afebrile. White count is within normal limits on 11/06 and was only mildly elevated at 11.9. * Rocephin and Azithromycin /, to continue * Duo nebs as needed * Blood cultures are pending from admission (3) COPD (chronic obstructive pulmonary disease) Code(s): J44.9 - Chronic obstructive pulmonary disease, unspecified Status: Chronic Plan: COPD is chronic, stable, do not suspect COPD exacerbation at this time given significant symptomatic improvement without steroids. We will continue to hold steroids and monitor patient closely. Management for pneumonia as above (4) Atrial fibrillation Code(s): I48.91 - Unspecified atrial fibrillation Status: Chronic Plan: History of CAD, with A. fib plus RVR on admission. Her heart rate has ranged from 110s-150s today. She is asymptomatic. EKG showing A. fib with RVR and troponins within normal limits. Will continue patient's home medications: * Metoprolol 50 mg twice daily * Cardizem 60 mg p.o. 4 times daily * Eliquis 2.5 mg twice daily * Plavix 75 mg daily * Brilinta 90 mg twice daily * Atorvastatin 40 mg qhs * Patient to receive labetalol IV every 4 hours as needed for rate control with goal rate of 120, discussed with nurse. If patient becomes asymptomatic or heart rate sustains later than 150 would consider Cardizem or beta rob drip if needed (5) Diabetes mellitus type 2 with complications Code(s): E11.8 - Type 2 diabetes mellitus with unspecified complications Status: Chronic Plan: Chronic, patient has never been on insulin at home. Will initiate low-dose sliding scale and hold metformin. (6) CKD (chronic kidney disease) stage 3, GFR 30-59 ml/min Code(s): N18.3 - Chronic kidney disease, stage 3 (moderate) Status: Chronic Plan: Patient with chronic stage IIIIV CKD with current MARSHALL. Her baseline creatinine appears to be somewhere around 1.8. (7) History of Clostridium difficile infection Code(s): Z86.19 - Personal history of other infectious and parasitic diseases Status: Acute Plan: Patient was found to have C. difficile and was discharged on p.o. vancomycin during her last hospitalization. She had currently has fully formed stools. She will be placed on contact precautions and monitor closely. Will order probiotics at this time. (8) Nutrition, metabolism, and development symptoms Code(s): R63.8 - Other symptoms and signs concerning food and fluid intake Status: Acute Plan: Fluids: tolerating PO/gentle diuresis Electrolytes: monitor and replete as needed, reviewed Nutrition: Cardiac diet, will monitor blood sugars and transition to diabetic + heart healthy diet if needed DVT Prophylaxis: Early ambulation. Bilateral SCDs GI Prophylaxis: PPI PRN anti-HTN: Labetalol given tachycardia PRN for SBP > 160/ and/or DBP > 90 - Assessment and Plan 72-year-old female with medical history significant for COPD, atrial fibrillation, heart failure with reduced EF, and diabetes who presented with acute onset shortness of breath and admitted for management of CHF exacerbation and pneumonia. Discussed Condition With: Dr. Roman, attending Discharge Planning: Disposition: Anticipate patient to have a 5 day hospitalization with likely discharge to SNF versus home with home health. Case management consult. PT consulted. H&P: Quality - VTE Deep Vein Thrombosis/Pulmonary Embolism Present on Admission: No (1) Acute exacerbation of CHF (congestive heart failure) Qualifiers: Heart failure type: unspecified Qualified Code(s): I50.9 - Heart failure, unspecified (5) Diabetes mellitus type 2 with complications Qualifiers: Diabetes mellitus nursing home insulin use: without superintendent container terminal use Qualified Code (s): E11.8 - Type 2 diabetes mellitus with unspecified complications
[2017-11-06] MEDS: Insulin NovoLOG Aspart Correctional Sugar Inj SQ SCH ×2 (17:28→21:10)
[2017-11-06] MEDS ORDERED: Benzonatate 100 MG Capsule PO PRN (17:54)
[2017-11-07] MEDS: Chlorhexidine Gluconate 2% 1 Pack (2 Cloths) TOPICAL SCH (03:46)
[2017-11-07] MEDS: Azithromycin Inj 500 MG in Sodium Chlor 0.9% Inj 250 ML IV.SIG SCH (03:46)
[2017-11-07 04:32] LABS: Activated Partial Thrombo Time 27.1 sec (24.3-30.1); Baso % (Auto) 0.1 % (0.0-2.0); Hematocrit 29.8 % (35.0-46.0); Hemoglobin 9.7 gm/dL (11.6-15.3); INR 1.3 Ratio; Lymph # (Auto) 0.5 th/mm3 (1.0-4.8); Lymph % (Auto) 5.8 % (9.0-44.0); Mean Corpuscular HGB Conc 32.6 % (32.0-36.0); Mean Corpuscular Hemoglobin 30.1 pg (27.0-34.0); Mean Corpuscular Volume 92.3 fL (80.0-100.0); Mean Platelet Volume 9.3 fL (7.0-11.0); Mono # (Auto) 0.4 th/mm3 (0.0-0.9); Mono % (Auto) 5.2 % (0.0-8.0); Neut % (Auto) 88.9 % (16.0-70.0); Platelet Count 203 th/mm3 (150-450); Prothrombin Time 13.2 sec (9.8-11.6); Red Blood Count 3.22 mil/mm3 (4.00-5.30); White Blood Count 7.9 th/mm3 (4.0-11.0)
[2017-11-07 04:48] LABS: Alanine Aminotransferase 39 U/L (10-53); Albumin 3.3 g/dL (3.4-5.0); Alkaline Phosphatase 119 U/L (45-117); Anion Gap 12 meq/L (5-15); Aspartate Aminotransferase 21 U/L (15-37); Blood Urea Nitrogen 40 mg/dL (7-18); Calcium 8.8 mg/dL (8.5-10.1); Carbon Dioxide 23.7 meq/L (21.0-32.0); Chloride 104 meq/L (98-107); Glomerular Filtration Rate 24 mL/min (>89); Glucose,Random 149 mg/dL (74-106); Magnesium 2.1 mg/dL (1.5-2.5); Phosphorus 3.6 mg/dL (2.5-4.9); Potassium 3.5 meq/L (3.5-5.1); Sodium 140 meq/L (136-145); Total Protein 7.3 g/dL (6.4-8.2)
[2017-11-07] MEDS: Insulin NovoLOG Aspart Correctional Sugar Inj SQ SCH ×4 (08:39→20:14)
[2017-11-07] MEDS: dilTIAZem 60 MG Tablet PO SCH (08:40)
[2017-11-07] MEDS: Metoprolol Tartrate 25 MG Tablet PO SCH ×2 (08:41→20:12)
[2017-11-07] MEDS: Senna/Docusate Sodium 8.6/50 MG Tablet PO SCH ×2 (08:41→20:12)
[2017-11-07] MEDS: Famotidine PF Inj 20 MG/2 ML Vial IV.PUSH SCH (08:41)
--- NOTE | 2017-11-07 09:29 | P.PNFP ---
Subjective Interval history: Patient evaluated during morning rounds with resident physician and she states that she is doing much better. She feels that her breathing is back to baseline and has no complaints this morning. She would like to get up and take a shower and is asking if she could go home today. She denies any chest pain. She denies any significant shortness of breath or peripheral edema. She denies any nausea or vomiting. She denies any fevers or chills. She denies any diarrhea or loose bowel movements. Results - Labs Result diagrams: 11/07/17 03:33 11/07/17 03:33 Abnormal lab results 11/06/17 11/06/17 11/06/17 Range/Units 11:21 11:21 11:21 RBC 3.69 L (4.00-5.30) mil/mm3 Hgb 11.1 L (11.6-15.3) gm/dL Hct (35.0-46.0) % MCHC 31.6 L (32.0-36.0) % RDW 17.6 H (11.6-17.2) % Neut % (Auto) 90.1 H (16.0-70.0) % Lymph % (Auto) 8.2 L (9.0-44.0) % Lymph # (Auto) 0.4 L (1.0-4.8) th/mm3 PT (9.8-11.6) sec BUN 26 H (7-18) mg/dL Creatinine 1.94 H (0.50-1.00) mg/dL Estimated GFR 25 L (>89) mL/min POC Glucose (68-110) mg/dl Random Glucose 177 H (74-106) mg/dL Alkaline Phosphatase 147 H (45-117) U/L Troponin I Less than 0.02 L (0.02-0.05) ng/mL Albumin (3.4-5.0) g/dL 11/06/17 11/06/17 11/07/17 Range/Units 16:08 20:51 03:33 RBC 3.22 L (4.00-5.30) mil/mm3 Hgb 9.7 L (11.6-15.3) gm/dL Hct 29.8 L (35.0-46.0) % MCHC (32.0-36.0) % RDW (11.6-17.2) % Neut % (Auto) 88.9 H (16.0-70.0) % Lymph % (Auto) 5.8 L (9.0-44.0) % Lymph # (Auto) 0.5 L (1.0-4.8) th/mm3 PT (9.8-11.6) sec BUN (7-18) mg/dL Creatinine (0.50-1.00) mg/dL Estimated GFR (>89) mL/min POC Glucose 258 H 183 H (68-110) mg/dl Random Glucose (74-106) mg/dL Alkaline Phosphatase (45-117) U/L Troponin I (0.02-0.05) ng/mL Albumin (3.4-5.0) g/dL 11/07/17 11/07/17 11/07/17 Range/Units 03:33 03:33 07:41 RBC (4.00-5.30) mil/mm3 Hgb (11.6-15.3) gm/dL Hct (35.0-46.0) % MCHC (32.0-36.0) % RDW (11.6-17.2) % Neut % (Auto) (16.0-70.0) % Lymph % (Auto) (9.0-44.0) % Lymph # (Auto) (1.0-4.8) th/mm3 PT 13.2 H (9.8-11.6) sec BUN 40 H (7-18) mg/dL Creatinine 2.02 H (0.50-1.00) mg/dL Estimated GFR 24 L (>89) mL/min POC Glucose 162 H (68-110) mg/dl Random Glucose 149 H (74-106) mg/dL Alkaline Phosphatase 119 H (45-117) U/L Troponin I (0.02-0.05) ng/mL Albumin 3.3 L (3.4-5.0) g/dL Short CBC 11/06/17 11/07/17 Range/Units 11:21 03:33 WBC 4.7 D 7.9 D (4.0-11.0) th/mm3 Hgb 11.1 L 9.7 L (11.6-15.3) gm/dL Hct 35.1 29.8 L (35.0-46.0) % Plt Count 200 D 203 (150-450) th/mm3 BMP 11/06/17 11/07/17 11:21 03:33 Sodium 141 140 Potassium 3.8 3.5 Chloride 105 104 Carbon Dioxide 21.3 23.7 BUN 26 H 40 H Creatinine 1.94 H 2.02 H Calcium 8.8 8.8 Cardiac Enzymes 11/06/17 Range/Units 11:21 Troponin I Less than 0.02 L (0.02-0.05) ng/mL Liver Function 11/06/17 11/07/17 Range/Units 11:21 03:33 Total Bilirubin 0.6 0.4 (0.2-1.0) mg/dL AST 27 21 (15-37) U/L ALT 45 39 (10-53) U/L Alkaline Phosphatase 147 H 119 H (45-117) U/L Albumin 3.6 3.3 L (3.4-5.0) g/dL - Imaging Impressions Abdomen Ultrasound 11/06/17 00:00 CONCLUSION: Gallstones. Mild gallbladder wall thickening. Physical Exam Vital signs: Vital Signs 11/06/17 09:45 11/06/17 10:00 11/06/17 10:55 Temperature Pulse Rate 135 H 125 H 108 H Respiratory Rate 25 H 14 20 Blood Pressure 113/83 114/77 Pulse Oximetry 98 100 11/06/17 11:00 11/06/17 12:00 11/06/17 12:01 Temperature Pulse Rate 127 H 128 H 134 H Respiratory Rate 21 22 21 Blood Pressure 107/64 118/75 Pulse Oximetry 100 98 98 11/06/17 13:00 11/06/17 14:00 11/06/17 15:00 Temperature Pulse Rate 113 H 134 H 125 H Respiratory Rate 25 H 21 14 Blood Pressure 128/89 122/93 H 120/64 Pulse Oximetry 96 98 98 11/06/17 15:19 11/06/17 16:00 11/06/17 16:15 Temperature Pulse Rate 127 H 124 H 130 H Respiratory Rate 18 29 H 31 H Blood Pressure 124/76 Pulse Oximetry 99 98 97 11/06/17 17:00 11/06/17 17:26 11/06/17 18:00 Temperature Pulse Rate 125 H 129 H 135 H Respiratory Rate 22 16 16 Blood Pressure 108/71 121/71 113/75 Pulse Oximetry 96 97 100 11/06/17 20:00 11/06/17 20:12 11/06/17 22:00 Temperature 97.8 F Pulse Rate 88 70 111 H Respiratory Rate 18 18 Blood Pressure 102/59 L Pulse Oximetry 98 100 11/06/17 23:51 11/07/17 00:00 11/07/17 02:00 Temperature 97.7 F Pulse Rate 86 103 H 105 H Respiratory Rate 14 15 Blood Pressure 103/71 Pulse Oximetry 99 11/07/17 04:00 11/07/17 06:00 11/07/17 07:35 Temperature 97.8 F Pulse Rate 119 H 106 H 100 H Respiratory Rate 13 20 Blood Pressure 116/67 Pulse Oximetry 98 99 Intake & Output 11/06/17 11/07/17 11/07/17 18:59 06:59 18:59 Intake Total 100 / 100 830 / 830 Output Total 2550 / 2550 800 / 800 Balance -2450 / -2450 30 / 30 Weight 83.5 kg Intake: IV 100 / 100 350 / 350 Azithromycin Inj 500 MG In NS 250 / 250 Inj 250 ML @ 250 mls/hr IV.SIG Q24H MELANIE Rx#:[id number] Rocephin Inj 1,000 MG In NS Inj 100 / 100 100 / 100 100 ML @ 200 mls/hr IV.SIG Q12H MELANIE Rx#:[id number] Oral 480 / 480 Output: Urine 2550 / 2550 800 / 800 Other: # Voids 3 Date of Last Bowel Movement 11/06/17 # Bowel Movements 3 1 - Additional findings Additional findings: GENERAL: Elderly female on 2 L nasal cannula, sitting comfortably in bed SKIN: No rashes, ecchymoses or lesions. Cool and dry. NECK: Trachea midline. No JVD or lymphadenopathy. CARDIOVASCULAR: Irregular rate and rhythm without murmurs, gallops, or rubs. Heart rate 110s-150s on monitor. No lower extremity edema noted RESPIRATORY: Clear to auscultation without audible crackles, wheezes, or rails. GASTROINTESTINAL: Abdomen soft, non-tender, nondistended. MUSCULOSKELETAL: Extremities cool and dry without clubbing, cyanosis, or edema. NEUROLOGICAL: Awake and alert. PSYCHIATRIC: Appropriate mood and affect; insight and judgment normal. Assessment and Plan - Assessment (1) Acute exacerbation of CHF (congestive heart failure) Code(s): I50.9 - Heart failure, unspecified Status: Acute Plan: Patient has been diuresing well and is approximately 3 L negative -Will transfer out of the [facility] today to medical floor Decrease diuretic to 40 mg p.o. twice daily -Has been receiving 40 mg IV twice daily Continue to monitor I's and O's and daily weights Continue fluid restriction and heart healthy, low-salt diet Continue supplemental oxygen as needed, patient is on 2 L nasal cannula at home BiPAP as needed for respiratory distress 2D echocardiogram reviewed from 09/2017 showing EF of 35-40% (2) Pneumonia Code(s): J18.9 - Pneumonia, unspecified organism Status: Acute Plan: CXR 11/06 showing diffuse interstitial come opacities, possible pneumonia. -Patient has been afebrile Continue antibiotics with Rocephin and azithromycin - Monitor pulse oximetry and supplemental oxygen as needed - Duo nebs as needed - Blood cultures are pending from admission (3) COPD (chronic obstructive pulmonary disease) Code(s): J44.9 - Chronic obstructive pulmonary disease, unspecified Status: Chronic Plan: COPD is chronic, stable, do not suspect COPD exacerbation at this time given significant symptomatic improvement without steroids. We will continue to hold steroids and monitor patient closely. Management for pneumonia as above (4) Atrial fibrillation Code(s): I48.91 - Unspecified atrial fibrillation Status: Chronic Plan: History of atrial fibrillation with fluctuating heart rates in the 100s-150s -Continue to monitor on telemetry -ACS rule out has been performed, troponins negative 3 -Increase Cardizem from 240 mg daily to 300 mg daily -Continue metoprolol 50 mg twice daily -Continue Brilinta and Eliquis (5) Diabetes mellitus type 2 with complications Code(s): E11.8 - Type 2 diabetes mellitus with unspecified complications Status: Chronic Plan: Chronic, patient has never been on insulin at home. Will initiate low-dose sliding scale and hold metformin. (6) CKD (chronic kidney disease) stage 3, GFR 30-59 ml/min Code(s): N18.3 - Chronic kidney disease, stage 3 (moderate) Status: Chronic Plan: Baseline creatinine around 1.8, creatinine is 2.2 today -Monitor with daily labs given diuresis - Avoid nephrotoxic agents outside of diuretic (7) History of Clostridium difficile infection Code(s): Z86.19 - Personal history of other infectious and parasitic diseases Status: Acute Plan: Patient with formed stools at this time, continue probiotics (8) Nutrition, metabolism, and development symptoms Code(s): R63.8 - Other symptoms and signs concerning food and fluid intake Status: Acute Plan: Fluids: tolerating PO/gentle diuresis Electrolytes: monitor and replete as needed, reviewed Nutrition: Cardiac diet, will monitor blood sugars and transition to diabetic + heart healthy diet if needed DVT Prophylaxis: Early ambulation. Bilateral SCDs GI Prophylaxis: PPI PRN anti-HTN: Labetalol given tachycardia PRN for SBP > 160/ and/or DBP > 90 - Assessment and Plan 72-year-old female with medical history significant for COPD, atrial fibrillation, heart failure with reduced EF, and diabetes who presented with acute onset shortness of breath and admitted for management of CHF exacerbation and pneumonia. (1) Acute exacerbation of CHF (congestive heart failure) Qualifiers: Heart failure type: unspecified Qualified Code(s): I50.9 - Heart failure, unspecified (5) Diabetes mellitus type 2 with complications Qualifiers: Diabetes mellitus snf insulin use: without ferry terminal agent use Qualified Code (s): E11.8 - Type 2 diabetes mellitus with unspecified complications
[2017-11-07] MEDS ORDERED: dilTIAZem CD 300 MG Capsule PO SCH (09:30)
[2017-11-07] MEDS ORDERED: Furosemide 40 MG Tablet PO SCH (09:30)
[2017-11-07] MEDS ORDERED: dilTIAZem CD 300 MG Capsule PO ONE (15:30)
[2017-11-08] MEDS: Azithromycin Inj 500 MG in Sodium Chlor 0.9% Inj 250 ML IV.SIG SCH (03:05)
[2017-11-08] MEDS: Morphine Inj 4 MG/ML Vial IV.PUSH PRN ×2 (03:37→11:09)
[2017-11-08] MEDS: Labetalol HCl Inj 100 MG/20 ML Vial IV.PUSH PRN (03:57)
--- NOTE | 2017-11-08 04:53 | P.PNADD ---
Addendum to Inpatient Note Reason for Addendum: Additional Documentation Additional information: Residents were paged at 3:57 regarding altered mental status. Patient had been restless throughout the night, complaining of shortness of breath, anxiety and exhaustion. She had been on and off BiPAP; BiPAP was recommended/placed by respiratory following lung exam despite oxygen saturation within normal limits. Patient was not tolerating mask or noise of BiPAP machine. Per nursing, BiPAP added to patient's anxiety. At 3:18, patient was given Restoril 15mg PO. Shortly after administration, patient became "zonked." Per nursing, patient was refusing to open her eyes and talked about being in [place], asking for an alcoholic beverage. At time of encounter, patient's mental status had returned to baseline per nursing and my prior encounters with patient. Patient was alert and oriented x3. Patient acknowledged that she had been "out of it" and attributed her mental change to the "anxiety pill." Patient complained of continued shortness of breath, which she said had not improved at all since admission. She denied cough. She was unsure whether breathing treatments had made a difference. She denied chest pain. She denied diaphoresis. Vitals: Afebrile, HR 127, RR 20, BP 122/84, 97% on 3L NC. GENERAL: Elderly female on 3 L nasal cannula, sitting in bed, in no distress, speaking in complete sentences. SKIN: Bruising on upper extremities. Cool and dry. HEAD: Atraumatic. Normocephalic. No temporal or scalp tenderness. NECK: Trachea midline. No JVD or lymphadenopathy. CARDIOVASCULAR: Irregular rate and rhythm without murmurs, gallops, or rubs. Heart rate 110s-150s on monitor. 1+ lower extremity edema noted. RESPIRATORY: No increased work of breathing. Diminished breath sounds in bases bilaterally with intermittent crackles. GASTROINTESTINAL: Abdomen soft, non-tender, nondistended. MUSCULOSKELETAL: Extremities cool and dry without clubbing, cyanosis. NEUROLOGICAL: Awake and alert. Oriented x3. Speech- Fluent. No dysarthria or dysphasia. Appropriate focus and comprehension. Cranial nerves- Intact. Motor/sensory/reflexes- Face- No facial droop. Symmetric smile. No tongue deviation. RUE- 5/5 strength in all musc groups, sensation intact. LUE- 5/5 strength in all musc groups, sensation intact. RLE- 5/5 strength in all musc groups, sensation intact. LLE- 5/5 strength in all musc groups, sensation intact. Patient ambulating in room without assistance per nursing staff. PSYCHIATRIC: Appropriate mood and affect; insight and judgment normal. 72-year-old female with medical history significant for COPD, atrial fibrillation, heart failure with reduced EF, and diabetes who presented with acute onset shortness of breath and admitted for management of CHF exacerbation and pneumonia. Altered mental status resolved at time of encounter. Shortness of breath persistent complaint. 1. Altered Mental Status. Resolved at time of encounter. Patient stable. No focal neurological deficits noted on exam. Low threshold for CT if patient becomes altered again. Likely secondary to Restoril administration. Restoril discontinued. 2. Shortness of Breath. Patient with continued shortness of breath. Oxygen saturation in upper 90s at time of encounter. Patient on 3L NC. Able to speak in complete sentences. Pulmonary exam suspicious for fluid overload. Ordered CXR, EKG, troponin. Ordered Lasix 20mg IV Once. Discussed with patient's nurse as well as charge nurse. Discussed with Dr. Chen.
[2017-11-08 05:47] LABS: Baso # (Auto) 0.1 th/mm3 (0.0-0.2); Baso % (Auto) 0.4 % (0.0-2.0); Eos # (Auto) 0.1 th/mm3 (0.0-0.4); Eos % (Auto) 0.6 % (0.0-4.0); Hematocrit 34.8 % (35.0-46.0); Hemoglobin 10.9 gm/dL (11.6-15.3); Lymph # (Auto) 1.3 th/mm3 (1.0-4.8); Lymph % (Auto) 9.5 % (9.0-44.0); Mean Corpuscular HGB Conc 31.4 % (32.0-36.0); Mean Corpuscular Hemoglobin 29.2 pg (27.0-34.0); Mean Corpuscular Volume 92.9 fL (80.0-100.0); Mean Platelet Volume 9.4 fL (7.0-11.0); Mono % (Auto) 7.9 % (0.0-8.0); Neut # (Auto) 10.8 th/mm3 (1.8-7.7); Neut % (Auto) 81.6 % (16.0-70.0); Platelet Count 287 th/mm3 (150-450); Red Blood Count 3.75 mil/mm3 (4.00-5.30); Red Cell Distribution Width 17.5 % (11.6-17.2); White Blood Count 13.3 th/mm3 (4.0-11.0)
[2017-11-08 06:10] LABS: Alanine Aminotransferase 44 U/L (10-53); Albumin 3.7 g/dL (3.4-5.0); Anion Gap 12 meq/L (5-15); Aspartate Aminotransferase 23 U/L (15-37); Blood Urea Nitrogen 42 mg/dL (7-18); Calcium 9.6 mg/dL (8.5-10.1); Carbon Dioxide 26.1 meq/L (21.0-32.0); Chloride 103 meq/L (98-107); Glomerular Filtration Rate 22 mL/min (>89); Glucose,Random 158 mg/dL (74-106); Potassium 3.6 meq/L (3.5-5.1); Sodium 141 meq/L (136-145)
[2017-11-08 06:14] LABS: Alkaline Phosphatase 133 U/L (45-117); Total Protein 7.9 g/dL (6.4-8.2)
[2017-11-08] MEDS: Chlorhexidine Gluconate 2% 1 Pack (2 Cloths) TOPICAL SCH (06:14)
--- NOTE | 2017-11-08 06:22 | XR ---
EXAM DATE: 11/08/2017 6:19 AM EDT AGE/SEX: 72 years / Female INDICATIONS: Shortness of breath. Chest pain. CLINICAL DATA: This is the patient's subsequent encounter. Patient reports that signs and symptoms h ave been present for 3 days and indicates a pain score of 6/10. MEDICAL/SURGICAL HISTORY: Congestive heart failure. Chronic obstructive pulmonary disease. Di abetes mellitus type II. A-fib. Coronary artery stent. CABG. Hysterectomy. COMPARISON: [facility] [place], CHEST 1V SINGLE AP, 11/05/2017. . FINDINGS: Single AP view of the chest. Median sternotomy wires are present. Increased bilateral lower lung zone confluent parenchymal opacity. Cardiac mediastinal silhouette unchanged. No evidence of pneumothorax . CONCLUSION: Increased bilateral lower lung zone opacity likely representing consolidation versus atelectasis. The change may also be somewhat technical as kyphotic positioning of the patient is noted. Electronically signed by: Brent Dodd MD 11/08/2017 6:21 AM EDT
[2017-11-08 07:20] LABS: ABG Base Excess 0.2 mmol/L (-2-2); ABG PCO2 33 mmHg (38-42); ABG PO2 69 mmHG (61-120)
--- NOTE | 2017-11-08 07:55 | P.PNFP ---
Subjective Interval history: Patient was moved from ICU to [facility] yesterday afternoon. Cardizem dose was given at 4pm (ordered in AM). Overnight residents were paged around 4am regarding AMS and which was intermittent and after Restoril was administered for anxiety. She complained of SOB at that time but saturations were normal. CXR and cardiac workup initiated with CXR showing worsening infiltrates, normal cardiac enzyme, EKG with afib + RVR. BiPap introduced on and off overnight and eventually refused by the patient due to claustrophobia. Patient was seen and examined at bedside. Around shift change this morning there was concern regarding patient given vomiting episode and looking unwell. Patient examined at bedside and complains of nonspecific unwell feeling and nausea. She denies abdominal pain, chest pain, and shortness of breath. She endorses confusion. <Kylah Carter - 11/08/17 07:55> Results - Labs Result diagrams: 11/08/17 05:23 11/08/17 05:23 <Ever Roman - 11/08/17 22:50> Abnormal lab results 11/08/17 11/08/17 11/08/17 Range/Units 05:23 05:23 05:23 WBC 13.3 H (4.0-11.0) th/mm3 RBC 3.75 L (4.00-5.30) mil/mm3 Hgb 10.9 L (11.6-15.3) gm/dL Hct 34.8 L (35.0-46.0) % MCHC 31.4 L (32.0-36.0) % RDW 17.5 H (11.6-17.2) % Neut % (Auto) 81.6 H (16.0-70.0) % Neut # (Auto) 10.8 H (1.8-7.7) th/mm3 [place] # (Auto) 1.0 H (0.0-0.9) th/mm3 ABG pH (7.380-7.420) ABG pCO2 (38-42) mmHg Hemoglobin (12.0-16.0) G/DL BUN 42 H (7-18) mg/dL Creatinine 2.15 H (0.50-1.00) mg/dL Estimated GFR 22 L (>89) mL/min POC Glucose (68-110) mg/dl Random Glucose 158 H (74-106) mg/dL Lactic Acid (0.4-2.0) mmol/L Alkaline Phosphatase 133 H (45-117) U/L Troponin I Less than 0.02 L (0.02-0.05) ng/mL B-Natriuretic Peptide 774 H (0-100) pg/mL Urine Protein (Neg-Trace) mg/dL Urine Occult Blood (Negative) Urine Mucus (Occasional) /lpf 11/08/17 11/08/17 11/08/17 Range/Units 07:04 07:54 08:36 WBC (4.0-11.0) th/mm3 RBC (4.00-5.30) mil/mm3 Hgb (11.6-15.3) gm/dL Hct (35.0-46.0) % MCHC (32.0-36.0) % RDW (11.6-17.2) % Neut % (Auto) (16.0-70.0) % Neut # (Auto) (1.8-7.7) th/mm3 [place] # (Auto) (0.0-0.9) th/mm3 ABG pH 7.47 H (7.380-7.420) ABG pCO2 33 L (38-42) mmHg Hemoglobin 10.9 L (12.0-16.0) G/DL BUN (7-18) mg/dL Creatinine (0.50-1.00) mg/dL Estimated GFR (>89) mL/min POC Glucose 141 H (68-110) mg/dl Random Glucose (74-106) mg/dL Lactic Acid 2.1 H (0.4-2.0) mmol/L Alkaline Phosphatase (45-117) U/L Troponin I (0.02-0.05) ng/mL B-Natriuretic Peptide (0-100) pg/mL Urine Protein (Neg-Trace) mg/dL Urine Occult Blood (Negative) Urine Mucus (Occasional) /lpf 11/08/17 11/08/17 11/08/17 Range/Units 12:01 17:28 18:43 WBC (4.0-11.0) th/mm3 RBC (4.00-5.30) mil/mm3 Hgb (11.6-15.3) gm/dL Hct (35.0-46.0) % MCHC (32.0-36.0) % RDW (11.6-17.2) % Neut % (Auto) (16.0-70.0) % Neut # (Auto) (1.8-7.7) th/mm3 [place] # (Auto) (0.0-0.9) th/mm3 ABG pH (7.380-7.420) ABG pCO2 (38-42) mmHg Hemoglobin (12.0-16.0) G/DL BUN (7-18) mg/dL Creatinine (0.50-1.00) mg/dL Estimated GFR (>89) mL/min POC Glucose 208 H 213 H (68-110) mg/dl Random Glucose (74-106) mg/dL Lactic Acid (0.4-2.0) mmol/L Alkaline Phosphatase (45-117) U/L Troponin I (0.02-0.05) ng/mL B-Natriuretic Peptide (0-100) pg/mL Urine Protein 30 H (Neg-Trace) mg/dL Urine Occult Blood Small H (Negative) Urine Mucus Few H (Occasional) /lpf 11/08/17 Range/Units 21:00 WBC (4.0-11.0) th/mm3 RBC (4.00-5.30) mil/mm3 Hgb (11.6-15.3) gm/dL Hct (35.0-46.0) % MCHC (32.0-36.0) % RDW (11.6-17.2) % Neut % (Auto) (16.0-70.0) % Neut # (Auto) (1.8-7.7) th/mm3 [place] # (Auto) (0.0-0.9) th/mm3 ABG pH (7.380-7.420) ABG pCO2 (38-42) mmHg Hemoglobin (12.0-16.0) G/DL BUN (7-18) mg/dL Creatinine (0.50-1.00) mg/dL Estimated GFR (>89) mL/min POC Glucose 175 H (68-110) mg/dl Random Glucose (74-106) mg/dL Lactic Acid (0.4-2.0) mmol/L Alkaline Phosphatase (45-117) U/L Troponin I (0.02-0.05) ng/mL B-Natriuretic Peptide (0-100) pg/mL Urine Protein (Neg-Trace) mg/dL Urine Occult Blood (Negative) Urine Mucus (Occasional) /lpf Short CBC 11/08/17 Range/Units 05:23 WBC 13.3 H (4.0-11.0) th/mm3 Hgb 10.9 L (11.6-15.3) gm/dL Hct 34.8 L (35.0-46.0) % Plt Count 287 D (150-450) th/mm3 BMP 11/08/17 05:23 Sodium 141 Potassium 3.6 Chloride 103 Carbon Dioxide 26.1 BUN 42 H Creatinine 2.15 H Calcium 9.6 D Cardiac Enzymes 11/08/17 Range/Units 05:23 Troponin I Less than 0.02 L (0.02-0.05) ng/mL Liver Function 11/08/17 Range/Units 05:23 Total Bilirubin 0.5 (0.2-1.0) mg/dL AST 23 (15-37) U/L ALT 44 (10-53) U/L Alkaline Phosphatase 133 H (45-117) U/L Albumin 3.7 (3.4-5.0) g/dL Urine 11/08/17 Range/Units 18:43 Urine Color Yellow (Yellw/Straw) Urine Clarity Clear (Clear) Urine pH 5.0 (5.0-8.5) Ur Specific [place] 1.011 (1.002-1.035) Urine Protein 30 H (Neg-Trace) mg/dL Urine Glucose (UA) 50 (Negative) mg/dL <Ever Roman - 11/08/17 22:50> Abnormal lab results 11/07/17 11/07/17 11/08/17 Range/Units 12:13 19:59 05:23 WBC 13.3 H (4.0-11.0) th/mm3 RBC 3.75 L (4.00-5.30) mil/mm3 Hgb 10.9 L (11.6-15.3) gm/dL Hct 34.8 L (35.0-46.0) % MCHC 31.4 L (32.0-36.0) % RDW 17.5 H (11.6-17.2) % Neut % (Auto) 81.6 H (16.0-70.0) % Neut # (Auto) 10.8 H (1.8-7.7) th/mm3 [place] # (Auto) 1.0 H (0.0-0.9) th/mm3 ABG pH (7.380-7.420) ABG pCO2 (38-42) mmHg Hemoglobin (12.0-16.0) G/DL BUN (7-18) mg/dL Creatinine (0.50-1.00) mg/dL Estimated GFR (>89) mL/min POC Glucose 156 H 138 H (68-110) mg/dl Random Glucose (74-106) mg/dL Alkaline Phosphatase (45-117) U/L Troponin I (0.02-0.05) ng/mL B-Natriuretic Peptide (0-100) pg/mL 11/08/17 11/08/17 11/08/17 Range/Units 05:23 05:23 07:04 WBC (4.0-11.0) th/mm3 RBC (4.00-5.30) mil/mm3 Hgb (11.6-15.3) gm/dL Hct (35.0-46.0) % MCHC (32.0-36.0) % RDW (11.6-17.2) % Neut % (Auto) (16.0-70.0) % Neut # (Auto) (1.8-7.7) th/mm3 [place] # (Auto) (0.0-0.9) th/mm3 ABG pH 7.47 H (7.380-7.420) ABG pCO2 33 L (38-42) mmHg Hemoglobin 10.9 L (12.0-16.0) G/DL BUN 42 H (7-18) mg/dL Creatinine 2.15 H (0.50-1.00) mg/dL Estimated GFR 22 L (>89) mL/min POC Glucose (68-110) mg/dl Random Glucose 158 H (74-106) mg/dL Alkaline Phosphatase 133 H (45-117) U/L Troponin I Less than 0.02 L (0.02-0.05) ng/mL B-Natriuretic Peptide 774 H (0-100) pg/mL Short CBC 11/08/17 Range/Units 05:23 WBC 13.3 H (4.0-11.0) th/mm3 Hgb 10.9 L (11.6-15.3) gm/dL Hct 34.8 L (35.0-46.0) % Plt Count 287 D (150-450) th/mm3 BMP 11/08/17 05:23 Sodium 141 Potassium 3.6 Chloride 103 Carbon Dioxide 26.1 BUN 42 H Creatinine 2.15 H Calcium 9.6 D Cardiac Enzymes 11/08/17 Range/Units 05:23 Troponin I Less than 0.02 L (0.02-0.05) ng/mL Liver Function 11/08/17 Range/Units 05:23 Total Bilirubin 0.5 (0.2-1.0) mg/dL AST 23 (15-37) U/L ALT 44 (10-53) U/L Alkaline Phosphatase 133 H (45-117) U/L Albumin 3.7 (3.4-5.0) g/dL <Kylah Carter - 11/08/17 07:55> - Imaging Impressions Chest X-Ray 11/08/17 05:26 CONCLUSION: Increased bilateral lower lung zone opacity likely representing consolidation versus atelectasis. The change may also be somewhat technical as kyphotic positioning of the patient is noted. <Ever Roman - 11/08/17 22:50> Impressions Chest X-Ray 11/08/17 05:26 CONCLUSION: Increased bilateral lower lung zone opacity likely representing consolidation versus atelectasis. The change may also be somewhat technical as kyphotic positioning of the patient is noted. <Kylah Carter - 11/08/17 07:55> Physical Exam Vital signs: Vital Signs 11/07/17 23:00 11/07/17 23:07 11/07/17 23:20 Temperature Pulse Rate 92 H 96 H Respiratory Rate 18 Blood Pressure Pulse Oximetry 99 11/08/17 00:00 11/08/17 00:35 11/08/17 01:00 Temperature 98.8 F Pulse Rate 99 H 98 H Respiratory Rate 20 Blood Pressure 139/78 Pulse Oximetry 100 99 11/08/17 02:00 11/08/17 02:50 11/08/17 03:00 Temperature Pulse Rate 121 H 108 H 123 H Respiratory Rate 18 Blood Pressure Pulse Oximetry 11/08/17 04:00 11/08/17 05:00 11/08/17 06:00 Temperature 98.8 F Pulse Rate 132 H 127 H 125 H Respiratory Rate 24 Blood Pressure 122/84 Pulse Oximetry 97 11/08/17 06:35 11/08/17 07:00 11/08/17 07:43 Temperature Pulse Rate 128 H 118 H Respiratory Rate 25 H Blood Pressure Pulse Oximetry 96 95 11/08/17 08:00 11/08/17 09:00 11/08/17 10:00 Temperature Pulse Rate 122 H 146 H 132 H Respiratory Rate Blood Pressure Pulse Oximetry 97 11/08/17 10:33 11/08/17 10:39 11/08/17 10:49 Temperature Pulse Rate 130 H 135 H 119 H Respiratory Rate 22 28 H 24 Blood Pressure 138/108 H 134/89 Pulse Oximetry 93 L 94 L 11/08/17 11:00 11/08/17 11:10 11/08/17 12:00 Temperature Pulse Rate 139 H 131 H 120 H Respiratory Rate 33 H Blood Pressure 142/104 H Pulse Oximetry 89 L 11/08/17 13:00 11/08/17 13:11 11/08/17 14:00 Temperature Pulse Rate 156 H 127 H Respiratory Rate 31 H Blood Pressure Pulse Oximetry 11/08/17 15:00 11/08/17 15:30 11/08/17 15:31 Temperature Pulse Rate 155 H 133 H Respiratory Rate 24 Blood Pressure Pulse Oximetry 93 L 11/08/17 16:00 11/08/17 17:00 11/08/17 19:00 Temperature 98 F Pulse Rate 138 H 126 H 112 H Respiratory Rate 30 H Blood Pressure 136/91 H Pulse Oximetry 99 11/08/17 20:00 Temperature 97 F L Pulse Rate 114 H Respiratory Rate 20 Blood Pressure 134/96 H Pulse Oximetry 100 Intake & Output 11/08/17 11/08/17 11/09/17 06:59 18:59 06:59 Intake Total 830 / 830 617.5 / 617.5 Balance 830 / 830 617.5 / 617.5 Intake: IV 350 / 350 617.5 / 617.5 Azithromycin Inj 500 MG In NS 250 / 250 Inj 250 ML @ 250 mls/hr IV.SIG Q24H MELANIE Rx#:[id number] Maxipime Inj 2,000 MG In NS Inj 100 / 100 100 ML @ 200 mls/hr IV.SIG Q12H MELANIE Rx#:[id number] Vancomycin Inj 1,750 MG In NS 517.5 / 517.5 Inj 500 ML @ 250 mls/hr IV.SIG ONCE ONE Rx#:[id number] Rocephin Inj 1,000 MG In NS Inj 100 / 100 100 ML @ 200 mls/hr IV.SIG Q12H MELANIE Rx#:[id number] Oral 480 / 480 Other: # Voids 1 Date of Last Bowel Movement 11/07/17 11/08/17 11/08/17 <Ever Roman - 11/08/17 22:50> Vital Signs 11/07/17 08:00 11/07/17 09:00 11/07/17 10:00 Temperature 98.3 F Pulse Rate 126 H 110 H 110 H Respiratory Rate 18 26 H 20 Blood Pressure 99/77 L 120/70 Pulse Oximetry 99 98 93 L 11/07/17 10:03 11/07/17 11:26 11/07/17 12:00 Temperature 98 F Pulse Rate 102 H 95 H 96 H Respiratory Rate 14 16 Blood Pressure 99/70 L 116/72 Pulse Oximetry 100 100 11/07/17 13:00 11/07/17 14:00 11/07/17 15:00 Temperature Pulse Rate 128 H 120 H 132 H Respiratory Rate Blood Pressure Pulse Oximetry 11/07/17 16:00 11/07/17 17:45 11/07/17 18:00 Temperature 98.2 F Pulse Rate 122 H 126 H 126 H Respiratory Rate 20 Blood Pressure 117/76 Pulse Oximetry 99 11/07/17 19:20 11/07/17 19:44 11/07/17 20:00 Temperature 98.4 F Pulse Rate 98 H 116 H 122 H Respiratory Rate 18 20 Blood Pressure 123/84 Pulse Oximetry 98 11/07/17 20:30 11/07/17 21:45 11/07/17 22:00 Temperature Pulse Rate 105 H 93 H 104 H Respiratory Rate Blood Pressure Pulse Oximetry 11/07/17 23:00 11/07/17 23:07 11/07/17 23:20 Temperature Pulse Rate 92 H 96 H Respiratory Rate 18 Blood Pressure Pulse Oximetry 99 11/08/17 00:00 11/08/17 00:35 11/08/17 01:00 Temperature 98.8 F Pulse Rate 99 H 98 H Respiratory Rate 20 Blood Pressure 139/78 Pulse Oximetry 100 99 11/08/17 02:00 11/08/17 02:50 11/08/17 03:00 Temperature Pulse Rate 121 H 108 H 123 H Respiratory Rate 18 Blood Pressure Pulse Oximetry 11/08/17 04:00 11/08/17 05:00 11/08/17 06:00 Temperature 98.8 F Pulse Rate 132 H 127 H 125 H Respiratory Rate 24 Blood Pressure 122/84 Pulse Oximetry 97 11/08/17 06:35 11/08/17 07:43 Temperature Pulse Rate 118 H Respiratory Rate 25 H Blood Pressure Pulse Oximetry 96 95 Intake & Output 11/07/17 11/08/17 11/08/17 18:59 06:59 18:59 Intake Total 1080 / 1080 830 / 830 Output Total 600 / 600 Balance 480 / 480 830 / 830 Intake: IV 100 / 100 350 / 350 Azithromycin Inj 500 MG In NS 250 / 250 Inj 250 ML @ 250 mls/hr IV.SIG Q24H MELANIE Rx#:[id number] Rocephin Inj 1,000 MG In NS Inj 100 / 100 100 / 100 100 ML @ 200 mls/hr IV.SIG Q12H MELANIE Rx#:[id number] Oral 980 / 980 480 / 480 Output: Urine 600 / 600 Other: # Voids 1 Date of Last Bowel Movement 11/07/17 11/07/17 # Bowel Movements 1 <Kylah Carter - 11/08/17 07:55> Narrative: GENERAL: Elderly female on 4L nasal cannula satting 99%. She is sitting up in bed. She is speaking complete sentences but looks tired. SKIN: Bruising on upper extremities. Cool and dry. HEAD: Atraumatic. Normocephalic. No temporal or scalp tenderness. NECK: Trachea midline. No JVD or lymphadenopathy. CARDIOVASCULAR: Irregular rate and rhythm without murmurs, gallops, or rubs. Heart rate 120s-140s on monitor. 1+ lower extremity edema noted. RESPIRATORY: No increased work of breathing. Reduced air movement and breath sounds diminished bilaterally with bilateral intermittent crackles especially at lung bases. GASTROINTESTINAL: Abdomen soft, non-tender, nondistended. Normal bowel sounds. MUSCULOSKELETAL: Extremities cool and dry without clubbing, cyanosis. PSYCHIATRIC: Appropriate mood and affect; insight and judgment normal. <Kylah Carter - 11/08/17 10:19> Assessment and Plan - Assessment (1) Altered mental status, unspecified Code(s): R41.82 - Altered mental status, unspecified Status: Acute (2) Sepsis due to pneumonia Code(s): J18.9 - Pneumonia, unspecified organism; A41.9 - Sepsis, unspecified organism Status: Acute (3) Acute exacerbation of CHF (congestive heart failure) Code(s): I50.9 - Heart failure, unspecified Status: Acute (4) Pneumonia Code(s): J18.9 - Pneumonia, unspecified organism Status: Acute (5) COPD (chronic obstructive pulmonary disease) Code(s): J44.9 - Chronic obstructive pulmonary disease, unspecified Status: Chronic (6) Atrial fibrillation Code(s): I48.91 - Unspecified atrial fibrillation Status: Chronic (7) Diabetes mellitus type 2 with complications Code(s): E11.8 - Type 2 diabetes mellitus with unspecified complications Status: Chronic (8) CKD (chronic kidney disease) stage 3, GFR 30-59 ml/min Code(s): N18.3 - Chronic kidney disease, stage 3 (moderate) Status: Chronic (9) History of Clostridium difficile infection Code(s): Z86.19 - Personal history of other infectious and parasitic diseases Status: Acute (10) Nutrition, metabolism, and development symptoms Code(s): R63.8 - Other symptoms and signs concerning food and fluid intake Status: Acute <Ever Roman - 11/08/17 22:50> (1) Altered mental status, unspecified Code(s): R41.82 - Altered mental status, unspecified Status: Acute Plan: Altered mental status overnight, currently resolved. She feels unwell and is noted to have worsened CXR overnight. ABG showing pH 7.468, Co2 33, pO2 69.3 on 4L NC. She is noted to have EKG with afib, unchanged, and normal cardiac enzymes. CT head ordered overnight and pending. Per AM nurse patient continues to be confused intermittently. Restoril was discontinued after one dose 7/7 PM. Interventions Overnight: * Workup as above * Lasix 20mg IV x 1 * CT ordered and pending * Lactic acid ordered and pending * BiPap - patient anxious regarding wearing the mask. ABG overall unremarkable however patient is high risk for decompensation based on her history Patient clinically with picture concerning for worsening Pneumonia. * Noted to have no IV access at this time, Vascular access team consulted * Broadening antibiotics to Vancomycin, Cefepime and Azithromycin * Given fluid overload will restart Lasix 40mg IV BID starting this evening ( had IV dose this morning, will give PRN doses this morning as needed) * Low threshold for transfer if continuing to worsen * Will consider adding morphine IV to her regimen for decreased anxiety on Bipap if CT wnl and patient confusion resolves (2) Sepsis due to pneumonia Code(s): J18.9 - Pneumonia, unspecified organism; A41.9 - Sepsis, unspecified organism Status: Acute Plan: Patient is noted to meet sepsis criteria this morning given lactic acid 2.1, leukocytosis of 13.3, respiratory rate 20, suspected source pneumonia. She also does notably have chronic kidney disease thus creatinine is greater than 2 however this is likely related to Lasix diuresis rather than sepsis. * Treating for HCAP with broad coverage as noted * Lactic acid sepsis protocol was ordered, will repeat lactic acid per protocol * Repeat blood cultures will be ordered if patient continues to decompensate, blood cultures from 11/06 pending and no growth to date * Sputum cultures ordered and pending, though patient is not having productive cough at this time * Continue respiratory support as noted (3) Acute exacerbation of CHF (congestive heart failure) Code(s): I50.9 - Heart failure, unspecified Status: Acute Plan: Plan: Continue gentle diuresis, transition back to IV Lasix as noted above Hospital Course: CHF with Echo September 2017 showing EF of 35-40% Patient has been diuresing well and is next positive fluid balance 1310ml IV to PO 11/07 with worsening lung exam and symptoms overnight PO to IV transition 11/08. Had 20mg IV Lasix at 4am, will repeat 20mg IV Lasix this morning x 1 and then 40 mg IV twice daily this evening BNP 778 on 11/08, was in 3000s on admission Continue to monitor I's and O's and daily weights Continue fluid restriction and heart healthy, low-salt diet Continue supplemental oxygen as needed, patient is on 2 L nasal cannula at home BiPAP as needed for respiratory distress (4) Pneumonia Code(s): J18.9 - Pneumonia, unspecified organism Status: Acute Plan: CXR worsening today, will broaden to Vancomycin, Cefepime and Azithromycin. No cough, lactic acid pending, sputum culture ordered. Hospital Course: CXR 11/06 showing diffuse interstitial come opacities, possible pneumonia. -Patient has been afebrile Antibiotics with Rocephin and azithromycin initiated 11/06 on admission - Monitor pulse oximetry and supplemental oxygen as needed - Duo nebs as needed - Blood cultures are NGTD from admission date (5) COPD (chronic obstructive pulmonary disease) Code(s): J44.9 - Chronic obstructive pulmonary disease, unspecified Status: Chronic Plan: Patient with history of COPD with clinical worsening characterized by shortness of breath and altered mental status overnight. The patient initially did not meet criteria suggestive of COPD exacerbation, will broaden antibiotics as noted and initiate Solu-Medrol 60 mg IV every 8 hours at this time (6) Atrial fibrillation Code(s): I48.91 - Unspecified atrial fibrillation Status: Chronic Plan: Overnight patient received labetolol IV dose x 1 with HR 120s-130s at this time. Suspect delayed cardizem dose 11/07 contributory to HR elevation overnight. Will continue cardizem 300mg daily, continue metoprolol, add IV cardizem as needed for sustained HR >140 (MD notification needed for this). Once time 125mcg dose of PO digoxin given this morning, will monitor response. Cardiac workup negative for acute signs of ischemia this morning. Impression/Hospital Course: History of atrial fibrillation with fluctuating heart rates in the 100s-150s -Continue to monitor on telemetry -ACS rule out has been performed, troponins negative 3 with repeat troponin 11/08 negative -Increase Cardizem from 240 mg daily to 300 mg daily -Continue metoprolol 50 mg twice daily -Continue Brilinta and Eliquis -Add digoxin 125mcg x 1 PO dose 7/8 AM (7) Diabetes mellitus type 2 with complications Code(s): E11.8 - Type 2 diabetes mellitus with unspecified complications Status: Chronic Plan: Chronic, patient has never been on insulin at home. Will initiate low-dose sliding scale and hold metformin. (8) CKD (chronic kidney disease) stage 3, GFR 30-59 ml/min Code(s): N18.3 - Chronic kidney disease, stage 3 (moderate) Status: Chronic Plan: Baseline creatinine around 1.8, creatinine is 2.2 today -Monitor with daily labs given diuresis - Avoid nephrotoxic agents outside of diuretic - Renally dose medications (9) History of Clostridium difficile infection Code(s): Z86.19 - Personal history of other infectious and parasitic diseases Status: Acute Plan: Patient with formed stools on admission with diarrhea reported this morning. Will order C diff toxin and monitor results. Continue probiotics. Notably patient completed 10 day course of PO vancomycin in October 2017 with resolution of diarrhea as outpatient (10) Nutrition, metabolism, and development symptoms Code(s): R63.8 - Other symptoms and signs concerning food and fluid intake Status: Acute Plan: Fluids: tolerating PO/gentle diuresis Electrolytes: monitor and replete as needed, reviewed Nutrition: Cardiac diet, will monitor blood sugars and transition to diabetic + heart healthy diet if needed DVT Prophylaxis: Early ambulation. Bilateral SCDs GI Prophylaxis: PPI PRN anti-HTN: Labetalol given tachycardia PRN for SBP > 160/ and/or DBP > 90 <Kylah Carter - 11/08/17 10:02> - Assessment and Plan 72-year-old female with medical history significant for COPD, atrial fibrillation, heart failure with reduced EF, and diabetes who presented with acute onset shortness of breath and admitted for management of CHF exacerbation and pneumonia. <Kylah Carter - 11/08/17 10:19> Discharge Planning: Disposition: Anticipate patient to have a 5-day hospitalization with likely discharge to SNF versus home with home health. Case management consulted. PT consulted and tentatively recommending home PT however this may change <Kylah Carter - 11/08/17 10:19> - Attending Attestation Pt. examined and case discussed with resident physicians. I have read the above note and agree with the assessment and plan as discussed with me. I was involved in all medical decision making for this patient. Ever Roman MD <Ever Roman - 11/08/17 22:50> <Kylah Carter - Last Filed: 11/08/17 10:02> (3) Acute exacerbation of CHF (congestive heart failure) Qualifiers: Heart failure type: unspecified Qualified Code(s): I50.9 - Heart failure, unspecified (5) COPD (chronic obstructive pulmonary disease) Qualifiers: COPD type: COPD with acute exacerbation Qualified Code(s): J44.1 - Chronic obstructive pulmonary disease with (acute) exacerbation (7) Diabetes mellitus type 2 with complications Qualifiers: Diabetes mellitus dedicated intermodal truck driver insulin use: without chcf use Qualified Code (s): E11.8 - Type 2 diabetes mellitus with unspecified complications <Ever Roman - Last Filed: 11/08/17 22:50> (3) Acute exacerbation of CHF (congestive heart failure) Qualifiers: Heart failure type: unspecified Qualified Code(s): I50.9 - Heart failure, unspecified (5) COPD (chronic obstructive pulmonary disease) Qualifiers: COPD type: COPD with acute exacerbation Qualified Code(s): J44.1 - Chronic obstructive pulmonary disease with (acute) exacerbation (7) Diabetes mellitus type 2 with complications Qualifiers: Diabetes mellitus chcf insulin use: without dedicated intermodal truck driver use Qualified Code (s): E11.8 - Type 2 diabetes mellitus with unspecified complications <Kylah Carter - Last Filed: 11/08/17 10:02> (3) Acute exacerbation of CHF (congestive heart failure) Qualifiers: Heart failure type: unspecified Qualified Code(s): I50.9 - Heart failure, unspecified (5) COPD (chronic obstructive pulmonary disease) Qualifiers: COPD type: COPD with acute exacerbation Qualified Code(s): J44.1 - Chronic obstructive pulmonary disease with (acute) exacerbation (7) Diabetes mellitus type 2 with complications Qualifiers: Diabetes mellitus dedicated intermodal truck driver insulin use: without chcf use Qualified Code (s): E11.8 - Type 2 diabetes mellitus with unspecified complications <Ever Roman - Last Filed: 11/08/17 22:50> (3) Acute exacerbation of CHF (congestive heart failure) Qualifiers: Heart failure type: unspecified Qualified Code(s): I50.9 - Heart failure, unspecified (5) COPD (chronic obstructive pulmonary disease) Qualifiers: COPD type: COPD with acute exacerbation Qualified Code(s): J44.1 - Chronic obstructive pulmonary disease with (acute) exacerbation (7) Diabetes mellitus type 2 with complications Qualifiers: Diabetes mellitus chcf insulin use: without dedicated intermodal truck driver use Qualified Code (s): E11.8 - Type 2 diabetes mellitus with unspecified complications
[2017-11-08] MEDS ORDERED: Vancomycin Consult Pharmacy 1 EACH OTHER SCH (08:00)
[2017-11-08] MEDS ORDERED: Vancomycin Inj 1 GM/200 ML PIGGYBACK IV.SIG SCH (08:00)
--- NOTE | 2017-11-08 08:03 | P.PNADD ---
Addendum to Inpatient Note Reason for Addendum: Additional Documentation Additional information: Patient with continued shortness of breath and new onset vomiting. Patient with some intermittent confusion. Vitals: Afebrile, HR 135, 94% on 4L NC. 72-year-old female with medical history significant for COPD, atrial fibrillation, heart failure with reduced EF, and diabetes who presented with acute onset shortness of breath and admitted for management of CHF exacerbation and pneumonia. Shortness of breath persistent complaint. New onset vomiting. 1. Altered Mental Status. Intermittent confusion. CT ordered. Low threshold for CT due to prior set of signs/symptoms. 2. Shortness of Breath. Patient with continued shortness of breath. Oxygen saturation in low 90s. Patient on 4L NC. Patient refusing BiPAP. CXR: Increased bilateral lower lung zone opacity likely representing consolidation versus atelectasis. The change may also be somewhat technical as kyphotic positioning of the patient is noted. CBC: WBC 13.3. EKG: A.fib with RVR. Troponin less than 0.02. Ordered ABG. Ordered lactic acid. Discussed with Dr. Chen. Discussed with Dr. Kylah Carter, who resumed patient care.
[2017-11-08] MEDS: Metoprolol Tartrate 25 MG Tablet PO SCH (08:44)
[2017-11-08] MEDS ORDERED: dilTIAZem 60 MG Tablet PO SCH (09:00)
[2017-11-08] MEDS ORDERED: Vancomycin Inj 1,750 MG in Sodium Chlor 0.9% Inj 500 ML IV.SIG ONE (10:00)
[2017-11-08] MEDS ORDERED: Digoxin 125 MCG Tablet PO ONE (10:05)
[2017-11-08] MEDS: Famotidine PF Inj 20 MG/2 ML Vial IV.PUSH SCH (10:32)
[2017-11-08] MEDS: MethylPREDNISolone Sod Succinate Inj 125 MG/2 ML Vial IV.PUSH SCH ×2 (10:38→17:24)
[2017-11-08] MEDS ORDERED: RESP: Levalbuterol 1.25 MG/3 ML Neb (PRN) NEB (11:00)
[2017-11-08] MEDS ORDERED: MethylPREDNISolone Sod Succinate Inj 125 MG/2 ML Vial IV.PUSH SCH (11:00)
--- NOTE | 2017-11-08 11:11 | ECG ---
Date Performed: 11/08/2017 Time Performed: 05:54:32 PTAGE: 72 years EKG: Atrial fibrillation with rapid ventricular response Possible anterior infarct - age undeter mined Inferior/lateral ST-T changes are nonspecific Abnormal ECG NO PREVIOUS TRACING DOCTOR: Kosta Augustine Interpretating Date/Time 11/08/2017 11:10:28
[2017-11-08] MEDS: Senna/Docusate Sodium 8.6/50 MG Tablet PO SCH (11:23)
[2017-11-08] MEDS: Insulin NovoLOG Aspart Correctional Sugar Inj SQ SCH ×4 (11:26→21:51)
--- NOTE | 2017-11-08 14:35 | MB ---
cc: Martha Guaman MD DATE: 11/08/2017 HISTORY OF PRESENT ILLNESS: Ms. Sosa is a 72-year-old white female with a recent hospitalization for respiratory failure, congestive heart failure and acute exacerbation of COPD. She was sent to rehabilitation after that September admission, was there for about 2 weeks, went home for less than a week and was back in the hospital with shortness of breath, congestive heart failure and probable flare of her underlying COPD again. On admission, on BiPAP pO2 was 82 with a pH 7.36, pCO2 of 41. Today, she was not tolerating BiPAP, so she was placed on 4 liters nasal cannula and her pO2 of 69 with a pH 7.47, a pCO2 of 33. Her chest x-ray on presentation revealed interstitial opacities consistent with pulmonary edema. No lobar consolidation. Followup chest x-ray today reveals a lower lung zone consolidation, probable atelectasis, although technique is noted to be distorted. The patient is awake, alert, comfortable, complains of congestion. No chest pain. Blood cultures on admission were negative. No sputum has been able to be obtained. White count has ranged from 11 on admission, 13.3 today. The patient smoked up to the time of the last admission, but only smoked a few cigarettes when she returned home. She understands that she must stop smoking. She says she was diagnosed with COPD as long as 10 years ago and was on Advair and oxygen at home. She also has a significant prior coronary history, having had a bypass in 2004 and stents placed in 08/2017, and atrial fibrillation with rapid ventricular response and recurrent CHF. She is followed by Dr. Madden. No history of thromboembolic disease. MEDICATIONS AT HOME AND CURRENTLY: Reviewed in the EMR. SOCIAL HISTORY: Smoking noted over 50 pack years. No excessive alcohol use. She lives alone, manages her own affairs, is fairly independent, but she does have family here who helps out. She does have a son, but he does not live locally. ADDITIONAL PAST MEDICAL HISTORY: Right knee replacement in 2014. Lumbosacral spine surgery for degenerative arthritis, cataracts removed, total hysterectomy in 1973. Esophageal dilatation for reflux and stricture. ALLERGIES: NONE KNOWN. PHYSICAL EXAMINATION: GENERAL: Awake, alert, comfortable at rest. VITAL SIGNS: Pulse rate is high, though in the 120s, irregular, respirations 24-26. Blood pressure 140/90. O2 saturation running in the 90s on 4 liters. HEENT: Sclerae pale, anicteric. NECK: Veins are not distended. CHEST: Mildly congested. Faint wheezes. Irregular rhythm. ABDOMEN: Soft. EXTREMITIES: 1+ peripheral edema. No calf tenderness. Sequential hose in place. DISCUSSION: Ms. Sosa presents with significant cardiovascular disease, EF estimated by a lead quality technician in the room at the time I examined her is 30-40%. She probably also has significant underlying pulmonary disease related to many years of smoking. She has not tolerated BiPAP, in fact she says she refuses to use it because it makes her feel worse. We will continue her Atrovent in light of the tachycardia, we will try to avoid beta agonist. Continue her IV corticosteroids and antibiotics along with oxygen. Status is currently stable, but marginally compensated. She will not use BiPAP at this point. She says it makes her worse. If condition were to decline, we have to transfer her back to the intensive care unit and at this point, she would want full resuscitation including ventilation. Further diagnostic and/or therapeutic intervention will depend on her ongoing clinical course. R. MD DUYEN Davis/ALFONSO , 02:09 PM , 02:34 PM
[2017-11-08] MEDS ORDERED: Metoprolol Tartrate 50 MG Tablet PO ONE (15:46)
--- NOTE | 2017-11-08 18:25 | ECHRPT ---
Indication: HEART FAILURE CONCLUSIONS Mildly dilated left ventricle. Wall thickness is normal. The left ventricular systolic function is moderately to severely reduced with an estimated ejection fraction in the range of 30-35%. There is global left ventricular dysfunction. The left atrial size is zxtj-cm-fvqfylgene dilated. The right atrial size is yoer-ji-aomjnkfggw dilated. Severe mitral valve regurgitation. Mild to moderate thickening of the aortic valve leaflets. Bhqv-ro-xxotmabv aortic valve regurgitation. There is moderate to severe tricuspid valve regurgitation. The estimated pulmonary arterial pressure is 64 mmHg. There is estimated jeabzkhc-do-drppio pulmonary hypertension present (range 60-70 mmHg). A right sided pleural effusion is present. BP: / HR: Rhythm: Atrial fibrillation, Atrial flut ter, PVCs MEASUREMENTS (Male / Female) Normal Values Technical Quality:Fair 2D ECHO LV Diastolic Diameter PLAX 5.9 cm 4.2 - 5.9 / 3.9 - 5.3 cm LV Systolic Diameter PLAX 5.2 cm IVS Diastolic Thickness 0.8 cm 0.6 - 1.0 / 0.6 - 0.9 cm LVPW Diastolic Thickness 0.8 cm 0.6 - 1.0 / 0.6 - 0.9 cm LV Relative Wall Thickness 0.3 RV Internal Dim ED PLAX 3.0 cm LVOT Diameter 2.2 cm Aortic Root Diameter 3.0 cm LA Systolic Diameter LX 4.4 cm 3.0 - 4.0 / 2.7 - 3.8 cm M-MODE AV Cusp Separation MM 1.6 cm DOPPLER AV Peak Velocity 154.5 cm/s AV Peak Gradient 9.5 mmHg AV Mean Gradient 5.0 mmHg AV Velocity Time Integral 22.9 cm LVOT Peak Velocity 68.0 cm/s LVOT Peak Gradient 1.9 mmHg LVOT Velocity Time Integral 11.1 cm AV Area Cont Eq vti 1.8 cm AV Area Cont Eq pk 1.7 cm LV E' Lateral Velocity 10.2 cm/s LV E' Septal Velocity 6.9 cm/s TR Peak Velocity 368.0 cm/s TR Peak Gradient 54.2 mmHg Right Atrial Pressure 10.0 mmHg Pulmonary Artery Systolic Pressu 64.2 mmHg Right Ventricular Systolic Press 64.2 mmHg PV Peak Velocity 29.2 cm/s PV Peak Gradient 0.3 mmHg FINDINGS LEFT VENTRICLE Mildly dilated left ventricle. Wall thickness is normal. The left ventricular systolic function is severely reduced with an estimated ejection fraction in th e range of 30-35%. There is global left ventricular dysfunction. RIGHT VENTRICLE Normal right ventricular size and systolic function. LEFT ATRIUM The left atrial size is esew-yx-ctacerzojd dilated. RIGHT ATRIUM The right atrial size is aorz-ue-mkyiwgtsan dilated. ATRIAL SEPTUM No atrial level shunt is demonstrated by color flow Doppler interrogation. AORTA The aortic root and proximal ascending aorta are normal in size on limited imaging. MITRAL VALVE Severe mitral valve regurgitation. AORTIC VALVE Mild to kjnufmlyhhul-ms-hacikalf aortic valve regurgitation. thickening of the aortic valve leaflets. TRICUSPID VALVE There is moderate to severe tricuspid valve regurgitation. The estimated pulmonary arterial pressure is 64.2 mmHg. There is estimated rifyjzpy-un-caplmd pulmonary hypertension present (range 60-70 mmHg). PULMONARY VALVE No pulmonary valve regurgitation or stenosis. VESSELS The inferior vena cava is normal in size. PERICARDIUM A right sided pleural effusion is present. Izzy Garcia MD, FACC (Electronically Signed) Final Date:08 November 2017 18:24
[2017-11-08 19:16] LABS: Bilirubin,Urine Negative (Negative); Clarity,Urine Clear (Clear); Color,Urine Yellow (Yellw/Straw); Glucose,Urine (UA) 50 mg/dL (Negative); Leukocyte Esterase,Urine Negative (Negative); Mucus,Urine Few /lpf (Occasional); Nitrite,Urine Negative (Negative); Specific Gravity,Urine 1.011 (1.002-1.035); Squamous Epithelial Cell,Urine 2 /hpf (0-5)
[2017-11-08] MEDS: Metoprolol Tartrate 50 MG Tablet PO SCH (21:51)
[2017-11-09] MEDS ORDERED: RESP: Levalbuterol 1.25 MG/3 ML Neb (SCH) NEB
[2017-11-09] MEDS: RESP: Levalbuterol 1.25 MG/3 ML Neb (SCH) NEB ×7 (00:15→20:39)
[2017-11-09] MEDS: MethylPREDNISolone Sod Succinate Inj 125 MG/2 ML Vial IV.PUSH SCH ×2 (02:52→09:01)
[2017-11-09] MEDS: Azithromycin Inj 500 MG in Sodium Chlor 0.9% Inj 250 ML IV.SIG SCH (02:52)
[2017-11-09] MEDS: Chlorhexidine Gluconate 2% 1 Pack (2 Cloths) TOPICAL SCH (06:31)
[2017-11-09 07:25] LABS: Baso % (Auto) 0.1 % (0.0-2.0); Hematocrit 31.7 % (35.0-46.0); Hemoglobin 10.3 gm/dL (11.6-15.3); INR 1.4 Ratio; Lymph # (Auto) 0.3 th/mm3 (1.0-4.8); Lymph % (Auto) 5.2 % (9.0-44.0); Mean Corpuscular HGB Conc 32.6 % (32.0-36.0); Mean Corpuscular Hemoglobin 30.3 pg (27.0-34.0); Mean Corpuscular Volume 92.9 fL (80.0-100.0); Mean Platelet Volume 9.5 fL (7.0-11.0); Mono # (Auto) 0.2 th/mm3 (0.0-0.9); Mono % (Auto) 2.7 % (0.0-8.0); Neut # (Auto) 5.1 th/mm3 (1.8-7.7); Platelet Count 224 th/mm3 (150-450); Prothrombin Time 14.6 sec (9.8-11.6); Red Blood Count 3.41 mil/mm3 (4.00-5.30); Red Cell Distribution Width 17.5 % (11.6-17.2); White Blood Count 5.5 th/mm3 (4.0-11.0)
[2017-11-09 07:47] LABS: Alanine Aminotransferase 201 U/L (10-53); Albumin 3.3 g/dL (3.4-5.0); Alkaline Phosphatase 108 U/L (45-117); Anion Gap 12 meq/L (5-15); Aspartate Aminotransferase 227 U/L (15-37); Blood Urea Nitrogen 43 mg/dL (7-18); Calcium 8.4 mg/dL (8.5-10.1); Carbon Dioxide 25.3 meq/L (21.0-32.0); Chloride 105 meq/L (98-107); Glomerular Filtration Rate 25 mL/min (>89); Glucose,Random 160 mg/dL (74-106); Potassium 4.1 meq/L (3.5-5.1); Sodium 142 meq/L (136-145); Total Protein 7.1 g/dL (6.4-8.2); Vancomycin,Random 19.7 Comment
[2017-11-09] MEDS: Insulin NovoLOG Aspart Correctional Sugar Inj SQ SCH ×4 (08:10→21:55)
[2017-11-09] MEDS: Famotidine PF Inj 20 MG/2 ML Vial IV.PUSH SCH (08:30)
[2017-11-09] MEDS: dilTIAZem 60 MG Tablet PO SCH ×4 (08:36→21:42)
[2017-11-09] MEDS: Metoprolol Tartrate 50 MG Tablet PO SCH ×2 (08:36→21:42)
--- NOTE | 2017-11-09 09:47 | P.PNFP ---
Subjective Interval history: Patient was seen and examined this morning. She reports that yesterday was a fog for her and she does recall much from it. She endorses shortness of breath but has been tolerating meals. She ambulates with assistance to restroom and is have loose stools, pending C diff screen. No fevers, chills, nausea, vomiting in last 24 hr. Feels intermittent palpitations but no chest pain. CT head and chest ordered yesterday pending. Echo report reviewed with patient at bedside, stable from last report in September 2017 with possible mild reduction in EF (35-40% in September, 30-35% now). <Kylah Carter - 11/09/17 09:46> Results - Labs Result diagrams: 11/11/17 06:39 11/11/17 06:39 <Barbara Arredondo - 11/11/17 13:29> Abnormal lab results 11/10/17 11/10/17 11/10/17 Range/Units 08:10 17:08 21:21 RBC (4.00-5.30) mil/mm3 Hgb (11.6-15.3) gm/dL Hct (35.0-46.0) % RDW (11.6-17.2) % Neut % (Auto) (16.0-70.0) % Lymph % (Auto) (9.0-44.0) % Neut # (Auto) (1.8-7.7) th/mm3 Lymph # (Auto) (1.0-4.8) th/mm3 BUN (7-18) mg/dL Creatinine (0.50-1.00) mg/dL Estimated GFR (>89) mL/min POC Glucose 265 H 230 H (68-110) mg/dl Random Glucose (74-106) mg/dL AST (15-37) U/L ALT (10-53) U/L B-Natriuretic Peptide 1135 H (0-100) pg/mL Albumin (3.4-5.0) g/dL 11/11/17 11/11/17 11/11/17 Range/Units 05:44 06:39 06:39 RBC 3.46 L (4.00-5.30) mil/mm3 Hgb 10.4 L (11.6-15.3) gm/dL Hct 32.1 L (35.0-46.0) % RDW 17.4 H (11.6-17.2) % Neut % (Auto) 91.4 H (16.0-70.0) % Lymph % (Auto) 4.0 L (9.0-44.0) % Neut # (Auto) 7.8 H (1.8-7.7) th/mm3 Lymph # (Auto) 0.3 L (1.0-4.8) th/mm3 BUN 59 H (7-18) mg/dL Creatinine 2.48 H (0.50-1.00) mg/dL Estimated GFR 19 L (>89) mL/min POC Glucose 174 H (68-110) mg/dl Random Glucose 156 H (74-106) mg/dL AST 72 H (15-37) U/L ALT 159 H (10-53) U/L B-Natriuretic Peptide (0-100) pg/mL Albumin 3.3 L (3.4-5.0) g/dL 11/11/17 Range/Units 12:02 RBC (4.00-5.30) mil/mm3 Hgb (11.6-15.3) gm/dL Hct (35.0-46.0) % RDW (11.6-17.2) % Neut % (Auto) (16.0-70.0) % Lymph % (Auto) (9.0-44.0) % Neut # (Auto) (1.8-7.7) th/mm3 Lymph # (Auto) (1.0-4.8) th/mm3 BUN (7-18) mg/dL Creatinine (0.50-1.00) mg/dL Estimated GFR (>89) mL/min POC Glucose 160 H (68-110) mg/dl Random Glucose (74-106) mg/dL AST (15-37) U/L ALT (10-53) U/L B-Natriuretic Peptide (0-100) pg/mL Albumin (3.4-5.0) g/dL Short CBC 11/11/17 Range/Units 06:39 WBC 8.5 (4.0-11.0) th/mm3 Hgb 10.4 L (11.6-15.3) gm/dL Hct 32.1 L (35.0-46.0) % Plt Count 250 (150-450) th/mm3 BMP 11/11/17 06:39 Sodium 142 Potassium 3.8 Chloride 105 Carbon Dioxide 27.0 BUN 59 H Creatinine 2.48 H Calcium 8.7 Liver Function 11/11/17 Range/Units 06:39 Total Bilirubin 0.7 (0.2-1.0) mg/dL AST 72 H (15-37) U/L ALT 159 H (10-53) U/L Alkaline Phosphatase 96 (45-117) U/L Albumin 3.3 L (3.4-5.0) g/dL <Barbara Arredondo - 11/11/17 13:29> Abnormal lab results 11/08/17 11/08/17 11/08/17 Range/Units 08:36 12:01 17:28 RBC (4.00-5.30) mil/mm3 Hgb (11.6-15.3) gm/dL Hct (35.0-46.0) % RDW (11.6-17.2) % Neut % (Auto) (16.0-70.0) % Lymph % (Auto) (9.0-44.0) % Lymph # (Auto) (1.0-4.8) th/mm3 PT (9.8-11.6) sec BUN (7-18) mg/dL Creatinine (0.50-1.00) mg/dL Estimated GFR (>89) mL/min POC Glucose 208 H 213 H (68-110) mg/dl Random Glucose (74-106) mg/dL Lactic Acid 2.1 H (0.4-2.0) mmol/L Calcium (8.5-10.1) mg/dL AST (15-37) U/L ALT (10-53) U/L Albumin (3.4-5.0) g/dL Urine Protein (Neg-Trace) mg/dL Urine Occult Blood (Negative) Urine Mucus (Occasional) /lpf 11/08/17 11/08/17 11/09/17 Range/Units 18:43 21:00 06:13 RBC (4.00-5.30) mil/mm3 Hgb (11.6-15.3) gm/dL Hct (35.0-46.0) % RDW (11.6-17.2) % Neut % (Auto) (16.0-70.0) % Lymph % (Auto) (9.0-44.0) % Lymph # (Auto) (1.0-4.8) th/mm3 PT (9.8-11.6) sec BUN 43 H (7-18) mg/dL Creatinine 1.98 H (0.50-1.00) mg/dL Estimated GFR 25 L (>89) mL/min POC Glucose 175 H (68-110) mg/dl Random Glucose 160 H (74-106) mg/dL Lactic Acid (0.4-2.0) mmol/L Calcium 8.4 L D (8.5-10.1) mg/dL AST 227 H (15-37) U/L ALT 201 H (10-53) U/L Albumin 3.3 L (3.4-5.0) g/dL Urine Protein 30 H (Neg-Trace) mg/dL Urine Occult Blood Small H (Negative) Urine Mucus Few H (Occasional) /lpf 11/09/17 11/09/17 11/09/17 Range/Units 06:13 06:13 07:38 RBC 3.41 L (4.00-5.30) mil/mm3 Hgb 10.3 L (11.6-15.3) gm/dL Hct 31.7 L (35.0-46.0) % RDW 17.5 H (11.6-17.2) % Neut % (Auto) 92.0 H (16.0-70.0) % Lymph % (Auto) 5.2 L (9.0-44.0) % Lymph # (Auto) 0.3 L (1.0-4.8) th/mm3 PT 14.6 H (9.8-11.6) sec BUN (7-18) mg/dL Creatinine (0.50-1.00) mg/dL Estimated GFR (>89) mL/min POC Glucose 144 H (68-110) mg/dl Random Glucose (74-106) mg/dL Lactic Acid (0.4-2.0) mmol/L Calcium (8.5-10.1) mg/dL AST (15-37) U/L ALT (10-53) U/L Albumin (3.4-5.0) g/dL Urine Protein (Neg-Trace) mg/dL Urine Occult Blood (Negative) Urine Mucus (Occasional) /lpf Short CBC 11/09/17 Range/Units 06:13 WBC 5.5 (4.0-11.0) th/mm3 Hgb 10.3 L (11.6-15.3) gm/dL Hct 31.7 L (35.0-46.0) % Plt Count 224 (150-450) th/mm3 BMP 11/09/17 06:13 Sodium 142 Potassium 4.1 Chloride 105 Carbon Dioxide 25.3 BUN 43 H Creatinine 1.98 H Calcium 8.4 L D Liver Function 11/09/17 Range/Units 06:13 Total Bilirubin 0.6 (0.2-1.0) mg/dL AST 227 H (15-37) U/L ALT 201 H (10-53) U/L Alkaline Phosphatase 108 (45-117) U/L Albumin 3.3 L (3.4-5.0) g/dL Urine 11/08/17 Range/Units 18:43 Urine Color Yellow (Yellw/Straw) Urine Clarity Clear (Clear) Urine pH 5.0 (5.0-8.5) Ur Specific Garner 1.011 (1.002-1.035) Urine Protein 30 H (Neg-Trace) mg/dL Urine Glucose (UA) 50 (Negative) mg/dL <Kylah Carter L - 11/09/17 09:46> Physical Exam Vital signs: Vital Signs 11/10/17 14:00 11/10/17 15:00 11/10/17 15:42 Temperature Pulse Rate 73 74 Respiratory Rate Blood Pressure Pulse Oximetry 95 11/10/17 15:44 11/10/17 16:00 11/10/17 17:00 Temperature 97.6 F Pulse Rate 98 H 72 94 H Respiratory Rate 18 18 Blood Pressure 100/63 Pulse Oximetry 98 11/10/17 18:00 11/10/17 19:00 11/10/17 20:00 Temperature 98 F Pulse Rate 93 H 80 76 Respiratory Rate 20 Blood Pressure 119/74 Pulse Oximetry 11/10/17 21:00 11/10/17 21:12 11/10/17 22:00 Temperature Pulse Rate 74 96 H 78 Respiratory Rate 16 Blood Pressure Pulse Oximetry 11/10/17 23:00 11/11/17 00:00 11/11/17 01:00 Temperature Pulse Rate 74 75 66 Respiratory Rate Blood Pressure Pulse Oximetry 11/11/17 02:00 11/11/17 03:00 11/11/17 03:32 Temperature Pulse Rate 70 76 76 Respiratory Rate 16 Blood Pressure Pulse Oximetry 96 11/11/17 04:00 11/11/17 05:00 11/11/17 06:00 Temperature 97.9 F Pulse Rate 90 84 78 Respiratory Rate 18 Blood Pressure 133/79 Pulse Oximetry 11/11/17 07:00 11/11/17 09:37 11/11/17 11:00 Temperature 98.2 F 98.5 F Pulse Rate 97 H 84 101 H Respiratory Rate 20 18 16 Blood Pressure 131/75 136/78 Pulse Oximetry 95 96 Intake & Output 11/10/17 11/11/17 11/11/17 18:59 06:59 18:59 Intake Total 1060 / 1060 240 / 240 Output Total 750 / 750 2100 / 2100 Balance 310 / 310 -1860 / -1860 Weight 78.9 kg Intake: IV 100 / 100 Maxipime Inj 2,000 MG In NS Inj 100 / 100 100 ML @ 200 mls/hr IV.SIG Q12H MELANIE Rx#:[id number] Oral 960 / 960 240 / 240 Output: Urine 650 / 650 2000 / 2000 Urine/Stool Mix 100 / 100 100 / 100 Other: # Voids 4 4 Date of Last Bowel Movement 11/10/17 11/10/17 # Bowel Movements 2 1 <Barbara Arredondo M - 11/11/17 13:29> Vital Signs 11/08/17 10:00 11/08/17 10:33 11/08/17 10:39 Temperature Pulse Rate 132 H 130 H 135 H Respiratory Rate 22 28 H Blood Pressure 138/108 H Pulse Oximetry 93 L 11/08/17 10:49 11/08/17 11:00 11/08/17 11:10 Temperature Pulse Rate 119 H 139 H 131 H Respiratory Rate 24 33 H Blood Pressure 134/89 142/104 H Pulse Oximetry 94 L 89 L 11/08/17 12:00 11/08/17 13:00 11/08/17 13:11 Temperature Pulse Rate 120 H 156 H Respiratory Rate 31 H Blood Pressure Pulse Oximetry 11/08/17 14:00 11/08/17 15:00 11/08/17 15:30 Temperature Pulse Rate 127 H 155 H Respiratory Rate Blood Pressure Pulse Oximetry 93 L 11/08/17 15:31 11/08/17 16:00 11/08/17 17:00 Temperature 98 F Pulse Rate 133 H 138 H 126 H Respiratory Rate 24 30 H Blood Pressure 136/91 H Pulse Oximetry 99 11/08/17 19:00 11/08/17 20:00 11/08/17 21:00 Temperature 97 F L Pulse Rate 112 H 102 H 128 H Respiratory Rate 20 Blood Pressure 134/96 H Pulse Oximetry 100 11/08/17 22:00 11/08/17 23:00 11/08/17 23:29 Temperature Pulse Rate 116 H 121 H 108 H Respiratory Rate 18 Blood Pressure 137/94 H Pulse Oximetry 100 11/09/17 00:00 11/09/17 00:17 11/09/17 01:00 Temperature Pulse Rate 112 H 113 H 108 H Respiratory Rate 18 Blood Pressure Pulse Oximetry 11/09/17 02:00 11/09/17 03:00 11/09/17 03:40 Temperature Pulse Rate 108 H 104 H 97 H Respiratory Rate 16 Blood Pressure 124/81 Pulse Oximetry 100 11/09/17 04:00 11/09/17 05:00 11/09/17 06:00 Temperature Pulse Rate 96 H 116 H 112 H Respiratory Rate Blood Pressure Pulse Oximetry 11/09/17 07:00 Temperature Pulse Rate 117 H Respiratory Rate Blood Pressure Pulse Oximetry Intake & Output 11/08/17 11/09/17 11/09/17 18:59 06:59 18:59 Intake Total 617.5 / 617.5 590 / 590 100 / 100 Output Total 1150 / 1150 Balance 617.5 / 617.5 -560 / -560 100 / 100 Weight 84 kg Intake: IV 617.5 / 617.5 350 / 350 100 / 100 Azithromycin Inj 500 MG In NS 250 / 250 Inj 250 ML @ 250 mls/hr IV.SIG Q24H MELANIE Rx#:[id number] Maxipime Inj 2,000 MG In NS Inj 100 / 100 100 / 100 100 / 100 100 ML @ 200 mls/hr IV.SIG Q12H MELANIE Rx#:[id number] Vancomycin Inj 1,750 MG In NS 517.5 / 517.5 Inj 500 ML @ 250 mls/hr IV.SIG ONCE ONE Rx#:[id number] Oral 240 / 240 Output: Urine 1150 / 1150 Other: Date of Last Bowel Movement 11/08/17 11/08/17 <Kylah Carter - 11/09/17 09:46> Narrative: GENERAL: Elderly female on 3L nasal cannula satting well. She is sitting up in bed eating breakfast. She looks well-rested today. SKIN: Bruising on upper extremities. Cool and dry. HEAD: Atraumatic. Normocephalic. No temporal or scalp tenderness. NECK: Trachea midline. No JVD or lymphadenopathy. CARDIOVASCULAR: Irregular rate and rhythm without murmurs, gallops, or rubs. Heart rate 100-110s on monitor. 1+ lower extremity edema noted. RESPIRATORY: No increased work of breathing. RR ~16. Reduced air movement and breath sounds diminished bilaterally with bilateral intermittent crackles especially at lung bases. GASTROINTESTINAL: Abdomen soft, non-tender, nondistended. Normal bowel sounds. MUSCULOSKELETAL: Extremities cool and dry without clubbing, cyanosis. PSYCHIATRIC: Appropriate mood and affect; insight and judgment normal. NEURO: alert and oriented x 3. No focal neurological deficit. Normal extremity sensation, ROM, and strength. <Kylah Carter - 11/09/17 09:46> Assessment and Plan - Assessment (1) Acute exacerbation of CHF (congestive heart failure) Code(s): I50.9 - Heart failure, unspecified Status: Acute (2) Sepsis due to pneumonia Code(s): J18.9 - Pneumonia, unspecified organism; A41.9 - Sepsis, unspecified organism Status: Resolved (3) Pneumonia Code(s): J18.9 - Pneumonia, unspecified organism Status: Resolved (4) Altered mental status, unspecified Code(s): R41.82 - Altered mental status, unspecified Status: Resolved (5) COPD (chronic obstructive pulmonary disease) Code(s): J44.9 - Chronic obstructive pulmonary disease, unspecified Status: Chronic (6) Atrial fibrillation Code(s): I48.91 - Unspecified atrial fibrillation Status: Chronic (7) Diabetes mellitus type 2 with complications Code(s): E11.8 - Type 2 diabetes mellitus with unspecified complications Status: Chronic (8) CKD (chronic kidney disease) stage 3, GFR 30-59 ml/min Code(s): N18.3 - Chronic kidney disease, stage 3 (moderate) Status: Chronic (9) History of Clostridium difficile infection Code(s): Z86.19 - Personal history of other infectious and parasitic diseases Status: Acute (10) Nutrition, metabolism, and development symptoms Code(s): R63.8 - Other symptoms and signs concerning food and fluid intake Status: Acute <Barbara Arredondo - 11/11/17 13:29> (1) Altered mental status, unspecified Code(s): R41.82 - Altered mental status, unspecified Status: Acute Plan: Altered mental status overnight and intermittently yesterday. Appears to be resolved today. Suspect related to infection, with overall clinical status improved today. Continue to monitor closely, repeat workup as needed. CT head still pending Hospital Course: On 11/08 early AM patient was noted to have AMS. ABG showing pH 7.468, Co2 33, pO2 69.3 on 4L NC. She is noted to have EKG with afib, unchanged, and normal cardiac enzymes. CXR showing possible worsening infiltrate vs fluid. CT head ordered. Restoril was discontinued after one dose 11/07 PM. * Workup as above * Pt received Lasix 20mg IV x 1, continued diuresis as otherwise noted * CT head ordered and pending * Lactic acid ordered, 2.1 * BiPap - patient anxious regarding wearing the mask. ABG overall unremarkable however patient is high risk for decompensation based on her history. Patient clinically with picture concerning for worsening Pneumonia. * Noted to have no IV access at this time, Vascular access team consulted * Broadened antibiotics to Vancomycin, Cefepime and Azithromycin * Given fluid overload will restart Lasix 40mg IV BID starting this evening ( had IV dose this morning, will give PRN doses this morning as needed) * Low threshold for transfer if continuing to worsen * Continue morphine IV for decreased anxiety on Bipap if CT wnl and patient confusion resolves (2) Sepsis due to pneumonia Code(s): J18.9 - Pneumonia, unspecified organism; A41.9 - Sepsis, unspecified organism Status: Acute Plan: Patient is noted to meet sepsis criteria on 11/08 given lactic acid 2.1, leukocytosis of 13.3, respiratory rate 20, suspected source pneumonia. She also does notably have chronic kidney disease thus creatinine is greater than 2 however this is likely related to Lasix diuresis rather than sepsis. * Treating for HCAP with broad coverage as noted * Lactic acid sepsis protocol was ordered, will repeat lactic acid per protocol , (2.1-->2.0) * Repeat blood cultures will be ordered if patient continues to decompensate, blood cultures from 11/06 pending and no growth to date * Sputum cultures ordered and pending, though patient is not having productive cough at this time * Continue respiratory support as noted (3) Acute exacerbation of CHF (congestive heart failure) Code(s): I50.9 - Heart failure, unspecified Status: Acute Plan: Plan: Continue gentle diuresis, transition back to IV Lasix as noted above, continue reducing to PO if patient continues to improve Creatinine slightly improved today Hospital Course: CHF with Echo September 2017 showing EF of 35-40%, on 11/08 showing EF 30-35% Patient has been diuresing well and UOP noted to be 1150cc in 24hr IV to PO 11/07 with worsening lung exam and symptoms overnight PO to IV transition 11/08. Had 20mg IV Lasix at 4am, repeat 20mg IV Lasix this morning x 1 and then 40 mg IV twice daily BNP 778 on 11/08, was in 1000s on admission Continue to monitor I's and O's and daily weights Continue fluid restriction and heart healthy, low-salt diet Continue supplemental oxygen as needed, patient is on 2 L nasal cannula at home BiPAP not tolerated, pt to have progression of respiratory support if needed, is full code (4) Pneumonia Code(s): J18.9 - Pneumonia, unspecified organism Status: Acute Plan: CXR worsening 11/08, CT chest pending. Antibiotics broadened 11/08 to Vancomycin (11/08- current), Cefepime (11/08 - current) and Azithromycin (11/06 - current). She had two doses of Rocephin as well (11/06-11/07). Now has cough with mild sputum production; will obtain sputum culture. Hospital Course: CXR 11/06 showing diffuse interstitial come opacities, possible pneumonia. CXR 11/08 showing possible worsening infiltrates -Patient has been afebrile -White count 13.3 on 11/08, 5.5 on 11/09 Antibiotics with Rocephin and azithromycin initiated 11/06 on admission - Monitor pulse oximetry and supplemental oxygen as needed - Duo nebs as needed - Blood cultures are NGTD from admission date (5) COPD (chronic obstructive pulmonary disease) Code(s): J44.9 - Chronic obstructive pulmonary disease, unspecified Status: Chronic Plan: Continue Solumedrol 60mg IV today, once she has had three doses will decrease to Solumedrol 60mg IV q12hr Hospital Course: Patient with history of COPD with clinical worsening characterized by shortness of breath and altered mental status overnight on 11/08. The patient initially did not meet criteria suggestive of COPD exacerbation, however clinical decline led to broadening antibiotics as noted and initiating Solu-Medrol 60 mg IV every 8 hours on 11/08. Pulmonology consulted, CT chest ordered, appreciate recommendations (6) Atrial fibrillation Code(s): I48.91 - Unspecified atrial fibrillation Status: Chronic Plan: Hemodynamically stable. HR in 100s-110s at time of evaluation this morning, range over 24 hr is 96 to 155. Restart Cardizem at 60mg PO q6hr at this time, will add IV cardizem doses as needed with goal to transition to only home dose of cardizem. Metoprolol was increased to 50mg PO BID on 11/08, to continue for now as long as BP tolerates this Impression/Hospital Course: History of atrial fibrillation with fluctuating heart rates in the 100s-150s * Continue to monitor on telemetry * ACS rule out has been performed, troponins negative 3 with repeat troponin 11/08 negative * Increase Cardizem from 240 mg daily to 300 mg daily * Continue metoprolol 50 mg twice daily * Continue Brilinta and Eliquis 11/08: patient received the follow medications for control of her heart rate: metoprolol PO 25mg AM, labetolol 10mg IV AM, cardizem 15mg IV x1 AM, digoxin 125mcg PO x 1 AM, cardizem 10mg IV x 1 PM, metoprolol 50mg PO PM. Cardiac workup negative (7) Diabetes mellitus type 2 with complications Code(s): E11.8 - Type 2 diabetes mellitus with unspecified complications Status: Chronic Plan: Chronic, patient has never been on insulin at home. Will initiate low-dose sliding scale and hold metformin. (8) CKD (chronic kidney disease) stage 3, GFR 30-59 ml/min Code(s): N18.3 - Chronic kidney disease, stage 3 (moderate) Status: Chronic Plan: Baseline creatinine around 1.8, creatinine is slightly improved to 1.98 today -Monitor with daily labs given diuresis - Avoid nephrotoxic agents outside of diuretic - Renally dose medications (9) History of Clostridium difficile infection Code(s): Z86.19 - Personal history of other infectious and parasitic diseases Status: Acute Plan: Patient with formed stools on admission with diarrhea reported morning of 11/08. C diff ordered at that time but still pending. Low suspicion for C diff at this time. Continue probiotics. Notably patient completed 10 day course of PO vancomycin in October 2017 with resolution of diarrhea as outpatient (10) Nutrition, metabolism, and development symptoms Code(s): R63.8 - Other symptoms and signs concerning food and fluid intake Status: Acute Plan: Fluids: tolerating PO/gentle diuresis Electrolytes: monitor and replete as needed, reviewed Nutrition: Cardiac diet, will monitor blood sugars and transition to diabetic + heart healthy diet if needed DVT Prophylaxis: Early ambulation. Bilateral SCDs GI Prophylaxis: PPI PRN anti-HTN: Labetalol given tachycardia PRN for SBP > 160/ and/or DBP > 90 <Kylah Carter - 11/09/17 09:18> - Assessment and Plan 72-year-old female with medical history significant for COPD, atrial fibrillation, heart failure with reduced EF, and diabetes who presented with acute onset shortness of breath and admitted for management of CHF exacerbation and pneumonia. <Kylah Carter - 11/09/17 09:46> Discharge Planning: Disposition: Anticipate patient to have at least a 5-day hospitalization with likely discharge to SNF versus home with home health. Case management consulted. PT consulted and tentatively recommending home PT however this may change <Kylah Carter - 11/09/17 09:46> - Attending Attestation The exam, history, and the medical decision-making described in the above note were completed with the assistance of the resident physician. I reviewed and agree with the findings presented. I attest that I had a [id number] encounter with the patient on the same day, and personally performed and documented my assessment and findings in the medical record. She has multiple medical problems. appreciate Dr Guaman's help <Barbara Arredondo - 11/11/17 13:29> <Kylah Carter - Last Filed: 11/09/17 09:18> (3) Acute exacerbation of CHF (congestive heart failure) Qualifiers: Heart failure type: unspecified Qualified Code(s): I50.9 - Heart failure, unspecified (5) COPD (chronic obstructive pulmonary disease) Qualifiers: COPD type: COPD with acute exacerbation Qualified Code(s): J44.1 - Chronic obstructive pulmonary disease with (acute) exacerbation (7) Diabetes mellitus type 2 with complications Qualifiers: Diabetes mellitus intermediate project manager insulin use: without fci use Qualified Code (s): E11.8 - Type 2 diabetes mellitus with unspecified complications <Barbara Arredondo M - Last Filed: 11/11/17 13:29> (1) Acute exacerbation of CHF (congestive heart failure) Qualifiers: Heart failure type: unspecified Qualified Code(s): I50.9 - Heart failure, unspecified (3) Pneumonia Qualifiers: Pneumonia type: due to unspecified organism Laterality: unspecified laterality Lung location: unspecified part of lung Qualified Code(s): J18.9 - Pneumonia, unspecified organism (5) COPD (chronic obstructive pulmonary disease) Qualifiers: COPD type: COPD with acute exacerbation Qualified Code(s): J44.1 - Chronic obstructive pulmonary disease with (acute) exacerbation (7) Diabetes mellitus type 2 with complications Qualifiers: Diabetes mellitus intermediate project manager insulin use: without fci use Qualified Code (s): E11.8 - Type 2 diabetes mellitus with unspecified complications <Kylah Carter - Last Filed: 11/09/17 09:18> (3) Acute exacerbation of CHF (congestive heart failure) Qualifiers: Heart failure type: unspecified Qualified Code(s): I50.9 - Heart failure, unspecified (5) COPD (chronic obstructive pulmonary disease) Qualifiers: COPD type: COPD with acute exacerbation Qualified Code(s): J44.1 - Chronic obstructive pulmonary disease with (acute) exacerbation (7) Diabetes mellitus type 2 with complications Qualifiers: Diabetes mellitus fci insulin use: without intermediate project manager use Qualified Code (s): E11.8 - Type 2 diabetes mellitus with unspecified complications <Barbara Arredondo - Last Filed: 11/11/17 13:29> (1) Acute exacerbation of CHF (congestive heart failure) Qualifiers: Heart failure type: unspecified Qualified Code(s): I50.9 - Heart failure, unspecified (3) Pneumonia Qualifiers: Pneumonia type: due to unspecified organism Laterality: unspecified laterality Lung location: unspecified part of lung Qualified Code(s): J18.9 - Pneumonia, unspecified organism (5) COPD (chronic obstructive pulmonary disease) Qualifiers: COPD type: COPD with acute exacerbation Qualified Code(s): J44.1 - Chronic obstructive pulmonary disease with (acute) exacerbation (7) Diabetes mellitus type 2 with complications Qualifiers: Diabetes mellitus intermediate project manager insulin use: without intermediate project manager use Qualified Code (s): E11.8 - Type 2 diabetes mellitus with unspecified complications
--- NOTE | 2017-11-09 11:41 | CT ---
EXAM DATE: 11/09/2017 11:37 AM EDT AGE/SEX: 72 years / Female INDICATIONS: Altered mental status. CLINICAL DATA: This is the patient's initial encounter. Patient reports that signs and symptoms have been present for 1 day and indicates a pain score of 0/10. MEDICAL/SURGICAL HISTORY: Cardiovascular disease. Chronic obstructive pulmonary disease. Renal fa ilure, chronic. Diabetes. CABG. Hysterectomy. Intravascular stents. RADIATION DOSE: 56.35 CTDI (mGy) COMPARISON: No prior exams available for comparison. TECHNIQUE: CT of the head without contrast. Using automated exposure control and adjustment of the mA and/or kV according to patient size, radiation dose was kept as low as reasonably achievable to ob tain optimal diagnostic quality images. DICOM format image data is available electronically for revi ew and comparison. FINDINGS: Cerebrum: The ventricles are normal for age. No evidence of midline shift, mass lesion, hemorrhage or acute infarction. No extraaxial fluid collections are seen. Posterior Fossa: The cerebellum and brainstem are intact. The 4th ventricle is midline. The cerebe llopontine angle is unremarkable. Extracranial: The visualized portion of the orbits is intact. Skull: The calvaria is intact. No evidence of skull fracture. CONCLUSION: 1. Atrophy otherwise negative for acute process. Electronically signed by: Mat Franz MD 11/09/2017 11:40 AM EDT
--- NOTE | 2017-11-09 11:57 | CT ---
EXAM DATE: 11/09/2017 11:42 AM EDT AGE/SEX: 72 years / Female INDICATIONS: Shortness of breath. CLINICAL DATA: This is the patient's initial encounter. Patient reports that signs and symptoms have been present for 1 day and indicates a pain score of 3/10. MEDICAL/SURGICAL HISTORY: Cardiovascular disease. Chronic obstructive pulmonary disease. Renal fa ilure, chronic. Diabetes. CABG. Hysterectomy. Intravascular stents. RADIATION DOSE: 8.84 CTDI (mGy) COMPARISON: C, CHEST 1V SINGLE AP, 11/08/2017. . TECHNIQUE: Multiple contiguous axial images were obtained through the chest without contrast. Image s were obtained in suspended respiration using multiple row detector helical technique. Using automa adalberto exposure control and adjustment of the mA and/or kV according to patient size, radiation dose was kept as low as reasonably achievable to obtain optimal diagnostic quality images. DICOM format imag e data is available electronically for review and comparison. FINDINGS: Lungs: There are small bilateral pleural effusions, right greater than left with compressive atelect asis in both lung bases. The upper lung valle are grossly clear and well aerated. No other focal par enchymal infiltrates are demonstrated. Mediastinum: There is good visualization of the great vessels of the middle mediastinum. No evidenc e of mediastinal or hilar adenopathy/mass. Atherosclerotic changes throughout the aorta. There is [place] dence of previous cardiothoracic surgery. The heart size is enlarged. Pleurae: Small bilateral pleural effusions. Axillae: Unremarkable. Bony Structures: Primary degenerative changes. Miscellaneous: The examination was extended to include the upper abdomen, and both adrenal glands ar e normal in size and configuration. CONCLUSION: 1. Small bilateral pleural effusions with compressive atelectasis in both lung bases. 2. The upper lung valle are grossly clear. Electronically signed by: Ever Castillo MD 11/09/2017 11:56 AM EDT
[2017-11-09 15:14] LABS: Albumin 3.7 g/dL (3.4-5.0); Anion Gap 10 meq/L (5-15); Aspartate Aminotransferase 191 U/L (15-37); Blood Urea Nitrogen 49 mg/dL (7-18); Carbon Dioxide 27.2 meq/L (21.0-32.0); Chloride 102 meq/L (98-107); Glomerular Filtration Rate 21 mL/min (>89); Glucose,Random 243 mg/dL (74-106); Potassium 3.9 meq/L (3.5-5.1); Sodium 139 meq/L (136-145)
[2017-11-09 15:17] LABS: Alanine Aminotransferase 214 U/L (10-53); Alkaline Phosphatase 120 U/L (45-117); Total Protein 7.8 g/dL (6.4-8.2)
[2017-11-09] MEDS ORDERED: Vancomycin Inj 1,500 MG in Sodium Chlor 0.9% Inj 500 ML IV.SIG ONE (18:00)
[2017-11-09] MEDS ORDERED: Ibuprofen 600 MG Tablet PO ONE (23:29)
[2017-11-10] MEDS: RESP: Levalbuterol 1.25 MG/3 ML Neb (SCH) NEB ×2 (03:29→09:58)
[2017-11-10] MEDS: Chlorhexidine Gluconate 2% 1 Pack (2 Cloths) TOPICAL SCH (04:32)
[2017-11-10] MEDS: Azithromycin Inj 500 MG in Sodium Chlor 0.9% Inj 250 ML IV.SIG SCH (04:33)
[2017-11-10] MEDS: dilTIAZem 60 MG Tablet PO SCH ×4 (08:58→21:25)
[2017-11-10] MEDS: Famotidine PF Inj 20 MG/2 ML Vial IV.PUSH SCH (08:59)
[2017-11-10] MEDS: Metoprolol Tartrate 50 MG Tablet PO SCH ×2 (08:59→21:25)
[2017-11-10] MEDS ORDERED: MethylPREDNISolone Sod Succinate Inj 125 MG/2 ML Vial IV.PUSH SCH (09:00)
[2017-11-10 09:05] LABS: Hematocrit 30.6 % (35.0-46.0); Mean Corpuscular HGB Conc 32.8 % (32.0-36.0); Mean Corpuscular Hemoglobin 30.4 pg (27.0-34.0); Mean Corpuscular Volume 92.6 fL (80.0-100.0); Mean Platelet Volume 9.7 fL (7.0-11.0); Platelet Count 238 th/mm3 (150-450); Red Blood Count 3.31 mil/mm3 (4.00-5.30); Red Cell Distribution Width 17.4 % (11.6-17.2); White Blood Count 9.5 th/mm3 (4.0-11.0)
[2017-11-10 09:10] LABS: INR 1.3 Ratio; Prothrombin Time 13.4 sec (9.8-11.6)
[2017-11-10] MEDS: Insulin NovoLOG Aspart Correctional Sugar Inj SQ SCH ×4 (09:14→21:32)
[2017-11-10 09:35] LABS: Glomerular Filtration Rate 21 mL/min (>89)
--- NOTE | 2017-11-10 10:02 | P.PNFP ---
Subjective Interval history: Patient was seen and examined this morning. She had headache overnight amenable to Tylenol and reports that she like her old male without butter. She denies chest pain and shortness of breath is at baseline. She is ambulating with assistance to the bathroom. She notes her sacral area is a little tender, noting also that she has had an ulcer there in the past. <Kylah Carter - 11/10/17 10:57> Results - Labs Result diagrams: 11/11/17 06:39 11/11/17 06:39 <Barbara Arredondo - 11/11/17 13:31> Abnormal lab results 11/10/17 11/10/17 11/10/17 Range/Units 08:10 17:08 21:21 RBC (4.00-5.30) mil/mm3 Hgb (11.6-15.3) gm/dL Hct (35.0-46.0) % RDW (11.6-17.2) % Neut % (Auto) (16.0-70.0) % Lymph % (Auto) (9.0-44.0) % Neut # (Auto) (1.8-7.7) th/mm3 Lymph # (Auto) (1.0-4.8) th/mm3 BUN (7-18) mg/dL Creatinine (0.50-1.00) mg/dL Estimated GFR (>89) mL/min POC Glucose 265 H 230 H (68-110) mg/dl Random Glucose (74-106) mg/dL AST (15-37) U/L ALT (10-53) U/L B-Natriuretic Peptide 1135 H (0-100) pg/mL Albumin (3.4-5.0) g/dL 11/11/17 11/11/17 11/11/17 Range/Units 05:44 06:39 06:39 RBC 3.46 L (4.00-5.30) mil/mm3 Hgb 10.4 L (11.6-15.3) gm/dL Hct 32.1 L (35.0-46.0) % RDW 17.4 H (11.6-17.2) % Neut % (Auto) 91.4 H (16.0-70.0) % Lymph % (Auto) 4.0 L (9.0-44.0) % Neut # (Auto) 7.8 H (1.8-7.7) th/mm3 Lymph # (Auto) 0.3 L (1.0-4.8) th/mm3 BUN 59 H (7-18) mg/dL Creatinine 2.48 H (0.50-1.00) mg/dL Estimated GFR 19 L (>89) mL/min POC Glucose 174 H (68-110) mg/dl Random Glucose 156 H (74-106) mg/dL AST 72 H (15-37) U/L ALT 159 H (10-53) U/L B-Natriuretic Peptide (0-100) pg/mL Albumin 3.3 L (3.4-5.0) g/dL 11/11/17 Range/Units 12:02 RBC (4.00-5.30) mil/mm3 Hgb (11.6-15.3) gm/dL Hct (35.0-46.0) % RDW (11.6-17.2) % Neut % (Auto) (16.0-70.0) % Lymph % (Auto) (9.0-44.0) % Neut # (Auto) (1.8-7.7) th/mm3 Lymph # (Auto) (1.0-4.8) th/mm3 BUN (7-18) mg/dL Creatinine (0.50-1.00) mg/dL Estimated GFR (>89) mL/min POC Glucose 160 H (68-110) mg/dl Random Glucose (74-106) mg/dL AST (15-37) U/L ALT (10-53) U/L B-Natriuretic Peptide (0-100) pg/mL Albumin (3.4-5.0) g/dL Short CBC 11/11/17 Range/Units 06:39 WBC 8.5 (4.0-11.0) th/mm3 Hgb 10.4 L (11.6-15.3) gm/dL Hct 32.1 L (35.0-46.0) % Plt Count 250 (150-450) th/mm3 BMP 11/11/17 06:39 Sodium 142 Potassium 3.8 Chloride 105 Carbon Dioxide 27.0 BUN 59 H Creatinine 2.48 H Calcium 8.7 Liver Function 11/11/17 Range/Units 06:39 Total Bilirubin 0.7 (0.2-1.0) mg/dL AST 72 H (15-37) U/L ALT 159 H (10-53) U/L Alkaline Phosphatase 96 (45-117) U/L Albumin 3.3 L (3.4-5.0) g/dL <Barbara Arredondo - 11/11/17 13:31> Abnormal lab results 11/09/17 11/09/17 11/09/17 Range/Units 11:55 14:43 17:17 RBC (4.00-5.30) mil/mm3 Hgb (11.6-15.3) gm/dL Hct (35.0-46.0) % RDW (11.6-17.2) % PT (9.8-11.6) sec BUN 49 H (7-18) mg/dL Creatinine 2.24 H (0.50-1.00) mg/dL Estimated GFR 21 L (>89) mL/min POC Glucose 229 H 211 H (68-110) mg/dl Random Glucose 243 H (74-106) mg/dL AST 191 H (15-37) U/L ALT 214 H (10-53) U/L Alkaline Phosphatase 120 H (45-117) U/L 11/09/17 11/10/17 11/10/17 Range/Units 21:39 04:38 07:49 RBC (4.00-5.30) mil/mm3 Hgb (11.6-15.3) gm/dL Hct (35.0-46.0) % RDW (11.6-17.2) % PT (9.8-11.6) sec BUN (7-18) mg/dL Creatinine (0.50-1.00) mg/dL Estimated GFR (>89) mL/min POC Glucose 215 H 165 H 166 H (68-110) mg/dl Random Glucose (74-106) mg/dL AST (15-37) U/L ALT (10-53) U/L Alkaline Phosphatase (45-117) U/L 11/10/17 11/10/17 11/10/17 Range/Units 08:12 08:13 08:13 RBC 3.31 L (4.00-5.30) mil/mm3 Hgb 10.0 L (11.6-15.3) gm/dL Hct 30.6 L (35.0-46.0) % RDW 17.4 H (11.6-17.2) % PT 13.4 H (9.8-11.6) sec BUN (7-18) mg/dL Creatinine 2.29 H (0.50-1.00) mg/dL Estimated GFR 21 L (>89) mL/min POC Glucose (68-110) mg/dl Random Glucose (74-106) mg/dL AST (15-37) U/L ALT (10-53) U/L Alkaline Phosphatase (45-117) U/L Short CBC 11/10/17 Range/Units 08:13 WBC 9.5 (4.0-11.0) th/mm3 Hgb 10.0 L (11.6-15.3) gm/dL Hct 30.6 L (35.0-46.0) % Plt Count 238 (150-450) th/mm3 BMP 11/09/17 11/10/17 14:43 08:12 Sodium 139 Potassium 3.9 Chloride 102 Carbon Dioxide 27.2 BUN 49 H Creatinine 2.24 H 2.29 H Calcium 9.0 Liver Function 11/09/17 Range/Units 14:43 Total Bilirubin 0.6 (0.2-1.0) mg/dL Direct Bilirubin 0.2 (0.0-0.2) mg/dL AST 191 H (15-37) U/L ALT 214 H (10-53) U/L Alkaline Phosphatase 120 H (45-117) U/L Albumin 3.7 (3.4-5.0) g/dL <Kylah Carter - 11/10/17 10:02> - Imaging Impressions Chest CT 11/09/17 00:00 CONCLUSION: 1. Small bilateral pleural effusions with compressive atelectasis in both lung bases. 2. The upper lung valle are grossly clear. Head CT 11/09/17 00:00 CONCLUSION: 1. Atrophy otherwise negative for acute process. <Kylah Carter - 11/10/17 10:02> Physical Exam Vital signs: Vital Signs 11/10/17 14:00 11/10/17 15:00 11/10/17 15:42 Temperature Pulse Rate 73 74 Respiratory Rate Blood Pressure Pulse Oximetry 95 11/10/17 15:44 11/10/17 16:00 11/10/17 17:00 Temperature 97.6 F Pulse Rate 98 H 72 94 H Respiratory Rate 18 18 Blood Pressure 100/63 Pulse Oximetry 98 11/10/17 18:00 11/10/17 19:00 11/10/17 20:00 Temperature 98 F Pulse Rate 93 H 80 76 Respiratory Rate 20 Blood Pressure 119/74 Pulse Oximetry 11/10/17 21:00 11/10/17 21:12 11/10/17 22:00 Temperature Pulse Rate 74 96 H 78 Respiratory Rate 16 Blood Pressure Pulse Oximetry 11/10/17 23:00 11/11/17 00:00 11/11/17 01:00 Temperature Pulse Rate 74 75 66 Respiratory Rate Blood Pressure Pulse Oximetry 11/11/17 02:00 11/11/17 03:00 11/11/17 03:32 Temperature Pulse Rate 70 76 76 Respiratory Rate 16 Blood Pressure Pulse Oximetry 96 11/11/17 04:00 11/11/17 05:00 11/11/17 06:00 Temperature 97.9 F Pulse Rate 90 84 78 Respiratory Rate 18 Blood Pressure 133/79 Pulse Oximetry 11/11/17 07:00 11/11/17 09:37 11/11/17 11:00 Temperature 98.2 F 98.5 F Pulse Rate 97 H 84 101 H Respiratory Rate 20 18 16 Blood Pressure 131/75 136/78 Pulse Oximetry 95 96 Intake & Output 11/10/17 11/11/17 11/11/17 18:59 06:59 18:59 Intake Total 1060 / 1060 240 / 240 Output Total 750 / 750 2100 / 2100 Balance 310 / 310 -1860 / -1860 Weight 78.9 kg Intake: IV 100 / 100 Maxipime Inj 2,000 MG In NS Inj 100 / 100 100 ML @ 200 mls/hr IV.SIG Q12H MELANIE Rx#:[id number] Oral 960 / 960 240 / 240 Output: Urine 650 / 650 2000 / 2000 Urine/Stool Mix 100 / 100 100 / 100 Other: # Voids 4 4 Date of Last Bowel Movement 11/10/17 11/10/17 # Bowel Movements 2 1 <Barbara Arredondo M - 11/11/17 13:31> Vital Signs 11/09/17 10:11 11/09/17 11:00 11/09/17 12:00 Temperature 98.1 F Pulse Rate 107 H 90 93 H Respiratory Rate 18 16 Blood Pressure 109/72 Pulse Oximetry 96 11/09/17 13:00 11/09/17 14:00 11/09/17 15:00 Temperature Pulse Rate 112 H 76 96 H Respiratory Rate Blood Pressure Pulse Oximetry 11/09/17 16:00 11/09/17 16:57 11/09/17 17:00 Temperature 98.4 F Pulse Rate 82 82 90 Respiratory Rate 16 18 Blood Pressure 115/66 Pulse Oximetry 100 11/09/17 18:00 11/09/17 19:00 11/09/17 20:00 Temperature 97 F L Pulse Rate 86 86 78 Respiratory Rate 16 Blood Pressure 121/77 Pulse Oximetry 100 11/09/17 21:00 11/09/17 22:00 11/09/17 23:00 Temperature Pulse Rate 78 88 78 Respiratory Rate Blood Pressure Pulse Oximetry 11/10/17 00:00 11/10/17 01:00 11/10/17 02:00 Temperature 98.6 F Pulse Rate 72 68 85 Respiratory Rate 16 Blood Pressure 117/84 Pulse Oximetry 99 11/10/17 03:19 11/10/17 04:00 11/10/17 05:00 Temperature 98.3 F Pulse Rate 64 85 82 Respiratory Rate 18 16 Blood Pressure 109/67 Pulse Oximetry 98 11/10/17 06:00 11/10/17 07:00 11/10/17 08:00 Temperature 98.2 F Pulse Rate 88 80 94 H Respiratory Rate 18 Blood Pressure 130/75 Pulse Oximetry 97 Intake & Output 11/09/17 11/10/17 11/10/17 18:59 06:59 18:59 Intake Total 780 / 780 350 / 350 Output Total 450 / 450 700 / 700 Balance 330 / 330 -350 / -350 Weight 84.3 kg Intake: IV 100 / 100 350 / 350 Azithromycin Inj 500 MG In NS 250 / 250 Inj 250 ML @ 250 mls/hr IV.SIG Q24H MELANIE Rx#:[id number] Maxipime Inj 2,000 MG In NS Inj 100 / 100 100 / 100 100 ML @ 200 mls/hr IV.SIG Q12H MELANIE Rx#:[id number] Oral 680 / 680 Output: Urine 450 / 450 700 / 700 Other: # Voids 2 Date of Last Bowel Movement 11/09/17 11/09/17 11/09/17 # Bowel Movements 2 <Kylah Carter - 11/10/17 10:02> Narrative: GENERAL: Elderly female on 3L nasal cannula with normal saturations. She is sitting up in bed eating breakfast. She looks well-rested today. SKIN: Bruising on upper extremities. Cool and dry. HEAD: Atraumatic. Normocephalic. No temporal or scalp tenderness. NECK: Trachea midline. No JVD or lymphadenopathy. CARDIOVASCULAR: Irregular rate and rhythm without murmurs, gallops, or rubs. Heart rate 100-110s on monitor. 1+ lower extremity edema noted. RESPIRATORY: No increased work of breathing. RR ~16. Reduced air movement and breath sounds diminished bilaterally with bilateral intermittent crackles especially at lung bases. GASTROINTESTINAL: Abdomen soft, non-tender, nondistended. Normal bowel sounds. MUSCULOSKELETAL: Extremities cool and dry without clubbing, cyanosis. SACRUM: erythema noted at sacrum with 1/5 cm superficial opening of the skin which is not draining and appears noninfected. PSYCHIATRIC: Appropriate mood and affect; insight and judgment normal. NEURO: alert and oriented x 3. No focal neurological deficit. Normal extremity sensation, ROM, and strength. <Kylah Carter - 11/10/17 10:57> Assessment and Plan - Assessment (1) Acute exacerbation of CHF (congestive heart failure) Code(s): I50.9 - Heart failure, unspecified Status: Acute (2) Sepsis due to pneumonia Code(s): J18.9 - Pneumonia, unspecified organism; A41.9 - Sepsis, unspecified organism Status: Resolved (3) Pneumonia Code(s): J18.9 - Pneumonia, unspecified organism Status: Resolved (4) Altered mental status, unspecified Code(s): R41.82 - Altered mental status, unspecified Status: Resolved (5) COPD (chronic obstructive pulmonary disease) Code(s): J44.9 - Chronic obstructive pulmonary disease, unspecified Status: Chronic (6) Atrial fibrillation Code(s): I48.91 - Unspecified atrial fibrillation Status: Chronic (7) Diabetes mellitus type 2 with complications Code(s): E11.8 - Type 2 diabetes mellitus with unspecified complications Status: Chronic (8) CKD (chronic kidney disease) stage 3, GFR 30-59 ml/min Code(s): N18.3 - Chronic kidney disease, stage 3 (moderate) Status: Chronic (9) History of Clostridium difficile infection Code(s): Z86.19 - Personal history of other infectious and parasitic diseases Status: Acute (10) Nutrition, metabolism, and development symptoms Code(s): R63.8 - Other symptoms and signs concerning food and fluid intake Status: Acute <Barbara Arredondo - 11/11/17 13:31> (1) Sepsis due to pneumonia Code(s): J18.9 - Pneumonia, unspecified organism; A41.9 - Sepsis, unspecified organism Status: Acute Plan: Patient is no longer meeting sepsis criteria. Continue to manage pneumonia as noted. She requires close monitoring given history of intubation. Currently on nasal cannula not requiring any further interventions. Nasal cannula 2L/hr O2 at baseline. Add incentive spirometry today. Will continue ipratropium and Xopenex every 8 hours scheduled at this time Impression/Course: Patient is noted to meet sepsis criteria on 11/08 given lactic acid 2.1, leukocytosis of 13.3, respiratory rate 20, suspected source pneumonia. She also does notably have chronic kidney disease thus creatinine is greater than 2 however this is likely related to Lasix diuresis rather than sepsis. * Treating for HCAP with broad coverage as noted * Lactic acid sepsis protocol was ordered, repeat lactic acid per protocol, 2.1- ->2.0 * Repeat blood cultures will be ordered if patient continues to decompensate, blood cultures from 11/06 no growth to date * Sputum cultures ordered and pending * Continue respiratory support as noted (2) Acute exacerbation of CHF (congestive heart failure) Code(s): I50.9 - Heart failure, unspecified Status: Acute Plan: Plan: Continue gentle diuresis, will transition to p.o. Lasix 40 twice daily today. Creatinine stable today. UOP adequate 0.57cc/kg/hr documented Hospital Course: CHF with Echo September 2017 showing EF of 35-40%, on 11/08 showing EF 30-35% Patient has been diuresing well IV to PO 11/07 with worsening lung exam and symptoms overnight PO to IV transition 11/08. Had 20mg IV Lasix at 4am, repeat 20mg IV Lasix this morning x 1 and then 40 mg IV twice daily IV to PO 11/10 afternoon planned BNP 778 on 11/08, was in 1000s on admission, repeat on 11/10 Continue to monitor I's and O's and daily weights Continue fluid restriction and heart healthy, low-salt diet Continue supplemental oxygen as needed, patient is on 2 L nasal cannula at home BiPAP not tolerated, pt to have progression of respiratory support if needed, is full code (3) Pneumonia Code(s): J18.9 - Pneumonia, unspecified organism Status: Acute Plan: CXR worsening 11/08, CT chest showing bilateral effusion with no obvious infiltrate. Patient producing yellow-green sputum with culture pending. Antibiotics broadened 11/08 to Vancomycin (11/08- current), Cefepime (11/08 - current ) and Azithromycin (11/06 - current). She had two doses of Rocephin as well (11/06-). Hospital Course: CXR 11/06 showing diffuse interstitial come opacities, possible pneumonia. CXR 11/08 showing possible worsening infiltrates CT chest 11/09 showing bilateral effusion with no obvious infiltrate. -Patient has been afebrile -White count 9.5 on 11/10 Antibiotics with Rocephin and azithromycin initiated 11/06 on admission - Monitor pulse oximetry and supplemental oxygen as needed - Duo nebs as needed - Blood cultures are NGTD from admission date (4) Altered mental status, unspecified Code(s): R41.82 - Altered mental status, unspecified Status: Resolved Plan: Resolved. CT head was unremarkable. Avoid sedating medications and other medications leading to risk of altered mental status Hospital Course: On 11/08 early AM patient was noted to have AMS. ABG showing pH 7.468, Co2 33, pO2 69.3 on 4L NC. She is noted to have EKG with afib, unchanged, and normal cardiac enzymes. CXR showing possible worsening infiltrate vs fluid. CT head ordered. Restoril was discontinued after one dose 11/07 PM. * Workup as above * Pt received Lasix 20mg IV x 1, continued diuresis as otherwise noted * CT head ordered and pending * Lactic acid ordered, 2.1 * BiPap - patient anxious regarding wearing the mask. ABG overall unremarkable however patient is high risk for decompensation based on her history. Patient clinically with picture concerning for worsening Pneumonia. Broadened antibiotics to Vancomycin, Cefepime and Azithromycin. * Low threshold for transfer if continuing to worsen * Continue morphine IV for decreased anxiety on Bipap if CT wnl and patient confusion resolves (5) COPD (chronic obstructive pulmonary disease) Code(s): J44.9 - Chronic obstructive pulmonary disease, unspecified Status: Chronic Plan: Continue Solumedrol 60mg IV today, Pulmonology consulted, appreciate recs. Frequency decreased to once daily today Hospital Course: Patient with history of COPD with clinical worsening characterized by shortness of breath and altered mental status overnight on 11/08. The patient initially did not meet criteria suggestive of COPD exacerbation, however clinical decline led to broadening antibiotics as noted and initiating Solu-Medrol 60 mg IV every 8 hours on 11/08. CT chest showing small bilateral pleural effusions with no evidence of infiltrates, compressive atelectasis in both lung bases, clear upper lung valle (6) Atrial fibrillation Code(s): I48.91 - Unspecified atrial fibrillation Status: Chronic Plan: Hemodynamically stable. Heart rate in the 80s this morning, range 80s-100s over last 24hr. Has been better controlled since 11/09. Will continue Cardizem 60 mg PO every 6 hours at this time and consider q4hr dosing if needed. Metoprolol 50mg q12hr PO to continue. Impression/Hospital Course: History of atrial fibrillation with fluctuating heart rates in the 100s-150s * Continue to monitor on telemetry * ACS rule out has been performed, troponins negative 3 with repeat troponin 11/08 negative * Increase Cardizem from 240 mg daily to 300 mg daily * Continue metoprolol 50 mg twice daily * Continue Brilinta and Eliquis 11/08: patient received the follow medications for control of her heart rate: metoprolol PO 25mg AM, labetolol 10mg IV AM, cardizem 15mg IV x1 AM, digoxin 125mcg PO x 1 AM, cardizem 10mg IV x 1 PM, metoprolol 50mg PO PM. Cardiac workup negative. Metoprolol was increased to 50mg PO BID on 11/08, to continue for now as long as BP tolerates this (7) Diabetes mellitus type 2 with complications Code(s): E11.8 - Type 2 diabetes mellitus with unspecified complications Status: Chronic Plan: Chronic, patient has never been on insulin at home. Low-dose sliding scale NovoLog ordered. Patient has required ~10 correction units of NovoLog over the last 24 hours. Steroids for COPD likely playing a role. We will continue to monitor closely and transition to a lower dose of steroids as tolerated (8) CKD (chronic kidney disease) stage 3, GFR 30-59 ml/min Code(s): N18.3 - Chronic kidney disease, stage 3 (moderate) Status: Chronic Plan: Baseline creatinine around 1.8, creatinine is slightly elevated today -Monitor with daily labs given diuresis - Avoid nephrotoxic agents outside of diuretic - Renally dose medications (9) History of Clostridium difficile infection Code(s): Z86.19 - Personal history of other infectious and parasitic diseases Status: Acute Plan: Patient with formed stools on admission with diarrhea reported morning of 11/08. C diff ordered at that time but still pending. Low suspicion for C diff at this time. Continue probiotics. Notably patient completed 10 day course of PO vancomycin in October 2017 with resolution of diarrhea as outpatient (10) Nutrition, metabolism, and development symptoms Code(s): R63.8 - Other symptoms and signs concerning food and fluid intake Status: Acute Plan: Fluids: tolerating PO/gentle diuresis Electrolytes: monitor and replete as needed, reviewed Nutrition: Cardiac diet, will monitor blood sugars and transition to diabetic + heart healthy diet if needed DVT Prophylaxis: Early ambulation. Bilateral SCDs GI Prophylaxis: PPI PRN anti-HTN: Labetalol given tachycardia PRN for SBP > 160/ and/or DBP > 90 <Kylah Carter - 11/10/17 10:59> - Assessment and Plan 72-year-old female with medical history significant for COPD, atrial fibrillation, heart failure with reduced EF, and diabetes who presented with acute onset shortness of breath and admitted for management of CHF exacerbation and pneumonia. <Kylah Carter - 11/10/17 10:02> Discharge Planning: Disposition: Anticipate patient to have at least a 5-day hospitalization with likely discharge to SNF versus home with home health. Case management consulted. PT consulted and tentatively recommending home PT however this may change <Kylah Carter - 11/10/17 10:02> - Attending Attestation The exam, history, and the medical decision-making described in the above note were completed with the assistance of the resident physician. I reviewed and agree with the findings presented. I attest that I had a [id number] encounter with the patient on the same day, and personally performed and documented my assessment and findings in the medical record. her heart rate is better controlled and she is having clinical improvement <ArnulfoBarbara Amanda - 11/11/17 13:31> <Kylah Carter - Last Filed: 11/10/17 10:59> (2) Acute exacerbation of CHF (congestive heart failure) Qualifiers: Heart failure type: unspecified Qualified Code(s): I50.9 - Heart failure, unspecified (3) Pneumonia Qualifiers: Pneumonia type: due to unspecified organism Laterality: unspecified laterality Lung location: unspecified part of lung Qualified Code(s): J18.9 - Pneumonia, unspecified organism (5) COPD (chronic obstructive pulmonary disease) Qualifiers: COPD type: COPD with acute exacerbation Qualified Code(s): J44.1 - Chronic obstructive pulmonary disease with (acute) exacerbation (7) Diabetes mellitus type 2 with complications Qualifiers: Diabetes mellitus meterman insulin use: without meterman use Qualified Code (s): E11.8 - Type 2 diabetes mellitus with unspecified complications <ArnulfoCamachoBarbara Amanda - Last Filed: 11/11/17 13:31> (1) Acute exacerbation of CHF (congestive heart failure) Qualifiers: Heart failure type: unspecified Qualified Code(s): I50.9 - Heart failure, unspecified (3) Pneumonia Qualifiers: Pneumonia type: due to unspecified organism Laterality: unspecified laterality Lung location: unspecified part of lung Qualified Code(s): J18.9 - Pneumonia, unspecified organism (5) COPD (chronic obstructive pulmonary disease) Qualifiers: COPD type: COPD with acute exacerbation Qualified Code(s): J44.1 - Chronic obstructive pulmonary disease with (acute) exacerbation (7) Diabetes mellitus type 2 with complications Qualifiers: Diabetes mellitus meterman insulin use: without detention use Qualified Code (s): E11.8 - Type 2 diabetes mellitus with unspecified complications <Kylah Carter - Last Filed: 11/10/17 10:59> (2) Acute exacerbation of CHF (congestive heart failure) Qualifiers: Heart failure type: unspecified Qualified Code(s): I50.9 - Heart failure, unspecified (3) Pneumonia Qualifiers: Pneumonia type: due to unspecified organism Laterality: unspecified laterality Lung location: unspecified part of lung Qualified Code(s): J18.9 - Pneumonia, unspecified organism (5) COPD (chronic obstructive pulmonary disease) Qualifiers: COPD type: COPD with acute exacerbation Qualified Code(s): J44.1 - Chronic obstructive pulmonary disease with (acute) exacerbation (7) Diabetes mellitus type 2 with complications Qualifiers: Diabetes mellitus detention insulin use: without meterman use Qualified Code (s): E11.8 - Type 2 diabetes mellitus with unspecified complications <Barbara Arredondo - Last Filed: 11/11/17 13:31> (1) Acute exacerbation of CHF (congestive heart failure) Qualifiers: Heart failure type: unspecified Qualified Code(s): I50.9 - Heart failure, unspecified (3) Pneumonia Qualifiers: Pneumonia type: due to unspecified organism Laterality: unspecified laterality Lung location: unspecified part of lung Qualified Code(s): J18.9 - Pneumonia, unspecified organism (5) COPD (chronic obstructive pulmonary disease) Qualifiers: COPD type: COPD with acute exacerbation Qualified Code(s): J44.1 - Chronic obstructive pulmonary disease with (acute) exacerbation (7) Diabetes mellitus type 2 with complications Qualifiers: Diabetes mellitus meterman insulin use: without detention use Qualified Code (s): E11.8 - Type 2 diabetes mellitus with unspecified complications
[2017-11-10 12:48] LABS: Alanine Aminotransferase 170 U/L (10-53); Albumin 3.4 g/dL (3.4-5.0); Anion Gap 12 meq/L (5-15); Aspartate Aminotransferase 95 U/L (15-37); Blood Urea Nitrogen 54 mg/dL (7-18); Calcium 8.6 mg/dL (8.5-10.1); Carbon Dioxide 22.6 meq/L (21.0-32.0); Chloride 106 meq/L (98-107); Glucose,Random 156 mg/dL (74-106); Potassium 4.4 meq/L (3.5-5.1); Sodium 141 meq/L (136-145)
[2017-11-10 12:50] LABS: Alkaline Phosphatase 97 U/L (45-117); Total Protein 6.9 g/dL (6.4-8.2)
[2017-11-10] MEDS: Furosemide 40 MG Tablet PO SCH (17:22)
--- NOTE | 2017-11-10 18:42 | P.PNWCN ---
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 Leave open to air. Please use disposable ultrasorb underpad in place of cotton underpad with mixed etiology (pressure and moisture) wound. Encourage patient to lie on her right and left sides only with limited time spent on her back. Additional information: Patient seen on [facility] for sacral wound. 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 Patient states that her wound began on September 24 and is almost healed. Brief was removed from patient and it was explained to her that the brief was breaking down from moisture. Bilateral buttocks, sacrum, coccyx, and gluteal cleft were visualized. There is a scab noted at the top of the gluteal cleft (sacrum)with an opening measuring ~0.1cm with 100% red non granulating tissue noted in the wound bed with no drainage and no odor present. The wound was described to the patient with recommendations for Calazime (orange top) to be applied and left open to air. It was explained to the patient that briefs only hold in moisture, as well as the cotton underpad she was laying on. Patient states understanding. Recommendations were made for her to spend less time on her back (patient states that she sleeps on her back) and use of ultrasorb disposable underpad in place of the current cotton pad. Patient was encouraged to lie on her sides and to leave the wound open to air. Wound/Pressure Injury - Patient Status Premedicated for Pain Prior to Dressing Change: No - Wound Coccyx Wound Staging: Stage II Wound Assessment: Ongoing Wound Type: Pressure Injury Is This a Chronic Wound: Yes Length: 0.1 Width: 0.1 Depth: 0.1 Wound Bed Appearance: Red Surrounding Tissue Appearance: Erythema Surrounding Tissue Temperature: Warm Drainage Amount: None Drainage Odor: No Odor Dressing Status: Open to Air Topical: barrier cream (Calazime)
[2017-11-11 08:12] LABS: Baso % (Auto) 0.1 % (0.0-2.0); Hematocrit 32.1 % (35.0-46.0); Hemoglobin 10.4 gm/dL (11.6-15.3); Lymph # (Auto) 0.3 th/mm3 (1.0-4.8); Mean Corpuscular HGB Conc 32.3 % (32.0-36.0); Mean Corpuscular Volume 92.8 fL (80.0-100.0); Mean Platelet Volume 9.4 fL (7.0-11.0); Mono # (Auto) 0.4 th/mm3 (0.0-0.9); Mono % (Auto) 4.5 % (0.0-8.0); Neut # (Auto) 7.8 th/mm3 (1.8-7.7); Neut % (Auto) 91.4 % (16.0-70.0); Platelet Count 250 th/mm3 (150-450); Red Blood Count 3.46 mil/mm3 (4.00-5.30); Red Cell Distribution Width 17.4 % (11.6-17.2); White Blood Count 8.5 th/mm3 (4.0-11.0)
[2017-11-11 08:37] LABS: Albumin 3.3 g/dL (3.4-5.0); Anion Gap 10 meq/L (5-15); Aspartate Aminotransferase 72 U/L (15-37); Blood Urea Nitrogen 59 mg/dL (7-18); Calcium 8.7 mg/dL (8.5-10.1); Chloride 105 meq/L (98-107); Glomerular Filtration Rate 19 mL/min (>89); Glucose,Random 156 mg/dL (74-106); Potassium 3.8 meq/L (3.5-5.1); Sodium 142 meq/L (136-145)
[2017-11-11 08:40] LABS: Alanine Aminotransferase 159 U/L (10-53); Alkaline Phosphatase 96 U/L (45-117); Total Protein 6.8 g/dL (6.4-8.2); Vancomycin,Random 24.9 Comment
[2017-11-11] MEDS: Furosemide 40 MG Tablet PO SCH ×2 (10:22→18:52)
[2017-11-11] MEDS: Metoprolol Tartrate 50 MG Tablet PO SCH ×2 (10:22→20:24)
[2017-11-11] MEDS: predniSONE 20 MG Tablet PO SCH (10:22)
[2017-11-11] MEDS: dilTIAZem 60 MG Tablet PO SCH ×4 (10:22→20:24)
[2017-11-11] MEDS: Insulin NovoLOG Aspart Correctional Sugar Inj SQ SCH ×4 (10:23→20:22)
--- NOTE | 2017-11-11 10:47 | P.PNFP ---
Subjective Interval history: Patient was seen and examined this morning. She is sitting on room air in no apparent distress. She discusses that her shortness of breath persists however. She denies chest pain, abdominal pain, nausea, vomiting. She does continue to have loose stools with C. difficile negative, discussed with her. She states her main concern at this point is that she is tired and feels uncomfortable going home without assistance. <RaulKylah L - 11/11/17 10:47> Results - Labs Result diagrams: 11/11/17 06:39 11/11/17 06:39 <Barbara Arredondo M - 11/11/17 13:34> Abnormal lab results 11/10/17 11/10/17 11/11/17 Range/Units 17:08 21:21 05:44 RBC (4.00-5.30) mil/mm3 Hgb (11.6-15.3) gm/dL Hct (35.0-46.0) % RDW (11.6-17.2) % Neut % (Auto) (16.0-70.0) % Lymph % (Auto) (9.0-44.0) % Neut # (Auto) (1.8-7.7) th/mm3 Lymph # (Auto) (1.0-4.8) th/mm3 BUN (7-18) mg/dL Creatinine (0.50-1.00) mg/dL Estimated GFR (>89) mL/min POC Glucose 265 H 230 H 174 H (68-110) mg/dl Random Glucose (74-106) mg/dL AST (15-37) U/L ALT (10-53) U/L Albumin (3.4-5.0) g/dL 11/11/17 11/11/17 11/11/17 Range/Units 06:39 06:39 12:02 RBC 3.46 L (4.00-5.30) mil/mm3 Hgb 10.4 L (11.6-15.3) gm/dL Hct 32.1 L (35.0-46.0) % RDW 17.4 H (11.6-17.2) % Neut % (Auto) 91.4 H (16.0-70.0) % Lymph % (Auto) 4.0 L (9.0-44.0) % Neut # (Auto) 7.8 H (1.8-7.7) th/mm3 Lymph # (Auto) 0.3 L (1.0-4.8) th/mm3 BUN 59 H (7-18) mg/dL Creatinine 2.48 H (0.50-1.00) mg/dL Estimated GFR 19 L (>89) mL/min POC Glucose 160 H (68-110) mg/dl Random Glucose 156 H (74-106) mg/dL AST 72 H (15-37) U/L ALT 159 H (10-53) U/L Albumin 3.3 L (3.4-5.0) g/dL Short CBC 11/11/17 Range/Units 06:39 WBC 8.5 (4.0-11.0) th/mm3 Hgb 10.4 L (11.6-15.3) gm/dL Hct 32.1 L (35.0-46.0) % Plt Count 250 (150-450) th/mm3 BMP 11/11/17 06:39 Sodium 142 Potassium 3.8 Chloride 105 Carbon Dioxide 27.0 BUN 59 H Creatinine 2.48 H Calcium 8.7 Liver Function 11/11/17 Range/Units 06:39 Total Bilirubin 0.7 (0.2-1.0) mg/dL AST 72 H (15-37) U/L ALT 159 H (10-53) U/L Alkaline Phosphatase 96 (45-117) U/L Albumin 3.3 L (3.4-5.0) g/dL <Barbara Arredondo - 11/11/17 13:34> Abnormal lab results 11/10/17 11/10/17 11/10/17 Range/Units 08:10 08:12 11:35 RBC (4.00-5.30) mil/mm3 Hgb (11.6-15.3) gm/dL Hct (35.0-46.0) % RDW (11.6-17.2) % Neut % (Auto) (16.0-70.0) % Lymph % (Auto) (9.0-44.0) % Neut # (Auto) (1.8-7.7) th/mm3 Lymph # (Auto) (1.0-4.8) th/mm3 BUN 54 H (7-18) mg/dL Creatinine 2.29 H (0.50-1.00) mg/dL Estimated GFR 21 L (>89) mL/min POC Glucose 152 H (68-110) mg/dl Random Glucose 156 H (74-106) mg/dL AST 95 H (15-37) U/L ALT 170 H (10-53) U/L B-Natriuretic Peptide 1135 H (0-100) pg/mL Albumin (3.4-5.0) g/dL 11/10/17 11/10/17 11/11/17 Range/Units 17:08 21:21 05:44 RBC (4.00-5.30) mil/mm3 Hgb (11.6-15.3) gm/dL Hct (35.0-46.0) % RDW (11.6-17.2) % Neut % (Auto) (16.0-70.0) % Lymph % (Auto) (9.0-44.0) % Neut # (Auto) (1.8-7.7) th/mm3 Lymph # (Auto) (1.0-4.8) th/mm3 BUN (7-18) mg/dL Creatinine (0.50-1.00) mg/dL Estimated GFR (>89) mL/min POC Glucose 265 H 230 H 174 H (68-110) mg/dl Random Glucose (74-106) mg/dL AST (15-37) U/L ALT (10-53) U/L B-Natriuretic Peptide (0-100) pg/mL Albumin (3.4-5.0) g/dL 11/11/17 11/11/17 Range/Units 06:39 06:39 RBC 3.46 L (4.00-5.30) mil/mm3 Hgb 10.4 L (11.6-15.3) gm/dL Hct 32.1 L (35.0-46.0) % RDW 17.4 H (11.6-17.2) % Neut % (Auto) 91.4 H (16.0-70.0) % Lymph % (Auto) 4.0 L (9.0-44.0) % Neut # (Auto) 7.8 H (1.8-7.7) th/mm3 Lymph # (Auto) 0.3 L (1.0-4.8) th/mm3 BUN 59 H (7-18) mg/dL Creatinine 2.48 H (0.50-1.00) mg/dL Estimated GFR 19 L (>89) mL/min POC Glucose (68-110) mg/dl Random Glucose 156 H (74-106) mg/dL AST 72 H (15-37) U/L ALT 159 H (10-53) U/L B-Natriuretic Peptide (0-100) pg/mL Albumin 3.3 L (3.4-5.0) g/dL Short CBC 11/11/17 Range/Units 06:39 WBC 8.5 (4.0-11.0) th/mm3 Hgb 10.4 L (11.6-15.3) gm/dL Hct 32.1 L (35.0-46.0) % Plt Count 250 (150-450) th/mm3 BMP 11/10/17 11/10/17 11/11/17 08:10 08:12 06:39 Sodium Cancelled 141 142 Potassium Cancelled 4.4 3.8 Chloride Cancelled 106 105 Carbon Dioxide Cancelled 22.6 27.0 BUN Cancelled 54 H 59 H Creatinine Cancelled 2.29 H 2.48 H Calcium Cancelled 8.6 8.7 Liver Function 11/10/17 11/10/17 11/11/17 Range/Units 08:10 08:12 06:39 Total Bilirubin Cancelled 0.5 0.7 AST Cancelled 95 H 72 H ALT Cancelled 170 H 159 H Alkaline Phosphatase Cancelled 97 96 Albumin Cancelled 3.4 3.3 L <Kylah Carter L - 11/11/17 10:47> Physical Exam Vital signs: Vital Signs 11/10/17 14:00 11/10/17 15:00 11/10/17 15:42 Temperature Pulse Rate 73 74 Respiratory Rate Blood Pressure Pulse Oximetry 95 11/10/17 15:44 11/10/17 16:00 11/10/17 17:00 Temperature 97.6 F Pulse Rate 98 H 72 94 H Respiratory Rate 18 18 Blood Pressure 100/63 Pulse Oximetry 98 11/10/17 18:00 11/10/17 19:00 11/10/17 20:00 Temperature 98 F Pulse Rate 93 H 80 76 Respiratory Rate 20 Blood Pressure 119/74 Pulse Oximetry 07/10/18 21:00 11/10/17 21:12 11/10/17 22:00 Temperature Pulse Rate 74 96 H 78 Respiratory Rate 16 Blood Pressure Pulse Oximetry 11/10/17 23:00 11/11/17 00:00 11/11/17 01:00 Temperature Pulse Rate 74 75 66 Respiratory Rate Blood Pressure Pulse Oximetry 11/11/17 02:00 11/11/17 03:00 11/11/17 03:32 Temperature Pulse Rate 70 76 76 Respiratory Rate 16 Blood Pressure Pulse Oximetry 96 11/11/17 04:00 11/11/17 05:00 11/11/17 06:00 Temperature 97.9 F Pulse Rate 90 84 78 Respiratory Rate 18 Blood Pressure 133/79 Pulse Oximetry 11/11/17 07:00 11/11/17 09:37 11/11/17 11:00 Temperature 98.2 F 98.5 F Pulse Rate 97 H 84 101 H Respiratory Rate 20 18 16 Blood Pressure 131/75 136/78 Pulse Oximetry 95 96 Intake & Output 11/10/17 11/11/17 11/11/17 18:59 06:59 18:59 Intake Total 1060 / 1060 240 / 240 Output Total 750 / 750 2100 / 2100 Balance 310 / 310 -1860 / -1860 Weight 78.9 kg Intake: IV 100 / 100 Maxipime Inj 2,000 MG In NS Inj 100 / 100 100 ML @ 200 mls/hr IV.SIG Q12H [facility] Rx#:[id number] Oral 960 / 960 240 / 240 Output: Urine 650 / 650 2000 / 2000 Urine/Stool Mix 100 / 100 100 / 100 Other: # Voids 4 4 Date of Last Bowel Movement 11/10/17 11/10/17 # Bowel Movements 2 1 <Barbara Arredondo M - 11/11/17 13:34> Vital Signs 11/10/17 11:00 11/10/17 12:00 11/10/17 13:00 Temperature 98.2 F Pulse Rate 82 76 72 Respiratory Rate 18 Blood Pressure 121/80 Pulse Oximetry 97 11/10/17 14:00 11/10/17 15:00 11/10/17 15:42 Temperature Pulse Rate 73 74 Respiratory Rate Blood Pressure Pulse Oximetry 95 11/10/17 15:44 11/10/17 16:00 11/10/17 17:00 Temperature 97.6 F Pulse Rate 98 H 72 94 H Respiratory Rate 18 18 Blood Pressure 100/63 Pulse Oximetry 98 11/10/17 18:00 11/10/17 19:00 11/10/17 20:00 Temperature 98 F Pulse Rate 93 H 80 76 Respiratory Rate 20 Blood Pressure 119/74 Pulse Oximetry 11/10/17 21:00 11/10/17 21:12 11/10/17 22:00 Temperature Pulse Rate 74 96 H 78 Respiratory Rate 16 Blood Pressure Pulse Oximetry 11/10/17 23:00 11/11/17 00:00 11/11/17 01:00 Temperature Pulse Rate 74 75 66 Respiratory Rate Blood Pressure Pulse Oximetry 11/11/17 02:00 11/11/17 03:00 11/11/17 03:32 Temperature Pulse Rate 70 76 76 Respiratory Rate 16 Blood Pressure Pulse Oximetry 96 11/11/17 04:00 11/11/17 05:00 11/11/17 06:00 Temperature 97.9 F Pulse Rate 90 84 78 Respiratory Rate 18 Blood Pressure 133/79 Pulse Oximetry 11/11/17 07:00 11/11/17 09:37 Temperature 98.2 F Pulse Rate 97 H 84 Respiratory Rate 20 18 Blood Pressure 131/75 Pulse Oximetry 95 96 Intake & Output 11/10/17 11/11/17 11/11/17 18:59 06:59 18:59 Intake Total 1060 / 1060 240 / 240 Output Total 750 / 750 2100 / 2100 Balance 310 / 310 -1860 / -1860 Weight 78.9 kg Intake: IV 100 / 100 Maxipime Inj 2,000 MG In NS Inj 100 / 100 100 ML @ 200 mls/hr IV.SIG Q12H [facility] Rx#:[id number] Oral 960 / 960 240 / 240 Output: Urine 650 / 650 2000 / 2000 Urine/Stool Mix 100 / 100 100 / 100 Other: # Voids 4 4 Date of Last Bowel Movement 11/10/17 11/10/17 # Bowel Movements 2 1 <Kylah Carter - 11/11/17 10:47> Narrative: GENERAL: Elderly female on on room air. She is in no apparent distress. SKIN: Bruising on upper extremities. Cool and dry. HEAD: Atraumatic. Normocephalic. No temporal or scalp tenderness. NECK: Trachea midline. No JVD or lymphadenopathy. CARDIOVASCULAR: Irregular rate and rhythm without murmurs, gallops, or rubs. Heart rate 90s on monitor. 1+ lower extremity edema noted. RESPIRATORY: No increased work of breathing. RR ~18. Air movement has improved since yesterday's exam with persistent mild bilateral basal crackles. GASTROINTESTINAL: Abdomen soft, non-tender, nondistended. Normal bowel sounds. MUSCULOSKELETAL: Extremities cool and dry without clubbing, cyanosis. SACRUM: erythema noted at sacrum with 1/5 cm superficial opening of the skin which is not draining and appears noninfected. PSYCHIATRIC: Appropriate mood and affect; insight and judgment normal. NEURO: alert and oriented x 3. No focal neurological deficit. Normal extremity sensation, ROM, and strength. <Kylah Carter - 11/11/17 10:47> Assessment and Plan - Assessment (1) Acute exacerbation of CHF (congestive heart failure) Code(s): I50.9 - Heart failure, unspecified Status: Acute (2) Sepsis due to pneumonia Code(s): J18.9 - Pneumonia, unspecified organism; A41.9 - Sepsis, unspecified organism Status: Resolved (3) Pneumonia Code(s): J18.9 - Pneumonia, unspecified organism Status: Resolved (4) Altered mental status, unspecified Code(s): R41.82 - Altered mental status, unspecified Status: Resolved (5) COPD (chronic obstructive pulmonary disease) Code(s): J44.9 - Chronic obstructive pulmonary disease, unspecified Status: Chronic (6) Atrial fibrillation Code(s): I48.91 - Unspecified atrial fibrillation Status: Chronic (7) Diabetes mellitus type 2 with complications Code(s): E11.8 - Type 2 diabetes mellitus with unspecified complications Status: Chronic (8) CKD (chronic kidney disease) stage 3, GFR 30-59 ml/min Code(s): N18.3 - Chronic kidney disease, stage 3 (moderate) Status: Chronic (9) History of Clostridium difficile infection Code(s): Z86.19 - Personal history of other infectious and parasitic diseases Status: Acute (10) Nutrition, metabolism, and development symptoms Code(s): R63.8 - Other symptoms and signs concerning food and fluid intake Status: Acute <Barbara Arredondo - 11/11/17 13:34> (1) Acute exacerbation of CHF (congestive heart failure) Code(s): I50.9 - Heart failure, unspecified Status: Acute Plan: Plan: Continue gentle diuresis, patient tolerating transition to p.o. Lasix twice daily 40 mg. Creatinine slightly increased today. UOP adequate. Patient is on beta-rob may benefit from spironolactone and ACEI given NYHA class III , AHA Stage C. 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 Hospital Course: CHF with Echo September 2017 showing EF of 35-40%, on 11/08 showing EF 30-35% Patient has been diuresing well IV to PO 11/07 with worsening lung exam and symptoms overnight PO to IV transition 11/08. Had 20mg IV Lasix at 4am, repeat 20mg IV Lasix this morning x 1 and then 40 mg IV twice daily IV to PO 11/10 afternoon BNP 778 on 11/08, was in 1000s on admission, repeat on 11/10 1100, but patient symptoms have improved Continue to monitor I's and O's and daily weights Continue fluid restriction and heart healthy, low-salt diet Continue supplemental oxygen as needed, patient is on 2 L nasal cannula at home BiPAP not tolerated, pt to have progression of respiratory support if needed, is full code (2) Sepsis due to pneumonia Code(s): J18.9 - Pneumonia, unspecified organism; A41.9 - Sepsis, unspecified organism Status: Resolved Plan: Resolved, on room air to 2 L baseline at this point antibiotics discontinued per pulmonology. We will continue to monitor closely. Impression/Course: Patient is noted to meet sepsis criteria on 11/08 given lactic acid 2.1, leukocytosis of 13.3, respiratory rate 20, suspected source pneumonia. She also does notably have chronic kidney disease thus creatinine is greater than 2 however this is likely related to Lasix diuresis rather than sepsis. * Treating for HCAP with broad coverage as noted * Lactic acid sepsis protocol was ordered, repeat lactic acid per protocol, 2.1 --> 2.0 * Repeat blood cultures will be ordered if patient continues to decompensate, blood cultures from 11/06 no growth to date * Sputum cultures ordered and pending * Continue respiratory support as noted (3) Pneumonia Code(s): J18.9 - Pneumonia, unspecified organism Status: Resolved Plan: Resolved, on room air to 2 L baseline at this point antibiotics discontinued per pulmonology. We will continue to monitor closely. Hospital Course: CXR 11/06 showing diffuse interstitial come opacities, possible pneumonia. CXR 11/08 showing possible worsening infiltrates CT chest 11/09 showing bilateral effusion with no obvious infiltrate. -Patient has been afebrile -White count 9.5 on 11/10 Sputum culture pending Antibiotics broadened 11/08 to Vancomycin (11/08- current), Cefepime (11/08 - current ) and Azithromycin (11/06 - current). She had two doses of Rocephin as well (11/06-). Antibiotics with Rocephin and azithromycin initiated 11/06 on admission - Monitor pulse oximetry and supplemental oxygen as needed - Duo nebs as needed - Blood cultures are NGTD from admission date (4) Altered mental status, unspecified Code(s): R41.82 - Altered mental status, unspecified Status: Resolved Plan: Resolved. CT head was unremarkable. Avoid sedating medications and other medications leading to risk of altered mental status Hospital Course: On 11/08 early AM patient was noted to have AMS. ABG showing pH 7.468, Co2 33, pO2 69.3 on 4L NC. She is noted to have EKG with afib, unchanged, and normal cardiac enzymes. CXR showing possible worsening infiltrate vs fluid. CT head ordered. Restoril was discontinued after one dose 11/07 PM. * Workup as above * Pt received Lasix 20mg IV x 1, continued diuresis as otherwise noted * CT head ordered and pending * Lactic acid ordered, 2.1 * BiPap - patient anxious regarding wearing the mask. ABG overall unremarkable however patient is high risk for decompensation based on her history. Patient clinically with picture concerning for worsening Pneumonia. Broadened antibiotics to Vancomycin, Cefepime and Azithromycin. * Low threshold for transfer if continuing to worsen * Continue morphine IV for decreased anxiety on Bipap if CT wnl and patient confusion resolves (5) COPD (chronic obstructive pulmonary disease) Code(s): J44.9 - Chronic obstructive pulmonary disease, unspecified Status: Chronic Plan: Prednisone 20mg daily by mouth initiated per pulmonology on 11/11, patient tolerating taper well. Hospital Course: Patient with history of COPD with clinical worsening characterized by shortness of breath and altered mental status overnight on 11/08. The patient initially did not meet criteria suggestive of COPD exacerbation, however clinical decline led to broadening antibiotics as noted and initiating Solu-Medrol 60 mg IV every 8 hours on 11/08. Solu-Medrol taper initiated 11/11 with transition to prednisone by mouth 20 mg daily on 11/11. CT chest showing small bilateral pleural effusions with no evidence of infiltrates, compressive atelectasis in both lung bases, clear upper lung valle (6) Atrial fibrillation Code(s): I48.91 - Unspecified atrial fibrillation Status: Chronic Plan: Hemodynamically stable, home meds adjusted and tolerating well. Will discharge on a regimen. Heart rate in the 80s this morning, range 80s-90s over last 24hr. Has been better controlled since 11/09. Will continue Cardizem 60 mg PO every 6 hours at this time and consider q4hr dosing if needed. Metoprolol 50mg q12hr PO to continue. Impression/Hospital Course: History of atrial fibrillation with fluctuating heart rates in the 100s-150s * Continue to monitor on telemetry * ACS rule out has been performed, troponins negative 3 with repeat troponin 11/08 negative * Increase Cardizem from 240 mg daily to 300 mg daily * Continue metoprolol 50 mg twice daily * Continue Brilinta and Eliquis 11/08: patient received the follow medications for control of her heart rate: metoprolol PO 25mg AM, labetolol 10mg IV AM, cardizem 15mg IV x1 AM, digoxin 125mcg PO x 1 AM, cardizem 10mg IV x 1 PM, metoprolol 50mg PO PM. Cardiac workup negative. Metoprolol was increased to 50mg PO BID on 11/08, to continue for now as long as BP tolerates this (7) Diabetes mellitus type 2 with complications Code(s): E11.8 - Type 2 diabetes mellitus with unspecified complications Status: Chronic Plan: Chronic, patient has never been on insulin at home. Low-dose sliding scale NovoLog ordered. Patient has required ~10 correction units of NovoLog over the last 24 hours. Steroids for COPD likely playing a role. We will continue to monitor closely and transition to a lower dose of steroids as tolerated (8) CKD (chronic kidney disease) stage 3, GFR 30-59 ml/min Code(s): N18.3 - Chronic kidney disease, stage 3 (moderate) Status: Chronic Plan: Baseline creatinine around 1.8, creatinine is slightly elevated today -Monitor with daily labs given diuresis - Avoid nephrotoxic agents outside of diuretic - Renally dose medications (9) History of Clostridium difficile infection Code(s): Z86.19 - Personal history of other infectious and parasitic diseases Status: Acute Plan: C. difficile negative, suspect related to antibiotics which have been discontinued. Initiated probiotics 11/11. Hospital Course: Patient with formed stools on admission with diarrhea reported morning of 11/08. C diff ordered at that time but still pending. Low suspicion for C diff at this time. Continue probiotics. Notably patient completed 10 day course of PO vancomycin in October 2017 with resolution of diarrhea as outpatient (10) Nutrition, metabolism, and development symptoms Code(s): R63.8 - Other symptoms and signs concerning food and fluid intake Status: Acute Plan: Fluids: tolerating PO/gentle diuresis Electrolytes: monitor and replete as needed, reviewed Nutrition: Cardiac diet, will monitor blood sugars and transition to diabetic + heart healthy diet if needed DVT Prophylaxis: Early ambulation. Bilateral SCDs GI Prophylaxis: Famotidine given on steroids PRN anti-HTN: Clonidine 0.1mg PO PRN for SBP > 180/ and/or DBP > 100 <Kylah Carter - 11/11/17 10:28> - Assessment and Plan 72-year-old female with medical history significant for COPD, atrial fibrillation, heart failure with reduced EF, and diabetes who presented with acute onset shortness of breath and admitted for management of CHF exacerbation and pneumonia. <Kylah Carter - 11/11/17 10:47> Discharge Planning: Disposition: Anticipate discharge to rehab on 11/12. Case management consulted. PT consulted and tentatively recommending home PT however this may change <Kylah Carter - 11/11/17 10:47> - Attending Attestation The exam, history, and the medical decision-making described in the above note were completed with the assistance of the resident physician. I reviewed and agree with the findings presented. I attest that I had a [id number] encounter with the patient on the same day, and personally performed and documented my assessment and findings in the medical record. she is ready to go to [facility] as she enjoyed it there before <ArnulfoBarbara arthur Amanda - 11/11/17 13:34> <Kylah Carter - Last Filed: 11/11/17 10:28> (1) Acute exacerbation of CHF (congestive heart failure) Qualifiers: Heart failure type: unspecified Qualified Code(s): I50.9 - Heart failure, unspecified (3) Pneumonia Qualifiers: Pneumonia type: due to unspecified organism Laterality: unspecified laterality Lung location: unspecified part of lung Qualified Code(s): J18.9 - Pneumonia, unspecified organism (5) COPD (chronic obstructive pulmonary disease) Qualifiers: COPD type: COPD with acute exacerbation Qualified Code(s): J44.1 - Chronic obstructive pulmonary disease with (acute) exacerbation (7) Diabetes mellitus type 2 with complications Qualifiers: Diabetes mellitus long term care pharmacist insulin use: without jail use Qualified Code (s): E11.8 - Type 2 diabetes mellitus with unspecified complications <Barbara Arredondo - Last Filed: 11/11/17 13:34> (1) Acute exacerbation of CHF (congestive heart failure) Qualifiers: Heart failure type: unspecified Qualified Code(s): I50.9 - Heart failure, unspecified (3) Pneumonia Qualifiers: Pneumonia type: due to unspecified organism Laterality: unspecified laterality Lung location: unspecified part of lung Qualified Code(s): J18.9 - Pneumonia, unspecified organism (5) COPD (chronic obstructive pulmonary disease) Qualifiers: COPD type: COPD with acute exacerbation Qualified Code(s): J44.1 - Chronic obstructive pulmonary disease with (acute) exacerbation (7) Diabetes mellitus type 2 with complications Qualifiers: Diabetes mellitus jail insulin use: without long term care pharmacist use Qualified Code (s): E11.8 - Type 2 diabetes mellitus with unspecified complications <Kylah Carter - Last Filed: 11/11/17 10:28> (1) Acute exacerbation of CHF (congestive heart failure) Qualifiers: Heart failure type: unspecified Qualified Code(s): I50.9 - Heart failure, unspecified (3) Pneumonia Qualifiers: Pneumonia type: due to unspecified organism Laterality: unspecified laterality Lung location: unspecified part of lung Qualified Code(s): J18.9 - Pneumonia, unspecified organism (5) COPD (chronic obstructive pulmonary disease) Qualifiers: COPD type: COPD with acute exacerbation Qualified Code(s): J44.1 - Chronic obstructive pulmonary disease with (acute) exacerbation (7) Diabetes mellitus type 2 with complications Qualifiers: Diabetes mellitus jail insulin use: without jail use Qualified Code (s): E11.8 - Type 2 diabetes mellitus with unspecified complications <Barbara Arredondo - Last Filed: 11/11/17 13:34> (1) Acute exacerbation of CHF (congestive heart failure) Qualifiers: Heart failure type: unspecified Qualified Code(s): I50.9 - Heart failure, unspecified (3) Pneumonia Qualifiers: Pneumonia type: due to unspecified organism Laterality: unspecified laterality Lung location: unspecified part of lung Qualified Code(s): J18.9 - Pneumonia, unspecified organism (5) COPD (chronic obstructive pulmonary disease) Qualifiers: COPD type: COPD with acute exacerbation Qualified Code(s): J44.1 - Chronic obstructive pulmonary disease with (acute) exacerbation (7) Diabetes mellitus type 2 with complications Qualifiers: Diabetes mellitus long term care pharmacist insulin use: without long term care pharmacist use Qualified Code (s): E11.8 - Type 2 diabetes mellitus with unspecified complications
[2017-11-11] MEDS ORDERED: Famotidine 20 MG Tablet PO SCH (21:00)
[2017-11-12 05:26] LABS: Baso % (Auto) 0.1 % (0.0-2.0); Hematocrit 34.2 % (35.0-46.0); Hemoglobin 11.2 gm/dL (11.6-15.3); Lymph # (Auto) 0.6 th/mm3 (1.0-4.8); Lymph % (Auto) 6.3 % (9.0-44.0); Mean Corpuscular HGB Conc 32.6 % (32.0-36.0); Mean Corpuscular Volume 91.8 fL (80.0-100.0); Mean Platelet Volume 9.5 fL (7.0-11.0); Mono # (Auto) 0.9 th/mm3 (0.0-0.9); Mono % (Auto) 9.3 % (0.0-8.0); Neut # (Auto) 8.5 th/mm3 (1.8-7.7); Neut % (Auto) 84.3 % (16.0-70.0); Platelet Count 282 th/mm3 (150-450); Red Blood Count 3.72 mil/mm3 (4.00-5.30); Red Cell Distribution Width 17.4 % (11.6-17.2); White Blood Count 10.1 th/mm3 (4.0-11.0)
[2017-11-12 05:46] LABS: Albumin 3.2 g/dL (3.4-5.0); Anion Gap 10 meq/L (5-15); Aspartate Aminotransferase 95 U/L (15-37); Blood Urea Nitrogen 64 mg/dL (7-18); Calcium 8.8 mg/dL (8.5-10.1); Carbon Dioxide 29.3 meq/L (21.0-32.0); Chloride 102 meq/L (98-107); Glomerular Filtration Rate 18 mL/min (>89); Glucose,Random 142 mg/dL (74-106); Potassium 3.9 meq/L (3.5-5.1); Sodium 141 meq/L (136-145)
[2017-11-12 05:51] LABS: Alanine Aminotransferase 190 U/L (10-53); Alkaline Phosphatase 94 U/L (45-117); Total Protein 6.6 g/dL (6.4-8.2)
--- NOTE | 2017-11-12 08:30 | P.PNFP ---
Subjective Interval history: Patient was seen and examined this morning. She feels like her breathing is at baseline. She denies chest pain and palpitations, but endorses baseline shortness of breath. No reported overnight events. Bowel movements still loose but not diarrhea. No fevers, chills, nausea, vomiting, constipation. She feels ready for rehab. <Kylah Carter Elis - 11/12/17 11:52> Results - Labs Result diagrams: 11/12/17 04:15 11/12/17 04:15 <Barbara Arredondo - 11/14/17 09:08> Abnormal lab results 11/11/17 11/11/17 11/11/17 Range/Units 06:39 12:02 17:54 RBC (4.00-5.30) mil/mm3 Hgb (11.6-15.3) gm/dL Hct (35.0-46.0) % RDW (11.6-17.2) % Neut % (Auto) (16.0-70.0) % Lymph % (Auto) (9.0-44.0) % Jasper % (Auto) (0.0-8.0) % Neut # (Auto) (1.8-7.7) th/mm3 Lymph # (Auto) (1.0-4.8) th/mm3 BUN 59 H (7-18) mg/dL Creatinine 2.48 H (0.50-1.00) mg/dL Estimated GFR 19 L (>89) mL/min POC Glucose 160 H 206 H (68-110) mg/dl Random Glucose 156 H (74-106) mg/dL AST 72 H (15-37) U/L ALT 159 H (10-53) U/L B-Natriuretic Peptide (0-100) pg/mL Albumin 3.3 L (3.4-5.0) g/dL 11/11/17 11/12/17 11/12/17 Range/Units 20:13 04:15 04:15 RBC 3.72 L (4.00-5.30) mil/mm3 Hgb 11.2 L (11.6-15.3) gm/dL Hct 34.2 L (35.0-46.0) % RDW 17.4 H (11.6-17.2) % Neut % (Auto) 84.3 H (16.0-70.0) % Lymph % (Auto) 6.3 L (9.0-44.0) % Jasper % (Auto) 9.3 H (0.0-8.0) % Neut # (Auto) 8.5 H (1.8-7.7) th/mm3 Lymph # (Auto) 0.6 L (1.0-4.8) th/mm3 BUN 64 H (7-18) mg/dL Creatinine 2.55 H (0.50-1.00) mg/dL Estimated GFR 18 L (>89) mL/min POC Glucose 283 H (68-110) mg/dl Random Glucose 142 H (74-106) mg/dL AST 95 H (15-37) U/L ALT 190 H (10-53) U/L B-Natriuretic Peptide (0-100) pg/mL Albumin 3.2 L (3.4-5.0) g/dL 11/12/17 11/12/17 Range/Units 04:15 07:45 RBC (4.00-5.30) mil/mm3 Hgb (11.6-15.3) gm/dL Hct (35.0-46.0) % RDW (11.6-17.2) % Neut % (Auto) (16.0-70.0) % Lymph % (Auto) (9.0-44.0) % [place]asper % (Auto) (0.0-8.0) % Neut # (Auto) (1.8-7.7) th/mm3 Lymph # (Auto) (1.0-4.8) th/mm3 BUN (7-18) mg/dL Creatinine (0.50-1.00) mg/dL Estimated GFR (>89) mL/min POC Glucose 143 H (68-110) mg/dl Random Glucose (74-106) mg/dL AST (15-37) U/L ALT (10-53) U/L B-Natriuretic Peptide 837 H (0-100) pg/mL Albumin (3.4-5.0) g/dL Short CBC 11/12/17 Range/Units 04:15 WBC 10.1 (4.0-11.0) th/mm3 Hgb 11.2 L (11.6-15.3) gm/dL Hct 34.2 L (35.0-46.0) % Plt Count 282 (150-450) th/mm3 BMP 11/11/17 11/12/17 06:39 04:15 Sodium 142 141 Potassium 3.8 3.9 Chloride 105 102 Carbon Dioxide 27.0 29.3 BUN 59 H 64 H Creatinine 2.48 H 2.55 H Calcium 8.7 8.8 Liver Function 11/11/17 11/12/17 Range/Units 06:39 04:15 Total Bilirubin 0.7 0.7 (0.2-1.0) mg/dL AST 72 H 95 H (15-37) U/L ALT 159 H 190 H (10-53) U/L Alkaline Phosphatase 96 94 (45-117) U/L Albumin 3.3 L 3.2 L (3.4-5.0) g/dL <Kylah Carter L - 11/12/17 08:30> Physical Exam Vital signs: Vital Signs 11/11/17 09:00 11/11/17 09:37 11/11/17 10:00 Temperature Pulse Rate 128 H 84 88 Respiratory Rate 18 Blood Pressure Pulse Oximetry 96 11/11/17 11:00 11/11/17 12:00 11/11/17 13:00 Temperature 98.5 F Pulse Rate 99 H 84 74 Respiratory Rate 16 Blood Pressure 136/78 Pulse Oximetry 11/11/17 14:00 11/11/17 15:00 11/11/17 15:29 Temperature 98.4 F Pulse Rate 62 65 53 L Respiratory Rate 16 18 Blood Pressure 118/77 Pulse Oximetry 98 98 11/11/17 16:00 11/11/17 17:00 11/11/17 18:00 Temperature Pulse Rate 74 84 84 Respiratory Rate Blood Pressure Pulse Oximetry 11/11/17 19:00 11/11/17 19:59 11/11/17 20:00 Temperature 98.4 F Pulse Rate 80 80 Respiratory Rate 20 Blood Pressure 124/75 Pulse Oximetry 100 100 11/11/17 21:00 11/11/17 21:01 11/11/17 22:00 Temperature Pulse Rate 84 63 75 Respiratory Rate 16 Blood Pressure Pulse Oximetry 11/11/17 23:00 11/11/17 23:59 11/12/17 00:00 Temperature 98.8 F Pulse Rate 89 68 Respiratory Rate 18 Blood Pressure 110/71 Pulse Oximetry 99 96 11/12/17 01:00 11/12/17 02:00 11/12/17 03:00 Temperature 98.2 F Pulse Rate 70 84 76 Respiratory Rate 16 Blood Pressure 102/70 Pulse Oximetry 98 11/12/17 03:09 11/12/17 03:10 11/12/17 04:00 Temperature Pulse Rate 72 67 Respiratory Rate 17 Blood Pressure Pulse Oximetry 96 11/12/17 05:00 11/12/17 06:00 Temperature Pulse Rate 82 90 Respiratory Rate Blood Pressure Pulse Oximetry Intake & Output 11/11/17 11/12/17 11/12/17 18:59 06:59 18:59 Intake Total 1260 / 1260 480 / 480 Output Total 850 / 850 Balance 1260 / 1260 -370 / -370 Weight 78.1 kg Intake: Oral 1260 / 1260 480 / 480 Output: Urine 850 / 850 Other: # Voids 7 # Bowel Movements 1 <Kylah Carter - 11/12/17 08:30> Narrative: GENERAL: Elderly female on on room air. She is in no apparent distress. SKIN: Bruising on upper extremities. Cool and dry. HEAD: Atraumatic. Normocephalic. No temporal or scalp tenderness. NECK: Trachea midline. No JVD or lymphadenopathy. CARDIOVASCULAR: Irregular rate and rhythm without murmurs, gallops, or rubs. Heart rate 80s on monitor. 1+ lower extremity edema noted. RESPIRATORY: No increased work of breathing. RR ~14. Air movement improved. Minimal crackles at bilateral lung bases. GASTROINTESTINAL: Abdomen soft, non-tender, nondistended. Normal bowel sounds. MUSCULOSKELETAL: Extremities cool and dry without clubbing, cyanosis. SACRUM: erythema noted at sacrum with 1/5 cm superficial opening of the skin which is not draining and appears noninfected. PSYCHIATRIC: Appropriate mood and affect; insight and judgment normal. NEURO: alert and oriented x 3. No focal neurological deficit. Normal extremity sensation, ROM, and strength. <Kylah Carter - 11/12/17 11:52> Assessment and Plan - Assessment (1) Acute exacerbation of CHF (congestive heart failure) Code(s): I50.9 - Heart failure, unspecified Status: Acute (2) Sepsis due to pneumonia Code(s): J18.9 - Pneumonia, unspecified organism; A41.9 - Sepsis, unspecified organism Status: Resolved (3) Pneumonia Code(s): J18.9 - Pneumonia, unspecified organism Status: Resolved (4) Altered mental status, unspecified Code(s): R41.82 - Altered mental status, unspecified Status: Resolved (5) COPD (chronic obstructive pulmonary disease) Code(s): J44.9 - Chronic obstructive pulmonary disease, unspecified Status: Chronic (6) Atrial fibrillation Code(s): I48.91 - Unspecified atrial fibrillation Status: Chronic (7) Diabetes mellitus type 2 with complications Code(s): E11.8 - Type 2 diabetes mellitus with unspecified complications Status: Chronic (8) CKD (chronic kidney disease) stage 3, GFR 30-59 ml/min Code(s): N18.3 - Chronic kidney disease, stage 3 (moderate) Status: Chronic (9) History of Clostridium difficile infection Code(s): Z86.19 - Personal history of other infectious and parasitic diseases Status: Acute (10) Nutrition, metabolism, and development symptoms Code(s): R63.8 - Other symptoms and signs concerning food and fluid intake Status: Acute <Barbara Arredondo - 11/14/17 09:08> (1) Acute exacerbation of CHF (congestive heart failure) Code(s): I50.9 - Heart failure, unspecified Status: Acute Plan: Plan: Continue gentle diuresis, patient tolerating transition to p.o. Lasix twice daily 40 mg. Creatinine slightly increased from baseline of 1.8, likely related to diuresis, will recheck BMP as outpatient to monitor. Labs stable over 24hr. UOP adequate. Patient is on beta-rob may benefit from spironolactone and ACEI given NYHA class III, AHA Stage C. 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 Hospital Course: CHF with Echo September 2017 showing EF of 35-40%, on 11/08 showing EF 30-35% Patient has been diuresing well IV to PO 11/07 with worsening lung exam and symptoms overnight PO to IV transition 11/08. Had 20mg IV Lasix at 4am, repeat 20mg IV Lasix this morning x 1 and then 40 mg IV twice daily IV to PO 7/10 afternoon BNP 1036 on admission, 837 on date of discharge. Symptoms have improved Continue to monitor I's and O's and daily weights as outpt recommended Continue fluid restriction and heart healthy, low-salt diet Continue supplemental oxygen as needed, patient is on 2L nasal cannula at baseline (at times tolerates room air at rest) BiPAP not tolerated, pt to have progression of respiratory support if needed, is full code (2) Sepsis due to pneumonia Code(s): J18.9 - Pneumonia, unspecified organism; A41.9 - Sepsis, unspecified organism Status: Resolved Plan: Resolved, on room air to 2L baseline at this point antibiotics discontinued per pulmonology. COPD and CHF considered to be patient's primary etiologies for her symptoms. Impression/Course: Patient is noted to meet sepsis criteria on 11/08 given lactic acid 2.1, leukocytosis of 13.3, respiratory rate 20, suspected source pneumonia. She also does notably have chronic kidney disease thus creatinine is greater than 2 however this is likely related to Lasix diuresis rather than sepsis. * Treating for HCAP with broad coverage as noted * Lactic acid sepsis protocol was ordered, repeat lactic acid per protocol, 2.1 --> 2.0 * Blood cultures no growth * Sputum cultures normal respiratory aurora * Respiratory support as noted (3) Pneumonia Code(s): J18.9 - Pneumonia, unspecified organism Status: Resolved Plan: Resolved, on room air to 2L baseline at this point antibiotics discontinued. Hospital Course: CXR 11/06 showing diffuse interstitial come opacities, possible pneumonia. CXR 11/08 showing possible worsening infiltrates CT chest 11/09 showing bilateral effusion with no obvious infiltrate. -Patient has been afebrile -White count within normal limits since 11/09 -Antibiotics broadened as noted due to worsening clinical course which resolved Sputum culture showing heavy growth of normal aurora Blood cultures no growth Antibiotic Course: Rocephin (11/06-11/07) Azithromycin (11/06 - 11/12) Vancomycin (11/08 - 11/10) Cefepime (11/08 - 11/10) Cefuroxime (11/10-11/12) (4) Altered mental status, unspecified Code(s): R41.82 - Altered mental status, unspecified Status: Resolved Plan: Resolved. CT head was unremarkable. Patient is likely to benefit from avoiding benzos given Restoril likely led to her altered mentation. Hospital Course: On 11/08 early AM patient was noted to have AMS. ABG showing pH 7.468, Co2 33, pO2 69.3 on 4L NC. She is noted to have EKG with afib, unchanged, and normal cardiac enzymes. CXR showing possible worsening infiltrate vs fluid. CT head ordered. Restoril was discontinued after one dose 11/07 PM. * Pt received continued diuresis as otherwise noted * Lactic acid ordered, 2.1 * BiPap - patient anxious regarding wearing the mask. ABG overall unremarkable however patient is high risk for decompensation based on her history. Patient clinically with picture concerning for worsening respiratory status at that time. Broadened antibiotics to Vancomycin, Cefepime and Azithromycin at that time, antibiotic course noted elsewhere. She is noted to have tolerated morphine 2mg IV dosing without altered mentation after this episode. (5) COPD (chronic obstructive pulmonary disease) Code(s): J44.9 - Chronic obstructive pulmonary disease, unspecified Status: Chronic Plan: Prednisone 20mg daily by mouth initiated per pulmonology on 11/11, patient tolerating taper well. Will continue prednisone taper as follows: 20 mg on day 1, 50 mg on day 2, 10 mg on day 3, and 5 mg on day 4. Patient to follow-up with PCP in 1 week. She will be discharged to SNF for rehabilitation. Hospital Course: Patient with history of COPD with clinical worsening characterized by shortness of breath and altered mental status overnight on 11/08. The patient initially did not meet criteria suggestive of COPD exacerbation, however clinical decline led to broadening antibiotics as noted and initiating Solu-Medrol 60 mg IV every 8 hours on 11/08. Solu-Medrol taper initiated 11/11 with transition to prednisone by mouth 20 mg daily on 11/11. CT chest showing small bilateral pleural effusions with no evidence of infiltrates, compressive atelectasis in both lung bases, clear upper lung valle (6) Atrial fibrillation Code(s): I48.91 - Unspecified atrial fibrillation Status: Chronic Plan: Hemodynamically stable, heart rate well controlled on current regimen which was adjusted from home regimen. Has been better controlled since 11/09. Will discharge on Cardizem 60 mg 4 times daily and metoprolol 50 mg twice daily. Impression/Hospital Course: History of atrial fibrillation with fluctuating heart rates in the 100s-150s * Continue to monitor on telemetry * ACS rule out has been performed, troponins negative 3 with repeat troponin 11/08 negative * Increase Cardizem from 240 mg daily to 300 mg daily * Continue metoprolol 50 mg twice daily * Continue Brilinta and Eliquis 11/08: patient received the follow medications for control of her heart rate: metoprolol PO 25mg AM, labetolol 10mg IV AM, cardizem 15mg IV x1 AM, digoxin 125mcg PO x 1 AM, cardizem 10mg IV x 1 PM, metoprolol 50mg PO PM. Cardiac workup negative. Metoprolol was increased to 50mg PO BID on 11/08. (7) Diabetes mellitus type 2 with complications Code(s): E11.8 - Type 2 diabetes mellitus with unspecified complications Status: Chronic Plan: Chronic, patient has never been on insulin at home. Low-dose sliding scale NovoLog ordered. Patient has required ~10 correction units of NovoLog over the last 24 hours. Steroids for COPD likely playing a role. We will continue to monitor closely and transition to a lower dose of steroids as tolerated (8) CKD (chronic kidney disease) stage 3, GFR 30-59 ml/min Code(s): N18.3 - Chronic kidney disease, stage 3 (moderate) Status: Chronic Plan: Baseline creatinine around 1.8, creatinine is slightly elevated at discharge, will recheck BMP in 3 days -Monitor with daily labs given diuresis - Avoid nephrotoxic agents outside of diuretic - Renally dose medications (9) History of Clostridium difficile infection Code(s): Z86.19 - Personal history of other infectious and parasitic diseases Status: Acute Plan: C. difficile negative, suspect related to antibiotics which have been discontinued. Initiated probiotics 11/11. Hospital Course: Patient with formed stools on admission with diarrhea reported morning of 11/08. C diff ordered at that time but still pending. Low suspicion for C diff at this time. Continue probiotics. Notably patient completed 10 day course of PO vancomycin in October 2017 with resolution of diarrhea as outpatient (10) Nutrition, metabolism, and development symptoms Code(s): R63.8 - Other symptoms and signs concerning food and fluid intake Status: Acute Plan: Fluids: tolerating PO/gentle diuresis Electrolytes: monitor and replete as needed, reviewed Nutrition: Cardiac diet, will monitor blood sugars and transition to diabetic + heart healthy diet if needed DVT Prophylaxis: Early ambulation. Bilateral SCDs GI Prophylaxis: Famotidine given on steroids PRN anti-HTN: Clonidine 0.1mg PO PRN for SBP > 180/ and/or DBP > 100 <Kylah Carter - 11/12/17 11:46> - Assessment and Plan 72-year-old female with medical history significant for COPD, atrial fibrillation, heart failure with reduced EF, and diabetes who presented with acute onset shortness of breath and admitted for management of CHF exacerbation and pneumonia. <Kylah Carter - 11/12/17 11:52> Discharge Planning: Disposition: Anticipate discharge to rehab on 11/12. Case management consulted. Wants to go to [facility]. <Kylah Carter - 11/12/17 11:52> - Attending Attestation The exam, history, and the medical decision-making described in the above note were completed with the assistance of the resident physician. I reviewed and agree with the findings presented. I attest that I had a [id number] encounter with the patient on the same day, and personally performed and documented my assessment and findings in the medical record. She is stable though "feeling her age". she needs rehab as she is weakened from her hospitalization <Barbara Arredondo - 11/14/17 09:08> <Kylah Carter - Last Filed: 11/12/17 11:46> (1) Acute exacerbation of CHF (congestive heart failure) Qualifiers: Heart failure type: unspecified Qualified Code(s): I50.9 - Heart failure, unspecified (3) Pneumonia Qualifiers: Pneumonia type: due to unspecified organism Laterality: unspecified laterality Lung location: unspecified part of lung Qualified Code(s): J18.9 - Pneumonia, unspecified organism (5) COPD (chronic obstructive pulmonary disease) Qualifiers: COPD type: COPD with acute exacerbation Qualified Code(s): J44.1 - Chronic obstructive pulmonary disease with (acute) exacerbation (7) Diabetes mellitus type 2 with complications Qualifiers: Diabetes mellitus penitentiary insulin use: without intermediate frame tender use Qualified Code (s): E11.8 - Type 2 diabetes mellitus with unspecified complications <Barbara Arredondo - Last Filed: 11/14/17 09:08> (1) Acute exacerbation of CHF (congestive heart failure) Qualifiers: Heart failure type: unspecified Qualified Code(s): I50.9 - Heart failure, unspecified (3) Pneumonia Qualifiers: Pneumonia type: due to unspecified organism Laterality: unspecified laterality Lung location: unspecified part of lung Qualified Code(s): J18.9 - Pneumonia, unspecified organism (5) COPD (chronic obstructive pulmonary disease) Qualifiers: COPD type: COPD with acute exacerbation Qualified Code(s): J44.1 - Chronic obstructive pulmonary disease with (acute) exacerbation (7) Diabetes mellitus type 2 with complications Qualifiers: Diabetes mellitus penitentiary insulin use: without intermediate frame tender use Qualified Code (s): E11.8 - Type 2 diabetes mellitus with unspecified complications <Kylah Carter - Last Filed: 11/12/17 11:46> (1) Acute exacerbation of CHF (congestive heart failure) Qualifiers: Heart failure type: unspecified Qualified Code(s): I50.9 - Heart failure, unspecified (3) Pneumonia Qualifiers: Pneumonia type: due to unspecified organism Laterality: unspecified laterality Lung location: unspecified part of lung Qualified Code(s): J18.9 - Pneumonia, unspecified organism (5) COPD (chronic obstructive pulmonary disease) Qualifiers: COPD type: COPD with acute exacerbation Qualified Code(s): J44.1 - Chronic obstructive pulmonary disease with (acute) exacerbation (7) Diabetes mellitus type 2 with complications Qualifiers: Diabetes mellitus intermediate frame tender insulin use: without penitentiary use Qualified Code (s): E11.8 - Type 2 diabetes mellitus with unspecified complications <Barbara Arredondo - Last Filed: 11/14/17 09:08> (1) Acute exacerbation of CHF (congestive heart failure) Qualifiers: Heart failure type: unspecified Qualified Code(s): I50.9 - Heart failure, unspecified (3) Pneumonia Qualifiers: Pneumonia type: due to unspecified organism Laterality: unspecified laterality Lung location: unspecified part of lung Qualified Code(s): J18.9 - Pneumonia, unspecified organism (5) COPD (chronic obstructive pulmonary disease) Qualifiers: COPD type: COPD with acute exacerbation Qualified Code(s): J44.1 - Chronic obstructive pulmonary disease with (acute) exacerbation (7) Diabetes mellitus type 2 with complications Qualifiers: Diabetes mellitus intermediate frame tender insulin use: without penitentiary use Qualified Code (s): E11.8 - Type 2 diabetes mellitus with unspecified complications
[2017-11-12] MEDS: predniSONE 20 MG Tablet PO SCH (08:53)
[2017-11-12] MEDS: dilTIAZem 60 MG Tablet PO SCH ×2 (08:54→12:51)
[2017-11-12] MEDS: Metoprolol Tartrate 50 MG Tablet PO SCH (08:54)
[2017-11-12] MEDS: Insulin NovoLOG Aspart Correctional Sugar Inj SQ SCH ×2 (09:00→12:52)
[2017-11-12] MEDS: Furosemide 40 MG Tablet PO SCH (09:02)
[2017-11-12 09:08] VITALS: RESP 18
--- NOTE | 2017-11-12 11:54 | P.DS ---
<Kylah Carter - Last Filed: 11/12/17 11:55> Date of admission: 11/06/17 01:51 Primary care physician: Priyank Freire MD, R2 Attending physician on discharge: Barbara Arredondo Anticipated date of discharge: 11/12/17 Brief History from admission: Patient is a 72-year-old female with history significant for CHF, COPD, A. fib, recent intubation in September 2017, and diabetes. She presented on 11/05 with progressive worsening shortness of breath. She is reportedly in the 80% saturation range upon EMS evaluation and required BiPAP in route to the ER and after arrival. She was wheezing at that time with evidence of fluid overload. She did receive nitroglycerin paste in the ED but denies any chest pain. She has received albuterol treatments and IV Lasix therapy since admission and feels 80% better at time of my evaluation. She feels the BiPAP did help with her symptoms significantly and is of note using 2 L nasal cannula oxygen at home at baseline. She denies any recent changes to her medications and notes that she has been taking them regularly. She does note that she had increased level of physical activity over the last week because she was feeling well; she cleaned up her whole house and did an afternoon of gardening the day before her symptom onset. On review of systems she denies fevers, chills, nausea, vomiting, chest pain, rash, wheezing. She notes her shortness of breath is improved. She has been feeling palpitations but notes this is normal for her. She has dry mouth and does use cough drops regularly and request these today. She denies abdominal pain, dysuria, black or bloody stools, and constipation. She denies musculoskeletal pain and notes she is able to walk with walker at home. She lives alone. She endorses some fluid overload in the lower extremities but nothing out of the ordinary. EMR is reviewed and patient is noted to have had a hospitalization September 24 - October 05 for respiratory failure and complicated CHF. She is noted to have been intubated during that hospitalization. She was discharged to [facility] where she stayed for 2 weeks and went home on 10/17. She did have family there until . None of them were sick she denies other sick contacts. She has not had any recent travel. Past Medical History Left Heart Cath (w/ 2 stents) August 2017 CAD s/p 3 vessel CABG 2004 AFib w/RVR CHF HTN HLD COPD with 2L O2 requirement DM CKD Past Surgical History Left heart cath August 2017 3 stents in lower extremity Dr. Gardiner; 2015 (Left and right legs, and abdominal aorta) Right knee replacement; 2014 Dr. Alexander Lumbar Spine L5-S1 repair (2 spacers and rods, some hardware removed during second surgery); 2013 Dr. Valdes Right and Left Cataracts; 2005/2006, Dr. Montoya Triple CABG 2004; Dr. Romano Total Hysterectomy 1973 Bilateral foot surgery in 1972 Esophageal surgery (stretched) Reported Medications Reported Meds & Active Scripts Active Oxygen tank (Oxygen) 1 Ea Tank Liter PA.CANULA CONTINUOUS Oxygen Concentrator Portable Gaseous 2 L/min via Nasal Cannula Continuous For 99 months Eliquis (Apixaban) 2.5 Mg Tab 2.5 Mg PO BID Diltiazem CD 24 HR 240 Mg Caper 240 Mg PO DAILY 30 Days Oxygen tank (Oxygen) 1 Ea Tank Liter PA.CANULA CONTINUOUS Oxygen Concentrator Portable Gaseous 2 L/min via Nasal Cannula Continuous For 99 months Isosorbide Mononitrate ER (Isosorbide Mononitrate) 30 Mg Sagar 30 Mg PO DAILY@ 07 30 Days [Albuterol-Ipratropium Neb] 1 AMPULE Nebu 1 Ampule NEB Q6HR NEB PRN 14 Days Lopressor (Metoprolol Tartrate) 50 Mg Tab 50 Mg PO Q12HR Brilinta (Ticagrelor) 90 Mg Tab 90 Mg PO BID Metformin (Metformin HCl) 500 Mg Tab 500 Mg PO DAILY With a meal Atorvastatin (Atorvastatin Calcium) 40 Mg Tab 40 Mg PO HS Reported Lyrica (Pregabalin) 150 Mg Cap 150 Mg PO DAILY Furosemide 20 Mg Tab 20 Mg PO DAILY Plavix (Clopidogrel Bisulfate) 75 Mg Tab 75 Mg PO DAILY Lisinopril 10 Mg Tab 10 Mg PO DAILY Hydrocodone-Acetaminophen 5-325 mg Tab 1 Tab PO Q6H PRN Advair Diskus Inh (Fluticasone-Salmeterol Inh) 250-50 Mcg/Blist Aer 1 Puff INH BID Rinse mouth after use. Ventolin Hfa 18 GM Inh (Albuterol Sulfate) 90 Mcg/Act Aer 2 Puff INH Q4H PRN Active Ordered Medications Family History Father - Diabetes Mellitus, passed at age of 69 y/o Mother - Ovarian cancer at the age 53 y/o 2 sisters - Good health 82 y/o, Nandini 76 y/o 3 children - healthy, son with HTN Social History Retired, lives alone and independent in activities of ADLs. Ambulates with walker at baseline. Current smoker: 1/2 pack per day (reported 07/29/17), prior smoking habit:1 ppd for past 55 years, Denies illicit drug use Rare EtOH use Son's contact info: Madhav Sosa [phone] DS: Diagnosis - Discharge Diagnosis (1) Acute exacerbation of CHF (congestive heart failure) Status: Acute (2) Sepsis due to pneumonia Status: Resolved (3) Pneumonia Status: Resolved (4) Altered mental status, unspecified Status: Resolved (5) COPD (chronic obstructive pulmonary disease) Status: Chronic (6) Atrial fibrillation Status: Chronic (7) Diabetes mellitus type 2 with complications Status: Chronic (8) CKD (chronic kidney disease) stage 3, GFR 30-59 ml/min Status: Chronic (9) History of Clostridium difficile infection Status: Acute (10) Nutrition, metabolism, and development symptoms Status: Acute DS: Medications - Discharge Medications Prescriptions: acetaminophen 650 mg PO Q6H PRN #30 tab PRN Reason: Pain 1-10 And/Or Fever >101f apixaban [Eliquis] 5 mg PO BID #60 tab atorvastatin 80 mg PO HS #30 tab benzonatate [Tessalon Perles] 200 mg PO Q8H PRN #90 cap PRN Reason: Cough diltiazem HCl 60 mg PO QID #120 tab famotidine 20 mg PO HS #30 tab furosemide 40 mg PO BID@0900,1800 #60 tab insulin aspart U-100 [Novolog U-100 Insulin aspart] 0 unit SUB-Q ACHS #100 ml ipratropium bromide 0.5 mg NEB Q6HR NEB #60 ml Lactobacillus acidoph-L.bulgar [Floranex] 1 gm PO TID #90 ea metformin 500 mg PO DAILY #30 tab metoprolol tartrate 50 mg PO BID #60 tab potassium chloride 20 meq PO BID #60 tab prednisone 0 mg PO PER PKG DIR #10 ea sennosides-docusate sodium [Senna Plus] 1 tab PO BID PRN #60 tab PRN Reason: Constipation ticagrelor [Brilinta] 90 mg PO BID #60 tab DS: Summary Hospital Course: 72-year-old female with medical history significant for COPD, atrial fibrillation, heart failure with reduced EF, and diabetes who presented with acute onset shortness of breath and admitted for management of CHF exacerbation and pneumonia. Discharge Planning: Disposition: Anticipate discharge to rehab on 11/12. Case management consulted. Wants to go to [facility]. Interval history: Patient was seen and examined this morning. She feels like her breathing is at baseline. She denies chest pain and palpitations, but endorses baseline shortness of breath. No reported overnight events. Bowel movements still loose but not diarrhea. No fevers, chills, nausea, vomiting, constipation. She feels ready for rehab. Acute exacerbation of CHF (congestive heart failure): CHRONIC Plan: Continue gentle diuresis, patient tolerating transition to p.o. Lasix twice daily 40 mg. Creatinine slightly increased from baseline of 1.8, likely related to diuresis, will recheck BMP as outpatient to monitor. Labs stable over 24hr. UOP adequate. Patient is on beta-rob may benefit from spironolactone and ACEI given NYHA class III, AHA Stage C. 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 Hospital Course: CHF with Echo September 2017 showing EF of 35-40%, on 11/08 showing EF 30-35% Patient has been diuresing well IV to PO 11/07 with worsening lung exam and symptoms overnight PO to IV transition 11/08. Had 20mg IV Lasix at 4am, repeat 20mg IV Lasix this morning x 1 and then 40 mg IV twice daily IV to PO 11/10 afternoon BNP 1036 on admission, 837 on date of discharge. Symptoms have improved Continue to monitor I's and O's and daily weights as outpt recommended Continue fluid restriction and heart healthy, low-salt diet Continue supplemental oxygen as needed, patient is on 2L nasal cannula at baseline (at times tolerates room air at rest) BiPAP not tolerated, pt to have progression of respiratory support if needed, is full code Sepsis due to pneumonia: RESOLVED Plan: Resolved, on room air to 2L baseline at this point antibiotics discontinued per pulmonology. COPD and CHF considered to be patient's primary etiologies for her symptoms. Impression/Course: Patient is noted to meet sepsis criteria on 11/08 given lactic acid 2.1, leukocytosis of 13.3, respiratory rate 20, suspected source pneumonia. She also does notably have chronic kidney disease thus creatinine is greater than 2 however this is likely related to Lasix diuresis rather than sepsis. Treating for HCAP with broad coverage as noted Lactic acid sepsis protocol was ordered, repeat lactic acid per protocol, 2.1 --> 2.0 Blood cultures no growth Sputum cultures normal respiratory aurora Respiratory support as noted Pneumonia: RESOLVED Plan: Resolved, on room air to 2L baseline at this point antibiotics discontinued. Hospital Course: CXR 11/06 showing diffuse interstitial come opacities, possible pneumonia. CXR 11/08 showing possible worsening infiltrates CT chest 11/09 showing bilateral effusion with no obvious infiltrate. -Patient has been afebrile -White count within normal limits since 11/09 -Antibiotics broadened as noted due to worsening clinical course which resolved Sputum culture showing heavy growth of normal aurora Blood cultures no growth Antibiotic Course: Rocephin (11/06-11/07) Azithromycin (11/06 - 11/12) Vancomycin (11/08 - 11/10) Cefepime (11/08 - 11/10) Cefuroxime (11/10-11/12) Altered mental status, unspecified:RESOLVED Plan: Resolved. CT head was unremarkable. Patient is likely to benefit from avoiding benzos given Restoril likely led to her altered mentation. Hospital Course: On 11/08 early AM patient was noted to have AMS. ABG showing pH 7.468, Co2 33, pO2 69.3 on 4L NC. She is noted to have EKG with afib, unchanged, and normal cardiac enzymes. CXR showing possible worsening infiltrate vs fluid. CT head ordered. Restoril was discontinued after one dose 11/07 PM. Pt received continued diuresis as otherwise noted Lactic acid ordered, 2.1 BiPap - patient anxious regarding wearing the mask. ABG overall unremarkable however patient is high risk for decompensation based on her history. Patient clinically with picture concerning for worsening respiratory status at that time. Broadened antibiotics to Vancomycin, Cefepime and Azithromycin at that time, antibiotic course noted elsewhere. She is noted to have tolerated morphine 2mg IV dosing without altered mentation after this episode. COPD (chronic obstructive pulmonary disease): CHRONIC Plan: Prednisone 20mg daily by mouth initiated per pulmonology on 11/11, patient tolerating taper well. Will continue prednisone taper as follows: 20 mg on day 1, 50 mg on day 2, 10 mg on day 3, and 5 mg on day 4. Patient to follow-up with PCP in 1 week. She will be discharged to SNF for rehabilitation. Hospital Course: Patient with history of COPD with clinical worsening characterized by shortness of breath and altered mental status overnight on 11/08. The patient initially did not meet criteria suggestive of COPD exacerbation, however clinical decline led to broadening antibiotics as noted and initiating Solu-Medrol 60 mg IV every 8 hours on 11/08. Solu-Medrol taper initiated 11/11 with transition to prednisone by mouth 20 mg daily on 11/11. CT chest showing small bilateral pleural effusions with no evidence of infiltrates, compressive atelectasis in both lung bases, clear upper lung valle Atrial fibrillation:R CHRONIC (Resolved: Afib with RVR) Plan: Hemodynamically stable, heart rate well controlled on current regimen which was adjusted from home regimen. Has been better controlled since 11/09. Will discharge on Cardizem 60 mg 4 times daily and metoprolol 50 mg twice daily. Impression/Hospital Course: History of atrial fibrillation with fluctuating heart rates in the 100s-150s Continue to monitor on telemetry ACS rule out has been performed, troponins negative 3 with repeat troponin negative Increase Cardizem from 240 mg daily to 300 mg daily Continue metoprolol 50 mg twice daily Continue Brilinta and Eliquis 11/08: patient received the follow medications for control of her heart rate: metoprolol PO 25mg AM, labetolol 10mg IV AM, cardizem 15mg IV x1 AM, digoxin 125mcg PO x 1 AM, cardizem 10mg IV x 1 PM, metoprolol 50mg PO PM. Cardiac workup negative. Metoprolol was increased to 50mg PO BID on 11/08. Diabetes mellitus type 2 with complications: CHRONIC Plan: Chronic, patient has never been on insulin at home. Low-dose sliding scale NovoLog ordered. Patient has required ~10 correction units of NovoLog over the last 24 hours. Steroids for COPD likely playing a role. We will continue to monitor closely and transition to a lower dose of steroids as tolerated Restart Metformin 500mg daily, had diarrhea this hospital stay so would titrate carefully CKD (chronic kidney disease) stage 3, GFR 30-59 ml/min: CHRONIC Plan: Baseline creatinine around 1.8, creatinine is slightly elevated at discharge, will recheck BMP in 3 days -Monitor with daily labs given diuresis - Avoid nephrotoxic agents outside of diuretic - Renally dose medications History of Clostridium difficile infection: RESOLVED Plan: C. difficile negative, suspect related to antibiotics which have been discontinued. Initiated probiotics 11/11. Hospital Course: Patient with formed stools on admission with diarrhea reported morning of 11/08. C diff ordered at that time but still pending. Low suspicion for C diff at this time. Continue probiotics. Notably patient completed 10 day course of PO vancomycin in October 2017 with resolution of diarrhea as outpatient - Time Spent with Patient Total time spent providing and/or coordinating discharge services: - Quality: VTE Deep Vein Thrombosis/Pulmonary Embolism Present on Admission: No Exam Vital signs: Vital Signs 11/11/17 12:00 11/11/17 13:00 11/11/17 14:00 Temperature Pulse Rate 84 74 62 Respiratory Rate Blood Pressure Pulse Oximetry 11/11/17 15:00 11/11/17 15:29 11/11/17 16:00 Temperature 98.4 F Pulse Rate 65 53 L 74 Respiratory Rate 16 18 Blood Pressure 118/77 Pulse Oximetry 98 98 11/11/17 17:00 11/11/17 18:00 11/11/17 19:00 Temperature 98.4 F Pulse Rate 84 84 80 Respiratory Rate 20 Blood Pressure 124/75 Pulse Oximetry 100 11/11/17 19:59 11/11/17 20:00 11/11/17 21:00 Temperature Pulse Rate 80 84 Respiratory Rate Blood Pressure Pulse Oximetry 100 11/11/17 21:01 11/11/17 22:00 11/11/17 23:00 Temperature 98.8 F Pulse Rate 63 75 89 Respiratory Rate 16 18 Blood Pressure 110/71 Pulse Oximetry 99 11/11/17 23:59 11/12/17 00:00 11/12/17 01:00 Temperature Pulse Rate 68 70 Respiratory Rate Blood Pressure Pulse Oximetry 96 11/12/17 02:00 11/12/17 03:00 11/12/17 03:09 Temperature 98.2 F Pulse Rate 84 76 72 Respiratory Rate 16 17 Blood Pressure 102/70 Pulse Oximetry 98 11/12/17 03:10 11/12/17 04:00 11/12/17 05:00 Temperature Pulse Rate 67 82 Respiratory Rate Blood Pressure Pulse Oximetry 96 11/12/17 06:00 11/12/17 07:00 11/12/17 09:13 Temperature 97.8 F Pulse Rate 90 82 84 Respiratory Rate 18 18 Blood Pressure 123/83 Pulse Oximetry 96 98 Intake & Output 11/11/17 11/12/17 11/12/17 18:59 06:59 18:59 Intake Total 1260 / 1260 480 / 480 Output Total 850 / 850 Balance 1260 / 1260 -370 / -370 Weight 78.1 kg Intake: Oral 1260 / 1260 480 / 480 Output: Urine 850 / 850 Other: # Voids 7 Date of Last Bowel Movement 11/12/17 # Bowel Movements 1 Narrative: GENERAL: Elderly female on on room air. She is in no apparent distress. SKIN: Bruising on upper extremities. Cool and dry. HEAD: Atraumatic. Normocephalic. No temporal or scalp tenderness. NECK: Trachea midline. No JVD or lymphadenopathy. CARDIOVASCULAR: Irregular rate and rhythm without murmurs, gallops, or rubs. Heart rate 80s on monitor. 1+ lower extremity edema noted. RESPIRATORY: No increased work of breathing. RR ~14. Air movement improved. Minimal crackles at bilateral lung bases. GASTROINTESTINAL: Abdomen soft, non-tender, nondistended. Normal bowel sounds. MUSCULOSKELETAL: Extremities cool and dry without clubbing, cyanosis. SACRUM: erythema noted at sacrum with 1/5 cm superficial opening of the skin which is not draining and appears noninfected. PSYCHIATRIC: Appropriate mood and affect; insight and judgment normal. NEURO: alert and oriented x 3. No focal neurological deficit. Normal extremity sensation, ROM, and strength. Results Procedures completed during hospitalization: None Labs on day of discharge: Labs from last 24 hours 11/12/17 11/12/17 11/12/17 07:45 04:15 04:15 WBC 10.1 RBC 3.72 L Hgb 11.2 L Hct 34.2 L MCV 91.8 MCH 30.0 MCHC 32.6 RDW 17.4 H Plt Count 282 MPV 9.5 Neut % (Auto) 84.3 H Lymph % (Auto) 6.3 L Throckmorton % (Auto) 9.3 H Eos % (Auto) 0.0 Baso % (Auto) 0.1 Neut # (Auto) 8.5 H Lymph # (Auto) 0.6 L Th[place]morton # (Auto) 0.9 Eos # (Auto) 0.0 Baso # (Auto) 0.0 WBC Differential . Differential Comment Auto diff final Sodium Potassium Chloride Carbon Dioxide Anion Gap BUN Creatinine Estimated GFR POC Glucose 143 H Random Glucose Calcium Total Bilirubin AST ALT Alkaline Phosphatase B-Natriuretic Peptide 837 H Total Protein Albumin 11/12/17 11/11/17 11/11/17 04:15 20:13 17:54 WBC RBC Hgb Hct MCV MCH MCHC RDW Plt Count MPV Neut % (Auto) Lymph % (Auto) Th[place]morton % (Auto) Eos % (Auto) Baso % (Auto) Neut # (Auto) Lymph # (Auto) Th[place]morton # (Auto) Eos # (Auto) Baso # (Auto) WBC Differential Differential Comment Sodium 141 Potassium 3.9 Chloride 102 Carbon Dioxide 29.3 Anion Gap 10 BUN 64 H Creatinine 2.55 H Estimated GFR 18 L POC Glucose 283 H 206 H Random Glucose 142 H Calcium 8.8 Total Bilirubin 0.7 AST 95 H ALT 190 H Alkaline Phosphatase 94 B-Natriuretic Peptide Total Protein 6.6 Albumin 3.2 L 11/11/17 12:02 WBC RBC Hgb Hct MCV MCH MCHC RDW Plt Count MPV Neut % (Auto) Lymph % (Auto) Th[place]morton % (Auto) Eos % (Auto) Baso % (Auto) Neut # (Auto) Lymph # (Auto) Th[place]morton # (Auto) Eos # (Auto) Baso # (Auto) WBC Differential Differential Comment Sodium Potassium Chloride Carbon Dioxide Anion Gap BUN Creatinine Estimated GFR POC Glucose 160 H Random Glucose Calcium Total Bilirubin AST ALT Alkaline Phosphatase B-Natriuretic Peptide Total Protein Albumin - Impressions ITS Impressions Abdomen Ultrasound 11/06/17 00:00 CONCLUSION: Gallstones. Mild gallbladder wall thickening. Chest X-Ray 11/08/17 05:26 CONCLUSION: Increased bilateral lower lung zone opacity likely representing consolidation versus atelectasis. The change may also be somewhat technical as kyphotic positioning of the patient is noted. Chest CT 11/09/17 00:00 CONCLUSION: 1. Small bilateral pleural effusions with compressive atelectasis in both lung bases. 2. The upper lung valle are grossly clear. Head CT 11/09/17 00:00 CONCLUSION: 1. Atrophy otherwise negative for acute process. <Barbara Arredondo - Last Filed: 11/14/17 09:13> Date of admission: 11/06/17 01:51 Primary care physician: Priyank Freire MD, R2 DS: Diagnosis - Discharge Diagnosis (1) Acute exacerbation of CHF (congestive heart failure) Status: Acute (2) COPD (chronic obstructive pulmonary disease) Status: Chronic (3) Atrial fibrillation Status: Chronic (4) Diabetes mellitus type 2 with complications Status: Chronic (5) CKD (chronic kidney disease) stage 3, GFR 30-59 ml/min Status: Chronic (6) History of Clostridium difficile infection Status: Acute (7) Nutrition, metabolism, and development symptoms Status: Acute DS: Summary - Time Spent with Patient Total time spent providing and/or coordinating discharge services: Results - Impressions ITS Impressions Abdomen Ultrasound 11/06/17 00:00 CONCLUSION: Gallstones. Mild gallbladder wall thickening. Chest X-Ray 11/08/17 05:26 CONCLUSION: Increased bilateral lower lung zone opacity likely representing consolidation versus atelectasis. The change may also be somewhat technical as kyphotic positioning of the patient is noted. Chest CT 11/09/17 00:00 CONCLUSION: 1. Small bilateral pleural effusions with compressive atelectasis in both lung bases. 2. The upper lung valle are grossly clear. Head CT 11/09/17 00:00 CONCLUSION: 1. Atrophy otherwise negative for acute process. Addendum Ms Sosa will have her renal fxn checked as an outpt. She has required diuresis to prevent pulmonary edema but may start to get "a little dry". also discussed with her that her a fib was better controlled but still has some tachycardia and bradycardia. however, with her recent intubation and fragile state she does not want a pacemaker now Discharge Plan - Discharge Order Discharge Orders: Discharge Order (Routine); Ordered 11/12/17 Ordered By: Kylah Carter - Discharge Details Anticipated Discharge Date: 11/12/17 - Physicians Team Primary Care Provider: Priyank Freire Attending Provider: Barbara Arredondo Other Providers: Ever Roman MD ; Mat Guaman MD ; [facility],[place]
[2017-11-12 15:33] VITALS: O2SAT 99
[2017-11-12 17:05] VITALS: BP 113/77; TEMP 97.9
[2017-11-12 17:29] VITALS: PULSE 94
== END 2017-11-12 17:11 ==
LOC: NEPE 23:11 → NEDA 11-06 01:51 → HIMC 11-06 03:45 → HCIS 11-07 11:11
PROVIDERS: ADMIT Family Medicine; ATTEND Family Medicine
DX: J44.0 Chronic obstructive pulmonary disease with (acute) lower respiratory infection; Z95.5 Presence of coronary angioplasty implant and graft; E11.22 Type 2 diabetes mellitus with diabetic chronic kidney disease; Z79.84 Long term (current) use of oral hypoglycemic drugs; Z96.651 Presence of right artificial knee joint; L89.152 Pressure ulcer of sacral region, stage 2; R41.82 Altered mental status, unspecified; I13.0 Hypertensive heart and chronic kidney disease with heart failure and stage 1 through stage 4 chronic kidney disease, or unspecified chronic kidney disease; Z99.81 Dependence on supplemental oxygen; I25.10 Atherosclerotic heart disease of native coronary artery without angina pectoris; A41.9 Sepsis, unspecified organism; Z79.02 Long term (current) use of antithrombotics/antiplatelets; I50.23 Acute on chronic systolic (congestive) heart failure; J96.90 Respiratory failure, unspecified, unspecified whether with hypoxia or hypercapnia; N17.9 Acute kidney failure, unspecified; J18.9 Pneumonia, unspecified organism; E78.5 Hyperlipidemia, unspecified; Z95.1 Presence of aortocoronary bypass graft; F17.210 Nicotine dependence, cigarettes, uncomplicated; N18.3 Chronic kidney disease, stage 3 (moderate); J44.1 Chronic obstructive pulmonary disease with (acute) exacerbation

== ENCOUNTER 2018-01-30 21:52 | Inpatient (IN) ==
--- NOTE | 2018-01-30 22:16 | ED ---
HPI General Chief Complaint: Shortness of Breath/Dyspnea Stated Complaint: medical Time Seen by Provider: 01/30/18 22:07 History of Present Illness Patient is a 72-year-old female with history significant for CHF, COPD, A. fib, recent intubation in September 2017, and diabetes. She presented progressive worsening shortness of breath. Recent in NH and worsening SOB and EVAC placed on CPAP to transport , A-FIB RVR AND SLIGHTLY HYPOTENSIVE , Pt difficulty speaking thru CPAP mask therefore Hx is limited . ROS limited . During first hour in ER developed CP Related Data Home Medications Medication Instructions Recorded Confirmed diltiazem HCl 240 mg PO DAILY 01/22/18 01/30/18 famotidine 20 mg PO BID 01/22/18 01/30/18 ipratropium bromide 0.5 mg NEB Q6HR NEB PRN 01/22/18 01/30/18 oxycodone-acetaminophen 1 tab PO Q4-6H PRN 01/22/18 01/30/18 pregabalin 150 mg PO DAILY 01/22/18 01/30/18 acetaminophen 650 mg PO Q8H PRN 01/30/18 01/30/18 fluticasone-salmeterol [Advair 1 inh INHALATION Q12H 01/30/18 01/30/18 Diskus] lorazepam [Ativan] 0.5 mg PO Q4H PRN 01/30/18 01/30/18 nitroglycerin 0.4 mg SUBLINGUAL Q5-15M PRN 01/30/18 01/30/18 oxycodone 5 mg PO Q4-6H PRN 01/30/18 01/30/18 potassium chloride 10 meq PO BID 01/30/18 01/30/18 prochlorperazine maleate 10 mg PO Q6-8H PRN 01/30/18 01/30/18 Previous Rx's Medication Instructions Recorded furosemide 40 mg PO BID@0900,1800 #60 tab 11/12/17 metoprolol tartrate 50 mg PO BID #60 tab 11/12/17 Allergies Allergy/AdvReac Type Severity Reaction Status Date / Time No Known Allergies Allergy Verified 01/30/18 22:03 Review of Systems ROS Unobtainable ROS Unobtainable: unobtainable due to endotracheal tube (due to CPAP AND SOB ) PMFSH Social History Social History Substance History: No History of Abuse Second Hand Smoke Exposure: No Smoking Status: Current every day smoker Tobacco Type: Cigarettes How Often Do You Have a Drink Containing Alcohol: Never Recent Travel in [facility] within the Last 8 Weeks: No Recent Out of Country Travel within the Last 8 Weeks: No Immunization History Tetanus Immunization: Unsure Hx Influenza Vaccine This Season: No Exam Narrative Exam Narrative: GENERAL: Moderate respiratory distress CPAP on her face SKIN: Warm and dry. HEAD: Atraumatic. Normocephalic. EYES: Pupils equal and round. No scleral icterus. No injection or drainage. ENT: No nasal bleeding or discharge. Mucous membranes pink and moist. Mouth covered by CPAP mask NECK: Trachea midline. No JVD. CARDIOVASCULAR: Regular rate and rhythm. RESPIRATORY: Moderate respiratory distress GASTROINTESTINAL: Abdomen soft, non-tender, nondistended. Hepatic and splenic margins not palpable. MUSCULOSKELETAL: Extremities bilateral slight edema 1+ pitting bilateral NEUROLOGICAL: Awake and alert. No obvious cranial nerve deficits. Motor grossly within normal limits. Five out of 5 muscle strength in the arms and legs. Normal speech. PSYCHIATRIC: Appropriate mood and affect; insight and judgment normal. Course Initial Documented Vital Signs Temperature 97.7 F 01/30/18 21:57 Pulse Rate 155 H 01/30/18 21:57 Respiratory Rate 28 H 01/30/18 21:57 Blood Pressure 113/89 01/30/18 21:57 Pulse Oximetry 95 01/30/18 21:57 Last Documented Vital Signs Temperature 97.7 F 02/01/18 20:00 Pulse Rate 88 02/01/18 20:31 Respiratory Rate 14 02/01/18 20:31 Blood Pressure 100/56 L 02/01/18 20:00 Pulse Oximetry 100 02/01/18 20:31 Critical Care Time Critical Care Time: Yes Total Critical Care Time: 30 Attestation: Airway stabilization reevaluation evaluating her oxygenation reviewing her ABG medicating her with diltiazem and putting on a Cardizem drip admitting to the ICU keeping her on the CPAP evaluating chest x-ray BNP elevation admitted to the ICU Medical Decision Making MDM Narrative Medical decision making narrative: Is given Cardizem 10 with good results then another 5 is pushed and then she is put on 5 mg/h Cardizem drip the CPAP is helping her breathe better she is satting 95-99 she is admitted to the ICU after medical management in the ER critical care time is 30 minutes of critical care time in the ER Medical Screen Exam Complete: Yes Emergency Medical Condition: Yes Differential Diagnosis Differential Diagnosis: Differential diagnosis includes A. fib with RVR versus CHF versus COPD versus respiratory failure versus cardiac arrhythmia inducing decreased ventricular output causing hypotension of breath patient could have had a TN causing cardiac dysrhythmia the rapid A. fib could be causing a lack of Lab Data Result diagrams: 02/01/18 02:56 02/01/18 02:56 Lab Results 01/30/18 01/30/18 01/30/18 Range/Units 22:15 22:15 22:15 WBC 9.6 (4.0-11.0) th/mm3 RBC 4.02 (4.00-5.30) mil/mm3 Hgb 10.9 L (11.6-15.3) gm/dL Hct 35.2 (35.0-46.0) % MCV 87.7 (80.0-100.0) fL MCH 27.1 (27.0-34.0) pg MCHC 30.9 L (32.0-36.0) % RDW 17.3 H (11.6-17.2) % Plt Count 171 (150-450) th/mm3 MPV 10.5 (7.0-11.0) fL Neut % (Auto) 46.4 (16.0-70.0) % Lymph % (Auto) 36.0 (9.0-44.0) % [place] % (Auto) 14.5 H (0.0-8.0) % Eos % (Auto) 1.8 (0.0-4.0) % Baso % (Auto) 1.3 (0.0-2.0) % Neut # (Auto) 4.4 (1.8-7.7) th/mm3 Lymph # (Auto) 3.4 (1.0-4.8) th/mm3 [place] # (Auto) 1.4 H (0.0-0.9) th/mm3 Eos # (Auto) 0.2 (0.0-0.4) th/mm3 Baso # (Auto) 0.1 (0.0-0.2) th/mm3 WBC Differential . Differential Comment Auto diff final Puncture Site Patient Temperature VBG pH (7.360-7.400) VBG pCO2 (44-48) mmHG VBG pO2 (35-40) mmHG VBG HCO3 (22-26) mmol/L VBG O2 Saturation (70-76) % VBG O2 Content (9.0-17.0) Vol % VBG Base Excess (-2-2) mmol/L VBG Carboxyhemoglobin (0-4) % VBG Methemoglobin (0-2) % Hemoglobin (12.0-16.0) G/DL O2 Delivery Device Vent Setting Inspired O2 % Critical Value Sodium 138 (136-145) meq/L Potassium 4.0 (3.5-5.1) meq/L Chloride 99 (98-107) meq/L Carbon Dioxide 25.1 (21.0-32.0) meq/L Anion Gap 14 (5-15) meq/L BUN 20 H (7-18) mg/dL Creatinine 2.00 H (0.50-1.00) mg/dL Estimated GFR 24 L (>89) mL/min POC Glucose (68-110) mg/dl Random Glucose 219 H (74-106) mg/dL Calcium 8.7 (8.5-10.1) mg/dL Phosphorus (2.5-4.9) mg/dL Magnesium 2.2 (1.5-2.5) mg/dL Total Bilirubin 1.0 (0.2-1.0) mg/dL AST 52 H (15-37) U/L ALT 77 H (10-53) U/L Alkaline Phosphatase 104 (45-117) U/L Troponin I Less than 0.02 L (0.02-0.05) ng/mL B-Natriuretic Peptide 2432 H (0-100) pg/mL Total Protein 7.3 (6.4-8.2) g/dL Albumin 3.5 (3.4-5.0) g/dL Urine Color (Yellw/Straw) Urine Clarity (Clear) Urine pH (5.0-8.5) Ur Specific [place] (1.002-1.035) Urine Protein (Neg-Trace) mg/dL Urine Glucose (UA) (Negative) mg/dL Urine Ketones (Negative) mg/dL Urine Occult Blood (Negative) Urine Nitrate (Negative) Urine Bilirubin (Negative) Urine Urobilinogen (Less than 2) mg/dL Ur Leukocyte Esterase (Negative) Ur Squamous Epith Cells (0-5) /hpf Urine Bacteria (None) /hpf Urine Mucus (Occasional) /lpf Ur Microscopic Review Nasal Screen MRSA (PCR) (Negative) 01/30/18 01/31/18 01/31/18 Range/Units 22:48 00:50 02:45 WBC (4.0-11.0) th/mm3 RBC (4.00-5.30) mil/mm3 Hgb (11.6-15.3) gm/dL Hct (35.0-46.0) % MCV (80.0-100.0) fL MCH (27.0-34.0) pg MCHC (32.0-36.0) % RDW (11.6-17.2) % Plt Count (150-450) th/mm3 MPV (7.0-11.0) fL Neut % (Auto) (16.0-70.0) % Lymph % (Auto) (9.0-44.0) % [place] % (Auto) (0.0-8.0) % Eos % (Auto) (0.0-4.0) % Baso % (Auto) (0.0-2.0) % Neut # (Auto) (1.8-7.7) th/mm3 Lymph # (Auto) (1.0-4.8) th/mm3 [place] # (Auto) (0.0-0.9) th/mm3 Eos # (Auto) (0.0-0.4) th/mm3 Baso # (Auto) (0.0-0.2) th/mm3 WBC Differential Differential Comment Puncture Site Patient Temperature VBG pH (7.360-7.400) VBG pCO2 (44-48) mmHG VBG pO2 (35-40) mmHG VBG HCO3 (22-26) mmol/L VBG O2 Saturation (70-76) % VBG O2 Content (9.0-17.0) Vol % VBG Base Excess (-2-2) mmol/L VBG Carboxyhemoglobin (0-4) % VBG Methemoglobin (0-2) % Hemoglobin (12.0-16.0) G/DL O2 Delivery Device Vent Setting Inspired O2 % Critical Value Sodium (136-145) meq/L Potassium (3.5-5.1) meq/L Chloride (98-107) meq/L Carbon Dioxide (21.0-32.0) meq/L Anion Gap (5-15) meq/L BUN (7-18) mg/dL Creatinine (0.50-1.00) mg/dL Estimated GFR (>89) mL/min POC Glucose (68-110) mg/dl Random Glucose (74-106) mg/dL Calcium (8.5-10.1) mg/dL Phosphorus (2.5-4.9) mg/dL Magnesium (1.5-2.5) mg/dL Total Bilirubin (0.2-1.0) mg/dL AST (15-37) U/L ALT (10-53) U/L Alkaline Phosphatase (45-117) U/L Troponin I 0.15 H D (0.02-0.05) ng/mL B-Natriuretic Peptide (0-100) pg/mL Total Protein (6.4-8.2) g/dL Albumin (3.4-5.0) g/dL Urine Color Yellow (Yellw/Straw) Urine Clarity Clear (Clear) Urine pH 5.0 (5.0-8.5) Ur Specific [place] 1.003 (1.002-1.035) Urine Protein Negative (Neg-Trace) mg/dL Urine Glucose (UA) Negative (Negative) mg/dL Urine Ketones Negative (Negative) mg/dL Urine Occult Blood Negative (Negative) Urine Nitrate Negative (Negative) Urine Bilirubin Negative (Negative) Urine Urobilinogen Less than 2 (Less than 2) mg/dL Ur Leukocyte Esterase Negative (Negative) Ur Squamous Epith Cells <1 (0-5) /hpf Urine Bacteria Rare H (None) /hpf Urine Mucus Few H (Occasional) /lpf Ur Microscopic Review Not Reportable Nasal Screen MRSA (PCR) Not detected (Negative) 01/31/18 01/31/18 01/31/18 Range/Units 03:55 03:56 09:16 WBC (4.0-11.0) th/mm3 RBC (4.00-5.30) mil/mm3 Hgb (11.6-15.3) gm/dL Hct (35.0-46.0) % MCV (80.0-100.0) fL MCH (27.0-34.0) pg MCHC (32.0-36.0) % RDW (11.6-17.2) % Plt Count (150-450) th/mm3 MPV (7.0-11.0) fL Neut % (Auto) (16.0-70.0) % Lymph % (Auto) (9.0-44.0) % [place] % (Auto) (0.0-8.0) % Eos % (Auto) (0.0-4.0) % Baso % (Auto) (0.0-2.0) % Neut # (Auto) (1.8-7.7) th/mm3 Lymph # (Auto) (1.0-4.8) th/mm3 Stan[place] # (Auto) (0.0-0.9) th/mm3 Eos # (Auto) (0.0-0.4) th/mm3 Baso # (Auto) (0.0-0.2) th/mm3 WBC Differential Differential Comment Puncture Site Patient Temperature VBG pH (7.360-7.400) VBG pCO2 (44-48) mmHG VBG pO2 (35-40) mmHG VBG HCO3 (22-26) mmol/L VBG O2 Saturation (70-76) % VBG O2 Content (9.0-17.0) Vol % VBG Base Excess (-2-2) mmol/L VBG Carboxyhemoglobin (0-4) % VBG Methemoglobin (0-2) % Hemoglobin (12.0-16.0) G/DL O2 Delivery Device Vent Setting Inspired O2 % Critical Value Sodium (136-145) meq/L Potassium (3.5-5.1) meq/L Chloride (98-107) meq/L Carbon Dioxide (21.0-32.0) meq/L Anion Gap (5-15) meq/L BUN (7-18) mg/dL Creatinine (0.50-1.00) mg/dL Estimated GFR (>89) mL/min POC Glucose 120 H 101 (68-110) mg/dl Random Glucose (74-106) mg/dL Calcium (8.5-10.1) mg/dL Phosphorus (2.5-4.9) mg/dL Magnesium (1.5-2.5) mg/dL Total Bilirubin (0.2-1.0) mg/dL AST (15-37) U/L ALT (10-53) U/L Alkaline Phosphatase (45-117) U/L Troponin I 1.02 H* D (0.02-0.05) ng/mL B-Natriuretic Peptide (0-100) pg/mL Total Protein (6.4-8.2) g/dL Albumin (3.4-5.0) g/dL Urine Color (Yellw/Straw) Urine Clarity (Clear) Urine pH (5.0-8.5) Ur Specific [place] (1.002-1.035) Urine Protein (Neg-Trace) mg/dL Urine Glucose (UA) (Negative) mg/dL Urine Ketones (Negative) mg/dL Urine Occult Blood (Negative) Urine Nitrate (Negative) Urine Bilirubin (Negative) Urine Urobilinogen (Less than 2) mg/dL Ur Leukocyte Esterase (Negative) Ur Squamous Epith Cells (0-5) /hpf Urine Bacteria (None) /hpf Urine Mucus (Occasional) /lpf Ur Microscopic Review Nasal Screen MRSA (PCR) (Negative) 01/31/18 01/31/18 01/31/18 Range/Units 12:17 16:09 21:00 WBC (4.0-11.0) th/mm3 RBC (4.00-5.30) mil/mm3 Hgb (11.6-15.3) gm/dL Hct (35.0-46.0) % MCV (80.0-100.0) fL MCH (27.0-34.0) pg MCHC (32.0-36.0) % RDW (11.6-17.2) % Plt Count (150-450) th/mm3 MPV (7.0-11.0) fL Neut % (Auto) (16.0-70.0) % Lymph % (Auto) (9.0-44.0) % [place] % (Auto) (0.0-8.0) % Eos % (Auto) (0.0-4.0) % Baso % (Auto) (0.0-2.0) % Neut # (Auto) (1.8-7.7) th/mm3 Lymph # (Auto) (1.0-4.8) th/mm3 [place] # (Auto) (0.0-0.9) th/mm3 Eos # (Auto) (0.0-0.4) th/mm3 Baso # (Auto) (0.0-0.2) th/mm3 WBC Differential Differential Comment Puncture Site Patient Temperature VBG pH (7.360-7.400) VBG pCO2 (44-48) mmHG VBG pO2 (35-40) mmHG VBG HCO3 (22-26) mmol/L VBG O2 Saturation (70-76) % VBG O2 Content (9.0-17.0) Vol % VBG Base Excess (-2-2) mmol/L VBG Carboxyhemoglobin (0-4) % VBG Methemoglobin (0-2) % Hemoglobin (12.0-16.0) G/DL O2 Delivery Device Vent Setting Inspired O2 % Critical Value Sodium (136-145) meq/L Potassium (3.5-5.1) meq/L Chloride (98-107) meq/L Carbon Dioxide (21.0-32.0) meq/L Anion Gap (5-15) meq/L BUN (7-18) mg/dL Creatinine (0.50-1.00) mg/dL Estimated GFR (>89) mL/min POC Glucose 143 H 87 160 H (68-110) mg/dl Random Glucose (74-106) mg/dL Calcium (8.5-10.1) mg/dL Phosphorus (2.5-4.9) mg/dL Magnesium (1.5-2.5) mg/dL Total Bilirubin (0.2-1.0) mg/dL AST (15-37) U/L ALT (10-53) U/L Alkaline Phosphatase (45-117) U/L Troponin I (0.02-0.05) ng/mL B-Natriuretic Peptide (0-100) pg/mL Total Protein (6.4-8.2) g/dL Albumin (3.4-5.0) g/dL Urine Color (Yellw/Straw) Urine Clarity (Clear) Urine pH (5.0-8.5) Ur Specific [place] (1.002-1.035) Urine Protein (Neg-Trace) mg/dL Urine Glucose (UA) (Negative) mg/dL Urine Ketones (Negative) mg/dL Urine Occult Blood (Negative) Urine Nitrate (Negative) Urine Bilirubin (Negative) Urine Urobilinogen (Less than 2) mg/dL Ur Leukocyte Esterase (Negative) Ur Squamous Epith Cells (0-5) /hpf Urine Bacteria (None) /hpf Urine Mucus (Occasional) /lpf Ur Microscopic Review Nasal Screen MRSA (PCR) (Negative) 01/31/18 01/31/18 02/01/18 Range/Units 23:37 23:51 02:56 WBC 4.5 (4.0-11.0) th/mm3 RBC 3.71 L (4.00-5.30) mil/mm3 Hgb 9.9 L (11.6-15.3) gm/dL Hct 31.9 L (35.0-46.0) % MCV 85.8 (80.0-100.0) fL MCH 26.6 L (27.0-34.0) pg MCHC 31.0 L (32.0-36.0) % RDW 17.0 (11.6-17.2) % Plt Count 132 L (150-450) th/mm3 MPV 10.2 (7.0-11.0) fL Neut % (Auto) 59.9 (16.0-70.0) % Lymph % (Auto) 21.6 (9.0-44.0) % [place] % (Auto) 16.4 H (0.0-8.0) % Eos % (Auto) 1.3 (0.0-4.0) % Baso % (Auto) 0.8 (0.0-2.0) % Neut # (Auto) 2.7 (1.8-7.7) th/mm3 Lymph # (Auto) 1.0 (1.0-4.8) th/mm3 [place] # (Auto) 0.7 (0.0-0.9) th/mm3 Eos # (Auto) 0.1 (0.0-0.4) th/mm3 Baso # (Auto) 0.0 (0.0-0.2) th/mm3 WBC Differential . Differential Comment Auto diff final Puncture Site Right radial Patient Temperature 98.6 VBG pH 7.32 L (7.360-7.400) VBG pCO2 51 H (44-48) mmHG VBG pO2 44 H (35-40) mmHG VBG HCO3 26 (22-26) mmol/L VBG O2 Saturation 69 L (70-76) % VBG O2 Content 10.3 (9.0-17.0) Vol % VBG Base Excess 0.4 (-2-2) mmol/L VBG Carboxyhemoglobin 1.9 (0-4) % VBG Methemoglobin 0.6 (0-2) % Hemoglobin 10.7 L (12.0-16.0) G/DL O2 Delivery Device Bipap Vent Setting 10/5 Inspired O2 50 % Critical Value No Sodium (136-145) meq/L Potassium (3.5-5.1) meq/L Chloride (98-107) meq/L Carbon Dioxide (21.0-32.0) meq/L Anion Gap (5-15) meq/L BUN (7-18) mg/dL Creatinine (0.50-1.00) mg/dL Estimated GFR (>89) mL/min POC Glucose 109 (68-110) mg/dl Random Glucose (74-106) mg/dL Calcium (8.5-10.1) mg/dL Phosphorus (2.5-4.9) mg/dL Magnesium (1.5-2.5) mg/dL Total Bilirubin (0.2-1.0) mg/dL AST (15-37) U/L ALT (10-53) U/L Alkaline Phosphatase (45-117) U/L Troponin I (0.02-0.05) ng/mL B-Natriuretic Peptide (0-100) pg/mL Total Protein (6.4-8.2) g/dL Albumin (3.4-5.0) g/dL Urine Color (Yellw/Straw) Urine Clarity (Clear) Urine pH (5.0-8.5) Ur Specific [place] (1.002-1.035) Urine Protein (Neg-Trace) mg/dL Urine Glucose (UA) (Negative) mg/dL Urine Ketones (Negative) mg/dL Urine Occult Blood (Negative) Urine Nitrate (Negative) Urine Bilirubin (Negative) Urine Urobilinogen (Less than 2) mg/dL Ur Leukocyte Esterase (Negative) Ur Squamous Epith Cells (0-5) /hpf Urine Bacteria (None) /hpf Urine Mucus (Occasional) /lpf Ur Microscopic Review Nasal Screen MRSA (PCR) (Negative) 02/01/18 02/01/1802/01/18 Range/Units 02:56 03:34 08:56 WBC (4.0-11.0) th/mm3 RBC (4.00-5.30) mil/mm3 Hgb (11.6-15.3) gm/dL Hct (35.0-46.0) % MCV (80.0-100.0) fL MCH (27.0-34.0) pg MCHC (32.0-36.0) % RDW (11.6-17.2) % Plt Count (150-450) th/mm3 MPV (7.0-11.0) fL Neut % (Auto) (16.0-70.0) % Lymph % (Auto) (9.0-44.0) % [place] % (Auto) (0.0-8.0) % Eos % (Auto) (0.0-4.0) % Baso % (Auto) (0.0-2.0) % Neut # (Auto) (1.8-7.7) th/mm3 Lymph # (Auto) (1.0-4.8) th/mm3 [place] # (Auto) (0.0-0.9) th/mm3 Eos # (Auto) (0.0-0.4) th/mm3 Baso # (Auto) (0.0-0.2) th/mm3 WBC Differential Differential Comment Puncture Site Patient Temperature VBG pH (7.360-7.400) VBG pCO2 (44-48) mmHG VBG pO2 (35-40) mmHG VBG HCO3 (22-26) mmol/L VBG O2 Saturation (70-76) % VBG O2 Content (9.0-17.0) Vol % VBG Base Excess (-2-2) mmol/L VBG Carboxyhemoglobin (0-4) % VBG Methemoglobin (0-2) % Hemoglobin (12.0-16.0) G/DL O2 Delivery Device Vent Setting Inspired O2 % Critical Value Sodium 139 (136-145) meq/L Potassium 3.4 L (3.5-5.1) meq/L Chloride 99 (98-107) meq/L Carbon Dioxide 28.4 (21.0-32.0) meq/L Anion Gap 12 (5-15) meq/L BUN 26 H (7-18) mg/dL Creatinine 1.98 H (0.50-1.00) mg/dL Estimated GFR 25 L (>89) mL/min POC Glucose 114 H 91 (68-110) mg/dl Random Glucose 93 D (74-106) mg/dL Calcium 8.7 (8.5-10.1) mg/dL Phosphorus 3.6 (2.5-4.9) mg/dL Magnesium 1.9 (1.5-2.5) mg/dL Total Bilirubin (0.2-1.0) mg/dL AST (15-37) U/L ALT (10-53) U/L Alkaline Phosphatase (45-117) U/L Troponin I (0.02-0.05) ng/mL B-Natriuretic Peptide (0-100) pg/mL Total Protein (6.4-8.2) g/dL Albumin (3.4-5.0) g/dL Urine Color (Yellw/Straw) Urine Clarity (Clear) Urine pH (5.0-8.5) Ur Specific [place] (1.002-1.035) Urine Protein (Neg-Trace) mg/dL Urine Glucose (UA) (Negative) mg/dL Urine Ketones (Negative) mg/dL Urine Occult Blood (Negative) Urine Nitrate (Negative) Urine Bilirubin (Negative) Urine Urobilinogen (Less than 2) mg/dL Ur Leukocyte Esterase (Negative) Ur Squamous Epith Cells (0-5) /hpf Urine Bacteria (None) /hpf Urine Mucus (Occasional) /lpf Ur Microscopic Review Nasal Screen MRSA (PCR) (Negative) 02/01/18 02/01/18 02/01/18 Range/Units 13:02 16:30 19:42 WBC (4.0-11.0) th/mm3 RBC (4.00-5.30) mil/mm3 Hgb (11.6-15.3) gm/dL Hct (35.0-46.0) % MCV (80.0-100.0) fL MCH (27.0-34.0) pg MCHC (32.0-36.0) % RDW (11.6-17.2) % Plt Count (150-450) th/mm3 MPV (7.0-11.0) fL Neut % (Auto) (16.0-70.0) % Lymph % (Auto) (9.0-44.0) % [place] % (Auto) (0.0-8.0) % Eos % (Auto) (0.0-4.0) % Baso % (Auto) (0.0-2.0) % Neut # (Auto) (1.8-7.7) th/mm3 Lymph # (Auto) (1.0-4.8) th/mm3 [place] # (Auto) (0.0-0.9) th/mm3 Eos # (Auto) (0.0-0.4) th/mm3 Baso # (Auto) (0.0-0.2) th/mm3 WBC Differential Differential Comment Puncture Site Patient Temperature VBG pH (7.360-7.400) VBG pCO2 (44-48) mmHG VBG pO2 (35-40) mmHG VBG HCO3 (22-26) mmol/L VBG O2 Saturation (70-76) % VBG O2 Content (9.0-17.0) Vol % VBG Base Excess (-2-2) mmol/L VBG Carboxyhemoglobin (0-4) % VBG Methemoglobin (0-2) % Hemoglobin (12.0-16.0) G/DL O2 Delivery Device Vent Setting Inspired O2 % Critical Value Sodium (136-145) meq/L Potassium (3.5-5.1) meq/L Chloride (98-107) meq/L Carbon Dioxide (21.0-32.0) meq/L Anion Gap (5-15) meq/L BUN (7-18) mg/dL Creatinine (0.50-1.00) mg/dL Estimated GFR (>89) mL/min POC Glucose 125 H 154 H 176 H (68-110) mg/dl Random Glucose (74-106) mg/dL Calcium (8.5-10.1) mg/dL Phosphorus (2.5-4.9) mg/dL Magnesium (1.5-2.5) mg/dL Total Bilirubin (0.2-1.0) mg/dL AST (15-37) U/L ALT (10-53) U/L Alkaline Phosphatase (45-117) U/L Troponin I (0.02-0.05) ng/mL B-Natriuretic Peptide (0-100) pg/mL Total Protein (6.4-8.2) g/dL Albumin (3.4-5.0) g/dL Urine Color (Yellw/Straw) Urine Clarity (Clear) Urine pH (5.0-8.5) Ur Specific [place] (1.002-1.035) Urine Protein (Neg-Trace) mg/dL Urine Glucose (UA) (Negative) mg/dL Urine Ketones (Negative) mg/dL Urine Occult Blood (Negative) Urine Nitrate (Negative) Urine Bilirubin (Negative) Urine Urobilinogen (Less than 2) mg/dL Ur Leukocyte Esterase (Negative) Ur Squamous Epith Cells (0-5) /hpf Urine Bacteria (None) /hpf Urine Mucus (Occasional) /lpf Ur Microscopic Review Nasal Screen MRSA (PCR) (Negative) Imaging Data Radiologist's impression: Chest X-Ray 01/30/18 22:07 CONCLUSION: Cardiomegaly. Diffuse increased interstitial markings likely from edema. Mild bilateral pleural effusions. Chest X-Ray 02/01/18 00:00 CONCLUSION: 1. Cardiomegaly with positive fluid balance. 2. Mild bibasilar airspace disease and associated small bilateral pleural effusions. Discharge Plan Discharge Disposition Patient Disposition: 30 Still Patient Physicians Team ED Provider: Gulshan Loco Primary Care Provider: Priyank Freire Attending Provider: Brittany Kirkland Other Providers: Jenny Meng Discharge Interventions Interventions: ED Discharge Assessment Last Done: 01/31/18 02:48 Status ED Status: Left Department Discharge Information Discharge Date/Time: 01/31/18 02:48
[2018-01-30 22:21] LABS: Baso # (Auto) 0.1 th/mm3 (0.0-0.2); Baso % (Auto) 1.3 % (0.0-2.0); Eos # (Auto) 0.2 th/mm3 (0.0-0.4); Eos % (Auto) 1.8 % (0.0-4.0); Hematocrit 35.2 % (35.0-46.0); Hemoglobin 10.9 gm/dL (11.6-15.3); Lymph # (Auto) 3.4 th/mm3 (1.0-4.8); Mean Corpuscular Hemoglobin 27.1 pg (27.0-34.0); Mean Corpuscular Volume 87.7 fL (80.0-100.0); Mean Platelet Volume 10.5 fL (7.0-11.0); Mono # (Auto) 1.4 th/mm3 (0.0-0.9); Mono % (Auto) 14.5 % (0.0-8.0); Neut # (Auto) 4.4 th/mm3 (1.8-7.7); Neut % (Auto) 46.4 % (16.0-70.0); Platelet Count 171 th/mm3 (150-450); Red Blood Count 4.02 mil/mm3 (4.00-5.30); Red Cell Distribution Width 17.3 % (11.6-17.2); White Blood Count 9.6 th/mm3 (4.0-11.0)
[2018-01-30 22:23] LABS: Mean Corpuscular HGB Conc 30.9 % (32.0-36.0)
[2018-01-30 22:40] LABS: Alanine Aminotransferase 77 U/L (10-53); Albumin 3.5 g/dL (3.4-5.0); Anion Gap 14 meq/L (5-15); Aspartate Aminotransferase 52 U/L (15-37); Blood Urea Nitrogen 20 mg/dL (7-18); Calcium 8.7 mg/dL (8.5-10.1); Carbon Dioxide 25.1 meq/L (21.0-32.0); Chloride 99 meq/L (98-107); Glomerular Filtration Rate 24 mL/min (>89); Glucose,Random 219 mg/dL (74-106); Magnesium 2.2 mg/dL (1.5-2.5); Sodium 138 meq/L (136-145)
[2018-01-30] MEDS ORDERED: dilTIAZem Inj 125 MG in Sodium Chlor 0.9% Inj 100 ML IV.CONT PRN (22:42)
[2018-01-30 22:43] LABS: Alkaline Phosphatase 104 U/L (45-117); Total Protein 7.3 g/dL (6.4-8.2)
[2018-01-30] MEDS ORDERED: Morphine Inj 4 MG/ML Vial IV.PUSH ONE (22:51)
[2018-01-30 23:04] LABS: Bacteria,Urine Rare /hpf; Bilirubin,Urine Negative (Negative); Clarity,Urine Clear (Clear); Color,Urine Yellow (Yellw/Straw); Glucose,Urine (UA) Negative (Negative); Leukocyte Esterase,Urine Negative (Negative); Mucus,Urine Few /lpf (Occasional); Nitrite,Urine Negative (Negative); Specific Gravity,Urine 1.003 (1.002-1.035); Squamous Epithelial Cell,Urine <1 /hpf (0-5)
--- NOTE | 2018-01-30 23:41 | XR ---
EXAM DATE: 01/30/2018 10:07 PM EDT AGE/SEX: 72 years / Female INDICATIONS: Chest pain, shortness of breath. CLINICAL DATA: This is the patient's initial encounter. Patient reports that signs and symptoms have been present for 1 day and indicates a pain score of 5/10. MEDICAL/SURGICAL HISTORY: Hypertension. Chronic obstructive pulmonary disease. Diabetes melli tus type II. Myocardial infarction. Congestive heart failure. CABG. Coronary artery stent. [place] [facility] [place] 1[place]/2017. . FINDINGS: The patient is status post sternotomy. The heart size is enlarged. The lungs demonstrate diffuse incr eased interstitial markings. There appear to be mild bilateral pleural effusions. Surgical hardware s een in the lumbar spine. CONCLUSION: Cardiomegaly. Diffuse increased interstitial markings likely from edema. Mild bilateral pleural effusions. Electronically signed by: Jhony Cabrera MD 01/30/2018 11:40 PM EDT
[2018-01-31 00:12] LABS: VBG Base Excess 0.4 mmol/L (-2-2); VBG Blood Gas Oxygen Content 10.3 Vol % (9.0-17.0); VBG PCO2 51 mmHG (44-48); VBG PH 7.32 (7.360-7.400); VBG PO2 44 mmHG (35-40)
--- NOTE | 2018-01-31 00:31 | P.HPCC ---
History of Present Illness Service: Critical care medicine Primary Care Physician: Priyank Freire MD, R3 Chief Complaint: Shortness of breath History of Present Illness: 72-year-old female with past medical history of COPD, hypertension, coronary artery disease with remote prior CABG, prior stents, CHF, atrial fibrillation, chronic kidney disease stage III, episode of respiratory failure requiring intubation in September of 2017, ongoing tobacco abuse, peripheral arterial disease. She states she developed shortness of breath, chest pressure (moderate , non-pleuritic, substernal, non radiating) and slight nonproductive cough this evening. No fever, chills, nausea, vomiting, or diaphoresis. EVAC noted bilateral rales and initiated CPAP and Lasix 80mg IV. She was transitioned to BIPAP in the ED. She was in Afib RVR rate 150s and was given Cardizem 10 mg IV and then started on Cardizem drip. NTG paste applied. CXR showed cardiomegaly and pulmonary edema. BNP 2400, troponin 0.02. She feels improved, asking for something to drink. States she desires DNR/DNI. States she ambulates very minimally due to generalized weakness. Mostly uses a wheelchair. Inpatient Certification: I certify that the inpatient services were ordered in accordance with Medicare regulations governing the order. This includes certification that hospital inpatient services are reasonable and necessary and in the case of services not specified as inpatient-only under 42 CFR 419.22(n), that they are appropriately provided as inpatient services in accordance to with the 2-midnight benchmark under 43 CFR 412.3(e) Review of Systems All other systems reviewed negative except as stated in HPI PMFSH - History History Provided By: Patient, Cheesemaker Helper / EMT - Medical History Medical History: Medical History (Last Reviewed 01/31/18 @ 01:09 by Brittany Kirkland MD) Afib Onset Date: Unknown CHF (congestive heart failure) Onset Date: Unknown COPD (chronic obstructive pulmonary disease) Onset Date: Unknown Chronic kidney disease (CKD) Onset Date: Unknown Clostridium difficile infection Onset Date: ~09/24/17 Diabetes Onset Date: Unknown Esophageal dilatation Onset Date: Unknown History of hysterectomy Onset Date: Unknown History of left heart catheterization Onset Date: ~08/02/17 Respiratory failure requiring intubation Onset Date: ~09/24/17 - Surgical History Surgical History: Surgical History (Last Updated 01/31/18 @ 01:10 by Brittany Kirkland MD) Hx of cataract surgery Previous back surgery S/P bunionectomy History of intravascular stent placement Onset Date: ~2015 History of total right knee replacement S/P CABG x 3 Onset Date: ~2004 - Family History Family History: Family History (Last Updated 01/31/18 @ 01:11 by Brittany Kirkland MD) Mother Ovarian cancer Father Diabetes mellitus with complication - Tobacco History Second Hand Smoke Exposure: No Tobacco Use In Past 30 Days: Yes Smoking Status: Current every day smoker Tobacco Type: Cigarettes - Alcohol History How Often Do You Have a Drink Containing Alcohol: Never - Substance Use History Substance History: No History of Abuse - Travel History Recent Travel in the [place] Within the Last 8 Weeks: No Recent Travel Out of the Country Within the Last 8 Weeks: No - Immunization History Tetanus Immunization: Unsure Hx Influenza Vaccine This Season: No Medications and Allergies Active Medications: Active Medications Diltiazem HCl 125 mg/ Sodium (Chloride) 125 mls @ 5 mls/hr IV.CONT TITRATE PRN ; Protocol PRN Reason: Per Protocol Last Admin: 01/30/18 23:40 Dose: 5 mg/hr, 5 mls/hr Allergies Allergy/AdvReac Type Severity Reaction Status Date / Time No Known Allergies Allergy Verified 01/30/18 22:03 Home Medications Medication Instructions Recorded Confirmed Type diltiazem HCl 240 mg PO DAILY 01/22/18 01/30/18 History famotidine 20 mg PO BID 01/22/18 01/30/18 History ipratropium bromide 0.5 mg NEB Q6HR NEB PRN 01/22/18 01/30/18 History oxycodone-acetaminophen 1 tab PO Q4-6H PRN 01/22/18 01/30/18 History pregabalin 150 mg PO DAILY 01/22/18 01/30/18 History acetaminophen 650 mg PO Q8H PRN 01/30/18 01/30/18 History fluticasone-salmeterol [Advair 1 inh INHALATION Q12H 01/30/18 01/30/18 History Diskus] lorazepam [Ativan] 0.5 mg PO Q4H PRN 01/30/18 01/30/18 History nitroglycerin 0.4 mg SUBLINGUAL Q5-15M PRN 01/30/18 01/30/18 History oxycodone 5 mg PO Q4-6H PRN 01/30/18 01/30/18 History potassium chloride 10 meq PO BID 01/30/18 01/30/18 History prochlorperazine maleate 10 mg PO Q6-8H PRN 01/30/18 01/30/18 History Results - Labs CBC & Chem 7: 01/30/18 22:15 01/30/18 22:15 Labs: Short CBC 01/30/18 Range/Units 22:15 WBC 9.6 (4.0-11.0) th/mm3 Hgb 10.9 L (11.6-15.3) gm/dL Hct 35.2 (35.0-46.0) % Plt Count 171 (150-450) th/mm3 BMP 01/30/18 22:15 Sodium 138 Potassium 4.0 Chloride 99 Carbon Dioxide 25.1 BUN 20 H Creatinine 2.00 H Calcium 8.7 Cardiac Enzymes 01/30/18 Range/Units 22:15 Troponin I Less than 0.02 L (0.02-0.05) ng/mL Liver Function 01/30/18 Range/Units 22:15 Total Bilirubin 1.0 (0.2-1.0) mg/dL AST 52 H (15-37) U/L ALT 77 H (10-53) U/L Alkaline Phosphatase 104 (45-117) U/L Albumin 3.5 (3.4-5.0) g/dL Urine 01/30/18 Range/Units 22:48 Urine Color Yellow (Yellw/Straw) Urine Clarity Clear (Clear) Urine pH 5.0 (5.0-8.5) Ur Specific Sprakers 1.003 (1.002-1.035) Urine Protein Negative (Neg-Trace) mg/dL Urine Glucose (UA) Negative (Negative) mg/dL - Imaging Impressions Chest X-Ray 01/30/18 22:07 CONCLUSION: Cardiomegaly. Diffuse increased interstitial markings likely from edema. Mild bilateral pleural effusions. Exam Vital signs: Vital Signs 01/30/18 21:57 01/30/18 22:02 01/30/18 22:03 Temperature 97.7 F Pulse Rate 155 H 129 H Respiratory Rate 28 H 28 H Blood Pressure 113/89 105/76 Pulse Oximetry 95 99 97 01/30/18 22:09 01/30/18 22:35 01/30/18 22:51 Temperature Pulse Rate Respiratory Rate Blood Pressure Pulse Oximetry 99 97 98 01/30/18 23:13 01/31/18 00:06 Temperature Pulse Rate 127 H 105 H Respiratory Rate 30 H 26 H Blood Pressure 126/71 119/72 Pulse Oximetry 98 97 Intake & Output 01/30/18 01/30/18 01/31/18 06:59 18:59 06:59 Weight 80 kg Narrative: GENERAL: Overweight, pleasant female who is on Bipap, alert and conversant. SKIN: Warm and dry, adequately perfused. Ecchymosis left forearm. HEAD: Atraumatic. Normocephalic. EYES: Pupils equal and round, 3 mm reactive. No scleral icterus. No injection or drainage. ENT: Bipap mask in place, removed at one point to speak to her. Mucous membranes dry. There is a single prolene suture in left upper lip at the vermilion border. Healing ecchymosis overlying left cheek. NECK: Trachea midline. No JVD. CARDIOVASCULAR: irregularly irregular, rate 110-120. RESPIRATORY: On bipap, generally comfortable appearing without accessory muscle use. Diminished bilaterally, rales bibasilar, slight wheeze GASTROINTESTINAL: Abdomen soft, non-tender, nondistended. Supers pubic scar well-healed. Bowel sounds present. MUSCULOSKELETAL: Extremities without clubbing, cyanosis. Scars bilateral feet from prior bunionectomy. 1+ edema right lower extremity. NEUROLOGICAL: Awake and alert, oriented to person, place, circumstance. No obvious cranial nerve deficits. Motor grossly within normal limits. Normal speech. Caprini VTE Risk Assessment Caprini VTE Risk Assessment: Moderate/High Risk (score >= 2) Caprini Risk Assessment Model: Point Value = 1 Point Value = 2 Point Value = 3 Point Value = 5 Age 41-60 Minor surgery BMI > 25 kg/m2 Swollen legs Varicose veins or History of unexplained or recurrent spontaneous Oral contraceptives or hormone replacement Sepsis (< 1 month) Serious lung disease, including pneumonia (< 1 month) Abnormal pulmonary function Acute myocardial infarction Congestive heart failure (< 1 month) History of inflammatory bowel disease Medical patient at bed rest Age 61-74 Arthroscopic surgery Major open surgery (> 45 min) Laparoscopic surgery (> 45 min) Malignancy Confined to bed (> 72 hours) Immobilizing plaster cast Central venous access Age >= 75 History of VTE Family history of VTE Factor V Leiden Prothrombin [id number] Lupus anticoagulant Anticardiolipin antibodies Elevated serum homocysteine Heparin-induced thrombocytopenia Other congenital or acquired thrombophilia Stroke (< 1 month) Elective arthroplasty Hip, pelvis, or leg fracture Acute spinal cord injury (< 1 month) Prophylaxis Regimen: Total Risk Factor Score Risk Level Prophylaxis Regimen 0-1 Low Early ambulation 2 Moderate Order ONE of the following: *Sequential Compression Device (SCD) *Heparin 5000 units SQ BID 3-4 Higher Order ONE of the following medications: *Heparin 5000 units SQ TID *Enoxaparin/Lovenox 40 mg SQ daily (WT < 150 kg, CrCl > 30 mL/min) *Enoxaparin/Lovenox 30 mg SQ daily (WT < 150 kg, CrCl > 10-29 mL/min) *Enoxaparin/Lovenox 30 mg SQ BID (WT < 150 kg, CrCl > 30 mL/min) AND/OR *Sequential Compression Device (SCD) 5 or more Highest Order ONE of the following medications: *Heparin 5000 units SQ TID (Preferred with Epidurals) *Enoxaparin/Lovenox 40 mg SQ daily (WT < 150 kg, CrCl > 30 mL/min) *Enoxaparin/Lovenox 30 mg SQ daily (WT < 150 kg, CrCl > 10-29 mL/min) *Enoxaparin/Lovenox 30 mg SQ BID (WT < 150 kg, CrCl > 30 mL/min) AND *Sequential Compression Device (SCD) Assessment and Plan - Assessment and Plan Plan: NEURO: Peripheral neuropathy Chronic pain Continue Lyrica 150 mg p.o. daily Continue oxycodone as needed for pain. Morphine as needed for breakthrough pain RESP: Acute hypoxemic and hypercapnic respiratory failure on BiPAP Pulmonary edema COPD Ongoing tobacco abuse DuoNeb every 6 hours. Albuterol every 2 hours. Continue fluticasone/salmeterol 250/51 1 puff q 12 hours. Tobacco cessation counseling. Diuresis as per below Bipap 10/5 50%, wean as tolerated CV: Atrial fibrillation with RVR Acute on chronic systolic heart failure CAD with prior CABG and stents Peripheral arterial disease Cardizem drip, wean as tolerated. Cardizem 240 mg po daily in am. Metoprolol 50 mg po bid. Add digoxin if needed for rate control. NTG paste on chest now Continue Brilinta 90 mg po bid, Change Eliquis to 2.5 mg bid based on renal function. Lasix 80 mg IV prior to arrival. Lasix 40 mg IV q8. Monitor UOP 2D echo 09/10/17mildly dilated LV. Ejection fraction 35-40% with global dysfunction. Moderate to severe left atrial dilatation, moderate right atrial dilatation. Pulmonary artery pressure 44 mmHg. GI: Obesity ice chips/clear liquids. Advance heart healthy diet when respiratory status improves. GERD on famotidine chronically bowel regimen FEN/RENAL: Chronic kidney disease stage III Creatinine is 2.0 and baseline is around 1.6-2.5. Monitor BMP/electrolytes and replace as indicated. Monitor intake and output. Purewick catheter. ID: Monitor for signs and symptoms of infection. UA is negative. No leukocytosis or fever. HEME: Chronic anemia Chronic anticoagulation with Eliquis Monitor CBC SKIN: Suture in left lip from 01/22. Will request nurse removal. ENDO: Diabetes mellitus Monitor bedside every 4 hours and administer low-dose insulin sliding scale as indicated. PROPH: SCDs for DVT prophylaxis. Eliquis provide DVT prophylaxis.. Famotidine for stress ulcer prophylaxis. ACCESS: Peripheral IV providing adequate access at this time. DNR Patient is capacitated for medical decision-making. She states that she does not want to be intubated "even if it means she will ". She states she wishes to be DNR. Patient is on hospice. Noted Dr. Loco has placed routine hospice consult. Level 3 H&P
[2018-01-31] MEDS ORDERED: Acetaminophen 325 MG Tablet PO PRN (00:36)
[2018-01-31] MEDS ORDERED: Bisacodyl 10 MG Supp RECTAL PRN (00:36)
[2018-01-31] MEDS ORDERED: Heparin - SQ 10,000 UNITS/ML Vial SQ SCH (00:45)
[2018-01-31] MEDS ORDERED: LORazepam 0.5 MG Tablet PO PRN (00:47)
[2018-01-31] MEDS ORDERED: Non-Formulary Drug (Fluticasone-Salmeterol [Advair Diskus] 1 INH) INHALATION SCH (01:00)
[2018-01-31] MEDS ORDERED: Morphine Inj 4 MG/ML Vial IV.PUSH PRN (01:16)
[2018-01-31] MEDS ORDERED: Dextrose 50% in Water 50 ML Vial IV.PUSH PRN (02:01)
[2018-01-31] MEDS ORDERED: Digoxin Inj 500 MCG/2 ML Ampul IV.PUSH ONE (03:33)
[2018-01-31] MEDS: Chlorhexidine Gluconate 2% 1 Pack (2 Cloths) TOPICAL SCH (03:47)
[2018-01-31] MEDS: Insulin NovoLOG Aspart Correctional Sugar Inj SQ SCH ×6 (03:56→23:57)
[2018-01-31] MEDS ORDERED: Chlorhexidine Gluconate 2% 1 Pack (2 Cloths) TOPICAL PRN (04:00)
[2018-01-31] MEDS ORDERED: PREGABALIN 150 MG PO SCH (09:00)
[2018-01-31] MEDS ORDERED: Pantoprazole Inj 40 MG Vial IV.PUSH SCH (09:00)
[2018-01-31] MEDS: Famotidine 20 MG Tablet PO SCH ×2 (09:09→20:53)
[2018-01-31] MEDS: dilTIAZem CD 240 MG Capsule PO SCH (09:10)
[2018-01-31] MEDS: Senna/Docusate Sodium 8.6/50 MG Tablet PO SCH ×2 (09:11→20:54)
[2018-01-31] MEDS: Metoprolol Tartrate 50 MG Tablet PO SCH ×2 (09:11→21:59)
[2018-01-31] MEDS: Budesonide-Formoterol 160/4.5 MCG 6 GM Inhaler INH SCH ×2 (09:14→20:54)
--- NOTE | 2018-01-31 09:49 | ECG ---
Date Performed: 01/31/2018 Time Performed: 00:47:14 PTAGE: 72 years EKG: ATRIAL FIBRILLATION WITH RAPID VENTRICULAR RESPONSE WITH ABERRANT CONDUCTION OR VENTRICULAR PREMATURE COMPLEXES Nonspecific ST and T wave abnormalities A ABNORMAL ECG No significant change fro m prior electrocardiogram. PREVIOUS TRACING : 11/08/2017 05.54 DOCTOR: Salo Fisher Interpretating Date/Time 01/31/2018 09:49:03
--- NOTE | 2018-01-31 09:53 | ECG ---
Date Performed: 01/30/2018 Time Performed: 22:14:44 PTAGE: 72 years EKG: ATRIAL FIBRILLATION WITH RAPID VENTRICULAR RESPONSE WITH ABERRANT CONDUCTION OR VENTRICULAR PREMATURE COMPLEXES Nonspecific ST and T wave abnormalities ABNORMAL ECG No significant change from prior electrocardiogram. DOCTOR: Salo Fisher Interpretating Date/Time 01/31/2018 09:51:31
[2018-01-31] MEDS: Pregabalin 75 MG Capsule PO SCH (10:21)
--- NOTE | 2018-01-31 11:49 | ECG ---
Date Performed: 01/31/2018 Time Performed: 10:43:09 PTAGE: 72 years EKG: ATRIAL FIBRILLATION Nonspecific ST and T wave abnormalities ABNORMAL ECG No significant krunal nge from prior electrocardiogram. PREVIOUS TRACING : 01/31/2018 00.47 DOCTOR: Salo Fisher Interpretating Date/Time 01/31/2018 11:47:36
[2018-02-01] MEDS: Chlorhexidine Gluconate 2% 1 Pack (2 Cloths) TOPICAL SCH (03:17)
[2018-02-01 04:24] LABS: Baso % (Auto) 0.8 % (0.0-2.0); Eos # (Auto) 0.1 th/mm3 (0.0-0.4); Eos % (Auto) 1.3 % (0.0-4.0); Hematocrit 31.9 % (35.0-46.0); Hemoglobin 9.9 gm/dL (11.6-15.3); Lymph % (Auto) 21.6 % (9.0-44.0); Mean Corpuscular Hemoglobin 26.6 pg (27.0-34.0); Mean Corpuscular Volume 85.8 fL (80.0-100.0); Mean Platelet Volume 10.2 fL (7.0-11.0); Mono # (Auto) 0.7 th/mm3 (0.0-0.9); Mono % (Auto) 16.4 % (0.0-8.0); Neut # (Auto) 2.7 th/mm3 (1.8-7.7); Neut % (Auto) 59.9 % (16.0-70.0); Platelet Count 132 th/mm3 (150-450); Red Blood Count 3.71 mil/mm3 (4.00-5.30); White Blood Count 4.5 th/mm3 (4.0-11.0)
[2018-02-01 04:34] LABS: Calcium 8.7 mg/dL (8.5-10.1); Carbon Dioxide 28.4 meq/L (21.0-32.0); Magnesium 1.9 mg/dL (1.5-2.5); Potassium 3.4 meq/L (3.5-5.1)
[2018-02-01 04:39] LABS: Phosphorus 3.6 mg/dL (2.5-4.9)
[2018-02-01] MEDS: Insulin NovoLOG Aspart Correctional Sugar Inj SQ SCH ×5 (05:42→20:15)
--- NOTE | 2018-02-01 05:53 | XR ---
EXAM DATE: 02/01/2018 12:00 AM EDT AGE/SEX: 72 years / Female INDICATIONS: Shortness of breath. CLINICAL DATA: This is the patient's subsequent encounter. Patient reports that signs and symptoms h ave been present for 3 days and indicates a pain score of 0/10. MEDICAL/SURGICAL HISTORY: . A-fib. CHF. Kidney disease. C-Diff. COPD. Diabetes. . hysterectomy . CABG. rt knee replacement. back surgery. cataract sx. esophageal dilatation. heart cath with stent placement. [place] [facility] [place]. . FINDINGS: Persistent bibasilar airspace disease and associated small pleural effusions. Cardiac silhouette dennis ins enlarged. Remainder of the exam is unchanged. CONCLUSION: 1. Cardiomegaly with positive fluid balance. 2. Mild bibasilar airspace disease and associated small bilateral pleural effusions. Electronically signed by: Michael Licea MD 02/01/2018 5:52 AM EDT
[2018-02-01] MEDS: Senna/Docusate Sodium 8.6/50 MG Tablet PO SCH ×2 (08:49→20:13)
[2018-02-01] MEDS: Famotidine 20 MG Tablet PO SCH ×2 (08:49→20:13)
[2018-02-01] MEDS: dilTIAZem CD 240 MG Capsule PO SCH (08:50)
[2018-02-01] MEDS: Metoprolol Tartrate 50 MG Tablet PO SCH ×2 (08:50→20:14)
[2018-02-01] MEDS: Pregabalin 75 MG Capsule PO SCH (08:50)
[2018-02-01] MEDS: Budesonide-Formoterol 160/4.5 MCG 6 GM Inhaler INH SCH ×2 (08:52→20:15)
[2018-02-01] MEDS ORDERED: Influenza (Quadrivalent) Vaccine 0.5 ML Syringe IM ONE (09:00)
[2018-02-01] MEDS ORDERED: Pneumococcal-23 Polyvalent Vaccine Inj 25 MCG/0.5 ML Syringe IM ONE (09:00)
--- NOTE | 2018-02-01 17:34 | P.PNCC ---
Subjective Subjective Remarks/Hospital Course: 72-year-old female with past medical history of COPD, hypertension, coronary artery disease with remote prior CABG, prior stents, CHF, atrial fibrillation, chronic kidney disease stage III, episode of respiratory failure requiring intubation in September of 2017, ongoing tobacco abuse, peripheral arterial disease. She states she developed shortness of breath, chest pressure (moderate , non-pleuritic, substernal, non radiating) and slight nonproductive cough this evening. No fever, chills, nausea, vomiting, or diaphoresis. EVAC noted bilateral rales and initiated CPAP and Lasix 80mg IV. She was transitioned to BIPAP in the ED. She was in Afib RVR rate 150s and was given Cardizem 10 mg IV and then started on Cardizem drip. NTG paste applied. CXR showed cardiomegaly and pulmonary edema. BNP 2400, troponin 0.02. She feels improved, asking for something to drink. States she desires DNR/DNI. States she ambulates very minimally due to generalized weakness. Mostly uses a wheelchair. 02/01: She has been suitably diuresed and is breathing with a little bit more comfort now. Still requiring supplemental oxygen. Ventricular response rate is well controlled. Her ultimate plan is to transition to home following a short change in a SNF/rehab facility. We are presently in the process of arranging transfer. We will check in the morning and see if we have made a dent in her BNP. Objective Vital Signs / I&O: Vital Signs 01/31/18 18:00 01/31/18 20:00 01/31/18 20:41 Temperature 97.8 F Pulse Rate 66 70 62 Respiratory Rate 21 18 20 Blood Pressure 88/52 L 100/57 L Pulse Oximetry 99 99 100 02/01/18 00:00 02/01/18 02:56 02/01/18 04:00 Temperature 97.7 F 97.4 F L Pulse Rate 82 78 90 Respiratory Rate 13 16 12 Blood Pressure 111/69 102/61 Pulse Oximetry 100 100 02/01/18 07:57 02/01/18 08:00 02/01/18 16:13 Temperature Pulse Rate 79 79 Respiratory Rate 18 18 Blood Pressure Pulse Oximetry 100 100 Intake & Output 01/31/18 02/01/18 02/01/18 18:59 06:59 18:59 Weight 83.8 kg Other: # Voids 2 4 Date of Last Bowel Movement 01/31/18 01/31/18 02/01/18 # Bowel Movements 1 1 Result Diagrams: 02/01/18 02:56 02/01/18 02:56 Objective Remarks: Narrative: GENERAL: Overweight, pleasant female SKIN: Warm and dry, adequately perfused. Ecchymosis left forearm. HEAD: Atraumatic. Normocephalic. EYES: Pupils equal and round, 2 mm reactive. No scleral icterus. No injection or drainage. ENT: Bipap mask in place, removed at one point to speak to her. Mucous membranes dry. There is a single prolene suture in left upper lip at the vermilion border. Healing ecchymosis overlying left cheek. NECK: Trachea midline. Airway widely patent, no obstructive noises. CARDIOVASCULAR: irregularly irregular, rate 64-71. RESPIRATORY: Mildly labored respirations, light wheezes. GASTROINTESTINAL: Abdomen soft, non-tender, nondistended. Supra pubic scar well -healed. Bowel sounds present. MUSCULOSKELETAL: Extremities without clubbing, cyanosis. Scars bilateral feet from prior bunionectomy. 1+ edema right lower extremity. NEUROLOGICAL: Awake and alert, oriented to person, place, circumstance. No obvious cranial nerve deficits. Motor grossly within normal limits. Normal speech. Assessment and Plan - Assessment and Plan Plan: NEURO: Peripheral neuropathy Chronic pain Continue Lyrica 150 mg p.o. daily Continue oxycodone as needed for pain. Morphine as needed for breakthrough pain RESP: Acute hypoxemic and hypercapnic respiratory failure on BiPAP Pulmonary edema COPD Ongoing tobacco abuse DuoNeb every 6 hours. Albuterol every 2 hours. Continue fluticasone/salmeterol 250/51 1 puff q 12 hours. Tobacco cessation counseling. Diuresis as per below CV: Atrial fibrillation with RVR Acute on chronic systolic heart failure CAD with prior CABG and stents Peripheral arterial disease Cardizem drip, wean as tolerated. Cardizem 240 mg po daily in am. Metoprolol 50 mg po bid. Add digoxin if needed for rate control. NTG paste on chest now Continue Brilinta 90 mg po bid, Change Eliquis to 2.5 mg bid based on renal function. Lasix 80 mg IV prior to arrival. Lasix 40 mg IV q8. Monitor UOP 2D echo 09/10/17mildly dilated LV. Ejection fraction 35-40% with global dysfunction. Moderate to severe left atrial dilatation, moderate right atrial dilatation. Pulmonary artery pressure 44 mmHg. GI: Obesity ice chips/clear liquids. Advance heart healthy diet when respiratory status improves. GERD on famotidine chronically bowel regimen FEN/RENAL: Chronic kidney disease stage III Creatinine is 2.0 and baseline is around 1.6-2.5. Monitor BMP/electrolytes and replace as indicated. Monitor intake and output. Purewick catheter. ID: Monitor for signs and symptoms of infection. UA is negative. No leukocytosis or fever. HEME: Chronic anemia Chronic anticoagulation with Eliquis Monitor CBC SKIN: Suture in left lip from 01/22. Will request nurse removal. ENDO: Diabetes mellitus Monitor bedside every 4 hours and administer low-dose insulin sliding scale as indicated. PROPH: SCDs for DVT prophylaxis. Eliquis provide DVT prophylaxis.. Famotidine for stress ulcer prophylaxis. ACCESS: Peripheral IV providing adequate access at this time. DNR Patient is capacitated for medical decision-making. She states that she does not want to be intubated "even if it means she will ". She states she wishes to be DNR. Patient is on hospice. Overall impression: Dilated cardiomyopathy and respiratory problems related to fluid retention. Moderately better over the last 36 hours and she now is on nasal prongs. Where at that stage were successful diuresis will likely impair renal function. Hospice is an appropriate choice and she is presently deciding which hospice she would like to be affiliated with. Case management is helping her with this paperwork.
[2018-02-02] MEDS: Insulin NovoLOG Aspart Correctional Sugar Inj SQ SCH ×5 (00:13→20:19)
[2018-02-02] MEDS: Chlorhexidine Gluconate 2% 1 Pack (2 Cloths) TOPICAL SCH (05:06)
[2018-02-02 07:56] LABS: Calcium 8.7 mg/dL (8.5-10.1); Carbon Dioxide 30.7 meq/L (21.0-32.0); Potassium 3.1 meq/L (3.5-5.1)
[2018-02-02] MEDS: Senna/Docusate Sodium 8.6/50 MG Tablet PO SCH ×2 (10:31→20:21)
[2018-02-02] MEDS: Metoprolol Tartrate 50 MG Tablet PO SCH ×2 (10:31→20:19)
[2018-02-02] MEDS: Famotidine 20 MG Tablet PO SCH ×2 (10:31→20:23)
[2018-02-02] MEDS: dilTIAZem CD 240 MG Capsule PO SCH (10:31)
[2018-02-02] MEDS: Pregabalin 75 MG Capsule PO SCH (10:32)
[2018-02-02] MEDS: Budesonide-Formoterol 160/4.5 MCG 6 GM Inhaler INH SCH ×2 (10:34→21:44)
[2018-02-02] MEDS ORDERED: Dextrose 50% in Water 50 ML Vial IV.PUSH PRN (12:01)
--- NOTE | 2018-02-02 17:42 | P.PNIM ---
Subjective Interval history: Patient seen around noon. Says she is feeling better. Denies any chest pain. Reports shortness of breath has improved. Physical Exam Vital signs: Vital Signs 02/01/18 20:00 02/01/18 20:31 02/02/18 00:00 Temperature 97.7 F Pulse Rate 74 88 72 Respiratory Rate 14 14 Blood Pressure 100/56 L Pulse Oximetry 100 100 02/02/18 00:06 02/02/18 03:29 02/02/18 04:00 Temperature 98.0 F 97.7 F Pulse Rate 78 100 H 83 Respiratory Rate 18 22 17 Blood Pressure 94/56 L 103/57 L Pulse Oximetry 97 97 97 02/02/18 08:00 02/02/18 08:04 02/02/18 12:00 Temperature 97.7 F Pulse Rate 83 76 112 H Respiratory Rate 18 14 Blood Pressure 106/70 Pulse Oximetry 99 98 02/02/18 15:10 02/02/18 16:00 Temperature 97.9 F Pulse Rate 69 62 Respiratory Rate 15 16 Blood Pressure 86/60 L Pulse Oximetry 95 Intake & Output 02/01/18 02/02/18 02/02/18 18:59 06:59 18:59 Intake Total 700 / 700 Output Total 900 / 900 Balance 700 / 700 -900 / -900 Intake: Oral 700 / 700 Output: Urine 900 / 900 Other: # Voids 4 2 Date of Last Bowel Movement 02/01/18 02/02/18 # Bowel Movements 2 1 Narrative: GENERAL: Patient sitting up in bed. Appears comfortable. 3 L oxygen. SKIN: Warm and dry. HEAD: Normocephalic. EYES: No scleral icterus. No injection or drainage. NECK: Supple, trachea midline. Positive JVD. CARDIOVASCULAR: Regular rate and rhythm without murmurs, gallops, or rubs. RESPIRATORY: Breath sounds equal bilaterally. No accessory muscle use. GASTROINTESTINAL: Abdomen soft, non-tender, nondistended. MUSCULOSKELETAL: No cyanosis. Trace edema. BACK: Nontender without obvious deformity. No CVA tenderness. Results - Labs CBC & Chem 7: 02/01/18 02:56 02/02/18 06:20 Laboratory Results - last 24 hr 02/01/18 02/02/18 02/02/18 19:42 06:20 06:20 Sodium 140 Potassium 3.1 L Chloride 98 Carbon Dioxide 30.7 Anion Gap 11 BUN 29 H Creatinine 1.98 H Estimated GFR 25 L POC Glucose 176 H Random Glucose 103 Calcium 8.7 B-Natriuretic Peptide 2062 H 02/02/18 02/02/18 08:42 11:55 Sodium Potassium Chloride Carbon Dioxide Anion Gap BUN Creatinine Estimated GFR POC Glucose 100 110 Random Glucose Calcium B-Natriuretic Peptide Assessment and Plan - Plan NEURO: Peripheral neuropathy Chronic pain Continue Lyrica 150 mg p.o. daily Continue oxycodone as needed for pain. Morphine as needed for breakthrough pain RESP: Acute hypoxemic and hypercapnic respiratory failure on BiPAP Pulmonary edema COPD Ongoing tobacco abuse DuoNeb every 6 hours. Albuterol every 2 hours. Continue fluticasone/salmeterol 250/51 1 puff q 12 hours. Tobacco cessation counseling. Diuresis as per below CV: Atrial fibrillation with RVR Acute on chronic systolic heart failure CAD with prior CABG and stents Peripheral arterial disease Cardizem drip, wean as tolerated. Cardizem 240 mg po daily in am. Metoprolol 50 mg po bid. Add digoxin if needed for rate control. NTG paste on chest now Continue Brilinta 90 mg po bid, Change Eliquis to 2.5 mg bid based on renal function. Lasix 80 mg IV prior to arrival. Lasix 40 mg IV q8. Monitor UOP 2D echo 09/10/17mildly dilated LV. Ejection fraction 35-40% with global dysfunction. Moderate to severe left atrial dilatation, moderate right atrial dilatation. Pulmonary artery pressure 44 mmHg. = 10/2. With borderline hypotension. Will hold off on IV Lasix for now. Recheck labs tomorrow. Will start on p.o. Lasix. Fluid restrictions. Patient request consult to Dr. Madden. Will order echocardiogram and consult Dr. Madden. GI: Obesity ice chips/clear liquids. Advance heart healthy diet when respiratory status improves. GERD on famotidine chronically bowel regimen FEN/RENAL: Chronic kidney disease stage III Creatinine is 2.0 and baseline is around 1.6-2.5. Monitor BMP/electrolytes and replace as indicated. Monitor intake and output. Purewick catheter. ID: Monitor for signs and symptoms of infection. UA is negative. No leukocytosis or fever. HEME: Chronic anemia Chronic anticoagulation with Eliquis Monitor CBC SKIN: Suture in left lip from 9/21. Will request nurse removal. ENDO: Diabetes mellitus Monitor bedside every 4 hours and administer low-dose insulin sliding scale as indicated. PROPH: SCDs for DVT prophylaxis. Eliquis provide DVT prophylaxis.. Famotidine for stress ulcer prophylaxis. ACCESS: Peripheral IV providing adequate access at this time. DNR Discharge Planning: Patient is on hospice. Patient would like to be on appropriate treatment and then discharge to hospice.
--- NOTE | 2018-02-02 21:01 | ECHRPT ---
Indication: Heart Failure CONCLUSIONS Mildly dilated left ventricle. Wall thickness is measured at the upper limits of normal. The left ventricular systolic function is [id number] reduced with an estimated ejection fra ction in the range of 35-40%. The left atrial size is mildly dilated. Calcification of the anterior mitral valve leaflet. Severe mitral valve regurgitation with possible flail posterior mitral valve leaflet. May consider T EE for more definitive evaluation. Aortic valve sclerosis is present. Trace aortic valve regurgitation. There is mild to moderate tricuspid valve regurgitation. The estimated pulmonary arterial pressure is 38 mmHg. Trivial pulmonary valve regurgitation. Dilated inferior vena cava with poor inspiration collapse consistent with estimated RAP 15+mmHg. BP: / HR: Rhythm: MEASUREMENTS (Male / Female) Normal Values Technical Quality:Fair 2D ECHO LV Diastolic Diameter PLAX 5.7 cm 4.2 - 5.9 / 3.9 - 5.3 cm LV Systolic Diameter PLAX 4.4 cm IVS Diastolic Thickness 0.9 cm 0.6 - 1.0 / 0.6 - 0.9 cm LVPW Diastolic Thickness 1.1 cm 0.6 - 1.0 / 0.6 - 0.9 cm LV Relative Wall Thickness 0.3 RV Internal Dim ED PLAX 3.2 cm LVOT Diameter 2.0 cm Aortic Root Diameter 2.6 cm LA Systolic Diameter LX 4.8 cm 3.0 - 4.0 / 2.7 - 3.8 cm DOPPLER AV Peak Velocity 173.0 cm/s AV Peak Gradient 12.0 mmHg AI Peak Velocity 363.5 cm/s AI Peak Gradient 52.9 mmHg AI Pressure Half Time 578.0 ms Mitral E Point Velocity 143.0 cm/s LV E' Lateral Velocity 13.2 cm/s Mitral E to LV E' Lateral Ratio 10.8 LV E' Septal Velocity 8.2 cm/s Mitral E to LV E' Septal Ratio 17.5 TR Peak Velocity 263.0 cm/s TR Peak Gradient 27.7 mmHg Right Atrial Pressure 10.0 mmHg Pulmonary Artery Systolic Pressu 37.7 mmHg Right Ventricular Systolic Press 37.7 mmHg PV Peak Velocity 95.0 cm/s PV Peak Gradient 3.6 mmHg FINDINGS LEFT VENTRICLE Mildly dilated left ventricle. Wall thickness is measured at the upper limits of normal. The left ventricular systolic function is [id number] reduced with an estimated ejection fra ction in the range of 35-40%. RIGHT VENTRICLE Normal right ventricular size and systolic function. LEFT ATRIUM The left atrial size is mildly dilated. RIGHT ATRIUM The right atrial size is normal. ATRIAL SEPTUM Normal atrial septal thickness without atrial level shunting by limited color doppler interrogation. AORTA The aortic root and proximal ascending aorta are normal in size on limited imaging. MITRAL VALVE Calcification of the anterior mitral valve leaflet. Severe mitral valve regurgitation with possible flail posterior mitral valve leaflet. AORTIC VALVE Trileaflet aortic valve. Aortic valve sclerosis is present. Trace aortic valve regurgitation. TRICUSPID VALVE There is mild to moderate tricuspid valve regurgitation. The estimated pulmonary arterial pressure is 38 mmHg. PULMONARY VALVE Trivial pulmonary valve regurgitation. VESSELS Dilated inferior vena cava with poor inspiration collapse consistent with elevated right atrial pres sure. PERICARDIUM No pericardial effusion. Elie Munoz (Electronically Signed) Final Date:02 February 2018 21:00
[2018-02-03] MEDS: Chlorhexidine Gluconate 2% 1 Pack (2 Cloths) TOPICAL SCH (05:13)
[2018-02-03] MEDS: Insulin NovoLOG Aspart Correctional Sugar Inj SQ SCH ×4 (07:28→21:47)
[2018-02-03 08:04] LABS: Baso % (Auto) 0.6 % (0.0-2.0); Eos # (Auto) 0.1 th/mm3 (0.0-0.4); Eos % (Auto) 1.6 % (0.0-4.0); Hematocrit 30.9 % (35.0-46.0); Hemoglobin 9.7 gm/dL (11.6-15.3); Lymph # (Auto) 0.9 th/mm3 (1.0-4.8); Lymph % (Auto) 18.9 % (9.0-44.0); Mean Corpuscular HGB Conc 31.4 % (32.0-36.0); Mean Corpuscular Hemoglobin 26.8 pg (27.0-34.0); Mean Corpuscular Volume 85.4 fL (80.0-100.0); Mono # (Auto) 0.7 th/mm3 (0.0-0.9); Mono % (Auto) 15.4 % (0.0-8.0); Neut # (Auto) 3.1 th/mm3 (1.8-7.7); Neut % (Auto) 63.5 % (16.0-70.0); Platelet Count 141 th/mm3 (150-450); Red Blood Count 3.62 mil/mm3 (4.00-5.30); Red Cell Distribution Width 17.1 % (11.6-17.2); White Blood Count 4.8 th/mm3 (4.0-11.0)
[2018-02-03] MEDS: Pregabalin 75 MG Capsule PO SCH (08:04)
[2018-02-03] MEDS: Senna/Docusate Sodium 8.6/50 MG Tablet PO SCH ×2 (08:04→21:48)
[2018-02-03] MEDS: dilTIAZem CD 240 MG Capsule PO SCH (08:05)
[2018-02-03] MEDS: Metoprolol Tartrate 50 MG Tablet PO SCH ×2 (08:06→21:47)
[2018-02-03] MEDS: Famotidine 20 MG Tablet PO SCH ×2 (08:06→21:47)
[2018-02-03] MEDS: Budesonide-Formoterol 160/4.5 MCG 6 GM Inhaler INH SCH ×2 (08:07→23:39)
[2018-02-03 08:43] LABS: Calcium 8.5 mg/dL (8.5-10.1); Carbon Dioxide 33.3 meq/L (21.0-32.0); Magnesium 2.2 mg/dL (1.5-2.5); Potassium 3.6 meq/L (3.5-5.1)
[2018-02-03 08:45] LABS: Phosphorus 3.9 mg/dL (2.5-4.9)
--- NOTE | 2018-02-03 15:30 | P.PNIM ---
Subjective Interval history: Patient denies any changes. Reports shortness of breath continues unchanged from yesterday. Denies any chest pain. Physical Exam Vital signs: Vital Signs 02/02/18 16:00 02/02/18 19:18 02/02/18 19:55 Temperature 97.9 F 97.2 F L Pulse Rate 62 96 H 71 Respiratory Rate 16 18 18 Blood Pressure 86/60 L 111/73 Pulse Oximetry 95 100 99 02/02/18 20:00 02/03/18 00:00 02/03/18 04:00 Temperature 97.7 F 97.7 F 97.7 F Pulse Rate 70 84 84 Respiratory Rate 16 16 16 Blood Pressure 90/62 L 97/69 L 114/64 Pulse Oximetry 100 02/03/18 08:00 02/03/18 08:12 02/03/18 12:00 Temperature 97.4 F L 97.9 F Pulse Rate 74 81 69 Respiratory Rate 18 20 17 Blood Pressure 111/61 109/68 Pulse Oximetry 99 100 Intake & Output 02/02/18 02/03/18 02/03/18 18:59 06:59 18:59 Intake Total 600 / 600 600 / 600 Balance 600 / 600 600 / 600 Weight 81.4 kg Intake: Oral 600 / 600 600 / 600 Other: # Voids 3 3 Date of Last Bowel Movement 02/02/18 # Bowel Movements 3 Narrative: GENERAL: Patient sitting up in bed. Appears comfortable. 3 L oxygen. Oriented x3. SKIN: Warm and dry. HEAD: Normocephalic. EYES: No scleral icterus. No injection or drainage. NECK: Supple, trachea midline. Positive JVD. CARDIOVASCULAR: Regular rate and rhythm without murmurs, gallops, or rubs. RESPIRATORY: Breath sounds equal bilaterally. No accessory muscle use. GASTROINTESTINAL: Abdomen soft, non-tender, nondistended. MUSCULOSKELETAL: No cyanosis. Trace edema. BACK: Nontender without obvious deformity. No CVA tenderness. Results - Labs CBC & Chem 7: 02/03/18 07:00 02/03/18 07:00 Laboratory Results - last 24 hr 02/02/18 02/03/18 02/03/18 19:37 07:00 07:00 WBC 4.8 RBC 3.62 L Hgb 9.7 L Hct 30.9 L MCV 85.4 MCH 26.8 L MCHC 31.4 L RDW 17.1 Plt Count 141 L MPV 10.0 Neut % (Auto) 63.5 Lymph % (Auto) 18.9 [place] % (Auto) 15.4 H Eos % (Auto) 1.6 Baso % (Auto) 0.6 Neut # (Auto) 3.1 Lymph # (Auto) 0.9 L [place] # (Auto) 0.7 Eos # (Auto) 0.1 Baso # (Auto) 0.0 WBC Differential . Differential Comment Auto diff final Sodium 141 Potassium 3.6 Chloride 101 Carbon Dioxide 33.3 H Anion Gap 7 BUN 28 H Creatinine 2.00 H Estimated GFR 24 L POC Glucose 134 H Random Glucose 77 Calcium 8.5 Phosphorus 3.9 Magnesium 2.2 Albumin 3.0 L 02/03/18 02/03/18 07:27 12:03 WBC RBC Hgb Hct MCV MCH MCHC RDW Plt Count MPV Neut % (Auto) Lymph % (Auto) [place] % (Auto) Eos % (Auto) Baso % (Auto) Neut # (Auto) Lymph # (Auto) [place] # (Auto) Eos # (Auto) Baso # (Auto) WBC Differential Differential Comment Sodium Potassium Chloride Carbon Dioxide Anion Gap BUN Creatinine Estimated GFR POC Glucose 97 112 H Random Glucose Calcium Phosphorus Magnesium Albumin Assessment and Plan - Plan NEURO: Peripheral neuropathy Chronic pain Continue Lyrica 150 mg p.o. daily Continue oxycodone as needed for pain. Morphine as needed for breakthrough pain RESP: Acute hypoxemic and hypercapnic respiratory failure on BiPAP Pulmonary edema COPD Ongoing tobacco abuse DuoNeb every 6 hours. Albuterol every 2 hours. Continue fluticasone/salmeterol 250/51 1 puff q 12 hours. Tobacco cessation counseling. Diuresis as per below CV: Atrial fibrillation with RVR Acute on chronic systolic heart failure CAD with prior CABG and stents Peripheral arterial disease Cardizem drip, wean as tolerated. Cardizem 240 mg po daily in am. Metoprolol 50 mg po bid. Add digoxin if needed for rate control. NTG paste on chest now Continue Brilinta 90 mg po bid, Change Eliquis to 2.5 mg bid based on renal function. Lasix 80 mg IV prior to arrival. Lasix 40 mg IV q8. Monitor UOP 2D echo 09/10/17mildly dilated LV. Ejection fraction 35-40% with global dysfunction. Moderate to severe left atrial dilatation, moderate right atrial dilatation. Pulmonary artery pressure 44 mmHg. = 10/2. With borderline hypotension. Will hold off on IV Lasix for now. Recheck labs tomorrow. Will start on p.o. Lasix. Fluid restrictions. Patient request consult to Dr. Madden. Will order echocardiogram and consult Dr. Madden. = Discussed with cardiology who has cleared patient for discharge. Follow-up with cardiology as outpatient. Appreciate assistance. GI: Obesity ice chips/clear liquids. Advance heart healthy diet when respiratory status improves. GERD on famotidine chronically bowel regimen FEN/RENAL: Chronic kidney disease stage III Creatinine is 2.0 and baseline is around 1.6-2.5. Monitor BMP/electrolytes and replace as indicated. Monitor intake and output. Purewick catheter. ID: Monitor for signs and symptoms of infection. UA is negative. No leukocytosis or fever. HEME: Chronic anemia Chronic anticoagulation with Eliquis Monitor CBC SKIN: Suture in left lip from 01/22. Will request nurse removal. ENDO: Diabetes mellitus Monitor bedside every 4 hours and administer low-dose insulin sliding scale as indicated. PROPH: SCDs for DVT prophylaxis. Eliquis provide DVT prophylaxis.. Famotidine for stress ulcer prophylaxis. ACCESS: Peripheral IV providing adequate access at this time. DNR Discharge Planning: Patient says she is not on hospice, but does not want invasive treatment. Patient would like to be on appropriate treatment and then discharge to rehab/ snf
--- NOTE | 2018-02-03 15:40 | P.DS ---
Date of admission: 01/30/18 23:48 Primary care physician: Priyank Freire MD, [facility] Brief History from admission: 72-year-old female with past medical history of COPD, hypertension, coronary artery disease with remote prior CABG, prior stents, CHF, atrial fibrillation, chronic kidney disease stage III, episode of respiratory failure requiring intubation in September of 2017, ongoing tobacco abuse, peripheral arterial disease. She states she developed shortness of breath, chest pressure (moderate , non-pleuritic, substernal, non radiating) and slight nonproductive cough this evening. No fever, chills, nausea, vomiting, or diaphoresis. EVAC noted bilateral rales and initiated CPAP and Lasix 80mg IV. She was transitioned to BIPAP in the ED. She was in Afib RVR rate 150s and was given Cardizem 10 mg IV and then started on Cardizem drip. NTG paste applied. CXR showed cardiomegaly and pulmonary edema. BNP 2400, troponin 0.02. She feels improved, asking for something to drink. States she desires DNR/DNI. States she ambulates very minimally due to generalized weakness. Mostly uses a wheelchair. DS: Medications - Discharge Medications Prescriptions: diltiazem HCl 240 mg PO DAILY 30 Days #30 cap metoprolol tartrate 25 mg PO BID #60 tab DS: Summary Hospital Course: Patient presented with atrial fibrillation, RVR, fluid overload. She was diuresed, and heart rate was controlled. Echocardiogram performed shows ejection fraction 3540 percent. Please see report. Discussed case with cardiology, was started on anticoagulation. Follow-up with cardiology as outpatient. For problem-based summary from most recent progress note, please see below. NEURO: Peripheral neuropathy Chronic pain Continue Lyrica 150 mg p.o. daily Continue oxycodone as needed for pain. Morphine as needed for breakthrough pain RESP: Acute hypoxemic and hypercapnic respiratory failure on BiPAP Pulmonary edema COPD Ongoing tobacco abuse DuoNeb every 6 hours. Albuterol every 2 hours. Continue fluticasone/salmeterol 250/51 1 puff q 12 hours. Tobacco cessation counseling. Diuresis as per below CV: Atrial fibrillation with RVR Acute on chronic systolic heart failure CAD with prior CABG and stents Peripheral arterial disease Cardizem drip, wean as tolerated. Cardizem 240 mg po daily in am. Metoprolol 50 mg po bid. Add digoxin if needed for rate control. NTG paste on chest now Continue Brilinta 90 mg po bid, Change Eliquis to 2.5 mg bid based on renal function. Lasix 80 mg IV prior to arrival. Lasix 40 mg IV q8. Monitor UOP 2D echo 09/10/17mildly dilated LV. Ejection fraction 35-40% with global dysfunction. Moderate to severe left atrial dilatation, moderate right atrial dilatation. Pulmonary artery pressure 44 mmHg. = 10/2. With borderline hypotension. Will hold off on IV Lasix for now. Recheck labs tomorrow. Will start on p.o. Lasix. Fluid restrictions. Patient request consult to Dr. Madden. Will order echocardiogram and consult Dr. Madden. = Discussed with cardiology who has cleared patient for discharge. Follow-up with cardiology as outpatient. Appreciate assistance. GI: Obesity ice chips/clear liquids. Advance heart healthy diet when respiratory status improves. GERD on famotidine chronically bowel regimen FEN/RENAL: Chronic kidney disease stage III Creatinine is 2.0 and baseline is around 1.6-2.5. Monitor BMP/electrolytes and replace as indicated. Monitor intake and output. Purewick catheter. ID: Monitor for signs and symptoms of infection. UA is negative. No leukocytosis or fever. HEME: Chronic anemia Chronic anticoagulation with Eliquis Monitor CBC SKIN: Suture in left lip from 01/22. Will request nurse removal. ENDO: Diabetes mellitus Monitor bedside every 4 hours and administer low-dose insulin sliding scale as indicated. PROPH: SCDs for DVT prophylaxis. Eliquis provide DVT prophylaxis.. Famotidine for stress ulcer prophylaxis. ACCESS: Peripheral IV providing adequate access at this time. DNR Discharge Planning: Patient says she is not on hospice, but does not want invasive treatment. Patient would like to be on appropriate treatment and then discharge to rehab/ snf - Time Spent with Patient Total time spent providing and/or coordinating discharge services: Greater than 30 minutes Exam Vital signs: Vital Signs 02/02/18 16:00 02/02/18 19:18 02/02/18 19:55 Temperature 97.9 F 97.2 F L Pulse Rate 62 96 H 71 Respiratory Rate 16 18 18 Blood Pressure 86/60 L 111/73 Pulse Oximetry 95 100 99 02/02/18 20:00 02/03/18 00:00 02/03/18 04:00 Temperature 97.7 F 97.7 F 97.7 F Pulse Rate 70 84 84 Respiratory Rate 16 16 16 Blood Pressure 90/62 L 97/69 L 114/64 Pulse Oximetry 100 02/03/18 08:00 02/03/18 08:12 02/03/18 12:00 Temperature 97.4 F L 97.9 F Pulse Rate 74 81 69 Respiratory Rate 18 20 17 Blood Pressure 111/61 109/68 Pulse Oximetry 99 100 Intake & Output 02/02/18 02/03/18 02/03/18 18:59 06:59 18:59 Intake Total 600 / 600 600 / 600 Balance 600 / 600 600 / 600 Weight 81.4 kg Intake: Oral 600 / 600 600 / 600 Other: # Voids 3 3 Date of Last Bowel Movement 02/02/18 # Bowel Movements 3 Results Procedures completed during hospitalization: No invasive procedures. Labs on day of discharge: Labs from last 24 hours 02/03/18 02/03/18 02/03/18 12:03 07:27 07:00 WBC RBC Hgb Hct MCV MCH MCHC RDW Plt Count MPV Neut % (Auto) Lymph % (Auto) [place] % (Auto) Eos % (Auto) Baso % (Auto) Neut # (Auto) Lymph # (Auto) [place] # (Auto) Eos # (Auto) Baso # (Auto) WBC Differential Differential Comment Sodium 141 Potassium 3.6 Chloride 101 Carbon Dioxide 33.3 H Anion Gap 7 BUN 28 H Creatinine 2.00 H Estimated GFR 24 L POC Glucose 112 H 97 Random Glucose 77 Calcium 8.5 Phosphorus 3.9 Magnesium 2.2 Albumin 3.0 L 02/03/18 02/02/18 07:00 19:37 WBC 4.8 RBC 3.62 L Hgb 9.7 L Hct 30.9 L MCV 85.4 MCH 26.8 L MCHC 31.4 L RDW 17.1 Plt Count 141 L MPV 10.0 Neut % (Auto) 63.5 Lymph % (Auto) 18.9 [place] % (Auto) 15.4 H Eos % (Auto) 1.6 Baso % (Auto) 0.6 Neut # (Auto) 3.1 Lymph # (Auto) 0.9 L [place] # (Auto) 0.7 Eos # (Auto) 0.1 Baso # (Auto) 0.0 WBC Differential . Differential Comment Auto diff final Sodium Potassium Chloride Carbon Dioxide Anion Gap BUN Creatinine Estimated GFR POC Glucose 134 H Random Glucose Calcium Phosphorus Magnesium Albumin - Impressions ITS Impressions Chest X-Ray 02/01/18 00:00 CONCLUSION: 1. Cardiomegaly with positive fluid balance. 2. Mild bibasilar airspace disease and associated small bilateral pleural effusions. Discharge Plan - Discharge Disposition Patient Disposition: Discharge to SNF - Discharge Condition Condition: Good - Discharge Order Discharge Orders: Discharge Order (Routine); Ordered 02/03/18 Ordered By: Skyler Morales - Discharge Details Anticipated Discharge Date: 02/03/18 - Physicians Team Primary Care Provider: Priyank Freire Attending Provider: Skyler Morales Other Providers: Sabi Madden MD ; [facility],[place]
[2018-02-04 04:51] VITALS: TEMP 97.3
[2018-02-04] MEDS: Chlorhexidine Gluconate 2% 1 Pack (2 Cloths) TOPICAL SCH (06:03)
[2018-02-04 09:38] VITALS: RESP 18
[2018-02-04] MEDS: Insulin NovoLOG Aspart Correctional Sugar Inj SQ SCH (09:41)
[2018-02-04] MEDS: Pregabalin 75 MG Capsule PO SCH (09:42)
[2018-02-04] MEDS: Budesonide-Formoterol 160/4.5 MCG 6 GM Inhaler INH SCH (09:42)
[2018-02-04] MEDS: dilTIAZem CD 240 MG Capsule PO SCH (09:42)
[2018-02-04] MEDS: Famotidine 20 MG Tablet PO SCH (09:42)
[2018-02-04] MEDS: Metoprolol Tartrate 50 MG Tablet PO SCH (09:42)
[2018-02-04] MEDS: Senna/Docusate Sodium 8.6/50 MG Tablet PO SCH (09:43)
[2018-02-04 11:57] VITALS: BP 115/62; PULSE 77; O2SAT 100
== END 2018-02-04 11:53 ==
LOC: NEPE 21:52 → NEDA 23:48 → N03 01-31 02:39 → N04 02-01 23:44
PROVIDERS: ADMIT Internal Medicine; ATTEND Internal Medicine